=== PATIENT | male | born 1945 | race Native Hawaiian/Other Pacific Islander ===

== ENCOUNTER 2017-07-20 13:12 | Emergency (ER) | payer MEDICARE ==
[2017-07-20 13:19] VITALS: RESP 16; TEMP 98
--- NOTE | 2017-07-20 13:59 | ED ---
General Adult HPI - General Chief complaint: Fall Stated complaint: Foot injury Time Seen by Provider: 07/20/17 13:27 Source: patient, family, RN notes reviewed Mode of arrival: wheelchair Limitations: language barrier - History of Present Illness Initial comments: 71-year-old male presents to the emergency department for chief complaint of left ankle swelling. Patient's son is also helping give history. He states that the patient fell down one step onto his right knee 4 days ago. He also hurt his left ankle. Patient denies any other injuries or head trauma is. Son states that he believes the ankle pain and swelling is due to the fall. patient and son deny history of blood clots or bleeding disorders. Patient has no other complaints at this time. He denies any shortness of breath, chest pain , abdominal pain, nausea or vomiting. - Related Data Home Medications Medication Instructions Recorded Confirmed Fish Oil/Dha/Epa [Fish Oil 1,200 1 cap PO DAILY 07/26/14 07/20/17 mg Fish Oil] Multivitamins, Thera [Multivitamin 1 tab PO DAILY 07/26/14 07/20/17 (formulary)] Lisinopril 30 mg PO DAILY 07/20/17 07/20/17 Previous Rx's Medication Instructions Recorded Aspirin 81 mg PO DAILY chew 07/28/14 Omeprazole [PriLOSEC] 20 mg PO AC-BRKFST capsule. 07/28/14 Simvastatin [Zocor] 80 mg PO DAILY tab 07/28/14 Allergies Allergy/AdvReac Type Severity Reaction Status Date / Time No Known Allergies Allergy Verified 07/20/17 13:59 Review of Systems ROS Statement: Those systems with pertinent positive or pertinent negative responses have been documented in the HPI. ROS Other: All systems not noted in ROS Statement are negative. Past Medical History Past Medical History: CVA/TIA, Hyperlipidemia, Hypertension History of Any Multi-Drug Resistant Organisms: None Reported Past Surgical History: No Surgical Hx Reported Past Psychological History: No Psychological Hx Reported Smoking Status: Current every day smoker Past Alcohol Use History: None Reported Past Drug Use History: None Reported General Exam Limitations: language barrier General appearance: alert, in no apparent distress Respiratory exam: Present: normal lung sounds bilaterally. Absent: respiratory distress, wheezes, rales, rhonchi, stridor Cardiovascular Exam: Present: regular rate, normal rhythm, normal heart sounds. Absent: systolic murmur, diastolic murmur, rubs, gallop, clicks Extremities exam: Present: full ROM (Full range of motion of the left ankle), tenderness (Tenderness to the medial malleolus of the left ankle. No tenderness behind the calf or knee. No tenderness in the foot), normal capillary refill (Refill less than 2 seconds in the left lower extremity. Left PD and PT pulses located with US.), joint swelling (There is mild swelling noted of the medial and lateral left ankle. There is medial ecchymosis noted inferior to the malleolus.). Absent: calf tenderness (No calf tenderness. Negative Homans sign.) Course Vital Signs 07/20/17 13:16 Temperature 98 F Pulse Rate 77 Respiratory 16 Rate Blood Pressure 128/68 O2 Sat by Pulse 98 Oximetry Procedures - Procedures Initial comment: Neurovascular intact before splint application Indication:distal fibula fracture Type: short leg stirrup, left Wounds: no abrasions or lacerations underneath splint Neurovascular status: patient has sensation and movement of digits extending outside the splint, there is no cyanosis, capillary refill < 2 seconds Follow-up: patient given number for orthopedics and instructed to phone to make an appointment. Patient aware he can return to the Emergency Department if any difficulties. Medical Decision Making - Medical Decision Making 71-year-old male presents to the emergency department for a chief complaint of left lower extremity pain 3 days. Patient states he slipped on the last stair and hurt his ankle. Patient denies pain anywhere else. On exam patient does have motion in the left ankle but it is somewhat limited. Patient is tender along the medial malleolus as well as the lateral malleolus. No tenderness in the foot. Ultrasound of the left leg was negative for DVT. X-ray of the left ankle shows an oblique fracture through the distal metaphyseal left fibula with minimal displacement. Patient was splinted in a stirrup splint. He is to follow-up with orthopedics in one to 2 days. He will contact his primary care provider to discuss pain medication options. Patient has no other complaints at this time. He will return to the emergency department if he has any worsening symptoms. Disposition Clinical Impression: Left fibular fracture Disposition: HOME SELF-CARE Condition: Good Instructions: Ankle Fracture (ED) Additional Instructions: Please contact your primary care provider to discuss pain options. Please return to the emergency department if you have any worsening symptoms. Please try not to bear weight on that left leg. Follow-up with orthopedics in one to 2 days. Is patient prescribed a controlled substance at d/c from ED?: No Referrals: Kristine Pena MD [Primary Care Provider] - 1-2 days Nick Dominique DO [Doctor of Osteopathic Medicine] - 1-2 days Time of Disposition: 15:36
--- NOTE | 2017-07-20 14:36 | XR ---
Left ankle HISTORY: Trauma and pain, bruising and swelling 3 views of the left ankle No comparisons Soft tissue swelling is noted. There is an oblique fracture through the distal metaphyseal left fibul a with minimal displacement. Plantar calcaneal spur noted. Degenerative changes incidentally noted at the intertarsal joints. Calcification present at the insertion of the Achilles tendon. IMPRESSION: Distal fibular fracture.
--- NOTE | 2017-07-20 14:45 | US ---
EXAMINATION TYPE: US venous doppler duplex LE LT DATE OF EXAM: 07/20/2017 2:36 PM COMPARISON: NONE CLINICAL HISTORY: Pain. Left ankle pain and swelling x 4 days after fall on stairs SIDE PERFORMED: Left TECHNIQUE: The lower extremity deep venous system is examined utilizing real time linear array sonog denisha with graded compression, doppler sonography and color-flow sonography. VESSELS IMAGED: Common Femoral Vein Deep Femoral Vein Greater Saphenous Vein * Femoral Vein Popliteal Vein Small Saphenous Vein * Proximal Calf Veins (* superficial vessels) Left Leg: Negative for DVT Grayscale, color doppler, spectral doppler imaging performed of the deep veins of the left lower extr emity. There is normal flow, compressibility, vascular waveforms. IMPRESSION: No ultrasound evidence for acute DVT in the left lower extremity.
[2017-07-20 15:52] VITALS: BP 123/71; PULSE 69
== END 2017-07-20 15:50 | disposition home or self-care (01) ==
LOC: EC 13:12
DX: S89.392A Other physeal fracture of lower end of left fibula, initial encounter for closed fracture (principal); F17.200 Nicotine dependence, unspecified, uncomplicated; I10 Essential (primary) hypertension; Z79.899 Other long term (current) drug therapy; W01.0XXA Fall on same level from slipping, tripping and stumbling without subsequent striking against object, initial encounter; W10.9XXA Fall (on) (from) unspecified stairs and steps, initial encounter
CPT/HCPCS: 29515; 99284

== ENCOUNTER 2021-07-31 19:26 | Emergency (ER) | payer MEDICARE ==
[2021-07-31 19:43] VITALS: BP 160/77; PULSE 87; RESP 18; TEMP 99.3
--- NOTE | 2021-07-31 23:05 | ED ---
General Adult HPI - General Chief complaint: Urogenital Stated complaint: Leaking catheter Time Seen by Provider: 07/31/21 20:49 Source: patient, RN notes reviewed Mode of arrival: wheelchair Limitations: language barrier - History of Present Illness Initial comments: 75-year-old male presents to the emergency department accompanied by his son for evaluation of leaking around his Rich catheter. Patient states he missed an appointment today for a prostate procedure. States they noticed leaking around the Rich this afternoon and went to urgent care, but were sent here instead. Son states the Rich catheter has been in place for approximately one month. Patient denies any pain associated with the catheter. No injury, trauma, or accidental tugging on the catheter today. Denies any other issues with catheter function. Reports normal urine output. - Related Data Home Medications Medication Instructions Recorded Confirmed Fish Oil/Dha/Epa [Fish Oil 1,200 1 cap PO DAILY 07/26/14 07/20/17 mg Fish Oil] Multivitamins, Thera [Multivitamin 1 tab PO DAILY 07/26/14 07/20/17 (formulary)] lisinopriL 30 mg PO DAILY 07/20/17 07/20/17 Previous Rx's Medication Instructions Recorded Aspirin 81 mg PO DAILY chew 07/28/14 Omeprazole [PriLOSEC] 20 mg PO AC-BRKFST capsule. 07/28/14 Simvastatin [Zocor] 80 mg PO DAILY tab 07/28/14 Allergies Allergy/AdvReac Type Severity Reaction Status Date / Time No Known Allergies Allergy Verified 06/25/21 12:31 Review of Systems ROS Statement: Those systems with pertinent positive or pertinent negative responses have been documented in the HPI. ROS Other: All systems not noted in ROS Statement are negative. Past Medical History Past Medical History: CVA/TIA, Hyperlipidemia, Hypertension History of Any Multi-Drug Resistant Organisms: None Reported Past Surgical History: No Surgical Hx Reported Past Psychological History: No Psychological Hx Reported Smoking Status: Current every day smoker Past Alcohol Use History: None Reported Past Drug Use History: None Reported General Exam Limitations: language barrier (Patient's son is present at bedside and provides communication assistance) General appearance: alert, in no apparent distress (Well-developed, well- nourished male in no acute distress. Initial temperature 99.3, pulse 87, respirations 18, blood pressure 160/77, pulse ox 98% on room air.) ENT exam: Present: mucous membranes moist Respiratory exam: Present: normal lung sounds bilaterally. Absent: respiratory distress, wheezes, rales, rhonchi, stridor Cardiovascular Exam: Present: regular rate, normal rhythm, normal heart sounds. Absent: systolic murmur, diastolic murmur, rubs, gallop, clicks GI/Abdominal exam: Present: soft, normal bowel sounds. Absent: distended, tenderness, guarding, rebound, rigid exam: Present: other (Rich catheter present. There is some urine noted to be leaking around the catheter, however, leg bag has significant amount of urine collection within it. Son states he is providing care for the patient's catheter.) Back exam: Absent: CVA tenderness (R), CVA tenderness (L) Neurological exam: Present: alert, oriented X3 Psychiatric exam: Present: normal affect, normal mood Skin exam: Present: warm, dry, intact, normal color. Absent: rash Course Vital Signs 07/31/21 19:41 Temperature 99.3 F Pulse Rate 87 Respiratory 18 Rate Blood Pressure 160/77 O2 Sat by Pulse 98 Oximetry - Reevaluation(s) Reevaluation #1: 07/31/21 22:30 Balloon deflated and found to be holding only 6 mLs of water in balloon meant to hold 10mLs. Balloon reinflated with adequate volume. Minimal ongoing leaking and urine noted in catheter and collection bag. He will be discharged home to follow up with urology as soon as possible. Medical Decision Making - Medical Decision Making This is a 75-year-old male with a past medical history of CVA, hypertension, and recent issue with urinary retention. Patient is brought in by his son who is his caregiver and iuss master analyst. Patient began experiencing leaking around his catheter this afternoon. Upon exam, patient is well-appearing and in no acute distress. Vital signs are stable and patient is afebrile. He has complaining of no pain associated with the catheter or in the lower abdomen to indicate concern for urine retention or Rich obstruction. There is a moderate amount of leaking around the Rich initially. Balloon was deflated and found to be deficient in volume therefore reinflated with appropriate amount and patient was monitored. He was noted to have good urine output in leg bag. Minimal amount of urine leaking around the catheter. Was instructed to consider using incontinence pads and to schedule to be seen by urology as soon as possible. Return parameters discussed in detail. Patient and son verbalized understanding and agreed with this plan. Attending: Josephine. Disposition Clinical Impression: Malfunction of Rich catheter Disposition: HOME SELF-CARE Condition: Stable Instructions (If sedation given, give patient instructions): Rich Catheter Placement and Care (ED) Additional Instructions: Utilize incontinence pads if leaking persists. Please call your urologist in the morning to schedule a follow-up appointment as soon as possible. Return to the emergency department with any new, worsening, or concerning symptoms. Is patient prescribed a controlled substance at d/c from ED?: No Referrals: Kristine Pena MD [Primary Care Provider] - 1-2 days Time of Disposition: 23:05
== END 2021-07-31 23:15 | disposition home or self-care (01) ==
LOC: EC 19:26
DX: T83.038A Leakage of other urinary catheter, initial encounter (principal); Z86.73 Personal history of transient ischemic attack (TIA), and cerebral infarction without residual deficits; I10 Essential (primary) hypertension; F17.200 Nicotine dependence, unspecified, uncomplicated

== ENCOUNTER 2023-11-25 12:52 | Inpatient (IN) | payer MEDICARE ==
--- NOTE | 2023-11-25 13:02 | ED ---
General Adult HPI - General Stated complaint: fall, hip injury Time Seen by Provider: 11/25/23 12:55 Source: patient, RN notes reviewed, old records reviewed - History of Present Illness Initial comments: This is a 77-year-old male who is exercising on a stationary bike when he went to get off and fell over and hurt his right hip. Patient states he did not hit his head did not hurt his neck he has no numbness weakness. Patient denies any back or chest pain. Patient has abdominal pain patient denies any upper extremity pain. Patient denies any left lower extremity pain. Patient's only complaint is left hip pain. - Related Data Home Medications Medication Instructions Recorded Confirmed Clopidogrel [Plavix] 75 mg PO DAILY 11/25/23 11/25/23 Lisinopril-Hctz 20-12.5 mg 1 tab PO DAILY 11/25/23 11/25/23 [Zestoretic 20-12.5] Allergies Allergy/AdvReac Type Severity Reaction Status Date / Time No Known Allergies Allergy Verified 11/25/23 17:22 Review of Systems ROS Statement: Those systems with pertinent positive or pertinent negative responses have been documented in the HPI. ROS Other: All systems not noted in ROS Statement are negative. Past Medical History Past Medical History: CVA/TIA, Hyperlipidemia, Hypertension History of Any Multi-Drug Resistant Organisms: None Reported Past Surgical History: No Surgical Hx Reported Past Psychological History: No Psychological Hx Reported Smoking Status: Current every day smoker Past Alcohol Use History: None Reported Past Drug Use History: None Reported General Exam - General Exam Comments Initial Comments: GENERAL: Patient is well-developed and well-nourished. Patient is nontoxic and well- hydrated and is in mild distress. ENT: Neck is soft and supple. No significant lymphadenopathy is noted. Oropharynx is clear. Moist mucous membranes. Neck has full range of motion without eliciting any pain. EYES: The sclera were anicteric and conjunctiva were pink and moist. Extraocular movements were intact and pupils were equal round and reactive to light. Eyelids were unremarkable. PULMONARY: Unlabored respirations. Good breath sounds bilaterally. No audible rales rhonchi or wheezing was noted. CARDIOVASCULAR: There is a regular rate and rhythm without any murmurs gallops or rubs. ABDOMEN: Soft and nontender with normal bowel sounds. SKIN: Skin is clear with no lesions or rashes and otherwise unremarkable. NEUROLOGIC: Patient is alert and oriented x3. Cranial nerves II through XII are grossly intact. Motor and sensory are also intact. Normal speech, volume and content. Symmetrical smile. MUSCULOSKELETAL: Patient is unable to move the left leg at the hip secondary to pain. Patient's leg does appear shortened and mildly internally rotated LYMPHATICS: No significant lymphadenopathy is noted PSYCHIATRIC: Normal psychiatric evaluation. Course Vital Signs 11/25/23 11/25/23 13:13 15:58 Temperature 98.2 F Pulse Rate 51 L 58 L Respiratory 16 18 Rate Blood Pressure 122/53 115/59 O2 Sat by Pulse 98 97 Oximetry Medical Decision Making - Medical Decision Making Was pt. sent in by a medical professional or institution (, PA, BIOMASS TECHNICIAN, urgent care, hospital, or care home...) When possible be specific @ -No Did you speak to anyone other than the patient for history (EMS, parent, family, police, friend...)? What history was obtained from this source @ -No Did you review nursing and triage notes (agree or disagree)? Why? @ -I reviewed and agree with nursing and triage notes Were old charts reviewed (outside hosp., previous admission, EMS record, old EKG, old radiological studies, urgent care reports/EKG's, care home records)? Report findings @ -No old charts were reviewed Differential Diagnosis? @ -Differential Musculoskeletal Muscular strain, contusion, ligament sprain, fracture, arthritis, septic arthritis, bursitis, cellulitis, muscle spasm, nerve compression, DVT, arterial occlusion, herpes zoster, electrolyte abnormality, tumor.... This is not meant to be in all inclusive list EKG interpreted by me (3pts min.). @ -As above X-rays interpreted by me (1pt min.). @ -X-ray shows a subtrochanteric/intertrochanteric fracture of the right hip with some displacement CT interpreted by me (1pt min.). @ -None done U/S interpreted by me (1pt. min.). @ -None done What testing was considered but not performed or refused? (CT, X-rays, U/S, labs)? Why? @ -None What meds were considered but not given or refused? Why? @ -None Did you discuss the management of the patient with other professionals (professionals i.e. , PA, BIOMASS TECHNICIAN, lab, RT, psych nurse, addiction social worker, underground distribution engineer, teacher, special technical operations officer, telehealth case manager)? Give summary @ -I spoke with Dr. Marin he did not want the case because he did not fix those types of fractures. I spoke with Dr. Dominique he excepted the patient. I spoke with Dr. Pena he agreed to be on medical management of this patient. Was smoking cessation discussed for >3mins.? @ -No Was critical care preformed (if so, how long)? @ -No Were there social determinants of health that impacted care today? How? (Homelessness, low income, unemployed, alcoholism, drug addiction, transportation, low edu. Level, literacy, decrease access to med. care, [facility], rehab)? @ -No Was there de-escalation of care discussed even if they declined (Discuss DNR or withdrawal of care, Hospice)? DNR status @ -No What co-morbidities impacted this encounter? (DM, HTN, Smoking, COPD, CAD, Cancer, CVA, ARF, Chemo, Hep., AIDS, mental health diagnosis, sleep apnea, morbid obesity)? @ -None Was patient admitted / discharged? Hospital course, mention meds given and route, prescriptions, significant lab abnormalities, going to OR and other pertinent info. @ -Patient had a hip fracture and will be admitted to Dr. Dominique with a consult to Dr. Pena Undiagnosed new problem with uncertain prognosis? @ -No Drug Therapy requiring intensive monitoring for toxicity (Heparin, Nitro, Insulin, Cardizem)? @ -No Were any procedures done? @ -No Diagnosis/symptom? @ -Right hip fracture Acute, or Chronic, or Acute on Chronic? @ -Acute Uncomplicated (without systemic symptoms) or Complicated (systemic symptoms)? @ -Complicated Side effects of treatment? @ -No Exacerbation, Progression, or Severe Exacerbation? @ -No Poses a threat to life or bodily function? How? (Chest pain, [place], [place], pneumonia, PE, COPD, DKA, ARF, appy, cholecystitis, CVA, Diverticulitis, Homicidal, Suic idal, threat to staff... and all critical care pts) @ -Yes if he does not get this repaired patient will not be able to ambulate - Lab Data Result diagrams: 11/25/23 13:16 11/25/23 13:16 Lab Results 11/25/23 11/25/23 11/25/23 Range/Units 13:16 13:16 13:16 WBC 9.0 (3.8-10.6) k/uL RBC 4.26 L (4.30-5.90) m/uL Hgb 13.2 (13.0-17.5) gm/dL Hct 40.4 (39.0-53.0) % MCV 94.8 (80.0-100.0) fL MCH 31.1 (25.0-35.0) pg MCHC 32.8 (31.0-37.0) g/dL RDW 12.8 (11.5-15.5) % Plt Count 260 (150-450) k/uL MPV 6.9 Neutrophils % 81 % Lymphocytes % 12 % Monocytes % 4 % Eosinophils % 2 % Basophils % 0 % Neutrophils # 7.3 (1.3-7.7) k/uL Lymphocytes # 1.1 (1.0-4.8) k/uL Monocytes # 0.4 (0-1.0) k/uL Eosinophils # 0.2 (0-0.7) k/uL Basophils # 0.0 (0-0.2) k/uL PT 10.5 (10.0-12.5) sec INR 1.0 (<1.2) APTT 23.9 (22.0-30.0) sec Sodium 137 (137-145) mmol/L Potassium 3.8 (3.5-5.1) mmol/L Chloride 104 (98-107) mmol/L Carbon Dioxide 29 (22-30) mmol/L Anion Gap 4 mmol/L BUN 27 H (9-20) mg/dL Creatinine 0.95 (0.66-1.25) mg/dL Est GFR (CKD-EPI)AfAm >90 (>60 ml/min/1.73 sqM) Est GFR (CKD-EPI)NonAf 78 (>60 ml/min/1.73 sqM) Glucose 97 (74-99) mg/dL Calcium 8.5 (8.4-10.2) mg/dL Total Bilirubin 0.4 (0.2-1.3) mg/dL AST 27 (17-59) U/L ALT 14 (4-49) U/L Alkaline Phosphatase 76 (38-126) U/L Total Protein 6.7 (6.3-8.2) g/dL Albumin 3.6 (3.5-5.0) g/dL Disposition Clinical Impression: Closed right hip fracture Disposition: ADMITTED IP TO THIS HOSP Referrals: None,Stated [REFERRING] - 1-2 days Time of Disposition: 18:21
[2023-11-25 13:33] LABS: Basophils % (A) 0 %; Eosinophils # (A) 0.2 k/uL (0-0.7); Eosinophils % (A) 2 %; HCT 40.4 % (39.0-53.0); HGB 13.2 gm/dL (13.0-17.5); Lymphocytes # (A) 1.1 k/uL (1.0-4.8); Lymphocytes % (A) 12 %; MCH 31.1 pg (25.0-35.0); MCHC 32.8 g/dL (31.0-37.0); MCV 94.8 fL (80.0-100.0); Mean Platelet Volume 6.9; Monocytes # (A) 0.4 k/uL (0-1.0); Monocytes % (A) 4 %; Neutrophils # (A) 7.3 k/uL (1.3-7.7); Neutrophils % (A) 81 %; Platelet Count 260 k/uL (150-450); RBC 4.26 m/uL (4.30-5.90); RDW 12.8 % (11.5-15.5)
[2023-11-25 13:38] LABS: Partial Thromboplastin Time 23.9 sec (22.0-30.0); Prothrombin Time 10.5 sec (10.0-12.5)
[2023-11-25 13:56] LABS: ALT 14 U/L (4-49); AST 27 U/L (17-59); African American GFR (CKD) >90 (>60 ml/min/1.73 sqM); Albumin 3.6 g/dL (3.5-5.0); Alkaline Phosphatase 76 U/L (38-126); Anion Gap 4 mmol/L; Blood Urea Nitrogen 27 mg/dL (9-20); Calcium 8.5 mg/dL (8.4-10.2); Carbon Dioxide 29 mmol/L (22-30); Chloride 104 mmol/L (98-107); Glucose 97 mg/dL (74-99); Non-African American GFR(CKD) 78 (>60 ml/min/1.73 sqM); Potassium 3.8 mmol/L (3.5-5.1); Sodium 137 mmol/L (137-145); Total Bilirubin 0.4 mg/dL (0.2-1.3); Total Protein 6.7 g/dL (6.3-8.2)
--- NOTE | 2023-11-25 14:23 | XR ---
EXAMINATION TYPE: XR chest 1V portable DATE OF EXAM: 11/25/2023 1:43 PM CLINICAL INDICATION: Male, 77 years old with history of Short of breath; [facility] COMPARISON: None TECHNIQUE: XR chest 1V portable Frontal view of the chest. FINDINGS: Lungs/Pleura: There is no evidence of pleural effusion, focal consolidation, or pneumothorax. Pulmonary vascularity: Unremarkable. Heart/mediastinum: Cardiomediastinal silhouette is unremarkable. Musculoskeletal: No acute osseous pathology. IMPRESSION: No acute cardiopulmonary disease/process.
--- NOTE | 2023-11-25 14:49 | XR ---
EXAMINATION TYPE: XR Hip RT and AP Pelvis DATE OF EXAM: 11/25/2023 2:24 PM CLINICAL INDICATION: Male, 77 years old with history of trauma; PH[facility] COMPARISON: None. TECHNIQUE: XR Hip RT and AP Pelvis; hip was examined in the frontal and lateral projections and a AP pelvis. FINDINGS/IMPRESSION: Comminuted right femoral subtrochanteric/intertrochanteric fracture with varus deformity. The bony pe lvis and left femur appear intact.
[2023-11-25] MEDS: SODIUM CHLORIDE 0.9% 1,000 ML IV ONE (19:08)
[2023-11-25] MEDS: HYDROmorphone 0.5 MG/0.5 ML SYRINGE IVP PRN (19:46)
[2023-11-26] MEDS: LISINOPRIL-HCTZ 20-12.5 MG 1 EACH TAB PO SCH (10:36)
--- NOTE | 2023-11-26 10:49 | P.HPOR ---
History of Present Illness H&P Date: 11/26/23 This is a 77-year-old male who is admitted for a right hip fracture. Patient is seen and evaluated at bedside today along with his son. The patient's son provides the history due to a language barrier. The patient's son states that Chevy lives at home with him and walks without a walker or cane. Per the son, the patient fell while trying to get off of a stationary exercise bike on 11/25/2023. The patient was taken to the emergency room via ambulance where x-rays revealed a comminuted subtrochanteric fracture of the right femur.The patient reports taking Plavix and aspirin along with a blood pressure medication. Patient and son report that the last dose of Plavix was on 11/25/2023. The patient's past medical history is significant for hypertension, hyperlipidemia and history of CVA/TIA. Patient denies any headache, nausea, head injury, loss of consciousness, abdominal pain, numbness, weakness, tingling, fever/chills or chest pain. Review of Systems See HPI. Past Medical History Past Medical History: CVA/TIA, Hyperlipidemia, Hypertension History of Any Multi-Drug Resistant Organisms: None Reported Past Surgical History: No Surgical Hx Reported Past Psychological History: No Psychological Hx Reported Smoking Status: Current every day smoker Past Alcohol Use History: None Reported Additional Past Alcohol Use History / Comment(s): Has history of alcohol abuse in the past, quit about 5 years ago Past Drug Use History: None Reported Medications and Allergies Home Medications Medication Instructions Recorded Confirmed Type Clopidogrel [Plavix] 75 mg PO DAILY 11/25/23 11/25/23 History Lisinopril-Hctz 20-12.5 mg 1 tab PO DAILY 11/25/23 11/25/23 History [Zestoretic 20-12.5] Allergies Allergy/AdvReac Type Severity Reaction Status Date / Time No Known Allergies Allergy Verified 11/25/23 17:22 Physical Examination On exam patient is comfortably in bed in no acute distress. Patient is alert and oriented 3. Right lower extremity: On exam there is tenderness to palpation over the right upper thigh. Skin is intact. There is no ecchymosis or erythema. Patient has limited motion of the right hip and knee due to acute hip fracture. Patient has full motion of the right foot and ankle. There is no tenderness to palpation over the right knee. Calf is soft and nontender to palpation. Sensation intact. Neurovascular status and circulatory status are intact. Exams of the left lower extremity, bilateral upper extremities and neck are within normal limits. Head is normocephlaic and atraumatic. Results An x-ray report of the right hip and pelvis dated 11/25/2023 shows: Comminuted right femoral subtrochanteric/intertrochanteric fracture with varus deformity. The bony pelvis and left femur appear intact. - Labs Labs: Abnormal Lab Results - Last 24 Hours (Table) 11/25/23 11/25/23 Range/Units 13:16 13:16 RBC 4.26 L (4.30-5.90) m/uL BUN 27 H (9-20) mg/dL H & H 11/25/23 Range/Units 13:16 Hgb 13.2 (13.0-17.5) gm/dL Hct 40.4 (39.0-53.0) % Coagulation 11/25/23 Range/Units 13:16 INR 1.0 (<1.2) Result Diagrams: 11/25/23 13:16 11/25/23 13:16 Assessment and Plan (1) Subtrochanteric fracture of hip Current Visit: Yes Status: Acute Code(s): S72.23XA - DISPLACED SUBTROCHANTERIC FRACTURE OF UNSP FEMUR, INIT SNOMED Code(s): 529141595 (2) Closed right hip fracture Current Visit: Yes Status: Acute Code(s): S72.001A - FRACTURE OF UNSP PART OF NECK OF RIGHT FEMUR, INIT SNOMED Code(s): 629728569 Plan: 1. NPO 2. Bed rest and pain control. Ice and elevate the leg for swelling. 3. Appreciate input from internal medicine. 4. Planning for closed reduction and intramedullary nailing of the right femur later today pending medical clearance and patient consent.
--- NOTE | 2023-11-26 12:32 | P.CONS ---
History of Present Illness - Reason for Consult Consult date: 11/26/23 - History of Present Illness Chevy French, is a 77-year-old male who presented to [facility] emergency room after sustaining a fall from his stationary bike at home and complaining of right hip pain he was evaluated in the emergency room, and had evidence of comminuted right femoral subtrochanteric/intertrochanteric fracture with varus deformity, he is scheduled for orthopedic surgery today. Medical c onsultation was requested for clearance for surgery and for medical management while hospitalized. On presentation to emergency room, vital examination revealed a temperature of 98.2 pulse 51 respiration 16 blood pressure 122/53 pulse ox 98% on room air Laboratory data revealed a white blood count of 9.0 hemoglobin 13.2 platelet count 260, sodium 137 potassium 3.8 chloride 104 CO2 29 BUN 27 creatinine 0.95 AST 27 ALT 14, chest x-ray was within normal limits Past medical history is significant for history of hypertension, history of hyperlipidemia, history of stroke in 2014 On review of systems patient is alert and oriented x 3 he denies any fever or chills no headache or dizziness no chest pain no shortness of breath no cough no nausea or vomiting no abdominal pain no diarrhea no urinary symptoms Past Medical History Past Medical History: CVA/TIA, Hyperlipidemia, Hypertension History of Any Multi-Drug Resistant Organisms: None Reported Past Surgical History: No Surgical Hx Reported Past Psychological History: No Psychological Hx Reported Smoking Status: Current every day smoker Past Alcohol Use History: None Reported Additional Past Alcohol Use History / Comment(s): Has history of alcohol abuse in the past, quit about 5 years ago Past Drug Use History: None Reported Medications and Allergies Home Medications Medication Instructions Recorded Confirmed Type Clopidogrel [Plavix] 75 mg PO DAILY 11/25/23 11/25/23 History Lisinopril-Hctz 20-12.5 mg 1 tab PO DAILY 11/25/23 11/25/23 History [Zestoretic 20-12.5] Allergies Allergy/AdvReac Type Severity Reaction Status Date / Time No Known Allergies Allergy Verified 11/25/23 17:22 Physical Exam Vitals: Vital Signs Temp Pulse Pulse Resp BP BP Pulse Ox 11/26/23 06:52 97.8 F 53 L 18 112/68 95 11/26/23 00:57 98.1 F 56 L 18 106/58 97 11/25/23 21:16 98.4 F 54 L 18 108/68 93 L 11/25/23 19:48 60 16 132/56 99 11/25/23 18:00 62 16 142/84 97 11/25/23 15:58 58 L 18 115/59 97 11/25/23 13:13 98.2 F 51 L 16 122/53 98 Intake and Output 11/25/23 11/26/23 11/26/23 22:59 06:59 14:59 Intake Total 10 Balance 10 Intake: IV 10 Invasive Line 1 10 Other: Voiding Method Urinal Diaper # Voids 4 Weight 104.326 kg In general patient is alert and oriented x 3 in no distress HEENT head normocephalic and atraumatic Neck is supple no JVD no goiter no lymphadenopathy no carotid bruit Chest examination is clear to auscultation no crackles no wheezing Cardiac exam reveals regular heart sounds S1 and S2 no gallops no murmurs Abdomen is soft nontender no organomegaly with normal bowel sounds Extremity exam reveals no edema no cyanosis or clubbing Neurological examination reveals no gross focal deficits Results CBC & Chem 7: 11/25/23 13:16 11/25/23 13:16 Labs: Abnormal Lab Results - Last 24 Hours (Table) 11/25/23 11/25/23 Range/Units 13:16 13:16 RBC 4.26 L (4.30-5.90) m/uL BUN 27 H (9-20) mg/dL Assessment and Plan Plan: Fall with right hip fracture Abnormal EKG reveals bifascicular block, this is a new finding for patient Underlying history of hypertension Underlying history of hyperlipidemia Previous history of stroke Previous history of tobacco abuse At this time patient was seen and examined Home medications reviewed and reordered, will hold Plavix in anticipation for surgery I have asked for an echocardiogram, and a cardiology consult for surgical clearance due to abnormal EKG Will follow closely
[2023-11-26 14:06] LABS: Appearance,Urine Clear (Clear); Bilirubin,Urine Negative (Negative); Blood,Urine Negative (Negative); Color,Urine Yellow; Glucose,Urine (UA) Negative (Negative); Hyaline Casts,Urine 1 /lpf (0-2); Ketones,Urine Negative (Negative); Leukocyte Esterase,Urine Negative (Negative); Mucus,Urine Many /hpf; Nitrite,Urine Negative (Negative); PH, Urine 5.5 (5.0-8.0); Protein,Urine 1+ (Negative); RBC,Urine 1 /hpf (0-5); Specific Gravity,Urine 1.027 (1.001-1.035); Squamous Epithelial Cell,Urine 1 /hpf (0-4); Urobilinogen,Urine <2.0 mg/dL (<2.0); WBC,Urine 4 /hpf (0-5)
[2023-11-26] MEDS: NICOTINE 21MG/24HR PATCH TRANSDERM SCH (17:34)
--- NOTE | 2023-11-27 08:09 | CA ---
Transthoracic Echo Report Name: Chevy French Age: 77 Gender: M : 1945 Exam Date: 11/26/2023 13:54 Exam Location: [facility] Ht (in): 72 Wt (lb): 230 Ordering Physician: Kristine Pena MD Attending/Referring Phys: Loan Processing Supervisor Berna Roger RDCS Procedure CPT: Indications: Pre Op Cardiac Hx: Technical Quality: Poor Contrast 1: Definity Total Dose (mL): 2 Contrast 2: Total Dose (mL): MEASUREMENTS (Male / Female) Normal Values 2D ECHO LV Diastolic Diameter PLAX 4.3 cm 4.2 - 5.9 / 3.9 - 5.3 cm LV Systolic Diameter PLAX 2.7 cm IVS Diastolic Thickness 1.4 cm 0.6 - 1.0 / 0.6 - 0.9 cm LVPW Diastolic Thickness 1.5 cm 0.6 - 1.0 / 0.6 - 0.9 cm LV Relative Wall Thickness 0.7 RV Internal Dim ED PLAX 1.9 cm LVOT Diameter 2.0 cm LA Systolic Diameter LX 4.1 cm 3.0 - 4.0 / 2.7 - 3.8 cm M-MODE Aortic Root Diameter MM 3.3 cm LA Systolic Diameter MM 4.2 cm LA Ao Ratio MM 1.3 AV Cusp Separation MM 0.8 cm DOPPLER AV Peak Velocity 270.4 cm/s AV Peak Gradient 29.3 mmHg AV Mean Velocity 224.0 cm/s AV Mean Gradient 21.2 mmHg AV Velocity Time Integral 58.9 cm LVOT Peak Velocity 107.7 cm/s LVOT Peak Gradient 4.6 mmHg LVOT Velocity Time Integral 28.5 cm LVOT Stroke Volume 92.9 cm??? LVOT Stroke Volume Index 41.1 ml/m??? LVOT Cardiac Index 2552.8 cm???/min???m??? AV Area Cont Eq vti 1.6 cm??? AV Area Cont Eq pk 1.3 cm??? TR Peak Velocity 262.7 cm/s TR Peak Gradient 27.6 mmHg Right Ventricular Systolic Press 37.6 mmHg FINDINGS Left Ventricle Left ventricular ejection fraction is estimated at 60-65 %. Moderately increased septal wall thickness. Left ventricular cavity size normal.Normal left ventricular systolic function with no obvious regional wall motion abnormalities. Right Ventricle Normal right ventricular size and function. Mild pulmonary hypertension. Right Atrium Mild right atrial dilatation. Left Atrium Mildly increased left atrial diameter. Mitral Valve Structurally normal mitral valve. Mitral valve thickened. Mitral annular calcification. Mild mitral regurgitation. Aortic Valve Aortic valve not well visualized. Moderate aortic stenosis with a peak gradient of 29 mmHg and a mean gradient of 21 mmHg. No aortic regurgitation. Tricuspid Valve Structurally normal tricuspid valve. Wizk-lb-ffulusly tricuspid regurgitation. No tricuspid stenosis. Pulmonic Valve Structurally normal pulmonic valve. Trace pulmonic regurgitation. No pulmonic stenosis. Pericardium No pericardial or pleural effusion. Aorta Normal size aortic root and proximal ascending aorta. CONCLUSIONS Left ventricular ejection fraction is estimated at 60-65 % Moderately increased septal wall thickness. No regional wall motion abnormality Moderate aortic stenosis , mean gradient 21 mmHg Mild MR, Mod TR RVPS 38 mmHg, mild Pulmonary htn Previewed by: Dr Luis Frederick (Electronically Signed) Final Date: 27 November 2023 08:09
[2023-11-27 10:12] LABS: ALT 13 U/L (10-49); AST 32 U/L (14-35); Albumin 3.5 g/dL (3.8-4.9); Alkaline Phosphatase 64 U/L (41-126); BUN/Creat Ratio 20.33 Ratio (12.00-20.00); Blood Urea Nitrogen 18.3 mg/dL (9.0-27.0); Calcium 8.3 mg/dL (8.7-10.3); Carbon Dioxide 24.9 mmol/L (21.6-31.8); Chloride 103 mmol/L (96-109); Globulin 2.5 g/dL (1.6-3.3); Glucose 89 mg/dL (70-110); Sodium 136 mmol/L (135-145); Total Bilirubin 0.5 mg/dL (0.3-1.2)
--- NOTE | 2023-11-27 11:04 | P.PN ---
Subjective Progress Note Date: 11/27/23 Chevy French, is a 77-year-old male who presented to [facility] emergency room after sustaining a fall from his stationary bike at home and complaining of right hip pain he was evaluated in the emergency room, and had evidence of comminuted right femoral subtrochanteric/intertrochanteric fracture with varus deformity, he is scheduled for orthopedic surgery today. Medical consultation was requested for clearance for surgery and for medical management while hospitalized. On presentation to emergency room, vital examination revealed a temperature of 98.2 pulse 51 respiration 16 blood pressure 122/53 pulse ox 98% on room air Laboratory data revealed a white blood count of 9.0 hemoglobin 13.2 platelet count 260, sodium 137 potassium 3.8 chloride 104 CO2 29 BUN [address] 27 ALT 14, chest x-ray was within normal limits Past medical history is significant for history of hypertension, history of hyperlipidemia, history of stroke in 2014 On review of systems patient is alert and oriented x 3 he denies any fever or chills no headache or dizziness no chest pain no shortness of breath no cough no nausea or vomiting no abdominal pain no diarrhea no urinary symptoms On 11/27/2023 patient was seen and examined on the medical floor he is alert and oriented x 3 in no apparent distress, there is no fever or chills no headache or dizziness no chest pain no shortness of breath no cough no nausea or vomiting no abdominal pain no diarrhea no urinary symptoms. EKG revealed sinus bradycardia with right bundle branch block and left anterior fascicular block, patient previously had a normal EKG in 2014. echocardiogram was done and revealed normal ejection fraction of 60 to 65%, at this time we are awaiting cardiology evaluation and clearance for surgery. Objective - Vital Signs Vital signs: Vital Signs Temp 98.4 F 11/27/23 07:22 Pulse 69 11/27/23 07:22 Resp 16 11/27/23 07:22 BP 121/70 11/27/23 07:22 Pulse Ox 96 11/27/23 07:22 FiO2 Intake & Output 11/26/23 11/27/23 11/27/23 18:59 06:59 18:59 Other: Voiding Method Urinal Diaper # Voids 1 4 - Exam In general patient is alert and oriented x 3 in no distress HEENT head normocephalic and atraumatic Neck is supple no JVD no goiter no lymphadenopathy no carotid bruit Chest examination is clear to auscultation no crackles no wheezing Cardiac exam reveals regular heart sounds S1 and S2 no gallops no murmurs Abdomen is soft nontender no organomegaly with normal bowel sounds Extremity exam reveals no edema no cyanosis or clubbing Neurological examination reveals no gross focal deficits - Labs CBC & Chem 7: 11/25/23 13:16 11/27/23 05:13 Labs: Abnormal Lab Results - Last 24 Hours (Table) 11/26/23 11/27/23 Range/Units Unknown 05:13 BUN/Creatinine Ratio 20.33 H (12.00-20.00) Ratio Calcium 8.3 L (8.7-10.3) mg/dL Total Protein 6.0 L (6.2-8.2) g/dL Albumin 3.5 L (3.8-4.9) g/dL Albumin/Globulin Ratio 1.40 L (1.60-3.17) Ratio Urine Protein 1+ H (Negative) Urine Mucus Many H (None) /hpf Assessment and Plan Plan: Fall with right hip fracture Abnormal EKG reveals bifascicular block, this is a new finding for patient Underlying history of hypertension Underlying history of hyperlipidemia Previous history of stroke Previous history of tobacco abuse At this time patient was seen and examined Home medications reviewed and reordered, will hold Plavix in anticipation for surgery I have asked for an echocardiogram, and a cardiology consult for surgical clearance due to abnormal EKG Will follow closely
[2023-11-27 12:04] LABS: Basophils # (A) 0.03 X 10*3/uL (0.00-0.10); Basophils % (A) 0.4 %; Eosinophils # (A) 0.31 X 10*3/uL (0.04-0.35); Eosinophils % (A) 4.6 %; HCT 34.4 % (39.6-50.0); HGB 11.2 g/dL (13.0-17.0); Lymphocytes # (A) 0.86 X 10*3/uL (0.90-5.00); Lymphocytes % (A) 12.9 %; MCH 30.8 pg (27.0-32.0); MCHC 32.6 g/dL (32.0-37.0); MCV 94.5 FL (80.0-97.0); Mean Platelet Volume 9.5 FL (9.5-12.2); Monocytes # (A) 0.53 X 10*3/uL (0.20-1.00); Monocytes % (A) 7.9 %; NRBC Per 100 WBC 0 X 10*3/uL (0.00-0.01); Neutrophils # (A) 4.88 X 10*3/uL (1.80-7.70); Neutrophils % (A) 73.2 %; Platelet Count 188 X 10*3/uL (140-440); RBC 3.64 X 10*6/uL (4.40-5.60); RDW 13.1 % (11.5-14.5); WBC 6.68 X 10*3/uL (4.50-10.00)
--- NOTE | 2023-11-27 13:38 | P.CRDCN ---
History of Present Illness Consult date: 11/27/23 History of present illness: HISTORY OF PRESENTING ILLNESS Patient is a 77-year-old male with past medical history of a CVA, essential hypertension. Patient presented to the hospital after sustaining a fall from a stationary bike at home and complaining of right hip pain. On evaluating him in the emergency room it was noticed that he had comminuted right femoral subt rochanteric intertrochanteric fracture with varus deformity. He has been planned for hip surgery and cardiology was consulted for perioperative cardiac risk assessment. Patient denies any history of chest pain chest pressure or palpitations. He denies any symptoms of shortness of breath orthopnea or paroxysmal nocturnal dyspnea prior to his fall. He denies any loss of consciousness during his fall or any prior increased concerns of falling or generalized weakness. He reports that he was fairly physically active prior to this fall and was able to go up 1- 2 flight of stairs without any limitations. His ECG shows sinus rhythm with right bundle branch block. His echocardiogram showed an EF of 55%, mild LVH with moderate aortic stenosis mean gradient around 21 mmHg. REVIEW OF SYSTEMS 14 point review of system is negative except what is mentioned above in HPI. PHYSICAL EXAMINATION Vital signs reviewed. Head: Normocephalic. Eyes: Sclerae nonicteric. Neck: Brisk carotid upstroke, no jugular venous distention. Lungs: Clear to auscultation. Heart: Regular rate and rhythm, S1-S2, no S3, no murmur or rub. Abdomen: Soft nontender, positive bowel sounds. Extremities: No edema, intact distal pulses. Neuro: Alert, oritented, no focal deficits. Detailed neuro exam was not performed. ASSESSMENT Perioperative cardiac risk assessment for hip surgery Mechanical fall with right hip fracture Moderate asymptomatic aortic stenosis Essential hypertension Prior history of CVA. No recurrence of CVA since 1 episode Ex-smoker PLAN Continue his antihypertensives. He is on Plavix for CVA. Hold this Plavix for surgery. Put patient on aspirin 81 mg during perioperative and postoperative.. Patient is otherwise cleared from cardiovascular standpoint to undergo surgery. He is at low to moderate risk for a moderate risk procedure. Patient should follow-up with cardiology outpatient for moderate aortic stenosis surveillance. Luis Frederick MD, FACC, RPVI Thank you for allowing [facility] to participate in this patient's care. Feel free to reach out in case of any followup questions. Past Medical History Past Medical History: CVA/TIA, Hyperlipidemia, Hypertension History of Any Multi-Drug Resistant Organisms: None Reported Past Surgical History: No Surgical Hx Reported Past Psychological History: No Psychological Hx Reported Smoking Status: Current every day smoker Past Alcohol Use History: None Reported Additional Past Alcohol Use History / Comment(s): Has history of alcohol abuse in the past, quit about 5 years ago Past Drug Use History: None Reported Medications and Allergies Home Medications Medication Instructions Recorded Confirmed Type Clopidogrel [Plavix] 75 mg PO DAILY 11/25/23 11/25/23 History Lisinopril-Hctz 20-12.5 mg 1 tab PO DAILY 11/25/23 11/25/23 History [Zestoretic 20-12.5] Allergies Allergy/AdvReac Type Severity Reaction Status Date / Time No Known Allergies Allergy Verified 11/25/23 17:22 Physical Exam Vitals: Vital Signs Temp Pulse Resp BP Pulse Ox 11/27/23 07:22 98.4 F 69 16 121/70 96 11/27/23 01:08 98.4 F 60 18 121/69 94 L 11/26/23 19:12 98.4 F 60 18 116/68 94 L Intake and Output 11/26/23 11/27/23 11/27/23 22:59 06:59 14:59 Other: Voiding Method Urinal Diaper # Voids 1 4 Results 11/27/23 05:13 11/27/23 05:13 Cardiac Enzymes 11/27/23 Range/Units 05:13 AST 32 (14-35) U/L CBC 11/27/23 Range/Units 05:13 WBC 6.68 (4.50-10.00) X 10*3/uL RBC 3.64 L (4.40-5.60) X 10*6/uL Hgb 11.2 L (13.0-17.0) g/dL Hct 34.4 L (39.6-50.0) % Plt Count 188 (140-440) X 10*3/uL Comprehensive Metabolic Panel 11/27/23 Range/Units 05:13 Sodium 136 (135-145) mmol/L Potassium 4.0 (3.5-5.5) mmol/L Chloride 103 (96-109) mmol/L Carbon Dioxide 24.9 (21.6-31.8) mmol/L BUN 18.3 (9.0-27.0) mg/dL Creatinine 0.9 (0.6-1.5) mg/dL Glucose 89 (70-110) mg/dL Calcium 8.3 L (8.7-10.3) mg/dL AST 32 (14-35) U/L ALT 13 (10-49) U/L Alkaline Phosphatase 64 (41-126) U/L Total Protein 6.0 L (6.2-8.2) g/dL Albumin 3.5 L (3.8-4.9) g/dL Current Medications Generic Name Dose Route Start Last Admin Trade Name Freq PRN Reason Stop Dose Admin Lisinopril/HCTZ 1 each 11/26/23 11:00 11/27/23 09:24 Lisinopril-Hctz 20-12.5 Mg 1 Each Tab PO 1 each DAILY MARLENA Administration Hydromorphone HCl 0.5 mg 11/25/23 18:22 11/27/23 07:36 Hydromorphone 0.5 Mg/0.5 Ml Syringe IVP 0.5 mg Q4HR PRN Administration Pain Nicotine 1 patch 11/26/23 17:30 11/27/23 10:30 Nicotine 21mg/24hr Patch TRANSDERM Not Given DAILY MARLENA Intake and Output 11/26/23 11/27/23 11/27/23 22:59 06:59 14:59 Other: Voiding Method Urinal Diaper # Voids 1 4 11/27/23 05:13 11/27/23 05:13
[2023-11-27] MEDS ORDERED: GLYCOPYRROLATE 0.2 MG/ML 2 ML VIAL ONE (14:01)
[2023-11-27] MEDS ORDERED: DEXAMETHASONE SOD PHOSPHATE 4 MG/ML 1 ML VIAL ONE (14:01)
[2023-11-27] MEDS ORDERED: SUCCINYLCHOLINE CHLORIDE 200 MG/10 ML VIAL IV ONE (14:01)
[2023-11-27] MEDS ORDERED: ROCURONIUM 10 MG/ML (5 ML VIAL) IV ONE (14:01)
[2023-11-27] MEDS ORDERED: MIDAZOLAM 2 MG/2 ML VIAL ONE (14:01)
[2023-11-27] MEDS ORDERED: NEOSTIGMINE 1 MG/ML 10 ML VIAL ONE (14:01)
[2023-11-27] MEDS ORDERED: fentaNYL (PF) 50 MCG/ML 2 ML AMP ONE (14:01)
[2023-11-27] MEDS ORDERED: ONDANSETRON 4 MG/2 ML VIAL ONE (14:01)
[2023-11-27] MEDS ORDERED: LIDOCAINE 1% INJ 10MG/ML (20 ML MDV) ONE (14:01)
[2023-11-27] MEDS ORDERED: ETOMIDATE 2 MG/ML 10 ML VIAL ONE (14:01)
[2023-11-27] MEDS: SODIUM CHLORIDE 0.9% 100 ML with ceFAZolin 2,000 MG IV ONE (14:05)
[2023-11-27] MEDS: LACTATED RINGERS 1,000 ML IV ONE ×3 (14:05→15:13)
--- NOTE | 2023-11-27 15:24 | P.OP ---
Date of Procedure: 11/27/23 Preoperative Diagnosis: Reverse oblique comminuted and displaced subtrochanteric fracture right femur Postoperative Diagnosis: Reverse oblique comminuted and displaced subtrochanteric fracture right femur Procedure(s) Performed: Close reduction and trochanteric nailing right femur Implants: [employer] Intertan nail 130, 11.5 mm x 18 cm. [employer] Intertan integrated-interlocking lag screw, 105 mm lag screw, 100 mm compression screw. [employer] L-P screw, 5.0 mm x 42.5 mm. Anesthesia: spinal Surgeon: Nick Dominique Estimated Blood Loss (ml): 100 Pathology: none sent Condition: stable Disposition: PACU Indications for Procedure: This is a 77-year-old gentleman that sustained a ground-level fall at home. X- rays demonstrated a comminuted displaced reverse oblique subtrochanteric fract ure of his right femur. After discussing the surgical nonsurgical treatment options with him and his family at length, they agreed to proceed with a close reduction and intramedullary nailing of the right femur. Formed consent was obtained Operative Findings: The operative findings are consistent with a closed comminuted and displaced reverse oblique subtrochanteric fracture of the right femur Description of Procedure: The patient was seen in the preoperative area, consent was reviewed, and the operative site was marked with a skin marker. The surgical procedure was discussed at length with both the patient and the family at the bedside. All questions were answered to the best of my ability. The patient was brought to the operating room and placed on the fracture table. Anesthesia was administered by the anesthesia department. 2 g of Ancef were administered intravenously. The patient was placed supine on the fracture table with the fractured extremity in traction boot. The other extremity was placed in a well leg thomas and the bony prominences were well padded. A universal timeout was then performed which confirmed the patient's name, surgical site, ALLERGIES, and consent. Fracture reduction was performed with a traction and abduction maneuver which was confirmed with fluoroscopy, both AP and lateral views.. After reduction was performed, the extremity was then prepped with ChloraPrep solution and draped in the usual sterile fashion. Utilizing fluoroscopy to identify the tip of the greater trochanter, a 3 cm longitudinal incision was made just proximal to the greater trochanter. Incision was carried through the fascia to the tip of the greater trochanter. Utilizing a curved awl, the entry point was created at the tip of the greater trochanter and centralized in the AP and lateral planes. These locations were confirmed by fluoroscopy. A guidewire was then inserted down the medullary canal. Sequentially reaming of the femur was performed to 13 mm distally and 17 mm proximally with the channel reamer. After reaming, appropriate size nail was inserted over the guidewire. The nail was inserted to the appropriate depth and the guidewire was removed. Placement of the kedar was confirmed with both AP and lateral fluoroscopic views. The lag screw drill sleeve was placed in the jig and a small skin incision was made on the lateral aspect of the leg and the lag screw drill sleeve was locked into the guide. The 3.2 mm guide pin sleeve was inserted through the lag screw drill sleeve down to bone. A 3.2 mm distally threaded guidewire was inserted through the guide pin sleeve. The guidewire was inserted in the desired position in the femoral head, both anterior and posterior. The lag screw length cage was inserted over the guidepin to the back of the lag screw drill sleeve. Lag screw length was then measured from the cage. Next, the 7.0 mm compression screw starter drill was inserted in the lag screw drill sleeve beneath the guidepin. The compression screw starter drill was advanced under power until it abutted the back and of the lag screw drill sleeve. The 7.0 mm compression screw drill was inserted through the lag screw drill sleeve into the hole created by the compression screw starter drill. This was advanced under fluoroscopy to a depth 5 mm less and the measurement taken for the guidepin. The compression screw drill was removed and the antirotation bar was inserted into the same hole. The 3.2 mm guide pin sleeve was then removed from the drill guide. The lag screw drill was then inserted to a depth that was measured by the lag screw gauge. This was done under fluoroscopy. The lag screw was inserted over the guidewire to the appropriate depth using fluoro scopy. Traction was then released. The antirotation bar was then removed and the compression screw was advanced through the lag screw drill sleeve beneath the lag screw. This was advanced to the appropriate compression was achieved. The proximal drill guide was then removed and the distal drill guide was then inserted in the jig. Skin incision was made down to bone and the distal drill guide was then placed. Distal hole was then drilled with a 4.0 mm drill and measured to the appropriate depth. Distal screw was then placed. The entire assembly was then removed and final fluoroscopic x-rays were obtained. The wounds were then irrigated copiously with saline solution. Fascia was closed with 0-Vicryl. Subcutaneous tissues were closed with 2-0 Vicryl and the skin was closed with emma. Sterile dressings were applied. The patient was transported to the recovery room in stable condition.
--- NOTE | 2023-11-27 15:36 | XR ---
Right hip. HISTORY: Right hip fracture. COMPARISON: 11/25/2023. TECHNIQUE: 2 intraoperative spot films were obtained. FINDINGS: Intraoperative spot films demonstrating placement of a right femoral intramedullary kedar and excretio n screws through the right femoral neck. There is near anatomic alignment. There is no hip dislocatio n. IMPRESSION: Open reduction and internal fixation of a right hip fracture. There is near anatomic alignment.
--- NOTE | 2023-11-27 15:37 | FL ---
Fluoroscopic guidance operating room. HISTORY: Open reduction internal fixation of a right hip fracture. 34 seconds of fluoroscopy was provided in the operating room for open reduction internal fixation of right hip fracture.
[2023-11-27] MEDS ORDERED: NALOXONE 0.4 MG/ML 1 ML VIAL IV PRN (16:03)
[2023-11-27] MEDS ORDERED: MAGNESIUM HYDROXIDE 2,400 MG/30 ML CUP PO PRN (16:03)
[2023-11-27] MEDS ORDERED: diazePAM 5 MG TAB PO PRN (16:03)
--- NOTE | 2023-11-27 16:08 | XR ---
Right hip Limited. HISTORY: Operative reduction internal fixation of a right intertrochanteric fracture. TECHNIQUE: Single portable view of the right hip was obtained. FINDINGS: There is been open reduction internal fixation of an intertrochanteric fracture of the right hip. The re is an intramedullary kedar in the proximal femur and transfemoral neck screws. There is near anatomi c alignment. There are soft tissue emma indicating recent surgery. IMPRESSION: Open reduction internal fixation of an intertrochanteric fracture of the right hip. There is near luz tomic alignment.
[2023-11-27] MEDS: ASPIRIN 81 MG PO SCH (21:42)
[2023-11-27] MEDS: SENNOSIDES-DOCUSATE SODIUM 1 EACH TAB PO SCH (21:42)
[2023-11-28] MEDS: CLOPIDOGREL 75 MG TAB PO SCH (08:55)
[2023-11-28] MEDS: HYDROcodone/APAP 5-325MG 1 EACH TAB PO PRN ×2 (08:58→15:12)
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
--- NOTE | 2023-11-28 09:50 | P.PN ---
Subjective Progress Note Date: 11/28/23 Principal diagnosis: Status post right hip IT nail This is a 77 year-old male post right hip IT nail. This is post-op day 1. The patient was evaluated at the bedside today. The patient denies nausea, vomiting, abdominal pain, shortness of breath, and chest pain this morning. He states his pain is controlled at this time. The patient has not been up with physical therapy. Objective - Vital Signs Vital signs: Vital Signs Temp 98.2 F 11/28/23 07:18 Pulse 56 L 11/28/23 07:18 Resp 16 11/28/23 07:18 BP 94/59 11/28/23 07:18 Pulse Ox 92 L 11/28/23 02:00 FiO2 Intake & Output 11/27/23 11/28/23 11/28/23 18:59 06:59 18:59 Intake Total 1650 Output Total 300 375 Balance 1350 -375 Weight 104.326 kg Intake: IV 1650 Output: Urine 200 375 Estimated Blood Loss 100 Other: Voiding Method Urinal Diaper - Exam The patient does not appear in acute distress. Alert and orientated x3. Dressi ngs are clean dry and intact. Incision appears fine with no erythema or active drainage. Calf is soft and nontender. Good foot and ankle motion without difficulty. Sensation and circulatory status is intact. - Labs CBC & Chem 7: 11/27/23 05:13 11/27/23 05:13 Labs: Abnormal Lab Results - Last 24 Hours (Table) 11/27/23 11/27/23 Range/Units 05:13 05:13 RBC 3.64 L (4.40-5.60) X 10*6/uL Hgb 11.2 L (13.0-17.0) g/dL Hct 34.4 L (39.6-50.0) % Immature Gran # 0.07 H (0.00-0.04) X 10*3/uL Lymphocytes # 0.86 L (0.90-5.00) X 10*3/uL BUN/Creatinine Ratio 20.33 H (12.00-20.00) Ratio Calcium 8.3 L (8.7-10.3) mg/dL Total Protein 6.0 L (6.2-8.2) g/dL Albumin 3.5 L (3.8-4.9) g/dL Albumin/Globulin Ratio 1.40 L (1.60-3.17) Ratio Assessment and Plan (1) Fall Current Visit: Yes Status: Acute Code(s): W19.XXXA - UNSPECIFIED FALL, INITIAL ENCOUNTER SNOMED Code(s): 7798055 (2) Status post hip surgery Current Visit: Yes Status: Acute Code(s): Z98.890 - OTHER SPECIFIED POSTPROCEDURAL STATES SNOMED Code(s): 642069679 (3) Subtrochanteric fracture of hip Current Visit: Yes Status: Acute Code(s): S72.23XA - DISPLACED SUBTROCHANTERIC FRACTURE OF UNSP FEMUR, INIT SNOMED Code(s): 715495552 Plan: 1. Continue pain control 2. Anticoagulation with Aspirin 3. Start physical therapy and ambulation, non-weightbearing on the right leg 4. Anticipate discharge to skilled rehab vs. home depending on how his does with PT
[2023-11-28 10:24] LABS: Basophils # (A) 0.01 X 10*3/uL (0.00-0.10); Basophils % (A) 0.1 %; Eosinophils # (A) 0 X 10*3/uL (0.04-0.35); Eosinophils % (A) 0 %; HGB 8.8 g/dL (13.0-17.0); Lymphocytes # (A) 0.57 X 10*3/uL (0.90-5.00); Lymphocytes % (A) 7.4 %; MCH 30.4 pg (27.0-32.0); MCHC 32.6 g/dL (32.0-37.0); MCV 93.4 FL (80.0-97.0); Mean Platelet Volume 9.3 FL (9.5-12.2); Monocytes # (A) 0.64 X 10*3/uL (0.20-1.00); Monocytes % (A) 8.3 %; NRBC Per 100 WBC 0 X 10*3/uL (0.00-0.01); Neutrophils % (A) 83.8 %; Platelet Count 186 X 10*3/uL (140-440); RBC 2.89 X 10*6/uL (4.40-5.60); RDW 12.7 % (11.5-14.5); WBC 7.75 X 10*3/uL (4.50-10.00)
--- NOTE | 2023-11-29 08:59 | P.PN ---
Subjective Progress Note Date: 11/29/23 This is a 77-year-old male who is status post closed reduction and intramedullary nailing of the right femur. This is postoperative day #2 and patient is seen and evaluated at bedside today. Patient does admit to pain in the right thigh, but otherwise he denies any new complaints today. Per physical therapy, the patient would benefit from inpatient rehab. Objective - Vital Signs Vital signs: Vital Signs Temp 98.7 F 11/29/23 07:20 Pulse 51 L 11/29/23 07:20 Resp 16 11/29/23 07:20 BP 91/53 11/29/23 07:20 Pulse Ox 95 11/29/23 07:20 FiO2 Intake & Output 11/28/23 11/29/23 11/29/23 18:59 06:59 18:59 Output Total 300 Balance -300 Output: Urine 300 Other: Voiding Method Indwelling Catheter Indwelling Catheter - Exam Vital signs are stable. Patient is in no acute distress and is alert and oriented 3. Calf is soft and nontender to palpation. Dressing is clean, dry, and intact. Patient has full foot and ankle motion without pain or difficulty. Sensation intact. Neurovascular status and circulatory status are intact. - Labs CBC & Chem 7: 11/28/23 05:44 11/27/23 05:13 Labs: Abnormal Lab Results - Last 24 Hours (Table) 11/28/23 Range/Units 05:44 RBC 2.89 L (4.40-5.60) X 10*6/uL Hgb 8.8 L (13.0-17.0) g/dL Hct 27.0 L (39.6-50.0) % MPV 9.3 L (9.5-12.2) FL Lymphocytes # 0.57 L (0.90-5.00) X 10*3/uL Eosinophils # 0 L (0.04-0.35) X 10*3/uL Assessment and Plan (1) Subtrochanteric fracture of hip Current Visit: Yes Status: Acute Code(s): S72.23XA - DISPLACED SUBTROCHANTERIC FRACTURE OF UNSP FEMUR, INIT SNOMED Code(s): 242823139 (2) Closed right hip fracture Current Visit: Yes Status: Acute Code(s): S72.001A - FRACTURE OF UNSP PART OF NECK OF RIGHT FEMUR, INIT SNOMED Code(s): 517466873 Plan: Continue routine postop care and pain control. Continue anticoagulation. Nonweightbearing to the right lower extremity. Leave dressing in place for 7 days. Appreciate input from internal medicine. Anticipate discharge to ECF in the next 24-48 hours.
[2023-11-29 09:08] LABS: ALT 10 U/L (10-49); AST 31 U/L (14-35); Albumin 3.1 g/dL (3.8-4.9); Albumin/Globulin Ratio 1.35 Ratio (1.60-3.17); Alkaline Phosphatase 55 U/L (41-126); BUN/Creat Ratio 24.83 Ratio (12.00-20.00); Blood Urea Nitrogen 29.8 mg/dL (9.0-27.0); Carbon Dioxide 27.4 mmol/L (21.6-31.8); Chloride 101 mmol/L (96-109); Globulin 2.3 g/dL (1.6-3.3); Glucose 98 mg/dL (70-110); Potassium 4.1 mmol/L (3.5-5.5); Sodium 135 mmol/L (135-145); Total Bilirubin 0.4 mg/dL (0.3-1.2); Total Protein 5.4 g/dL (6.2-8.2)
[2023-11-29 09:54] LABS: Basophils # (A) 0.02 X 10*3/uL (0.00-0.10); Basophils % (A) 0.3 %; Eosinophils # (A) 0.32 X 10*3/uL (0.04-0.35); Eosinophils % (A) 4.4 %; HCT 27.3 % (39.6-50.0); HGB 8.8 g/dL (13.0-17.0); Lymphocytes # (A) 1.13 X 10*3/uL (0.90-5.00); Lymphocytes % (A) 15.6 %; MCH 30.7 pg (27.0-32.0); MCHC 32.2 g/dL (32.0-37.0); MCV 95.1 FL (80.0-97.0); Mean Platelet Volume 9.4 FL (9.5-12.2); Monocytes # (A) 0.62 X 10*3/uL (0.20-1.00); Monocytes % (A) 8.6 %; NRBC Per 100 WBC 0 X 10*3/uL (0.00-0.01); Neutrophils # (A) 5.12 X 10*3/uL (1.80-7.70); Neutrophils % (A) 70.7 %; Platelet Count 187 X 10*3/uL (140-440); RBC 2.87 X 10*6/uL (4.40-5.60); RDW 12.8 % (11.5-14.5); WBC 7.24 X 10*3/uL (4.50-10.00)
[2023-11-29] MEDS ORDERED: ZINC OXIDE PASTE (Z-GUARD) 1 APPLIC TOPICAL PRN (14:59)
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
[2023-11-30 08:28] LABS: Basophils # (A) 0.01 X 10*3/uL (0.00-0.10); Basophils % (A) 0.2 %; Eosinophils # (A) 0.25 X 10*3/uL (0.04-0.35); Eosinophils % (A) 4.3 %; HCT 26.8 % (39.6-50.0); HGB 8.8 g/dL (13.0-17.0); Lymphocytes % (A) 17.3 %; MCH 31.1 pg (27.0-32.0); MCHC 32.8 g/dL (32.0-37.0); MCV 94.7 FL (80.0-97.0); Mean Platelet Volume 9.1 FL (9.5-12.2); Monocytes # (A) 0.54 X 10*3/uL (0.20-1.00); Monocytes % (A) 9.3 %; NRBC Per 100 WBC 0 X 10*3/uL (0.00-0.01); Neutrophils # (A) 3.96 X 10*3/uL (1.80-7.70); Neutrophils % (A) 68.6 %; Platelet Count 208 X 10*3/uL (140-440); RBC 2.83 X 10*6/uL (4.40-5.60); RDW 13.1 % (11.5-14.5); WBC 5.78 X 10*3/uL (4.50-10.00)
[2023-11-30 08:42] LABS: ALT 12 U/L (10-49); AST 28 U/L (14-35); Albumin 3.1 g/dL (3.8-4.9); Albumin/Globulin Ratio 1.29 Ratio (1.60-3.17); Alkaline Phosphatase 51 U/L (41-126); BUN/Creat Ratio 25.11 Ratio (12.00-20.00); Blood Urea Nitrogen 22.6 mg/dL (9.0-27.0); Calcium 8.2 mg/dL (8.7-10.3); Carbon Dioxide 26.8 mmol/L (21.6-31.8); Chloride 101 mmol/L (96-109); Globulin 2.4 g/dL (1.6-3.3); Glucose 94 mg/dL (70-110); Sodium 136 mmol/L (135-145); Total Bilirubin 0.5 mg/dL (0.3-1.2); Total Protein 5.5 g/dL (6.2-8.2)
--- NOTE | 2023-11-30 13:17 | P.DS ---
Providers Date of admission: 11/25/23 18:22 Expected date of discharge: 11/30/23 Attending physician: Nick Dominique Consults: 11/25/23 18:21 Consult Physician Urgent Consulting Provider: Kristine Pena Consult Reason/Comments: Medical management and clearance for surgery Do you want consulting provider notified?: Yes Primary care physician: Kristine Pena - Discharge Diagnosis(es) (1) Subtrochanteric fracture of hip Current Visit: Yes Status: Acute (2) Closed right hip fracture Current Visit: Yes Status: Acute Hospital Course: This is a 77-year-old male who sustained a fracture of his right hip after a fall at home on 11/25/2023. The patient presented for evaluation in the emergency room. X-rays revealed a comminuted subtrochanteric fracture of the right femur. After discussion and consideration patient elects to proceed with closed reduction and intramedullary nailing of the right femur. The patient is seen preoperatively by Dr. Dominique and medically cleared for surgery by internal medicine and cardiology. Patient is admitted to [facility] on 11/25/2023 and closed reduction and intramedullary nailing of the right femur is performed on 11/27/2023. The procedure is performed without complication or sequelae. The patient is doing well postoperatively. Labs and vital signs are stable on day of discharge. On day of discharge patient's hip incision is healing well. There is minimal erythema. There is no new drainage noted at this time. There is minimal soft tissue swelling to the hip and thigh. Patient has full foot and ankle motion without difficulty or pain. Calf is soft and nontender to palpation. Neurovascular status to the right lower extremity is intact. Patient is discharged to rehab in good condition. Please see med rec for accurate list of home medications. Plan - Discharge Summary Discharge Rx Participant: Yes New Discharge Prescriptions: New HYDROcodone/APAP 5-325MG [[place] 5-325] 1 - 2 tab PO Q6HR PRN #32 tab PRN Reason: Pain Aspirin [Adult Low Dose Aspirin EC] 81 mg PO BID 30 Days #60 tab Sennosides [Senokot] 2 tab PO DAILY PRN #60 tablet PRN Reason: Constipation No Action Lisinopril-Hctz 20-12.5 mg [Zestoretic 20-12.5] 1 tab PO DAILY Clopidogrel [Plavix] 75 mg PO DAILY Discharge Medication List Clopidogrel [Plavix] 75 mg PO DAILY 11/25/23 [History] Lisinopril-Hctz 20-12.5 mg [Zestoretic 20-12.5] 1 tab PO DAILY 11/25/23 [History] Aspirin [Adult Low Dose Aspirin EC] 81 mg PO BID 30 Days #60 tab 11/30/23 [Rx] HYDROcodone/APAP 5-325MG [[place] 5-325] 1 - 2 tab PO Q6HR PRN #32 tab 11/30/23 [Rx] Sennosides [Senokot] 2 tab PO DAILY PRN #60 tablet 11/30/23 [Rx] Follow up Appointment(s)/Referral(s): None,Stated [REFERRING] - 1-2 days Nick Dominique DO [Doctor of Osteopathic Medicine] - 2 Weeks Activity/Diet/Wound Care/Special Instructions: Weightbearing to the right lower extremity with a walker. Leave dressing intact. Dressing may be removed by home care nurse or by patient in 7 days. Then change dressing twice daily until follow up. May shower with initial dressing intact and after removal. If dressing become saturated, please remove. Please resume Plavix and take aspirin 81mg twice daily for 30 days to prevent blood clots. Recommend use of compression stockings daily until follow up to help prevent swelling and blood clots. May remove at night before sleeping. Please follow-up with [facility] in 2 weeks and call with any questions or concerns, . Discharge Disposition: TRANSFER TO SNF/ECF
[2023-11-30 13:49] VITALS: BP 123/71; PULSE 78; RESP 16; TEMP 98.1
--- NOTE | 2023-11-30 15:58 | P.PN ---
Subjective Progress Note Date: 11/30/23 Chevy French, is a 77-year-old male who presented to [facility] emergency room after sustaining a fall from his stationary bike at home and complaining of right hip pain he was evaluated in the emergency room, and had evidence of comminuted right femoral subtrochanteric/intertrochanteric fracture with varus deformity, he is scheduled for orthopedic surgery today. Medical consultation was requested for clearance for surgery and for medical management while hospitalized. On presentation to emergency room, vital examination revealed a temperature of 98.2 pulse 51 respiration 16 blood pressure 122/53 pulse ox 98% on room air Laboratory data revealed a white blood count of 9.0 hemoglobin 13.2 platelet count 260, sodium 137 potassium 3.8 chloride 104 CO2 29 BUN [address] 27 ALT 14, chest x-ray was within normal limits Past medical history is significant for history of hypertension, history of hyperlipidemia, history of stroke in 2014 On review of systems patient is alert and oriented x 3 he denies any fever or chills no headache or dizziness no chest pain no shortness of breath no cough no nausea or vomiting no abdominal pain no diarrhea no urinary symptoms On 11/27/2023 patient was seen and examined on the medical floor he is alert and oriented x 3 in no apparent distress, there is no fever or chills no headache or dizziness no chest pain no shortness of breath no cough no nausea or vomiting no abdominal pain no diarrhea no urinary symptoms. EKG revealed sinus bradycardia with right bundle branch block and left anterior fascicular block, patient previously had a normal EKG in 2014. echocardiogram was done and revealed normal ejection fraction of 60 to 65%, at this time we are awaiting cardiology evaluation and clearance for surgery. On 11/28/2023 patient is alert and oriented x 3. Patient is status post closed reduction and trochanteric nailing of the right femur on 11/27/[address] Dominique. Patient reports improvement with pain. Patient also evaluated by cardiology services. At this time patient denies chest pain or shortness of breath. Patient denies nausea vomiting or diarrhea. Patient denies any urinary burning or frequency. Current vital signs temp 98.2, heart rate 68, respiratory rate 16, blood pressure 94/59 with a pulse ox of 92% on room air On 11/29/2023 patient was seen and examined on the medical floor he is alert and oriented x 3 in no apparent distress there is no fever or chills no headache or dizziness no chest pain no shortness of breath no cough no nausea or vomiting no abdominal pain no diarrhea and no urinary symptoms. Patient is doing well postoperatively. On 11/30/2023 patient was seen and examined on the medical floor he is alert and oriented x 3 in no distress there is no fever or chills no headache or dizziness no chest pain no shortness of breath no cough no nausea or vomiting no abdominal pain no diarrhea no urinary symptoms. Patient will be transferred to rehab in the next 1 to 2 days Objective - Vital Signs Vital signs: Vital Signs Temp 98.3 F 11/30/23 07:05 Pulse 63 11/30/23 07:05 Resp 15 11/30/23 07:05 BP 114/66 11/30/23 07:05 Pulse Ox 95 11/30/23 07:05 FiO2 Intake & Output 11/29/23 11/30/23 11/30/23 18:59 06:59 18:59 Output Total 1650 950 Balance -1650 -950 Output: Urine 1650 950 Other: Voiding Method Indwelling Catheter - Exam In general patient is alert and oriented x 3 in no distress HEENT head normocephalic and atraumatic Neck is supple no JVD no goiter no lymphadenopathy no carotid bruit Chest examination is clear to auscultation no crackles no wheezing Cardiac exam reveals regular heart sounds S1 and S2 no gallops no murmurs Abdomen is soft nontender no organomegaly with normal bowel sounds Extremity exam reveals no edema no cyanosis or clubbing Neurological examination reveals no gross focal deficits - Labs CBC & Chem 7: 11/30/23 05:16 11/30/23 05:16 Labs: Abnormal Lab Results - Last 24 Hours (Table) 11/30/23 11/30/23 Range/Units 05:16 05:16 RBC 2.83 L (4.40-5.60) X 10*6/uL Hgb 8.8 L (13.0-17.0) g/dL Hct 26.8 L (39.6-50.0) % MPV 9.1 L (9.5-12.2) FL BUN/Creatinine Ratio 25.11 H (12.00-20.00) Ratio Calcium 8.2 L (8.7-10.3) mg/dL Total Protein 5.5 L (6.2-8.2) g/dL Albumin 3.1 L (3.8-4.9) g/dL Albumin/Globulin Ratio 1.29 L (1.60-3.17) Ratio Assessment and Plan Plan: Fall with right hip fracture Abnormal EKG reveals bifascicular block, this is a new finding for patient Underlying history of hypertension Underlying history of hyperlipidemia Previous history of stroke Previous history of tobacco abuse At this time patient was seen and examined Home medications reviewed and reordered, will hold Plavix in anticipation for surgery I have asked for an echocardiogram, and a cardiology consult for surgical clearance due to abnormal EKG Will follow closely
== END 2023-11-30 16:32 | DRG 482 ==
LOC: EC 12:52 → 4SSUR 18:22
PROVIDERS: ADMIT Orthopaedic Surgery; ATTEND Orthopaedic Surgery
PROC: 0QH636Z Insertion of Intramedullary Internal Fixation Device into Right Upper Femur, Percutaneous Approach (ICD-10-PCS; 2023-11-27)
PROC: 0QS6XZZ Reposition Right Upper Femur, External Approach (ICD-10-PCS; principal; 2023-11-27 10:30)
DX: S72.21XA Displaced subtrochanteric fracture of right femur, initial encounter for closed fracture (principal); I10 Essential (primary) hypertension; I35.0 Nonrheumatic aortic (valve) stenosis; E78.5 Hyperlipidemia, unspecified; F17.210 Nicotine dependence, cigarettes, uncomplicated; W31.89XA Contact with other specified machinery, initial encounter; Y93.A1 Activity, exercise machines primarily for cardiorespiratory conditioning; Y92.009 Unspecified place in unspecified non-institutional (private) residence as the place of occurrence of the external cause; Z60.3 Acculturation difficulty; Z79.02 Long term (current) use of antithrombotics/antiplatelets; Z79.899 Other long term (current) drug therapy; Z86.73 Personal history of transient ischemic attack (TIA), and cerebral infarction without residual deficits
CPT/HCPCS: 36415; 71045; 73501; 73502; 80053; 81001; 85025; 85610; 85730; 93005; 93306; 96361; 96374; 99285

== ENCOUNTER 2023-12-15 10:17 | Inpatient (IN) | payer MEDICARE ==
[2023-12-15] MEDS: PANTOPRAZOLE 40 MG/10 ML VIAL IVP STA (10:38)
[2023-12-15] MEDS: SODIUM CHLORIDE 0.9% 1,000 ML IV STA ×3 (10:39→12:50)
--- NOTE | 2023-12-15 10:39 | ED ---
General Adult HPI - General Chief complaint: Abdominal Pain Stated complaint: abp, edema Time Seen by Provider: 12/15/23 10:28 Source: patient, RN/MD, EMS, RN notes reviewed, old records reviewed Mode of arrival: EMS Limitations: language barrier - History of Present Illness Initial comments: Patient is a 77-year-old male presenting to the emergency department with concern for not feeling well. Patient complains of abdominal discomfort. Patient also admits to feeling a little bit short of breath. Patient has reported edema and hyponatremia. Patient was in the hospital beginning of the month for hip fracture. - Related Data Home Medications Medication Instructions Recorded Confirmed Clopidogrel [Plavix] 75 mg PO DAILY 11/25/23 12/15/23 Lisinopril-Hctz 20-12.5 mg 1 tab PO DAILY 11/25/23 12/15/23 [Zestoretic 20-12.5] Lactose-Reduced Food [Ensure Plus] 1 can PO DAILY 12/15/23 12/15/23 Sennosides [Senokot] 17.2 tab PO DAILY PRN 12/15/23 12/15/23 Previous Rx's Medication Instructions Recorded Aspirin [Adult Low Dose Aspirin EC] 81 mg PO BID 30 Days #60 tab 11/30/23 HYDROcodone/APAP 5-325MG [[place] 1 - 2 tab PO Q6HR PRN #32 tab 11/30/23 5-325] Nicotine 21Mg/24Hr Patch [Habitrol] 1 patch TRANSDERM DAILY patch 11/30/23 Allergies Allergy/AdvReac Type Severity Reaction Status Date / Time No Known Allergies Allergy Verified 12/15/23 11:53 Review of Systems ROS Statement: Those systems with pertinent positive or pertinent negative responses have been documented in the HPI. ROS Other: All systems not noted in ROS Statement are negative. Constitutional: Denies: fever Eyes: Denies: eye pain ENT: Denies: ear pain Respiratory: Reports: as per HPI, dyspnea Cardiovascular: Denies: chest pain Endocrine: Denies: fatigue Gastrointestinal: Reports: as per HPI, abdominal pain Musculoskeletal: Denies: back pain Skin: Denies: rash Neurological: Denies: weakness Past Medical History Past Medical History: CVA/TIA, Hyperlipidemia, Hypertension History of Any Multi-Drug Resistant Organisms: None Reported Past Surgical History: No Surgical Hx Reported Past Psychological History: No Psychological Hx Reported Smoking Status: Current every day smoker Past Alcohol Use History: None Reported Past Drug Use History: None Reported General Exam Limitations: language barrier General appearance: alert, in no apparent distress Head exam: Present: atraumatic Eye exam: Present: normal appearance Neck exam: Present: normal inspection Respiratory exam: Present: rales Cardiovascular Exam: Present: regular rate, normal rhythm GI/Abdominal exam: Present: distended, tenderness (Mild diffuse) Extremities exam: Present: pedal edema. Absent: calf tenderness Neurological exam: Present: alert Psychiatric exam: Present: normal affect, normal mood Skin exam: Present: normal color Course Vital Signs 12/15/23 12/15/23 12/15/23 10:19 10:45 11:00 Temperature 98.7 F Pulse Rate 80 82 84 Respiratory 30 H 27 H 24 Rate Blood Pressure 80/53 94/52 76/43 O2 Sat by Pulse 97 97 95 Oximetry 12/15/23 12/15/23 12/15/23 11:15 11:30 11:45 Temperature Pulse Rate 79 83 81 Respiratory 32 H 31 H 28 H Rate Blood Pressure 95/46 84/52 92/44 O2 Sat by Pulse 97 95 95 Oximetry 12/15/23 12:00 Temperature Pulse Rate 78 Respiratory 29 H Rate Blood Pressure 97/47 O2 Sat by Pulse 89 L Oximetry EKG Findings - EKG Results: EKG: interpreted by ERMD ([place]. Right bundle branch block. Septal Q waves. Nonspecific ST-T.), sinus rhythm Medical Decision Making - Medical Decision Making Was pt. sent in by a medical professional or institution (, PA, DATA WAREHOUSING ARCHITECT, urgent care, hospital, or prison...) When possible be specific @ -Patient sent from prison Did you speak to anyone other than the patient for history (EMS, parent, family, police, friend...)? What history was obtained from this source @ -Son is present and provides additional history of previous prostate problem Did you review nursing and triage notes (agree or disagree)? Why? @ -I reviewed and agree with nursing and triage notes Were old charts reviewed (outside hosp., previous admission, EMS record, old EKG , old radiological studies, urgent care reports/EKG's, prison records)? Report findings @ -Previous admission Differential Diagnosis (chest pain, altered mental status, abdominal pain women, abdominal pain men, vaginal bleeding, weakness, fever, dyspnea, syncope, headache, dizziness, GI bleed, back pain, seizure, CVA, palpatations, mental health, musculoskeletal)? @ -Differential Abdominal Pain Men: Appendicitis, cholecystitis, diverticulosis, ischemic bowel, pancreatitis, hepatitis, UTI, gastroenteritis, AAA, incarcerated hernia, bowel obstruction, constipation, inflammatory bowel, hepatitis, peptic ulcer disease, splenic infarction, perforated viscus, testicular torsion, this is not meant to be an all-inclusive list EKG interpreted by me (3pts min.). @ -As above X-rays interpreted by me (1pt min.). @ -X-ray shows possible mild fluid CT interpreted by me (1pt min.). @ -CT abdomen pelvis shows dilated bladder and stomach U/S interpreted by me (1pt. min.). @ -None done What testing was considered but not performed or refused? (CT, X-rays, U/S, labs)? Why? @ -None What meds were considered but not given or refused? Why? @ -None Did you discuss the management of the patient with other professionals (professionals i.e. , PA, DATA WAREHOUSING ARCHITECT, lab, RT, psych nurse, health care social worker, foot doctor, teacher, gift officer, rn case manager)? Give summary @ -Case discussed with Dr. Pena who will admit his patient Was smoking cessation discussed for >3mins.? @ -No Was critical care preformed (if so, how long)? @ -No Were there social determinants of health that impacted care today? How? (Homelessness, low income, unemployed, alcoholism, drug addiction, transportation, low edu. Level, literacy, decrease access to med. care, [facility], rehab)? @ -No Was there de-escalation of care discussed even if they declined (Discuss DNR or withdrawal of care, Hospice)? DNR status @ -No What co-morbidities impacted this encounter? (DM, HTN, Smoking, COPD, CAD, Cancer, CVA, ARF, Chemo, Hep., AIDS, mental health diagnosis, sleep apnea, morbid obesity)? @ -Recent hip fracture and surgical repair Was patient admitted / discharged? Hospital course, mention meds given and route, prescriptions, significant lab abnormalities, going to OR and other pertinent info. @ -Patient presents with abdominal discomfort and some dyspnea. Patient has RAFAELA and hyponatremia with urinary retention and ileus versus partial small bowel obstruction. Patient will be admitted with nephrology and surgical consult. Admission orders written. Undiagnosed new problem with uncertain prognosis? @ -No Drug Therapy requiring intensive monitoring for toxicity (Heparin, Nitro, Insulin, Cardizem)? @ -No Were any procedures done? @ -No Diagnosis/symptom? @ -Acute kidney injury, hyponatremia, ileus Acute, or Chronic, or Acute on Chronic? @ -Acute, acute, acute Uncomplicated (without systemic symptoms) or Complicated (systemic symptoms)? @ -Default Side effects of treatment? @ -No Exacerbation, Progression, or Severe Exacerbation? @ -No Poses a threat to life or bodily function? How? (Chest pain, [place], [place], pneumonia, PE, COPD, DKA, ARF, appy, cholecystitis, CVA, Diverticulitis, Homicidal, Suicidal, threat to staff... and all critical care pts) @ -Threat to renal function - Lab Data Result diagrams: 12/15/23 10:41 12/15/23 11:21 Lab Results 12/15/23 12/15/23 12/15/23 Range/Units 10:41 11:21 11:21 WBC 14.5 H (3.8-10.6) k/uL RBC 3.19 L (4.30-5.90) m/uL Hgb 10.1 L (13.0-17.5) gm/dL Hct 30.3 L (39.0-53.0) % MCV 95.3 (80.0-100.0) fL MCH 31.6 (25.0-35.0) pg MCHC 33.2 (31.0-37.0) g/dL RDW 12.9 (11.5-15.5) % Plt Count 511 H (150-450) k/uL MPV 6.9 Neutrophils % 93 % Lymphocytes % 2 % Monocytes % 4 % Eosinophils % 1 % Basophils % 0 % Neutrophils # 13.5 H (1.3-7.7) k/uL Lymphocytes # 0.2 L (1.0-4.8) k/uL Monocytes # 0.5 (0-1.0) k/uL Eosinophils # 0.2 (0-0.7) k/uL Basophils # 0.0 (0-0.2) k/uL PT 9.7 L (10.0-12.5) sec INR 0.9 (<1.2) APTT 25.2 (22.0-30.0) sec Sodium (137-145) mmol/L Potassium (3.5-5.1) mmol/L Chloride (98-107) mmol/L Carbon Dioxide (22-30) mmol/L Anion Gap mmol/L BUN (9-20) mg/dL Creatinine (0.66-1.25) mg/dL Est GFR (CKD-EPI)AfAm (>60 ml/min/1.73 sqM) Est GFR (CKD-EPI)NonAf (>60 ml/min/1.73 sqM) Glucose (74-99) mg/dL Calcium (8.4-10.2) mg/dL Total Bilirubin (0.2-1.3) mg/dL AST (17-59) U/L ALT (4-49) U/L Alkaline Phosphatase (38-126) U/L Troponin I <0.012 (0.000-0.034) ng/mL NT-Pro-B Natriuret Pep pg/mL Total Protein (6.3-8.2) g/dL Albumin (3.5-5.0) g/dL Amylase (30-110) U/L Lipase (23-300) U/L // Range/Units 11:21 WBC (3.8-10.6) k/uL RBC (4.30-5.90) m/uL Hgb (13.0-17.5) gm/dL Hct (39.0-53.0) % MCV (80.0-100.0) fL MCH (25.0-35.0) pg MCHC (31.0-37.0) g/dL RDW (11.5-15.5) % Plt Count (150-450) k/uL MPV Neutrophils % % Lymphocytes % % Monocytes % % Eosinophils % % Basophils % % Neutrophils # (1.3-7.7) k/uL Lymphocytes # (1.0-4.8) k/uL Monocytes # (0-1.0) k/uL Eosinophils # (0-0.7) k/uL Basophils # (0-0.2) k/uL PT (10.0-12.5) sec INR (<1.2) APTT (22.0-30.0) sec Sodium 122 L (137-145) mmol/L Potassium 6.0 H (3.5-5.1) mmol/L Chloride 79 L (98-107) mmol/L Carbon Dioxide 32 H (22-30) mmol/L Anion Gap 11 mmol/L BUN 83 H (9-20) mg/dL Creatinine 4.23 H (0.66-1.25) mg/dL Est GFR (CKD-EPI)AfAm 15 (>60 ml/min/1.73 sqM) Est GFR (CKD-EPI)NonAf 13 (>60 ml/min/1.73 sqM) Glucose 137 H (74-99) mg/dL Calcium 8.2 L (8.4-10.2) mg/dL Total Bilirubin 0.7 (0.2-1.3) mg/dL AST 35 (17-59) U/L ALT 18 (4-49) U/L Alkaline Phosphatase 106 (38-126) U/L Troponin I (0.000-0.034) ng/mL NT-Pro-B Natriuret Pep 468 pg/mL Total Protein 6.4 (6.3-8.2) g/dL Albumin 3.4 L (3.5-5.0) g/dL Amylase 76 (30-110) U/L Lipase 125 (23-300) U/L Disposition Clinical Impression: Acute kidney injury, Hyponatremia, Urinary retention, Ileus Disposition: ADMITTED IP TO THIS [facility] Condition: Serious Is patient prescribed a controlled substance at d/c from ED?: No Referrals: Kristine Pena MD [Primary Care Provider] - 1-2 days Time of Disposition: 12:39
[2023-12-15 10:50] LABS: Basophils % (A) 0 %; Eosinophils # (A) 0.2 k/uL (0-0.7); Eosinophils % (A) 1 %; HCT 30.3 % (39.0-53.0); HGB 10.1 gm/dL (13.0-17.5); Lymphocytes # (A) 0.2 k/uL (1.0-4.8); Lymphocytes % (A) 2 %; MCH 31.6 pg (25.0-35.0); MCHC 33.2 g/dL (31.0-37.0); MCV 95.3 fL (80.0-100.0); Mean Platelet Volume 6.9; Monocytes # (A) 0.5 k/uL (0-1.0); Monocytes % (A) 4 %; Neutrophils # (A) 13.5 k/uL (1.3-7.7); Neutrophils % (A) 93 %; Platelet Count 511 k/uL (150-450); RBC 3.19 m/uL (4.30-5.90); RDW 12.9 % (11.5-15.5); WBC 14.5 k/uL (3.8-10.6)
--- NOTE | 2023-12-15 11:04 | XR ---
EXAMINATION TYPE: XR chest 1V portable DATE OF EXAM: 12/15/2023 10:59 AM COMPARISON: Chest radiographs from 11/25/2023 TECHNIQUE: XR chest 1V portable Portable AP radiograph of the chest. CLINICAL INDICATION:Male, 77 years old with history of jose; FINDINGS: Patient is rotated which was evaluation. Lungs/Pleura: There is no evidence of pleural effusion, focal consolidation, or pneumothorax. Low dmitriy ng volumes with general hazy appearance. Heart/mediastinum: Cardiomediastinal silhouette is enlarged. Musculoskeletal: No acute osseous pathology. IMPRESSION: Low lung volumes with a generalized hazy appearance which could represent atelectasis versus pulmonar y edema correlate with serum BNP. [facility], , 12/15/2023 11:02 AM
[2023-12-15 11:48] LABS: INR 0.9 (<1.2); Partial Thromboplastin Time 25.2 sec (22.0-30.0); Prothrombin Time 9.7 sec (10.0-12.5)
[2023-12-15 11:50] LABS: ALT 18 U/L (4-49); AST 35 U/L (17-59); African American GFR (CKD) 15 (>60 ml/min/1.73 sqM); Albumin 3.4 g/dL (3.5-5.0); Alkaline Phosphatase 106 U/L (38-126); Amylase 76 U/L (30-110); Anion Gap 11 mmol/L; Blood Urea Nitrogen 83 mg/dL (9-20); Calcium 8.2 mg/dL (8.4-10.2); Carbon Dioxide 32 mmol/L (22-30); Chloride 79 mmol/L (98-107); Glucose 137 mg/dL (74-99); Lipase 125 U/L (23-300); Non-African American GFR(CKD) 13 (>60 ml/min/1.73 sqM); Sodium 122 mmol/L (137-145); Total Bilirubin 0.7 mg/dL (0.2-1.3); Total Protein 6.4 g/dL (6.3-8.2)
[2023-12-15 11:58] LABS: NT-Pro-B-Type Natriuretic Pept 468 pg/mL
--- NOTE | 2023-12-15 12:18 | CT ---
EXAMINATION TYPE: CT abdomen pelvis wo con CT DLP: 1152.1 mGycm, Automated exposure control for dose reduction was used. DATE OF EXAM: 12/15/2023 11:59 AM COMPARISON: No direct comparisons CLINICAL INDICATION:Male, 77 years old with history of abp; Abdominal pain TECHNIQUE: Standard CT of the abdomen and pelvis without IV or oral contrast. Lack of IV or oral co ntrast limits evaluation of solid and hollow organ viscera. Coronal and sagittal reformats were perfo rmed. FINDINGS: LOWER CHEST: Small bilateral pleural effusions with associated atelectasis. Left greater than right. ABDOMEN LIVER: Unremarkable noncontrast appearance. GALLBLADDER AND BILE DUCTS: Unremarkable noncontrast appearance. PANCREAS: Unremarkable noncontrast appearance. SPLEEN: Unremarkable noncontrast appearance. ADRENAL GLANDS: Unremarkable noncontrast appearance.. KIDNEYS AND URETERS: Mild bilateral hydroureteronephrosis without obstructing calculus. No renal calc bronwyn identified. PELVIS BLADDER: Markedly distended. REPRODUCTIVE: Prominent prostate gland measuring up to 4.8 cm. ABDOMEN & PELVIS STOMACH AND BOWEL: Fluid-filled esophagus with dilated gas and fluid-filled stomach. Dilated small matt wel with air-fluid levels. Distal small bowel appears collapsed and no clear focal transition point i dentified. No focal bowel wall thickening or surrounding inflammatory changes. The small bowel measur es up to 4.3 cm. Gas and stool is present within the large bowel. The appendix is within normal limit s. Normal caliber large bowel. PERITONEUM: No evidence of pneumoperitoneum or free fluid. VASCULATURE: Moderate atherosclerotic calcifications are present throughout the abdominal aorta and i ts branches. No evidence of aortic aneurysm. MUSCULOSKELETAL: No acute osseous abnormalities. Post surgical changes from recent right proximal fem ur fixation with stranding and linear tracks of fluid. Multilevel degenerative disc disease of the vi sualized spine. LYMPH NODES: No gross evidence for lymphadenopathy. SOFT TISSUE/ABDOMINAL WALL: Mild anasarca. IMPRESSION: 1. Dilated small bowel, stomach, and visualized esophagus without clear focal transition point. Find ings suggest ileus versus partial small bowel obstruction. 2. Significantly distended urinary bladder with bilateral hydroureteronephrosis. No obstructing calcu boaz. Prominent prostate gland. Recommend Rich catheter placement. 3. Postsurgical changes from recent right proximal femur fixation. 4. Small bilateral pleural effusions with associated atelectasis. [facility]: [id number], 12/15/2023 12:16 PM
[2023-12-15] MEDS ORDERED: NALOXONE 0.4 MG/ML 1 ML VIAL IV PRN (12:40)
[2023-12-15] MEDS: SODIUM CHLORIDE 0.9% 1,000 ML IV SCH ×2 (12:50→16:20)
--- NOTE | 2023-12-15 13:36 | P.NPCON ---
History of Present Illness - Reason for Consult acute renal failure, hyponatremia - History of Present Illness Reason for consultation: Acute kidney injury, electrolyte imbalance. History of present illness: Patient is a 77-year-old male seen in renal consultation for acute kidney injury, electrolyte imbalance. Patient sodium level was 122 on admission potassium level 6 and creatinine 4.23. Patient's creatinine was 0.9 dated November 30, 2023 and 1.91 yesterday. Patient is a poor historian but his son is present at bedside. Patient came to the hospital due to abdominal pain. He was also noted to have urinary retention with bilateral hydronephrosis. He currently has a Rich catheter and so far 1.1 L of urine has been obtained shortly after Rich catheter being placed. He is also receiving a liter bolus of normal saline. Surgery has been consulted. He was taking lisinopril and hydrochlorothiazide outpatient which are currently held. Patient's recent echocardiogram showed moderate aortic stenosis and tricuspid regurgitation. Patient also sustained a fall about 2 weeks ago from a stationary bike and sustained right hip fracture for which she underwent surgery. Denies use of nonsteroidals. No history of diabetes. No history of coronary artery disease. Vital signs are stable. Blood pressure on the lower side. General: HEENT: Head exam is unremarkable. On nasal cannula. LUNGS: Scattered rhonchi. HEART: Rate and Rhythm are regular. ABDOMEN: Distention noted. EXTREMITITES: 1+ edema right lower extremity. No edema left lower extremity. Past Medical History Past Medical History: CVA/TIA, Hyperlipidemia, Hypertension History of Any Multi-Drug Resistant Organisms: None Reported Past Surgical History: No Surgical Hx Reported Past Psychological History: No Psychological Hx Reported Smoking Status: Current every day smoker Past Alcohol Use History: None Reported Past Drug Use History: None Reported Medications and Allergies Home Medications Medication Instructions Recorded Confirmed Type Clopidogrel [Plavix] 75 mg PO DAILY 11/25/23 12/15/23 History Lisinopril-Hctz 20-12.5 mg 1 tab PO DAILY 11/25/23 12/15/23 History [Zestoretic 20-12.5] Aspirin [Adult Low Dose Aspirin EC] 81 mg PO BID 30 Days #60 tab 11/30/23 Rx HYDROcodone/APAP 5-325MG [[place] 1 - 2 tab PO Q6HR PRN #32 tab 11/30/23 12/15/23 Rx 5-325] Nicotine 21Mg/24Hr Patch [Habitrol] 1 patch TRANSDERM DAILY patch 11/30/23 12/15/23 Rx Lactose-Reduced Food [Ensure Plus] 1 can PO DAILY 12/15/23 12/15/23 History Sennosides [Senokot] 17.2 tab PO DAILY PRN 12/15/23 12/15/23 History Allergies Allergy/AdvReac Type Severity Reaction Status Date / Time No Known Allergies Allergy Verified 12/15/23 11:53 Physical Exam Vitals: Vital Signs Temp Pulse Resp BP Pulse Ox 12/15/23 12:50 78 25 H 88/58 93 L 12/15/23 12:00 78 29 H 97/47 89 L 12/15/23 11:45 81 28 H 92/44 95 12/15/23 11:30 83 31 H 84/52 95 12/15/23 11:15 79 32 H 95/46 97 12/15/23 11:00 84 24 76/43 95 12/15/23 10:45 82 27 H 94/52 97 12/15/23 10:19 98.7 F 80 30 H 80/53 97 Intake and Output 12/14/23 12/15/23 12/15/23 22:59 06:59 14:59 Output Total 3000 Balance -3000 Output: Urine 3000 Other: Weight 90.718 kg Results - Lab Results Most recent lab results Calcium 8.2 mg/dL (8.4-10.2) L 12/15/23 11:21 12/15/23 10:41 12/15/23 11:21 Assessment and Plan Plan: Assessment: 1. Acute kidney injury secondary to ATN secondary to hypotension and urinary retention. Creatinine 4.23 on admission. It was 1.91 a day prior to admission and 0.9 dated November 30, 2023. 2. Bilateral hydronephrosis and urinary retention. Currently has Rich catheter. 3. Hyponatremia secondary to acute kidney injury and urinary retention. Further worsen with the use of thiazide diuretic outpatient. 4. Abdominal pain. Ileus versus bowel obstruction. Surgery consulted. 5. Chronic diastolic CHF and moderate aortic stenosis and tricuspid regurgitation. 6. Hyperkalemia secondary to acute kidney injury, urinary retention and use of SELINA inhibitor. 7. Recent hip fracture status post surgical repair. Plan: Decrease rate of normal saline to 50 cc an hour. Maintain Rich catheter. Urology consulted for the hydronephrosis. Repeat BMP at 3 PM. Await surgery recs. Avoid nephrotoxins. Hold off on antihypertensives. Continue to monitor renal function and urine output. Check a.m. cortisol level. Thank you for the consultation. I will continue to follow the patient with you during his hospital stay.
--- NOTE | 2023-12-15 14:23 | P.GSCN ---
History of Present Illness Consult date: 12/15/23 History of present illness: CHIEF COMPLAINT: Not feeling well HISTORY OF PRESENT ILLNESS: This is a 77-year-old male who presents the hospital with complaints of not feeling well. He had currently been at [facility] for rehab. Patient had recent been in the hospital 2 weeks ago after a fall with right hip fracture and had undergone surgery. Patient presents the hospital with not feeling well vomiting and abdominal pain and distention. Patient is a poor historian. Most history was obtained from patient's son. Patient had been not able to urinate. He had been vomiting yesterday. And complaining of abdominal pain. Abdomen is distended. Patient reports his last bowel movement was 2 days ago and he is no longer having any flatus. He does have prior abdominal surgery history includes an inguinal hernia repair and prostate surgery. Patient was found to have evidence of urinary retention and had Rich catheter placed with 1 L of urine removed. Patient is also been hypotensive and received fluid bolus. He is found to have acute kidney injury with creatinine of 4 and hyponatremic. Patient had a CT scan abdomen pelvis which reported dilated small bowel, stomach and visualized esophagus without clear focal transition point. Findings suggest ileus versus partial small bowel obstruction. Patient has a prior history of 2 strokes and on Plavix. Last dose of Plavix was yesterday. PAST MEDICAL HISTORY: CVA, lipidemia, hypertension, enlarged prostate, chronic diastolic CHF and moderate aortic stenosis and tricuspid regurgitation PAST SURGICAL HISTORY: inguinal hernia repair, prostate surgery MEDICATIONS: See list. ALLERGIES: See list. SOCIAL HISTORY: No illicit drug use. Daily tobacco use REVIEW OF SYSTEMS: CONSTITUTIONAL: Denies fever or chills. HEENT: Denies blurred vision, vision changes, or eye pain. Denies hemoptysis ENDOCRINE: Denies heat or cold intolerance. CARDIOVASCULAR: Denies chest pain or pressure. RESPIRATORY: No shortness of breath. GASTROINTESTINAL: Denies abdominal pain. Denies nausea or vomiting. NEURO: Denies history of seizures. PSYCH: No depression or suicidal ideation HEMATOLOGIC: Denies bleeding disorders. LYMPHATIC: The patient denies any lumps and bumps around the neck. GENITOURINARY: Denies any blood in urine or increased urinary frequency. MUSCULOSKELETAL: Denies myalgias. Denies joint swelling. Denies decreased range of motion beyond patients baseline. SKIN: Denies pruitis. Denies rash. PHYSICAL EXAM: VITAL SIGNS: Reviewed GENERAL: Well-developed in no acute distress. HEENT: No sclera icterus. Extraocular movements grossly intact. Moist buccal mucosa. Head is atraumatic, normocephalic. Hears conversational speech. No nasal drainage. NECK: Supple without lymphadenopathy. CHEST: Non-labored respirations and equal bilateral excursions. CARDIOVASCULAR: Palpable 2+ radial pulses. ABDOMEN: Distended. Diffuse tenderness to palpation tympanic MUSCULOSKELETAL: No clubbing or cyanosis. NEUROLOGIC: No focal or lateralizing signs. Cranial nerves II through XII grossly intact. PSYCH: Appropriate affect. Alert and oriented to person, place and time. SKIN: Well perfused. Good skin turgor. LABORATORY DATA: WBC 14.5 Hgb 10.1 platelets 511 Sodium 122 potassium 6.0 creatinine 4.23 Troponin negative LFTs normal lipase 125 IMAGING: CT scan abdomen pelvis reports dilated small bowel, stomach and visualized esophagus without clear focal transition point. Findings suggest ileus versus partial small bowel obstruction. Significantly distended urinary bladder with bilateral hydronephrosis. No obstructing calculus. Prominent prostate gland. Postsurgical changes from recent right proximal femur fixation. Small bilateral pleural effusions and associated atelectasis. ASSESSMENT: 1. Ileus versus partial small bowel obstruction with abdominal pain and abdominal distention 2. Urinary retention and bilateral hydronephrosis status post Rich catheter placement 3. Acute kidney injury 4. Hyponatremia 5. Hyperkalemia 6. 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 Recent hip fracture status postsurgical repair PLAN: -Place NG tube for decompression -Downgrade diet to n.p.o. -Placed Plavix on hold in case surgical intervention is required -Continue to monitor -Patient followed by nephrology for acute kidney injury, hyponatremia and fluid management -Urology on consult for bilateral hydronephrosis Thank you for this consultation Physician [employer] note has been reviewed by physician. Signing provider agrees with the documented findings, assessment, and plan of care. Past Medical History Past Medical History: CVA/TIA, Hyperlipidemia, Hypertension History of Any Multi-Drug Resistant Organisms: None Reported Past Surgical History: No Surgical Hx Reported Past Psychological History: No Psychological Hx Reported Smoking Status: Current every day smoker Past Alcohol Use History: None Reported Past Drug Use History: None Reported Medications and Allergies Home Medications Medication Instructions Recorded Confirmed Type Clopidogrel [Plavix] 75 mg PO DAILY 11/25/23 12/15/23 History Lisinopril-Hctz 20-12.5 mg 1 tab PO DAILY 11/25/23 12/15/23 History [Zestoretic 20-12.5] Aspirin [Adult Low Dose Aspirin EC] 81 mg PO BID 30 Days #60 tab 11/30/23 12/15/23 Rx HYDROcodone/APAP 5-325MG [Kent 1 - 2 tab PO Q6HR PRN #32 tab 11/30/23 12/15/23 Rx 5-325] Nicotine 21Mg/24Hr Patch [Habitrol] 1 patch TRANSDERM DAILY patch 11/30/23 12/15/23 Rx Lactose-Reduced Food [Ensure Plus] 1 can PO DAILY 12/15/23 12/15/23 History Sennosides [Senokot] 17.2 tab PO DAILY PRN 12/15/23 12/15/23 History Allergies Allergy/AdvReac Type Severity Reaction Status Date / Time No Known Allergies Allergy Verified 12/15/23 11:53 Surgical - Exam Vital Signs Temp Pulse Resp BP Pulse Ox 98.7 F 80 30 H 80/53 97 12/15/23 10:19 12/15/23 10:19 12/15/23 10:19 12/15/23 10:19 12/15/23 10:19 Results - Labs 12/15/23 10:41 12/15/23 11:21 Abnormal Lab Results - Last 24 Hours (Table) 12/15/23 12/15/23 12/15/23 Range/Units 10:41 11:21 11:21 WBC 14.5 H (3.8-10.6) k/uL RBC 3.19 L (4.30-5.90) m/uL Hgb 10.1 L (13.0-17.5) gm/dL Hct 30.3 L (39.0-53.0) % Plt Count 511 H (150-450) k/uL Neutrophils # 13.5 H (1.3-7.7) k/uL Lymphocytes # 0.2 L (1.0-4.8) k/uL PT 9.7 L (10.0-12.5) sec Sodium 122 L (137-145) mmol/L Potassium 6.0 H (3.5-5.1) mmol/L Chloride 79 L (98-107) mmol/L Carbon Dioxide 32 H (22-30) mmol/L BUN 83 H (9-20) mg/dL Creatinine 4.23 H (0.66-1.25) mg/dL Glucose 137 H (74-99) mg/dL Calcium 8.2 L (8.4-10.2) mg/dL Albumin 3.4 L (3.5-5.0) g/dL Diabetes panel 12/15/23 Range/Units 11:21 Sodium 122 L (137-145) mmol/L Potassium 6.0 H (3.5-5.1) mmol/L Chloride 79 L (98-107) mmol/L Carbon Dioxide 32 H (22-30) mmol/L BUN 83 H (9-20) mg/dL Creatinine 4.23 H (0.66-1.25) mg/dL Glucose 137 H (74-99) mg/dL Calcium 8.2 L (8.4-10.2) mg/dL AST 35 (17-59) U/L ALT 18 (4-49) U/L Alkaline Phosphatase 106 (38-126) U/L Total Protein 6.4 (6.3-8.2) g/dL Albumin 3.4 L (3.5-5.0) g/dL Calcium panel 12/15/23 Range/Units 11:21 Calcium 8.2 L (8.4-10.2) mg/dL Albumin 3.4 L (3.5-5.0) g/dL Pituitary panel 12/15/23 Range/Units 11:21 Sodium 122 L (137-145) mmol/L Potassium 6.0 H (3.5-5.1) mmol/L Chloride 79 L (98-107) mmol/L Carbon Dioxide 32 H (22-30) mmol/L BUN 83 H (9-20) mg/dL Creatinine 4.23 H (0.66-1.25) mg/dL Glucose 137 H (74-99) mg/dL Calcium 8.2 L (8.4-10.2) mg/dL Adrenal panel 12/15/23 Range/Units 11:21 Sodium 122 L (137-145) mmol/L Potassium 6.0 H (3.5-5.1) mmol/L Chloride 79 L (98-107) mmol/L Carbon Dioxide 32 H (22-30) mmol/L BUN 83 H (9-20) mg/dL Creatinine 4.23 H (0.66-1.25) mg/dL Glucose 137 H (74-99) mg/dL Calcium 8.2 L (8.4-10.2) mg/dL Total Bilirubin 0.7 (0.2-1.3) mg/dL AST 35 (17-59) U/L ALT 18 (4-49) U/L Alkaline Phosphatase 106 (38-126) U/L Total Protein 6.4 (6.3-8.2) g/dL Albumin 3.4 L (3.5-5.0) g/dL
--- NOTE | 2023-12-15 14:51 | XR ---
EXAMINATION TYPE: XR chest 1V portable DATE OF EXAM: 12/15/2023 2:44 PM COMPARISON: Chest radiographs from 12/15/2023 TECHNIQUE: XR chest 1V portable Portable AP radiograph of the chest. CLINICAL INDICATION:Male, 77 years old with history of NG tube placement; FINDINGS: Patient is rotated which limits evaluation. Lungs/Pleura: No evidence of focal consolidation or pneumothorax. Blunting of the costophrenic angles is present. Pulmonary vascularity: Mild pulmonary vascular congestion. Heart/mediastinum: Cardiomediastinal silhouette is enlarged and stable. Atherosclerotic calcificatio ns are seen in the aorta. Musculoskeletal: No acute osseous pathology. Other findings: None Lines/Tubes: Nasogastric tube with its distal tip and side-port projecting under the diaphragm and projecting over the gastric lumen. IMPRESSION: 1. NG tube in appropriate position. 2. Cardiomegaly, pulmonary vascular congestion and small bilateral pleural effusions. Correlate with BNP for congestive heart failure. [facility], , 12/15/2023 2:49 PM
[2023-12-15 15:32] LABS: African American GFR (CKD) 15 (>60 ml/min/1.73 sqM); Anion Gap 9 mmol/L; Blood Urea Nitrogen 83 mg/dL (9-20); Calcium 7.6 mg/dL (8.4-10.2); Carbon Dioxide 27 mmol/L (22-30); Chloride 85 mmol/L (98-107); Glucose 119 mg/dL (74-99); Non-African American GFR(CKD) 13 (>60 ml/min/1.73 sqM); Sodium 121 mmol/L (137-145)
[2023-12-15 15:40] LABS: Potassium 6.1 mmol/L (3.5-5.1)
[2023-12-15] MEDS: SODIUM CHLORIDE 0.9% 1,000 ML IV ONE ×3 (16:36→20:24)
[2023-12-15] MEDS: CALCIUM GLUCONATE IN NACL 1 GM in SALINE 1 100ML.BAG IVPB ONE (16:42)
--- NOTE | 2023-12-15 16:43 | P.HPIM ---
History of Present Illness H&P Date: 12/15/23 Chevy French, is a 77-year-old male who presented to [facility] emergency room due to abdominal pain and generalized weakness and hypotension. Patient was recently admitted to [facility] after sustaining a fall and having femur fracture he underwent surgery and was transferred [facility]. He was evaluated in the emergency room vital examination on presentation revealed a temperature of 98.7 pulse 80 respiration 30 blood pressure 80/53 pulse ox 97% on 5 L nasal cannula Laboratory data revealed a white blood count of 14.5 hemoglobin 10.1 platelet count 511 sodium 122 potassium 6.0 chloride 79 BUN 83 creatinine 4.23 Testing in the emergency room revealed chest x-ray revealed low lung volumes with generalized hazy appearance which could represent atelectasis versus pulmonary edema, CT scan of the abdomen revealed dilated small bowel loops and stomach without clear focal transition point, and significantly distended urinary bladder with bilateral hydronephrosis. Patient was admitted to medical floor for further evaluation and treatment Past Medical History Past Medical History: CVA/TIA, Hyperlipidemia, Hypertension History of Any Multi-Drug Resistant Organisms: None Reported Past Surgical History: No Surgical Hx Reported Past Psychological History: No Psychological Hx Reported Smoking Status: Current every day smoker Past Alcohol Use History: None Reported Past Drug Use History: None Reported Medications and Allergies Home Medications Medication Instructions Recorded Confirmed Type Clopidogrel [Plavix] 75 mg PO DAILY 11/25/23 12/15/23 History Lisinopril-Hctz 20-12.5 mg 1 tab PO DAILY 11/25/23 12/15/23 History [Zestoretic 20-12.5] Aspirin [Adult Low Dose Aspirin EC] 81 mg PO BID 30 Days #60 tab 11/30/23 12/15/23 Rx HYDROcodone/APAP 5-325MG [Verner 1 - 2 tab PO Q6HR PRN #32 tab 11/30/23 12/15/23 Rx 5-325] Nicotine 21Mg/24Hr Patch [Habitrol] 1 patch TRANSDERM DAILY patch 11/30/23 12/15/23 Rx Lactose-Reduced Food [Ensure Plus] 1 can PO DAILY 12/15/23 12/15/23 History Sennosides [Senokot] 17.2 tab PO DAILY PRN 12/15/23 12/15/23 History Allergies Allergy/AdvReac Type Severity Reaction Status Date / Time No Known Allergies Allergy Verified 12/15/23 11:53 Physical Exam Vitals: Vital Signs Temp Pulse Resp BP Pulse Ox 12/15/23 12:50 78 25 H 88/58 93 L 12/15/23 12:00 78 29 H 97/47 89 L 12/15/23 11:45 81 28 H 92/44 95 12/15/23 11:30 83 31 H 84/52 95 12/15/23 11:15 79 32 H 95/46 97 12/15/23 11:00 84 24 76/43 95 12/15/23 10:45 82 27 H 94/52 97 12/15/23 10:19 98.7 F 80 30 H 80/53 97 Intake and Output 12/14/23 12/15/23 12/15/23 22:59 06:59 14:59 Output Total 3000 Balance -3000 Output: Urine 3000 Other: Weight 90.718 kg In general patient is alert and oriented x 3 in no distress HEENT head normocephalic and atraumatic Neck is supple no JVD no goiter no lymphadenopathy no carotid bruit Chest examination is clear to auscultation no crackles no wheezing Cardiac exam reveals regular heart sounds S1 and S2 no gallops no murmurs Abdomen is soft with mild diffuse tenderness no organomegaly no palpable masses with sluggish bowel sounds Extremity exam reveals no edema no cyanosis or clubbing Neurological examination reveals no gross focal deficits Results CBC & Chem 7: 12/15/23 10:41 12/15/23 14:35 Labs: Abnormal Lab Results - Last 24 Hours (Table) 12/15/23 12/15/23 12/15/23 Range/Units 10:41 11:21 11:21 WBC 14.5 H (3.8-10.6) k/uL RBC 3.19 L (4.30-5.90) m/uL Hgb 10.1 L (13.0-17.5) gm/dL Hct 30.3 L (39.0-53.0) % Plt Count 511 H (150-450) k/uL Neutrophils # 13.5 H (1.3-7.7) k/uL Lymphocytes # 0.2 L (1.0-4.8) k/uL PT 9.7 L (10.0-12.5) sec Sodium 122 L (137-145) mmol/L Potassium 6.0 H (3.5-5.1) mmol/L Chloride 79 L (98-107) mmol/L Carbon Dioxide 32 H (22-30) mmol/L BUN 83 H (9-20) mg/dL Creatinine 4.23 H (0.66-1.25) mg/dL Glucose 137 H (74-99) mg/dL Calcium 8.2 L (8.4-10.2) mg/dL Albumin 3.4 L (3.5-5.0) g/dL Assessment and Plan Plan: Abdominal pain Dilated small bowels with possible ileus versus partial small bowel obstruction Urinary retention Hypotension Severe hyponatremia Acute kidney injury Electrolyte imbalance with severe hyperkalemia Leukocytosis Recent fall with right femur fracture with surgical repair At this time patient is admitted to medical floor Rich catheter was inserted in the emergency room He was started on IV fluid Nephrology and urology consultation were requested For DVT prophylaxis subcu Bandar Will follow closely
[2023-12-15] MEDS: DEXTROSE 50% SYRINGE 50 ML IVP STA (17:05)
[2023-12-15] MEDS: INSULIN REGULAR 100 UNIT/ML VIAL (IV) IV STA (17:06)
[2023-12-15] MEDS: SODIUM ZIRCONIUM CYCLOSILICATE 10 GM PACKET PO ONE (17:26)
[2023-12-15] MEDS: NOREPINEPHRINE 4 MG in SODIUM CHLORIDE 0.9% 250 ML IV ONE (18:07)
[2023-12-15 18:50] LABS: African American GFR (CKD) 15 (>60 ml/min/1.73 sqM); Anion Gap 8 mmol/L; Blood Urea Nitrogen 83 mg/dL (9-20); Calcium 7.4 mg/dL (8.4-10.2); Carbon Dioxide 22 mmol/L (22-30); Chloride 93 mmol/L (98-107); Glucose 104 mg/dL (74-99); Magnesium 2.7 mg/dL (1.6-2.3); Non-African American GFR(CKD) 13 (>60 ml/min/1.73 sqM); Potassium 5.3 mmol/L (3.5-5.1); Sodium 123 mmol/L (137-145)
[2023-12-15 19:01] LABS: Basophils % (A) 0 %; Eosinophils % (A) 0 %; HCT 26.3 % (39.0-53.0); Hypochromasia Slight; Lymphocytes # (A) 0.5 k/uL (1.0-4.8); Lymphocytes % (A) 5 %; MCH 30.8 pg (25.0-35.0); MCHC 31.5 g/dL (31.0-37.0); MCV 97.7 fL (80.0-100.0); Mean Platelet Volume 6.6; Monocytes # (A) 0.6 k/uL (0-1.0); Monocytes % (A) 6 %; Neutrophils # (A) 9.5 k/uL (1.3-7.7); Neutrophils % (A) 89 %; Platelet Count 442 k/uL (150-450); RBC 2.69 m/uL (4.30-5.90); RDW 12.9 % (11.5-15.5); WBC 10.7 k/uL (3.8-10.6)
[2023-12-15 19:44] LABS: HGB 8.3 gm/dL (13.0-17.5)
--- NOTE | 2023-12-15 20:13 | XR ---
EXAMINATION TYPE: XR chest 1V portable DATE OF EXAM: 12/15/2023 8:07 PM CLINICAL INDICATION:Male, 77 years old with history of central line placement; [facility] COMPARISON: Chest radiographs from same day. TECHNIQUE: XR chest 1V portable Frontal view of the chest. FINDINGS: Lungs/Pleura: System blunting of the left costophrenic sulcus is identified. Pulmonary vascularity: Pulmonary vascular congestion. Heart/mediastinum: Stable enlarged. Musculoskeletal: No acute osseous pathology. Other findings: Enteric tube is seen in stable position. Left-sided PICC line is seen crossing the mi dline and terminating in the region of the superior vena cava. IMPRESSION: 1. Appropriately positioned PICC line. 2. Stable positioning of enteric tube. 3. Persistent findings concerning for underlying heart failure. [facility], , 12/15/2023 8:11 PM
--- NOTE | 2023-12-15 21:45 | P.PCN ---
Date of Procedure: 12/15/23 Operative Findings: Preoperative Diagnosis: Hypotension, RAFAELA Postoperative Diagnosis: Hypotension, RAFAELA Procedure(s) Performed: Arterial line and a central line Anesthesia: local Surgeon: Kyle Morton Estimated Blood Loss (ml): 0 Condition: critical Disposition: ICU Operative Findings: Indication: Hemodynamic monitoring. A time-out was completed verifying correct patient, procedure, site, positioning, and implant(s) or special equipment if applicable. The patients right wrist was prepped and draped in sterile fashion. 1% Lidocaine was used to anesthetize the area. An 18G Arrow arterial line was introduced into the right radial artery. The catheter was threaded over the guide wire and the needle was removed with appropriate pulsatile blood return. Blood loss was minimal. The catheter was then sutured in place to the skin and a sterile dressing applied. Perfusion to the extremity distal to the point of catheter insertion was checked and found to be adequate. The patient tolerated the procedure well and there were no complications. Indication: Hemodynamic monitoring/Intravenous access. A time-out was completed verifying correct patient, procedure, site, positioning, and implant(s) or special equipment if applicable. The patient was placed in a dependent position appropriate for triple lumen catheter placement based on the vein to be cannulated. The patient's left subclavian jugular area was prepped and draped in sterile fashion. 1% Lidocaine was used to anesthetize the surrounding skin area. A triple lumen 9F Cordis catheter was introduced into the left subclavian vein using Seldinger technique. The catheter was threaded smoothly over the guide wire and appropriate blood return was obtained. Each lumen of the catheter was evacuated of air and flushed with sterile saline. The catheter was then sutured in place to the skin and a sterile dressing applied. Perfusion to the extremity distal to the point of catheter insertion was checked and found to be adequate.
--- NOTE | 2023-12-15 22:03 | P.CNPUL ---
History of Present Illness Consult date: 12/15/23 Chief complaint: Hypotension, acute kidney injury, abdominal pain History of present illness: 77-year-old male patient, presented to the hospital because of abdominal pain, nausea, emesis, abdominal distention along with weakness, and hypotension. He also noted diminished urine output. His last bowel movement was more than 2 days ago. He is not passing any flatus. He was not treated secondary for rehabilitation following a fall with a fracture requiring surgery. In the emergency, the patient was found to have an acute on top of chronic kidney injury. Rich catheter was inserted and the patient immediately produced around 1 L of urine output. Patient was also given an NG tube and a total of 2.5 L of gastric material was aspirated immediately. CAT scan of the abdomen and pelvis was done in the emergency and the patient was found to have fluid-filled esophagus with dilated gas and fluid-filled stomach. Patient also had dilated small bowel with air fluid levels. The distal small bowel appeared collapsed and there was no clear focal transition identified. No focal bowel wall thickening or inflammatory changes. The small bowel measures up to 4.3 cm in size. Gas and stool was present in the large bowel. Appendix was normal. No evidence of interval pneumoperitoneum. Small bilateral pleural effusions along with compressive atelectasis in the lung bases were noted. Blood work showed an acute on top of chronic kidney injury. The patient's creatinine was up to 4.23 with a BUN of 83 and his sodium was 122 with a potassium level of 6 and a chloride was 79 with a bicarb level of 32. Normal LFTs. proBNP level is 468. Amylase and lipase are within normal limits. The white cell count of 14.5 with a hemoglobin 10.1 and a platelet of 511. Coagulation profile is within normal limits. Chest x-ray showed cardiomegaly with mild pulm vascular congestion. For now, the patient is being resuscitated with IV fluids. He is on normal saline at rate of 100 cc an hour. He is also on norepinephrine which is running at 0.15 mcg/kg/min. He is on oxygen at 3 L/min nasal cannula. Triple-lumen catheter was established and the intensive care unit along with an arterial line. General surgery is on the case. Nephrology is also on the case. 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 He is an ex-smoker. Review of Systems Constitutional: Reports fatigue, Reports weakness Eyes: denies as per HPI, denies blurred vision, denies bulging eye, denies decreased vision, denies diplopia, denies discharge, denies dry eye, denies irritation, denies itching, denies pain, denies photophobia, denies loss of peripheral vision, denies loss of vision, denies tunnel vision/blind spots Ears: deny: decreased hearing, ear discharge, earache, tinnitus Ears, nose, mouth and throat: Reports as per HPI Breasts: absent: as per HPI, gynecomastia Cardiovascular: Reports as per HPI Respiratory: Reports as per HPI Gastrointestinal: Reports abdominal pain, Reports nausea, Reports vomiting Genitourinary: Reports as per HPI Musculoskeletal: Reports as per HPI Musculoskeletal: absent: ankle pain, ankle stiffness, ankle swelling, as per HPI, elbow pain, elbow stiffness, elbow swelling, foot pain, foot stiffness, foot swelling, hand pain, hand stiffness, hand swelling, hip pain, hip stiffness, hip swelling, knee pain, knee stiffness, knee swelling, shoulder pain, shoulder stiffness, shoulder swelling, wrist pain, wrist stiffness, wrist swelling Integumentary: Reports as per HPI Neurological: Reports as per HPI, Reports weakness Psychiatric: Reports as per HPI Endocrine: Reports as per HPI Hematologic/Lymphatic: Reports as per HPI Allergic/Immunologic: Reports as per HPI Past Medical History Past Medical History: CVA/TIA, Hyperlipidemia, Hypertension, Prostate Disorder (BPH) Additional Past Medical History / Comment(s): Moderate severe aortic stenosis History of Any Multi-Drug Resistant Organisms: None Reported Past Surgical History: No Surgical Hx Reported Past Psychological History: No Psychological Hx Reported Smoking Status: Current every day smoker Past Alcohol Use History: None Reported Past Drug Use History: None Reported Medications and Allergies Home Medications Medication Instructions Recorded Confirmed Type Clopidogrel [Plavix] 75 mg PO DAILY 11/25/23 12/15/23 History Lisinopril-Hctz 20-12.5 mg 1 tab PO DAILY 11/25/23 12/15/23 History [Zestoretic 20-12.5] Aspirin [Adult Low Dose Aspirin EC] 81 mg PO BID 30 Days #60 tab 11/30/23 12/15/23 Rx HYDROcodone/APAP 5-325MG [[place] 1 - 2 tab PO Q6HR PRN #32 tab 11/30/23 12/15/23 Rx 5-325] Nicotine 21Mg/24Hr Patch [Habitrol] 1 patch TRANSDERM DAILY patch 11/30/23 12/15/23 Rx Lactose-Reduced Food [Ensure Plus] 1 can PO DAILY 12/15/23 12/15/23 History Sennosides [Senokot] 17.2 tab PO DAILY PRN 12/15/23 12/15/23 History Allergies Allergy/AdvReac Type Severity Reaction Status Date / Time No Known Allergies Allergy Verified 12/15/23 11:53 Physical Exam Vitals: Vital Signs Temp Pulse Resp BP Pulse Ox 12/15/23 21:00 73 15 97 12/15/23 20:45 80 19 102/40 98 12/15/23 20:30 80 19 105/46 96 12/15/23 20:15 75 20 96/41 97 12/15/23 20:00 74 13 82/39 95 12/15/23 19:45 79 17 77/51 97 12/15/23 19:30 75 18 81/36 96 12/15/23 19:15 70 7 L 95/45 99 12/15/23 19:00 69 17 84/40 97 12/15/23 18:30 74 23 86/40 99 12/15/23 18:00 98.6 F 84 20 78/64 97 12/15/23 17:55 78/64 94 L 12/15/23 17:30 85 20 60/38 95 12/15/23 17:15 81 22 69/42 98 12/15/23 17:00 73 22 90/41 98 12/15/23 16:00 71 24 81/41 98 12/15/23 15:45 74/44 12/15/23 15:42 98.1 F 80 26 H 77/34 96 12/15/23 15:30 75 22 84/39 90 L 12/15/23 15:00 74 25 H 74/33 96 12/15/23 14:30 75 22 83/38 93 L 12/15/23 14:00 79 14 80/40 97 12/15/23 13:30 78 20 76/33 98 12/15/23 13:00 75 27 H 88/58 92 L 12/15/23 12:50 78 25 H 88/58 93 L 12/15/23 12:00 78 29 H 97/47 89 L 12/15/23 11:45 81 28 H 92/44 95 12/15/23 11:30 83 31 H 84/52 95 12/15/23 11:15 79 32 H 95/46 97 12/15/23 11:00 84 24 76/43 95 12/15/23 10:45 82 27 H 94/52 97 12/15/23 10:19 98.7 F 80 30 H 80/53 97 Intake and Output 12/15/23 12/15/23 12/15/23 06:59 14:59 22:59 Intake Total 2200 Output Total 3000 3955 Balance -3000 -1755 Intake: IV 1000 0.9 1000 Intake, IV Titration 1200 Amount Sodium Chloride 0.9% 1, 200 000 ml @ 100 mls/hr IV . Q10H [facility] Rx#:[id number] Sodium Chloride 0.9% 1, 1000 000 ml @ 999 mls/hr IV . Q1H1M ONE Rx#:[id number] Output: Gastric Drainage 3350 Urine 3000 605 Other: Voiding Method Indwelling Catheter Weight 90.718 kg ABP, PAP, CO, CI - Last 8 Hours Arterial Blood Pressure 127/40 Arterial Blood Pressure 66/53 Arterial Blood Pressure 118/37 Arterial Blood Pressure 107/32 Arterial Blood Pressure 111/30 Arterial Blood Pressure 47/41 - Constitutional General appearance: no acute distress (The patient has an NG tube in place. No signs of an acute respiratory distress and the patient is currently on 3 L oxygen by nasal cannula.) - EENT Eyes: EOMI Ears: negative: bulging, bullous, dull, erythema, fluid, myringotomy tube, obstructed by cerumen, scarring, unable to vistualize, other - Neck Neck: normal ROM Carotids: negative: upstroke normal, upstroke delayed, upstroke diminished, upstroke bounding, bruit absent, bruit present Thyroid: negative: normal size, enlarged, firm, nodule - Respiratory Respiratory: negative: CTA, diminished, dullness, rales, rhonchi, wheezing, prolonged expiration, prolonged inspiration, other - Cardiovascular Rhythm: regular Heart sounds: abnormal: S1, S2 Abnormal Heart Sounds: systolic murmur systolic murmur (2) Type: holo Location: apex Grade: III/ - Gastrointestinal General gastrointestinal: absent bowel sounds, distended Localized gastrointestinal: surgical scar: diffuse - Genitourinary Male genitourinary: enlarged prostate - Integumentary Integumentary: normal - Neurologic Neurologic: CNII-XII intact - Musculoskeletal Musculoskeletal: left sided weakness - Psychiatric Psychiatric: A&O x's 3 Results - Laboratory Findings CBC and BMP: 12/15/23 18:26 12/15/23 18:26 PT/INR, D-dimer PT 9.7 sec (10.0-12.5) L 12/15/23 11:21 INR 0.9 (<1.2) 12/15/23 11:21 Abnormal lab findings: Abnormal Labs 12/15/23 12/15/23 12/15/23 10:41 11:21 11:21 WBC 14.5 H RBC 3.19 L Hgb 10.1 L Hct 30.3 L Plt Count 511 H Neutrophils # 13.5 H Lymphocytes # 0.2 L PT 9.7 L Sodium 122 L Potassium 6.0 H Chloride 79 L Carbon Dioxide 32 H BUN 83 H Creatinine 4.23 H Glucose 137 H Calcium 8.2 L Magnesium Albumin 3.4 L 12/15/23 12/15/23 12/15/23 14:35 18:26 18:26 WBC 10.7 H RBC 2.69 L Hgb 8.3 L D Hct 26.3 L Plt Count Neutrophils # 9.5 H Lymphocytes # 0.5 L PT Sodium 121 L 123 L Potassium 6.1 H* 5.3 H Chloride 85 L 93 L Carbon Dioxide BUN 83 H 83 H Creatinine 4.24 H 4.09 H Glucose 119 H 104 H Calcium 7.6 L 7.4 L Magnesium 2.7 H Albumin - Diagnostic Findings Chest x-ray: image reviewed Assessment and Plan Plan: Small bowel obstruction with secondary abdominal pain and distention. CAT scan of the abdomen shows evidence of small bowel obstruction/ileus without any transition point. Patient is status post NG tube insertion and decompression of the stomach with evacuation of around 2.5 L of gastric juice post NG tube insertion Acute kidney injury, along with evidence of hydronephrosis. Rule out obstructive uropathy as the patient has enlarged prostate with bilateral hydronephrosis. Rich catheter hasbeen inserted. Rule out hypovolemic induced ATN. Acute hyperkalemia secondary to above, improving Moderately severe aortic stenosis Recent hip fracture status post ORIF History of CVA maintained on Plavix with some residual left-sided weakness Hyperlipidemia Anemia of chronic disease Acute hyponatremia in the setting of obstructive uropathy and renal failure Plan Admitted the patient to the ICU Will give a total of 2 L of normal saline Will continue maintenance of 100 cc an hour normal saline Rich catheter has been inserted Monitor urine output and the rest of the electrolytes Nephrology consultation Continue resuscitating this patient with pressors along with fluids. Norepinephrine is running and the dose will be titrated to maintain a pressure mean above 65 Lines has been inserted and achieved including a triple-lumen catheter General Surgery consultation Keep the NG tube in place
[2023-12-16] MEDS ORDERED: PIPERACILLIN-TAZOBACTAM 3.375 GM in SODIUM CHLORIDE 0.9% 100 ML IVPB SCH
[2023-12-16] MEDS: ASPIRIN 81 MG PO SCH (00:02)
[2023-12-16] MEDS: SODIUM CHLORIDE 0.9% 1,000 ML IV ONE ×2 (00:02→05:41)
[2023-12-16 00:28] LABS: Glucose,Whole Blood 136 mg/dL (70-110)
[2023-12-16] MEDS: NOREPINEPHRINE 8 MG in SODIUM CHLORIDE 0.9% 250 ML IV SCH (00:33)
[2023-12-16 00:53] LABS: ABG Base Excess -5.4 mmol/L; ABG HCO3 22 mmol/L (21-25); ABG PCO2 50 mmHg (35-45); ABG PH 7.25 (7.35-7.45); ABG PO2 88 mmHg (83-108); ABG TCO2 23 mmol/L (19-24); Allen Test Performed? no
[2023-12-16 01:07] LABS: ALT 19 U/L (4-49); AST 52 U/L (17-59); African American GFR (CKD) 20 (>60 ml/min/1.73 sqM); Albumin 2.4 g/dL (3.5-5.0); Alkaline Phosphatase 91 U/L (38-126); Anion Gap 8 mmol/L; Blood Urea Nitrogen 69 mg/dL (9-20); Calcium 7.3 mg/dL (8.4-10.2); Carbon Dioxide 20 mmol/L (22-30); Chloride 100 mmol/L (98-107); Glucose 120 mg/dL (74-99); Magnesium 2.5 mg/dL (1.6-2.3); Non-African American GFR(CKD) 17 (>60 ml/min/1.73 sqM); Sodium 128 mmol/L (137-145); Total Bilirubin 0.5 mg/dL (0.2-1.3)
[2023-12-16] MEDS: PIPERACILLIN-TAZOBACTAM 3.375 GM in SODIUM CHLORIDE 0.9% 100 ML IVPB SCH ×2 (02:00→11:59)
[2023-12-16] MEDS: ENOXAPARIN 30 MG/0.3 ML SYRINGE SQ SCH (03:39)
[2023-12-16] MEDS ORDERED: VANCOMYCIN IV PER PHARMACY 1 EACH MISC MISCELLANE PRN (05:23)
[2023-12-16] MEDS: VASOPRESSIN 20 UNIT in SODIUM CHLORIDE 0.9% 50 ML IV SCH (05:51)
[2023-12-16 05:53] LABS: Basophils % (A) 0 %; Eosinophils % (A) 0 %; HCT 27.7 % (39.0-53.0); HGB 8.8 gm/dL (13.0-17.5); Lymphocytes # (A) 0.5 k/uL (1.0-4.8); Lymphocytes % (A) 4 %; MCH 30.8 pg (25.0-35.0); MCHC 31.9 g/dL (31.0-37.0); MCV 96.7 fL (80.0-100.0); Mean Platelet Volume 7.7; Monocytes # (A) 0.6 k/uL (0-1.0); Monocytes % (A) 5 %; Neutrophils # (A) 10.5 k/uL (1.3-7.7); Neutrophils % (A) 90 %; Platelet Count 578 k/uL (150-450); RBC 2.86 m/uL (4.30-5.90); RDW 13.3 % (11.5-15.5); WBC 11.7 k/uL (3.8-10.6)
[2023-12-16] MEDS: VANCOMYCIN 1,750 MG in SODIUM CHLORIDE 0.9% 500 ML 500 ML IVPB ONE (06:44)
[2023-12-16 07:05] LABS: ALT 20 U/L (4-49); AST 53 U/L (17-59); African American GFR (CKD) 25 (>60 ml/min/1.73 sqM); Albumin 2.4 g/dL (3.5-5.0); Alkaline Phosphatase 101 U/L (38-126); Anion Gap 7 mmol/L; Blood Urea Nitrogen 63 mg/dL (9-20); Calcium 7.5 mg/dL (8.4-10.2); Carbon Dioxide 20 mmol/L (22-30); Chloride 103 mmol/L (98-107); Glucose 126 mg/dL (74-99); Magnesium 2.5 mg/dL (1.6-2.3); Non-African American GFR(CKD) 22 (>60 ml/min/1.73 sqM); Phosphorus 5.4 mg/dL (2.5-4.5); Potassium 5.4 mmol/L (3.5-5.1); Sodium 130 mmol/L (137-145); Total Bilirubin 0.5 mg/dL (0.2-1.3); Total Protein 5.1 g/dL (6.3-8.2)
[2023-12-16 07:09] LABS: NT-Pro-B-Type Natriuretic Pept 1360 pg/mL
[2023-12-16 07:27] LABS: Creatine Kinase 1024 U/L (55-170)
[2023-12-16] MEDS ORDERED: CLOPIDOGREL 75 MG TAB PO SCH (09:00)
[2023-12-16] MEDS ORDERED: NON FORMULARY DRUG (Lactose-Reduced Food [Ensure Plus] 237 ML Ml) PO SCH (09:00)
--- NOTE | 2023-12-16 09:04 | P.GSCN ---
History of Present Illness Consult date: 12/16/23 History of present illness: This is a 77-year-old male admitted to the hospital with acute kidney injury, and ileus. On presentation to the hospital patient was hypotensive and was admitted to the ICU. He had a recent femur fracture and was recently discharged home to subacute rehab. Urology is consulted for finding of a distended bladder on CT and bilateral hydronephrosis, subsequently a Rich catheter was placed. Patient has a previous history of urinary retention and underwent a TURP in 2021, following the TURP he indicated he has been voiding without any issues. No retention since the time of the TURP. His creatinine on presentation was 4.2 which improved to 2.7 this morning with Rich catheter insertion, amount obtained with Rich catheter insertion was unknown, but on CT the bladder was fairly distended. At baseline he denies any gross hematuria dysuria or any difficulty voiding. Review of Systems - Constitutional Denies fever, Denies weight loss - Cardiovascular Denies chest pain, Denies shortness of breath - Respiratory Denies cough, Denies 7 - Gastrointestinal Reports as per HPI, Reports abdominal pain - Genitourinary Denies dysuria, Denies hematuria - Neurological Denies headaches, Denies syncope Past Medical History Past Medical History: CVA/TIA, Hyperlipidemia, Hypertension, Prostate Disorder (BPH) Additional Past Medical History / Comment(s): Moderate severe aortic stenosis History of Any Multi-Drug Resistant Organisms: None Reported Past Surgical History: No Surgical Hx Reported Past Psychological History: No Psychological Hx Reported Smoking Status: Current every day smoker Past Alcohol Use History: None Reported Past Drug Use History: None Reported Medications and Allergies Home Medications Medication Instructions Recorded Confirmed Type Clopidogrel [Plavix] 75 mg PO DAILY 11/25/23 12/15/23 History Lisinopril-Hctz 20-12.5 mg 1 tab PO DAILY 11/25/23 12/15/23 History [Zestoretic 20-12.5] Aspirin [Adult Low Dose Aspirin EC] 81 mg PO BID 30 Days #60 tab 11/30/23 12/15/23 Rx HYDROcodone/APAP 5-325MG [[place] 1 - 2 tab PO Q6HR PRN #32 tab 11/30/23 12/15/23 Rx 5-325] Nicotine 21Mg/24Hr Patch [Habitrol] 1 patch TRANSDERM DAILY patch 11/30/23 12/15/23 Rx Lactose-Reduced Food [Ensure Plus] 1 can PO DAILY 12/15/23 12/15/23 History Sennosides [Senokot] 17.2 tab PO DAILY PRN 12/15/23 12/15/23 History Allergies Allergy/AdvReac Type Severity Reaction Status Date / Time No Known Allergies Allergy Verified 12/15/23 11:53 Surgical - Exam Vital Signs Temp Pulse Resp BP Pulse Ox 98.7 F 80 30 H 80/53 97 12/15/23 10:19 12/15/23 10:19 12/15/23 10:19 12/15/23 10:19 12/15/23 10:19 - General no distress, no pain - Eyes normal ocular movement, no pale - ENT normal nares, normal mucosa - Respiratory normal expansion, normal respiratory effort - Abdomen Abdomen: soft, non tender, distended - Psychiatric oriented to time, oriented to person, oriented to place Results - Labs 12/16/23 05:27 12/16/23 05:27 Abnormal Lab Results - Last 24 Hours (Table) 12/15/23 12/15/23 12/15/23 Range/Units 10:41 11:21 11:21 WBC 14.5 H (3.8-10.6) k/uL RBC 3.19 L (4.30-5.90) m/uL Hgb 10.1 L (13.0-17.5) gm/dL Hct 30.3 L (39.0-53.0) % Plt Count 511 H (150-450) k/uL Neutrophils # 13.5 H (1.3-7.7) k/uL Lymphocytes # 0.2 L (1.0-4.8) k/uL PT 9.7 L (10.0-12.5) sec ABG pH (7.35-7.45) ABG pCO2 (35-45) mmHg Sodium 122 L (137-145) mmol/L Potassium 6.0 H (3.5-5.1) mmol/L Chloride 79 L (98-107) mmol/L Carbon Dioxide 32 H (22-30) mmol/L BUN 83 H (9-20) mg/dL Creatinine 4.23 H (0.66-1.25) mg/dL Glucose 137 H (74-99) mg/dL POC Glucose (mg/dL) (70-110) mg/dL Calcium 8.2 L (8.4-10.2) mg/dL Phosphorus (2.5-4.5) mg/dL Magnesium (1.6-2.3) mg/dL Creatine Kinase (55-170) U/L Total Protein (6.3-8.2) g/dL Albumin 3.4 L (3.5-5.0) g/dL 12/15/23 12/15/23 12/15/23 Range/Units 14:35 18:26 18:26 WBC 10.7 H (3.8-10.6) k/uL RBC 2.69 L (4.30-5.90) m/uL Hgb 8.3 L D (13.0-17.5) gm/dL Hct 26.3 L (39.0-53.0) % Plt Count (150-450) k/uL Neutrophils # 9.5 H (1.3-7.7) k/uL Lymphocytes # 0.5 L (1.0-4.8) k/uL PT (10.0-12.5) sec ABG pH (7.35-7.45) ABG pCO2 (35-45) mmHg Sodium 121 L 123 L (137-145) mmol/L Potassium 6.1 H* 5.3 H (3.5-5.1) mmol/L Chloride 85 L 93 L (98-107) mmol/L Carbon Dioxide (22-30) mmol/L BUN 83 H 83 H (9-20) mg/dL Creatinine 4.24 H 4.09 H (0.66-1.25) mg/dL Glucose 119 H 104 H (74-99) mg/dL POC Glucose (mg/dL) (70-110) mg/dL Calcium 7.6 L 7.4 L (8.4-10.2) mg/dL Phosphorus (2.5-4.5) mg/dL Magnesium 2.7 H (1.6-2.3) mg/dL Creatine Kinase (55-170) U/L Total Protein (6.3-8.2) g/dL Albumin (3.5-5.0) g/dL 12/16/23 12/16/23 12/16/23 Range/Units 00:01 00:20 00:26 WBC (3.8-10.6) k/uL RBC (4.30-5.90) m/uL Hgb (13.0-17.5) gm/dL Hct (39.0-53.0) % Plt Count (150-450) k/uL Neutrophils # (1.3-7.7) k/uL Lymphocytes # (1.0-4.8) k/uL PT (10.0-12.5) sec ABG pH 7.25 L (7.35-7.45) ABG pCO2 50 H (35-45) mmHg Sodium 128 L (137-145) mmol/L Potassium (3.5-5.1) mmol/L Chloride (98-107) mmol/L Carbon Dioxide 20 L (22-30) mmol/L BUN 69 H (9-20) mg/dL Creatinine 3.31 H (0.66-1.25) mg/dL Glucose 120 H (74-99) mg/dL POC Glucose (mg/dL) 136 H (70-110) mg/dL Calcium 7.3 L (8.4-10.2) mg/dL Phosphorus (2.5-4.5) mg/dL Magnesium 2.5 H (1.6-2.3) mg/dL Creatine Kinase (55-170) U/L Total Protein 5.0 L (6.3-8.2) g/dL Albumin 2.4 L (3.5-5.0) g/dL 24 12/16/23 Range/Units 05:27 05:27 WBC 11.7 H (3.8-10.6) k/uL RBC 2.86 L (4.30-5.90) m/uL Hgb 8.8 L (13.0-17.5) gm/dL Hct 27.7 L (39.0-53.0) % Plt Count 578 H (150-450) k/uL Neutrophils # 10.5 H (1.3-7.7) k/uL Lymphocytes # 0.5 L (1.0-4.8) k/uL PT (10.0-12.5) sec ABG pH (7.35-7.45) ABG pCO2 (35-45) mmHg Sodium 130 L (137-145) mmol/L Potassium 5.4 H (3.5-5.1) mmol/L Chloride (98-107) mmol/L Carbon Dioxide 20 L (22-30) mmol/L BUN 63 H (9-20) mg/dL Creatinine 2.73 H (0.66-1.25) mg/dL Glucose 126 H (74-99) mg/dL POC Glucose (mg/dL) (70-110) mg/dL Calcium 7.5 L (8.4-10.2) mg/dL Phosphorus 5.4 H (2.5-4.5) mg/dL Magnesium 2.5 H (1.6-2.3) mg/dL Creatine Kinase 1024 H* (55-170) U/L Total Protein 5.1 L (6.3-8.2) g/dL Albumin 2.4 L (3.5-5.0) g/dL Diabetes panel 12/15/23 12/15/23 12/15/23 Range/Units 11:21 14:35 18:26 Sodium 122 L 121 L 123 L (137-145) mmol/L Potassium 6.0 H 6.1 H* 5.3 H (3.5-5.1) mmol/L Chloride 79 L 85 L 93 L (98-107) mmol/L Carbon Dioxide 32 H 27 22 (22-30) mmol/L BUN 83 H 83 H 83 H (9-20) mg/dL Creatinine 4.23 H 4.24 H 4.09 H (0.66-1.25) mg/dL Glucose 137 H 119 H 104 H (74-99) mg/dL Calcium 8.2 L 7.6 L 7.4 L (8.4-10.2) mg/dL AST 35 (17-59) U/L ALT 18 (4-49) U/L Alkaline Phosphatase 106 (38-126) U/L Total Protein 6.4 (6.3-8.2) g/dL Albumin 3.4 L (3.5-5.0) g/dL 12/16/23 12/16/23 Range/Units 00:01 05:27 Sodium 128 L 130 L (137-145) mmol/L Potassium 5.0 5.4 H (3.5-5.1) mmol/L Chloride 100 103 (98-107) mmol/L Carbon Dioxide 20 L 20 L (22-30) mmol/L BUN 69 H 63 H (9-20) mg/dL Creatinine 3.31 H 2.73 H (0.66-1.25) mg/dL Glucose 120 H 126 H (74-99) mg/dL Calcium 7.3 L 7.5 L (8.4-10.2) mg/dL AST 52 53 (17-59) U/L ALT 19 20 (4-49) U/L Alkaline Phosphatase 91 101 (38-126) U/L Total Protein 5.0 L 5.1 L (6.3-8.2) g/dL Albumin 2.4 L 2.4 L (3.5-5.0) g/dL Calcium panel 12/15/23 12/15/23 12/15/23 Range/Units 11:21 14:35 18:26 Calcium 8.2 L 7.6 L 7.4 L (8.4-10.2) mg/dL Phosphorus (2.5-4.5) mg/dL Albumin 3.4 L (3.5-5.0) g/dL 12/16/23 12/16/23 Range/Units 00:01 05:27 Calcium 7.3 L 7.5 L (8.4-10.2) mg/dL Phosphorus 5.4 H (2.5-4.5) mg/dL Albumin 2.4 L 2.4 L (3.5-5.0) g/dL Pituitary panel 12/15/23 12/15/23 12/15/23 Range/Units 11:21 14:35 18:26 Sodium 122 L 121 L 123 L (137-145) mmol/L Potassium 6.0 H 6.1 H* 5.3 H (3.5-5.1) mmol/L Chloride 79 L 85 L 93 L (98-107) mmol/L Carbon Dioxide 32 H 27 22 (22-30) mmol/L BUN 83 H 83 H 83 H (9-20) mg/dL Creatinine 4.23 H 4.24 H 4.09 H (0.66-1.25) mg/dL Glucose 137 H 119 H 104 H (74-99) mg/dL Calcium 8.2 L 7.6 L 7.4 L (8.4-10.2) mg/dL 12/16/23 12/16/23 Range/Units 00:01 05:27 Sodium 128 L 130 L (137-145) mmol/L Potassium 5.0 5.4 H (3.5-5.1) mmol/L Chloride 100 103 (98-107) mmol/L Carbon Dioxide 20 L 20 L (22-30) mmol/L BUN 69 H 63 H (9-20) mg/dL Creatinine 3.31 H 2.73 H (0.66-1.25) mg/dL Glucose 120 H 126 H (74-99) mg/dL Calcium 7.3 L 7.5 L (8.4-10.2) mg/dL Adrenal panel 12/15/23 12/15/23 12/15/23 Range/Units 11:21 14:35 18:26 Sodium 122 L 121 L 123 L (137-145) mmol/L Potassium 6.0 H 6.1 H* 5.3 H (3.5-5.1) mmol/L Chloride 79 L 85 L 93 L (98-107) mmol/L Carbon Dioxide 32 H 27 22 (22-30) mmol/L BUN 83 H 83 H 83 H (9-20) mg/dL Creatinine 4.23 H 4.24 H 4.09 H (0.66-1.25) mg/dL Glucose 137 H 119 H 104 H (74-99) mg/dL Calcium 8.2 L 7.6 L 7.4 L (8.4-10.2) mg/dL Total Bilirubin 0.7 (0.2-1.3) mg/dL AST 35 (17-59) U/L ALT 18 (4-49) U/L Alkaline Phosphatase 106 (38-126) U/L Total Protein 6.4 (6.3-8.2) g/dL Albumin 3.4 L (3.5-5.0) g/dL 12/16/23 12/16/23 Range/Units 00:01 05:27 Sodium 128 L 130 L (137-145) mmol/L Potassium 5.0 5.4 H (3.5-5.1) mmol/L Chloride 100 103 (98-107) mmol/L Carbon Dioxide 20 L 20 L (22-30) mmol/L BUN 69 H 63 H (9-20) mg/dL Creatinine 3.31 H 2.73 H (0.66-1.25) mg/dL Glucose 120 H 126 H (74-99) mg/dL Calcium 7.3 L 7.5 L (8.4-10.2) mg/dL Total Bilirubin 0.5 0.5 (0.2-1.3) mg/dL AST 52 53 (17-59) U/L ALT 19 20 (4-49) U/L Alkaline Phosphatase 91 101 (38-126) U/L Total Protein 5.0 L 5.1 L (6.3-8.2) g/dL Albumin 2.4 L 2.4 L (3.5-5.0) g/dL Assessment and Plan Assessment: 77-year-old with urinary retention causing bilateral hydronephrosis. Previous history of TURP for urinary retention in 2021 has been voiding without issue post TURP. His retention is most likely secondary to his current deconditioning secondary to ileus, recent surgery and his weakness. He probably has some component of neurogenic bladder secondary to previous history of stroke. At this time recommend keeping the Rich catheter until patient is closer to discharge. At that time he can have a trial of void. I will also start him on Flomax -Rich can be removed when patient is closer to discharge, at that point obtain a postvoid residual if less than 400 mL then he is okay to be discharged without a Rich catheter -Will start Flomax
--- NOTE | 2023-12-16 10:28 | P.PN ---
Subjective Patient is seen in follow-up for acute kidney injury. Renal function improving. Nonoliguric. Receiving IV fluids. Also on vasopressors. Vital signs are stable. On vasopressor support. General: Resting in bed. HEENT: NG tube noted. LUNGS: Scattered rhonchi. HEART: Rate and Rhythm are regular. ABDOMEN: Nontender. Distention noted. EXTREMITITES: No edema. Objective - Vital Signs Vital signs: Vital Signs Temp 98.1 F 12/16/23 04:00 Pulse 56 L 12/16/23 07:00 Resp 15 12/16/23 07:00 BP 117/54 12/15/23 23:45 Pulse Ox 98 12/16/23 07:00 FiO2 Intake & Output 12/15/23 12/16/23 12/16/23 18:59 06:59 18:59 Intake Total 1000 5163.132 5.412 Output Total 6525 2970 Balance -5525 2193.132 5.412 Weight 90.718 kg 102.2 kg Intake: IV 1000 0.9 1000 Intake, IV Titration 5163.132 5.412 Amount Norepinephrine 8 mg In 463.132 5.412 Sodium Chloride 0.9% 250 ml @ 0.03 MCG/KG/MIN 5. 266 mls/hr IV .Q24H [facility] Rx#:[id number] Piperacillin-Tazobactam 3 100 .375 gm In Sodium Chloride 0.9% 100 ml @ 25 mls/hr IVPB Q12H [facility] Rx# :[id number] Sodium Chloride 0.9% 1, 1100 000 ml @ 100 mls/hr IV . Q10H [facility] Rx#:[id number] Sodium Chloride 0.9% 1, 1000 000 ml @ 999 mls/hr IV . Q1H1M [facility] Rx#:[id number] Sodium Chloride 0.9% 1, 1000 000 ml @ 999 mls/hr IV . Q1H1M [facility] Rx#:[id number] Sodium Chloride 0.9% 1, 1000 000 ml @ 999 mls/hr IV . Q1H1M [facility] Rx#:[id number] Vancomycin 1,750 mg In 500 Sodium Chloride 0.9% 500 ml 500 ml @ 167 mls/hr IVPB ONCE [facility] Rx#: [id number] Output: Gastric Drainage 3300 350 Urine 3225 2620 Other: Voiding Method Indwelling Catheter ABP, PAP, CO, CI - Last Documented Arterial Blood Pressure 133/41 - Labs CBC & Chem 7: 12/16/23 05:27 12/16/23 05:27 Labs: Abnormal Lab Results - Last 24 Hours (Table) 12/15/23 12/15/23 12/15/23 Range/Units 10:41 11:21 11:21 WBC 14.5 H (3.8-10.6) k/uL RBC 3.19 L (4.30-5.90) m/uL Hgb 10.1 L (13.0-17.5) gm/dL Hct 30.3 L (39.0-53.0) % Plt Count 511 H (150-450) k/uL Neutrophils # 13.5 H (1.3-7.7) k/uL Lymphocytes # 0.2 L (1.0-4.8) k/uL PT 9.7 L (10.0-12.5) sec ABG pH (7.35-7.45) ABG pCO2 (35-45) mmHg Sodium 122 L (137-145) mmol/L Potassium 6.0 H (3.5-5.1) mmol/L Chloride 79 L (98-107) mmol/L Carbon Dioxide 32 H (22-30) mmol/L BUN 83 H (9-20) mg/dL Creatinine 4.23 H (0.66-1.25) mg/dL Glucose 137 H (74-99) mg/dL POC Glucose (mg/dL) (70-110) mg/dL Calcium 8.2 L (8.4-10.2) mg/dL Phosphorus (2.5-4.5) mg/dL Magnesium (1.6-2.3) mg/dL Creatine Kinase (55-170) U/L Total Protein (6.3-8.2) g/dL Albumin 3.4 L (3.5-5.0) g/dL 12/15/23 12/15/23 12/15/23 Range/Units 14:35 18:26 18:26 WBC 10.7 H (3.8-10.6) k/uL RBC 2.69 L (4.30-5.90) m/uL Hgb 8.3 L D (13.0-17.5) gm/dL Hct 26.3 L (39.0-53.0) % Plt Count (150-450) k/uL Neutrophils # 9.5 H (1.3-7.7) k/uL Lymphocytes # 0.5 L (1.0-4.8) k/uL PT (10.0-12.5) sec ABG pH (7.35-7.45) ABG pCO2 (35-45) mmHg Sodium 121 L 123 L (137-145) mmol/L Potassium 6.1 H* 5.3 H (3.5-5.1) mmol/L Chloride 85 L 93 L (98-107) mmol/L Carbon Dioxide (22-30) mmol/L BUN 83 H 83 H (9-20) mg/dL Creatinine 4.24 H 4.09 H (0.66-1.25) mg/dL Glucose 119 H 104 H (74-99) mg/dL POC Glucose (mg/dL) (70-110) mg/dL Calcium 7.6 L 7.4 L (8.4-10.2) mg/dL Phosphorus (2.5-4.5) mg/dL Magnesium 2.7 H (1.6-2.3) mg/dL Creatine Kinase (55-170) U/L Total Protein (6.3-8.2) g/dL Albumin (3.5-5.0) g/dL 12/16/23 12/16/23 12/16/23 Range/Units 00:01 00:20 00:26 WBC (3.8-10.6) k/uL RBC (4.30-5.90) m/uL Hgb (13.0-17.5) gm/dL Hct (39.0-53.0) % Plt Count (150-450) k/uL Neutrophils # (1.3-7.7) k/uL Lymphocytes # (1.0-4.8) k/uL PT (10.0-12.5) sec ABG pH 7.25 L (7.35-7.45) ABG pCO2 50 H (35-45) mmHg Sodium 128 L (137-145) mmol/L Potassium (3.5-5.1) mmol/L Chloride (98-107) mmol/L Carbon Dioxide 20 L (22-30) mmol/L BUN 69 H (9-20) mg/dL Creatinine 3.31 H (0.66-1.25) mg/dL Glucose 120 H (74-99) mg/dL POC Glucose (mg/dL) 136 H (70-110) mg/dL Calcium 7.3 L (8.4-10.2) mg/dL Phosphorus (2.5-4.5) mg/dL Magnesium 2.5 H (1.6-2.3) mg/dL Creatine Kinase (55-170) U/L Total Protein 5.0 L (6.3-8.2) g/dL Albumin 2.4 L (3.5-5.0) g/dL 12/16/23 12/16/23 Range/Units 05:27 05:27 WBC 11.7 H (3.8-10.6) k/uL RBC 2.86 L (4.30-5.90) m/uL Hgb 8.8 L (13.0-17.5) gm/dL Hct 27.7 L (39.0-53.0) % Plt Count 578 H (150-450) k/uL Neutrophils # 10.5 H (1.3-7.7) k/uL Lymphocytes # 0.5 L (1.0-4.8) k/uL PT (10.0-12.5) sec ABG pH (7.35-7.45) ABG pCO2 (35-45) mmHg Sodium 130 L (137-145) mmol/L Potassium 5.4 H (3.5-5.1) mmol/L Chloride (98-107) mmol/L Carbon Dioxide 20 L (22-30) mmol/L BUN 63 H (9-20) mg/dL Creatinine 2.73 H (0.66-1.25) mg/dL Glucose 126 H (74-99) mg/dL POC Glucose (mg/dL) (70-110) mg/dL Calcium 7.5 L (8.4-10.2) mg/dL Phosphorus 5.4 H (2.5-4.5) mg/dL Magnesium 2.5 H (1.6-2.3) mg/dL Creatine Kinase 1024 H* (55-170) U/L Total Protein 5.1 L (6.3-8.2) g/dL Albumin 2.4 L (3.5-5.0) g/dL Assessment and Plan Plan: Assessment: 1. Acute kidney injury secondary to ATN secondary to hypotension and urinary retention. Creatinine 4.23 on admission and is improved to 2.73 today. It was 1.91 a day prior to admission and 0.9 dated November 30, 2023. 2. Bilateral hydronephrosis and urinary retention. Currently has Rich catheter. Seen by urology. No interventions planned at this time. Voiding trial prior to discharge. 3. Hyponatremia secondary to acute kidney injury and urinary retention. Further worsened with the use of thiazide diuretic outpatient. Improved. 4. Abdominal pain. Ileus versus bowel obstruction. Surgery following. 5. Chronic diastolic CHF and moderate aortic stenosis and tricuspid regurgitation. 6. Hyperkalemia secondary to acute kidney injury, urinary retention and use of SELINA inhibitor. Improved. 7. Recent hip fracture status post surgical repair. 8. Shock maintained on vasopressors. Plan: Maintain normal saline. Check sodium level now. If higher, will change to half-normal saline. Maintain Rich catheter. Avoid nephrotoxins. Wean vasopressors. Continue to monitor renal function and urine output. Follow-up a.m. cortisol level. Continue to monitor renal function and urine output. Follow-up echocardiogram.
--- NOTE | 2023-12-16 11:18 | P.PN ---
Subjective Progress Note Date: 12/16/23 CHIEF COMPLAINT: Abdominal pain HISTORY OF PRESENT ILLNESS: Patient is currently in ICU he is on 2 medication for blood pressure support. He had 3.3 L out through the NG tube during the night. And 300 mL bilious output this morning. Afebrile. Creatinine is down from 4-2.73 sodium improving from 1 21-1 30 elevated CK level PHYSICAL EXAM: VITAL SIGNS: Reviewed GENERAL: no acute distress. Patient is lethargic HEENT: No sclera icterus. Extraocular movements grossly intact. Moist buccal mucosa. Head is atraumatic, normocephalic. Hears conversational speech. No nasal drainage. NECK: Supple without lymphadenopathy. CHEST: Non-labored respirations and equal bilateral excursions. CARDIOVASCULAR: Palpable 2+ radial pulses. ABDOMEN: Distended. Tympanic. MUSCULOSKELETAL: No clubbing or cyanosis. NEUROLOGIC: No focal or lateralizing signs. Cranial nerves II through XII grossly intact. SKIN: Well perfused. Good skin turgor. ASSESSMENT: 1. Ileus versus partial small bowel obstruction with abdominal pain and abdominal distention 2. Urinary retention and bilateral hydronephrosis status post Rich catheter placement 3. Acute kidney injury 4. Hyponatremia 5. Hyperkalemia 6. 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 Recent hip fracture status postsurgical repair 8. Moderate to severe aortic stenosis PLAN: -Continue to monitor -Continue NG tube for decompression -Keep patient n.p.o. -Continue ICU management -Continue supportive care -Continue IV fluids Physician Block Cutter note has been reviewed by physician. Signing provider agrees with the documented findings, assessment, and plan of care. Objective - Vital Signs Vital signs: Vital Signs Temp 98.1 F 12/16/23 04:00 Pulse 56 L 12/16/23 07:00 Resp 15 12/16/23 07:00 BP 117/54 12/15/23 23:45 Pulse Ox 98 12/16/23 07:00 FiO2 Intake & Output 12/15/23 12/16/23 12/16/23 18:59 06:59 18:59 Intake Total 1000 5163.132 5.412 Output Total 6525 2970 Balance -5525 2193.132 5.412 Weight 90.718 kg 102.2 kg Intake: IV 1000 0.9 1000 Intake, IV Titration 5163.132 5.412 Amount Norepinephrine 8 mg In 463.132 5.412 Sodium Chloride 0.9% 250 ml @ 0.03 MCG/KG/MIN 5. 266 mls/hr IV .Q24H [facility] Rx#:[id number] Piperacillin-Tazobactam 3 100 .375 gm In Sodium Chloride 0.9% 100 ml @ 25 mls/hr IVPB Q12H [facility] Rx# :[id number] Sodium Chloride 0.9% 1, 1100 000 ml @ 100 mls/hr IV . Q10H [facility] Rx#:[id number] Sodium Chloride 0.9% 1, 1000 000 ml @ 999 mls/hr IV . Q1H1M [facility] Rx#:[id number] Sodium Chloride 0.9% 1, 1000 000 ml @ 999 mls/hr IV . Q1H1M [facility] Rx#:[id number] Sodium Chloride 0.9% 1, 1000 000 ml @ 999 mls/hr IV . Q1H1M [facility] Rx#:[id number] Vancomycin 1,750 mg In 500 Sodium Chloride 0.9% 500 ml 500 ml @ 167 mls/hr IVPB ONCE [facility] Rx#: [id number] Output: Gastric Drainage 3300 350 Urine 3225 2620 Other: Voiding Method Indwelling Catheter ABP, PAP, CO, CI - Last Documented Arterial Blood Pressure 133/41 - Labs CBC & Chem 7: 12/16/23 05:27 12/16/23 05:27 Labs: Abnormal Lab Results - Last 24 Hours (Table) 12/15/23 12/15/23 12/15/23 Range/Units 11:21 11:21 14:35 WBC (3.8-10.6) k/uL RBC (4.30-5.90) m/uL Hgb (13.0-17.5) gm/dL Hct (39.0-53.0) % Plt Count (150-450) k/uL Neutrophils # (1.3-7.7) k/uL Lymphocytes # (1.0-4.8) k/uL PT 9.7 L (10.0-12.5) sec ABG pH (7.35-7.45) ABG pCO2 (35-45) mmHg Sodium 122 L 121 L (137-145) mmol/L Potassium 6.0 H 6.1 H* (3.5-5.1) mmol/L Chloride 79 L 85 L (98-107) mmol/L Carbon Dioxide 32 H (22-30) mmol/L BUN 83 H 83 H (9-20) mg/dL Creatinine 4.23 H 4.24 H (0.66-1.25) mg/dL Glucose 137 H 119 H (74-99) mg/dL POC Glucose (mg/dL) (70-110) mg/dL Calcium 8.2 L 7.6 L (8.4-10.2) mg/dL Phosphorus (2.5-4.5) mg/dL Magnesium (1.6-2.3) mg/dL Creatine Kinase (55-170) U/L Total Protein (6.3-8.2) g/dL Albumin 3.4 L (3.5-5.0) g/dL 12/15/23 12/15/23 12/16/23 Range/Units 18:26 18:26 00:01 WBC 10.7 H (3.8-10.6) k/uL RBC 2.69 L (4.30-5.90) m/uL Hgb 8.3 L D (13.0-17.5) gm/dL Hct 26.3 L (39.0-53.0) % Plt Count (150-450) k/uL Neutrophils # 9.5 H (1.3-7.7) k/uL Lymphocytes # 0.5 L (1.0-4.8) k/uL PT (10.0-12.5) sec ABG pH (7.35-7.45) ABG pCO2 (35-45) mmHg Sodium 123 L 128 L (137-145) mmol/L Potassium 5.3 H (3.5-5.1) mmol/L Chloride 93 L (98-107) mmol/L Carbon Dioxide 20 L (22-30) mmol/L BUN 83 H 69 H (9-20) mg/dL Creatinine 4.09 H 3.31 H (0.66-1.25) mg/dL Glucose 104 H 120 H (74-99) mg/dL POC Glucose (mg/dL) (70-110) mg/dL Calcium 7.4 L 7.3 L (8.4-10.2) mg/dL Phosphorus (2.5-4.5) mg/dL Magnesium 2.7 H 2.5 H (1.6-2.3) mg/dL Creatine Kinase (55-170) U/L Total Protein 5.0 L (6.3-8.2) g/dL Albumin 2.4 L (3.5-5.0) g/dL 12/16/23 12/16/23 12/16/23 Range/Units 00:20 00:26 05:27 WBC 11.7 H (3.8-10.6) k/uL RBC 2.86 L (4.30-5.90) m/uL Hgb 8.8 L (13.0-17.5) gm/dL Hct 27.7 L (39.0-53.0) % Plt Count 578 H (150-450) k/uL Neutrophils # 10.5 H (1.3-7.7) k/uL Lymphocytes # 0.5 L (1.0-4.8) k/uL PT (10.0-12.5) sec ABG pH 7.25 L (7.35-7.45) ABG pCO2 50 H (35-45) mmHg Sodium (137-145) mmol/L Potassium (3.5-5.1) mmol/L Chloride (98-107) mmol/L Carbon Dioxide (22-30) mmol/L BUN (9-20) mg/dL Creatinine (0.66-1.25) mg/dL Glucose (74-99) mg/dL POC Glucose (mg/dL) 136 H (70-110) mg/dL Calcium (8.4-10.2) mg/dL Phosphorus (2.5-4.5) mg/dL Magnesium (1.6-2.3) mg/dL Creatine Kinase (55-170) U/L Total Protein (6.3-8.2) g/dL Albumin (3.5-5.0) g/dL 12/16/23 Range/Units 05:27 WBC (3.8-10.6) k/uL RBC (4.30-5.90) m/uL Hgb (13.0-17.5) gm/dL Hct (39.0-53.0) % Plt Count (150-450) k/uL Neutrophils # (1.3-7.7) k/uL Lymphocytes # (1.0-4.8) k/uL PT (10.0-12.5) sec ABG pH (7.35-7.45) ABG pCO2 (35-45) mmHg Sodium 130 L (137-145) mmol/L Potassium 5.4 H (3.5-5.1) mmol/L Chloride (98-107) mmol/L Carbon Dioxide 20 L (22-30) mmol/L BUN 63 H (9-20) mg/dL Creatinine 2.73 H (0.66-1.25) mg/dL Glucose 126 H (74-99) mg/dL POC Glucose (mg/dL) (70-110) mg/dL Calcium 7.5 L (8.4-10.2) mg/dL Phosphorus 5.4 H (2.5-4.5) mg/dL Magnesium 2.5 H (1.6-2.3) mg/dL Creatine Kinase 1024 H* (55-170) U/L Total Protein 5.1 L (6.3-8.2) g/dL Albumin 2.4 L (3.5-5.0) g/dL
[2023-12-16] MEDS: PANTOPRAZOLE 40 MG/10 ML VIAL IV SCH (11:58)
[2023-12-16] MEDS: NICOTINE 21MG/24HR PATCH TRANSDERM SCH (11:58)
--- NOTE | 2023-12-16 13:02 | P.PN ---
Subjective Progress Note Date: 12/16/23 77-year-old male patient, presented to the hospital because of abdominal pain, nausea, emesis, abdominal distention along with weakness, and hypotension. He also noted diminished urine output. His last bowel movement was more than 2 days ago. He is not passing any flatus. He was not treated secondary for rehabilitation following a fall with a fracture requiring surgery. In the emergency, the patient was found to have an acute on top of chronic kidney injury. Rich catheter was inserted and the patient immediately produced around 1 L of urine output. Patient was also given an NG tube and a total of 2.5 L of gastric material was aspirated immediately. CAT scan of the abdomen and pelvis was done in the emergency and the patient was found to have fluid-filled esophagus with dilated gas and fluid-filled stomach. Patient also had dilated small bowel with air fluid levels. The distal small bowel appeared collapsed and there was no clear focal transition identified. No focal bowel wall t hickening or inflammatory changes. The small bowel measures up to 4.3 cm in size. Gas and stool was present in the large bowel. Appendix was normal. No evidence of interval pneumoperitoneum. Small bilateral pleural effusions along with compressive atelectasis in the lung bases were noted. Blood work showed an acute on top of chronic kidney injury. The patient's creatinine was up to 4.23 with a BUN of 83 and his sodium was 122 with a potassium level of 6 and a chloride was 79 with a bicarb level of 32. Normal LFTs. proBNP level is 468. Amylase and lipase are within normal limits. The white cell count of 14.5 with a hemoglobin 10.1 and a platelet of 511. Coagulation profile is within normal limits. Chest x-ray showed cardiomegaly with mild pulm vascular congestion. For now, the patient is being resuscitated with IV fluids. He is on normal saline at rate of 100 cc an hour. He is also on norepinephrine which is running at 0.15 mcg/kg/min. He is on oxygen at 3 L/min nasal cannula. Triple-lumen catheter was established and the intensive care unit along with an arterial li ne. General surgery is on the case. Nephrology is also on the case. 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 He is an ex-smoker. 12/16/2023, the patient is being seen for a follow-up. The patient is much more awake compared to yesterday. Noted the patient was aggressive resuscitative IV fluids and over the past 24 hours, the patient received a total of 6 L of IV fluids. Currently on normal saline at rate of 100 cc an hour. The patient required high doses of pressors overnight and norepinephrine was as high as 0.5 mcg/kg/min. Vasopressin was added and currently norepinephrine is down to 0.32 mcg/kg/min. He is much more awake and alert and is communicating. He is on 3 L of O2 nasal cannula. NG tube is still in place and the total amount of output is given in the order of 3.6 L since the tube was placed. Urine output is improving and the patient is producing around 100 cc an hour. No fever. No chills. White cell count 11.7 with hemoglobin 8.8 and a platelet count of 578. Sodium is at 130, BUN 63 with a creatinine of 2.7. The potassium levels of 5.4 and a serum bicarb is at 20. CPK is 1024. Axes are normal. Serum cortisol was 16.9. proBNP level was 1360. Lactic acid level was ordered and results are still pending for now. Troponins at 0.034. His previous echocardiogram showed moderate aortic stenosis and preserved LV function. He is currently on O2 at 3 L. Chest x-ray shows a triple-lumen catheter in the left subclavian. At the same time, the patient has increased pulm vascular markings and some early i nfiltration of the left perihilar area. Objective - Vital Signs Vital signs: Vital Signs Temp 98.1 F 12/16/23 04:00 Pulse 56 L 12/16/23 07:00 Resp 15 12/16/23 07:00 BP 117/54 12/15/23 23:45 Pulse Ox 98 12/16/23 07:00 FiO2 Intake & Output 12/15/23 12/16/23 12/16/23 18:59 06:59 18:59 Intake Total 1000 5163.132 5.412 Output Total 6525 2970 Balance -5525 2193.132 5.412 Weight 90.718 kg 102.2 kg Intake: IV 1000 0.9 1000 Intake, IV Titration 5163.132 5.412 Amount Norepinephrine 8 mg In 463.132 5.412 Sodium Chloride 0.9% 250 ml @ 0.03 MCG/KG/MIN 5. 266 mls/hr IV .Q24H [facility] Rx#:[id number] Piperacillin-Tazobactam 3 100 .375 gm In Sodium Chloride 0.9% 100 ml @ 25 mls/hr IVPB Q12H [facility] Rx# :[id number] Sodium Chloride 0.9% 1, 1100 000 ml @ 100 mls/hr IV . Q10H [facility] Rx#:[id number] Sodium Chloride 0.9% 1, 1000 000 ml @ 999 mls/hr IV . Q1H1M [facility] Rx#:[id number] Sodium Chloride 0.9% 1, 1000 000 ml @ 999 mls/hr IV . Q1H1M [facility] Rx#:[id number] Sodium Chloride 0.9% 1, 1000 000 ml @ 999 mls/hr IV . Q1H1M [facility] Rx#:[id number] Vancomycin 1,750 mg In 500 Sodium Chloride 0.9% 500 ml 500 ml @ 167 mls/hr IVPB ONCE [facility] Rx#: [id number] Output: Gastric Drainage 3300 350 Urine 3225 2620 Other: Voiding Method Indwelling Catheter ABP, PAP, CO, CI - Last Documented Arterial Blood Pressure 133/41 - Exam - Constitutional General appearance: no acute distress (The patient has an NG tube in place. No signs of an acute respiratory distress and the patient is currently on 3 L oxygen by nasal cannula.) the patient has an NG tube in place. Calm and comfor table. No acute distress. - EENT Eyes: EOMI Ears: negative: bulging, bullous, dull, erythema, fluid, myringotomy tube, obstructed by cerumen, scarring, unable to vistualize, other - Neck Neck: normal ROM Carotids: negative: upstroke normal, upstroke delayed, upstroke diminished, upstroke bounding, bruit absent, bruit present Thyroid: negative: normal size, enlarged, firm, nodule - Respiratory Respiratory: negative: CTA, diminished, dullness, rales, rhonchi, wheezing, prolonged expiration, prolonged inspiration, other - Cardiovascular Rhythm: regular Heart sounds: abnormal: S1, S2 Abnormal Heart Sounds: systolic murmur systolic murmur (2) Type: holo Location: apex Grade: III/ - Gastrointestinal General gastrointestinal: absent bowel sounds, distended Localized gastrointestinal: surgical scar: diffuse - Genitourinary Male genitourinary: enlarged prostate - Integumentary Integumentary: normal - Neurologic Neurologic: CNII-XII intact - Musculoskeletal Musculoskeletal: left sided weakness - Psychiatric Psychiatric: A&O x's 3 - Labs CBC & Chem 7: 12/16/23 05:27 12/16/23 05:27 Labs: Abnormal Lab Results - Last 24 Hours (Table) 12/15/23 12/15/23 12/15/23 Range/Units 10:41 11:21 11:21 WBC 14.5 H (3.8-10.6) k/uL RBC 3.19 L (4.30-5.90) m/uL Hgb 10.1 L (13.0-17.5) gm/dL Hct 30.3 L (39.0-53.0) % Plt Count 511 H (150-450) k/uL Neutrophils # 13.5 H (1.3-7.7) k/uL Lymphocytes # 0.2 L (1.0-4.8) k/uL PT 9.7 L (10.0-12.5) sec ABG pH (7.35-7.45) ABG pCO2 (35-45) mmHg Sodium 122 L (137-145) mmol/L Potassium 6.0 H (3.5-5.1) mmol/L Chloride 79 L (98-107) mmol/L Carbon Dioxide 32 H (22-30) mmol/L BUN 83 H (9-20) mg/dL Creatinine 4.23 H (0.66-1.25) mg/dL Glucose 137 H (74-99) mg/dL POC Glucose (mg/dL) (70-110) mg/dL Calcium 8.2 L (8.4-10.2) mg/dL Phosphorus (2.5-4.5) mg/dL Magnesium (1.6-2.3) mg/dL Creatine Kinase (55-170) U/L Total Protein (6.3-8.2) g/dL Albumin 3.4 L (3.5-5.0) g/dL 12/15/23 12/15/23 12/15/23 Range/Units 14:35 18:26 18:26 WBC 10.7 H (3.8-10.6) k/uL RBC 2.69 L (4.30-5.90) m/uL Hgb 8.3 L D (13.0-17.5) gm/dL Hct 26.3 L (39.0-53.0) % Plt Count (150-450) k/uL Neutrophils # 9.5 H (1.3-7.7) k/uL Lymphocytes # 0.5 L (1.0-4.8) k/uL PT (10.0-12.5) sec ABG pH (7.35-7.45) ABG pCO2 (35-45) mmHg Sodium 121 L 123 L (137-145) mmol/L Potassium 6.1 H* 5.3 H (3.5-5.1) mmol/L Chloride 85 L 93 L (98-107) mmol/L Carbon Dioxide (22-30) mmol/L BUN 83 H 83 H (9-20) mg/dL Creatinine 4.24 H 4.09 H (0.66-1.25) mg/dL Glucose 119 H 104 H (74-99) mg/dL POC Glucose (mg/dL) (70-110) mg/dL Calcium 7.6 L 7.4 L (8.4-10.2) mg/dL Phosphorus (2.5-4.5) mg/dL Magnesium 2.7 H (1.6-2.3) mg/dL Creatine Kinase (55-170) U/L Total Protein (6.3-8.2) g/dL Albumin (3.5-5.0) g/dL 12/16/23 12/16/23 12/16/23 Range/Units 00:01 00:20 00:26 WBC (3.8-10.6) k/uL RBC (4.30-5.90) m/uL Hgb (13.0-17.5) gm/dL Hct (39.0-53.0) % Plt Count (150-450) k/uL Neutrophils # (1.3-7.7) k/uL Lymphocytes # (1.0-4.8) k/uL PT (10.0-12.5) sec ABG pH 7.25 L (7.35-7.45) ABG pCO2 50 H (35-45) mmHg Sodium 128 L (137-145) mmol/L Potassium (3.5-5.1) mmol/L Chloride (98-107) mmol/L Carbon Dioxide 20 L (22-30) mmol/L BUN 69 H (9-20) mg/dL Creatinine 3.31 H (0.66-1.25) mg/dL Glucose 120 H (74-99) mg/dL POC Glucose (mg/dL) 136 H (70-110) mg/dL Calcium 7.3 L (8.4-10.2) mg/dL Phosphorus (2.5-4.5) mg/dL Magnesium 2.5 H (1.6-2.3) mg/dL Creatine Kinase (55-170) U/L Total Protein 5.0 L (6.3-8.2) g/dL Albumin 2.4 L (3.5-5.0) g/dL 12/16/23 12/16/23 Range/Units 05:27 05:27 WBC 11.7 H (3.8-10.6) k/uL RBC 2.86 L (4.30-5.90) m/uL Hgb 8.8 L (13.0-17.5) gm/dL Hct 27.7 L (39.0-53.0) % Plt Count 578 H (150-450) k/uL Neutrophils # 10.5 H (1.3-7.7) k/uL Lymphocytes # 0.5 L (1.0-4.8) k/uL PT (10.0-12.5) sec ABG pH (7.35-7.45) ABG pCO2 (35-45) mmHg Sodium 130 L (137-145) mmol/L Potassium 5.4 H (3.5-5.1) mmol/L Chloride (98-107) mmol/L Carbon Dioxide 20 L (22-30) mmol/L BUN 63 H (9-20) mg/dL Creatinine 2.73 H (0.66-1.25) mg/dL Glucose 126 H (74-99) mg/dL POC Glucose (mg/dL) (70-110) mg/dL Calcium 7.5 L (8.4-10.2) mg/dL Phosphorus 5.4 H (2.5-4.5) mg/dL Magnesium 2.5 H (1.6-2.3) mg/dL Creatine Kinase 1024 H* (55-170) U/L Total Protein 5.1 L (6.3-8.2) g/dL Albumin 2.4 L (3.5-5.0) g/dL Assessment and Plan Plan: Small bowel obstruction with secondary abdominal pain and distention. CAT scan of the abdomen shows evidence of small bowel obstruction/ileus without any transition point. Patient is status post NG tube insertion and decompression of the stomach with evacuation of around 3.5 L of gastric juice post NG tube insertion Acute kidney injury, along with evidence of hydronephrosis. Rule out obstructi ve uropathy as the patient has enlarged prostate with bilateral hydronephrosis. Rich catheter hasbeen inserted. Rule out hypovolemic induced ATN. The patient has been aggressively started on IV fluids and the patient is showing improvement in the creatinine level on today's evaluation with improvement in urine output. Acute hyperkalemia secondary to above, improving Moderately severe aortic stenosis Hypotension, likely hypovolemic in nature in addition to presence of a moderately severe aortic stenosis which probably contributed to his significant drop in the blood pressure. The patient is currently on norepinephrine and vasopressin physiologic dose as the patient is also being sustained IV fluids. Recent hip fracture status post ORIF History of CVA maintained on Plavix with some residual left-sided weakness Hyperlipidemia Anemia of chronic disease Acute hyponatremia in the setting of obstructive uropathy and renal failure, improving Plan Keep the patient in the intensive care unit Will continue maintenance of 100 cc an hour normal saline Rich catheter has been inserted Monitor urine output and the rest of the electrolytes Nephrology consultation Patient is currently on Zosyn. The patient was also given a dose of vancomycin overnight. This can be discontinued. Continue resuscitating this patient with pressors along with fluids. Norepinephrine is running and the dose will be titrated to maintain a pressure mean above 65 Lines has been inserted and achieved including a triple-lumen catheter General Surgery consultation Keep the NG tube in place . Previous echocardiogram has been noted. Will continue to follow make further recommendations based on progress.
--- NOTE | 2023-12-16 13:39 | CA ---
Transthoracic Echo Report Name: Chevy French Age: 77 Gender: M : 1945 Exam Date: 12/16/2023 09:53 Exam Location: [facility] Ht (in): 69 Wt (lb): 225 Ordering Physician: Kyle Morton MD Attending/Referring Phys: Sterilization Tech Renetta Mercado RDCS Procedure CPT: Indications: persistent hypotension Cardiac Hx: Technical Quality: Very technically difficult study Contrast 1: Definity Total Dose (mL): 2 Contrast 2: Total Dose (mL): MEASUREMENTS (Male / Female) Normal Values 2D ECHO LVOT Diameter 2.2 cm LV Diastolic Volume MOD BP 140.8 cm??? 67 - 155 / 56 - 104 cm??? LV Systolic Volume MOD BP 41.3 cm??? 22 - 58 / 19 - 49 cm??? LV Ejection Fraction MOD BP 70.7 % >= 55 % LV Cardiac Index MOD BP 2725.0 cm???/min???m??? LV Diastolic Volume MOD 4C 150.5 cm??? LV Systolic Volume MOD 4C 40.9 cm??? LV Ejection Fraction MOD 4C 72.8 % LV Cardiac Index MOD 4C 3002.6 cm???/min???m??? LV Diastolic Length 4C 8.4 cm LV Systolic Length 4C 6.0 cm LV Diastolic Volume MOD 2C 129.9 cm??? LV Systolic Volume MOD 2C 40.0 cm??? LV Ejection Fraction MOD 2C 69.2 % LV Cardiac Index MOD 2C 2462.1 cm???/min???m??? LV Diastolic Length 2C 8.2 cm LV Systolic Length 2C 5.7 cm LA Volume 98.4 cm??? 18 - 58 / 22 - 52 cm??? LA Volume Index 43.5 cm???/m??? 16 - 28 cm???/m??? DOPPLER AV Peak Velocity 354.7 cm/s AV Peak Gradient 50.3 mmHg AV Mean Velocity 229.9 cm/s AV Mean Gradient 24.7 mmHg AV Velocity Time Integral 84.9 cm LVOT Peak Velocity 136.5 cm/s LVOT Peak Gradient 7.4 mmHg LVOT Velocity Time Integral 31.5 cm LVOT Stroke Volume 115.9 cm??? LVOT Stroke Volume Index 53.4 ml/m??? LVOT Cardiac Index 3174.2 cm???/min???m??? AV Area Cont Eq vti 1.4 cm??? AV Area Cont Eq pk 1.4 cm??? MV Peak Velocity 140.0 cm/s MV Peak Gradient 7.8 mmHg MV Mean Velocity 70.6 cm/s MV Mean Gradient 2.5 mmHg MV Velocity Time Integral 43.8 cm TR Peak Velocity 233.8 cm/s TR Peak Gradient 21.9 mmHg Right Atrial Pressure 10.0 mmHg Pulmonary Artery Systolic Pressu 31.9 mmHg Right Ventricular Systolic Press 31.9 mmHg FINDINGS Left Ventricle Left ventricular ejection fraction is estimated at 60-65 %. Left ventricular cavity size normal. No obvious regional wall motion abnormalities. Right Ventricle Right ventricle not well visualized. Right ventricular systolic pressure within normal limits. Right Atrium Right atrium not well visualized. Left Atrium Severely increased left atrial volume. Mildly increased left atrial area. Mitral Valve Structurally normal mitral valve. No mitral stenosis, regurgitation or prolapse. Aortic Valve Aortic valve not well visualized. Moderate aortic stenosis with a mean gradient Tricuspid Valve Structurally normal tricuspid valve. No tricuspid stenosis. Trace to mild tricuspid regurgitation. Pulmonic Valve Pulmonic valve not well visualized. Pericardium No pericardial effusion. Aorta Aortic root and proximal ascending aorta not well visualized. CONCLUSIONS Diagnosis: Persistent hypertension, possible cardiogenic shock Normal LV size and function ejection fraction 60% Mild-moderate aortic stenosis Previewed by: Dr. Ziggy Cagle MD (Electronically Signed) Final Date: 16 December 2023 13:39
--- NOTE | 2023-12-16 13:59 | XR ---
EXAMINATION TYPE: XR chest 1V portable DATE OF EXAM: 12/16/2023 COMPARISON: 12/15/2023 INDICATION: Nasogastric tube placement TECHNIQUE: Single frontal view of the chest is obtained. FINDINGS: The heart size is enlarged. The pulmonary vasculature is normal. Mild left lower lobe infiltrate is present. Correlate for atelectasis or pneumonia. Findings are wors ening from comparison. Left central venous catheter tip is within the superior vena cava region. The gastric tube tip is out of field of view within the left upper quadrant of the abdomen. IMPRESSION: 1. Worsening infiltrate left lower lobe. Correlate for atelectasis or pneumonia. 2. Nasogastric tube placement with the tip in the left upper quadrant abdomen. 3. Cardiomegaly [facility], , 12/16/2023 1:57 PM
[2023-12-16 14:09] LABS: African American GFR (CKD) 36 (>60 ml/min/1.73 sqM); Anion Gap 4 mmol/L; Blood Urea Nitrogen 52 mg/dL (9-20); Calcium 7.7 mg/dL (8.4-10.2); Carbon Dioxide 21 mmol/L (22-30); Chloride 108 mmol/L (98-107); Glucose 112 mg/dL (74-99); Non-African American GFR(CKD) 31 (>60 ml/min/1.73 sqM); Sodium 133 mmol/L (137-145)
[2023-12-16] MEDS: SODIUM CHLORIDE 0.45% 1,000 ML IV SCH (14:19)
--- NOTE | 2023-12-16 16:51 | P.PN ---
Subjective Progress Note Date: 12/16/23 Chevy French, is a 77-year-old male who presented to [facility] emergency room due to abdominal pain and generalized weakness and hypotension. Patient was recently admitted to [facility] after sustaining a fall and having femur fracture he underwent surgery and was transferred [facility]. He was evaluated in the emergency room vital examination on presentation revealed a temperature of 98.7 pulse 80 respiration 30 blood pressure 80/53 pulse ox 97% on 5 L nasal cannula Laboratory data revealed a white blood count of 14.5 hemoglobin 10.1 platelet count 511 sodium 122 potassium 6.0 chloride 79 BUN 83 creatinine 4.23 Testing in the emergency room revealed chest x-ray revealed low lung volumes with generalized hazy appearance which could represent atelectasis versus pulmonary edema, CT scan of the abdomen revealed dilated small bowel loops and stomach without clear focal transition point, and significantly distended urinary bladder with bilateral hydronephrosis. Patient was admitted to medical floor for further evaluation and treatment On 12/16/2023 patient was seen and examined in the ICU, he is alert and oriented in no distress, he is maintained on blood pressure support, triple lumen and arterial line inserted, patient is followed by critical care, he denies any chest pain, or shortness of breath, munoz catheter inserted yesterday, kidney function improving. Objective - Vital Signs Vital signs: Vital Signs Temp 98.1 F 12/16/23 04:00 Pulse 56 L 12/16/23 07:00 Resp 15 12/16/23 07:00 BP 117/54 12/15/23 23:45 Pulse Ox 98 12/16/23 07:00 FiO2 Intake & Output 12/15/23 12/16/23 12/16/23 18:59 06:59 18:59 Intake Total 1000 5163.132 5.412 Output Total 6525 2970 Balance -5525 2193.132 5.412 Weight 90.718 kg 102.2 kg Intake: IV 1000 0.9 1000 Intake, IV Titration 5163.132 5.412 Amount Norepinephrine 8 mg In 463.132 5.412 Sodium Chloride 0.9% 250 ml @ 0.03 MCG/KG/MIN 5. 266 mls/hr IV .Q24H [facility] Rx#:[id number] Piperacillin-Tazobactam 3 100 .375 gm In Sodium Chloride 0.9% 100 ml @ 25 mls/hr IVPB Q12H [facility] Rx# :[id number] Sodium Chloride 0.9% 1, 1100 000 ml @ 100 mls/hr IV . Q10H [facility] Rx#:[id number] Sodium Chloride 0.9% 1, 1000 000 ml @ 999 mls/hr IV . Q1H1M [facility] Rx#:[id number] Sodium Chloride 0.9% 1, 1000 000 ml @ 999 mls/hr IV . Q1H1M [facility] Rx#:[id number] Sodium Chloride 0.9% 1, 1000 000 ml @ 999 mls/hr IV . Q1H1M [facility] Rx#:[id number] Vancomycin 1,750 mg In 500 Sodium Chloride 0.9% 500 ml 500 ml @ 167 mls/hr IVPB ONCE [facility] Rx#: [id number] Output: Gastric Drainage 3300 350 Urine 3225 2620 Other: Voiding Method Indwelling Catheter ABP, PAP, CO, CI - Last Documented Arterial Blood Pressure 133/41 - Exam In general patient is alert and oriented x 3 in no distress HEENT head normocephalic and atraumatic Neck is supple no JVD no goiter no lymphadenopathy no carotid bruit Chest examination is clear to auscultation no crackles no wheezing Cardiac exam reveals regular heart sounds S1 and S2 no gallops no murmurs Abdomen is soft with mild diffuse tenderness no organomegaly no palpable masses with sluggish bowel sounds Extremity exam reveals no edema no cyanosis or clubbing Neurological examination reveals no gross focal deficits - Labs CBC & Chem 7: 12/16/23 05:27 12/16/23 13:00 Labs: Abnormal Lab Results - Last 24 Hours (Table) 12/15/23 12/15/23 12/15/23 Range/Units 10:41 11:21 11:21 WBC 14.5 H (3.8-10.6) k/uL RBC 3.19 L (4.30-5.90) m/uL Hgb 10.1 L (13.0-17.5) gm/dL Hct 30.3 L (39.0-53.0) % Plt Count 511 H (150-450) k/uL Neutrophils # 13.5 H (1.3-7.7) k/uL Lymphocytes # 0.2 L (1.0-4.8) k/uL PT 9.7 L (10.0-12.5) sec ABG pH (7.35-7.45) ABG pCO2 (35-45) mmHg Sodium 122 L (137-145) mmol/L Potassium 6.0 H (3.5-5.1) mmol/L Chloride 79 L (98-107) mmol/L Carbon Dioxide 32 H (22-30) mmol/L BUN 83 H (9-20) mg/dL Creatinine 4.23 H (0.66-1.25) mg/dL Glucose 137 H (74-99) mg/dL POC Glucose (mg/dL) (70-110) mg/dL Calcium 8.2 L (8.4-10.2) mg/dL Phosphorus (2.5-4.5) mg/dL Magnesium (1.6-2.3) mg/dL Creatine Kinase (55-170) U/L Total Protein (6.3-8.2) g/dL Albumin 3.4 L (3.5-5.0) g/dL 12/15/23 12/15/23 12/15/23 Range/Units 14:35 18:26 18:26 WBC 10.7 H (3.8-10.6) k/uL RBC 2.69 L (4.30-5.90) m/uL Hgb 8.3 L D (13.0-17.5) gm/dL Hct 26.3 L (39.0-53.0) % Plt Count (150-450) k/uL Neutrophils # 9.5 H (1.3-7.7) k/uL Lymphocytes # 0.5 L (1.0-4.8) k/uL PT (10.0-12.5) sec ABG pH (7.35-7.45) ABG pCO2 (35-45) mmHg Sodium 121 L 123 L (137-145) mmol/L Potassium 6.1 H* 5.3 H (3.5-5.1) mmol/L Chloride 85 L 93 L (98-107) mmol/L Carbon Dioxide (22-30) mmol/L BUN 83 H 83 H (9-20) mg/dL Creatinine 4.24 H 4.09 H (0.66-1.25) mg/dL Glucose 119 H 104 H (74-99) mg/dL POC Glucose (mg/dL) (70-110) mg/dL Calcium 7.6 L 7.4 L (8.4-10.2) mg/dL Phosphorus (2.5-4.5) mg/dL Magnesium 2.7 H (1.6-2.3) mg/dL Creatine Kinase (55-170) U/L Total Protein (6.3-8.2) g/dL Albumin (3.5-5.0) g/dL 12/16/23 12/16/23 12/16/23 Range/Units 00:01 00:20 00:26 WBC (3.8-10.6) k/uL RBC (4.30-5.90) m/uL Hgb (13.0-17.5) gm/dL Hct (39.0-53.0) % Plt Count (150-450) k/uL Neutrophils # (1.3-7.7) k/uL Lymphocytes # (1.0-4.8) k/uL PT (10.0-12.5) sec ABG pH 7.25 L (7.35-7.45) ABG pCO2 50 H (35-45) mmHg Sodium 128 L (137-145) mmol/L Potassium (3.5-5.1) mmol/L Chloride (98-107) mmol/L Carbon Dioxide 20 L (22-30) mmol/L BUN 69 H (9-20) mg/dL Creatinine 3.31 H (0.66-1.25) mg/dL Glucose 120 H (74-99) mg/dL POC Glucose (mg/dL) 136 H (70-110) mg/dL Calcium 7.3 L (8.4-10.2) mg/dL Phosphorus (2.5-4.5) mg/dL Magnesium 2.5 H (1.6-2.3) mg/dL Creatine Kinase (55-170) U/L Total Protein 5.0 L (6.3-8.2) g/dL Albumin 2.4 L (3.5-5.0) g/dL 12/16/23 12/16/23 Range/Units 05:27 05:27 WBC 11.7 H (3.8-10.6) k/uL RBC 2.86 L (4.30-5.90) m/uL Hgb 8.8 L (13.0-17.5) gm/dL Hct 27.7 L (39.0-53.0) % Plt Count 578 H (150-450) k/uL Neutrophils # 10.5 H (1.3-7.7) k/uL Lymphocytes # 0.5 L (1.0-4.8) k/uL PT (10.0-12.5) sec ABG pH (7.35-7.45) ABG pCO2 (35-45) mmHg Sodium 130 L (137-145) mmol/L Potassium 5.4 H (3.5-5.1) mmol/L Chloride (98-107) mmol/L Carbon Dioxide 20 L (22-30) mmol/L BUN 63 H (9-20) mg/dL Creatinine 2.73 H (0.66-1.25) mg/dL Glucose 126 H (74-99) mg/dL POC Glucose (mg/dL) (70-110) mg/dL Calcium 7.5 L (8.4-10.2) mg/dL Phosphorus 5.4 H (2.5-4.5) mg/dL Magnesium 2.5 H (1.6-2.3) mg/dL Creatine Kinase 1024 H* (55-170) U/L Total Protein 5.1 L (6.3-8.2) g/dL Albumin 2.4 L (3.5-5.0) g/dL Assessment and Plan Plan: Abdominal pain Dilated small bowels with possible ileus versus partial small bowel obstruction Urinary retention Hypotension Severe hyponatremia Acute kidney injury Electrolyte imbalance with severe hyperkalemia Leukocytosis Recent fall with right femur fracture with surgical repair At this time patient is admitted to medical floor Munoz catheter was inserted in the emergency room He was started on IV fluid Nephrology and urology consultation were requested For DVT prophylaxis subcu Pamx Will follow closely
[2023-12-16 18:08] LABS: African American GFR (CKD) 42 (>60 ml/min/1.73 sqM); Anion Gap 6 mmol/L; Blood Urea Nitrogen 47 mg/dL (9-20); Calcium 7.7 mg/dL (8.4-10.2); Carbon Dioxide 23 mmol/L (22-30); Chloride 106 mmol/L (98-107); Glucose 114 mg/dL (74-99); Non-African American GFR(CKD) 36 (>60 ml/min/1.73 sqM); Potassium 4.8 mmol/L (3.5-5.1); Sodium 135 mmol/L (137-145)
[2023-12-17 04:02] LABS: ALT 19 U/L (4-49); AST 41 U/L (17-59); African American GFR (CKD) 63 (>60 ml/min/1.73 sqM); Albumin 2.4 g/dL (3.5-5.0); Alkaline Phosphatase 86 U/L (38-126); Anion Gap 3 mmol/L; Blood Urea Nitrogen 38 mg/dL (9-20); Calcium 7.9 mg/dL (8.4-10.2); Carbon Dioxide 24 mmol/L (22-30); Chloride 108 mmol/L (98-107); Glucose 105 mg/dL (74-99); Non-African American GFR(CKD) 54 (>60 ml/min/1.73 sqM); Potassium 4.8 mmol/L (3.5-5.1); Sodium 135 mmol/L (137-145); Total Bilirubin 0.4 mg/dL (0.2-1.3); Total Protein 4.9 g/dL (6.3-8.2)
[2023-12-17 06:41] LABS: Basophils % (A) 0 %; Eosinophils % (A) 1 %; HCT 24.3 % (39.0-53.0); HGB 7.6 gm/dL (13.0-17.5); Hypochromasia Slight; Lymphocytes # (A) 0.6 k/uL (1.0-4.8); Lymphocytes % (A) 8 %; MCHC 31.2 g/dL (31.0-37.0); MCV 99.5 fL (80.0-100.0); Mean Platelet Volume 7.6; Monocytes # (A) 0.5 k/uL (0-1.0); Monocytes % (A) 7 %; Neutrophils # (A) 6.4 k/uL (1.3-7.7); Neutrophils % (A) 84 %; Platelet Count 398 k/uL (150-450); RBC 2.44 m/uL (4.30-5.90); RDW 13.3 % (11.5-15.5); WBC 7.6 k/uL (3.8-10.6)
--- NOTE | 2023-12-17 09:32 | P.PN ---
Subjective Progress Note Date: 12/17/23 Chevy French, is a 77-year-old male who presented to [facility] emergency room due to abdominal pain and generalized weakness and hypotension. Patient was recently admitted to [facility] after sustaining a fall and having femur fracture he underwent surgery and was transferred to group home for rehab. He was evaluated in the emergency room vital examination on presentation revealed a temperature of 98.7 pulse 80 respiration 30 blood pressure 80/53 pulse ox 97% on 5 L nasal cannula Laboratory data revealed a white blood count of 14.5 hemoglobin 10.1 platelet count 511 sodium 122 potassium 6.0 chloride 79 BUN 83 creatinine 4.23 Testing in the emergency room revealed chest x-ray revealed low lung volumes with generalized hazy appearance which could represent atelectasis versus pulmonary edema, CT scan of the abdomen revealed dilated small bowel loops and stomach without clear focal transition point, and significantly distended urinary bladder with bilateral hydronephrosis. Patient was admitted to medical floor for further evaluation and treatment On 12/16/2023 patient was seen and examined in the ICU, he is alert and oriented in no distress, he is maintained on blood pressure support, triple lumen and arterial line inserted, patient is followed by critical care, he denies any chest pain, or shortness of breath, munoz catheter inserted yesterday, kidney function improving. On 12/17/2023 patient is alert and oriented. Patient remains in the ICU pressure supporting medication. Creatinine improving to 1.28 bun 38 potassium 4.8 sodium 135.current vital signs temp 98.1, heart rate 60, respiratory rate 20, blood pressure 1 today knee 6/41 with pulse ox of96% on 4 L. Patient remains with NG tube nothing by mouth Objective - Vital Signs Vital signs: Vital Signs Temp 98.1 F 12/17/23 05:00 Pulse 72 12/17/23 07:00 Resp 25 H 12/17/23 07:00 BP 112/52 12/16/23 12:00 Pulse Ox 96 12/17/23 07:00 FiO2 Intake & Output 12/16/23 12/17/23 12/17/23 18:59 06:59 18:59 Intake Total 2211.272 3319.354 138.426 Output Total 2620 2275 150 Balance -1574.372 -360.646 -11.574 Weight 102.2 kg 99.7 kg Intake: IV 500 1560 130 Sodium Chloride 0.45% 1, 500 1560 130 000 ml @ 130 mls/hr IV . Q7H42M [facility] Rx#:[id number] Intake, IV Titration 545.628 354.354 8.426 Amount Norepinephrine 8 mg In 394.628 309.142 8.426 Sodium Chloride 0.9% 250 ml @ 0.03 MCG/KG/MIN 5. 266 mls/hr IV .Q24H [facility] Rx#:[id number] Piperacillin-Tazobactam 3 100 .375 gm In Sodium Chloride 0.9% 100 ml @ 25 mls/hr IVPB Q8H [facility] Rx#: [id number] Vasopressin 20 unit In 51 45.212 Sodium Chloride 0.9% 50 ml @ 0.03 UNITS/MIN 4.59 mls/hr IV .Q11H7M [facility] Rx# :[id number] Output: Gastric Drainage 100 Urine 2620 2175 150 Other: Voiding Method Indwelling Catheter Indwelling Catheter # Bowel Movements 1 ABP, PAP, CO, CI - Last Documented Arterial Blood Pressure 136/39 - Exam In general patient is alert and oriented x 3 in no distress HEENT head normocephalic and atraumatic Neck is supple no JVD no goiter no lymphadenopathy no carotid bruit Chest examination is clear to auscultation no crackles no wheezing Cardiac exam reveals regular heart sounds S1 and S2 no gallops no murmurs Abdomen is soft with mild diffuse tenderness no organomegaly no palpable masses with sluggish bowel sounds Extremity exam reveals no edema no cyanosis or clubbing Neurological examination reveals no gross focal deficits - Labs CBC & Chem 7: 12/17/23 02:57 12/17/23 02:57 Labs: Abnormal Lab Results - Last 24 Hours (Table) 12/16/23 12/16/23 12/16/23 Range/Units 11:46 13:00 17:24 RBC (4.30-5.90) m/uL Hgb (13.0-17.5) gm/dL Hct (39.0-53.0) % Lymphocytes # (1.0-4.8) k/uL Sodium 133 L 135 L (137-145) mmol/L Chloride 108 H (98-107) mmol/L Carbon Dioxide 21 L (22-30) mmol/L BUN 52 H 47 H (9-20) mg/dL Creatinine 2.03 H 1.79 H (0.66-1.25) mg/dL Glucose 112 H 114 H (74-99) mg/dL Plasma Lactic Acid Ayad 0.5 L (0.7-2.0) mmol/L Calcium 7.7 L 7.7 L (8.4-10.2) mg/dL Total Protein (6.3-8.2) g/dL Albumin (3.5-5.0) g/dL 12/16/23 12/17/23 12/17/23 Range/Units 21:00 02:57 02:57 RBC 2.44 L (4.30-5.90) m/uL Hgb 7.6 L (13.0-17.5) gm/dL Hct 24.3 L (39.0-53.0) % Lymphocytes # 0.6 L (1.0-4.8) k/uL Sodium 135 L 135 L (137-145) mmol/L Chloride 108 H (98-107) mmol/L Carbon Dioxide (22-30) mmol/L BUN 38 H (9-20) mg/dL Creatinine 1.28 H (0.66-1.25) mg/dL Glucose 105 H (74-99) mg/dL Plasma Lactic Acid Ayad (0.7-2.0) mmol/L Calcium 7.9 L (8.4-10.2) mg/dL Total Protein 4.9 L (6.3-8.2) g/dL Albumin 2.4 L (3.5-5.0) g/dL Assessment and Plan Plan: Abdominal pain Dilated small bowels with possible ileus versus partial small bowel obstruction Urinary retention Hypotension Severe hyponatremia Acute kidney injury Electrolyte imbalance with severe hyperkalemia Leukocytosis Recent fall with right femur fracture with surgical repair At this time patient is admitted to medical floor Munoz catheter was inserted in the emergency room He was started on IV fluid Nephrology and urology consultation were requested For DVT prophylaxis subcu Lovenox Will follow closely
[2023-12-17] MEDS: ENOXAPARIN 40 MG/0.4 ML SYRINGE SQ SCH (10:11)
[2023-12-17] MEDS: SODIUM CHLORIDE 0.9% 1,000 ML IV SCH (10:12)
--- NOTE | 2023-12-17 10:36 | P.PN ---
Subjective Patient is seen in follow-up for acute kidney injury. Renal function improving. Nonoliguric. Receiving IV fluids. Remains on vasopressors. Vital signs are stable. On vasopressor support. General: Resting in bed. HEENT: NG tube noted. LUNGS: Scattered rhonchi. HEART: Rate and Rhythm are regular. ABDOMEN: Nontender. Distention noted. EXTREMITITES: No edema. Objective - Vital Signs Vital signs: Vital Signs Temp 98.2 F 12/17/23 08:00 Pulse 79 12/17/23 10:15 Resp 15 12/17/23 10:15 BP 118/47 12/17/23 10:15 Pulse Ox 97 12/17/23 10:15 FiO2 Intake & Output 12/16/23 12/17/23 12/17/23 18:59 06:59 18:59 Intake Total 9389.640 1833.354 497.496 Output Total 2620 2275 555 Balance -1574.372 -360.646 -57.504 Weight 102.2 kg 99.7 kg Intake: IV 500 1560 460 Piperacillin-Tazobactam 3 100 .375 gm In Sodium Chloride 0.9% 100 ml @ 25 mls/hr IVPB Q8H [facility] Rx#: [id number] Sodium Chloride 0.45% 1, 500 1560 310 000 ml @ 50 mls/hr IV . Q20H [facility] Rx#:[id number] Sodium Chloride 0.9% 1, 50 000 ml @ 50 mls/hr IV . Q20H [facility] Rx#:[id number] Intake, IV Titration 545.628 354.354 37.496 Amount Norepinephrine 8 mg In 394.628 309.142 8.426 Sodium Chloride 0.9% 250 ml @ 0.03 MCG/KG/MIN 5. 266 mls/hr IV .Q24H [facility] Rx#:[id number] Piperacillin-Tazobactam 3 100 .375 gm In Sodium Chloride 0.9% 100 ml @ 25 mls/hr IVPB Q8H [facility] Rx#: [id number] Vasopressin 20 unit In 51 45.212 29.07 Sodium Chloride 0.9% 50 ml @ 0.03 UNITS/MIN 4.59 mls/hr IV .Q11H7M [facility] Rx# :[id number] Output: Gastric Drainage 100 Urine 2620 2175 555 Other: Voiding Method Indwelling Catheter Indwelling Catheter # Bowel Movements 1 ABP, PAP, CO, CI - Last Documented Arterial Blood Pressure 141/49 - Labs CBC & Chem 7: 12/17/23 02:57 12/17/23 02:57 Labs: Abnormal Lab Results - Last 24 Hours (Table) 12/16/23 12/16/23 12/16/23 Range/Units 11:46 13:00 17:24 RBC (4.30-5.90) m/uL Hgb (13.0-17.5) gm/dL Hct (39.0-53.0) % Lymphocytes # (1.0-4.8) k/uL Sodium 133 L 135 L (137-145) mmol/L Chloride 108 H (98-107) mmol/L Carbon Dioxide 21 L (22-30) mmol/L BUN 52 H 47 H (9-20) mg/dL Creatinine 2.03 H 1.79 H (0.66-1.25) mg/dL Glucose 112 H 114 H (74-99) mg/dL Plasma Lactic Acid Ayad 0.5 L (0.7-2.0) mmol/L Calcium 7.7 L 7.7 L (8.4-10.2) mg/dL Total Protein (6.3-8.2) g/dL Albumin (3.5-5.0) g/dL 12/16/23 12/17/23 12/17/23 Range/Units 21:00 02:57 02:57 RBC 2.44 L (4.30-5.90) m/uL Hgb 7.6 L (13.0-17.5) gm/dL Hct 24.3 L (39.0-53.0) % Lymphocytes # 0.6 L (1.0-4.8) k/uL Sodium 135 L 135 L (137-145) mmol/L Chloride 108 H (98-107) mmol/L Carbon Dioxide (22-30) mmol/L BUN 38 H (9-20) mg/dL Creatinine 1.28 H (0.66-1.25) mg/dL Glucose 105 H (74-99) mg/dL Plasma Lactic Acid Ayad (0.7-2.0) mmol/L Calcium 7.9 L (8.4-10.2) mg/dL Total Protein 4.9 L (6.3-8.2) g/dL Albumin 2.4 L (3.5-5.0) g/dL Assessment and Plan Plan: Assessment: 1. Acute kidney injury secondary to ATN secondary to hypotension and urinary retention. Creatinine 4.23 on admission and is improved to 1.28 today. Creatinine0.9 dated November 30, 2023. 2. Bilateral hydronephrosis and urinary retention. Currently has Rich catheter. Seen by urology. No interventions planned at this time. Voiding trial prior to discharge. 3. Hyponatremia secondary to acute kidney injury and urinary retention. Further worsened with the use of thiazide diuretic outpatient. Improved. 4. Abdominal pain. Ileus versus bowel obstruction. Surgery following. 5. Chronic diastolic CHF and moderate aortic stenosis. 6. Hyperkalemia secondary to acute kidney injury, urinary retention and use of SELINA inhibitor. Improved. 7. Recent hip fracture status post surgical repair. 8. Shock maintained on vasopressors. Plan: Change fluids to normal saline at 50 cc an hour. Maintain Rich catheter. Avoid nephrotoxins. Wean vasopressors. Continue to monitor renal function and urine output. Cortisol level not low. Continue to monitor renal function and urine output.
[2023-12-17] MEDS: HYDROcodone/APAP 5-325MG 1 EACH TAB PO PRN (11:21)
--- NOTE | 2023-12-17 13:05 | P.PN ---
Subjective Progress Note Date: 12/17/23 CHIEF COMPLAINT: Abdominal pain HISTORY OF PRESENT ILLNESS: Patient remains in the ICU. He is on 2 blood pressure support medications. They are working on weaning down on the Levophed. Patient did have a bowel movement last night. NG tube with 100 mL output during the night. Patient does report some mild abdominal pain. Denies any nausea. Afebrile. WBC 7.6 Hgb 7.6 and platelets 398. Sodium 135 creatinine is down from 1.79-1.28. Critical care service has clamped NG tube. PHYSICAL EXAM: VITAL SIGNS: Reviewed GENERAL: no acute distress. Patient is lethargic HEENT: No sclera icterus. Extraocular movements grossly intact. Moist buccal mucosa. Head is atraumatic, normocephalic. Hears conversational speech. No nasal drainage. NECK: Supple without lymphadenopathy. CHEST: Non-labored respirations and equal bilateral excursions. CARDIOVASCULAR: Palpable 2+ radial pulses. ABDOMEN: Soft. Mild discomfort with palpation of upper abdomen. Distended. Tympanic. MUSCULOSKELETAL: No clubbing or cyanosis. NEUROLOGIC: No focal or lateralizing signs. Cranial nerves II through XII gr ossly intact. SKIN: Well perfused. Good skin turgor. ASSESSMENT: 1. Ileus versus partial small bowel obstruction with abdominal pain and abdominal distention 2. Urinary retention and bilateral hydronephrosis status post Rich catheter placement 3. Acute kidney injury 4. Hyponatremia 5. Hyperkalemia 6. 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 Recent hip fracture status postsurgical repair 8. Moderate to severe aortic stenosis PLAN: -Abdominal x-ray ordered for follow-up on ileus -Continue to monitor -Continue NG tube for decompression -Keep patient n.p.o. for now -Continue supportive care -Continue IV fluids Physician Field Service Specialist note has been reviewed by physician. Signing provider agrees with the documented findings, assessment, and plan of care. Objective - Vital Signs Vital signs: Vital Signs Temp 98.2 F 12/17/23 08:00 Pulse 98 12/17/23 11:45 Resp 22 12/17/23 11:45 BP 118/47 12/17/23 11:45 Pulse Ox 89 L 12/17/23 11:45 FiO2 Intake & Output 12/16/23 12/17/23 12/17/23 18:59 06:59 18:59 Intake Total 7595.026 0605.354 597.496 Output Total 2620 2275 830 Balance -1574.372 -360.646 -232.504 Weight 102.2 kg 99.7 kg Intake: IV 500 1560 560 Piperacillin-Tazobactam 3 100 .375 gm In Sodium Chloride 0.9% 100 ml @ 25 mls/hr IVPB Q8H [facility] Rx#: [id number] Sodium Chloride 0.45% 1, 500 1560 310 000 ml @ 50 mls/hr IV . Q20H [facility] Rx#:[id number] Sodium Chloride 0.9% 1, 150 000 ml @ 50 mls/hr IV . Q20H [facility] Rx#:[id number] Intake, IV Titration 545.628 354.354 37.496 Amount Norepinephrine 8 mg In 394.628 309.142 8.426 Sodium Chloride 0.9% 250 ml @ 0.03 MCG/KG/MIN 5. 266 mls/hr IV .Q24H [facility] Rx#:[id number] Piperacillin-Tazobactam 3 100 .375 gm In Sodium Chloride 0.9% 100 ml @ 25 mls/hr IVPB Q8H [facility] Rx#: [id number] Vasopressin 20 unit In 51 45.212 29.07 Sodium Chloride 0.9% 50 ml @ 0.03 UNITS/MIN 4.59 mls/hr IV .Q11H7M [facility] Rx# :[id number] Output: Gastric Drainage 100 Urine 2620 2175 830 Other: Voiding Method Indwelling Catheter Indwelling Catheter Indwelling Catheter # Bowel Movements 1 ABP, PAP, CO, CI - Last Documented Arterial Blood Pressure 117/46 - Labs CBC & Chem 7: 12/17/23 02:57 12/17/23 02:57 Labs: Abnormal Lab Results - Last 24 Hours (Table) 12/16/23 12/16/23 12/16/23 Range/Units 13:00 17:24 21:00 RBC (4.30-5.90) m/uL Hgb (13.0-17.5) gm/dL Hct (39.0-53.0) % Lymphocytes # (1.0-4.8) k/uL Sodium 133 L 135 L 135 L (137-145) mmol/L Chloride 108 H (98-107) mmol/L Carbon Dioxide 21 L (22-30) mmol/L BUN 52 H 47 H (9-20) mg/dL Creatinine 2.03 H 1.79 H (0.66-1.25) mg/dL Glucose 112 H 114 H (74-99) mg/dL Calcium 7.7 L 7.7 L (8.4-10.2) mg/dL Total Protein (6.3-8.2) g/dL Albumin (3.5-5.0) g/dL 12/17/23 12/17/23 Range/Units 02:57 02:57 RBC 2.44 L (4.30-5.90) m/uL Hgb 7.6 L (13.0-17.5) gm/dL Hct 24.3 L (39.0-53.0) % Lymphocytes # 0.6 L (1.0-4.8) k/uL Sodium 135 L (137-145) mmol/L Chloride 108 H (98-107) mmol/L Carbon Dioxide (22-30) mmol/L BUN 38 H (9-20) mg/dL Creatinine 1.28 H (0.66-1.25) mg/dL Glucose 105 H (74-99) mg/dL Calcium 7.9 L (8.4-10.2) mg/dL Total Protein 4.9 L (6.3-8.2) g/dL Albumin 2.4 L (3.5-5.0) g/dL Microbiology - Last 24 Hours (Table) 12/16/23 09:18 Gram Stain - Preliminary Sputum Sputum Culture - Preliminary
--- NOTE | 2023-12-17 13:34 | P.PN ---
Subjective Progress Note Date: 12/17/23 77-year-old male patient, presented to the hospital because of abdominal pain, nausea, emesis, abdominal distention along with weakness, and hypotension. He also noted diminished urine output. His last bowel movement was more than 2 days ago. He is not passing any flatus. He was not treated secondary for rehabilitation following a fall with a fracture requiring surgery. In the emergency, the patient was found to have an acute on top of chronic kidney injury. Rich catheter was inserted and the patient immediately produced around 1 L of urine output. Patient was also given an NG tube and a total of 2.5 L of gastric material was aspirated immediately. CAT scan of the abdomen and pelvis was done in the emergency and the patient was found to have fluid-filled esophagus with dilated gas and fluid-filled stomach. Patient also had dilated small bowel with air fluid levels. The distal small bowel appeared collapsed and there was no clear focal transition identified. No focal bowel wall t hickening or inflammatory changes. The small bowel measures up to 4.3 cm in size. Gas and stool was present in the large bowel. Appendix was normal. No evidence of interval pneumoperitoneum. Small bilateral pleural effusions along with compressive atelectasis in the lung bases were noted. Blood work showed an acute on top of chronic kidney injury. The patient's creatinine was up to 4.23 with a BUN of 83 and his sodium was 122 with a potassium level of 6 and a chloride was 79 with a bicarb level of 32. Normal LFTs. proBNP level is 468. Amylase and lipase are within normal limits. The white cell count of 14.5 with a hemoglobin 10.1 and a platelet of 511. Coagulation profile is within normal limits. Chest x-ray showed cardiomegaly with mild pulm vascular congestion. For now, the patient is being resuscitated with IV fluids. He is on normal saline at rate of 100 cc an hour. He is also on norepinephrine which is running at 0.15 mcg/kg/min. He is on oxygen at 3 L/min nasal cannula. Triple-lumen catheter was established and the intensive care unit along with an arterial li ne. General surgery is on the case. Nephrology is also on the case. 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 He is an ex-smoker. 12/16/2023, the patient is being seen for a follow-up. The patient is much more awake compared to yesterday. Noted the patient was aggressive resuscitative IV fluids and over the past 24 hours, the patient received a total of 6 L of IV fluids. Currently on normal saline at rate of 100 cc an hour. The patient required high doses of pressors overnight and norepinephrine was as high as 0.5 mcg/kg/min. Vasopressin was added and currently norepinephrine is down to 0.32 mcg/kg/min. He is much more awake and alert and is communicating. He is on 3 L of O2 nasal cannula. NG tube is still in place and the total amount of output is given in the order of 3.6 L since the tube was placed. Urine output is improving and the patient is producing around 100 cc an hour. No fever. No chills. White cell count 11.7 with hemoglobin 8.8 and a platelet count of 578. Sodium is at 130, BUN 63 with a creatinine of 2.7. The potassium levels of 5.4 and a serum bicarb is at 20. CPK is 1024. Axes are normal. Serum cortisol was 16.9. proBNP level was 1360. Lactic acid level was ordered and results are still pending for now. Troponins at 0.034. His previous echocardiogram showed moderate aortic stenosis and preserved LV function. He is currently on O2 at 3 L. Chest x-ray shows a triple-lumen catheter in the left subclavian. At the same time, the patient has increased pulm vascular markings and some early i nfiltration of the left perihilar area. On 12/17/2023, the patient is being seen for a follow-up. The patient is, comfortable on 5 L of oxygen by nasal cannula. Continues to have a congested cough. NG tube is in place and output is minimal. Hemodynamically, is improved and the patient is still on norepinephrine running at 0.16 mcg/kg/min and the patient is also physiologic dose of vasopressin. The patient is on half-normal saline at rate of 130 cc an hour. Overall fluid balance is +1.9 L over the past 24 hours. Blood pressures improved and the patient's urine output is excellent for now. Meanwhile, he is afebrile. Hemodynamically he is improving and the blood pressure has essentially improved. We should be able to wean down the pressors. Meanwhile, the patient chest x-ray showing cardiomegaly and the patient has worsening left lower lobe pulmonary filtrate. This could be atel ectasis versus pneumonia. NG tube is in a good location. There is background cardiomegaly. The patient remains on IV Zosyn as a broad-spectrum antibiotic coverage for now. The patient is also on Lovenox 40 mg subcu for DVT prophylaxis. The white cell count is 7.6 with a hemoglobin of 7.6 and a platelet count of 398. BUN 38 with a creatinine of 1.2 and a sodium levels at 135 and potassium levels of 4.5. LFTs are essentially within normal limits. Bowel sounds are more active on today's evaluation. The patient remains n.p.o. for now. No other significant events overnight. Objective - Vital Signs Vital signs: Vital Signs Temp 98.1 F 12/17/23 05:00 Pulse 72 12/17/23 07:00 Resp 25 H 12/17/23 07:00 BP 112/52 12/16/23 12:00 Pulse Ox 96 12/17/23 07:00 FiO2 Intake & Output 12/16/23 12/17/23 12/17/23 18:59 06:59 18:59 Intake Total 5059.283 8095.354 138.426 Output Total 2620 2275 150 Balance -1574.372 -360.646 -11.574 Weight 102.2 kg 99.7 kg Intake: IV 500 1560 130 Sodium Chloride 0.45% 1, 500 1560 130 000 ml @ 130 mls/hr IV . Q7H42M [facility] Rx#:[id number] Intake, IV Titration 545.628 354.354 8.426 Amount Norepinephrine 8 mg In 394.628 309.142 8.426 Sodium Chloride 0.9% 250 ml @ 0.03 MCG/KG/MIN 5. 266 mls/hr IV .Q24H [facility] Rx#:[id number] Piperacillin-Tazobactam 3 100 .375 gm In Sodium Chloride 0.9% 100 ml @ 25 mls/hr IVPB Q8H [facility] Rx#: [id number] Vasopressin 20 unit In 51 45.212 Sodium Chloride 0.9% 50 ml @ 0.03 UNITS/MIN 4.59 mls/hr IV .Q11H7M [facility] Rx# :[id number] Output: Gastric Drainage 100 Urine 2620 2175 150 Other: Voiding Method Indwelling Catheter Indwelling Catheter # Bowel Movements 1 ABP, PAP, CO, CI - Last Documented Arterial Blood Pressure 136/39 - Exam - Constitutional General appearance: no acute distress (The patient has an NG tube in place. No signs of an acute respiratory distress and the patient is currently on 3 L oxygen by nasal cannula.) the patient has an NG tube in place. Calm and comfortable. No acute distress. - EENT Eyes: EOMI Ears: negative: bulging, bullous, dull, erythema, fluid, myringotomy tube, obstructed by cerumen, scarring, unable to vistualize, other - Neck Neck: normal ROM Carotids: negative: upstroke normal, upstroke delayed, upstroke diminished, upstroke bounding, bruit absent, bruit present Thyroid: negative: normal size, enlarged, firm, nodule - Respiratory Respiratory: negative: CTA, diminished, dullness, rales, rhonchi, wheezing, prolonged expiration, prolonged inspiration, other - Cardiovascular Rhythm: regular Heart sounds: abnormal: S1, S2 Abnormal Heart Sounds: systolic murmur systolic murmur (2) Type: holo Location: apex Grade: III/ - Gastrointestinal General gastrointestinal: absent bowel sounds, distended Localized gastrointestinal: surgical scar: diffuse - Genitourinary Male genitourinary: enlarged prostate - Integumentary Integumentary: normal - Neurologic Neurologic: CNII-XII intact - Musculoskeletal Musculoskeletal: left sided weakness - Psychiatric Psychiatric: A&O x's 3 - Labs CBC & Chem 7: 12/17/23 02:57 12/17/23 02:57 Labs: Abnormal Lab Results - Last 24 Hours (Table) 12/16/23 12/16/23 12/16/23 Range/Units 11:46 13:00 17:24 RBC (4.30-5.90) m/uL Hgb (13.0-17.5) gm/dL Hct (39.0-53.0) % Lymphocytes # (1.0-4.8) k/uL Sodium 133 L 135 L (137-145) mmol/L Chloride 108 H (98-107) mmol/L Carbon Dioxide 21 L (22-30) mmol/L BUN 52 H 47 H (9-20) mg/dL Creatinine 2.03 H 1.79 H (0.66-1.25) mg/dL Glucose 112 H 114 H (74-99) mg/dL Plasma Lactic Acid Ayad 0.5 L (0.7-2.0) mmol/L Calcium 7.7 L 7.7 L (8.4-10.2) mg/dL Total Protein (6.3-8.2) g/dL Albumin (3.5-5.0) g/dL 12/16/23 12/17/23 12/17/23 Range/Units 21:00 02:57 02:57 RBC 2.44 L (4.30-5.90) m/uL Hgb 7.6 L (13.0-17.5) gm/dL Hct 24.3 L (39.0-53.0) % Lymphocytes # 0.6 L (1.0-4.8) k/uL Sodium 135 L 135 L (137-145) mmol/L Chloride 108 H (98-107) mmol/L Carbon Dioxide (22-30) mmol/L BUN 38 H (9-20) mg/dL Creatinine 1.28 H (0.66-1.25) mg/dL Glucose 105 H (74-99) mg/dL Plasma Lactic Acid Ayad (0.7-2.0) mmol/L Calcium 7.9 L (8.4-10.2) mg/dL Total Protein 4.9 L (6.3-8.2) g/dL Albumin 2.4 L (3.5-5.0) g/dL Assessment and Plan Plan: Small bowel obstruction with secondary abdominal pain and distention. CAT scan of the abdomen shows evidence of small bowel obstruction/ileus without any transition point. Patient is status post NG tube insertion and decompression of the stomach with evacuation of around 3.5 L of gastric juice post NG tube insertion, and for now, the patient is demonstrating positive bowel sounds and NG output has been improved significantly. Acute kidney injury, along with evidence of hydronephrosis. Rule out obstructive uropathy as the patient has enlarged prostate with bilateral hydron ephrosis. Rich catheter hasbeen inserted. Rule out hypovolemic induced ATN. The patient has been aggressively started on IV fluids and the patient is showing improvement in the creatinine level and the patient has adequate urine output for now. Acute hyperkalemia secondary to above, improving Moderately severe aortic stenosis Hypotension, likely hypovolemic in nature in addition to presence of a moderately severe aortic stenosis which probably contributed to his significant drop in the blood pressure. The patient is currently on norepinephrine and vasopressin physiologic dose as the patient is also being sustained IV fluids. The pressor requirements have improved considerably over the past 24 hours. Recent hip fracture status post ORIF History of CVA maintained on Plavix with some residual left-sided weakness Hyperlipidemia Anemia of chronic disease Acute hyponatremia in the setting of obstructive uropathy and renal failure, improving Acute hypoxic respiratory failure, currently on 4 L of oxygen by nasal cannula. The patient also developed atelectatic changes/infiltrate in the left lung base. Consider fluid overload versus pneumonia. Currently on IV Zosyn. Plan Keep the patient in the intensive care unit Change IV fluids to KVO Wean off pressors and will try to cut on norepinephrine to much lower doses and stop if possible. Continue vasopressin physiologic dose Rich catheter has been inserted Monitor urine output and the rest of the electrolytes Nephrology consultation is appreciated Patient is currently on Zosyn. Clamped NG tube , The patient did have a bowel movement. I am considering removal of the NG tube and the patient remains stable over the next few hours. echocardiogram has been noted and the patient has moderate to severe aortic stenosis Will continue to follow make further recommendations based on progress.
--- NOTE | 2023-12-17 14:59 | P.CRDCN ---
History of Present Illness Consult date: 12/17/23 History of present illness: History of Present Illness: The patient is a 77-year-old male who presented with progressive fatigue abdominal pain was found to have ileus, hyponatremia and acute renal injury cardiology consultation was requested because of atrial fibrillation. The patient was in the hospital earlier this month after a fall and a fractured hip, underwent surgery. His echocardiogram preoperatively showed a preserved systolic function with moderate aortic stenosis and a mean gradient of 21 mmHg. He continues to be on vasopressor but at a lower dose. He went in atrial fibrillation earlier this morning with controlled ventricular response, asymptomatic. He has an underlying right bundle branch block and no prior atrial fibrillation during his hospitalization. He has no significant peripheral edema. His urine output has been good. He continues to have an NG tube but he is having flatus and has underwent further evaluation with abdominal x-ray today. Patient has a prior history of stroke and was on Plavix in the past. He had significant hypotension on presentation and received intravenous fluid. On presentation his hemoglobin dropped to 8.3 and his BUN and creatinine were 83 and 4.23. Today his creatinine is 1.28 and his hemoglobin is 7.6. Medications: Aspirin, Lovenox, norepinephrine, vasopressin Review of Systems: Respiratory: He has dyspnea on exertion but no recent wheezing GI: He has abdominal pain with evidence of small bowel obstruction on presentation : No hematuria or dysuria. Nervous System: He has a prior history of stroke Physical Examination: 77-year-old male, alert oriented, NG tube in place,Blood pressure 118/50, Heart rate 80 Head: Normocephalic. Eyes: Sclerae nonicteric. Neck: Good carotid upstroke, no bruit, no jugular venous distention. Lungs: Clear to auscultation. Heart: Irregular rate and rhythm, S1-S2 with systolic ejection murmur 2/6 at the base Abdomen: Soft nontender, hypoactive bowel sounds no organomegaly. Extremities: No edema, intact distal pulses. Labs: Hemoglobin 7.6, BUN 38, creatinine 1.28, potassium 4.8 EKG: Atrial fibrillation with right bundle branch block Impression: 1. Acute renal injury with dehydration, improving 2. Small bowel obstruction, improving 3. Atrial fibrillation of new onset, no prior documented history of atrial fibrillation 4. Moderate aortic stenosis 5. Hypotension related to dehydration, improving 6. History of smoking and COPD 7. Prior history of stroke, etiology unclear, no prior documented history of atrial fibrillation Plan: 1. Initiate heparin 2. Decrease aspirin 3. Follow heart rate 4. Once taking oral medication change to oral anticoagulation 5. Depending on his progress further recommendations will be made, thank you zohreh r this consult we will follow with you Past Medical History Past Medical History: CVA/TIA, Hyperlipidemia, Hypertension, Prostate Disorder Additional Past Medical History / Comment(s): Moderate severe aortic stenosis History of Any Multi-Drug Resistant Organisms: None Reported Past Surgical History: Orthopedic Surgery Past Anesthesia/Blood Transfusion Reactions: No Reported Reaction Past Psychological History: No Psychological Hx Reported Smoking Status: Current every day smoker Past Alcohol Use History: None Reported Past Drug Use History: None Reported Medications and Allergies Home Medications Medication Instructions Recorded Confirmed Type Clopidogrel [Plavix] 75 mg PO DAILY 11/25/23 12/15/23 History Lisinopril-Hctz 20-12.5 mg 1 tab PO DAILY 11/25/23 12/15/23 History [Zestoretic 20-12.5] Aspirin [Adult Low Dose Aspirin EC] 81 mg PO BID 30 Days #60 tab 11/30/23 12/15/23 Rx HYDROcodone/APAP 5-325MG [[place] 1 - 2 tab PO Q6HR PRN #32 tab 11/30/23 12/15/23 Rx 5-325] Nicotine 21Mg/24Hr Patch [Habitrol] 1 patch TRANSDERM DAILY patch 11/30/23 12/15/23 Rx Lactose-Reduced Food [Ensure Plus] 1 can PO DAILY 12/15/23 12/15/23 History Sennosides [Senokot] 17.2 tab PO DAILY PRN 12/15/23 12/15/23 History Allergies Allergy/AdvReac Type Severity Reaction Status Date / Time No Known Allergies Allergy Verified 12/15/23 11:53 Physical Exam Vitals: Vital Signs Temp Pulse Resp BP Pulse Ox 12/17/23 13:15 96 20 118/47 95 12/17/23 13:00 98 28 H 118/47 97 12/17/23 12:45 98 19 118/47 97 12/17/23 12:30 80 16 118/47 93 L 12/17/23 12:15 98 19 90 L 12/17/23 12:00 97.8 F 84 20 118/47 93 L 12/17/23 11:45 98 22 118/47 89 L 12/17/23 11:30 90 17 118/47 95 12/17/23 11:15 89 32 H 118/47 93 L 12/17/23 11:00 99 21 118/47 95 12/17/23 10:45 87 15 118/47 98 12/17/23 10:30 76 17 118/47 99 12/17/23 10:15 79 15 118/47 97 12/17/23 10:00 95 18 118/47 96 12/17/23 09:45 63 15 118/47 95 12/17/23 09:30 64 20 118/47 93 L 12/17/23 09:15 61 16 118/47 92 L 12/17/23 09:00 67 23 118/47 92 L 12/17/23 08:45 58 L 18 118/47 93 L 12/17/23 08:30 62 22 118/47 92 L 12/17/23 08:15 63 22 118/47 91 L 12/17/23 08:00 98.2 F 60 21 112/43 90 L 12/17/23 07:45 65 22 112/43 88 L 12/17/23 07:30 68 23 89 L 12/17/23 07:15 62 21 112/43 97 12/17/23 07:00 72 25 H 96 12/17/23 06:45 66 20 97 12/17/23 06:30 64 16 94 L 12/17/23 06:15 63 17 97 12/17/23 06:00 76 20 93 L 12/17/23 05:45 60 17 98 12/17/23 05:30 74 17 96 12/17/23 05:15 61 22 98 12/17/23 05:00 98.1 F 60 20 100 12/17/23 04:45 67 22 95 12/17/23 04:30 65 57 H 95 12/17/23 04:15 68 29 H 98 12/17/23 04:00 77 29 H 97 12/17/23 03:45 68 20 98 12/17/23 03:30 68 20 99 12/17/23 03:15 61 16 97 12/17/23 03:00 72 18 97 12/17/23 02:45 62 14 98 12/17/23 02:30 74 18 98 12/17/23 02:15 86 24 96 12/17/23 02:00 73 16 97 12/17/23 01:45 77 19 98 12/17/23 01:30 67 16 97 12/17/23 01:15 72 17 98 12/17/23 01:00 80 19 96 12/17/23 00:45 60 14 99 12/17/23 00:30 61 17 98 12/17/23 00:15 79 21 97 12/17/23 00:00 98.7 F 61 16 99 12/16/23 23:45 69 21 97 12/16/23 23:30 68 20 97 12/16/23 23:15 63 26 H 97 12/16/23 23:00 66 17 96 12/16/23 22:45 66 17 97 12/16/23 22:30 54 L 14 95 12/16/23 22:15 62 15 96 12/16/23 22:00 67 24 97 12/16/23 21:45 65 18 96 12/16/23 21:30 70 20 93 L 12/16/23 21:15 67 12 93 L 12/16/23 21:00 67 18 96 12/16/23 20:45 59 L 20 97 12/16/23 20:30 67 20 92 L 12/16/23 20:15 75 23 96 12/16/23 20:00 71 29 H 95 12/16/23 19:45 60 24 97 12/16/23 19:30 67 33 H 96 12/16/23 19:15 67 15 97 12/16/23 19:00 98.3 F 66 19 95 12/16/23 18:45 61 17 97 12/16/23 18:30 67 14 97 12/16/23 18:15 63 17 94 L 12/16/23 18:00 63 18 96 12/16/23 17:45 69 21 97 12/16/23 17:30 62 22 95 12/16/23 17:15 57 L 16 97 12/16/23 17:00 67 12 96 12/16/23 16:45 87 13 98 12/16/23 16:30 61 22 94 L 12/16/23 16:15 61 20 96 12/16/23 16:00 65 11 L 97 12/16/23 15:45 70 14 95 12/16/23 15:30 61 18 96 12/16/23 15:15 60 13 95 12/16/23 15:00 73 28 H 94 L Intake and Output 12/16/23 12/17/23 12/17/23 22:59 06:59 14:59 Intake Total 0130.096 6134.529 647.496 Output Total 1580 1550 970 Balance -351.000 -241.471 -322.504 Intake: IV 920 1040 610 Piperacillin-Tazobactam 3 100 .375 gm In Sodium Chloride 0.9% 100 ml @ 25 mls/hr IVPB Q8H [facility] Rx#: [id number] Sodium Chloride 0.45% 1, 920 1040 310 000 ml @ 50 mls/hr IV . Q20H [facility] Rx#:[id number] Sodium Chloride 0.9% 1, 200 000 ml @ 50 mls/hr IV . Q20H [facility] Rx#:[id number] Intake, IV Titration 309.000 268.529 37.496 Amount Norepinephrine 8 mg In 258.000 223.317 8.426 Sodium Chloride 0.9% 250 ml @ 0.03 MCG/KG/MIN 5. 266 mls/hr IV .Q24H [facility] Rx#:[id number] Vasopressin 20 unit In 51 45.212 29.07 Sodium Chloride 0.9% 50 ml @ 0.03 UNITS/MIN 4.59 mls/hr IV .Q11H7M [facility] Rx# :[id number] Output: Gastric Drainage 100 Urine 1580 1450 970 Other: Voiding Method Indwelling Catheter Indwelling Catheter Indwelling Catheter # Bowel Movements 1 Weight 99.7 kg ABP, PAP, CO, CI - Last 8 Hours Arterial Blood Pressure 125/50 Arterial Blood Pressure 119/45 Arterial Blood Pressure 121/54 Arterial Blood Pressure 101/36 Arterial Blood Pressure 108/43 Arterial Blood Pressure 117/44 Arterial Blood Pressure 117/46 Arterial Blood Pressure 136/48 Arterial Blood Pressure 125/49 Arterial Blood Pressure 126/48 Arterial Blood Pressure 116/45 Arterial Blood Pressure 129/44 Arterial Blood Pressure 141/49 Arterial Blood Pressure 138/53 Arterial Blood Pressure 140/39 Arterial Blood Pressure 138/43 Arterial Blood Pressure 133/39 Arterial Blood Pressure 133/41 Arterial Blood Pressure 146/42 Arterial Blood Pressure 139/42 Arterial Blood Pressure 133/41 Arterial Blood Pressure 135/40 Arterial Blood Pressure 160/47 Arterial Blood Pressure 143/54 Arterial Blood Pressure 122/36 Arterial Blood Pressure 136/39 Results 12/17/23 02:57 12/17/23 02:57 Cardiac Enzymes 12/17/23 Range/Units 02:57 AST 41 (17-59) U/L CBC 12/17/23 Range/Units 02:57 WBC 7.6 (3.8-10.6) k/uL RBC 2.44 L (4.30-5.90) m/uL Hgb 7.6 L (13.0-17.5) gm/dL Hct 24.3 L (39.0-53.0) % Plt Count 398 (150-450) k/uL Comprehensive Metabolic Panel 12/16/23 12/16/23 12/17/23 Range/Units 17:24 21:00 02:57 Sodium 135 L 135 L 135 L (137-145) mmol/L Potassium 4.8 4.8 (3.5-5.1) mmol/L Chloride 106 108 H (98-107) mmol/L Carbon Dioxide 23 24 (22-30) mmol/L BUN 47 H 38 H (9-20) mg/dL Creatinine 1.79 H 1.28 H (0.66-1.25) mg/dL Glucose 114 H 105 H (74-99) mg/dL Calcium 7.7 L 7.9 L (8.4-10.2) mg/dL AST 41 (17-59) U/L ALT 19 (4-49) U/L Alkaline Phosphatase 86 (38-126) U/L Total Protein 4.9 L (6.3-8.2) g/dL Albumin 2.4 L (3.5-5.0) g/dL Current Medications Generic Name Dose Route Start Last Admin Trade Name Freq PRN Reason Stop Dose Admin Hydrocodone Bitart/Acetaminophen 1 each 12/15/23 13:18 12/17/23 11:21 Hydrocodone/Apap 5-325mg 1 Each Tab PO 1 each Q6HR PRN Administration Pain Aspirin 81 mg 12/15/23 21:00 12/17/23 09:10 Aspirin 81 Mg PO 81 mg BID [facility]NA Administration Enoxaparin Sodium 40 mg 12/17/23 09:00 12/17/23 10:11 Enoxaparin 40 Mg/0.4 Ml Syringe SQ 40 mg DAILY [facility]NA Administration Norepinephrine Bitartrate 8 mg 258 mls @ 5.266 mls/hr 12/16/23 00:00 12/17/23 07:01 / Sodium Chloride IV 0.19 mcg/kg/min .Q24H [facility] 33.353 mls/hr Titration Protocol 0.03 MCG/KG/MIN Vasopressin 20 unit/ Sodium 51 mls @ 4.59 mls/hr 12/16/23 05:30 12/17/23 10:20 Chloride IV 0.03 units/min .Q11H7M [facility] 4.59 mls/hr Administration Protocol 0.03 UNITS/MIN Piperacillin Sod/Tazobactam 100 mls @ 25 mls/hr 12/16/23 10:00 12/17/23 09:10 Sod 3.375 gm/ Sodium Chloride IVPB 25 mls/hr Q8H MALRENA Administration Protocol Sodium Chloride 1,000 mls @ 50 mls/hr 12/17/23 10:15 12/17/23 10:12 Saline 0.9% IV 50 mls/hr .Q20H [facility] Administration Naloxone HCl 0.2 mg 12/15/23 12:40 Naloxone 0.4 Mg/Ml 1 Ml Vial IV Q2M PRN Opioid Reversal Nicotine 1 patch 12/16/23 09:00 12/17/23 10:11 Nicotine 21mg/24hr Patch TRANSDERM 1 patch DAILY [facility] Administration Pantoprazole Sodium 40 mg 12/16/23 09:00 12/17/23 09:10 Pantoprazole 40 Mg/10 Ml Vial IV 40 mg DAILY [facility] Administration Senna 17.2 mg 12/15/23 13:18 Sennosides 8.6 Mg Tab PO DAILY PRN Constipation Intake and Output 12/16/23 12/17/23 12/17/23 22:59 06:59 14:59 Intake Total 5025.759 7209.529 647.496 Output Total 1580 1550 970 Balance -351.000 -241.471 -322.504 Intake: IV 920 1040 610 Piperacillin-Tazobactam 3 100 .375 gm In Sodium Chloride 0.9% 100 ml @ 25 mls/hr IVPB Q8H [facility] Rx#: [id number] Sodium Chloride 0.45% 1, 920 1040 310 000 ml @ 50 mls/hr IV . Q20H [facility] Rx#:[id number] Sodium Chloride 0.9% 1, 200 000 ml @ 50 mls/hr IV . Q20H [facility] Rx#:[id number] Intake, IV Titration 309.000 268.529 37.496 Amount Norepinephrine 8 mg In 258.000 223.317 8.426 Sodium Chloride 0.9% 250 ml @ 0.03 MCG/KG/MIN 5. 266 mls/hr IV .Q24H [facility] Rx#:[id number] Vasopressin 20 unit In 51 45.212 29.07 Sodium Chloride 0.9% 50 ml @ 0.03 UNITS/MIN 4.59 mls/hr IV .Q11H7M [facility] Rx# :[id number] Output: Gastric Drainage 100 Urine 1580 1450 970 Other: Voiding Method Indwelling Catheter Indwelling Catheter Indwelling Catheter # Bowel Movements 1 Weight 99.7 kg 12/17/23 02:57 12/17/23 02:57
--- NOTE | 2023-12-17 16:42 | XR ---
Abdomen. HISTORY: Abdominal pain, distention. COMPARISON: None. TECHNIQUE: 5 views of the abdomen were obtained including 3 supine and 2 upright views. FINDINGS: There is an NG tube within the stomach. There is a left lower lobe infiltrate consistent with pneumonia or atelectasis. The bowel gas pattern is unremarkable and there is no evidence of bowel obstruction. There is no evid ence of free intraperitoneal air beneath the diaphragm. There is a mild amount of stool within the colon. There are no suspicious abdominal or pelvic calcifications. There has been open reduction internal fixation of a intertrochanteric fracture of the right femur. T he remaining osseous structures are intact. IMPRESSION: 1. Nonspecific abdomen without evidence of free air or obstruction. 2. Left lower lobe opacity consistent with atelectasis or acute pneumonia. Short-term follow-up is re commended. 3. NG tube within the stomach. [facility], , 12/17/2023 4:40 PM
[2023-12-17] MEDS: HEPARIN SOD,PORK IN 0.45% NACL 25,000 UNIT in 0.45% NACL 1 250ML.BAG IV SCH (16:47)
[2023-12-17 17:08] LABS: INR 0.9 (<1.2); Magnesium 2.3 mg/dL (1.6-2.3); Partial Thromboplastin Time 26.8 sec (22.0-30.0); Prothrombin Time 10.3 sec (10.0-12.5)
[2023-12-17 17:13] LABS: Basophils % (A) 0 %; Eosinophils % (A) 1 %; HCT 25.1 % (39.0-53.0); HGB 7.8 gm/dL (13.0-17.5); Hypochromasia Slight; Lymphocytes # (A) 0.8 k/uL (1.0-4.8); Lymphocytes % (A) 11 %; MCH 30.6 pg (25.0-35.0); MCHC 31.2 g/dL (31.0-37.0); MCV 98.3 fL (80.0-100.0); Mean Platelet Volume 8.2; Monocytes # (A) 0.5 k/uL (0-1.0); Monocytes % (A) 7 %; Neutrophils # (A) 5.8 k/uL (1.3-7.7); Neutrophils % (A) 81 %; Platelet Count 336 k/uL (150-450); RBC 2.56 m/uL (4.30-5.90); RDW 13.3 % (11.5-15.5); WBC 7.2 k/uL (3.8-10.6)
[2023-12-18 06:31] LABS: Basophils % (A) 0 %; Eosinophils # (A) 0.1 k/uL (0-0.7); Eosinophils % (A) 1 %; HCT 24.8 % (39.0-53.0); HGB 7.6 gm/dL (13.0-17.5); Hypochromasia Moderate; Lymphocytes # (A) 0.6 k/uL (1.0-4.8); Lymphocytes % (A) 9 %; MCH 30.6 pg (25.0-35.0); MCHC 30.8 g/dL (31.0-37.0); MCV 99.2 fL (80.0-100.0); Mean Platelet Volume 7.1; Monocytes # (A) 0.3 k/uL (0-1.0); Monocytes % (A) 5 %; Neutrophils # (A) 5.3 k/uL (1.3-7.7); Neutrophils % (A) 84 %; Platelet Count 366 k/uL (150-450); RDW 13.4 % (11.5-15.5); WBC 6.3 k/uL (3.8-10.6)
[2023-12-18 06:36] LABS: Partial Thromboplastin Time 41.4 sec (22.0-30.0); Prothrombin Time 10.5 sec (10.0-12.5)
[2023-12-18] MEDS: HEPARIN SODIUM 1,000 UN/ML (10ML VL) IV PRN (07:01)
--- NOTE | 2023-12-18 07:18 | XR ---
EXAMINATION TYPE: XR chest 1V portable DATE OF EXAM: 12/18/2023 COMPARISON: 12/16/2023 HISTORY: Shortness of breath TECHNIQUE: Single frontal view of the chest is obtained. FINDINGS: There is marked increase in the opacification of the left hemithorax likely a combination of pleural effusion and airspace consolidation/pneumonic infiltrate there's been interval development of hazy de nsity in the right lung base likely reflecting development of a right pleural effusion. The PICC line tip is unchanged in the SVC/RA junction. The NG tube is within the stomach. IMPRESSION: Marked interval worsening in the acute cardiopulmonary disease as described above. [facility], , 12/18/2023 7:16 AM
[2023-12-18 07:39] LABS: ALT 16 U/L (4-49); AST 25 U/L (17-59); African American GFR (CKD) >90 (>60 ml/min/1.73 sqM); Albumin 2.5 g/dL (3.5-5.0); Alkaline Phosphatase 84 U/L (38-126); Anion Gap 5 mmol/L; Blood Urea Nitrogen 22 mg/dL (9-20); Calcium 8.3 mg/dL (8.4-10.2); Carbon Dioxide 27 mmol/L (22-30); Chloride 109 mmol/L (98-107); Glucose 87 mg/dL (74-99); Non-African American GFR(CKD) 80 (>60 ml/min/1.73 sqM); Potassium 4.7 mmol/L (3.5-5.1); Sodium 141 mmol/L (137-145); Total Bilirubin 0.4 mg/dL (0.2-1.3); Total Protein 5.2 g/dL (6.3-8.2)
--- NOTE | 2023-12-18 09:17 | P.PN ---
Subjective Progress Note Date: 12/18/23 Patient is resting comfortably his bed. He denies any abdominal pain. He has had flatus and bowel movements. On exam vital signs appear stable. Abdomen is soft nontender Resolved ileus. Patient's recent abdominal x-ray shows no evidence of obstruction. Patient can have his diet advanced as tolerated. Objective - Vital Signs Vital signs: Vital Signs Temp 97.8 F 12/18/23 04:00 Pulse 98 12/18/23 07:00 Resp 18 12/18/23 07:00 BP 119/63 12/18/23 07:00 Pulse Ox 95 12/18/23 08:10 FiO2 Intake & Output 12/17/23 12/18/23 12/18/23 18:59 06:59 18:59 Intake Total 1309.050 825.251 134.726 Output Total 1545 1105 70 Balance -235.950 -279.749 64.726 Weight 101 kg Intake: IV 1010 550 50 Piperacillin-Tazobactam 3 200 .375 gm In Sodium Chloride 0.9% 100 ml @ 25 mls/hr IVPB Q8H [facility] Rx#: [id number] Sodium Chloride 0.45% 1, 310 000 ml @ 50 mls/hr IV . Q20H [facility] Rx#:[id number] Sodium Chloride 0.9% 1, 500 550 50 000 ml @ 50 mls/hr IV . Q20H [facility] Rx#:[id number] Intake, IV Titration 299.050 275.251 84.726 Amount Heparin Sod,Pork in 0.45% 157.285 NaCl 25,000 unit In 0.45 % NaCl 1 250ml.bag @ 10. 03 UNITS/KG/HR 10 mls/hr IV .Q24H [facility] Rx#: [id number] Norepinephrine 8 mg In 269.980 66.966 84.726 Sodium Chloride 0.9% 250 ml @ 0.03 MCG/KG/MIN 5. 266 mls/hr IV .Q24H [facility] Rx#:[id number] Vasopressin 20 unit In 29.07 51 Sodium Chloride 0.9% 50 ml @ 0.03 UNITS/MIN 4.59 mls/hr IV .Q11H7M [facility] Rx# :[id number] Output: Urine 1545 1105 70 Other: Voiding Method Indwelling Catheter Indwelling Catheter ABP, PAP, CO, CI - Last Documented Arterial Blood Pressure 136/54 - Labs CBC & Chem 7: 12/18/23 05:53 12/18/23 05:53 Labs: Abnormal Lab Results - Last 24 Hours (Table) 12/17/23 12/17/23 12/18/23 Range/Units 16:45 22:11 05:53 RBC 2.56 L (4.30-5.90) m/uL Hgb 7.8 L (13.0-17.5) gm/dL Hct 25.1 L (39.0-53.0) % MCHC (31.0-37.0) g/dL Lymphocytes # 0.8 L (1.0-4.8) k/uL APTT 36.9 H (22.0-30.0) sec Chloride 109 H (98-107) mmol/L BUN 22 H (9-20) mg/dL Calcium 8.3 L (8.4-10.2) mg/dL Total Protein 5.2 L (6.3-8.2) g/dL Albumin 2.5 L (3.5-5.0) g/dL 12/18/23 12/18/23 Range/Units 05:53 05:53 RBC 2.50 L (4.30-5.90) m/uL Hgb 7.6 L (13.0-17.5) gm/dL Hct 24.8 L (39.0-53.0) % MCHC 30.8 L (31.0-37.0) g/dL Lymphocytes # 0.6 L (1.0-4.8) k/uL APTT 41.4 H (22.0-30.0) sec Chloride (98-107) mmol/L BUN (9-20) mg/dL Calcium (8.4-10.2) mg/dL Total Protein (6.3-8.2) g/dL Albumin (3.5-5.0) g/dL Microbiology - Last 24 Hours (Table) 12/16/23 09:18 Gram Stain - Preliminary Sputum Sputum Culture - Preliminary
[2023-12-18] MEDS: ASPIRIN 81 MG PO SCH (09:39)
[2023-12-18] MEDS: SODIUM CHLORIDE 0.45% 1,000 ML IV SCH (09:40)
--- NOTE | 2023-12-18 10:15 | P.PN ---
Subjective Progress Note Date: 12/18/23 Cehvy French, is a 77-year-old male who presented to [facility] emergency room due to abdominal pain and generalized weakness and hypotension. Patient was recently admitted to [facility] after sustaining a fall and having femur fracture he underwent surgery and was transferred to detention for rehab. He was evaluated in the emergency room vital examination on presentation revealed a temperature of 98.7 pulse 80 respiration 30 blood pressure 80/53 pulse ox 97% on 5 L nasal cannula Laboratory data revealed a white blood count of 14.5 hemoglobin 10.1 platelet count 511 sodium 122 potassium 6.0 chloride 79 BUN 83 creatinine 4.23 Testing in the emergency room revealed chest x-ray revealed low lung volumes with generalized hazy appearance which could represent atelectasis versus pulmonary edema, CT scan of the abdomen revealed dilated small bowel loops and stomach without clear focal transition point, and significantly distended urinary bladder with bilateral hydronephrosis. Patient was admitted to medical floor for further evaluation and treatment On 12/16/2023 patient was seen and examined in the ICU, he is alert and oriented in no distress, he is maintained on blood pressure support, triple lumen and arterial line inserted, patient is followed by critical care, he denies any chest pain, or shortness of breath, munoz catheter inserted yesterday, kidney function improving. On 12/17/2023 patient is alert and oriented. Patient remains in the ICU pressure supporting medication. Creatinine improving to 1.28 bun 38 potassium 4.8 sodium 135.current vital signs temp 98.1, heart rate 60, respiratory rate 20, blood pressure 1 today knee 6/41 with pulse ox of96% on 4 L. Patient remains with NG tube nothing by mouth. On 12/18/2023 patient was seen and examined in the ICU he is alert and oriented x 3 in no apparent distress, there is no fever or chills no headache or dizziness no chest pain no shortness of breath no cough no nausea or vomiting no abdominal pain no diarrhea no blood in the stools, patient is passing gas and having bowel movements, no burning with urination no frequency or urgency and no hematuria. Yesterday patient developed atrial fibrillation with rapid ventricular response, he was seen by cardiology and was started on IV heparin. Objective - Vital Signs Vital signs: Vital Signs Temp 97.5 F L 12/18/23 08:00 Pulse 98 12/18/23 09:45 Resp 33 H 12/18/23 09:45 BP 126/73 12/18/23 09:45 Pulse Ox 94 L 12/18/23 09:45 FiO2 Intake & Output 12/17/23 12/18/23 12/18/23 18:59 06:59 18:59 Intake Total 1309.050 825.251 928.008 Output Total 1545 1105 345 Balance -235.950 -279.749 583.008 Weight 101 kg Intake: IV 1010 550 325 Piperacillin-Tazobactam 3 200 100 .375 gm In Sodium Chloride 0.9% 100 ml @ 25 mls/hr IVPB Q8H [facility] Rx#: [id number] Sodium Chloride 0.45% 1, 310 75 000 ml @ 50 mls/hr IV . Q20H [facility] Rx#:[id number] Sodium Chloride 0.9% 1, 500 550 150 000 ml @ 50 mls/hr IV . Q20H [facility] Rx#:[id number] Intake, IV Titration 299.050 275.251 113.008 Amount Heparin Sod,Pork in 0.45% 157.285 NaCl 25,000 unit In 0.45 % NaCl 1 250ml.bag @ 10. 03 UNITS/KG/HR 10 mls/hr IV .Q24H [facility] Rx#: [id number] Norepinephrine 8 mg In 269.980 66.966 113.008 Sodium Chloride 0.9% 250 ml @ 0.03 MCG/KG/MIN 5. 266 mls/hr IV .Q24H [facility] Rx#:[id number] Vasopressin 20 unit In 29.07 51 Sodium Chloride 0.9% 50 ml @ 0.03 UNITS/MIN 4.59 mls/hr IV .Q11H7M [facility] Rx# :[id number] Oral 490 Output: Urine 1545 1105 345 Other: Voiding Method Indwelling Catheter Indwelling Catheter ABP, PAP, CO, CI - Last Documented Arterial Blood Pressure 138/60 - Exam In general patient is alert and oriented x 3 in no distress HEENT head normocephalic and atraumatic Neck is supple no JVD no goiter no lymphadenopathy no carotid bruit Chest examination is clear to auscultation no crackles no wheezing Cardiac exam reveals regular heart sounds S1 and S2 no gallops no murmurs Abdomen is soft with mild diffuse tenderness no organomegaly no palpable masses with sluggish bowel sounds Extremity exam reveals no edema no cyanosis or clubbing Neurological examination reveals no gross focal deficits - Labs CBC & Chem 7: 12/18/23 05:53 12/18/23 05:53 Labs: Abnormal Lab Results - Last 24 Hours (Table) 12/17/23 12/17/23 12/18/23 Range/Units 16:45 22:11 05:53 RBC 2.56 L (4.30-5.90) m/uL Hgb 7.8 L (13.0-17.5) gm/dL Hct 25.1 L (39.0-53.0) % MCHC (31.0-37.0) g/dL Lymphocytes # 0.8 L (1.0-4.8) k/uL APTT 36.9 H (22.0-30.0) sec Chloride 109 H (98-107) mmol/L BUN 22 H (9-20) mg/dL Calcium 8.3 L (8.4-10.2) mg/dL Total Protein 5.2 L (6.3-8.2) g/dL Albumin 2.5 L (3.5-5.0) g/dL 12/18/23 12/18/23 Range/Units 05:53 05:53 RBC 2.50 L (4.30-5.90) m/uL Hgb 7.6 L (13.0-17.5) gm/dL Hct 24.8 L (39.0-53.0) % MCHC 30.8 L (31.0-37.0) g/dL Lymphocytes # 0.6 L (1.0-4.8) k/uL APTT 41.4 H (22.0-30.0) sec Chloride (98-107) mmol/L BUN (9-20) mg/dL Calcium (8.4-10.2) mg/dL Total Protein (6.3-8.2) g/dL Albumin (3.5-5.0) g/dL Microbiology - Last 24 Hours (Table) 12/16/23 09:18 Gram Stain - Preliminary Sputum Sputum Culture - Preliminary Assessment and Plan Plan: Abdominal pain Dilated small bowels with possible ileus versus partial small bowel obstruction Urinary retention Hypotension Severe hyponatremia Acute kidney injury Electrolyte imbalance with severe hyperkalemia Leukocytosis Recent fall with right femur fracture with surgical repair New onset atrial fibrillation with rapid ventricular response during this admission At this time patient is admitted to medical floor Munoz catheter was inserted in the emergency room He was started on IV fluid Nephrology and urology consultation were requested For DVT prophylaxis subcu Lovenox Will follow closely
--- NOTE | 2023-12-18 10:23 | P.PN ---
Subjective Patient is seen in follow-up for acute kidney injury. Renal function improving. Nonoliguric. Receiving IV fluids. Remains on vasopressors. Vital signs are stable. On vasopressor support. General: Resting in bed. HEENT: NG tube removed. On nasal cannula. LUNGS: Scattered rhonchi. HEART: Rate and Rhythm are regular. ABDOMEN: Nontender. Distention noted. EXTREMITITES: No edema. Objective - Vital Signs Vital signs: Vital Signs Temp 97.5 F L 12/18/23 08:00 Pulse 98 12/18/23 09:45 Resp 33 H 12/18/23 09:45 BP 126/73 12/18/23 09:45 Pulse Ox 94 L 12/18/23 09:45 FiO2 Intake & Output 12/17/23 12/18/23 12/18/23 18:59 06:59 18:59 Intake Total 1309.050 825.251 928.008 Output Total 1545 1105 345 Balance -235.950 -279.749 583.008 Weight 101 kg Intake: IV 1010 550 325 Piperacillin-Tazobactam 3 200 100 .375 gm In Sodium Chloride 0.9% 100 ml @ 25 mls/hr IVPB Q8H [facility] Rx#: [id number] Sodium Chloride 0.45% 1, 310 75 000 ml @ 50 mls/hr IV . Q20H [facility] Rx#:[id number] Sodium Chloride 0.9% 1, 500 550 150 000 ml @ 50 mls/hr IV . Q20H [facility] Rx#:[id number] Intake, IV Titration 299.050 275.251 113.008 Amount Heparin Sod,Pork in 0.45% 157.285 NaCl 25,000 unit In 0.45 % NaCl 1 250ml.bag @ 10. 03 UNITS/KG/HR 10 mls/hr IV .Q24H [facility] Rx#: [id number] Norepinephrine 8 mg In 269.980 66.966 113.008 Sodium Chloride 0.9% 250 ml @ 0.03 MCG/KG/MIN 5. 266 mls/hr IV .Q24H [facility] Rx#:[id number] Vasopressin 20 unit In 29.07 51 Sodium Chloride 0.9% 50 ml @ 0.03 UNITS/MIN 4.59 mls/hr IV .Q11H7M [facility] Rx# :[id number] Oral 490 Output: Urine 1545 1105 345 Other: Voiding Method Indwelling Catheter Indwelling Catheter ABP, PAP, CO, CI - Last Documented Arterial Blood Pressure 138/60 - Labs CBC & Chem 7: 12/18/23 05:53 12/18/23 05:53 Labs: Abnormal Lab Results - Last 24 Hours (Table) 12/17/23 12/17/23 12/18/23 Range/Units 16:45 22:11 05:53 RBC 2.56 L (4.30-5.90) m/uL Hgb 7.8 L (13.0-17.5) gm/dL Hct 25.1 L (39.0-53.0) % MCHC (31.0-37.0) g/dL Lymphocytes # 0.8 L (1.0-4.8) k/uL APTT 36.9 H (22.0-30.0) sec Chloride 109 H (98-107) mmol/L BUN 22 H (9-20) mg/dL Calcium 8.3 L (8.4-10.2) mg/dL Total Protein 5.2 L (6.3-8.2) g/dL Albumin 2.5 L (3.5-5.0) g/dL 12/18/23 12/18/23 Range/Units 05:53 05:53 RBC 2.50 L (4.30-5.90) m/uL Hgb 7.6 L (13.0-17.5) gm/dL Hct 24.8 L (39.0-53.0) % MCHC 30.8 L (31.0-37.0) g/dL Lymphocytes # 0.6 L (1.0-4.8) k/uL APTT 41.4 H (22.0-30.0) sec Chloride (98-107) mmol/L BUN (9-20) mg/dL Calcium (8.4-10.2) mg/dL Total Protein (6.3-8.2) g/dL Albumin (3.5-5.0) g/dL Microbiology - Last 24 Hours (Table) 12/16/23 09:18 Gram Stain - Preliminary Sputum Sputum Culture - Preliminary Assessment and Plan Plan: Assessment: 1. Acute kidney injury secondary to ATN secondary to hypotension and urinary retention. Creatinine 4.23 on admission and is improved to 0.93 today. Creatinine 0.9 dated November 30, 2023. 2. Bilateral hydronephrosis and urinary retention. Currently has Rich piter ter. Seen by urology. No interventions planned at this time. Voiding trial prior to discharge. 3. Hyponatremia secondary to acute kidney injury and urinary retention. Further worsened with the use of thiazide diuretic outpatient. Improved. 4. Abdominal pain. Ileus versus bowel obstruction. Surgery following. 5. Chronic diastolic CHF and moderate aortic stenosis. 6. Hyperkalemia secondary to acute kidney injury, urinary retention and use of SELINA inhibitor. Improved. 7. Recent hip fracture status post surgical repair. 8. Shock maintained on vasopressors. Plan: Change IV fluids to half-normal saline to be run at 75 cc an hour. Maintain Rich catheter. Avoid nephrotoxins. Wean vasopressors. Continue to monitor renal function and urine output. Cortisol level not low. Continue to monitor renal function and urine output.
--- NOTE | 2023-12-18 11:57 | CT ---
EXAMINATION TYPE: CT chest wo con DATE OF EXAM: 12/18/2023 COMPARISON: None HISTORY: SHERIF CT DLP: 773 mGycm. Automated Exposure Control for Dose Reduction was Utilized. TECHNIQUE: CT scan of the thorax is performed without IV contrast. FINDINGS: There is a large partially consolidative opacity in the left lung with a moderate to large left pleur al effusion. There is a small right lung base opacification with small to moderate right pleural effu jennifer. The heart size is prominent. The pulmonary vasculature does not appear congested. There is no definite mediastinal, hilar or axillary adenopathy. Limited scanning through the upper abdomen reveals no significant abnormality. There are no focal osseous abnormalities. There is a PICC line terminating the SVC/RA junction. IMPRESSION: Bilateral consolidative opacities and pleural effusions, left greater than right as described above. [facility], , 12/18/2023 11:55 AM
[2023-12-18 13:09] LABS: HCT 25.7 % (39.0-53.0); HGB 7.7 gm/dL (13.0-17.5); Hypochromasia Marked; MCH 30.2 pg (25.0-35.0); MCHC 29.8 g/dL (31.0-37.0); MCV 101.2 fL (80.0-100.0); Macrocytosis Slight; Mean Platelet Volume 8.1; Platelet Count 338 k/uL (150-450); RBC 2.54 m/uL (4.30-5.90); WBC 5.2 k/uL (3.8-10.6)
--- NOTE | 2023-12-18 13:14 | P.PN ---
Subjective Progress Note Date: 12/18/23 77-year-old male patient, presented to the hospital because of abdominal pain, nausea, emesis, abdominal distention along with weakness, and hypotension. He also noted diminished urine output. His last bowel movement was more than 2 days ago. He is not passing any flatus. He was not treated secondary for rehabilitation following a fall with a fracture requiring surgery. In the emergency, the patient was found to have an acute on top of chronic kidney injury. Rich catheter was inserted and the patient immediately produced around 1 L of urine output. Patient was also given an NG tube and a total of 2.5 L of gastric material was aspirated immediately. CAT scan of the abdomen and pelvis was done in the emergency and the patient was found to have fluid-filled esophagus with dilated gas and fluid-filled stomach. Patient also had dilated small bowel with air fluid levels. The distal small bowel appeared collapsed and there was no clear focal transition identified. No focal bowel wall t hickening or inflammatory changes. The small bowel measures up to 4.3 cm in size. Gas and stool was present in the large bowel. Appendix was normal. No evidence of interval pneumoperitoneum. Small bilateral pleural effusions along with compressive atelectasis in the lung bases were noted. Blood work showed an acute on top of chronic kidney injury. The patient's creatinine was up to 4.23 with a BUN of 83 and his sodium was 122 with a potassium level of 6 and a chloride was 79 with a bicarb level of 32. Normal LFTs. proBNP level is 468. Amylase and lipase are within normal limits. The white cell count of 14.5 with a hemoglobin 10.1 and a platelet of 511. Coagulation profile is within normal limits. Chest x-ray showed cardiomegaly with mild pulm vascular congestion. For now, the patient is being resuscitated with IV fluids. He is on normal saline at rate of 100 cc an hour. He is also on norepinephrine which is running at 0.15 mcg/kg/min. He is on oxygen at 3 L/min nasal cannula. Triple-lumen catheter was established and the intensive care unit along with an arterial li ne. General surgery is on the case. Nephrology is also on the case. 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 He is an ex-smoker. 12/16/2023, the patient is being seen for a follow-up. The patient is much more awake compared to yesterday. Noted the patient was aggressive resuscitative IV fluids and over the past 24 hours, the patient received a total of 6 L of IV fluids. Currently on normal saline at rate of 100 cc an hour. The patient required high doses of pressors overnight and norepinephrine was as high as 0.5 mcg/kg/min. Vasopressin was added and currently norepinephrine is down to 0.32 mcg/kg/min. He is much more awake and alert and is communicating. He is on 3 L of O2 nasal cannula. NG tube is still in place and the total amount of output is given in the order of 3.6 L since the tube was placed. Urine output is improving and the patient is producing around 100 cc an hour. No fever. No chills. White cell count 11.7 with hemoglobin 8.8 and a platelet count of 578. Sodium is at 130, BUN 63 with a creatinine of 2.7. The potassium levels of 5.4 and a serum bicarb is at 20. CPK is 1024. Axes are normal. Serum cortisol was 16.9. proBNP level was 1360. Lactic acid level was ordered and results are still pending for now. Troponins at 0.034. His previous echocardiogram showed moderate aortic stenosis and preserved LV function. He is currently on O2 at 3 L. Chest x-ray shows a triple-lumen catheter in the left subclavian. At the same time, the patient has increased pulm vascular markings and some early i nfiltration of the left perihilar area. On 12/17/2023, the patient is being seen for a follow-up. The patient is, comfortable on 5 L of oxygen by nasal cannula. Continues to have a congested cough. NG tube is in place and output is minimal. Hemodynamically, is improved and the patient is still on norepinephrine running at 0.16 mcg/kg/min and the patient is also physiologic dose of vasopressin. The patient is on half-normal saline at rate of 130 cc an hour. Overall fluid balance is +1.9 L over the past 24 hours. Blood pressures improved and the patient's urine output is excellent for now. Meanwhile, he is afebrile. Hemodynamically he is improving and the blood pressure has essentially improved. We should be able to wean down the pressors. Meanwhile, the patient chest x-ray showing cardiomegaly and the patient has worsening left lower lobe pulmonary filtrate. This could be atel ectasis versus pneumonia. NG tube is in a good location. There is background cardiomegaly. The patient remains on IV Zosyn as a broad-spectrum antibiotic coverage for now. The patient is also on Lovenox 40 mg subcu for DVT prophylaxis. The white cell count is 7.6 with a hemoglobin of 7.6 and a platelet count of 398. BUN 38 with a creatinine of 1.2 and a sodium levels at 135 and potassium levels of 4.5. LFTs are essentially within normal limits. Bowel sounds are more active on today's evaluation. The patient remains n.p.o. for now. No other significant events overnight. 12/18/2023, I am seeing the patient for a follow-up. The patient is doing well. He is passing flatus. Had a bowel movement yesterday. Output from the G-tube is minimal. Based on that, I ended up removing the NG tube today. I noted some progressive worsening his oxygenation. Earlier this morning, the patient was placed on O2 at 15 L. The chest x-ray shows worsening in bilateral pulmonary filtrates. Based on that, I ordered a CAT scan of the chest to evaluate the patient's pulmonary findings and the CAT scan was completed this morning and it shows evidence of bilateral consolidation and opacities noted bilateral pleural effusion left more than right. Underlying pneumonia cannot be completely exclu ded. The patient's renal function has essentially normalized. The white cell count of 6.3 with a hemoglobin 7.6 and a platelet count of 366. The sodium is at 141, bicarb is at 27, BUN 22 with a creatinine of 0.9. LFTs are normal. The patient is awake and alert. He remains in atrial fibrillation. He was found to be slightly more tachycardic on today's evaluation. He remains on IV heparin fo r now. Antibiotic coverage is with IV Zosyn. Objective - Vital Signs Vital signs: Vital Signs Temp 97.8 F 12/18/23 04:00 Pulse 98 12/18/23 07:00 Resp 18 12/18/23 07:00 BP 119/63 12/18/23 07:00 Pulse Ox 94 L 12/18/23 07:00 FiO2 Intake & Output 12/17/23 12/18/23 12/18/23 18:59 06:59 18:59 Intake Total 1309.050 825.251 134.726 Output Total 1545 1105 70 Balance -235.950 -279.749 64.726 Weight 101 kg Intake: IV 1010 550 50 Piperacillin-Tazobactam 3 200 .375 gm In Sodium Chloride 0.9% 100 ml @ 25 mls/hr IVPB Q8H [facility] Rx#: [id number] Sodium Chloride 0.45% 1, 310 000 ml @ 50 mls/hr IV . Q20H [facility] Rx#:[id number] Sodium Chloride 0.9% 1, 500 550 50 000 ml @ 50 mls/hr IV . Q20H [facility] Rx#:[id number] Intake, IV Titration 299.050 275.251 84.726 Amount Heparin Sod,Pork in 0.45% 157.285 NaCl 25,000 unit In 0.45 % NaCl 1 250ml.bag @ 10. 03 UNITS/KG/HR 10 mls/hr IV .Q24H [facility] Rx#: [id number] Norepinephrine 8 mg In 269.980 66.966 84.726 Sodium Chloride 0.9% 250 ml @ 0.03 MCG/KG/MIN 5. 266 mls/hr IV .Q24H [facility] Rx#:[id number] Vasopressin 20 unit In 29.07 51 Sodium Chloride 0.9% 50 ml @ 0.03 UNITS/MIN 4.59 mls/hr IV .Q11H7M [facility] Rx# :[id number] Output: Urine 1545 1105 70 Other: Voiding Method Indwelling Catheter Indwelling Catheter ABP, PAP, CO, CI - Last Documented Arterial Blood Pressure 136/54 - Exam - Constitutional General appearance: no acute distress (The patient has an NG tube in place. No signs of an acute respiratory distress and the patient is currently on 3 L oxygen by nasal cannula.) the patient has an NG tube in place. Calm and comfortable. No acute distress. - EENT Eyes: EOMI Ears: negative: bulging, bullous, dull, erythema, fluid, myringotomy tube, obstructed by cerumen, scarring, unable to vistualize, other - Neck Neck: normal ROM Carotids: negative: upstroke normal, upstroke delayed, upstroke diminished, upstroke bounding, bruit absent, bruit present Thyroid: negative: normal size, enlarged, firm, nodule - Respiratory Respiratory: negative: CTA, diminished, dullness, rales, rhonchi, wheezing, prolonged expiration, prolonged inspiration, other - Cardiovascular Rhythm: regular Heart sounds: abnormal: S1, S2 Abnormal Heart Sounds: systolic murmur systolic murmur (2) Type: holo Location: apex Grade: III/ - Gastrointestinal General gastrointestinal: absent bowel sounds, distended Localized gastrointestinal: surgical scar: diffuse - Genitourinary Male genitourinary: enlarged prostate - Integumentary Integumentary: normal - Neurologic Neurologic: CNII-XII intact - Musculoskeletal Musculoskeletal: left sided weakness - Psychiatric Psychiatric: A&O x's 3 - Labs CBC & Chem 7: 12/18/23 05:53 12/18/23 05:53 Labs: Abnormal Lab Results - Last 24 Hours (Table) 12/17/23 12/17/23 12/18/23 Range/Units 16:45 22:11 05:53 RBC 2.56 L (4.30-5.90) m/uL Hgb 7.8 L (13.0-17.5) gm/dL Hct 25.1 L (39.0-53.0) % MCHC (31.0-37.0) g/dL Lymphocytes # 0.8 L (1.0-4.8) k/uL APTT 36.9 H (22.0-30.0) sec Chloride 109 H (98-107) mmol/L BUN 22 H (9-20) mg/dL Calcium 8.3 L (8.4-10.2) mg/dL Total Protein 5.2 L (6.3-8.2) g/dL Albumin 2.5 L (3.5-5.0) g/dL 12/18/23 12/18/23 Range/Units 05:53 05:53 RBC 2.50 L (4.30-5.90) m/uL Hgb 7.6 L (13.0-17.5) gm/dL Hct 24.8 L (39.0-53.0) % MCHC 30.8 L (31.0-37.0) g/dL Lymphocytes # 0.6 L (1.0-4.8) k/uL APTT 41.4 H (22.0-30.0) sec Chloride (98-107) mmol/L BUN (9-20) mg/dL Calcium (8.4-10.2) mg/dL Total Protein (6.3-8.2) g/dL Albumin (3.5-5.0) g/dL Microbiology - Last 24 Hours (Table) 12/16/23 09:18 Gram Stain - Preliminary Sputum Sputum Culture - Preliminary Assessment and Plan Plan: Small bowel obstruction with secondary abdominal pain and distention. Clinically improved and the patient has no output from the NG tube. Positive bowel sounds. NG tube was removed today and the patient will be transition to clear liquid diet. Acute kidney injury, recovered Acute hyperkalemia secondary to above, improving Moderately severe aortic stenosis Acute hypoxic respiratory failure, currently on 10 L of oxygen by nasal cannula. The patient has consolidation in the lung bases and bilateral pleural effusion left more than right. Hypotension, likely hypovolemic in nature in addition to presence of a moderately severe aortic stenosis which probably contributed to his significant drop in the blood pressure, recovered Recent hip fracture status post ORIF History of CVA maintained on Plavix with some residual left-sided weakness Hyperlipidemia Anemia of chronic disease Acute hyponatremia in the setting of obstructive uropathy and renal failure, improving Plan Keep the patient in the intensive care unit NG tube has been removed Clear liquid diet IV fluids to KVO No pressors for now Renal function has normalized CAT scan of the chest was noted and shows bilateral consolidation pleural effusions. Rule out underlying pneumonia. The patient is hypoxic respiratory failure currently on 10 L of oxygen by nasal cannula. Rich catheter has been inserted Monitor urine output and the rest of the electrolytes Nephrology consultation is appreciated Patient is currently on Zosyn. echocardiogram has been noted and the patient has moderate to severe aortic sten osis Will continue to follow make further recommendations based on progress.
--- NOTE | 2023-12-18 13:27 | P.PN ---
Subjective Progress Note Date: 12/18/23 History of Present Illness: The patient is a 77-year-old male who presented with progressive fatigue abdom inal pain was found to have ileus, hyponatremia and acute renal injury cardiology consultation was requested because of atrial fibrillation. The patient was in the hospital earlier this month after a fall and a fractured hip, underwent surgery. His echocardiogram preoperatively showed a preserved systolic function with moderate aortic stenosis and a mean gradient of 21 mmHg. He continues to be on vasopressor but at a lower dose. He went in atrial fibrillation earlier this morning with controlled ventricular response, asymptomatic. He has an underlying right bundle branch block and no prior atrial fibrillation during his hospitalization. He has no significant peripheral edema. His urine output has been good. He continues to have an NG tube but he is having flatus and has underwent further evaluation with abdominal x-ray today. Patient has a prior history of stroke and was on Plavix in the past. He had significant hypotension on presentation and received intravenous fluid December 17: The patient is feeling well, he continues to be in atrial fibrillation with controlled ventricle response with episodes with a heart rate up to the 1 teens. He continues to be on IV heparin. He is off norepinephrine and his vasopressin is being weaned. He had a CT scan of the chest that showed consolidation and possible pneumonia. He is passing flatus and tolerating oral intake. His urinary output is good. Medications: Aspirin 81 mg daily, IV heparin, nicotine patch, vasopressin Physical Examination: 77-year-old male, alert oriented,Blood pressure 144/60, Heart rate 110 Neck: Good carotid upstroke, no bruit, no jugular venous distention. Lungs: Decreased breath sounds at the bases Heart: Irregular rate and rhythm, S1-S2, no S3, no rub. Systolic ejection murmur. Abdomen: Soft nontender, positive bowel sounds no organomegaly. Extremities: +1 edema, intact distal pulses. Labs: Hemoglobin 7.7, BUN 22, creatinine 0.93, potassium 4.7 Impression: 1. Small bowel obstruction, resolved 2. Atrial fibrillation, new onset 3. Acute renal injury, resolved 4. Anemia 5. History of stroke 6. Moderate aortic stenosis Plan: 1. Start low-dose beta-pa 2. Add statin in view of the history of stroke 3. Continue IV heparin and monitor hemoglobin, if stable change to oral anticoagulation 4. Patient will need follow-up as an outpatient regarding his aortic valve 5. Depending on his progress further recommendations will be made Objective - Vital Signs Vital signs: Vital Signs Temp 97.6 F 12/18/23 12:00 Pulse 112 H 12/18/23 13:00 Resp 20 12/18/23 13:00 BP 122/71 12/18/23 12:45 Pulse Ox 98 12/18/23 13:00 FiO2 Intake & Output 12/17/23 12/18/23 12/18/23 18:59 06:59 18:59 Intake Total 1309.050 564.479 1526.866 Output Total 1545 1105 600 Balance -235.950 -279.749 619.866 Weight 101 kg 101 kg Intake: IV 1010 550 550 Piperacillin-Tazobactam 3 200 100 .375 gm In Sodium Chloride 0.9% 100 ml @ 25 mls/hr IVPB Q8H [facility] Rx#: [id number] Sodium Chloride 0.45% 1, 310 300 000 ml @ 50 mls/hr IV . Q20H [facility] Rx#:[id number] Sodium Chloride 0.9% 1, 500 550 150 000 ml @ 50 mls/hr IV . Q20H [facility] Rx#:[id number] Intake, IV Titration 299.050 275.251 179.866 Amount Heparin Sod,Pork in 0.45% 157.285 NaCl 25,000 unit In 0.45 % NaCl 1 250ml.bag @ 10. 03 UNITS/KG/HR 10 mls/hr IV .Q24H [facility] Rx#: [id number] Norepinephrine 8 mg In 269.980 66.966 128.866 Sodium Chloride 0.9% 250 ml @ 0.03 MCG/KG/MIN 5. 266 mls/hr IV .Q24H [facility] Rx#:[id number] Vasopressin 20 unit In 29.07 51 51 Sodium Chloride 0.9% 50 ml @ 0.03 UNITS/MIN 4.59 mls/hr IV .Q11H7M [facility] Rx# :[id number] Oral 490 Output: Urine 1545 1105 600 Other: Voiding Method Indwelling Catheter Indwelling Catheter Indwelling Catheter ABP, PAP, CO, CI - Last Documented Arterial Blood Pressure 144/57 - Labs CBC & Chem 7: 12/18/23 12:59 12/18/23 05:53 Labs: Abnormal Lab Results - Last 24 Hours (Table) 12/17/23 12/17/23 12/18/23 Range/Units 16:45 22:11 05:53 RBC 2.56 L (4.30-5.90) m/uL Hgb 7.8 L (13.0-17.5) gm/dL Hct 25.1 L (39.0-53.0) % MCV (80.0-100.0) fL MCHC (31.0-37.0) g/dL Lymphocytes # 0.8 L (1.0-4.8) k/uL APTT 36.9 H (22.0-30.0) sec Chloride 109 H (98-107) mmol/L BUN 22 H (9-20) mg/dL Calcium 8.3 L (8.4-10.2) mg/dL Total Protein 5.2 L (6.3-8.2) g/dL Albumin 2.5 L (3.5-5.0) g/dL 12/18/23 12/18/23 12/18/23 Range/Units 05:53 05:53 12:56 RBC 2.50 L (4.30-5.90) m/uL Hgb 7.6 L (13.0-17.5) gm/dL Hct 24.8 L (39.0-53.0) % MCV (80.0-100.0) fL MCHC 30.8 L (31.0-37.0) g/dL Lymphocytes # 0.6 L (1.0-4.8) k/uL APTT 41.4 H 65.3 H (22.0-30.0) sec Chloride (98-107) mmol/L BUN (9-20) mg/dL Calcium (8.4-10.2) mg/dL Total Protein (6.3-8.2) g/dL Albumin (3.5-5.0) g/dL 12/18/23 Range/Units 12:59 RBC 2.54 L (4.30-5.90) m/uL Hgb 7.7 L (13.0-17.5) gm/dL Hct 25.7 L (39.0-53.0) % MCV 101.2 H (80.0-100.0) fL MCHC 29.8 L (31.0-37.0) g/dL Lymphocytes # (1.0-4.8) k/uL APTT (22.0-30.0) sec Chloride (98-107) mmol/L BUN (9-20) mg/dL Calcium (8.4-10.2) mg/dL Total Protein (6.3-8.2) g/dL Albumin (3.5-5.0) g/dL Microbiology - Last 24 Hours (Table) 12/16/23 09:18 Gram Stain - Preliminary Sputum Sputum Culture - Preliminary
[2023-12-18] MEDS: ATORVASTATIN 40 MG TAB PO SCH (14:55)
[2023-12-18] MEDS: METOPROLOL TARTRATE 25 MG TAB PO SCH (14:56)
[2023-12-19 04:37] LABS: Basophils % (A) 0 %; Eosinophils # (A) 0.1 k/uL (0-0.7); Eosinophils % (A) 3 %; HCT 25.5 % (39.0-53.0); HGB 7.8 gm/dL (13.0-17.5); Hypochromasia Marked; Lymphocytes # (A) 0.7 k/uL (1.0-4.8); Lymphocytes % (A) 13 %; MCH 30.7 pg (25.0-35.0); MCHC 30.5 g/dL (31.0-37.0); MCV 100.6 fL (80.0-100.0); Mean Platelet Volume 6.7; Monocytes # (A) 0.2 k/uL (0-1.0); Monocytes % (A) 5 %; Neutrophils % (A) 78 %; Platelet Count 348 k/uL (150-450); RBC 2.53 m/uL (4.30-5.90); WBC 5.2 k/uL (3.8-10.6)
[2023-12-19 05:05] LABS: ALT 18 U/L (4-49); AST 30 U/L (17-59); African American GFR (CKD) >90 (>60 ml/min/1.73 sqM); Albumin 2.4 g/dL (3.5-5.0); Alkaline Phosphatase 75 U/L (38-126); Anion Gap -3 mmol/L; Blood Urea Nitrogen 18 mg/dL (9-20); Calcium 8.2 mg/dL (8.4-10.2); Carbon Dioxide 31 mmol/L (22-30); Chloride 110 mmol/L (98-107); Glucose 108 mg/dL (74-99); Non-African American GFR(CKD) 90 (>60 ml/min/1.73 sqM); Potassium 4.3 mmol/L (3.5-5.1); Sodium 138 mmol/L (137-145); Total Bilirubin 0.7 mg/dL (0.2-1.3); Total Protein 5.1 g/dL (6.3-8.2)
--- NOTE | 2023-12-19 08:05 | XR ---
EXAMINATION TYPE: XR chest 1V portable DATE OF EXAM: 12/19/2023 COMPARISON: 12/18/2023 HISTORY: Increasing O2 demand TECHNIQUE: Single frontal view of the chest is obtained. FINDINGS: A large opacity in involving the left mid and lower lung zones has decreased mildly in the interval w ith better aeration in the left lung apex. The opacity in the right lower lobe has worsened in the in terval most likely reflects increasing right pleural fluid. Left-sided PICC line tip is in the SVC/RA junction. There is been interval removal of the NG tube. There is no pneumothorax. IMPRESSION: 1. Increasing aeration in the left lung with a persistent large opacity reflecting pleural fluid and atelectasis or pneumonia. 2. Increasing opacity in the right lung base consistent with increasing pleural effusion. [facility], , 12/19/2023 8:02 AM
--- NOTE | 2023-12-19 08:10 | P.PN ---
Subjective Progress Note Date: 12/19/23 Chevy French, is a 77-year-old male who presented to [facility] emergency room due to abdominal pain and generalized weakness and hypotension. Patient was recently admitted to [facility] after sustaining a fall and having femur fracture he underwent surgery and was transferred to detention for rehab. He was evaluated in the emergency room vital examination on presentation revealed a temperature of 98.7 pulse 80 respiration 30 blood pressure 80/53 pulse ox 97% on 5 L nasal cannula Laboratory data revealed a white blood count of 14.5 hemoglobin 10.1 platelet count 511 sodium 122 potassium 6.0 chloride 79 BUN 83 creatinine 4.23 Testing in the emergency room revealed chest x-ray revealed low lung volumes with generalized hazy appearance which could represent atelectasis versus pulmonary edema, CT scan of the abdomen revealed dilated small bowel loops and stomach without clear focal transition point, and significantly distended urinary bladder with bilateral hydronephrosis. Patient was admitted to medical floor for further evaluation and treatment On 12/16/2023 patient was seen and examined in the ICU, he is alert and oriented in no distress, he is maintained on blood pressure support, triple lumen and arterial line inserted, patient is followed by critical care, he denies any chest pain, or shortness of breath, munoz catheter inserted yesterday, kidney function improving. On 12/17/2023 patient is alert and oriented. Patient remains in the ICU pressure supporting medication. Creatinine improving to 1.28 bun 38 potassium 4.8 sodium 135.current vital signs temp 98.1, heart rate 60, respiratory rate 20, blood pressure 1 today knee 6/41 with pulse ox of96% on 4 L. Patient remains with NG tube nothing by mouth. On 12/18/2023 patient was seen and examined in the ICU he is alert and oriented x 3 in no apparent distress, there is no fever or chills no headache or dizziness no chest pain no shortness of breath no cough no nausea or vomiting no abdominal pain no diarrhea no blood in the stools, patient is passing gas and having bowel movements, no burning with urination no frequency or urgency and no hematuria. Yesterday patient developed atrial fibrillation with rapid ventricular response, he was seen by cardiology and was started on IV heparin. On 12/19/2023 patient was seen and examined in the ICU, he is alert and oriented x 3 in no distress, there is no fever or chills no headache or dizziness no chest pain no shortness of breath no cough no nausea or vomiting no abdominal pain no diarrhea and no urinary symptoms. Patient still has Munoz catheter in. CT scan of the chest done yesterday revealed bilateral consolidative opacities and pleural effusion left greater than right. Patient is maintained on IV Zosyn, he is also maintained on IV heparin for new onset atrial fibrillation, pulmonary and cardiology are following. Objective - Vital Signs Vital signs: Vital Signs Temp 98.2 F 12/19/23 04:00 Pulse 73 12/19/23 07:00 Resp 29 H 12/19/23 07:00 BP 106/49 12/19/23 07:00 Pulse Ox 95 12/19/23 07:00 FiO2 Intake & Output 12/18/23 12/19/23 12/19/23 18:59 06:59 18:59 Intake Total 0515.353 9556.011 88 Output Total 895 590 50 Balance 568.091 9061.011 38 Weight 101 kg 102.7 kg Intake: IV 925 1228 88 0.9 70 10 Piperacillin-Tazobactam 3 100 225 .375 gm In Sodium Chloride 0.9% 100 ml @ 25 mls/hr IVPB Q8H [facility] Rx#: [id number] Pressure Bag 33 3 Sodium Chloride 0.45% 1, 675 75 000 ml @ 50 mls/hr IV . Q20H [facility] Rx#:[id number] Sodium Chloride 0.45% 1, 825 75 000 ml @ 75 mls/hr IV . [id number] [facility] Rx#:[id number] Sodium Chloride 0.9% 1, 150 000 ml @ 50 mls/hr IV . Q20H [facility] Rx#:[id number] Intake, IV Titration 273.831 267.011 Amount Heparin Sod,Pork in 0.45% 92.715 217.947 NaCl 25,000 unit In 0.45 % NaCl 1 250ml.bag @ 10. 03 UNITS/KG/HR 10 mls/hr IV .Q24H [facility] Rx#: [id number] Norepinephrine 8 mg In 128.866 49.064 Sodium Chloride 0.9% 250 ml @ 0.03 MCG/KG/MIN 5. 266 mls/hr IV .Q24H [facility] Rx#:[id number] Vasopressin 20 unit In 52.250 Sodium Chloride 0.9% 50 ml @ 0.03 UNITS/MIN 4.59 mls/hr IV .Q11H7M [facility] Rx# :[id number] Oral 490 1480 Output: Urine 895 590 50 Other: Voiding Method Indwelling Catheter Indwelling Catheter ABP, PAP, CO, CI - Last Documented Arterial Blood Pressure 99/42 - Exam In general patient is alert and oriented x 3 in no distress HEENT head normocephalic and atraumatic Neck is supple no JVD no goiter no lymphadenopathy no carotid bruit Chest examination is clear to auscultation no crackles no wheezing Cardiac exam reveals regular heart sounds S1 and S2 no gallops no murmurs Abdomen is soft with mild diffuse tenderness no organomegaly no palpable masses with sluggish bowel sounds Extremity exam reveals no edema no cyanosis or clubbing Neurological examination reveals no gross focal deficits - Labs CBC & Chem 7: 12/19/23 04:21 12/19/23 04:21 Labs: Abnormal Lab Results - Last 24 Hours (Table) 12/18/23 12/18/23 12/19/23 Range/Units 12:56 12:59 04:21 RBC 2.54 L 2.53 L (4.30-5.90) m/uL Hgb 7.7 L 7.8 L (13.0-17.5) gm/dL Hct 25.7 L 25.5 L (39.0-53.0) % MCV 101.2 H 100.6 H (80.0-100.0) fL MCHC 29.8 L 30.5 L (31.0-37.0) g/dL Lymphocytes # 0.7 L (1.0-4.8) k/uL APTT 65.3 H (22.0-30.0) sec Chloride (98-107) mmol/L Carbon Dioxide (22-30) mmol/L Glucose (74-99) mg/dL Calcium (8.4-10.2) mg/dL Total Protein (6.3-8.2) g/dL Albumin (3.5-5.0) g/dL 12/19/23 12/19/23 Range/Units 04:21 05:48 RBC (4.30-5.90) m/uL Hgb (13.0-17.5) gm/dL Hct (39.0-53.0) % MCV (80.0-100.0) fL MCHC (31.0-37.0) g/dL Lymphocytes # (1.0-4.8) k/uL APTT 81.4 H (22.0-30.0) sec Chloride 110 H (98-107) mmol/L Carbon Dioxide 31 H (22-30) mmol/L Glucose 108 H (74-99) mg/dL Calcium 8.2 L (8.4-10.2) mg/dL Total Protein 5.1 L (6.3-8.2) g/dL Albumin 2.4 L (3.5-5.0) g/dL Assessment and Plan Plan: Abdominal pain Dilated small bowels with possible ileus versus partial small bowel obstruction Urinary retention Hypotension Severe hyponatremia Acute kidney injury Electrolyte imbalance with severe hyperkalemia Leukocytosis Recent fall with right femur fracture with surgical repair New onset atrial fibrillation with rapid ventricular response during this admission At this time patient is admitted to medical floor Munoz catheter was inserted in the emergency room He was started on IV fluid Nephrology and urology consultation were requested For DVT prophylaxis subcu Bandar Will follow closely
--- NOTE | 2023-12-19 09:22 | P.PN ---
Subjective Progress Note Date: 12/19/23 Patient main stable. Abdomen soft nontender Patient continue receive supportive care. Objective - Vital Signs Vital signs: Vital Signs Temp 98.2 F 12/19/23 08:00 Pulse 66 12/19/23 08:00 Resp 23 12/19/23 08:00 BP 125/90 12/19/23 08:00 Pulse Ox 95 12/19/23 08:00 FiO2 Intake & Output 12/18/23 12/19/23 12/19/23 18:59 06:59 18:59 Intake Total 5126.206 9935.011 176 Output Total 895 590 100 Balance 911.221 6630.011 76 Weight 101 kg 102.7 kg Intake: IV 925 1228 176 0.9 70 20 Piperacillin-Tazobactam 3 100 225 .375 gm In Sodium Chloride 0.9% 100 ml @ 25 mls/hr IVPB Q8H [facility] Rx#: [id number] Pressure Bag 33 6 Sodium Chloride 0.45% 1, 675 75 000 ml @ 50 mls/hr IV . Q20H [facility] Rx#:[id number] Sodium Chloride 0.45% 1, 825 150 000 ml @ 75 mls/hr IV . [id number] [facility] Rx#:[id number] Sodium Chloride 0.9% 1, 150 000 ml @ 50 mls/hr IV . Q20H [facility] Rx#:[id number] Intake, IV Titration 273.831 267.011 Amount Heparin Sod,Pork in 0.45% 92.715 217.947 NaCl 25,000 unit In 0.45 % NaCl 1 250ml.bag @ 10. 03 UNITS/KG/HR 10 mls/hr IV .Q24H [facility] Rx#: [id number] Norepinephrine 8 mg In 128.866 49.064 Sodium Chloride 0.9% 250 ml @ 0.03 MCG/KG/MIN 5. 266 mls/hr IV .Q24H [facility] Rx#:[id number] Vasopressin 20 unit In 52.250 Sodium Chloride 0.9% 50 ml @ 0.03 UNITS/MIN 4.59 mls/hr IV .Q11H7M [facility] Rx# :[id number] Oral 490 1480 Output: Urine 895 590 100 Other: Voiding Method Indwelling Catheter Indwelling Catheter ABP, PAP, CO, CI - Last Documented Arterial Blood Pressure 115/48 - Labs CBC & Chem 7: 12/19/23 04:21 12/19/23 04:21 Labs: Abnormal Lab Results - Last 24 Hours (Table) 12/18/23 12/18/23 12/19/23 Range/Units 12:56 12:59 04:21 RBC 2.54 L 2.53 L (4.30-5.90) m/uL Hgb 7.7 L 7.8 L (13.0-17.5) gm/dL Hct 25.7 L 25.5 L (39.0-53.0) % MCV 101.2 H 100.6 H (80.0-100.0) fL MCHC 29.8 L 30.5 L (31.0-37.0) g/dL Lymphocytes # 0.7 L (1.0-4.8) k/uL APTT 65.3 H (22.0-30.0) sec Chloride (98-107) mmol/L Carbon Dioxide (22-30) mmol/L Glucose (74-99) mg/dL Calcium (8.4-10.2) mg/dL Total Protein (6.3-8.2) g/dL Albumin (3.5-5.0) g/dL 12/19/23 12/19/23 Range/Units 04:21 05:48 RBC (4.30-5.90) m/uL Hgb (13.0-17.5) gm/dL Hct (39.0-53.0) % MCV (80.0-100.0) fL MCHC (31.0-37.0) g/dL Lymphocytes # (1.0-4.8) k/uL APTT 81.4 H (22.0-30.0) sec Chloride 110 H (98-107) mmol/L Carbon Dioxide 31 H (22-30) mmol/L Glucose 108 H (74-99) mg/dL Calcium 8.2 L (8.4-10.2) mg/dL Total Protein 5.1 L (6.3-8.2) g/dL Albumin 2.4 L (3.5-5.0) g/dL Microbiology - Last 24 Hours (Table) 12/16/23 09:18 Gram Stain - Final Sputum Sputum Culture - Final
--- NOTE | 2023-12-19 09:29 | P.PN ---
Subjective Progress Note Date: 12/19/23 History of Present Illness: The patient is a 77-year-old male who presented with progressive fatigue abdom inal pain was found to have ileus, hyponatremia and acute renal injury cardiology consultation was requested because of atrial fibrillation. The patient was in the hospital earlier this month after a fall and a fractured hip, underwent surgery. His echocardiogram preoperatively showed a preserved systolic function with moderate aortic stenosis and a mean gradient of 21 mmHg. He continues to be on vasopressor but at a lower dose. He went in atrial fibrillation earlier this morning with controlled ventricular response, asymptomatic. He has an underlying right bundle branch block and no prior atrial fibrillation during his hospitalization. He has no significant peripheral edema. His urine output has been good. He continues to have an NG tube but he is having flatus and has underwent further evaluation with abdominal x-ray today. Patient has a prior history of stroke and was on Plavix in the past. He had significant hypotension on presentation and received intravenous fluid December 17: The patient is feeling well, he continues to be in atrial fibrillation with controlled ventricle response with episodes with a heart rate up to the 1 teens. He continues to be on IV heparin. He is off norepinephrine and his vasopressin is being weaned. He had a CT scan of the chest that showed consolidation and possible pneumonia. He is passing flatus and tolerating oral intake. His urinary output is good. December 18: The patient is back in sinus mechanism this morning with sinus bradycardia. He is feeling well overall, denies any chest discomfort, dizziness or palpitations. He is off vasopressors. He has no nausea or vomiting. His chest x-ray is suggestive of pneumonia and pleural effusion. Medications: Aspirin 81 mg daily, IV heparin, nicotine patch, metoprolol to tar trate 12.5 mg twice a day, Lipitor 40 mg daily Physical Examination: 77-year-old male, alert oriented,Blood pressure 125/90, Heart rate 50 Neck: Good carotid upstroke, no bruit, no jugular venous distention. Lungs: Decreased breath sounds at the bases Heart: Irregular rate and rhythm, S1-S2, no S3, no rub. Systolic ejection murmur. Abdomen: Soft nontender, positive bowel sounds no organomegaly. Extremities: +1 edema, more on the right side, intact distal pulses. Labs: Hemoglobin 7.8, BUN 18, creatinine 0.75, potassium 4.3 Impression: 1. Small bowel obstruction, resolved 2. Atrial fibrillation, new onset, paroxysmal, back in sinus mechanism 3. Acute renal injury, resolved 4. Anemia 5. History of stroke 6. Moderate aortic stenosis Plan: 1. Decrease beta-pa in view of sinus bradycardia 2. Start oral anticoagulation 3. Follow rhythm for further adjustment 4. Increase physical activity 5. Treatment of pneumonia per pulmonary Objective - Vital Signs Vital signs: Vital Signs Temp 98.2 F 12/19/23 08:00 Pulse 66 12/19/23 08:00 Resp 23 12/19/23 08:00 BP 125/90 12/19/23 08:00 Pulse Ox 95 12/19/23 08:00 FiO2 Intake & Output 12/18/23 12/19/23 12/19/23 18:59 06:59 18:59 Intake Total 9211.856 4051.011 176 Output Total 895 590 100 Balance 374.183 6835.011 76 Weight 101 kg 102.7 kg Intake: IV 925 1228 176 0.9 70 20 Piperacillin-Tazobactam 3 100 225 .375 gm In Sodium Chloride 0.9% 100 ml @ 25 mls/hr IVPB Q8H [facility] Rx#: [id number] Pressure Bag 33 6 Sodium Chloride 0.45% 1, 675 75 000 ml @ 50 mls/hr IV . Q20H [facility] Rx#:[id number] Sodium Chloride 0.45% 1, 825 150 000 ml @ 75 mls/hr IV . [id number] [facility] Rx#:[id number] Sodium Chloride 0.9% 1, 150 000 ml @ 50 mls/hr IV . Q20H [facility] Rx#:[id number] Intake, IV Titration 273.831 267.011 Amount Heparin Sod,Pork in 0.45% 92.715 217.947 NaCl 25,000 unit In 0.45 % NaCl 1 250ml.bag @ 10. 03 UNITS/KG/HR 10 mls/hr IV .Q24H [facility] Rx#: [id number] Norepinephrine 8 mg In 128.866 49.064 Sodium Chloride 0.9% 250 ml @ 0.03 MCG/KG/MIN 5. 266 mls/hr IV .Q24H [facility] Rx#:[id number] Vasopressin 20 unit In 52.250 Sodium Chloride 0.9% 50 ml @ 0.03 UNITS/MIN 4.59 mls/hr IV .Q11H7M [facility] Rx# :[id number] Oral 490 1480 Output: Urine 895 590 100 Other: Voiding Method Indwelling Catheter Indwelling Catheter ABP, PAP, CO, CI - Last Documented Arterial Blood Pressure 115/48 - Labs CBC & Chem 7: 12/19/23 04:21 12/19/23 04:21 Labs: Abnormal Lab Results - Last 24 Hours (Table) 12/18/23 12/18/23 12/19/23 Range/Units 12:56 12:59 04:21 RBC 2.54 L 2.53 L (4.30-5.90) m/uL Hgb 7.7 L 7.8 L (13.0-17.5) gm/dL Hct 25.7 L 25.5 L (39.0-53.0) % MCV 101.2 H 100.6 H (80.0-100.0) fL MCHC 29.8 L 30.5 L (31.0-37.0) g/dL Lymphocytes # 0.7 L (1.0-4.8) k/uL APTT 65.3 H (22.0-30.0) sec Chloride (98-107) mmol/L Carbon Dioxide (22-30) mmol/L Glucose (74-99) mg/dL Calcium (8.4-10.2) mg/dL Total Protein (6.3-8.2) g/dL Albumin (3.5-5.0) g/dL 12/19/23 12/19/23 Range/Units 04:21 05:48 RBC (4.30-5.90) m/uL Hgb (13.0-17.5) gm/dL Hct (39.0-53.0) % MCV (80.0-100.0) fL MCHC (31.0-37.0) g/dL Lymphocytes # (1.0-4.8) k/uL APTT 81.4 H (22.0-30.0) sec Chloride 110 H (98-107) mmol/L Carbon Dioxide 31 H (22-30) mmol/L Glucose 108 H (74-99) mg/dL Calcium 8.2 L (8.4-10.2) mg/dL Total Protein 5.1 L (6.3-8.2) g/dL Albumin 2.4 L (3.5-5.0) g/dL Microbiology - Last 24 Hours (Table) 12/16/23 09:18 Gram Stain - Final Sputum Sputum Culture - Final
--- NOTE | 2023-12-19 10:32 | P.PN ---
Subjective Patient is seen in follow-up for acute kidney injury. Renal function back to baseline. Nonoliguric. Off vasopressors. IV fluids discontinued this morning. Vital signs are stable. General: Resting in bed. HEENT: NG tube removed. On nasal cannula. LUNGS: Scattered rhonchi. HEART: Rate and Rhythm are regular. ABDOMEN: Nontender. Distention noted. EXTREMITITES: No edema. Objective - Vital Signs Vital signs: Vital Signs Temp 98.2 F 12/19/23 08:00 Pulse 54 L 12/19/23 10:00 Resp 12 12/19/23 10:00 BP 120/60 12/19/23 10:00 Pulse Ox 96 12/19/23 10:00 FiO2 Intake & Output 12/18/23 12/19/23 12/19/23 18:59 06:59 18:59 Intake Total 9072.249 4906.011 782 Output Total 895 590 160 Balance 811.575 2623.011 622 Weight 101 kg 102.7 kg Intake: IV 925 1228 302 0.9 70 40 Piperacillin-Tazobactam 3 100 225 .375 gm In Sodium Chloride 0.9% 100 ml @ 25 mls/hr IVPB Q8H [facility] Rx#: [id number] Pressure Bag 33 12 Sodium Chloride 0.45% 1, 825 250 000 ml @ 10 mls/hr IV . Q24H [facility] Rx#:[id number] Sodium Chloride 0.45% 1, 675 75 000 ml @ 50 mls/hr IV . Q20H [facility] Rx#:[id number] Sodium Chloride 0.9% 1, 150 000 ml @ 50 mls/hr IV . Q20H [facility] Rx#:[id number] Intake, IV Titration 273.831 267.011 Amount Heparin Sod,Pork in 0.45% 92.715 217.947 NaCl 25,000 unit In 0.45 % NaCl 1 250ml.bag @ 10. 03 UNITS/KG/HR 10 mls/hr IV .Q24H [facility] Rx#: [id number] Norepinephrine 8 mg In 128.866 49.064 Sodium Chloride 0.9% 250 ml @ 0.03 MCG/KG/MIN 5. 266 mls/hr IV .Q24H [facility] Rx#:[id number] Vasopressin 20 unit In 52.250 Sodium Chloride 0.9% 50 ml @ 0.03 UNITS/MIN 4.59 mls/hr IV .Q11H7M [facility] Rx# :[id number] Oral 490 1480 480 Output: Urine 895 590 160 Other: Voiding Method Indwelling Catheter Indwelling Catheter Indwelling Catheter ABP, PAP, CO, CI - Last Documented Arterial Blood Pressure 107/39 - Labs CBC & Chem 7: 12/19/23 04:21 12/19/23 04:21 Labs: Abnormal Lab Results - Last 24 Hours (Table) 12/18/23 12/18/23 12/19/23 Range/Units 12:56 12:59 04:21 RBC 2.54 L 2.53 L (4.30-5.90) m/uL Hgb 7.7 L 7.8 L (13.0-17.5) gm/dL Hct 25.7 L 25.5 L (39.0-53.0) % MCV 101.2 H 100.6 H (80.0-100.0) fL MCHC 29.8 L 30.5 L (31.0-37.0) g/dL Lymphocytes # 0.7 L (1.0-4.8) k/uL APTT 65.3 H (22.0-30.0) sec Chloride (98-107) mmol/L Carbon Dioxide (22-30) mmol/L Glucose (74-99) mg/dL Calcium (8.4-10.2) mg/dL Total Protein (6.3-8.2) g/dL Albumin (3.5-5.0) g/dL 12/19/23 12/19/23 Range/Units 04:21 05:48 RBC (4.30-5.90) m/uL Hgb (13.0-17.5) gm/dL Hct (39.0-53.0) % MCV (80.0-100.0) fL MCHC (31.0-37.0) g/dL Lymphocytes # (1.0-4.8) k/uL APTT 81.4 H (22.0-30.0) sec Chloride 110 H (98-107) mmol/L Carbon Dioxide 31 H (22-30) mmol/L Glucose 108 H (74-99) mg/dL Calcium 8.2 L (8.4-10.2) mg/dL Total Protein 5.1 L (6.3-8.2) g/dL Albumin 2.4 L (3.5-5.0) g/dL Microbiology - Last 24 Hours (Table) 12/16/23 09:18 Gram Stain - Final Sputum Sputum Culture - Final Assessment and Plan Plan: Assessment: 1. Acute kidney injury secondary to ATN secondary to hypotension and urinary r etention. Creatinine 4.23 on admission and is improved to 0.75 today. Creatinine 0.9 dated November 30, 2023. 2. Bilateral hydronephrosis and urinary retention. Currently has Rich catheter. Seen by urology. No interventions planned at this time. Voiding trial prior to discharge. 3. Hyponatremia secondary to acute kidney injury and urinary retention. Further worsened with the use of thiazide diuretic outpatient. Improved. 4. Abdominal pain. Ileus versus bowel obstruction. Surgery following. 5. Chronic diastolic CHF and moderate aortic stenosis. 6. Hyperkalemia secondary to acute kidney injury, urinary retention and use of SELINA inhibitor. Improved. 7. Recent hip fracture status post surgical repair. 8. Shock now off vasopressors. Plan: Now off IV fluids. On clear liquid diet. Avoid nephrotoxins. I will sign off. Please call with any questions or concerns
[2023-12-19] MEDS: APIXABAN 5 MG TAB PO SCH (11:26)
--- NOTE | 2023-12-19 13:08 | P.PN ---
Subjective Progress Note Date: 12/19/23 77-year-old male patient, presented to the hospital because of abdominal pain, nausea, emesis, abdominal distention along with weakness, and hypotension. He also noted diminished urine output. His last bowel movement was more than 2 days ago. He is not passing any flatus. He was not treated secondary for rehabilitation following a fall with a fracture requiring surgery. In the emergency, the patient was found to have an acute on top of chronic kidney injury. Rich catheter was inserted and the patient immediately produced around 1 L of urine output. Patient was also given an NG tube and a total of 2.5 L of gastric material was aspirated immediately. CAT scan of the abdomen and pelvis was done in the emergency and the patient was found to have fluid-filled esophagus with dilated gas and fluid-filled stomach. Patient also had dilated small bowel with air fluid levels. The distal small bowel appeared collapsed and there was no clear focal transition identified. No focal bowel wall t hickening or inflammatory changes. The small bowel measures up to 4.3 cm in size. Gas and stool was present in the large bowel. Appendix was normal. No evidence of interval pneumoperitoneum. Small bilateral pleural effusions along with compressive atelectasis in the lung bases were noted. Blood work showed an acute on top of chronic kidney injury. The patient's creatinine was up to 4.23 with a BUN of 83 and his sodium was 122 with a potassium level of 6 and a chloride was 79 with a bicarb level of 32. Normal LFTs. proBNP level is 468. Amylase and lipase are within normal limits. The white cell count of 14.5 with a hemoglobin 10.1 and a platelet of 511. Coagulation profile is within normal limits. Chest x-ray showed cardiomegaly with mild pulm vascular congestion. For now, the patient is being resuscitated with IV fluids. He is on normal saline at rate of 100 cc an hour. He is also on norepinephrine which is running at 0.15 mcg/kg/min. He is on oxygen at 3 L/min nasal cannula. Triple-lumen catheter was established and the intensive care unit along with an arterial li ne. General surgery is on the case. Nephrology is also on the case. 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 He is an ex-smoker. 12/16/2023, the patient is being seen for a follow-up. The patient is much more awake compared to yesterday. Noted the patient was aggressive resuscitative IV fluids and over the past 24 hours, the patient received a total of 6 L of IV fluids. Currently on normal saline at rate of 100 cc an hour. The patient required high doses of pressors overnight and norepinephrine was as high as 0.5 mcg/kg/min. Vasopressin was added and currently norepinephrine is down to 0.32 mcg/kg/min. He is much more awake and alert and is communicating. He is on 3 L of O2 nasal cannula. NG tube is still in place and the total amount of output is given in the order of 3.6 L since the tube was placed. Urine output is improving and the patient is producing around 100 cc an hour. No fever. No chills. White cell count 11.7 with hemoglobin 8.8 and a platelet count of 578. Sodium is at 130, BUN 63 with a creatinine of 2.7. The potassium levels of 5.4 and a serum bicarb is at 20. CPK is 1024. Axes are normal. Serum cortisol was 16.9. proBNP level was 1360. Lactic acid level was ordered and results are still pending for now. Troponins at 0.034. His previous echocardiogram showed moderate aortic stenosis and preserved LV function. He is currently on O2 at 3 L. Chest x-ray shows a triple-lumen catheter in the left subclavian. At the same time, the patient has increased pulm vascular markings and some early i nfiltration of the left perihilar area. On 12/17/2023, the patient is being seen for a follow-up. The patient is, comfortable on 5 L of oxygen by nasal cannula. Continues to have a congested cough. NG tube is in place and output is minimal. Hemodynamically, is improved and the patient is still on norepinephrine running at 0.16 mcg/kg/min and the patient is also physiologic dose of vasopressin. The patient is on half-normal saline at rate of 130 cc an hour. Overall fluid balance is +1.9 L over the past 24 hours. Blood pressures improved and the patient's urine output is excellent for now. Meanwhile, he is afebrile. Hemodynamically he is improving and the blood pressure has essentially improved. We should be able to wean down the pressors. Meanwhile, the patient chest x-ray showing cardiomegaly and the patient has worsening left lower lobe pulmonary filtrate. This could be atel ectasis versus pneumonia. NG tube is in a good location. There is background cardiomegaly. The patient remains on IV Zosyn as a broad-spectrum antibiotic coverage for now. The patient is also on Lovenox 40 mg subcu for DVT prophylaxis. The white cell count is 7.6 with a hemoglobin of 7.6 and a platelet count of 398. BUN 38 with a creatinine of 1.2 and a sodium levels at 135 and potassium levels of 4.5. LFTs are essentially within normal limits. Bowel sounds are more active on today's evaluation. The patient remains n.p.o. for now. No other significant events overnight. 12/18/2023, I am seeing the patient for a follow-up. The patient is doing well. He is passing flatus. Had a bowel movement yesterday. Output from the G-tube is minimal. Based on that, I ended up removing the NG tube today. I noted some progressive worsening his oxygenation. Earlier this morning, the patient was placed on O2 at 15 L. The chest x-ray shows worsening in bilateral pulmonary filtrates. Based on that, I ordered a CAT scan of the chest to evaluate the patient's pulmonary findings and the CAT scan was completed this morning and it shows evidence of bilateral consolidation and opacities noted bilateral pleural effusion left more than right. Underlying pneumonia cannot be completely exclu ded. The patient's renal function has essentially normalized. The white cell count of 6.3 with a hemoglobin 7.6 and a platelet count of 366. The sodium is at 141, bicarb is at 27, BUN 22 with a creatinine of 0.9. LFTs are normal. The patient is awake and alert. He remains in atrial fibrillation. He was found to be slightly more tachycardic on today's evaluation. He remains on IV heparin fo r now. Antibiotic coverage is with IV Zosyn. On today's evaluation of 12/19/2023, the patient is being seen for a follow-up. Patient is currently on 3 days of oxygen by nasal cannula. Taking clear liquid diet. He is on half-normal saline which is running at 75 cc an hour. No nausea. No vomiting. Abdominal pain. No chest pain. He has been started on IV heparin regarding episode of atrial fibrillation. He is also on metoprolol 25 mg twice a day. His blood work shows a WBC count of 5.2 with a hemoglobin 7.8 and platelet count of 348. Sodium is at 138 with a potassium level of 4.3, bicarb is at 31, BUN is 18 with a creatinine of 0.7. LFTs are within normal limits. Awake and alert and communicating. No other significant events overnight. Objective - Vital Signs Vital signs: Vital Signs Temp 98.2 F 12/19/23 08:00 Pulse 66 12/19/23 08:00 Resp 23 12/19/23 08:00 BP 125/90 12/19/23 08:00 Pulse Ox 95 12/19/23 08:00 FiO2 Intake & Output 12/18/23 12/19/23 12/19/23 18:59 06:59 18:59 Intake Total 9020.485 6222.011 176 Output Total 895 590 100 Balance 861.932 8237.011 76 Weight 101 kg 102.7 kg Intake: IV 925 1228 176 0.9 70 20 Piperacillin-Tazobactam 3 100 225 .375 gm In Sodium Chloride 0.9% 100 ml @ 25 mls/hr IVPB Q8H [facility] Rx#: [id number] Pressure Bag 33 6 Sodium Chloride 0.45% 1, 675 75 000 ml @ 50 mls/hr IV . Q20H [facility] Rx#:[id number] Sodium Chloride 0.45% 1, 825 150 000 ml @ 75 mls/hr IV . [id number] [facility] Rx#:[id number] Sodium Chloride 0.9% 1, 150 000 ml @ 50 mls/hr IV . Q20H [facility] Rx#:[id number] Intake, IV Titration 273.831 267.011 Amount Heparin Sod,Pork in 0.45% 92.715 217.947 NaCl 25,000 unit In 0.45 % NaCl 1 250ml.bag @ 10. 03 UNITS/KG/HR 10 mls/hr IV .Q24H [facility] Rx#: [id number] Norepinephrine 8 mg In 128.866 49.064 Sodium Chloride 0.9% 250 ml @ 0.03 MCG/KG/MIN 5. 266 mls/hr IV .Q24H [facility] Rx#:[id number] Vasopressin 20 unit In 52.250 Sodium Chloride 0.9% 50 ml @ 0.03 UNITS/MIN 4.59 mls/hr IV .[id number] [facility] Rx# :[id number] Oral 490 1480 Output: Urine 895 590 100 Other: Voiding Method Indwelling Catheter Indwelling Catheter ABP, PAP, CO, CI - Last Documented Arterial Blood Pressure 115/48 - Exam - Constitutional General appearance: no acute distress (The patient has an NG tube in place. No signs of an acute respiratory distress and the patient is currently on 3 L oxygen by nasal cannula.) the NG tube has been removed - EENT Eyes: EOMI Ears: negative: bulging, bullous, dull, erythema, fluid, myringotomy tube, obstructed by cerumen, scarring, unable to vistualize, other - Neck Neck: normal ROM Carotids: negative: upstroke normal, upstroke delayed, upstroke diminished, upstroke bounding, bruit absent, bruit present Thyroid: negative: normal size, enlarged, firm, nodule - Respiratory Respiratory: negative: CTA, diminished, dullness, rales, rhonchi, wheezing, prolonged expiration, prolonged inspiration, other - Cardiovascular Rhythm: regular Heart sounds: abnormal: S1, S2 Abnormal Heart Sounds: systolic murmur systolic murmur (2) Type: holo Location: apex Grade: III/ - Gastrointestinal General gastrointestinal: Bowel sounds are present and there is no significant abdominal distention. No direct tenderness rebound or guarding Localized gastrointestinal: surgical scar: diffuse - Genitourinary Male genitourinary: enlarged prostate - Integumentary Integumentary: normal - Neurologic Neurologic: CNII-XII intact - Musculoskeletal Musculoskeletal: left sided weakness - Psychiatric Psychiatric: A&O x's 3 - Labs CBC & Chem 7: 12/19/23 04:21 12/19/23 04:21 Labs: Abnormal Lab Results - Last 24 Hours (Table) 12/18/23 12/18/23 12/19/23 Range/Units 12:56 12:59 04:21 RBC 2.54 L 2.53 L (4.30-5.90) m/uL Hgb 7.7 L 7.8 L (13.0-17.5) gm/dL Hct 25.7 L 25.5 L (39.0-53.0) % MCV 101.2 H 100.6 H (80.0-100.0) fL MCHC 29.8 L 30.5 L (31.0-37.0) g/dL Lymphocytes # 0.7 L (1.0-4.8) k/uL APTT 65.3 H (22.0-30.0) sec Chloride (98-107) mmol/L Carbon Dioxide (22-30) mmol/L Glucose (74-99) mg/dL Calcium (8.4-10.2) mg/dL Total Protein (6.3-8.2) g/dL Albumin (3.5-5.0) g/dL 12/19/23 12/19/23 Range/Units 04:21 05:48 RBC (4.30-5.90) m/uL Hgb (13.0-17.5) gm/dL Hct (39.0-53.0) % MCV (80.0-100.0) fL MCHC (31.0-37.0) g/dL Lymphocytes # (1.0-4.8) k/uL APTT 81.4 H (22.0-30.0) sec Chloride 110 H (98-107) mmol/L Carbon Dioxide 31 H (22-30) mmol/L Glucose 108 H (74-99) mg/dL Calcium 8.2 L (8.4-10.2) mg/dL Total Protein 5.1 L (6.3-8.2) g/dL Albumin 2.4 L (3.5-5.0) g/dL Assessment and Plan Plan: Small bowel obstruction with secondary abdominal pain and distention, and c linically improved and NG tube was removed on 12/18/2023 General Surgery is on the case Acute kidney injury, recovered Acute hyperkalemia secondary to above, improving Moderately severe aortic stenosis Acute hypoxic respiratory failure, currently on 2 L of oxygen by nasal cannula. The patient has consolidation in the lung bases and bilateral pleural effusion left more than right. Hypotension, likely hypovolemic in nature in addition to presence of a moderately severe aortic stenosis which probably contributed to his significant drop in the blood pressure, recovered Recent hip fracture status post ORIF History of CVA maintained on Plavix with some residual left-sided weakness Hyperlipidemia Anemia of chronic disease Acute hyponatremia in the setting of obstructive uropathy and renal failure, improving Plan Keep the patient in the intensive care unit NG tube has been removed Clear liquid diet and advance diet as tolerated IV fluids to KVO No pressors for now Renal function has normalized Discontinued IV heparin switch the patient to Eliquis 5 mg p.o. twice a day Decrease the metoprolol dose to 12.5 mg twice a day IV fluids to KVO Rich catheter has been inserted Monitor urine output and the rest of the electrolytes Nephrology consultation is appreciated Patient is currently on Zosyn. echocardiogram has been noted and the patient has moderate to severe aortic stenosis Will continue to follow make further recommendations based on progress.
[2023-12-19 13:40] LABS: HCT 26.9 % (39.0-53.0); HGB 8.1 gm/dL (13.0-17.5); Hypochromasia Marked; MCHC 29.9 g/dL (31.0-37.0); MCV 100.4 fL (80.0-100.0); Mean Platelet Volume 7.2; Platelet Count 361 k/uL (150-450); RBC 2.68 m/uL (4.30-5.90); RDW 12.9 % (11.5-15.5); WBC 5.2 k/uL (3.8-10.6)
[2023-12-19] MEDS: SODIUM CHLORIDE 0.9% 500 ML 500 ML IV ONE (16:13)
[2023-12-19] MEDS: METOPROLOL TARTRATE 12.5 MG TAB PO SCH (21:06)
[2023-12-20 06:01] LABS: African American GFR (CKD) >90 (>60 ml/min/1.73 sqM); Anion Gap -1 mmol/L; Blood Urea Nitrogen 14 mg/dL (9-20); Calcium 8.3 mg/dL (8.4-10.2); Carbon Dioxide 31 mmol/L (22-30); Chloride 107 mmol/L (98-107); Glucose 101 mg/dL (74-99); Non-African American GFR(CKD) >90 (>60 ml/min/1.73 sqM); Potassium 4.4 mmol/L (3.5-5.1); Sodium 137 mmol/L (137-145)
[2023-12-20 06:03] LABS: Basophils % (A) 0 %; Eosinophils # (A) 0.3 k/uL (0-0.7); Eosinophils % (A) 6 %; HCT 26.2 % (39.0-53.0); HGB 7.8 gm/dL (13.0-17.5); Hypochromasia Marked; Lymphocytes # (A) 0.7 k/uL (1.0-4.8); Lymphocytes % (A) 14 %; MCH 29.9 pg (25.0-35.0); MCV 99.7 fL (80.0-100.0); Mean Platelet Volume 7.6; Monocytes # (A) 0.3 k/uL (0-1.0); Monocytes % (A) 6 %; Neutrophils # (A) 3.6 k/uL (1.3-7.7); Neutrophils % (A) 74 %; Platelet Count 328 k/uL (150-450); RBC 2.62 m/uL (4.30-5.90); WBC 4.9 k/uL (3.8-10.6)
--- NOTE | 2023-12-20 10:02 | P.PN ---
Subjective History of Present Illness: The patient is a 77-year-old male who presented with progressive fatigue abdominal pain was found to have ileus, hyponatremia and acute renal injury cardiology consultation was requested because of atrial fibrillation. The patient was in the hospital earlier this month after a fall and a fractured hip, underwent surgery. His echocardiogram preoperatively showed a preserved systolic function with moderate aortic stenosis and a mean gradient of 21 mmHg. He continues to be on vasopressor but at a lower dose. He went in atrial fibrillation earlier this morning with controlled ventricular response, asymptomatic. He has an underlying right bundle branch block and no prior atrial fibrillation during his hospitalization. He has no significant peripheral edema. His urine output has been good. He continues to have an NG tube but he is having flatus and has underwent further evaluation with abdominal x-ray today. Patient has a prior history of stroke and was on Plavix in the past. He had significant hypotension on presentation and received intravenous fluid December 17: The patient is feeling well, he continues to be in atrial fibrillation with controlled ventricle response with episodes with a heart rate up to the 1 teens. He continues to be on IV heparin. He is off norepinephrine and his vasopressin is being weaned. He had a CT scan of the chest that showed consolidation and possible pneumonia. He is passing flatus and tolerating oral intake. His urinary output is good. December 18: The patient is back in sinus mechanism this morning with sinus bradycardia. He is feeling well overall, denies any chest discomfort, dizziness or palpitations. He is off vasopressors. He has no nausea or vomiting. His chest x-ray is suggestive of pneumonia and pleural effusion. Medications: Aspirin 81 mg daily, IV heparin, nicotine patch, metoprolol to tartrate 12.5 mg twice a day, Lipitor 40 mg daily 12/19 patient seen and examined. Patient denies any chest pain or shortness breath. Has not had a bowel movement per nursing. Heart rates in the 50s to 60s in sinus rhythm however drops down into the 40s at time with decrease in blood pressure is well. He is not actually symptomatic during these episodes. His metoprolol however was decreased however still having episodes and temporarily needed to go back on vasopressors. Hemoglobin borderline at 7.8.no hematochezia or melena and tolerating eliquis. Physical Examination: Neck: Good carotid upstroke, no bruit, no jugular venous distention. Lungs: Decreased breath sounds at the bases Heart: Irregular rate and rhythm, S1-S2, no S3, no rub. Systolic ejection murmur. Abdomen: Soft nontender, positive bowel sounds no organomegaly. Extremities: +1 edema, more on the right side, intact distal pulses. Labs: Hemoglobin 7.8, BUN 18, creatinine 0.75, potassium 4.3 Impression: 1. Small bowel obstruction, resolved 2. Atrial fibrillation, new onset, paroxysmal, back in sinus mechanism 3. Acute renal injury, resolved 4. Anemia 5. History of stroke 6. Moderate aortic stenosis Plan: 1. Stop beta-pa in view of sinus bradycardia and hypotension 2. Continue oral anticoagulation however stop aspirin given decreased globin. No active GI bleed however check Hemoccults when he has another stool. 3. if he has repeat A. fib likely trial of rhythm control. Long-term ablation may be a good option for him. Objective - Vital Signs Vital signs: Vital Signs Temp 97.7 F 12/20/23 08:00 Pulse 70 12/20/23 09:00 Resp 26 H 12/20/23 09:00 BP 135/45 12/20/23 09:00 Pulse Ox 96 12/20/23 09:00 FiO2 Intake & Output 12/19/23 12/20/23 12/20/23 18:59 06:59 18:59 Intake Total 2106 243.34 113.232 Output Total 395 405 210 Balance 1711 -161.66 -96.768 Weight 102.7 kg Intake: IV 1026 166 79 0.9 90 20 Pressure Bag 36 36 9 Sodium Chloride 0.45% 1, 900 130 50 000 ml @ 10 mls/hr IV . Q24H [facility] Rx#:[id number] Intake, IV Titration 2.34 34.232 Amount Norepinephrine 8 mg In 2.34 34.232 Sodium Chloride 0.9% 250 ml @ 0.03 MCG/KG/MIN 5. 266 mls/hr IV .Q24H [facility] Rx#:[id number] Oral 1080 75 Output: Urine 395 405 210 Other: Voiding Method Indwelling Catheter Indwelling Catheter Indwelling Catheter ABP, PAP, CO, CI - Last Documented Arterial Blood Pressure 119/46 - Labs CBC & Chem 7: 12/20/23 05:33 12/20/23 05:33 Labs: Abnormal Lab Results - Last 24 Hours (Table) 12/19/23 12/20/2312/19/24 Range/Units 13:10 05:33 05:33 RBC 2.68 L 2.62 L (4.30-5.90) m/uL Hgb 8.1 L 7.8 L (13.0-17.5) gm/dL Hct 26.9 L 26.2 L (39.0-53.0) % MCV 100.4 H (80.0-100.0) fL MCHC 29.9 L 30.0 L (31.0-37.0) g/dL Lymphocytes # 0.7 L (1.0-4.8) k/uL Carbon Dioxide 31 H (22-30) mmol/L Glucose 101 H (74-99) mg/dL Calcium 8.3 L (8.4-10.2) mg/dL Microbiology - Last 24 Hours (Table) 12/16/23 09:18 Gram Stain - Final Sputum Sputum Culture - Final
--- NOTE | 2023-12-20 10:55 | P.PN ---
Subjective Progress Note Date: 12/20/23 Chevy French, is a 77-year-old male who presented to [facility] emergency room due to abdominal pain and generalized weakness and hypotension. Patient was recently admitted to [facility] after sustaining a fall and having femur fracture he underwent surgery and was transferred to assisted for rehab. He was evaluated in the emergency room vital examination on presentation revealed a temperature of 98.7 pulse 80 respiration 30 blood pressure 80/53 pulse ox 97% on 5 L nasal cannula Laboratory data revealed a white blood count of 14.5 hemoglobin 10.1 platelet count 511 sodium 122 potassium 6.0 chloride 79 BUN 83 creatinine 4.23 Testing in the emergency room revealed chest x-ray revealed low lung volumes with generalized hazy appearance which could represent atelectasis versus pulmonary edema, CT scan of the abdomen revealed dilated small bowel loops and stomach without clear focal transition point, and significantly distended urinary bladder with bilateral hydronephrosis. Patient was admitted to medical floor for further evaluation and treatment On 12/16/2023 patient was seen and examined in the ICU, he is alert and oriented in no distress, he is maintained on blood pressure support, triple lumen and arterial line inserted, patient is followed by critical care, he denies any chest pain, or shortness of breath, munoz catheter inserted yesterday, kidney function improving. On 12/17/2023 patient is alert and oriented. Patient remains in the ICU pressure supporting medication. Creatinine improving to 1.28 bun 38 potassium 4.8 sodium 135.current vital signs temp 98.1, heart rate 60, respiratory rate 20, blood pressure 1 today knee 6/41 with pulse ox of96% on 4 L. Patient remains with NG tube nothing by mouth. On 12/18/2023 patient was seen and examined in the ICU he is alert and oriented x 3 in no apparent distress, there is no fever or chills no headache or dizziness no chest pain no shortness of breath no cough no nausea or vomiting no abdominal pain no diarrhea no blood in the stools, patient is passing gas and having bowel movements, no burning with urination no frequency or urgency and no hematuria. Yesterday patient developed atrial fibrillation with rapid ventricular response, he was seen by cardiology and was started on IV heparin. On 12/19/2023 patient was seen and examined in the ICU, he is alert and oriented x 3 in no distress, there is no fever or chills no headache or dizziness no chest pain no shortness of breath no cough no nausea or vomiting no abdominal pain no diarrhea and no urinary symptoms. Patient still has Munoz catheter in. CT scan of the chest done yesterday revealed bilateral consolidative opacities and pleural effusion left greater than right. Patient is maintained on IV Zosyn, he is also maintained on IV heparin for new onset atrial fibrillation, pulmonary and cardiology are following. On 12/20/2023 patient was seen and examined in the ICU he is alert and oriented x 3 in no apparent distress there is no fever or chills no headache or dizziness no chest pain, he is still complaining of cough and shortness of breath with any activity there is no nausea or vomiting no abdominal pain no diarrhea no blood in the stools, Munoz catheter is still in. Vital exam reveals a temperature of 97.7 pulse 57 respiration 13 blood pressure 117/59 pulse ox 98% on 3 L nasal cannula. White blood count 4.9 hemoglobin 7.8 platelet count 328 BUN 14 creatinine 0.74 Objective - Vital Signs Vital signs: Vital Signs Temp 97.7 F 12/20/23 08:00 Pulse 70 12/20/23 09:00 Resp 26 H 12/20/23 09:00 BP 135/45 12/20/23 09:00 Pulse Ox 96 12/20/23 09:00 FiO2 Intake & Output 12/19/23 12/20/23 12/20/23 18:59 06:59 18:59 Intake Total 2106 243.34 113.232 Output Total 395 405 210 Balance 1711 -161.66 -96.768 Weight 102.7 kg Intake: IV 1026 166 79 0.9 90 20 Pressure Bag 36 36 9 Sodium Chloride 0.45% 1, 900 130 50 000 ml @ 10 mls/hr IV . Q24H [facility] Rx#:[id number] Intake, IV Titration 2.34 34.232 Amount Norepinephrine 8 mg In 2.34 34.232 Sodium Chloride 0.9% 250 ml @ 0.03 MCG/KG/MIN 5. 266 mls/hr IV .Q24H [facility] Rx#:[id number] Oral 1080 75 Output: Urine 395 405 210 Other: Voiding Method Indwelling Catheter Indwelling Catheter ABP, PAP, CO, CI - Last Documented Arterial Blood Pressure 119/46 - Exam In general patient is alert and oriented x 3 in no distress HEENT head normocephalic and atraumatic Neck is supple no JVD no goiter no lymphadenopathy no carotid bruit Chest examination is clear to auscultation no crackles no wheezing Cardiac exam reveals regular heart sounds S1 and S2 no gallops no murmurs Abdomen is soft with mild diffuse tenderness no organomegaly no palpable masses with sluggish bowel sounds Extremity exam reveals no edema no cyanosis or clubbing Neurological examination reveals no gross focal deficits - Labs CBC & Chem 7: 12/20/23 05:33 12/20/23 05:33 Labs: Abnormal Lab Results - Last 24 Hours (Table) 12/19/23 12/20/23 12/20/23 Range/Units 13:10 05:33 05:33 RBC 2.68 L 2.62 L (4.30-5.90) m/uL Hgb 8.1 L 7.8 L (13.0-17.5) gm/dL Hct 26.9 L 26.2 L (39.0-53.0) % MCV 100.4 H (80.0-100.0) fL MCHC 29.9 L 30.0 L (31.0-37.0) g/dL Lymphocytes # 0.7 L (1.0-4.8) k/uL Carbon Dioxide 31 H (22-30) mmol/L Glucose 101 H (74-99) mg/dL Calcium 8.3 L (8.4-10.2) mg/dL Microbiology - Last 24 Hours (Table) 12/16/23 09:18 Gram Stain - Final Sputum Sputum Culture - Final Assessment and Plan Plan: Abdominal pain Dilated small bowels with possible ileus versus partial small bowel obstruction Urinary retention Hypotension Severe hyponatremia Acute kidney injury Electrolyte imbalance with severe hyperkalemia Leukocytosis Recent fall with right femur fracture with surgical repair New onset atrial fibrillation with rapid ventricular response during this admission At this time patient is admitted to medical floor Munoz catheter was inserted in the emergency room He was started on IV fluid Nephrology and urology consultation were requested For DVT prophylaxis subcu Lovenox Will follow closely
[2023-12-20] MEDS: IPRATROPIUM-ALBUTEROL 3 ML NEB INHALATION SCH (11:32)
--- NOTE | 2023-12-20 12:17 | P.PN ---
Subjective Progress Note Date: 12/20/23 Principal diagnosis: Acute small bowel obstruction 77-year-old male patient, presented to the hospital because of abdominal pain, nausea, emesis, abdominal distention along with weakness, and hypotension. He also noted diminished urine output. His last bowel movement was more than 2 days ago. He is not passing any flatus. He was not treated secondary for rehabilitation following a fall with a fracture requiring surgery. In the emergency, the patient was found to have an acute on top of chronic kidney injury. Rich catheter was inserted and the patient immediately produced around 1 L of urine output. Patient was also given an NG tube and a total of 2.5 L of gastric material was aspirated immediately. CAT scan of the abdomen and pelvis was done in the emergency and the patient was found to have fluid-filled esophagus with dilated gas and fluid-filled stomach. Patient also had dilated small bowel with air fluid levels. The distal small bowel appeared collapsed and there was no clear focal transition identified. No focal bowel wall thickening or inflammatory changes. The small bowel measures up to 4.3 cm in size. Gas and stool was present in the large bowel. Appendix was normal. No evidence of interval pneumoperitoneum. Small bilateral pleural effusions along with compressive atelectasis in the lung bases were noted. Blood work showed an acute on top of chronic kidney injury. The patient's creatinine was up to 4.23 with a BUN of 83 and his sodium was 122 with a potassium level of 6 and a chloride was 79 with a bicarb level of 32. Normal LFTs. proBNP level is 468. Amylase and lipase are within normal limits. The white cell count of 14.5 with a hemoglobin 10.1 and a platelet of 511. Coagulation profile is within normal limits. Chest x-ray showed cardiomegaly with mild pulm vascular congestion. For now, the patient is being resuscitated with IV fluids. He is on normal saline at rate of 100 cc an hour. He is also on norepinephrine which is running at 0.15 mcg/kg/min. He is on oxygen at 3 L/min nasal cannula. Triple-lumen catheter was established and the intensive care unit along with an arterial line. General surgery is on the case. Nephrology is also on the case. 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 He is an ex-smoker. 12/16/2023, the patient is being seen for a follow-up. The patient is much more awake compared to yesterday. Noted the patient was aggressive resuscitative IV fluids and over the past 24 hours, the patient received a total of 6 L of IV flu ids. Currently on normal saline at rate of 100 cc an hour. The patient required high doses of pressors overnight and norepinephrine was as high as 0.5 mcg/kg/min. Vasopressin was added and currently norepinephrine is down to 0.32 mcg/kg/min. He is much more awake and alert and is communicating. He is on 3 L of O2 nasal cannula. NG tube is still in place and the total amount of output is given in the order of 3.6 L since the tube was placed. Urine output is improving and the patient is producing around 100 cc an hour. No fever. No chills. White cell count 11.7 with hemoglobin 8.8 and a platelet count of 578. Sodium is at 130, BUN 63 with a creatinine of 2.7. The potassium levels of 5.4 and a serum bicarb is at 20. CPK is 1024. Axes are normal. Serum cortisol was 16.9. proBNP level was 1360. Lactic acid level was ordered and results are still pending for now. Troponins at 0.034. His previous echocardiogram showed moderate aortic stenosis and preserved LV function. He is currently on O2 at 3 L. Chest x-ray shows a triple-lumen catheter in the left subclavian. At the same time, the patient has increased pulm vascular markings and some early infiltration of the left perihilar area. On 12/17/2023, the patient is being seen for a follow-up. The patient is, comfortable on 5 L of oxygen by nasal cannula. Continues to have a congested cough. NG tube is in place and output is minimal. Hemodynamically, is improved and the patient is still on norepinephrine running at 0.16 mcg/kg/min and the patient is also physiologic dose of vasopressin. The patient is on half-normal saline at rate of 130 cc an hour. Overall fluid balance is +1.9 L over the past 24 hours. Blood pressures improved and the patient's urine output is excellent for now. Meanwhile, he is afebrile. Hemodynamically he is improving and the blood pressure has essentially improved. We should be able to wean down the pressors. Meanwhile, the patient chest x-ray showing cardiomegaly and the patient has worsening left lower lobe pulmonary filtrate. This could be atelectasis versus pneumonia. NG tube is in a good location. There is background cardiomegaly. The patient remains on IV Zosyn as a broad-spectrum antibiotic coverage for now. The patient is also on Lovenox 40 mg subcu for DVT prophylaxis. The white cell count is 7.6 with a hemoglobin of 7.6 and a platelet count of 398. BUN 38 with a creatinine of 1.2 and a sodium levels at 135 and potassium levels of 4.5. LFTs are essentially within normal limits. Bowel sounds are more active on today's evaluation. The patient remains n.p.o. for now. No other significant events overnight. 12/18/2023, I am seeing the patient for a follow-up. The patient is doing well. He is passing flatus. Had a bowel movement yesterday. Output from the G-tube is minimal. Based on that, I ended up removing the NG tube today. I noted some progressive worsening his oxygenation. Earlier this morning, the patient was placed on O2 at 15 L. The chest x-ray shows worsening in bilateral pulmonary filtrates. Based on that, I ordered a CAT scan of the chest to evaluate the patient's pulmonary findings and the CAT scan was completed this morning and it shows evidence of bilateral consolidation and opacities noted bilateral pleural effusion left more than right. Underlying pneumonia cannot be completely excluded. The patient's renal function has essentially normalized. The white cell count of 6.3 with a hemoglobin 7.6 and a platelet count of 366. The sodium is at 141, bicarb is at 27, BUN 22 with a creatinine of 0.9. LFTs are normal. The patient is awake and alert. He remains in atrial fibrillation. He was found to be slightly more tachycardic on today's evaluation. He remains on IV heparin for now. Antibiotic coverage is with IV Zosyn. On today's evaluation of 12/19/2023, the patient is being seen for a follow-up. Patient is currently on 3 days of oxygen by nasal cannula. Taking clear liquid diet. He is on half-normal saline which is running at 75 cc an hour. No nausea. No vomiting. Abdominal pain. No chest pain. He has been started on IV heparin regarding episode of atrial fibrillation. He is also on metoprolol 25 mg twice a day. His blood work shows a WBC count of 5.2 with a hemoglobin 7.8 and platelet count of 348. Sodium is at 138 with a potassium level of 4.3, bicarb is at 31, BUN is 18 with a creatinine of 0.7. LFTs are within normal limits. Awake and alert and communicating. No other significant events overnight. Patient evaluated today on 12/20/23, remains in the ICU, his nasogastric tube was discontinued by surgery, patient seems to be comfortable, not in distress, intermittently noted to have bradycardia and drop in his blood pressure, being addressed by cardiology. Patient denies being short of breath denies abdominal pain although his abdomen seems to be distended and no bowel sounds noted. Patient remains on Zosyn, his last bowel movement was 12/16. WBC count is 4.9 hemoglobin 7.8 electrolytes are normal renal profile is normal, his metoprolol was decreased by cardiology, because of his intermittent episodes of bradycardia and hypotension Objective - Vital Signs Vital signs: Vital Signs Temp 97.7 F 12/20/23 08:00 Pulse 80 12/20/23 11:43 Resp 16 12/20/23 11:43 BP 124/72 12/20/23 11:00 Pulse Ox 99 12/20/23 11:33 FiO2 Intake & Output 12/19/23 12/20/23 12/20/23 18:59 06:59 18:59 Intake Total 2106 243.34 279.232 Output Total 395 405 330 Balance 1711 -161.66 -50.768 Weight 102.7 kg Intake: IV 1026 166 245 0.9 90 40 Piperacillin-Tazobactam 3 100 .375 gm In Sodium Chloride 0.9% 100 ml @ 25 mls/hr IVPB Q8H [facility] Rx#: [id number] Pressure Bag 36 36 15 Sodium Chloride 0.45% 1, 900 130 90 000 ml @ 10 mls/hr IV . Q24H [facility] Rx#:[id number] Intake, IV Titration 2.34 34.232 Amount Norepinephrine 8 mg In 2.34 34.232 Sodium Chloride 0.9% 250 ml @ 0.03 MCG/KG/MIN 5. 266 mls/hr IV .Q24H [facility] Rx#:[id number] Oral 1080 75 Output: Urine 395 405 330 Other: Voiding Method Indwelling Catheter Indwelling Catheter Indwelling Catheter ABP, PAP, CO, CI - Last Documented Arterial Blood Pressure 111/35 - Exam General: Revealed 77-year-old white male in no distress.On 2 L nasal cannula O2 saturation 99% HEENT head normocephalic and atraumatic Neck is supple no JVD no goiter no lymphadenopathy no carotid bruit Chest examination: Diminished breath sound bilaterally no crackles rhonchi or wheezes Cardiac exam reveals regular heart sounds S1 and S2 no gallops 2/6 systolic murmur throughout the precordium Abdomen distended but nontender, no rebound no guarding, no bowel sounds. Extremity exam reveals no edema no cyanosis or clubbing Neurological examination reveals no gross focal deficits Psychiatric: Normal mood affect and normal mental status examination. Skin: No rashes. - Labs CBC & Chem 7: 12/20/23 05:33 12/20/23 05:33 Labs: Abnormal Lab Results - Last 24 Hours (Table) 12/19/23 12/20/23 12/20/23 Range/Units 13:10 05:33 05:33 RBC 2.68 L 2.62 L (4.30-5.90) m/uL Hgb 8.1 L 7.8 L (13.0-17.5) gm/dL Hct 26.9 L 26.2 L (39.0-53.0) % MCV 100.4 H (80.0-100.0) fL MCHC 29.9 L 30.0 L (31.0-37.0) g/dL Lymphocytes # 0.7 L (1.0-4.8) k/uL Carbon Dioxide 31 H (22-30) mmol/L Glucose 101 H (74-99) mg/dL Calcium 8.3 L (8.4-10.2) mg/dL Microbiology - Last 24 Hours (Table) 12/16/23 09:18 Gram Stain - Final Sputum Sputum Culture - Final Assessment and Plan Assessment: Impression: Small bowel obstruction with secondary abdominal pain and distention, and clinically improved and NG tube was removed on 12/18/2023 General Surgery is on the case Acute kidney injury, recovered Acute hyperkalemia secondary to above, improving Moderately severe aortic stenosis Acute hypoxic respiratory failure, currently on 2 L of oxygen by nasal cannula. The patient has consolidation in the lung bases and bilateral pleural effusion left more than right. Hypotension, likely hypovolemic in nature in addition to presence of a moderately severe aortic stenosis which probably contributed to his significant drop in the blood pressure, recovered Recent hip fracture status post ORIF History of CVA maintained on Plavix with some residual left-sided weakness Hyperlipidemia Anemia of chronic disease Acute hyponatremia in the setting of obstructive uropathy and renal failure, improving Recommendation: Continue to monitor in the ICU Advance diet as tolerated or as recommended by surgery on the pillowcase sewer urine output and electrolytes on a daily basis Continue Zosyn empirically Cardiology is addressing his cardiac status and his moderate to severe aortic stenosis as well as his arrhythmia. IV fluid at KVO Will continue to follow Time with Patient: Less than 30
--- NOTE | 2023-12-20 15:28 | P.PN ---
Subjective Progress Note Date: 12/20/23 CHIEF COMPLAINT: Abdominal pain HISTORY OF PRESENT ILLNESS: Patient remains in the ICU. Patient's NG tube discontinued over the weekend. He did have 1 episode of vomiting yesterday. Denies any nausea or vomiting currently. Appetite has been decreased. He denies any abdominal pain. Last bowel movement 12/16. He did require a Bert lift to sit at the bedside chair. Afebrile. WBC 4.9 Hgb 7.8 creatinine 0.74 PHYSICAL EXAM: VITAL SIGNS: Reviewed GENERAL: no acute distress. Patient is lethargic HEENT: No sclera icterus. Extraocular movements grossly intact. Moist buccal mucosa. Head is atraumatic, normocephalic. Hears conversational speech. No nasal drainage. NECK: Supple without lymphadenopathy. CHEST: Non-labored respirations and equal bilateral excursions. CARDIOVASCULAR: Palpable 2+ radial pulses. ABDOMEN: Soft. Mildly distended. Nontender. MUSCULOSKELETAL: No clubbing or cyanosis. NEUROLOGIC: No focal or lateralizing signs. Cranial nerves II through XII grossly intact. SKIN: Well perfused. Good skin turgor. ASSESSMENT: 1. Ileus versus partial small bowel obstruction with abdominal pain and abdominal distention 2. Urinary retention and bilateral hydronephrosis status post Rich catheter placement 3. Acute kidney injury 4. Hyponatremia 5. Hyperkalemia 6. 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 Recent hip fracture status postsurgical repair 8. Moderate to severe aortic stenosis PLAN: -Advance diet to full liquids -Ensure added for protein supplement -Increase patient's activity level -Continue supportive care Physician Assistant Guest Services Manager note has been reviewed by physician. Signing provider agrees with the documented findings, assessment, and plan of care. Objective - Vital Signs Vital signs: Vital Signs Temp 97.7 F 12/20/23 08:00 Pulse 80 12/20/23 11:43 Resp 16 12/20/23 11:43 BP 124/72 12/20/23 11:00 Pulse Ox 99 12/20/23 11:33 FiO2 Intake & Output 12/19/23 12/20/23 12/20/23 18:59 06:59 18:59 Intake Total 2106 243.34 279.232 Output Total 395 405 330 Balance 1711 -161.66 -50.768 Weight 102.7 kg Intake: IV 1026 166 245 0.9 90 40 Piperacillin-Tazobactam 3 100 .375 gm In Sodium Chloride 0.9% 100 ml @ 25 mls/hr IVPB Q8H [facility] Rx#: [id number] Pressure Bag 36 36 15 Sodium Chloride 0.45% 1, 900 130 90 000 ml @ 10 mls/hr IV . Q24H [facility] Rx#:[id number] Intake, IV Titration 2.34 34.232 Amount Norepinephrine 8 mg In 2.34 34.232 Sodium Chloride 0.9% 250 ml @ 0.03 MCG/KG/MIN 5. 266 mls/hr IV .Q24H [facility] Rx#:[id number] Oral 1080 75 Output: Urine 395 405 330 Other: Voiding Method Indwelling Catheter Indwelling Catheter Indwelling Catheter ABP, PAP, CO, CI - Last Documented Arterial Blood Pressure 111/35 - Labs CBC & Chem 7: 12/20/23 05:33 12/20/23 05:33 Labs: Abnormal Lab Results - Last 24 Hours (Table) 12/19/23 12/20/23 12/20/23 Range/Units 13:10 05:33 05:33 RBC 2.68 L 2.62 L (4.30-5.90) m/uL Hgb 8.1 L 7.8 L (13.0-17.5) gm/dL Hct 26.9 L 26.2 L (39.0-53.0) % MCV 100.4 H (80.0-100.0) fL MCHC 29.9 L 30.0 L (31.0-37.0) g/dL Lymphocytes # 0.7 L (1.0-4.8) k/uL Carbon Dioxide 31 H (22-30) mmol/L Glucose 101 H (74-99) mg/dL Calcium 8.3 L (8.4-10.2) mg/dL Microbiology - Last 24 Hours (Table) 12/16/23 09:18 Gram Stain - Final Sputum Sputum Culture - Final
[2023-12-21 06:21] LABS: Basophils % (A) 0 %; Eosinophils # (A) 0.2 k/uL (0-0.7); Eosinophils % (A) 3 %; HCT 24.5 % (39.0-53.0); HGB 7.5 gm/dL (13.0-17.5); Hypochromasia Marked; Lymphocytes # (A) 0.6 k/uL (1.0-4.8); Lymphocytes % (A) 14 %; MCH 30.7 pg (25.0-35.0); MCHC 30.8 g/dL (31.0-37.0); MCV 99.5 fL (80.0-100.0); Mean Platelet Volume 6.6; Monocytes # (A) 0.3 k/uL (0-1.0); Monocytes % (A) 6 %; Neutrophils # (A) 3.4 k/uL (1.3-7.7); Neutrophils % (A) 75 %; Platelet Count 352 k/uL (150-450); RBC 2.46 m/uL (4.30-5.90); WBC 4.5 k/uL (3.8-10.6)
[2023-12-21 06:27] LABS: African American GFR (CKD) >90 (>60 ml/min/1.73 sqM); Anion Gap -1 mmol/L; Blood Urea Nitrogen 12 mg/dL (9-20); Calcium 8.2 mg/dL (8.4-10.2); Carbon Dioxide 33 mmol/L (22-30); Chloride 105 mmol/L (98-107); Glucose 97 mg/dL (74-99); Non-African American GFR(CKD) >90 (>60 ml/min/1.73 sqM); Potassium 4.2 mmol/L (3.5-5.1); Sodium 137 mmol/L (137-145)
--- NOTE | 2023-12-21 08:00 | XR ---
EXAMINATION TYPE: XR chest 1V portable DATE OF EXAM: 12/21/2023 HISTORY: Shortness of breath. COMPARISON: 12/19/2023 TECHNIQUE: Single view of the chest is submitted. FINDINGS: Demonstrated are scattered senescent parenchymal change. Scattered airspace infiltrates seen involving both lung condon without significant interval change. S mall effusions noted. The heart is stable. Hilar and mediastinal structures are within normal limits. Degenerative changes are seen of the dorsal spine. IMPRESSION: 1. Scattered airspace infiltrates seen involving both lung condon without significant interval payne e. Small effusions noted. [facility], , 12/21/2023 7:58 AM
--- NOTE | 2023-12-21 09:06 | P.PN ---
Subjective Progress Note Date: 12/21/23 Chevy French, is a 77-year-old male who presented to [facility] emergency room due to abdominal pain and generalized weakness and hypotension. Patient was recently admitted to [facility] after sustaining a fall and having femur fracture he underwent surgery and was transferred to halfway for rehab. He was evaluated in the emergency room vital examination on presentation revealed a temperature of 98.7 pulse 80 respiration 30 blood pressure 80/53 pulse ox 97% on 5 L nasal cannula Laboratory data revealed a white blood count of 14.5 hemoglobin 10.1 platelet count 511 sodium 122 potassium 6.0 chloride 79 BUN 83 creatinine 4.23 Testing in the emergency room revealed chest x-ray revealed low lung volumes with generalized hazy appearance which could represent atelectasis versus pulmonary edema, CT scan of the abdomen revealed dilated small bowel loops and stomach without clear focal transition point, and significantly distended urinary bladder with bilateral hydronephrosis. Patient was admitted to medical floor for further evaluation and treatment On 12/16/2023 patient was seen and examined in the ICU, he is alert and oriented in no distress, he is maintained on blood pressure support, triple lumen and arterial line inserted, patient is followed by critical care, he denies any chest pain, or shortness of breath, munoz catheter inserted yesterday, kidney function improving. On 12/17/2023 patient is alert and oriented. Patient remains in the ICU pr essure supporting medication. Creatinine improving to 1.28 bun 38 potassium 4.8 sodium 135.current vital signs temp 98.1, heart rate 60, respiratory rate 20, blood pressure 1 today knee 6/41 with pulse ox of96% on 4 L. Patient remains with NG tube nothing by mouth. On 12/18/2023 patient was seen and examined in the ICU he is alert and oriented x 3 in no apparent distress, there is no fever or chills no headache or dizziness no chest pain no shortness of breath no cough no nausea or vomiting no abdominal pain no diarrhea no blood in the stools, patient is passing gas and having bowel movements, no burning with urination no frequency or urgency and no hematuria. Yesterday patient developed atrial fibrillation with rapid ventricular response, he was seen by cardiology and was started on IV heparin. On 12/19/2023 patient was seen and examined in the ICU, he is alert and oriented x 3 in no distress, there is no fever or chills no headache or dizziness no chest pain no shortness of breath no cough no nausea or vomiting no abdominal pain no diarrhea and no urinary symptoms. Patient still has Munoz catheter in. CT scan of the chest done yesterday revealed bilateral consolidative opacities and pleural effusion left greater than right. Patient is maintained on IV Zosyn, he is also maintained on IV heparin for new onset atrial fibrillation, pulmonary and cardiology are following. On 12/20/2023 patient was seen and examined in the ICU he is alert and oriented x 3 in no apparent distress there is no fever or chills no headache or dizziness no chest pain, he is still complaining of cough and shortness of breath with any activity there is no nausea or vomiting no abdominal pain no diarrhea no blood in the stools, Munoz catheter is still in. Vital exam reveals a temperature of 97.7 pulse 57 respiration 13 blood pressure 117/59 pulse ox 98% on 3 L nasal cannula. White blood count 4.9 hemoglobin 7.8 platelet count 328 BUN 14 creatinine 0.74 On 12/21/2023 patient remains in the intensive care unit patient is alert and oriented x 3. Current vital signs temp 97.5, heart 75, respiratory rate 18, blood pressure 133/68 with a pulse ox of 99% on 2 L. White blood cell 4.5, hemoglobin 7.5, creatinine 0.64 and bun 12. Patient remains short of breath with cough. Patient denies any nausea vomiting or diarrhea. Patient denies any urinary burning or frequency Objective - Vital Signs Vital signs: Vital Signs Temp 97.5 F L 12/21/23 08:00 Pulse 75 12/21/23 08:14 Resp 18 12/21/23 08:00 BP 133/68 12/21/23 08:00 Pulse Ox 99 12/21/23 08:05 FiO2 Intake & Output 12/20/23 12/21/23 12/21/23 18:59 06:59 18:59 Intake Total 478.232 220 40 Output Total 795 425 160 Balance -316.768 -205 -120 Weight 102 kg Intake: IV 444 220 40 0.9 70 Piperacillin-Tazobactam 3 100 .375 gm In Sodium Chloride 0.9% 100 ml @ 25 mls/hr IVPB Q8H [facility] Rx#: [id number] Pressure Bag 24 Sodium Chloride 0.45% 1, 250 220 40 000 ml @ 10 mls/hr IV . Q24H [facility] Rx#:[id number] Intake, IV Titration 34.232 Amount Norepinephrine 8 mg In 34.232 Sodium Chloride 0.9% 250 ml @ 0.03 MCG/KG/MIN 5. 266 mls/hr IV .Q24H [facility] Rx#:[id number] Output: Urine 795 425 160 Other: Voiding Method Indwelling Catheter Indwelling Catheter ABP, PAP, CO, CI - Last Documented Arterial Blood Pressure 104/33 - Exam In general patient is alert and oriented x 3 in no distress HEENT head normocephalic and atraumatic Neck is supple no JVD no goiter no lymphadenopathy no carotid bruit Chest examination is clear to auscultation no crackles no wheezing Cardiac exam reveals regular heart sounds S1 and S2 no gallops no murmurs Abdomen is soft with mild diffuse tenderness no organomegaly no palpable masses with sluggish bowel sounds Extremity exam reveals no edema no cyanosis or clubbing Neurological examination reveals no gross focal deficits - Labs CBC & Chem 7: 12/21/23 05:38 12/21/23 05:38 Labs: Abnormal Lab Results - Last 24 Hours (Table) 12/21/23 12/21/23 Range/Units 05:38 05:38 RBC 2.46 L (4.30-5.90) m/uL Hgb 7.5 L (13.0-17.5) gm/dL Hct 24.5 L (39.0-53.0) % MCHC 30.8 L (31.0-37.0) g/dL Lymphocytes # 0.6 L (1.0-4.8) k/uL Carbon Dioxide 33 H (22-30) mmol/L Creatinine 0.64 L (0.66-1.25) mg/dL Calcium 8.2 L (8.4-10.2) mg/dL Assessment and Plan Assessment: Abdominal pain Dilated small bowels with possible ileus versus partial small bowel obstruction Urinary retention Hypotension Severe hyponatremia Acute kidney injury Electrolyte imbalance with severe hyperkalemia Leukocytosis Recent fall with right femur fracture with surgical repair New onset atrial fibrillation with rapid ventricular response during this admission At this time patient is admitted to medical floor Munoz catheter was inserted in the emergency room He was started on IV fluid Nephrology, surgical, cardiology and urology services following For DVT prophylaxis subcu Lovenox Will follow closely
[2023-12-21] MEDS: FUROSEMIDE 10 MG/ML 4 ML VIAL IV SCH (11:36)
--- NOTE | 2023-12-21 12:37 | P.PN ---
Subjective Progress Note Date: 12/21/23 CHIEF COMPLAINT: Abdominal pain HISTORY OF PRESENT ILLNESS: Patient remains in the ICU. Surgical service following regards to abdominal ileus. Patient denies any abdominal pain. He is having flatus. He did tolerate the full liquids. No bowel movement. Afebrile. WBC 4.5 Hgb 7.5 sodium 137 potassium 4.2 creatinine 0.64 PHYSICAL EXAM: VITAL SIGNS: Reviewed GENERAL: no acute distress. Patient is lethargic HEENT: No sclera icterus. Extraocular movements grossly intact. Moist buccal mucosa. Head is atraumatic, normocephalic. Hears conversational speech. No nasal drainage. NECK: Supple without lymphadenopathy. CHEST: Non-labored respirations and equal bilateral excursions. CARDIOVASCULAR: Palpable 2+ radial pulses. ABDOMEN: Soft. distended. Nontender. Tympanic MUSCULOSKELETAL: No clubbing or cyanosis. NEUROLOGIC: No focal or lateralizing signs. Cranial nerves II through XII grossly intact. SKIN: Well perfused. Good skin turgor. ASSESSMENT: 1. Ileus 2. Urinary retention and bilateral hydronephrosis status post Rich catheter placement 3. Acute kidney injury improved 4. Hyponatremia improved 5. Hyperkalemia improved 6. 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 Recent hip fracture status postsurgical repair 8. Moderate to severe aortic stenosis PLAN: -Add colace -Continue full liquid diet -Continue Ensure protein supplement -Increase patient's activity level -Continue supportive care Physician Silk Brusher note has been reviewed by physician. Signing provider agrees with the documented findings, assessment, and plan of care. Objective - Vital Signs Vital signs: Vital Signs Temp 97.5 F L 12/21/23 08:00 Pulse 68 12/21/23 12:07 Resp 24 12/21/23 11:00 BP 134/55 12/21/23 11:00 Pulse Ox 95 12/21/23 11:00 FiO2 28 12/21/23 11:08 Intake & Output 12/20/23 12/21/23 12/21/23 18:59 06:59 18:59 Intake Total 478.232 220 210 Output Total 795 425 480 Balance -316.768 -205 -270 Weight 102 kg Intake: IV 444 220 210 0.9 70 10 Piperacillin-Tazobactam 3 100 100 .375 gm In Sodium Chloride 0.9% 100 ml @ 25 mls/hr IVPB Q8H [facility] Rx#: [id number] Pressure Bag 24 Sodium Chloride 0.45% 1, 250 220 100 000 ml @ 10 mls/hr IV . Q24H [facility] Rx#:[id number] Intake, IV Titration 34.232 Amount Norepinephrine 8 mg In 34.232 Sodium Chloride 0.9% 250 ml @ 0.03 MCG/KG/MIN 5. 266 mls/hr IV .Q24H [facility] Rx#:[id number] Output: Urine 795 425 480 Other: Voiding Method Indwelling Catheter Indwelling Catheter Indwelling Catheter ABP, PAP, CO, CI - Last Documented Arterial Blood Pressure 104/33 - Labs CBC & Chem 7: 12/21/23 05:38 12/21/23 05:38 Labs: Abnormal Lab Results - Last 24 Hours (Table) 12/21/23 12/21/23 Range/Units 05:38 05:38 RBC 2.46 L (4.30-5.90) m/uL Hgb 7.5 L (13.0-17.5) gm/dL Hct 24.5 L (39.0-53.0) % MCHC 30.8 L (31.0-37.0) g/dL Lymphocytes # 0.6 L (1.0-4.8) k/uL Carbon Dioxide 33 H (22-30) mmol/L Creatinine 0.64 L (0.66-1.25) mg/dL Calcium 8.2 L (8.4-10.2) mg/dL
[2023-12-21] MEDS: DOCUSATE 100 MG CAP PO SCH (13:56)
--- NOTE | 2023-12-21 15:07 | P.PN ---
Subjective Progress Note Date: 12/21/23 Principal diagnosis: Acute small bowel obstruction 77-year-old male patient, presented to the hospital because of abdominal pain, nausea, emesis, abdominal distention along with weakness, and hypotension. He also noted diminished urine output. His last bowel movement was more than 2 days ago. He is not passing any flatus. He was not treated secondary for rehabilitation following a fall with a fracture requiring surgery. In the emergency, the patient was found to have an acute on top of chronic kidney injury. Rich catheter was inserted and the patient immediately produced around 1 L of urine output. Patient was also given an NG tube and a total of 2.5 L of gastric material was aspirated immediately. CAT scan of the abdomen and pelvis was done in the emergency and the patient was found to have fluid-filled esophagus with dilated gas and fluid-filled stomach. Patient also had dilated small bowel with air fluid levels. The distal small bowel appeared collapsed and there was no clear focal transition identified. No focal bowel wall thickening or inflammatory changes. The small bowel measures up to 4.3 cm in size. Gas and stool was present in the large bowel. Appendix was normal. No evidence of interval pneumoperitoneum. Small bilateral pleural effusions along with compressive atelectasis in the lung bases were noted. Blood work showed an acute on top of chronic kidney injury. The patient's creatinine was up to 4.23 with a BUN of 83 and his sodium was 122 with a potassium level of 6 and a chloride was 79 with a bicarb level of 32. Normal LFTs. proBNP level is 468. Amylase and lipase are within normal limits. The white cell count of 14.5 with a hemoglobin 10.1 and a platelet of 511. Coagulation profile is within normal limits. Chest x-ray showed cardiomegaly with mild pulm vascular congestion. For now, the patient is being resuscitated with IV fluids. He is on normal saline at rate of 100 cc an hour. He is also on norepinephrine which is running at 0.15 mcg/kg/min. He is on oxygen at 3 L/min nasal cannula. Triple-lumen catheter was established and the intensive care unit along with an arterial line. General surgery is on the case. Nephrology is also on the case. 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 He is an ex-smoker. 12/16/2023, the patient is being seen for a follow-up. The patient is much more awake compared to yesterday. Noted the patient was aggressive resuscitative IV fluids and over the past 24 hours, the patient received a total of 6 L of IV flu ids. Currently on normal saline at rate of 100 cc an hour. The patient required high doses of pressors overnight and norepinephrine was as high as 0.5 mcg/kg/min. Vasopressin was added and currently norepinephrine is down to 0.32 mcg/kg/min. He is much more awake and alert and is communicating. He is on 3 L of O2 nasal cannula. NG tube is still in place and the total amount of output is given in the order of 3.6 L since the tube was placed. Urine output is improving and the patient is producing around 100 cc an hour. No fever. No chills. White cell count 11.7 with hemoglobin 8.8 and a platelet count of 578. Sodium is at 130, BUN 63 with a creatinine of 2.7. The potassium levels of 5.4 and a serum bicarb is at 20. CPK is 1024. Axes are normal. Serum cortisol was 16.9. proBNP level was 1360. Lactic acid level was ordered and results are still pending for now. Troponins at 0.034. His previous echocardiogram showed moderate aortic stenosis and preserved LV function. He is currently on O2 at 3 L. Chest x-ray shows a triple-lumen catheter in the left subclavian. At the same time, the patient has increased pulm vascular markings and some early infiltration of the left perihilar area. On 12/17/2023, the patient is being seen for a follow-up. The patient is, comfortable on 5 L of oxygen by nasal cannula. Continues to have a congested cough. NG tube is in place and output is minimal. Hemodynamically, is improved and the patient is still on norepinephrine running at 0.16 mcg/kg/min and the patient is also physiologic dose of vasopressin. The patient is on half-normal saline at rate of 130 cc an hour. Overall fluid balance is +1.9 L over the past 24 hours. Blood pressures improved and the patient's urine output is excellent for now. Meanwhile, he is afebrile. Hemodynamically he is improving and the blood pressure has essentially improved. We should be able to wean down the pressors. Meanwhile, the patient chest x-ray showing cardiomegaly and the patient has worsening left lower lobe pulmonary filtrate. This could be atelectasis versus pneumonia. NG tube is in a good location. There is background cardiomegaly. The patient remains on IV Zosyn as a broad-spectrum antibiotic coverage for now. The patient is also on Lovenox 40 mg subcu for DVT prophylaxis. The white cell count is 7.6 with a hemoglobin of 7.6 and a platelet count of 398. BUN 38 with a creatinine of 1.2 and a sodium levels at 135 and potassium levels of 4.5. LFTs are essentially within normal limits. Bowel sounds are more active on today's evaluation. The patient remains n.p.o. for now. No other significant events overnight. 12/18/2023, I am seeing the patient for a follow-up. The patient is doing well. He is passing flatus. Had a bowel movement yesterday. Output from the G-tube is minimal. Based on that, I ended up removing the NG tube today. I noted some progressive worsening his oxygenation. Earlier this morning, the patient was placed on O2 at 15 L. The chest x-ray shows worsening in bilateral pulmonary filtrates. Based on that, I ordered a CAT scan of the chest to evaluate the patient's pulmonary findings and the CAT scan was completed this morning and it shows evidence of bilateral consolidation and opacities noted bilateral pleural effusion left more than right. Underlying pneumonia cannot be completely excluded. The patient's renal function has essentially normalized. The white cell count of 6.3 with a hemoglobin 7.6 and a platelet count of 366. The sodium is at 141, bicarb is at 27, BUN 22 with a creatinine of 0.9. LFTs are normal. The patient is awake and alert. He remains in atrial fibrillation. He was found to be slightly more tachycardic on today's evaluation. He remains on IV heparin for now. Antibiotic coverage is with IV Zosyn. On today's evaluation of 12/19/2023, the patient is being seen for a follow-up. Patient is currently on 3 days of oxygen by nasal cannula. Taking clear liquid diet. He is on half-normal saline which is running at 75 cc an hour. No nausea. No vomiting. Abdominal pain. No chest pain. He has been started on IV heparin regarding episode of atrial fibrillation. He is also on metoprolol 25 mg twice a day. His blood work shows a WBC count of 5.2 with a hemoglobin 7.8 and platelet count of 348. Sodium is at 138 with a potassium level of 4.3, bicarb is at 31, BUN is 18 with a creatinine of 0.7. LFTs are within normal limits. Awake and alert and communicating. No other significant events overnight. Patient evaluated today on 12/20/23, remains in the ICU, his nasogastric tube was discontinued by surgery, patient seems to be comfortable, not in distress, intermittently noted to have bradycardia and drop in his blood pressure, being addressed by cardiology. Patient denies being short of breath denies abdominal pain although his abdomen seems to be distended and no bowel sounds noted. Patient remains on Zosyn, his last bowel movement was 12/16. WBC count is 4.9 hemoglobin 7.8 electrolytes are normal renal profile is normal, his metoprolol was decreased by cardiology, because of his intermittent episodes of bradycardia and hypotension Patient was evaluated today 11/21/2023, remains in the ICU, tolerating liquid diet well, still had no bowel movement since the . Patient had a presentation of the ileus, urinary retention and bilateral hydronephrosis, acute kidney injury, hyponatremia, and history of CVA on Plavix, also had a history of recent hip fracture. And in addition to this he has moderate to severe aortic stenosis. Today the patient seems to be comfortable, not in any distress, on 2 L nasal cannula, hemoglobin is 7.5, otherwise the labs were unremarkable. Patient remains on Zosyn empirically, he does have abnormal chest x-ray showing bilateral airspace disease. Patient had another episode last night of bradycardia and according to the nurse he may have had an episode of obstructive sleep apnea associated with bradycardia. Hence I am recommending BiPAP tonight at 02/25/28%.WBC count is 4.5 hemoglobin 7.5 electrolytes are normal renal profile is normal Objective - Vital Signs Vital signs: Vital Signs Temp 97.5 F L 12/21/23 13:00 Pulse 77 12/21/23 14:00 Resp 20 12/21/23 14:00 BP 126/90 12/21/23 14:00 Pulse Ox 93 L 12/21/23 14:00 FiO2 28 12/21/23 11:08 Intake & Output 12/20/23 12/21/23 12/21/23 18:59 06:59 18:59 Intake Total 478.232 220 810 Output Total 001 517 6966 Balance -316.768 Weight 102 kg 102 kg Intake: IV 444 220 270 0.9 70 10 Piperacillin-Tazobactam 3 100 100 .375 gm In Sodium Chloride 0.9% 100 ml @ 25 mls/hr IVPB Q8H [facility] Rx#: [id number] Pressure Bag 24 Sodium Chloride 0.45% 1, 250 220 160 000 ml @ 10 mls/hr IV . Q24H [facility] Rx#:[id number] Intake, IV Titration 34.232 Amount Norepinephrine 8 mg In 34.232 Sodium Chloride 0.9% 250 ml @ 0.03 MCG/KG/MIN 5. 266 mls/hr IV .Q24H [facility] Rx#:[id number] Oral 540 Output: Urine 735 405 5781 Other: Voiding Method Indwelling Catheter Indwelling Catheter Indwelling Catheter ABP, PAP, CO, CI - Last Documented Arterial Blood Pressure 104/33 - Exam General: Revealed 77-year-old white male in no distress.On 2 L nasal cannula O2 saturation 93% HEENT head normocephalic and atraumatic Neck is supple no JVD no goiter no lymphadenopathy no carotid bruit Chest examination: Diminished breath sound bilaterally no crackles rhonchi or wheezes Cardiac exam reveals regular heart sounds S1 and S2 no gallops 2/6 systolic murmur throughout the precordium Abdomen distended but nontender, no rebound no guarding, no bowel sounds. Extremity exam reveals no edema no cyanosis or clubbing Neurological examination reveals no gross focal deficits Psychiatric: Normal mood affect and normal mental status examination. Skin: No rashes. - Labs CBC & Chem 7: 12/21/23 05:38 12/21/23 05:38 Labs: Abnormal Lab Results - Last 24 Hours (Table) 12/21/23 12/21/23 Range/Units 05:38 05:38 RBC 2.46 L (4.30-5.90) m/uL Hgb 7.5 L (13.0-17.5) gm/dL Hct 24.5 L (39.0-53.0) % MCHC 30.8 L (31.0-37.0) g/dL Lymphocytes # 0.6 L (1.0-4.8) k/uL Carbon Dioxide 33 H (22-30) mmol/L Creatinine 0.64 L (0.66-1.25) mg/dL Calcium 8.2 L (8.4-10.2) mg/dL Assessment and Plan Assessment: Impression: Small bowel obstruction/ileus with secondary abdominal pain and distention, and clinically improved and NG tube was removed on 12/18/2023 General Surgery is on the case Acute kidney injury, recovered Acute hyperkalemia secondary to above, improving Moderately severe aortic stenosis Acute hypoxic respiratory failure, currently on 2 L of oxygen by nasal cannula. The patient has consolidation in the lung bases and bilateral pleural effusion left more than right. On diuretics he is also on antibiotics Hypotension, likely hypovolemic in nature in addition to presence of a moderately severe aortic stenosis which probably contributed to his significant drop in the blood pressure, recovered Recent hip fracture status post ORIF History of CVA maintained on Plavix with some residual left-sided weakness Hyperlipidemia Anemia of chronic disease Acute hyponatremia in the setting of obstructive uropathy and renal failure, improving Recommendation: Continue to monitor in the ICU Advance diet as tolerated or as recommended by surgery on the comp field case manager urine output and electrolytes on a daily basis Continue Zosyn empirically Continue Lasix Cardiology is addressing his cardiac status and his moderate to severe aortic stenosis as well as his arrhythmia. IV fluid at KVO Will continue to follow Time with Patient: Less than 30
--- NOTE | 2023-12-21 15:56 | P.PN ---
Subjective History of Present Illness: The patient is a 77-year-old male who presented with progressive fatigue abdominal pain was found to have ileus, hyponatremia and acute renal injury cardiology consultation was requested because of atrial fibrillation. The patient was in the hospital earlier this month after a fall and a fractured hip, underwent surgery. His echocardiogram preoperatively showed a preserved systolic function with moderate aortic stenosis and a mean gradient of 21 mmHg. He continues to be on vasopressor but at a lower dose. He went in atrial fibrillation earlier this morning with controlled ventricular response, asymptomatic. He has an underlying right bundle branch block and no prior atrial fibrillation during his hospitalization. He has no significant peripheral edema. His urine output has been good. He continues to have an NG tube but he is having flatus and has underwent further evaluation with abdominal x-ray today. Patient has a prior history of stroke and was on Plavix in the past. He had significant hypotension on presentation and received intravenous fluid December 17: The patient is feeling well, he continues to be in atrial fibrillation with controlled ventricle response with episodes with a heart rate up to the 1 teens. He continues to be on IV heparin. He is off norepinephrine and his vasopressin is being weaned. He had a CT scan of the chest that showed consolidation and possible pneumonia. He is passing flatus and tolerating oral intake. His urinary output is good. December 18: The patient is back in sinus mechanism this morning with sinus bradycardia. He is feeling well overall, denies any chest discomfort, dizziness or palpitations. He is off vasopressors. He has no nausea or vomiting. His chest x-ray is suggestive of pneumonia and pleural effusion. Medications: Aspirin 81 mg daily, IV heparin, nicotine patch, metoprolol to tartrate 12.5 mg twice a day, Lipitor 40 mg daily 12/19 patient seen and examined. Patient denies any chest pain or shortness breath. Has not had a bowel movement per nursing. Heart rates in the 50s to 60s in sinus rhythm however drops down into the 40s at time with decrease in blood pressure is well. He is not actually symptomatic during these episodes. His metoprolol however was decreased however still having episodes and temporarily needed to go back on vasopressors. Hemoglobin borderline at 7.8.no hematochezia or melena and tolerating eliquis. 12/20 patient seen and examined. Patient denies any chest pain or pressure. He has been diuresis and states his shortness breath is improving. He is having sinus bradycardic episodes [place] of heart rates in the 30s which are temporary all during the sleeping hours. Per nursing monitoring his sleeping there is high suspicion of sleep apnea. He denies any history of syncope or lightheadedness. He is not on any rate control medications and his TSH was noted to be normal this admission. Physical Examination: Neck: Good carotid upstroke, no bruit, no jugular venous distention. Lungs: Decreased breath sounds at the bases Heart: Irregular rate and rhythm, S1-S2, no S3, no rub. Systolic ejection murmur. Abdomen: Soft nontender, positive bowel sounds no organomegaly. Extremities: +1 edema, more on the right side, intact distal pulses. Labs: Hemoglobin 7.8, BUN 18, creatinine 0.75, potassium 4.3 Impression: 1. Small bowel obstruction, resolved 2. Atrial fibrillation, new onset, paroxysmal, back in sinus mechanism 3. Acute renal injury, resolved 4. Anemia 5. History of stroke 6. Moderate aortic stenosis 7. asymptomatic sinus bradycardia likely exacerbated by suspected sleep apnea and increased vagal tone while sleeping Plan: hold beta pa and any AV martha blocking agents given bradycardia with heart rates are in the 30s while sleeping. Recommended further evaluation for sleep study. Not having any higher risk features such as syncope or lightheadedness and appears is asymptomatic. If he does have significant bradycardia during waking hours and he would likely need permanent pacemaker however at this point no indications. Objective - Vital Signs Vital signs: Vital Signs Temp 97.5 F L 12/21/23 13:00 Pulse 63 12/21/23 15:00 Resp 23 12/21/23 15:00 BP 142/76 12/21/23 15:00 Pulse Ox 94 L 12/21/23 15:00 FiO2 28 12/21/23 11:08 Intake & Output 12/20/23 12/21/23 12/21/23 18:59 06:59 18:59 Intake Total 478.232 220 840 Output Total 416 011 4725 Balance -316.768 - Weight 102 kg 102 kg Intake: IV 444 220 300 0.9 70 20 Piperacillin-Tazobactam 3 100 100 .375 gm In Sodium Chloride 0.9% 100 ml @ 25 mls/hr IVPB Q8H [facility] Rx#: [id number] Pressure Bag 24 Sodium Chloride 0.45% 1, 250 220 180 000 ml @ 10 mls/hr IV . Q24H [facility] Rx#:[id number] Intake, IV Titration 34.232 Amount Norepinephrine 8 mg In 34.232 Sodium Chloride 0.9% 250 ml @ 0.03 MCG/KG/MIN 5. 266 mls/hr IV .Q24H [facility] Rx#:[id number] Oral 540 Output: Urine 120 528 9371 Other: Voiding Method Indwelling Catheter Indwelling Catheter Indwelling Catheter ABP, PAP, CO, CI - Last Documented Arterial Blood Pressure 104/33 - Labs CBC & Chem 7: 12/21/23 05:38 12/21/23 05:38 Labs: Abnormal Lab Results - Last 24 Hours (Table) 12/21/23 12/21/23 Range/Units 05:38 05:38 RBC 2.46 L (4.30-5.90) m/uL Hgb 7.5 L (13.0-17.5) gm/dL Hct 24.5 L (39.0-53.0) % MCHC 30.8 L (31.0-37.0) g/dL Lymphocytes # 0.6 L (1.0-4.8) k/uL Carbon Dioxide 33 H (22-30) mmol/L Creatinine 0.64 L (0.66-1.25) mg/dL Calcium 8.2 L (8.4-10.2) mg/dL
[2023-12-22 06:35] LABS: Basophils % (A) 0 %; Eosinophils # (A) 0.1 k/uL (0-0.7); Eosinophils % (A) 2 %; HCT 26.9 % (39.0-53.0); HGB 8.2 gm/dL (13.0-17.5); Hypochromasia Slight; Lymphocytes # (A) 0.8 k/uL (1.0-4.8); Lymphocytes % (A) 13 %; MCH 29.5 pg (25.0-35.0); MCHC 30.4 g/dL (31.0-37.0); Mean Platelet Volume 6.6; Monocytes # (A) 0.3 k/uL (0-1.0); Monocytes % (A) 5 %; Neutrophils # (A) 4.6 k/uL (1.3-7.7); Neutrophils % (A) 78 %; Platelet Count 386 k/uL (150-450); RBC 2.78 m/uL (4.30-5.90); RDW 13.5 % (11.5-15.5); WBC 5.8 k/uL (3.8-10.6)
[2023-12-22 06:39] LABS: ALT 62 U/L (4-49); AST 94 U/L (17-59); African American GFR (CKD) >90 (>60 ml/min/1.73 sqM); Albumin 2.7 g/dL (3.5-5.0); Alkaline Phosphatase 76 U/L (38-126); Blood Urea Nitrogen 9 mg/dL (9-20); Calcium 8.3 mg/dL (8.4-10.2); Chloride 98 mmol/L (98-107); Glucose 98 mg/dL (74-99); Non-African American GFR(CKD) 88 (>60 ml/min/1.73 sqM); Potassium 3.3 mmol/L (3.5-5.1); Sodium 139 mmol/L (137-145); Total Bilirubin 0.8 mg/dL (0.2-1.3); Total Protein 5.3 g/dL (6.3-8.2)
[2023-12-22 06:45] LABS: Anion Gap 3 mmol/L
[2023-12-22 06:48] LABS: Carbon Dioxide 38 mmol/L (22-30)
[2023-12-22] MEDS ORDERED: Potassium Replacement Protocol 1 EACH MISC MISCELLANE PRN ×2 (06:52→22:34)
--- NOTE | 2023-12-22 08:07 | P.PN ---
Subjective History of Present Illness: The patient is a 77-year-old male who presented with progressive fatigue abdominal pain was found to have ileus, hyponatremia and acute renal injury cardiology consultation was requested because of atrial fibrillation. The patient was in the hospital earlier this month after a fall and a fractured hip, underwent surgery. His echocardiogram preoperatively showed a preserved systolic function with moderate aortic stenosis and a mean gradient of 21 mmHg. He continues to be on vasopressor but at a lower dose. He went in atrial fibrillation earlier this morning with controlled ventricular response, asymptomatic. He has an underlying right bundle branch block and no prior atrial fibrillation during his hospitalization. He has no significant peripheral edema. His urine output has been good. He continues to have an NG tube but he is having flatus and has underwent further evaluation with abdominal x-ray today. Patient has a prior history of stroke and was on Plavix in the past. He had significant hypotension on presentation and received intravenous fluid December 17: The patient is feeling well, he continues to be in atrial fibrillation with controlled ventricle response with episodes with a heart rate up to the 1 teens. He continues to be on IV heparin. He is off norepinephrine and his vasopressin is being weaned. He had a CT scan of the chest that showed consolidation and possible pneumonia. He is passing flatus and tolerating oral intake. His urinary output is good. December 18: The patient is back in sinus mechanism this morning with sinus bradycardia. He is feeling well overall, denies any chest discomfort, dizziness or palpitations. He is off vasopressors. He has no nausea or vomiting. His chest x-ray is suggestive of pneumonia and pleural effusion. Medications: Aspirin 81 mg daily, IV heparin, nicotine patch, metoprolol to tartrate 12.5 mg twice a day, Lipitor 40 mg daily 12/19 patient seen and examined. Patient denies any chest pain or shortness breath. Has not had a bowel movement per nursing. Heart rates in the 50s to 60s in sinus rhythm however drops down into the 40s at time with decrease in blood pressure is well. He is not actually symptomatic during these episodes. His metoprolol however was decreased however still having episodes and temporarily needed to go back on vasopressors. Hemoglobin borderline at 7.8.no hematochezia or melena and tolerating eliquis. 12/20 patient seen and examined. Patient denies any chest pain or pressure. He has been diuresis and states his shortness breath is improving. He is having sinus bradycardic episodes [place] of heart rates in the 30s which are temporary all during the sleeping hours. Per nursing monitoring his sleeping there is high suspicion of sleep apnea. He denies any history of syncope or lightheadedness. He is not on any rate control medications and his TSH was noted to be normal this admission. 12/21 He wore BiPAP overnight without any further significant bradycardic episodes. Therefore bradycardic episodes appear more related to sleep apnea. He did have recurrent episode of short A. fib for a few minutes which was asymptomatic with heart rates up to the 150s and 160s. Came back down to normal sinus rhythm. Denies any chest pain or pressure currently. Physical Examination: Neck: Good carotid upstroke, no bruit, no jugular venous distention. Lungs: Decreased breath sounds at the bases Heart: Irregular rate and rhythm, S1-S2, no S3, no rub. Systolic ejection m urmur. Abdomen: Soft nontender, positive bowel sounds no organomegaly. Extremities: +1 edema, more on the right side, intact distal pulses. Impression: 1. Small bowel obstruction, resolved 2. Atrial fibrillation, new onset, paroxysmal, back in sinus mechanism 3. Acute renal injury, resolved 4. Anemia 5. History of stroke 6. Moderate aortic stenosis 7. asymptomatic sinus bradycardia likely exacerbated by suspected sleep apnea and increased vagal tone while sleeping Plan: having recurrent episodes of A. fib and therefore we will trial rhythm control. Start flecainide. Ideally some degree of AV martha blocking agent with the flecainide and trial of Toprol 12.5 daily. Most of his bradycardic episodes appear related to sleep apnea. Objective - Vital Signs Vital signs: Vital Signs Temp 99.0 F 12/22/23 04:00 Pulse 95 12/22/23 07:58 Resp 15 12/22/23 07:00 BP 136/55 12/22/23 07:00 Pulse Ox 98 12/22/23 07:00 FiO2 28 12/22/23 04:12 Intake & Output 12/21/23 12/22/23 12/22/23 18:59 06:59 18:59 Intake Total 900 60 Output Total 4580 2940 Balance -2670 -2500 Weight 102 kg 96.7 kg Intake: IV 360 60 0.9 20 Piperacillin-Tazobactam 3 100 .375 gm In Sodium Chloride 0.9% 100 ml @ 25 mls/hr IVPB Q8H [facility] Rx#: [id number] Sodium Chloride 0.45% 1, 240 60 000 ml @ 10 mls/hr IV . Q24H [facility] Rx#:[id number] Oral 540 Output: Urine 8450 2940 Other: Voiding Method Indwelling Catheter Indwelling Catheter ABP, PAP, CO, CI - Last Documented Arterial Blood Pressure 104/33 - Labs CBC & Chem 7: 12/22/23 06:08 12/22/23 06:08 Labs: Abnormal Lab Results - Last 24 Hours (Table) 12/22/23 12/22/23 Range/Units 06:08 06:08 RBC 2.78 L (4.30-5.90) m/uL Hgb 8.2 L (13.0-17.5) gm/dL Hct 26.9 L (39.0-53.0) % MCHC 30.4 L (31.0-37.0) g/dL Lymphocytes # 0.8 L (1.0-4.8) k/uL Potassium 3.3 L (3.5-5.1) mmol/L Carbon Dioxide 38 H (22-30) mmol/L Calcium 8.3 L (8.4-10.2) mg/dL AST 94 H (17-59) U/L ALT 62 H (4-49) U/L Total Protein 5.3 L (6.3-8.2) g/dL Albumin 2.7 L (3.5-5.0) g/dL
[2023-12-22] MEDS: POTASSIUM CHLORIDE ER 20 MEQ TAB.ER PO SCH ×3 (08:20→23:31)
[2023-12-22] MEDS: METOPROLOL SUCCINATE (ER) 25 MG TAB.ER.24H PO SCH (08:23)
[2023-12-22] MEDS: FLECAINIDE 50 MG TAB PO SCH (08:31)
[2023-12-22] MEDS: DEXTROSE 5% IN WATER 100 ML with AMIODARONE 150 MG IV ONE (12:30)
--- NOTE | 2023-12-22 12:34 | P.PN ---
Subjective Progress Note Date: 12/22/23 Chevy French, is a 77-year-old male who presented to [facility] emergency room due to abdominal pain and generalized weakness and hypotension. Patient was recently admitted to [facility] after sustaining a fall and having femur fracture he underwent surgery and was transferred to long term for rehab. He was evaluated in the emergency room vital examination on presentation revealed a temperature of 98.7 pulse 80 respiration 30 blood pressure 80/53 pulse ox 97% on 5 L nasal cannula Laboratory data revealed a white blood count of 14.5 hemoglobin 10.1 platelet count 511 sodium 122 potassium 6.0 chloride 79 BUN 83 creatinine 4.23 Testing in the emergency room revealed chest x-ray revealed low lung volumes with generalized hazy appearance which could represent atelectasis versus pulmonary edema, CT scan of the abdomen revealed dilated small bowel loops and stomach without clear focal transition point, and significantly distended urinary bladder with bilateral hydronephrosis. Patient was admitted to medical floor for further evaluation and treatment On 12/16/2023 patient was seen and examined in the ICU, he is alert and oriented in no distress, he is maintained on blood pressure support, triple lumen and arterial line inserted, patient is followed by critical care, he denies any chest pain, or shortness of breath, munoz catheter inserted yesterday, kidney function improving. On 12/17/2023 patient is alert and oriented. Patient remains in the ICU pressure supporting medication. Creatinine improving to 1.28 bun 38 potassium 4.8 sodium 135.current vital signs temp 98.1, heart rate 60, respiratory rate 20, blood pressure 1 today knee 6/41 with pulse ox of96% on 4 L. Patient remains with NG tube nothing by mouth. On 12/18/2023 patient was seen and examined in the ICU he is alert and oriented x 3 in no apparent distress, there is no fever or chills no headache or dizziness no chest pain no shortness of breath no cough no nausea or vomiting no abdominal pain no diarrhea no blood in the stools, patient is passing gas and having bowel movements, no burning with urination no frequency or urgency and no hematuria. Yesterday patient developed atrial fibrillation with rapid ventricular response, he was seen by cardiology and was started on IV heparin. On 12/19/2023 patient was seen and examined in the ICU, he is alert and oriented x 3 in no distress, there is no fever or chills no headache or dizziness no chest pain no shortness of breath no cough no nausea or vomiting no abdominal pain no diarrhea and no urinary symptoms. Patient still has Munoz catheter in. CT scan of the chest done yesterday revealed bilateral consolidative opacities and pleural effusion left greater than right. Patient is maintained on IV Zosyn, he is also maintained on IV heparin for new onset atrial fibrillation, pulmonary and cardiology are following. On 12/20/2023 patient was seen and examined in the ICU he is alert and oriented x 3 in no apparent distress there is no fever or chills no headache or dizziness no chest pain, he is still complaining of cough and shortness of breath with any activity there is no nausea or vomiting no abdominal pain no diarrhea no blood in the stools, Munoz catheter is still in. Vital exam reveals a temperature of 97.7 pulse 57 respiration 13 blood pressure 117/59 pulse ox 98% on 3 L nasal cannula. White blood count 4.9 hemoglobin 7.8 platelet count 328 BUN 14 creatinine 0.74 On 12/21/2023 patient remains in the intensive care unit patient is alert and oriented x 3. Current vital signs temp 97.5, heart 75, respiratory rate 18, blood pressure 133/68 with a pulse ox of 99% on 2 L. White blood cell 4.5, hemoglobin 7.5, creatinine 0.64 and bun 12. Patient remains short of breath wit h cough. Patient denies any nausea vomiting or diarrhea. Patient denies any urinary burning or frequency On 12/22/2023 patient is alert and oriented x 3 currently sitting up in chair. Patient maintained on full liquid diet. Patient having episodes of A-fib with RVR has been started on amiodarone per cardiology. Patient remains on IV Zosyn. Current vital signs temp 98.4, heart rate 122, respiratory rate 26, blood pressure 115/73 with pulse ox 100% on 3 L nasal cannula. Patient denies chest pain or shortness of breath. Patient denies nausea vomiting or diarrhea. Patient denies any urinary burning or frequency Objective - Vital Signs Vital signs: Vital Signs Temp 98.1 F 12/22/23 08:33 Pulse 122 H 12/22/23 12:00 Resp 26 H 12/22/23 12:00 BP 115/73 12/22/23 12:00 Pulse Ox 100 12/22/23 12:00 FiO2 28 12/22/23 04:12 Intake & Output 12/21/23 12/22/23 12/22/23 18:59 06:59 18:59 Intake Total 900 60 60 Output Total 4580 2940 1200 Balance -8302 -7149 -3765 Weight 102 kg 96.7 kg Intake: IV 360 60 60 0.9 20 Piperacillin-Tazobactam 3 100 .375 gm In Sodium Chloride 0.9% 100 ml @ 25 mls/hr IVPB Q8H [facility] Rx#: [id number] Sodium Chloride 0.45% 1, 240 60 60 000 ml @ 10 mls/hr IV . Q24H [facility] Rx#:[id number] Oral 540 Output: Urine 4580 2940 1200 Other: Voiding Method Indwelling Catheter Indwelling Catheter Indwelling Catheter ABP, PAP, CO, CI - Last Documented Arterial Blood Pressure 104/33 - Exam In general patient is alert and oriented x 3 in no distress HEENT head normocephalic and atraumatic Neck is supple no JVD no goiter no lymphadenopathy no carotid bruit Chest examination is clear to auscultation no crackles no wheezing Cardiac exam reveals regular heart sounds S1 and S2 no gallops no murmurs Abdomen is soft with mild diffuse tenderness no organomegaly no palpable masses with sluggish bowel sounds Extremity exam reveals no edema no cyanosis or clubbing Neurological examination reveals no gross focal deficits - Labs CBC & Chem 7: 12/22/23 06:08 12/22/23 06:08 Labs: Abnormal Lab Results - Last 24 Hours (Table) 12/22/23 12/22/23 Range/Units 06:08 06:08 RBC 2.78 L (4.30-5.90) m/uL Hgb 8.2 L (13.0-17.5) gm/dL Hct 26.9 L (39.0-53.0) % MCHC 30.4 L (31.0-37.0) g/dL Lymphocytes # 0.8 L (1.0-4.8) k/uL Potassium 3.3 L (3.5-5.1) mmol/L Carbon Dioxide 38 H (22-30) mmol/L Calcium 8.3 L (8.4-10.2) mg/dL AST 94 H (17-59) U/L ALT 62 H (4-49) U/L Total Protein 5.3 L (6.3-8.2) g/dL Albumin 2.7 L (3.5-5.0) g/dL Assessment and Plan Plan: Abdominal pain Dilated small bowels with possible ileus versus partial small bowel obstruction Urinary retention Hypotension Severe hyponatremia Acute kidney injury Electrolyte imbalance with severe hyperkalemia Leukocytosis Recent fall with right femur fracture with surgical repair New onset atrial fibrillation with rapid ventricular response during this admission At this time patient is admitted to medical floor Munoz catheter was inserted in the emergency room He was started on IV fluid Nephrology and urology consultation were requested For DVT prophylaxis subcu Lovenox Will follow closely
[2023-12-22] MEDS: AMIODARONE 360 MG in DEXTROSE 5% IN WATER 200 ML IV ONE (12:41)
--- NOTE | 2023-12-22 13:33 | P.PN ---
Subjective Progress Note Date: 12/22/23 CHIEF COMPLAINT: Abdominal pain HISTORY OF PRESENT ILLNESS: Patient remains in the ICU. Surgical service following regards to abdominal ileus. Patient is sitting in bedside chair. He denies any nausea or vomiting. He is having flatus. Still no bowel movement. He denies any abdominal pain. He is eating a little of the full liquids. Patient reporting that his abdomen is starting to feel more like the normal size. Afebrile. Episode tachycardia improved. WBC 5.8 potassium is 3.3 PHYSICAL EXAM: VITAL SIGNS: Reviewed GENERAL: no acute distress. Patient is lethargic HEENT: No sclera icterus. Extraocular movements grossly intact. Moist buccal mucosa. Head is atraumatic, normocephalic. Hears conversational speech. No nasal drainage. NECK: Supple without lymphadenopathy. CHEST: Non-labored respirations and equal bilateral excursions. CARDIOVASCULAR: Palpable 2+ radial pulses. ABDOMEN: Soft. distended. Nontender. MUSCULOSKELETAL: No clubbing or cyanosis. NEUROLOGIC: No focal or lateralizing signs. Cranial nerves II through XII grossly intact. SKIN: Well perfused. Good skin turgor. ASSESSMENT: 1. Ileus 2. Urinary retention and bilateral hydronephrosis status post Rich catheter placement 3. Acute kidney injury improved 4. Hyponatremia improved 5. Hypokalemia 6. 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 Recent hip fracture status postsurgical repair 8. Moderate to severe aortic stenosis PLAN: -Continue full liquid diet -Potassium being replaced -Continue stool softener -Increase activity level Physician Drilling Superintendent note has been reviewed by physician. Signing provider agrees with the documented findings, assessment, and plan of care. Objective - Vital Signs Vital signs: Vital Signs Temp 98.4 F 12/22/23 12:00 Pulse 81 12/22/23 13:00 Resp 26 H 12/22/23 13:00 BP 121/66 12/22/23 13:00 Pulse Ox 99 12/22/23 13:00 FiO2 28 12/22/23 04:12 Intake & Output 12/21/23 12/22/23 12/22/23 18:59 06:59 18:59 Intake Total 900 60 60 Output Total 4580 2940 1200 Balance -1966 -8199 -1140 Weight 102 kg 96.7 kg Intake: IV 360 60 60 0.9 20 Piperacillin-Tazobactam 3 100 .375 gm In Sodium Chloride 0.9% 100 ml @ 25 mls/hr IVPB Q8H [facility] Rx#: [id number] Sodium Chloride 0.45% 1, 240 60 60 000 ml @ 10 mls/hr IV . Q24H [facility] Rx#:[id number] Oral 540 Output: Urine 4580 2940 1200 Other: Voiding Method Indwelling Catheter Indwelling Catheter Indwelling Catheter ABP, PAP, CO, CI - Last Documented Arterial Blood Pressure 104/33 - Labs CBC & Chem 7: 12/22/23 06:08 12/22/23 12:13 Labs: Abnormal Lab Results - Last 24 Hours (Table) 12/22/23 12/22/23 12/22/23 Range/Units 06:08 06:08 12:13 RBC 2.78 L (4.30-5.90) m/uL Hgb 8.2 L (13.0-17.5) gm/dL Hct 26.9 L (39.0-53.0) % MCHC 30.4 L (31.0-37.0) g/dL Lymphocytes # 0.8 L (1.0-4.8) k/uL Potassium 3.3 L 3.3 L (3.5-5.1) mmol/L Carbon Dioxide 38 H (22-30) mmol/L Calcium 8.3 L (8.4-10.2) mg/dL AST 94 H (17-59) U/L ALT 62 H (4-49) U/L Total Protein 5.3 L (6.3-8.2) g/dL Albumin 2.7 L (3.5-5.0) g/dL
--- NOTE | 2023-12-22 16:11 | P.PN ---
Subjective Progress Note Date: 12/22/23 Principal diagnosis: Acute small bowel obstruction 77-year-old male patient, presented to the hospital because of abdominal pain, nausea, emesis, abdominal distention along with weakness, and hypotension. He also noted diminished urine output. His last bowel movement was more than 2 days ago. He is not passing any flatus. He was not treated secondary for rehabilitation following a fall with a fracture requiring surgery. In the emergency, the patient was found to have an acute on top of chronic kidney injury. Rich catheter was inserted and the patient immediately produced around 1 L of urine output. Patient was also given an NG tube and a total of 2.5 L of gastric material was aspirated immediately. CAT scan of the abdomen and pelvis was done in the emergency and the patient was found to have fluid-filled esophagus with dilated gas and fluid-filled stomach. Patient also had dilated small bowel with air fluid levels. The distal small bowel appeared collapsed and there was no clear focal transition identified. No focal bowel wall thickening or inflammatory changes. The small bowel measures up to 4.3 cm in size. Gas and stool was present in the large bowel. Appendix was normal. No evidence of interval pneumoperitoneum. Small bilateral pleural effusions along with compressive atelectasis in the lung bases were noted. Blood work showed an acute on top of chronic kidney injury. The patient's creatinine was up to 4.23 with a BUN of 83 and his sodium was 122 with a potassium level of 6 and a chloride was 79 with a bicarb level of 32. Normal LFTs. proBNP level is 468. Amylase and lipase are within normal limits. The white cell count of 14.5 with a hemoglobin 10.1 and a platelet of 511. Coagulation profile is within normal limits. Chest x-ray showed cardiomegaly with mild pulm vascular congestion. For now, the patient is being resuscitated with IV fluids. He is on normal saline at rate of 100 cc an hour. He is also on norepinephrine which is running at 0.15 mcg/kg/min. He is on oxygen at 3 L/min nasal cannula. Triple-lumen catheter was established and the intensive care unit along with an arterial line. General surgery is on the case. Nephrology is also on the case. 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 He is an ex-smoker. 12/16/2023, the patient is being seen for a follow-up. The patient is much more awake compared to yesterday. Noted the patient was aggressive resuscitative IV fluids and over the past 24 hours, the patient received a total of 6 L of IV flu ids. Currently on normal saline at rate of 100 cc an hour. The patient required high doses of pressors overnight and norepinephrine was as high as 0.5 mcg/kg/min. Vasopressin was added and currently norepinephrine is down to 0.32 mcg/kg/min. He is much more awake and alert and is communicating. He is on 3 L of O2 nasal cannula. NG tube is still in place and the total amount of output is given in the order of 3.6 L since the tube was placed. Urine output is improving and the patient is producing around 100 cc an hour. No fever. No chills. White cell count 11.7 with hemoglobin 8.8 and a platelet count of 578. Sodium is at 130, BUN 63 with a creatinine of 2.7. The potassium levels of 5.4 and a serum bicarb is at 20. CPK is 1024. Axes are normal. Serum cortisol was 16.9. proBNP level was 1360. Lactic acid level was ordered and results are still pending for now. Troponins at 0.034. His previous echocardiogram showed moderate aortic stenosis and preserved LV function. He is currently on O2 at 3 L. Chest x-ray shows a triple-lumen catheter in the left subclavian. At the same time, the patient has increased pulm vascular markings and some early infiltration of the left perihilar area. On 12/17/2023, the patient is being seen for a follow-up. The patient is, comfortable on 5 L of oxygen by nasal cannula. Continues to have a congested cough. NG tube is in place and output is minimal. Hemodynamically, is improved and the patient is still on norepinephrine running at 0.16 mcg/kg/min and the patient is also physiologic dose of vasopressin. The patient is on half-normal saline at rate of 130 cc an hour. Overall fluid balance is +1.9 L over the past 24 hours. Blood pressures improved and the patient's urine output is excellent for now. Meanwhile, he is afebrile. Hemodynamically he is improving and the blood pressure has essentially improved. We should be able to wean down the pressors. Meanwhile, the patient chest x-ray showing cardiomegaly and the patient has worsening left lower lobe pulmonary filtrate. This could be atelectasis versus pneumonia. NG tube is in a good location. There is background cardiomegaly. The patient remains on IV Zosyn as a broad-spectrum antibiotic coverage for now. The patient is also on Lovenox 40 mg subcu for DVT prophylaxis. The white cell count is 7.6 with a hemoglobin of 7.6 and a platelet count of 398. BUN 38 with a creatinine of 1.2 and a sodium levels at 135 and potassium levels of 4.5. LFTs are essentially within normal limits. Bowel sounds are more active on today's evaluation. The patient remains n.p.o. for now. No other significant events overnight. 12/18/2023, I am seeing the patient for a follow-up. The patient is doing well. He is passing flatus. Had a bowel movement yesterday. Output from the G-tube is minimal. Based on that, I ended up removing the NG tube today. I noted some progressive worsening his oxygenation. Earlier this morning, the patient was placed on O2 at 15 L. The chest x-ray shows worsening in bilateral pulmonary filtrates. Based on that, I ordered a CAT scan of the chest to evaluate the patient's pulmonary findings and the CAT scan was completed this morning and it shows evidence of bilateral consolidation and opacities noted bilateral pleural effusion left more than right. Underlying pneumonia cannot be completely excluded. The patient's renal function has essentially normalized. The white cell count of 6.3 with a hemoglobin 7.6 and a platelet count of 366. The sodium is at 141, bicarb is at 27, BUN 22 with a creatinine of 0.9. LFTs are normal. The patient is awake and alert. He remains in atrial fibrillation. He was found to be slightly more tachycardic on today's evaluation. He remains on IV heparin for now. Antibiotic coverage is with IV Zosyn. On today's evaluation of 12/19/2023, the patient is being seen for a follow-up. Patient is currently on 3 days of oxygen by nasal cannula. Taking clear liquid diet. He is on half-normal saline which is running at 75 cc an hour. No nausea. No vomiting. Abdominal pain. No chest pain. He has been started on IV heparin regarding episode of atrial fibrillation. He is also on metoprolol 25 mg twice a day. His blood work shows a WBC count of 5.2 with a hemoglobin 7.8 and platelet count of 348. Sodium is at 138 with a potassium level of 4.3, bicarb is at 31, BUN is 18 with a creatinine of 0.7. LFTs are within normal limits. Awake and alert and communicating. No other significant events overnight. Patient evaluated today on 12/20/23, remains in the ICU, his nasogastric tube was discontinued by surgery, patient seems to be comfortable, not in distress, intermittently noted to have bradycardia and drop in his blood pressure, being addressed by cardiology. Patient denies being short of breath denies abdominal pain although his abdomen seems to be distended and no bowel sounds noted. Patient remains on Zosyn, his last bowel movement was 12/16. WBC count is 4.9 hemoglobin 7.8 electrolytes are normal renal profile is normal, his metoprolol was decreased by cardiology, because of his intermittent episodes of bradycardia and hypotension Patient was evaluated today 12/21/2023, remains in the ICU, tolerating liquid diet well, still had no bowel movement since the . Patient had a presentation of the ileus, urinary retention and bilateral hydronephrosis, acute kidney injury, hyponatremia, and history of CVA on Plavix, also had a history of recent hip fracture. And in addition to this he has moderate to severe aortic stenosis. Today the patient seems to be comfortable, not in any distress, on 2 L nasal cannula, hemoglobin is 7.5, otherwise the labs were unremarkable. Patient remains on Zosyn empirically, he does have abnormal chest x-ray showing bilateral airspace disease. Patient had another episode last night of bradycardia and according to the nurse he may have had an episode of obstructive sleep apnea associated with bradycardia. Hence I am recommending BiPAP tonight at 02/24/28%.WBC count is 4.5 hemoglobin 7.5 electrolytes are normal renal profile is normal Patient was seen today on 12/22/2023, remains in the ICU, remains on nasal cannula does not seem to be in distress he is on 3 L nasal cannula patient did not tolerate BiPAP well last night, and he kept removing it. Patient is on Eliquis is also on Zosyn, and the plan is to send the patient to 3 S. once a bed becomes available. Patient was seen by cardiology, addressing his arrhythmia and his blood pressure. Pulmonary vinson patient remains on diuretics, and he remains also on antibiotics. Improving, does not seem to be in any distress todayPatient even had a bowel movement today. WBC count is 5.8 hemoglobin 8.2 electrolytes are normal potassium is a bit low at 3.3 BUN is 9 creatinine 0.78. Objective - Vital Signs Vital signs: Vital Signs Temp 98.4 F 12/22/23 12:00 Pulse 73 12/22/23 15:37 Resp 26 H 12/22/23 13:00 BP 121/66 12/22/23 13:00 Pulse Ox 99 12/22/23 13:00 FiO2 28 12/22/23 04:12 Intake & Output 12/21/23 12/22/23 12/22/23 18:59 06:59 18:59 Intake Total 900 60 60 Output Total 4580 2940 1200 Balance -3680 -2880 -1140 Weight 102 kg 96.7 kg Intake: IV 360 60 60 0.9 20 Piperacillin-Tazobactam 3 100 .375 gm In Sodium Chloride 0.9% 100 ml @ 25 mls/hr IVPB Q8H [facility] Rx#: [id number] Sodium Chloride 0.45% 1, 240 60 60 000 ml @ 10 mls/hr IV . Q24H [facility] Rx#:[id number] Oral 540 Output: Urine 4580 2940 1200 Other: Voiding Method Indwelling Catheter Indwelling Catheter Indwelling Catheter ABP, PAP, CO, CI - Last Documented Arterial Blood Pressure 104/33 - Exam General: Revealed 77-year-old white male in no distress.On 3 L nasal cannula HEENT head normocephalic and atraumatic Neck is supple no JVD no goiter no lymphadenopathy no carotid bruit Chest examination: Diminished breath sound bilaterally no crackles rhonchi or wheezes Cardiac exam reveals regular heart sounds S1 and S2 no gallops 2/6 systolic murmur throughout the precordium Abdomen soft, nontender, no rebound no guarding, positive bowel sounds. Extremity exam reveals no edema no cyanosis or clubbing Neurological examination reveals no gross focal deficits Psychiatric: Normal mood affect and normal mental status examination. Skin: No rashes. - Labs CBC & Chem 7: 12/22/23 06:08 12/22/23 12:13 Labs: Abnormal Lab Results - Last 24 Hours (Table) 12/22/23 12/22/23 12/22/23 Range/Units 06:08 06:08 12:13 RBC 2.78 L (4.30-5.90) m/uL Hgb 8.2 L (13.0-17.5) gm/dL Hct 26.9 L (39.0-53.0) % MCHC 30.4 L (31.0-37.0) g/dL Lymphocytes # 0.8 L (1.0-4.8) k/uL Potassium 3.3 L 3.3 L (3.5-5.1) mmol/L Carbon Dioxide 38 H (22-30) mmol/L Calcium 8.3 L (8.4-10.2) mg/dL AST 94 H (17-59) U/L ALT 62 H (4-49) U/L Total Protein 5.3 L (6.3-8.2) g/dL Albumin 2.7 L (3.5-5.0) g/dL Assessment and Plan Assessment: Impression: Small bowel obstruction/ileus with secondary abdominal pain and distention, and clinically improved and NG tube was removed on 12/18/2023 General Surgery is on the case Acute kidney injury, recovered Acute hyperkalemia secondary to above, improving Moderately severe aortic stenosis Acute hypoxic respiratory failure, currently on 2 L of oxygen by nasal cannula. The patient has consolidation in the lung bases and bilateral pleural effusion left more than right. On diuretics he is also on antibiotics Hypotension, likely hypovolemic in nature in addition to presence of a moderately severe aortic stenosis which probably contributed to his significant drop in the blood pressure, recovered Recent hip fracture status post ORIF History of CVA maintained on Plavix with some residual left-sided weakness Hyperlipidemia Anemia of chronic disease Acute hyponatremia in the setting of obstructive uropathy and renal failure, improving Recommendation: Transfer patient to a monitored bed and selective once a bed is available Advance diet Continue to monitor daily I's and O's and fluid status Continue Zosyn Continue Lasix Patient is refusing to use BiPAP at night as he does seem to have witnessed obstructive sleep apnea syndrome IV fluid at KVO Will continue to follow Time with Patient: Less than 30
[2023-12-22] MEDS: AMIODARONE 450 MG in DEXTROSE 5% IN WATER 250 ML IV SCH (18:14)
[2023-12-23 06:18] LABS: Basophils % (A) 0 %; Eosinophils # (A) 0.2 k/uL (0-0.7); Eosinophils % (A) 3 %; HCT 26.9 % (39.0-53.0); HGB 8.7 gm/dL (13.0-17.5); Lymphocytes # (A) 1.2 k/uL (1.0-4.8); Lymphocytes % (A) 14 %; MCHC 32.4 g/dL (31.0-37.0); MCV 95.9 fL (80.0-100.0); Monocytes # (A) 0.3 k/uL (0-1.0); Monocytes % (A) 4 %; Neutrophils # (A) 6.4 k/uL (1.3-7.7); Neutrophils % (A) 78 %; Platelet Count 349 k/uL (150-450); RDW 14.4 % (11.5-15.5); WBC 8.3 k/uL (3.8-10.6)
[2023-12-23 06:43] LABS: ALT 75 U/L (4-49); AST 84 U/L (17-59); African American GFR (CKD) >90 (>60 ml/min/1.73 sqM); Albumin 2.6 g/dL (3.5-5.0); Alkaline Phosphatase 69 U/L (38-126); Blood Urea Nitrogen 12 mg/dL (9-20); Chloride 94 mmol/L (98-107); Glucose 107 mg/dL (74-99); Non-African American GFR(CKD) 85 (>60 ml/min/1.73 sqM); Potassium 3.8 mmol/L (3.5-5.1); Sodium 138 mmol/L (137-145); Total Bilirubin 0.4 mg/dL (0.2-1.3); Total Protein 5.2 g/dL (6.3-8.2)
[2023-12-23 06:51] LABS: Anion Gap 6 mmol/L; Carbon Dioxide 38 mmol/L (22-30)
--- NOTE | 2023-12-23 10:57 | P.PN ---
Subjective Progress Note Date: 12/23/23 CHIEF COMPLAINT: Abdominal pain HISTORY OF PRESENT ILLNESS: Patient remains in the ICU as a stepdown bed. Surgical service following regards to abdominal ileus. Patient denies any abdominal pain. He is having flatus. Denies any nausea or vomiting. Currently on a full liquid diet. Afebrile. WBC 8.3 Hgb 8.7 platelets 349 potassium 3.8 PHYSICAL EXAM: VITAL SIGNS: Reviewed GENERAL: no acute distress. Patient is lethargic HEENT: No sclera icterus. Extraocular movements grossly intact. Moist buccal mucosa. Head is atraumatic, normocephalic. Hears conversational speech. No nasal drainage. NECK: Supple without lymphadenopathy. CHEST: Non-labored respirations and equal bilateral excursions. CARDIOVASCULAR: Palpable 2+ radial pulses. ABDOMEN: Soft. distended. Nontender. MUSCULOSKELETAL: No clubbing or cyanosis. NEUROLOGIC: No focal or lateralizing signs. Cranial nerves II through XII grossly intact. SKIN: Well perfused. Good skin turgor. ASSESSMENT: 1. Ileus 2. Urinary retention and bilateral hydronephrosis status post Rich catheter placement 3. Acute kidney injury improved 4. Hyponatremia improved 5. Hypokalemia improved 6. 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 Recent hip fracture status postsurgical repair 8. Moderate to severe aortic stenosis PLAN: -Continue full liquid diet -Lactulose added -Continue stool softener -Increase activity level Physician Business Project Manager note has been reviewed by physician. Signing provider agrees with the documented findings, assessment, and plan of care. Objective - Vital Signs Vital signs: Vital Signs Temp 98.0 F 12/23/23 08:00 Pulse 66 12/23/23 08:00 Resp 18 12/23/23 08:00 BP 104/51 12/23/23 08:00 Pulse Ox 92 L 12/23/23 08:00 FiO2 28 12/23/23 04:00 Intake & Output 12/22/23 12/23/23 12/23/23 18:59 06:59 18:59 Intake Total 190 30 90 Output Total 2600 1100 1550 Balance -1447 -0056 -1232 Weight 94.1 kg Intake: IV 190 30 90 Piperacillin-Tazobactam 3 100 .375 gm In Sodium Chloride 0.9% 100 ml @ 25 mls/hr IVPB Q8H [facility] Rx#: [id number] Sodium Chloride 0.45% 1, 90 30 90 000 ml @ 10 mls/hr IV . Q24H [facility] Rx#:[id number] Output: Urine 2600 1100 1550 Other: Voiding Method Indwelling Catheter Indwelling Catheter Indwelling Catheter ABP, PAP, CO, CI - Last Documented Arterial Blood Pressure 104/33 - Labs CBC & Chem 7: 12/23/23 05:47 12/23/23 05:47 Labs: Abnormal Lab Results - Last 24 Hours (Table) 12/22/23 12/22/23 12/23/23 Range/Units 12:13 20:46 05:47 RBC 2.80 L (4.30-5.90) m/uL Hgb 8.7 L (13.0-17.5) gm/dL Hct 26.9 L (39.0-53.0) % Potassium 3.3 L 3.3 L (3.5-5.1) mmol/L Chloride (98-107) mmol/L Carbon Dioxide (22-30) mmol/L Glucose (74-99) mg/dL Calcium (8.4-10.2) mg/dL AST (17-59) U/L ALT (4-49) U/L Total Protein (6.3-8.2) g/dL Albumin (3.5-5.0) g/dL 12/23/23 Range/Units 05:47 RBC (4.30-5.90) m/uL Hgb (13.0-17.5) gm/dL Hct (39.0-53.0) % Potassium (3.5-5.1) mmol/L Chloride 94 L (98-107) mmol/L Carbon Dioxide 38 H (22-30) mmol/L Glucose 107 H (74-99) mg/dL Calcium 8.0 L (8.4-10.2) mg/dL AST 84 H (17-59) U/L ALT 75 H (4-49) U/L Total Protein 5.2 L (6.3-8.2) g/dL Albumin 2.6 L (3.5-5.0) g/dL
--- NOTE | 2023-12-23 11:04 | CDI ---
Documentation Clarification Form Date: 12/23/2023 10:18:00 AM From: Anjana Moss RN, CCDS Phone: [phone] Admit Date: 12/15/2023 12:42:00 PM Patient Name: Chevy French Visit Number: [id number] Discharge Date: ATTENTION: The Clinical Documentation Specialists (CDI) and [facility] Coding Staff appreciate your assistance in clarifying documentation. Please respond to the clarification below the line at the bottom and electronically sign. The CDI & [facility] Coding staff will review the response and follow-up if needed. Please note: Queries are made part of the Legal Health Record. If you have any questions, please contact the author of this message via ITS. Doctor/Provider: Kristine Pena Conflicting documentation has been found in the medical record. As attending physician, please provide clarification. H/P and subsequent progress notes: dilated small bowels with possible ileus versus partial small bowel obstruction. Surgery consult and subsequent progress note: (12/17/23) Ileus Pulmonary consult and subsequent progress notes: Small bowel obstruction History/Risk Factors: CVA/TIA, Hyperlipidemia, Hypertension, current smoker Clinical Indicators: 77-year-old male presenting to ED with complains of abdominal discomfort. Patient has reported edema and hyponatremia. 12/14 Dilated small bowel, stomach, and visualized esophagus without clear focal transition point. Findings suggest ileus versus partial small bowel obstruction. 12/16 Nonspecific abdomen without evidence of free air or obstruction. 12/14 Labs: WBC 14.5 HGB 10.1 NA+ 121 k+ 6.1 CL 85 BUN 83 CR 4.24 12/14 vs 80/53 80 30 98.7 97% NC Treatment: NPO NG Tube for decompression Continue IV fluids Please clarify which diagnosis is most appropriate: [ xxx ] Ileus [ ] Partial Small bowel obstruction [ ] Ileus or partial small bowel obstruction [ ] Other (please specify) [ ] Unable to determine (Template Last Revised: May 2020) MTDD
--- NOTE | 2023-12-23 16:08 | P.PN ---
Subjective Progress Note Date: 12/23/23 Chevy French, is a 77-year-old male who presented to [facility] emergency room due to abdominal pain and generalized weakness and hypotension. Patient was recently admitted to [facility] after sustaining a fall and having femur fracture he underwent surgery and was transferred to [facility] for rehab. He was evaluated in the emergency room vital examination on presentation revealed a temperature of 98.7 pulse 80 respiration 30 blood pressure 80/53 pulse ox 97% on 5 L nasal cannula Laboratory data revealed a white blood count of 14.5 hemoglobin 10.1 platelet count 511 sodium 122 potassium 6.0 chloride 79 BUN 83 creatinine 4.23 Testing in the emergency room revealed chest x-ray revealed low lung volumes with generalized hazy appearance which could represent atelectasis versus pulmonary edema, CT scan of the abdomen revealed dilated small bowel loops and stomach without clear focal transition point, and significantly distended urinary bladder with bilateral hydronephrosis. Patient was admitted to medical floor for further evaluation and treatment On 12/16/2023 patient was seen and examined in the ICU, he is alert and oriented in no distress, he is maintained on blood pressure support, triple lumen and arterial line inserted, patient is followed by critical care, he denies any chest pain, or shortness of breath, munoz catheter inserted yesterday, kidney function improving. On 12/17/2023 patient is alert and oriented. Patient remains in the ICU pressure supporting medication. Creatinine improving to 1.28 bun 38 potassium 4.8 sodium 135.current vital signs temp 98.1, heart rate 60, respiratory rate 20, blood pressure 1 today knee 6/41 with pulse ox of96% on 4 L. Patient remains with NG tube nothing by mouth. On 12/18/2023 patient was seen and examined in the ICU he is alert and oriented x 3 in no apparent distress, there is no fever or chills no headache or dizziness no chest pain no shortness of breath no cough no nausea or vomiting no abdominal pain no diarrhea no blood in the stools, patient is passing gas and having bowel movements, no burning with urination no frequency or urgency and no hematuria. Yesterday patient developed atrial fibrillation with rapid ventricular response, he was seen by cardiology and was started on IV heparin. On 12/19/2023 patient was seen and examined in the ICU, he is alert and oriented x 3 in no distress, there is no fever or chills no headache or dizziness no chest pain no shortness of breath no cough no nausea or vomiting no abdominal pain no diarrhea and no urinary symptoms. Patient still has Munoz catheter in. CT scan of the chest done yesterday revealed bilateral consolidative opacities and pleural effusion left greater than right. Patient is maintained on IV Zosyn, he is also maintained on IV heparin for new onset atrial fibrillation, pulmonary and cardiology are following. On 12/20/2023 patient was seen and examined in the ICU he is alert and oriented x 3 in no apparent distress there is no fever or chills no headache or dizziness no chest pain, he is still complaining of cough and shortness of breath with any activity there is no nausea or vomiting no abdominal pain no diarrhea no blood in the stools, Munoz catheter is still in. Vital exam reveals a temperature of 97.7 pulse 57 respiration 13 blood pressure 117/59 pulse ox 98% on 3 L nasal cannula. White blood count 4.9 hemoglobin 7.8 platelet count 328 BUN 14 creatinine 0.74 On 12/21/2023 patient remains in the intensive care unit patient is alert and oriented x 3. Current vital signs temp 97.5, heart 75, respiratory rate 18, blood pressure 133/68 with a pulse ox of 99% on 2 L. White blood cell 4.5, hemoglobin 7.5, creatinine 0.64 and bun 12. Patient remains short of breath wit h cough. Patient denies any nausea vomiting or diarrhea. Patient denies any urinary burning or frequency On 12/22/2023 patient is alert and oriented x 3 currently sitting up in chair. Patient maintained on full liquid diet. Patient having episodes of A-fib with RVR has been started on amiodarone per cardiology. Patient remains on IV Zosyn. Current vital signs temp 98.4, heart rate 122, respiratory rate 26, blood pressure 115/73 with pulse ox 100% on 3 L nasal cannula. Patient denies chest pain or shortness of breath. Patient denies nausea vomiting or diarrhea. Patient denies any urinary burning or frequency On 12/23/2023 patient was seen and examined in the ICU, he is alert and oriented x 3 in no distress, there is no fever or chills no headache or dizziness no chest pain no shortness of breath no cough no nausea or vomiting no abdominal pain no diarrhea and no urinary symptoms. Patient still has Munoz catheter in. CT scan of the chest done yesterday revealed bilateral consolidative opacities and pleural effusion left greater than right. Patient is still maintained on IV Zosyn, he is also maintained on Eliquis for new onset atrial fibrillation, pulmonary and cardiology are following. Objective - Vital Signs Vital signs: Vital Signs Temp 98.0 F 12/23/23 08:00 Pulse 66 12/23/23 08:00 Resp 18 12/23/23 08:00 BP 104/51 12/23/23 08:00 Pulse Ox 92 L 12/23/23 08:00 FiO2 28 12/23/23 04:00 Intake & Output 12/22/23 12/23/23 12/23/23 18:59 06:59 18:59 Intake Total 190 30 Output Total 2600 1100 Balance -2410 -1070 Weight 94.1 kg Intake: IV 190 30 Piperacillin-Tazobactam 3 100 .375 gm In Sodium Chloride 0.9% 100 ml @ 25 mls/hr IVPB Q8H [facility] Rx#: [id number] Sodium Chloride 0.45% 1, 90 30 000 ml @ 10 mls/hr IV . Q24H [facility] Rx#:[id number] Output: Urine 2600 1100 Other: Voiding Method Indwelling Catheter Indwelling Catheter Indwelling Catheter ABP, PAP, CO, CI - Last Documented Arterial Blood Pressure 104/33 - Exam In general patient is alert and oriented x 3 in no distress HEENT head normocephalic and atraumatic Neck is supple no JVD no goiter no lymphadenopathy no carotid bruit Chest examination is clear to auscultation no crackles no wheezing Cardiac exam reveals regular heart sounds S1 and S2 no gallops no murmurs Abdomen is soft with mild diffuse tenderness no organomegaly no palpable masses with sluggish bowel sounds Extremity exam reveals no edema no cyanosis or clubbing Neurological examination reveals no gross focal deficits - Labs CBC & Chem 7: 12/23/23 05:47 12/23/23 05:47 Labs: Abnormal Lab Results - Last 24 Hours (Table) 12/22/23 12/22/23 12/23/23 Range/Units 12:13 20:46 05:47 RBC 2.80 L (4.30-5.90) m/uL Hgb 8.7 L (13.0-17.5) gm/dL Hct 26.9 L (39.0-53.0) % Potassium 3.3 L 3.3 L (3.5-5.1) mmol/L Chloride (98-107) mmol/L Carbon Dioxide (22-30) mmol/L Glucose (74-99) mg/dL Calcium (8.4-10.2) mg/dL AST (17-59) U/L ALT (4-49) U/L Total Protein (6.3-8.2) g/dL Albumin (3.5-5.0) g/dL 12/23/23 Range/Units 05:47 RBC (4.30-5.90) m/uL Hgb (13.0-17.5) gm/dL Hct (39.0-53.0) % Potassium (3.5-5.1) mmol/L Chloride 94 L (98-107) mmol/L Carbon Dioxide 38 H (22-30) mmol/L Glucose 107 H (74-99) mg/dL Calcium 8.0 L (8.4-10.2) mg/dL AST 84 H (17-59) U/L ALT 75 H (4-49) U/L Total Protein 5.2 L (6.3-8.2) g/dL Albumin 2.6 L (3.5-5.0) g/dL Assessment and Plan Plan: Abdominal pain Dilated small bowels with possible ileus versus partial small bowel obstruction Urinary retention Hypotension Severe hyponatremia Acute kidney injury Electrolyte imbalance with severe hyperkalemia Leukocytosis Recent fall with right femur fracture with surgical repair New onset atrial fibrillation with rapid ventricular response during this admission At this time patient is admitted to medical floor Munoz catheter was inserted in the emergency room He was started on IV fluid Nephrology and urology consultation were requested For DVT prophylaxis subcu Lovenox Will follow closely
--- NOTE | 2023-12-23 16:17 | P.PN ---
Subjective Progress Note Date: 12/23/23 Principal diagnosis: Acute small bowel obstruction 77-year-old male patient, presented to the hospital because of abdominal pain, nausea, emesis, abdominal distention along with weakness, and hypotension. He also noted diminished urine output. His last bowel movement was more than 2 days ago. He is not passing any flatus. He was not treated secondary for rehabilitation following a fall with a fracture requiring surgery. In the emergency, the patient was found to have an acute on top of chronic kidney injury. Rich catheter was inserted and the patient immediately produced around 1 L of urine output. Patient was also given an NG tube and a total of 2.5 L of gastric material was aspirated immediately. CAT scan of the abdomen and pelvis was done in the emergency and the patient was found to have fluid-filled esophagus with dilated gas and fluid-filled stomach. Patient also had dilated small bowel with air fluid levels. The distal small bowel appeared collapsed and there was no clear focal transition identified. No focal bowel wall thickening or inflammatory changes. The small bowel measures up to 4.3 cm in size. Gas and stool was present in the large bowel. Appendix was normal. No evidence of interval pneumoperitoneum. Small bilateral pleural effusions along with compressive atelectasis in the lung bases were noted. Blood work showed an acute on top of chronic kidney injury. The patient's creatinine was up to 4.23 with a BUN of 83 and his sodium was 122 with a potassium level of 6 and a chloride was 79 with a bicarb level of 32. Normal LFTs. proBNP level is 468. Amylase and lipase are within normal limits. The white cell count of 14.5 with a hemoglobin 10.1 and a platelet of 511. Coagulation profile is within normal limits. Chest x-ray showed cardiomegaly with mild pulm vascular congestion. For now, the patient is being resuscitated with IV fluids. He is on normal saline at rate of 100 cc an hour. He is also on norepinephrine which is running at 0.15 mcg/kg/min. He is on oxygen at 3 L/min nasal cannula. Triple-lumen catheter was established and the intensive care unit along with an arterial line. General surgery is on the case. Nephrology is also on the case. 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 He is an ex-smoker. 12/16/2023, the patient is being seen for a follow-up. The patient is much more awake compared to yesterday. Noted the patient was aggressive resuscitative IV fluids and over the past 24 hours, the patient received a total of 6 L of IV flu ids. Currently on normal saline at rate of 100 cc an hour. The patient required high doses of pressors overnight and norepinephrine was as high as 0.5 mcg/kg/min. Vasopressin was added and currently norepinephrine is down to 0.32 mcg/kg/min. He is much more awake and alert and is communicating. He is on 3 L of O2 nasal cannula. NG tube is still in place and the total amount of output is given in the order of 3.6 L since the tube was placed. Urine output is improving and the patient is producing around 100 cc an hour. No fever. No chills. White cell count 11.7 with hemoglobin 8.8 and a platelet count of 578. Sodium is at 130, BUN 63 with a creatinine of 2.7. The potassium levels of 5.4 and a serum bicarb is at 20. CPK is 1024. Axes are normal. Serum cortisol was 16.9. proBNP level was 1360. Lactic acid level was ordered and results are still pending for now. Troponins at 0.034. His previous echocardiogram showed moderate aortic stenosis and preserved LV function. He is currently on O2 at 3 L. Chest x-ray shows a triple-lumen catheter in the left subclavian. At the same time, the patient has increased pulm vascular markings and some early infiltration of the left perihilar area. On 12/17/2023, the patient is being seen for a follow-up. The patient is, comfortable on 5 L of oxygen by nasal cannula. Continues to have a congested cough. NG tube is in place and output is minimal. Hemodynamically, is improved and the patient is still on norepinephrine running at 0.16 mcg/kg/min and the patient is also physiologic dose of vasopressin. The patient is on half-normal saline at rate of 130 cc an hour. Overall fluid balance is +1.9 L over the past 24 hours. Blood pressures improved and the patient's urine output is excellent for now. Meanwhile, he is afebrile. Hemodynamically he is improving and the blood pressure has essentially improved. We should be able to wean down the pressors. Meanwhile, the patient chest x-ray showing cardiomegaly and the patient has worsening left lower lobe pulmonary filtrate. This could be atelectasis versus pneumonia. NG tube is in a good location. There is background cardiomegaly. The patient remains on IV Zosyn as a broad-spectrum antibiotic coverage for now. The patient is also on Lovenox 40 mg subcu for DVT prophylaxis. The white cell count is 7.6 with a hemoglobin of 7.6 and a platelet count of 398. BUN 38 with a creatinine of 1.2 and a sodium levels at 135 and potassium levels of 4.5. LFTs are essentially within normal limits. Bowel sounds are more active on today's evaluation. The patient remains n.p.o. for now. No other significant events overnight. 12/18/2023, I am seeing the patient for a follow-up. The patient is doing well. He is passing flatus. Had a bowel movement yesterday. Output from the G-tube is minimal. Based on that, I ended up removing the NG tube today. I noted some progressive worsening his oxygenation. Earlier this morning, the patient was placed on O2 at 15 L. The chest x-ray shows worsening in bilateral pulmonary filtrates. Based on that, I ordered a CAT scan of the chest to evaluate the patient's pulmonary findings and the CAT scan was completed this morning and it shows evidence of bilateral consolidation and opacities noted bilateral pleural effusion left more than right. Underlying pneumonia cannot be completely excluded. The patient's renal function has essentially normalized. The white cell count of 6.3 with a hemoglobin 7.6 and a platelet count of 366. The sodium is at 141, bicarb is at 27, BUN 22 with a creatinine of 0.9. LFTs are normal. The patient is awake and alert. He remains in atrial fibrillation. He was found to be slightly more tachycardic on today's evaluation. He remains on IV heparin for now. Antibiotic coverage is with IV Zosyn. On today's evaluation of 12/19/2023, the patient is being seen for a follow-up. Patient is currently on 3 days of oxygen by nasal cannula. Taking clear liquid diet. He is on half-normal saline which is running at 75 cc an hour. No nausea. No vomiting. Abdominal pain. No chest pain. He has been started on IV heparin regarding episode of atrial fibrillation. He is also on metoprolol 25 mg twice a day. His blood work shows a WBC count of 5.2 with a hemoglobin 7.8 and platelet count of 348. Sodium is at 138 with a potassium level of 4.3, bicarb is at 31, BUN is 18 with a creatinine of 0.7. LFTs are within normal limits. Awake and alert and communicating. No other significant events overnight. Patient evaluated today on 12/20/23, remains in the ICU, his nasogastric tube was discontinued by surgery, patient seems to be comfortable, not in distress, intermittently noted to have bradycardia and drop in his blood pressure, being addressed by cardiology. Patient denies being short of breath denies abdominal pain although his abdomen seems to be distended and no bowel sounds noted. Patient remains on Zosyn, his last bowel movement was 12/16. WBC count is 4.9 hemoglobin 7.8 electrolytes are normal renal profile is normal, his metoprolol was decreased by cardiology, because of his intermittent episodes of bradycardia and hypotension Patient was evaluated today 12/21/2023, remains in the ICU, tolerating liquid diet well, still had no bowel movement since the . Patient had a presentation of the ileus, urinary retention and bilateral hydronephrosis, acute kidney injury, hyponatremia, and history of CVA on Plavix, also had a history of recent hip fracture. And in addition to this he has moderate to severe aortic stenosis. Today the patient seems to be comfortable, not in any distress, on 2 L nasal cannula, hemoglobin is 7.5, otherwise the labs were unremarkable. Patient remains on Zosyn empirically, he does have abnormal chest x-ray showing bilateral airspace disease. Patient had another episode last night of bradycardia and according to the nurse he may have had an episode of obstructive sleep apnea associated with bradycardia. Hence I am recommending BiPAP tonight at 02/24/28%.WBC count is 4.5 hemoglobin 7.5 electrolytes are normal renal profile is normal Patient was seen today on 12/22/2023, remains in the ICU, remains on nasal cannula does not seem to be in distress he is on 3 L nasal cannula patient did not tolerate BiPAP well last night, and he kept removing it. Patient is on Eliquis is also on Zosyn, and the plan is to send the patient to 3 [address]. once a bed becomes available. Patient was seen by cardiology, addressing his arrhythmia and his blood pressure. Pulmonary vinson patient remains on diuretics, and he remains also on antibiotics. Improving, does not seem to be in any distress todayPatient even had a bowel movement today. WBC count is 5.8 hemoglobin 8.2 electrolytes are normal potassium is a bit low at 3.3 BUN is 9 creatinine 0.78. Patient was evaluated today on 12/23/2023, patient remains in the ICU as an overflow. He is on 2 L nasal cannula, patient is doing great, patient has been offered BiPAP for his obstructive sleep apnea but refuses to use it. He is being considered for possible transfer to rehab, and I will clear the patient if he is cleared by cardiology. In the meantime we will try to get the patient out of the ICU he has no GI issues, he is having bowel movements without any di fficulty. His abdomen is soft. Denies any shortness of breath or cough or wheezing. WBC count is 8.3 hemoglobin 8.7 basic metabolic profile is normal and renal profile is normal bicarb is 38. Objective - Vital Signs Vital signs: Vital Signs Temp 98.1 F 12/23/23 15:27 Pulse 64 12/23/23 15:49 Resp 18 12/23/23 15:27 BP 103/63 12/23/23 15:27 Pulse Ox 95 12/23/23 15:27 FiO2 28 12/23/23 04:00 Intake & Output 12/22/23 12/23/23 12/23/23 18:59 06:59 18:59 Intake Total 190 30 340 Output Total 2600 1100 1550 Balance -2410 -1070 -1210 Weight 94.1 kg Intake: IV 190 30 90 Piperacillin-Tazobactam 3 100 .375 gm In Sodium Chloride 0.9% 100 ml @ 25 mls/hr IVPB Q8H [facility] Rx#: [id number] Sodium Chloride 0.45% 1, 90 30 90 000 ml @ 10 mls/hr IV . Q24H [facility] Rx#:[id number] Intake, IV Titration 250 Amount Amiodarone 450 mg In 250 Dextrose 5% in Water 250 ml @ 0.5 MG/MIN 16.667 mls/hr IV .Q15H [facility] Rx#: [id number] Output: Urine 2600 1100 1550 Other: Voiding Method Indwelling Catheter Indwelling Catheter Indwelling Catheter ABP, PAP, CO, CI - Last Documented Arterial Blood Pressure 104/33 - Exam General: Revealed 77-year-old white male in no distress.On 2L nasal cannula HEENT head normocephalic and atraumatic Neck is supple no JVD no goiter no lymphadenopathy no carotid bruit Chest examination: Diminished breath sound bilaterally no crackles rhonchi or wheezes Cardiac exam reveals regular heart sounds S1 and S2 no gallops 2/6 systolic murmur throughout the precordium Abdomen soft, nontender, no rebound no guarding, positive bowel sounds. Extremity exam reveals no edema no cyanosis or clubbing Neurological examination reveals no gross focal deficits Psychiatric: Normal mood affect and normal mental status examination. Skin: No rashes. - Labs CBC & Chem 7: 12/23/23 05:47 12/23/23 05:47 Labs: Abnormal Lab Results - Last 24 Hours (Table) 12/22/23 12/23/23 12/23/23 Range/Units 20:46 05:47 05:47 RBC 2.80 L (4.30-5.90) m/uL Hgb 8.7 L (13.0-17.5) gm/dL Hct 26.9 L (39.0-53.0) % Potassium 3.3 L (3.5-5.1) mmol/L Chloride 94 L (98-107) mmol/L Carbon Dioxide 38 H (22-30) mmol/L Glucose 107 H (74-99) mg/dL Calcium 8.0 L (8.4-10.2) mg/dL AST 84 H (17-59) U/L ALT 75 H (4-49) U/L Total Protein 5.2 L (6.3-8.2) g/dL Albumin 2.6 L (3.5-5.0) g/dL Assessment and Plan Assessment: Impression: Small bowel obstruction/ileus with secondary abdominal pain and distention, and clinically improved and NG tube was removed on 12/18/2023 General Surgery is on the case Acute kidney injury, recovered Acute hyperkalemia secondary to above, improving Moderately severe aortic stenosis Acute hypoxic respiratory failure, currently on 2 L of oxygen by nasal cannula. The patient has consolidation in the lung bases and bilateral pleural effusion left more than right. On diuretics he is also on antibiotics Hypotension, likely hypovolemic in nature in addition to presence of a moderately severe aortic stenosis which probably contributed to his significant drop in the blood pressure, recovered Recent hip fracture status post ORIF History of CVA maintained on Plavix with some residual left-sided weakness Hyperlipidemia Anemia of chronic disease Acute hyponatremia in the setting of obstructive uropathy and renal failure, improving Recommendation: Patient is presently an overflow in the ICU His diet has been advanced Patient is being considered for rehab placement Continue Zosyn Continue Lasix Follow-up chest x-ray to be done in the next 24 hours Patient is refusing to use BiPAP at night as he does seem to have witnessed obstructive sleep apnea syndrome Rehab placement is in progress Will continue to follow Time with Patient: Less than 30
[2023-12-23] MEDS: LACTULOSE 20 GM/30 ML CUP PO SCH (16:22)
--- NOTE | 2023-12-23 16:48 | P.PN ---
Subjective History of Present Illness: The patient is a 77-year-old male who presented with progressive fatigue abdominal pain was found to have ileus, hyponatremia and acute renal injury cardiology consultation was requested because of atrial fibrillation. The patient was in the hospital earlier this month after a fall and a fractured hip, underwent surgery. His echocardiogram preoperatively showed a preserved systolic function with moderate aortic stenosis and a mean gradient of 21 mmHg. He continues to be on vasopressor but at a lower dose. He went in atrial fibrillation earlier this morning with controlled ventricular response, asymptomatic. He has an underlying right bundle branch block and no prior atrial fibrillation during his hospitalization. He has no significant peripheral edema. His urine output has been good. He continues to have an NG tube but he is having flatus and has underwent further evaluation with abdominal x-ray today. Patient has a prior history of stroke and was on Plavix in the past. He had significant hypotension on presentation and received intravenous fluid December 17: The patient is feeling well, he continues to be in atrial fibrillation with controlled ventricle response with episodes with a heart rate up to the 1 teens. He continues to be on IV heparin. He is off norepinephrine and his vasopressin is being weaned. He had a CT scan of the chest that showed consolidation and possible pneumonia. He is passing flatus and tolerating oral intake. His urinary output is good. December 18: The patient is back in sinus mechanism this morning with sinus bradycardia. He is feeling well overall, denies any chest discomfort, dizziness or palpitations. He is off vasopressors. He has no nausea or vomiting. His chest x-ray is suggestive of pneumonia and pleural effusion. Medications: Aspirin 81 mg daily, IV heparin, nicotine patch, metoprolol to tartrate 12.5 mg twice a day, Lipitor 40 mg daily 12/19 patient seen and examined. Patient denies any chest pain or shortness breath. Has not had a bowel movement per nursing. Heart rates in the 50s to 60s in sinus rhythm however drops down into the 40s at time with decrease in blood pressure is well. He is not actually symptomatic during these episodes. His metoprolol however was decreased however still having episodes and temporarily needed to go back on vasopressors. Hemoglobin borderline at 7.8.no hematochezia or melena and tolerating eliquis. 12/20 patient seen and examined. Patient denies any chest pain or pressure. He has been diuresis and states his shortness breath is improving. He is having sinus bradycardic episodes [place] of heart rates in the 30s which are temporary all during the sleeping hours. Per nursing monitoring his sleeping there is high suspicion of sleep apnea. He denies any history of syncope or lightheadedness. He is not on any rate control medications and his TSH was noted to be normal this admission. 12/21 He wore BiPAP overnight without any further significant bradycardic episodes. Therefore bradycardic episodes appear more related to sleep apnea. He did have recurrent episode of short A. fib for a few minutes which was asymptomatic with heart rates up to the 150s and 160s. Came back down to normal sinus rhythm. Denies any chest pain or pressure currently. 12/22 Patient seen and examined. Patient denies any chest pain or pressure. Continues to be diuresis with normal creatinine. Remains in sinus rhythm. We attempted flecainide however patient having recurrent episodes of A. fib and therefore switched to amiodarone and has remained in sinus rhythm. We will transition to oral amiodarone. Physical Examination: Neck: Good carotid upstroke, no bruit, no jugular venous distention. Lungs: Decreased breath sounds at the bases Heart: Irregular rate and rhythm, S1-S2, no S3, no rub. Systolic ejection murmur. Abdomen: Soft nontender, positive bowel sounds no organomegaly. Extremities: +1 edema, more on the right side, intact distal pulses. Impression: 1. Small bowel obstruction, resolved 2. Atrial fibrillation, new onset, paroxysmal, back in sinus mechanism 3. Acute renal injury, resolved 4. Anemia 5. History of stroke 6. Moderate aortic stenosis 7. asymptomatic sinus bradycardia likely exacerbated by suspected sleep apnea and increased vagal tone while sleeping Plan: Patient was not tolerating flecainide well with continued A. fib episodes and therefore continue amiodarone at this time. Transition from IV to oral amiodarone. Continue with IV diuresis at this time. Objective - Vital Signs Vital signs: Vital Signs Temp 98.1 F 12/23/23 15:27 Pulse 64 12/23/23 15:49 Resp 18 12/23/23 15:27 BP 103/63 12/23/23 15:27 Pulse Ox 95 12/23/23 15:27 FiO2 28 12/23/23 04:00 Intake & Output 10/05/1512/23/23 12/23/23 18:59 06:59 18:59 Intake Total 190 30 340 Output Total 2600 1100 1550 Balance -2410 -1070 -1210 Weight 94.1 kg Intake: IV 190 30 90 Piperacillin-Tazobactam 3 100 .375 gm In Sodium Chloride 0.9% 100 ml @ 25 mls/hr IVPB Q8H [facility] Rx#: [id number] Sodium Chloride 0.45% 1, 90 30 90 000 ml @ 10 mls/hr IV . Q24H [facility] Rx#:[id number] Intake, IV Titration 250 Amount Amiodarone 450 mg In 250 Dextrose 5% in Water 250 ml @ 0.5 MG/MIN 16.667 mls/hr IV .Q15H [facility] Rx#: [id number] Output: Urine 2600 1100 1550 Other: Voiding Method Indwelling Catheter Indwelling Catheter Indwelling Catheter ABP, PAP, CO, CI - Last Documented Arterial Blood Pressure 104/33 - Labs CBC & Chem 7: 12/23/23 05:47 12/23/23 05:47 Labs: Abnormal Lab Results - Last 24 Hours (Table) 12/22/23 12/23/23 12/23/23 Range/Units 20:46 05:47 05:47 RBC 2.80 L (4.30-5.90) m/uL Hgb 8.7 L (13.0-17.5) gm/dL Hct 26.9 L (39.0-53.0) % Potassium 3.3 L (3.5-5.1) mmol/L Chloride 94 L (98-107) mmol/L Carbon Dioxide 38 H (22-30) mmol/L Glucose 107 H (74-99) mg/dL Calcium 8.0 L (8.4-10.2) mg/dL AST 84 H (17-59) U/L ALT 75 H (4-49) U/L Total Protein 5.2 L (6.3-8.2) g/dL Albumin 2.6 L (3.5-5.0) g/dL
[2023-12-23] MEDS: AMIODARONE 200 MG TAB PO SCH (20:45)
[2023-12-24 07:10] LABS: Basophils % (A) 0 %; Eosinophils # (A) 0.3 k/uL (0-0.7); Eosinophils % (A) 4 %; HCT 28.3 % (39.0-53.0); HGB 8.8 gm/dL (13.0-17.5); Hypochromasia Moderate; Lymphocytes % (A) 14 %; MCH 30.6 pg (25.0-35.0); MCV 98.7 fL (80.0-100.0); Macrocytosis Slight; Mean Platelet Volume 6.7; Monocytes # (A) 0.4 k/uL (0-1.0); Monocytes % (A) 6 %; Neutrophils # (A) 5.6 k/uL (1.3-7.7); Neutrophils % (A) 75 %; Platelet Count 343 k/uL (150-450); RBC 2.87 m/uL (4.30-5.90); RDW 14.5 % (11.5-15.5); WBC 7.5 k/uL (3.8-10.6)
[2023-12-24 07:25] LABS: ALT 69 U/L (4-49); AST 55 U/L (17-59); African American GFR (CKD) >90 (>60 ml/min/1.73 sqM); Albumin 2.7 g/dL (3.5-5.0); Alkaline Phosphatase 89 U/L (38-126); Anion Gap 1 mmol/L; Blood Urea Nitrogen 16 mg/dL (9-20); Calcium 8.4 mg/dL (8.4-10.2); Chloride 96 mmol/L (98-107); Glucose 90 mg/dL (74-99); Non-African American GFR(CKD) 83 (>60 ml/min/1.73 sqM); Potassium 4.4 mmol/L (3.5-5.1); Sodium 137 mmol/L (137-145); Total Bilirubin 0.4 mg/dL (0.2-1.3); Total Protein 5.5 g/dL (6.3-8.2)
[2023-12-24 07:34] LABS: Carbon Dioxide 36 mmol/L (22-30)
[2023-12-24] MEDS: FUROSEMIDE 10 MG/ML 4 ML VIAL IV SCH (08:04)
--- NOTE | 2023-12-24 08:23 | P.PN ---
Subjective Progress Note Date: 12/24/23 Chevy French, is a 77-year-old male who presented to [facility] emergency room due to abdominal pain and generalized weakness and hypotension. Patient was recently admitted to [facility] after sustaining a fall and having femur fracture he underwent surgery and was transferred to residential for rehab. He was evaluated in the emergency room vital examination on presentation revealed a temperature of 98.7 pulse 80 respiration 30 blood pressure 80/53 pulse ox 97% on 5 L nasal cannula Laboratory data revealed a white blood count of 14.5 hemoglobin 10.1 platelet count 511 sodium 122 potassium 6.0 chloride 79 BUN 83 creatinine 4.23 Testing in the emergency room revealed chest x-ray revealed low lung volumes with generalized hazy appearance which could represent atelectasis versus pulmonary edema, CT scan of the abdomen revealed dilated small bowel loops and stomach without clear focal transition point, and significantly distended urinary bladder with bilateral hydronephrosis. Patient was admitted to medical floor for further evaluation and treatment On 12/16/2023 patient was seen and examined in the ICU, he is alert and oriented in no distress, he is maintained on blood pressure support, triple lumen and arterial line inserted, patient is followed by critical care, he denies any chest pain, or shortness of breath, munoz catheter inserted yesterday, kidney function improving. On 12/17/2023 patient is alert and oriented. Patient remains in the ICU pressure supporting medication. Creatinine improving to 1.28 bun 38 potassium 4.8 sodium 135.current vital signs temp 98.1, heart rate 60, respiratory rate 20, blood pressure 1 today knee 6/41 with pulse ox of96% on 4 L. Patient remains with NG tube nothing by mouth. On 12/18/2023 patient was seen and examined in the ICU he is alert and oriented x 3 in no apparent distress, there is no fever or chills no headache or dizziness no chest pain no shortness of breath no cough no nausea or vomiting no abdominal pain no diarrhea no blood in the stools, patient is passing gas and having bowel movements, no burning with urination no frequency or urgency and no hematuria. Yesterday patient developed atrial fibrillation with rapid ventricular response, he was seen by cardiology and was started on IV heparin. On 12/19/2023 patient was seen and examined in the ICU, he is alert and oriented x 3 in no distress, there is no fever or chills no headache or dizziness no chest pain no shortness of breath no cough no nausea or vomiting no abdominal pain no diarrhea and no urinary symptoms. Patient still has Munoz catheter in. CT scan of the chest done yesterday revealed bilateral consolidative opacities and pleural effusion left greater than right. Patient is maintained on IV Zosyn, he is also maintained on IV heparin for new onset atrial fibrillation, pulmonary and cardiology are following. On 12/20/2023 patient was seen and examined in the ICU he is alert and oriented x 3 in no apparent distress there is no fever or chills no headache or dizziness no chest pain, he is still complaining of cough and shortness of breath with any activity there is no nausea or vomiting no abdominal pain no diarrhea no blood in the stools, Munoz catheter is still in. Vital exam reveals a temperature of 97.7 pulse 57 respiration 13 blood pressure 117/59 pulse ox 98% on 3 L nasal cannula. White blood count 4.9 hemoglobin 7.8 platelet count 328 BUN 14 creatinine 0.74 On 12/21/2023 patient remains in the intensive care unit patient is alert and oriented x 3. Current vital signs temp 97.5, heart 75, respiratory rate 18, blood pressure 133/68 with a pulse ox of 99% on 2 L. White blood cell 4.5, hemoglobin 7.5, creatinine 0.64 and bun 12. Patient remains short of breath wit h cough. Patient denies any nausea vomiting or diarrhea. Patient denies any urinary burning or frequency On 12/22/2023 patient is alert and oriented x 3 currently sitting up in chair. Patient maintained on full liquid diet. Patient having episodes of A-fib with RVR has been started on amiodarone per cardiology. Patient remains on IV Zosyn. Current vital signs temp 98.4, heart rate 122, respiratory rate 26, blood pressure 115/73 with pulse ox 100% on 3 L nasal cannula. Patient denies chest pain or shortness of breath. Patient denies nausea vomiting or diarrhea. Patient denies any urinary burning or frequency On 12/23/2023 patient was seen and examined in the ICU, he is alert and oriented x 3 in no distress, there is no fever or chills no headache or dizziness no chest pain no shortness of breath no cough no nausea or vomiting no abdominal pain no diarrhea and no urinary symptoms. Patient still has Munoz catheter in. CT scan of the chest done yesterday revealed bilateral consolidative opacities and pleural effusion left greater than right. Patient is still maintained on IV Zosyn, he is also maintained on Eliquis for new onset atrial fibrillation, pulmonary and cardiology are following. On 12/24/2023 patient has been transferred out of the ICU to [facility]. Patient is alert and oriented x 3. Patient was started on p.o. amiodarone. Patient also started on IV Lasix per cardiology. Patient remains on IV Zosyn. Current vital signs temp 97.8, heart rate 64, respiratory rate 17, blood pressure 107/66 with a pulse ox of 100% on 2 L. Patient denies chest pain or shortness of breath. Patient denies nausea vomiting or diarrhea. Patient denies any urinary burning or frequency Objective - Vital Signs Vital signs: Vital Signs Temp 97.8 F 12/24/23 07:55 Pulse 57 L 12/24/23 07:56 Resp 17 12/24/23 07:56 BP 107/66 12/24/23 07:55 Pulse Ox 100 12/24/23 07:55 FiO2 28 12/23/23 04:00 Intake & Output 12/23/23 12/24/23 12/24/23 18:59 06:59 18:59 Intake Total 340 20 10 Output Total 2200 2225 Balance -1860 -2205 10 Weight 91 kg Intake: IV 90 20 10 Invasive Line 1 20 10 Sodium Chloride 0.45% 1, 90 000 ml @ 10 mls/hr IV . Q24H [facility] Rx#:[id number] Intake, IV Titration 250 Amount Amiodarone 450 mg In 250 Dextrose 5% in Water 250 ml @ 0.5 MG/MIN 16.667 mls/hr IV .Q15H [facility] Rx#: [id number] Output: Urine 2200 2225 Uretheral (Munoz) 1025 Other: Voiding Method Indwelling Catheter Indwelling Catheter Indwelling Catheter # Bowel Movements 1 ABP, PAP, CO, CI - Last Documented Arterial Blood Pressure 104/33 - Exam In general patient is alert and oriented x 3 in no distress HEENT head normocephalic and atraumatic Neck is supple no JVD no goiter no lymphadenopathy no carotid bruit Chest examination is clear to auscultation no crackles no wheezing Cardiac exam reveals regular heart sounds S1 and S2 no gallops no murmurs Abdomen is soft with mild diffuse tenderness no organomegaly no palpable masses with sluggish bowel sounds Extremity exam reveals no edema no cyanosis or clubbing Neurological examination reveals no gross focal deficits - Labs CBC & Chem 7: 12/24/23 06:24 12/24/23 06:24 Labs: Abnormal Lab Results - Last 24 Hours (Table) 12/24/23 12/24/23 Range/Units 06:24 06:24 RBC 2.87 L (4.30-5.90) m/uL Hgb 8.8 L (13.0-17.5) gm/dL Hct 28.3 L (39.0-53.0) % Chloride 96 L (98-107) mmol/L Carbon Dioxide 36 H (22-30) mmol/L ALT 69 H (4-49) U/L Total Protein 5.5 L (6.3-8.2) g/dL Albumin 2.7 L (3.5-5.0) g/dL Assessment and Plan Plan: Abdominal pain Dilated small bowels with possible ileus versus partial small bowel obstruction Urinary retention Hypotension Severe hyponatremia Acute kidney injury Electrolyte imbalance with severe hyperkalemia Leukocytosis Recent fall with right femur fracture with surgical repair New onset atrial fibrillation with rapid ventricular response during this admission At this time patient is admitted to medical floor Munoz catheter was inserted in the emergency room He was started on IV fluid Nephrology and urology consultation were requested For DVT prophylaxis subcu Lovenox Will follow closely
--- NOTE | 2023-12-24 10:28 | P.PN ---
Subjective HISTORY OF PRESENT ILLNESS: The patient is a 77-year-old male who presented with progressive fatigue abdominal pain was found to have ileus, hyponatremia and acute renal injury cardiology consultation was requested because of atrial fibrillation. The patient was in the hospital earlier this month after a fall and a fractured hip, underwent surgery. His echocardiogram preoperatively showed a preserved systolic function with moderate aortic stenosis and a mean gradient of 21 mmHg. He continues to be on vasopressor but at a lower dose. He went in atrial fibrillation earlier this morning with controlled ventricular response, asymptomatic. He has an underlying right bundle branch block and no prior atrial fibrillation during his hospitalization. He has no significant peripheral edema. His urine output has been good. He continues to have an NG tube but he is having flatus and has underwent further evaluation with abdominal x-ray today. Patient has a prior history of stroke and was on Plavix in the past. He had significant hypotension on presentation and received intravenous fluid December 17: The patient is feeling well, he continues to be in atrial fibrillation with controlled ventricle response with episodes with a heart rate up to the 1 teens. He continues to be on IV heparin. He is off norepinephrine and his vasopressin is being weaned. He had a CT scan of the chest that showed consolidation and possible pneumonia. He is passing flatus and tolerating oral intake. His urinary output is good. December 18: The patient is back in sinus mechanism this morning with sinus bradycardia. He is feeling well overall, denies any chest discomfort, dizziness or palpitations. He is off vasopressors. He has no nausea or vomiting. His chest x-ray is suggestive of pneumonia and pleural effusion. Medications: Aspirin 81 mg daily, IV heparin, nicotine patch, metoprolol to tartrate 12.5 mg twice a day, Lipitor 40 mg daily 12/19 patient seen and examined. Patient denies any chest pain or shortness breath. Has not had a bowel movement per nursing. Heart rates in the 50s to 60s in sinus rhythm however drops down into the 40s at time with decrease in blood pressure is well. He is not actually symptomatic during these episodes. His metoprolol however was decreased however still having episodes and temporarily needed to go back on vasopressors. Hemoglobin borderline at 7.8.no hematochezia or melena and tolerating eliquis. 12/20 patient seen and examined. Patient denies any chest pain or pressure. He has been diuresis and states his shortness breath is improving. He is having sinus bradycardic episodes [place] of heart rates in the 30s which are temporary all during the sleeping hours. Per nursing monitoring his sleeping there is high suspicion of sleep apnea. He denies any history of syncope or lightheadedness. He is not on any rate control medications and his TSH was noted to be normal this admission. 12/21 He wore BiPAP overnight without any further significant bradycardic episodes. Therefore bradycardic episodes appear more related to sleep apnea. He did have recurrent episode of short A. fib for a few minutes which was asymptomatic with heart rates up to the 150s and 160s. Came back down to normal sinus rhythm. Denies any chest pain or pressure currently. 12/22 Patient seen and examined. Patient denies any chest pain or pressure. Continues to be diuresis with normal creatinine. Remains in sinus rhythm. We attempted flecainide however patient having recurrent episodes of A. fib and therefore switched to amiodarone and has remained in sinus rhythm. We will dillard sition to oral amiodarone. 12/24/2023 Patient examined this morning at the bedside. Patient currently denies chest pain or pressure. He denies shortness of breath. He denies dizziness or lightheadedness. He is tolerating oral intake without nausea or vomiting. Telemetry reveals sinus mechanism with a heart rate in the 50s this morning. PHYSICAL EXAM: VITAL SIGNS: Reviewed. GENERAL: Well-developed in no acute distress. NECK: Supple. No JVD or thyromegaly LUNGS: Respirations even and unlabored. Lungs essentially clear to auscultation bilaterally. HEART: Regular rate and rhythm. S1 and S2 heard. Systolic murmur EXTREMITIES: Normal range of motion. No clubbing or cyanosis. Peripheral pulses intact. Bilateral lower extremity edema ASSESSMENT: 1. Small bowel obstruction, resolved 2. Atrial fibrillation, new onset, paroxysmal, back in sinus mechanism 3. Acute renal injury, resolved 4. Anemia 5. History of stroke 6. Moderate aortic stenosis 7. asymptomatic sinus bradycardia likely exacerbated by suspected sleep apnea and increased vagal tone while sleeping PLAN: Continue current dose of oral amiodarone. Decrease to 200 mg twice a day after 1 week. Continue anticoagulation with Eliquis Continue metoprolol 12.5 mg daily Decrease IV Lasix to 40 mg daily. Likely transition to oral diuretics tomorrow Continue telemetry monitoring Further recommendations pending patient course Nurse practitioner note has been reviewed by physician. Signing provider agrees with the documented findings, assessment, and plan of care documented by SHEETFED PRESS OPERATOR as a scribe. Objective - Vital Signs Vital signs: Vital Signs Temp 97.8 F 12/24/23 07:55 Pulse 57 L 12/24/23 07:56 Resp 17 12/24/23 07:56 BP 107/66 12/24/23 07:55 Pulse Ox 100 12/24/23 07:55 FiO2 28 12/23/23 04:00 Intake & Output 12/23/23 12/24/23 12/24/23 18:59 06:59 18:59 Intake Total 340 20 10 Output Total 2200 2225 850 Balance -1860 -2205 -840 Weight 91 kg Intake: IV 90 20 10 Invasive Line 1 20 10 Sodium Chloride 0.45% 1, 90 000 ml @ 10 mls/hr IV . Q24H [facility] Rx#:[id number] Intake, IV Titration 250 Amount Amiodarone 450 mg In 250 Dextrose 5% in Water 250 ml @ 0.5 MG/MIN 16.667 mls/hr IV .Q15H [facility] Rx#: [id number] Output: Urine 2200 2225 850 Uretheral (Rich) 1025 Other: Voiding Method Indwelling Catheter Indwelling Catheter Indwelling Catheter # Bowel Movements 1 ABP, PAP, CO, CI - Last Documented Arterial Blood Pressure 104/33 - Labs CBC & Chem 7: 12/24/23 06:24 12/24/23 06:24 Labs: Abnormal Lab Results - Last 24 Hours (Table) 12/24/23 12/24/23 Range/Units 06:24 06:24 RBC 2.87 L (4.30-5.90) m/uL Hgb 8.8 L (13.0-17.5) gm/dL Hct 28.3 L (39.0-53.0) % Chloride 96 L (98-107) mmol/L Carbon Dioxide 36 H (22-30) mmol/L ALT 69 H (4-49) U/L Total Protein 5.5 L (6.3-8.2) g/dL Albumin 2.7 L (3.5-5.0) g/dL
--- NOTE | 2023-12-24 10:58 | P.PN ---
Subjective Progress Note Date: 12/24/23 CHIEF COMPLAINT: Abdominal pain HISTORY OF PRESENT ILLNESS: Patient currently on the cardiac floor. He has had 2 bowel movements since starting the lactulose. He denies any abdominal pain. Denies any nausea or vomiting. Abdomen is softer. WBC 7.5 Hgb 8.8 platelets 343 potassium 4.4 PHYSICAL EXAM: VITAL SIGNS: Reviewed GENERAL: no acute distress HEENT: No sclera icterus. Extraocular movements grossly intact. Moist buccal mucosa. Head is atraumatic, normocephalic. Hears conversational speech. No nasal drainage. NECK: Supple without lymphadenopathy. CHEST: Non-labored respirations and equal bilateral excursions. CARDIOVASCULAR: Palpable 2+ radial pulses. ABDOMEN: Softer. less distended. Nontender MUSCULOSKELETAL: No clubbing or cyanosis. NEUROLOGIC: No focal or lateralizing signs. Cranial nerves II through XII grossly intact. SKIN: Well perfused. Good skin turgor. ASSESSMENT: 1. Ileus improving 2. Urinary retention and bilateral hydronephrosis status post Rich catheter placement 3. Acute kidney injury improved 4. Hyponatremia improved 5. Hypokalemia improved 6. History of CVAs 7. Recent hip fracture status postsurgical repair 8. Moderate to severe aortic stenosis PLAN: -Advance diet to regular -Continue lactulose and Colace -Increase activity level Physician Grease Refiner Operator note has been reviewed by physician. Signing provider agrees with the documented findings, assessment, and plan of care. Objective - Vital Signs Vital signs: Vital Signs Temp 97.8 F 12/24/23 07:55 Pulse 57 L 12/24/23 07:56 Resp 17 12/24/23 07:56 BP 107/66 12/24/23 07:55 Pulse Ox 100 12/24/23 07:55 FiO2 28 12/23/23 04:00 Intake & Output 12/23/23 12/24/23 12/24/23 18:59 06:59 18:59 Intake Total 340 20 10 Output Total 2200 2225 850 Balance -1860 -2205 -840 Weight 91 kg Intake: IV 90 20 10 Invasive Line 1 20 10 Sodium Chloride 0.45% 1, 90 000 ml @ 10 mls/hr IV . Q24H [facility] Rx#:[id number] Intake, IV Titration 250 Amount Amiodarone 450 mg In 250 Dextrose 5% in Water 250 ml @ 0.5 MG/MIN 16.667 mls/hr IV .Q15H [facility] Rx#: [id number] Output: Urine 2200 2225 850 Uretheral (Rich) 1025 Other: Voiding Method Indwelling Catheter Indwelling Catheter Indwelling Catheter # Bowel Movements 1 ABP, PAP, CO, CI - Last Documented Arterial Blood Pressure 104/33 - Labs CBC & Chem 7: 12/24/23 06:24 12/24/23 06:24 Labs: Abnormal Lab Results - Last 24 Hours (Table) 12/24/23 12/24/23 Range/Units 06:24 06:24 RBC 2.87 L (4.30-5.90) m/uL Hgb 8.8 L (13.0-17.5) gm/dL Hct 28.3 L (39.0-53.0) % Chloride 96 L (98-107) mmol/L Carbon Dioxide 36 H (22-30) mmol/L ALT 69 H (4-49) U/L Total Protein 5.5 L (6.3-8.2) g/dL Albumin 2.7 L (3.5-5.0) g/dL
--- NOTE | 2023-12-24 14:08 | XR ---
EXAMINATION TYPE: XR chest 1V portable DATE OF EXAM: 12/24/2023 2:03 PM COMPARISON: Chest radiographs from 12/21/2023 TECHNIQUE: XR chest 1V portable Portable AP radiograph of the chest. CLINICAL INDICATION:Male, 78 years old with history of Pneumonia; FINDINGS: Lungs/Pleura: No pneumothorax. Blunting of both costophrenic angles. Bibasilar patchy consolidative o pacities. Seems slightly improved from prior exam. Pulmonary vascularity: Unremarkable. Heart/mediastinum: Cardiomediastinal silhouette is enlarged and stable. Musculoskeletal: No acute osseous pathology. IMPRESSION: Small to moderate sized bilateral pleural effusions are redemonstrated. Slightly decreased patchy con solidative opacities from prior examination. [facility], , 12/24/2023 2:05 PM
--- NOTE | 2023-12-24 14:35 | P.PN ---
Subjective Progress Note Date: 12/24/23 Principal diagnosis: Acute small bowel obstruction 77-year-old male patient, presented to the hospital because of abdominal pain, nausea, emesis, abdominal distention along with weakness, and hypotension. He also noted diminished urine output. His last bowel movement was more than 2 days ago. He is not passing any flatus. He was not treated secondary for rehabilitation following a fall with a fracture requiring surgery. In the emergency, the patient was found to have an acute on top of chronic kidney injury. Rich catheter was inserted and the patient immediately produced around 1 L of urine output. Patient was also given an NG tube and a total of 2.5 L of gastric material was aspirated immediately. CAT scan of the abdomen and pelvis was done in the emergency and the patient was found to have fluid-filled esophagus with dilated gas and fluid-filled stomach. Patient also had dilated small bowel with air fluid levels. The distal small bowel appeared collapsed and there was no clear focal transition identified. No focal bowel wall thickening or inflammatory changes. The small bowel measures up to 4.3 cm in size. Gas and stool was present in the large bowel. Appendix was normal. No evidence of interval pneumoperitoneum. Small bilateral pleural effusions along with compressive atelectasis in the lung bases were noted. Blood work showed an acute on top of chronic kidney injury. The patient's creatinine was up to 4.23 with a BUN of 83 and his sodium was 122 with a potassium level of 6 and a chloride was 79 with a bicarb level of 32. Normal LFTs. proBNP level is 468. Amylase and lipase are within normal limits. The white cell count of 14.5 with a hemoglobin 10.1 and a platelet of 511. Coagulation profile is within normal limits. Chest x-ray showed cardiomegaly with mild pulm vascular congestion. For now, the patient is being resuscitated with IV fluids. He is on normal saline at rate of 100 cc an hour. He is also on norepinephrine which is running at 0.15 mcg/kg/min. He is on oxygen at 3 L/min nasal cannula. Triple-lumen catheter was established and the intensive care unit along with an arterial line. General surgery is on the case. Nephrology is also on the case. 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 He is an ex-smoker. 12/16/2023, the patient is being seen for a follow-up. The patient is much more awake compared to yesterday. Noted the patient was aggressive resuscitative IV fluids and over the past 24 hours, the patient received a total of 6 L of IV flu ids. Currently on normal saline at rate of 100 cc an hour. The patient required high doses of pressors overnight and norepinephrine was as high as 0.5 mcg/kg/min. Vasopressin was added and currently norepinephrine is down to 0.32 mcg/kg/min. He is much more awake and alert and is communicating. He is on 3 L of O2 nasal cannula. NG tube is still in place and the total amount of output is given in the order of 3.6 L since the tube was placed. Urine output is improving and the patient is producing around 100 cc an hour. No fever. No chills. White cell count 11.7 with hemoglobin 8.8 and a platelet count of 578. Sodium is at 130, BUN 63 with a creatinine of 2.7. The potassium levels of 5.4 and a serum bicarb is at 20. CPK is 1024. Axes are normal. Serum cortisol was 16.9. proBNP level was 1360. Lactic acid level was ordered and results are still pending for now. Troponins at 0.034. His previous echocardiogram showed moderate aortic stenosis and preserved LV function. He is currently on O2 at 3 L. Chest x-ray shows a triple-lumen catheter in the left subclavian. At the same time, the patient has increased pulm vascular markings and some early infiltration of the left perihilar area. On 12/17/2023, the patient is being seen for a follow-up. The patient is, comfortable on 5 L of oxygen by nasal cannula. Continues to have a congested cough. NG tube is in place and output is minimal. Hemodynamically, is improved and the patient is still on norepinephrine running at 0.16 mcg/kg/min and the patient is also physiologic dose of vasopressin. The patient is on half-normal saline at rate of 130 cc an hour. Overall fluid balance is +1.9 L over the past 24 hours. Blood pressures improved and the patient's urine output is excellent for now. Meanwhile, he is afebrile. Hemodynamically he is improving and the blood pressure has essentially improved. We should be able to wean down the pressors. Meanwhile, the patient chest x-ray showing cardiomegaly and the patient has worsening left lower lobe pulmonary filtrate. This could be atelectasis versus pneumonia. NG tube is in a good location. There is background cardiomegaly. The patient remains on IV Zosyn as a broad-spectrum antibiotic coverage for now. The patient is also on Lovenox 40 mg subcu for DVT prophylaxis. The white cell count is 7.6 with a hemoglobin of 7.6 and a platelet count of 398. BUN 38 with a creatinine of 1.2 and a sodium levels at 135 and potassium levels of 4.5. LFTs are essentially within normal limits. Bowel sounds are more active on today's evaluation. The patient remains n.p.o. for now. No other significant events overnight. 12/18/2023, I am seeing the patient for a follow-up. The patient is doing well. He is passing flatus. Had a bowel movement yesterday. Output from the G-tube is minimal. Based on that, I ended up removing the NG tube today. I noted some progressive worsening his oxygenation. Earlier this morning, the patient was placed on O2 at 15 L. The chest x-ray shows worsening in bilateral pulmonary filtrates. Based on that, I ordered a CAT scan of the chest to evaluate the patient's pulmonary findings and the CAT scan was completed this morning and it shows evidence of bilateral consolidation and opacities noted bilateral pleural effusion left more than right. Underlying pneumonia cannot be completely excluded. The patient's renal function has essentially normalized. The white cell count of 6.3 with a hemoglobin 7.6 and a platelet count of 366. The sodium is at 141, bicarb is at 27, BUN 22 with a creatinine of 0.9. LFTs are normal. The patient is awake and alert. He remains in atrial fibrillation. He was found to be slightly more tachycardic on today's evaluation. He remains on IV heparin for now. Antibiotic coverage is with IV Zosyn. On today's evaluation of 12/19/2023, the patient is being seen for a follow-up. Patient is currently on 3 days of oxygen by nasal cannula. Taking clear liquid diet. He is on half-normal saline which is running at 75 cc an hour. No nausea. No vomiting. Abdominal pain. No chest pain. He has been started on IV heparin regarding episode of atrial fibrillation. He is also on metoprolol 25 mg twice a day. His blood work shows a WBC count of 5.2 with a hemoglobin 7.8 and platelet count of 348. Sodium is at 138 with a potassium level of 4.3, bicarb is at 31, BUN is 18 with a creatinine of 0.7. LFTs are within normal limits. Awake and alert and communicating. No other significant events overnight. Patient evaluated today on 12/20/23, remains in the ICU, his nasogastric tube was discontinued by surgery, patient seems to be comfortable, not in distress, intermittently noted to have bradycardia and drop in his blood pressure, being addressed by cardiology. Patient denies being short of breath denies abdominal pain although his abdomen seems to be distended and no bowel sounds noted. Patient remains on Zosyn, his last bowel movement was 12/16. WBC count is 4.9 hemoglobin 7.8 electrolytes are normal renal profile is normal, his metoprolol was decreased by cardiology, because of his intermittent episodes of bradycardia and hypotension Patient was evaluated today 12/21/2023, remains in the ICU, tolerating liquid diet well, still had no bowel movement since the . Patient had a presentation of the ileus, urinary retention and bilateral hydronephrosis, acute kidney injury, hyponatremia, and history of CVA on Plavix, also had a history of recent hip fracture. And in addition to this he has moderate to severe aortic stenosis. Today the patient seems to be comfortable, not in any distress, on 2 L nasal cannula, hemoglobin is 7.5, otherwise the labs were unremarkable. Patient remains on Zosyn empirically, he does have abnormal chest x-ray showing bilateral airspace disease. Patient had another episode last night of bradycardia and according to the nurse he may have had an episode of obstructive sleep apnea associated with bradycardia. Hence I am recommending BiPAP tonight at 02/24/28%.WBC count is 4.5 hemoglobin 7.5 electrolytes are normal renal profile is normal Patient was seen today on 12/22/2023, remains in the ICU, remains on nasal cannula does not seem to be in distress he is on 3 L nasal cannula patient did not tolerate BiPAP well last night, and he kept removing it. Patient is on Eliquis is also on Zosyn, and the plan is to send the patient to 3 [address]. once a bed becomes available. Patient was seen by cardiology, addressing his arrhythmia and his blood pressure. Pulmonary vinson patient remains on diuretics, and he remains also on antibiotics. Improving, does not seem to be in any distress todayPatient even had a bowel movement today. WBC count is 5.8 hemoglobin 8.2 electrolytes are normal potassium is a bit low at 3.3 BUN is 9 creatinine 0.78. Patient was evaluated today on 12/23/2023, patient remains in the ICU as an overflow. He is on 2 L nasal cannula, patient is doing great, patient has been offered BiPAP for his obstructive sleep apnea but refuses to use it. He is being considered for possible transfer to rehab, and I will clear the patient if he is cleared by cardiology. In the meantime we will try to get the patient out of the ICU he has no GI issues, he is having bowel movements without any di fficulty. His abdomen is soft. Denies any shortness of breath or cough or wheezing. WBC count is 8.3 hemoglobin 8.7 basic metabolic profile is normal and renal profile is normal bicarb is 38. Patient was evaluated today on 12/24/2023, patient is doing great, feeling much better, patient is having normal bowel movements according to him, chest x-ray is showing improvement in his interstitial edema/pneumonia. Patient remains on diuretics he also remains on antibiotics. Findings on the chest x-ray are consistent with improving pneumonia/pulmonary edema. But not back to baseline. Continues to have abdominal distention findings based on the chest x-ray itself.WBC count 7.5 hemoglobin 8.8 electrolytes are normal renal profile is normal. Transfer tech Objective - Vital Signs Vital signs: Vital Signs Temp 97.8 F 12/24/23 11:09 Pulse 66 12/24/23 11:29 Resp 17 12/24/23 11:09 BP 97/64 12/24/23 11:09 Pulse Ox 100 12/24/23 11:09 FiO2 28 12/23/23 04:00 Intake & Output 12/23/23 12/24/23 12/24/23 18:59 06:59 18:59 Intake Total 340 20 10 Output Total 2200 2225 850 Balance -1860 -2203 -840 Weight 91 kg 91 kg Intake: IV 90 20 10 Invasive Line 1 20 10 Sodium Chloride 0.45% 1, 90 000 ml @ 10 mls/hr IV . Q24H [facility] Rx#:[id number] Intake, IV Titration 250 Amount Amiodarone 450 mg In 250 Dextrose 5% in Water 250 ml @ 0.5 MG/MIN 16.667 mls/hr IV .Q15H [facility] Rx#: [id number] Output: Urine 2200 2225 850 Uretheral (Rich) 1025 Other: Voiding Method Indwelling Catheter Indwelling Catheter Indwelling Catheter # Bowel Movements 1 1 ABP, PAP, CO, CI - Last Documented Arterial Blood Pressure 104/33 - Exam General: Revealed 77-year-old white male in no distress.On 2L nasal cannula HEENT head normocephalic and atraumatic Neck is supple no JVD no goiter no lymphadenopathy no carotid bruit Chest examination: Diminished breath sound bilaterally no crackles rhonchi or wheezes Cardiac exam reveals regular heart sounds S1 and S2 no gallops 2/6 systolic murmur throughout the precordium Abdomen soft, nontender, no rebound no guarding, positive bowel sounds. Extremity exam reveals no edema no cyanosis or clubbing Neurological examination reveals no gross focal deficits Psychiatric: Normal mood affect and normal mental status examination. Skin: No rashes. - Labs CBC & Chem 7: 12/24/23 06:24 12/24/23 06:24 Labs: Abnormal Lab Results - Last 24 Hours (Table) 12/24/23 12/24/23 Range/Units 06:24 06:24 RBC 2.87 L (4.30-5.90) m/uL Hgb 8.8 L (13.0-17.5) gm/dL Hct 28.3 L (39.0-53.0) % Chloride 96 L (98-107) mmol/L Carbon Dioxide 36 H (22-30) mmol/L ALT 69 H (4-49) U/L Total Protein 5.5 L (6.3-8.2) g/dL Albumin 2.7 L (3.5-5.0) g/dL Assessment and Plan Assessment: Impression: Small bowel obstruction/ileus with secondary abdominal pain and distention, and clinically improved and NG tube was removed on 12/18/2023 General Surgery is on the case Acute kidney injury, recovered Acute hyperkalemia, resolved Moderately severe aortic stenosis Acute hypoxic respiratory failure, currently on 2 L of oxygen by nasal cannula. The patient has consolidation in the lung bases and bilateral pleural effusion left more than right. On diuretics he is also on antibiotics Hypotension, likely hypovolemic in nature in addition to presence of a moderately severe aortic stenosis which probably contributed to his significant drop in the blood pressure, recovered Recent hip fracture status post ORIF History of CVA maintained on Plavix with some residual left-sided weakness Hyperlipidemia Anemia of chronic disease Acute hyponatremia in the setting of obstructive uropathy and renal failure, improving Recommendation: Chest x-ray was reviewed, showing improvement but not resolution of abnormal findings and the findings are consistent with CHF and possibly superimposed pneumonia Continue Zosyn Continue Lasix Patient is refusing to use BiPAP at night as he does seem to have witnessed obstructive sleep apnea syndrome Rehab placement is in progress Will continue to follow Time with Patient: Less than 30
[2023-12-25 06:53] LABS: Basophils % (A) 0 %; Eosinophils # (A) 0.3 k/uL (0-0.7); Eosinophils % (A) 4 %; HCT 27.6 % (39.0-53.0); HGB 8.8 gm/dL (13.0-17.5); Hypochromasia Slight; Lymphocytes # (A) 0.9 k/uL (1.0-4.8); Lymphocytes % (A) 13 %; MCH 31.2 pg (25.0-35.0); MCHC 31.8 g/dL (31.0-37.0); MCV 98.1 fL (80.0-100.0); Macrocytosis Slight; Mean Platelet Volume 7.7; Monocytes # (A) 0.3 k/uL (0-1.0); Monocytes % (A) 5 %; Neutrophils # (A) 5.3 k/uL (1.3-7.7); Neutrophils % (A) 77 %; Platelet Count 315 k/uL (150-450); RBC 2.82 m/uL (4.30-5.90); RDW 14.9 % (11.5-15.5); WBC 6.9 k/uL (3.8-10.6)
[2023-12-25 07:28] LABS: ALT 54 U/L (4-49); AST 40 U/L (17-59); African American GFR (CKD) >90 (>60 ml/min/1.73 sqM); Albumin 2.7 g/dL (3.5-5.0); Alkaline Phosphatase 79 U/L (38-126); Anion Gap 0 mmol/L; Blood Urea Nitrogen 14 mg/dL (9-20); Calcium 8.3 mg/dL (8.4-10.2); Carbon Dioxide 39 mmol/L (22-30); Chloride 95 mmol/L (98-107); Glucose 88 mg/dL (74-99); Non-African American GFR(CKD) 79 (>60 ml/min/1.73 sqM); Potassium 4.5 mmol/L (3.5-5.1); Sodium 134 mmol/L (137-145); Total Bilirubin 0.4 mg/dL (0.2-1.3); Total Protein 5.3 g/dL (6.3-8.2)
--- NOTE | 2023-12-25 09:41 | P.PN ---
Subjective Progress Note Date: 12/25/23 Principal diagnosis: Ileus Patient doing well today. Denies abdominal pain. No nausea or vomiting. Says he had further bowel movements. Tolerating regular diet. States he is anxious to go home. Objective - Vital Signs Vital signs: Vital Signs Temp 97.6 F 12/25/23 08:59 Pulse 62 12/25/23 09:00 Resp 18 12/25/23 09:00 BP 112/63 12/25/23 08:59 Pulse Ox 100 12/25/23 08:59 FiO2 28 12/23/23 04:00 Intake & Output 12/24/23 12/25/23 12/25/23 18:59 06:59 18:59 Intake Total 20 40 10 Output Total 1525 300 Balance -1505 -260 10 Weight 91 kg Intake: IV 20 40 10 Invasive Line 1 20 20 Invasive Line 5 20 10 Output: Urine 1525 300 Other: Voiding Method Indwelling Catheter Indwelling Catheter Indwelling Catheter # Voids 0 # Bowel Movements 4 0 ABP, PAP, CO, CI - Last Documented Arterial Blood Pressure 104/33 - Exam Abdomen: Soft, mild distention, nontender - Labs CBC & Chem 7: 12/25/23 06:13 12/25/23 06:13 Labs: Abnormal Lab Results - Last 24 Hours (Table) 12/25/23 12/25/23 Range/Units 06:13 06:13 RBC 2.82 L (4.30-5.90) m/uL Hgb 8.8 L (13.0-17.5) gm/dL Hct 27.6 L (39.0-53.0) % Lymphocytes # 0.9 L (1.0-4.8) k/uL Sodium 134 L (137-145) mmol/L Chloride 95 L (98-107) mmol/L Carbon Dioxide 39 H (22-30) mmol/L Calcium 8.3 L (8.4-10.2) mg/dL ALT 54 H (4-49) U/L Total Protein 5.3 L (6.3-8.2) g/dL Albumin 2.7 L (3.5-5.0) g/dL Assessment and Plan (1) Ileus Narrative/Plan: 78-year-old male with intestinal ileus. Doing better today. Tolerating regular diet now at this time. Continue increasing activity. Discharge per primary services. Current Visit: Yes Status: Acute Code(s): K56.7 - ILEUS, UNSPECIFIED SNOMED Code(s): 019168047
--- NOTE | 2023-12-25 11:56 | P.PN ---
Subjective Progress Note Date: 12/25/23 Chevy French, is a 77-year-old male who presented to [facility] emergency room due to abdominal pain and generalized weakness and hypotension. Patient was recently admitted to [facility] after sustaining a fall and having femur fracture he underwent surgery and was transferred to [facility] for [facility]hab. He was evaluated in the emergency room vital examination on presentation revealed a temperature of 98.7 pulse 80 respiration 30 blood pressure 80/53 pulse ox 97% on 5 L nasal cannula Laboratory data revealed a white blood count of 14.5 hemoglobin 10.1 platelet count 511 sodium 122 potassium 6.0 chloride 79 BUN 83 creatinine 4.23 Testing in the emergency room revealed chest x-ray revealed low lung volumes with generalized hazy appearance which could represent atelectasis versus pulmonary edema, CT scan of the abdomen revealed dilated small bowel loops and stomach without clear focal transition point, and significantly distended urinary bladder with bilateral hydronephrosis. Patient was admitted to medical floor for further evaluation and treatment On 12/16/2023 patient was seen and examined in the ICU, he is alert and oriented in no distress, he is maintained on blood pressure support, triple lumen and arterial line inserted, patient is followed by critical care, he denies any chest pain, or shortness of breath, munoz catheter inserted yesterday, kidney function improving. On 12/17/2023 patient is alert and oriented. Patient remains in the ICU pressure supporting medication. Creatinine improving to 1.28 bun 38 potassium 4.8 sodium 135.current vital signs temp 98.1, heart rate 60, respiratory rate 20, blood pressure 1 today knee 6/41 with pulse ox of96% on 4 L. Patient remains with NG tube nothing by mouth. On 12/18/2023 patient was seen and examined in the ICU he is alert and oriented x 3 in no apparent distress, there is no fever or chills no headache or dizziness no chest pain no shortness of breath no cough no nausea or vomiting no abdominal pain no diarrhea no blood in the stools, patient is passing gas and having bowel movements, no burning with urination no frequency or urgency and no hematuria. Yesterday patient developed atrial fibrillation with rapid ventricular response, he was seen by cardiology and was started on IV heparin. On 12/19/2023 patient was seen and examined in the ICU, he is alert and oriented x 3 in no distress, there is no fever or chills no headache or dizziness no chest pain no shortness of breath no cough no nausea or vomiting no abdominal pain no diarrhea and no urinary symptoms. Patient still has Munoz catheter in. CT scan of the chest done yesterday revealed bilateral consolidative opacities and pleural effusion left greater than right. Patient is maintained on IV Zosyn, he is also maintained on IV heparin for new onset atrial fibrillation, pulmonary and cardiology are following. On 12/20/2023 patient was seen and examined in the ICU he is alert and oriented x 3 in no apparent distress there is no fever or chills no headache or dizziness no chest pain, he is still complaining of cough and shortness of breath with any activity there is no nausea or vomiting no abdominal pain no diarrhea no blood in the stools, Munoz catheter is still in. Vital exam reveals a temperature of 97.7 pulse 57 respiration 13 blood pressure 117/59 pulse ox 98% on 3 L nasal cannula. White blood count 4.9 hemoglobin 7.8 platelet count 328 BUN 14 creatinine 0.74 On 12/21/2023 patient remains in the intensive care unit patient is alert and oriented x 3. Current vital signs temp 97.5, heart 75, respiratory rate 18, blood pressure 133/68 with a pulse ox of 99% on 2 L. White blood cell 4.5, hemoglobin 7.5, creatinine 0.64 and bun 12. Patient remains short of breath wit h cough. Patient denies any nausea vomiting or diarrhea. Patient denies any urinary burning or frequency On 12/22/2023 patient is alert and oriented x 3 currently sitting up in chair. Patient maintained on full liquid diet. Patient having episodes of A-fib with RVR has been started on amiodarone per cardiology. Patient remains on IV Zosyn. Current vital signs temp 98.4, heart rate 122, respiratory rate 26, blood pressure 115/73 with pulse ox 100% on 3 L nasal cannula. Patient denies chest pain or shortness of breath. Patient denies nausea vomiting or diarrhea. Patient denies any urinary burning or frequency On 12/23/2023 patient was seen and examined in the ICU, he is alert and oriented x 3 in no distress, there is no fever or chills no headache or dizziness no chest pain no shortness of breath no cough no nausea or vomiting no abdominal pain no diarrhea and no urinary symptoms. Patient still has Munoz catheter in. CT scan of the chest done yesterday revealed bilateral consolidative opacities and pleural effusion left greater than right. Patient is still maintained on IV Zosyn, he is also maintained on Eliquis for new onset atrial fibrillation, pulmonary and cardiology are following. On 12/24/2023 patient has been transferred out of the ICU to [facility]. Patient is alert and oriented x 3. Patient was started on p.o. amiodarone. Patient also started on IV Lasix per cardiology. Patient remains on IV Zosyn. Current vital signs temp 97.8, heart rate 64, respiratory rate 17, blood pressure 107/66 with a pulse ox of 100% on 2 L. Patient denies chest pain or shortness of breath. Patient denies nausea vomiting or diarrhea. Patient denies any urinary burning or frequency On 12/25/2023 patient was seen and examined on the telemetry floor he is alert and oriented x 3 in no apparent distress, he is sitting up in a chair, he denies any complaints at this time, he had multiple episodes of diarrhea yesterday, C. difficile EIA testing was negative, lactulose was discontinued, and patient denies any new episodes of diarrhea today, otherwise patient denies any complaints there is no fever or chills no headache or dizziness no chest pain no shortness of breath no cough no nausea or vomiting no abdominal pain no diarrhea and no urinary symptoms. Objective - Vital Signs Vital signs: Vital Signs Temp 97.6 F 12/25/23 08:59 Pulse 62 12/25/23 09:00 Resp 18 12/25/23 09:00 BP 112/63 12/25/23 08:59 Pulse Ox 100 12/25/23 08:59 FiO2 28 12/23/23 04:00 Intake & Output 12/24/23 12/25/23 12/25/23 18:59 06:59 18:59 Intake Total 20 40 10 Output Total 8204 617 5441 Balance -3703 -260 Weight 91 kg Intake: IV 20 40 10 Invasive Line 1 20 20 Invasive Line 5 20 10 Output: Urine 0868 295 4098 Other: Voiding Method Indwelling Catheter Indwelling Catheter Indwelling Catheter # Voids 0 # Bowel Movements 4 0 ABP, PAP, CO, CI - Last Documented Arterial Blood Pressure 104/33 - Exam In general patient is alert and oriented x 3 in no distress HEENT head normocephalic and atraumatic Neck is supple no JVD no goiter no lymphadenopathy no carotid bruit Chest examination is clear to auscultation no crackles no wheezing Cardiac exam reveals regular heart sounds S1 and S2 no gallops no murmurs Abdomen is soft with mild diffuse tenderness no organomegaly no palpable masses with sluggish bowel sounds Extremity exam reveals no edema no cyanosis or clubbing Neurological examination reveals no gross focal deficits - Labs CBC & Chem 7: 12/25/23 06:13 12/25/23 06:13 Labs: Abnormal Lab Results - Last 24 Hours (Table) 12/25/23 12/25/23 Range/Units 06:13 06:13 RBC 2.82 L (4.30-5.90) m/uL Hgb 8.8 L (13.0-17.5) gm/dL Hct 27.6 L (39.0-53.0) % Lymphocytes # 0.9 L (1.0-4.8) k/uL Sodium 134 L (137-145) mmol/L Chloride 95 L (98-107) mmol/L Carbon Dioxide 39 H (22-30) mmol/L Calcium 8.3 L (8.4-10.2) mg/dL ALT 54 H (4-49) U/L Total Protein 5.3 L (6.3-8.2) g/dL Albumin 2.7 L (3.5-5.0) g/dL Assessment and Plan Plan: Abdominal pain Dilated small bowels with possible ileus versus partial small bowel obstruction Urinary retention Hypotension Severe hyponatremia Acute kidney injury Electrolyte imbalance with severe hyperkalemia Leukocytosis Recent fall with right femur fracture with surgical repair New onset atrial fibrillation with rapid ventricular response during this admission At this time patient is admitted to medical floor Munoz catheter was inserted in the emergency room He was started on IV fluid Nephrology and urology consultation were requested For DVT prophylaxis subcu Pamx Will follow closely
--- NOTE | 2023-12-25 12:51 | P.PN ---
Subjective Progress Note Date: 12/25/23 HISTORY OF PRESENT ILLNESS: The patient is a 77-year-old male who presented with progressive fatigue abd ominal pain was found to have ileus, hyponatremia and acute renal injury cardiology consultation was requested because of atrial fibrillation. The patient was in the hospital earlier this month after a fall and a fractured hip, underwent surgery. His echocardiogram preoperatively showed a preserved systolic function with moderate aortic stenosis and a mean gradient of 21 mmHg. He continues to be on vasopressor but at a lower dose. He went in atrial fibrillation earlier this morning with controlled ventricular response, asymptomatic. He has an underlying right bundle branch block and no prior atrial fibrillation during his hospitalization. He has no significant peripheral edema. His urine output has been good. He continues to have an NG tube but he is having flatus and has underwent further evaluation with abdominal x-ray today. Patient has a prior history of stroke and was on Plavix in the past. He had significant hypotension on presentation and received intravenous fluid December 17: The patient is feeling well, he continues to be in atrial fibrillation with controlled ventricle response with episodes with a heart rate up to the 1 teens. He continues to be on IV heparin. He is off norepinephrine and his vasopressin is being weaned. He had a CT scan of the chest that showed consolidation and possible pneumonia. He is passing flatus and tolerating oral intake. His urinary output is good. December 18: The patient is back in sinus mechanism this morning with sinus bradycardia. He is feeling well overall, denies any chest discomfort, dizziness or palpitations. He is off vasopressors. He has no nausea or vomiting. His chest x-ray is suggestive of pneumonia and pleural effusion. Medications: Aspirin 81 mg daily, IV heparin, nicotine patch, metoprolol to t artrate 12.5 mg twice a day, Lipitor 40 mg daily 12/19 patient seen and examined. Patient denies any chest pain or shortness breath. Has not had a bowel movement per nursing. Heart rates in the 50s to 60s in sinus rhythm however drops down into the 40s at time with decrease in blood pressure is well. He is not actually symptomatic during these episodes. His metoprolol however was decreased however still having episodes and temporarily needed to go back on vasopressors. Hemoglobin borderline at 7.8.no hematochezia or melena and tolerating eliquis. 12/20 patient seen and examined. Patient denies any chest pain or pressure. He has been diuresis and states his shortness breath is improving. He is having sinus bradycardic episodes [place] of heart rates in the 30s which are temporary all during the sleeping hours. Per nursing monitoring his sleeping there is high suspicion of sleep apnea. He denies any history of syncope or lightheadedness. He is not on any rate control medications and his TSH was noted to be normal this admission. 12/21 He wore BiPAP overnight without any further significant bradycardic episodes. Therefore bradycardic episodes appear more related to sleep apnea. He did have recurrent episode of short A. fib for a few minutes which was asymptomatic with heart rates up to the 150s and 160s. Came back down to normal sinus rhythm. Denies any chest pain or pressure currently. 12/22 Patient seen and examined. Patient denies any chest pain or pressure. Continues to be diuresis with normal creatinine. Remains in sinus rhythm. We attempted flecainide however patient having recurrent episodes of A. fib and therefore switched to amiodarone and has remained in sinus rhythm. We will transition to oral amiodarone. 12/24/2023 Patient examined this morning at the bedside. Patient currently denies chest pain or pressure. He denies shortness of breath. He denies dizziness or lightheadedness. He is tolerating oral intake without nausea or vomiting. Telemetry reveals sinus mechanism with a heart rate in the 50s this morning. 12/25/2023 Patient is doing good. He denies any chest pain or shortness of breath. Labs show stable hemoglobin 8.8, creatinine 0.94, sodium 134, potassium 4.5. Telemetry shows sinus rhythm with heart rates 5060s. Patient wants to go home. PHYSICAL EXAM: VITAL SIGNS: Reviewed. GENERAL: Well-developed in no acute distress. NECK: Supple. No JVD or thyromegaly LUNGS: Respirations even and unlabored. Lungs essentially clear to auscultation bilaterally. HEART: Regular rate and rhythm. S1 and S2 heard. Systolic murmur EXTREMITIES: Normal range of motion. No clubbing or cyanosis. Peripheral pulses intact. Bilateral lower extremity edema ASSESSMENT: 1. Small bowel obstruction, resolved 2. Atrial fibrillation, new onset, paroxysmal, back in sinus mechanism 3. Acute renal injury, resolved 4. Anemia 5. History of stroke 6. Moderate aortic stenosis 7. asymptomatic sinus bradycardia likely exacerbated by suspected sleep apnea and increased vagal tone while sleeping PLAN: Continue current dose of oral amiodarone. Decrease to 200 mg twice a day after 1 week, then 200 mg daily. Continue anticoagulation with Eliquis Continue metoprolol 12.5 mg daily Transition to oral diuretics tomorrow Increase activities as tolerated Continue telemetry monitoring Further recommendations pending patient course Nurse practitioner note has been reviewed by physician. Signing provider agrees with the documented findings, assessment, and plan of care documented by GAME AUTHOR as a scribe. Objective - Vital Signs Vital signs: Vital Signs Temp 97.6 F 12/25/23 08:59 Pulse 62 12/25/23 09:00 Resp 18 12/25/23 09:00 BP 112/63 12/25/23 08:59 Pulse Ox 100 12/25/23 08:59 FiO2 28 12/23/23 04:00 Intake & Output 12/24/23 12/25/23 12/25/23 18:59 06:59 18:59 Intake Total 20 40 10 Output Total 1525 300 Balance -1505 -260 10 Weight 91 kg Intake: IV 20 40 10 Invasive Line 1 20 20 Invasive Line 5 20 10 Output: Urine 1525 300 Other: Voiding Method Indwelling Catheter Indwelling Catheter Indwelling Catheter # Voids 0 # Bowel Movements 4 0 ABP, PAP, CO, CI - Last Documented Arterial Blood Pressure 104/33 - Labs CBC & Chem 7: 12/25/23 06:13 12/25/23 06:13 Labs: Abnormal Lab Results - Last 24 Hours (Table) 12/25/23 12/25/23 Range/Units 06:13 06:13 RBC 2.82 L (4.30-5.90) m/uL Hgb 8.8 L (13.0-17.5) gm/dL Hct 27.6 L (39.0-53.0) % Lymphocytes # 0.9 L (1.0-4.8) k/uL Sodium 134 L (137-145) mmol/L Chloride 95 L (98-107) mmol/L Carbon Dioxide 39 H (22-30) mmol/L Calcium 8.3 L (8.4-10.2) mg/dL ALT 54 H (4-49) U/L Total Protein 5.3 L (6.3-8.2) g/dL Albumin 2.7 L (3.5-5.0) g/dL
--- NOTE | 2023-12-25 13:16 | P.PN ---
Subjective Progress Note Date: 12/25/23 Principal diagnosis: Acute small bowel obstruction 77-year-old male patient, presented to the hospital because of abdominal pain, nausea, emesis, abdominal distention along with weakness, and hypotension. He also noted diminished urine output. His last bowel movement was more than 2 days ago. He is not passing any flatus. He was not treated secondary for rehabilitation following a fall with a fracture requiring surgery. In the emergency, the patient was found to have an acute on top of chronic kidney injury. Rich catheter was inserted and the patient immediately produced around 1 L of urine output. Patient was also given an NG tube and a total of 2.5 L of gastric material was aspirated immediately. CAT scan of the abdomen and pelvis was done in the emergency and the patient was found to have fluid-filled esophagus with dilated gas and fluid-filled stomach. Patient also had dilated small bowel with air fluid levels. The distal small bowel appeared collapsed and there was no clear focal transition identified. No focal bowel wall thickening or inflammatory changes. The small bowel measures up to 4.3 cm in size. Gas and stool was present in the large bowel. Appendix was normal. No evidence of interval pneumoperitoneum. Small bilateral pleural effusions along with compressive atelectasis in the lung bases were noted. Blood work showed an acute on top of chronic kidney injury. The patient's creatinine was up to 4.23 with a BUN of 83 and his sodium was 122 with a potassium level of 6 and a chloride was 79 with a bicarb level of 32. Normal LFTs. proBNP level is 468. Amylase and lipase are within normal limits. The white cell count of 14.5 with a hemoglobin 10.1 and a platelet of 511. Coagulation profile is within normal limits. Chest x-ray showed cardiomegaly with mild pulm vascular congestion. For now, the patient is being resuscitated with IV fluids. He is on normal saline at rate of 100 cc an hour. He is also on norepinephrine which is running at 0.15 mcg/kg/min. He is on oxygen at 3 L/min nasal cannula. Triple-lumen catheter was established and the intensive care unit along with an arterial line. General surgery is on the case. Nephrology is also on the case. 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 He is an ex-smoker. 12/16/2023, the patient is being seen for a follow-up. The patient is much more awake compared to yesterday. Noted the patient was aggressive resuscitative IV fluids and over the past 24 hours, the patient received a total of 6 L of IV flu ids. Currently on normal saline at rate of 100 cc an hour. The patient required high doses of pressors overnight and norepinephrine was as high as 0.5 mcg/kg/min. Vasopressin was added and currently norepinephrine is down to 0.32 mcg/kg/min. He is much more awake and alert and is communicating. He is on 3 L of O2 nasal cannula. NG tube is still in place and the total amount of output is given in the order of 3.6 L since the tube was placed. Urine output is improving and the patient is producing around 100 cc an hour. No fever. No chills. White cell count 11.7 with hemoglobin 8.8 and a platelet count of 578. Sodium is at 130, BUN 63 with a creatinine of 2.7. The potassium levels of 5.4 and a serum bicarb is at 20. CPK is 1024. Axes are normal. Serum cortisol was 16.9. proBNP level was 1360. Lactic acid level was ordered and results are still pending for now. Troponins at 0.034. His previous echocardiogram showed moderate aortic stenosis and preserved LV function. He is currently on O2 at 3 L. Chest x-ray shows a triple-lumen catheter in the left subclavian. At the same time, the patient has increased pulm vascular markings and some early infiltration of the left perihilar area. On 12/17/2023, the patient is being seen for a follow-up. The patient is, comfortable on 5 L of oxygen by nasal cannula. Continues to have a congested cough. NG tube is in place and output is minimal. Hemodynamically, is improved and the patient is still on norepinephrine running at 0.16 mcg/kg/min and the patient is also physiologic dose of vasopressin. The patient is on half-normal saline at rate of 130 cc an hour. Overall fluid balance is +1.9 L over the past 24 hours. Blood pressures improved and the patient's urine output is excellent for now. Meanwhile, he is afebrile. Hemodynamically he is improving and the blood pressure has essentially improved. We should be able to wean down the pressors. Meanwhile, the patient chest x-ray showing cardiomegaly and the patient has worsening left lower lobe pulmonary filtrate. This could be atelectasis versus pneumonia. NG tube is in a good location. There is background cardiomegaly. The patient remains on IV Zosyn as a broad-spectrum antibiotic coverage for now. The patient is also on Lovenox 40 mg subcu for DVT prophylaxis. The white cell count is 7.6 with a hemoglobin of 7.6 and a platelet count of 398. BUN 38 with a creatinine of 1.2 and a sodium levels at 135 and potassium levels of 4.5. LFTs are essentially within normal limits. Bowel sounds are more active on today's evaluation. The patient remains n.p.o. for now. No other significant events overnight. 12/18/2023, I am seeing the patient for a follow-up. The patient is doing well. He is passing flatus. Had a bowel movement yesterday. Output from the G-tube is minimal. Based on that, I ended up removing the NG tube today. I noted some progressive worsening his oxygenation. Earlier this morning, the patient was placed on O2 at 15 L. The chest x-ray shows worsening in bilateral pulmonary filtrates. Based on that, I ordered a CAT scan of the chest to evaluate the patient's pulmonary findings and the CAT scan was completed this morning and it shows evidence of bilateral consolidation and opacities noted bilateral pleural effusion left more than right. Underlying pneumonia cannot be completely excluded. The patient's renal function has essentially normalized. The white cell count of 6.3 with a hemoglobin 7.6 and a platelet count of 366. The sodium is at 141, bicarb is at 27, BUN 22 with a creatinine of 0.9. LFTs are normal. The patient is awake and alert. He remains in atrial fibrillation. He was found to be slightly more tachycardic on today's evaluation. He remains on IV heparin for now. Antibiotic coverage is with IV Zosyn. On today's evaluation of 12/19/2023, the patient is being seen for a follow-up. Patient is currently on 3 days of oxygen by nasal cannula. Taking clear liquid diet. He is on half-normal saline which is running at 75 cc an hour. No nausea. No vomiting. Abdominal pain. No chest pain. He has been started on IV heparin regarding episode of atrial fibrillation. He is also on metoprolol 25 mg twice a day. His blood work shows a WBC count of 5.2 with a hemoglobin 7.8 and platelet count of 348. Sodium is at 138 with a potassium level of 4.3, bicarb is at 31, BUN is 18 with a creatinine of 0.7. LFTs are within normal limits. Awake and alert and communicating. No other significant events overnight. Patient evaluated today on 12/20/23, remains in the ICU, his nasogastric tube was discontinued by surgery, patient seems to be comfortable, not in distress, intermittently noted to have bradycardia and drop in his blood pressure, being addressed by cardiology. Patient denies being short of breath denies abdominal pain although his abdomen seems to be distended and no bowel sounds noted. Patient remains on Zosyn, his last bowel movement was 12/16. WBC count is 4.9 hemoglobin 7.8 electrolytes are normal renal profile is normal, his metoprolol was decreased by cardiology, because of his intermittent episodes of bradycardia and hypotension Patient was evaluated today 12/21/2023, remains in the ICU, tolerating liquid diet well, still had no bowel movement since the . Patient had a presentation of the ileus, urinary retention and bilateral hydronephrosis, acute kidney injury, hyponatremia, and history of CVA on Plavix, also had a history of recent hip fracture. And in addition to this he has moderate to severe aortic stenosis. Today the patient seems to be comfortable, not in any distress, on 2 L nasal cannula, hemoglobin is 7.5, otherwise the labs were unremarkable. Patient remains on Zosyn empirically, he does have abnormal chest x-ray showing bilateral airspace disease. Patient had another episode last night of bradycardia and according to the nurse he may have had an episode of obstructive sleep apnea associated with bradycardia. Hence I am recommending BiPAP tonight at 02/24/28%.WBC count is 4.5 hemoglobin 7.5 electrolytes are normal renal profile is normal Patient was seen today on 12/22/2023, remains in the ICU, remains on nasal cannula does not seem to be in distress he is on 3 L nasal cannula patient did not tolerate BiPAP well last night, and he kept removing it. Patient is on Eliquis is also on Zosyn, and the plan is to send the patient to 3 S. once a bed becomes available. Patient was seen by cardiology, addressing his arrhythmia and his blood pressure. Pulmonary v[place] patient remains on diuretics, and he remains also on antibiotics. Improving, does not seem to be in any distress todayPatient even had a bowel movement today. WBC count is 5.8 hemoglobin 8.2 electrolytes are normal potassium is a bit low at 3.3 BUN is 9 creatinine 0.78. Patient was evaluated today on 12/23/2023, patient remains in the ICU as an overflow. He is on 2 L nasal cannula, patient is doing great, patient has been offered BiPAP for his obstructive sleep apnea but refuses to use it. He is being considered for possible transfer to rehab, and I will clear the patient if he is cleared by cardiology. In the meantime we will try to get the patient out of the ICU he has no GI issues, he is having bowel movements without any di fficulty. His abdomen is soft. Denies any shortness of breath or cough or wheezing. WBC count is 8.3 hemoglobin 8.7 basic metabolic profile is normal and renal profile is normal bicarb is 38. Patient was evaluated today on 12/24/2023, patient is doing great, feeling much better, patient is having normal bowel movements according to him, chest x-ray is showing improvement in his interstitial edema/pneumonia. Patient remains on diuretics he also remains on antibiotics. Findings on the chest x-ray are consistent with improving pneumonia/pulmonary edema. But not back to baseline. Continues to have abdominal distention findings based on the chest x-ray itself.WBC count 7.5 hemoglobin 8.8 electrolytes are normal renal profile is normal. Patient was seen today on 12/25/2023, continues to do well, does not seem to be in any distress, on 2 L nasal cannula with O2 saturation 100%. Chest x-ray showed dramatic improvement in his pneumonia/pulmonary edema, continues to improve steadily. GI symptoms have basically resolved, patient has no issues with bowel movements.WBC count is 6.9 hemoglobin 8.8 basic metabolic profile is normal bicarb is 39 renal profile is normal, C. difficile is negative Objective - Vital Signs Vital signs: Vital Signs Temp 97.8 F 12/25/23 11:43 Pulse 60 12/25/23 12:23 Resp 18 12/25/23 11:43 BP 108/64 12/25/23 11:43 Pulse Ox 100 12/25/23 11:43 FiO2 28 12/23/23 04:00 Intake & Output 12/24/23 12/25/23 12/25/23 18:59 06:59 18:59 Intake Total 20 40 10 Output Total 5198 675 5540 Balance -1503 -260 -1989 Weight 91 kg Intake: IV 20 40 10 Invasive Line 1 20 20 Invasive Line 5 20 10 Output: Urine 9025 816 2665 Other: Voiding Method Indwelling Catheter Indwelling Catheter Indwelling Catheter # Voids 0 # Bowel Movements 4 0 ABP, PAP, CO, CI - Last Documented Arterial Blood Pressure 104/33 - Exam General: Revealed 77-year-old white male in no distress.On 2L nasal cannula O2 s aturation is 100% HEENT head normocephalic and atraumatic Neck is supple no JVD no goiter no lymphadenopathy no carotid bruit Chest examination: Diminished breath sound bilaterally no crackles rhonchi or wheezes Cardiac exam reveals regular heart sounds S1 and S2 no gallops 2/6 systolic murmur throughout the precordium Abdomen soft, nontender, no rebound no guarding, positive bowel sounds. Extremity exam reveals no edema no cyanosis or clubbing Neurological examination reveals no gross focal deficits Psychiatric: Normal mood affect and normal mental status examination. Skin: No rashes. - Labs CBC & Chem 7: 12/25/23 06:13 12/25/23 06:13 Labs: Abnormal Lab Results - Last 24 Hours (Table) 12/25/23 12/25/23 Range/Units 06:13 06:13 RBC 2.82 L (4.30-5.90) m/uL Hgb 8.8 L (13.0-17.5) gm/dL Hct 27.6 L (39.0-53.0) % Lymphocytes # 0.9 L (1.0-4.8) k/uL Sodium 134 L (137-145) mmol/L Chloride 95 L (98-107) mmol/L Carbon Dioxide 39 H (22-30) mmol/L Calcium 8.3 L (8.4-10.2) mg/dL ALT 54 H (4-49) U/L Total Protein 5.3 L (6.3-8.2) g/dL Albumin 2.7 L (3.5-5.0) g/dL Assessment and Plan Assessment: Impression: Small bowel obstruction/ileus with secondary abdominal pain and distention, and clinically improved and NG tube was removed on 12/18/2023 General Surgery is on the case Acute kidney injury, recovered Acute hyperkalemia, resolved Moderately severe aortic stenosis Acute hypoxic respiratory failure, currently on 2 L of oxygen by nasal cannula. The patient has consolidation in the lung bases and bilateral pleural effusion left more than right. On diuretics he is also on antibiotics Hypotension, likely hypovolemic in nature in addition to presence of a moderately severe aortic stenosis which probably contributed to his significant drop in the blood pressure, recovered Recent hip fracture status post ORIF History of CVA maintained on Plavix with some residual left-sided weakness Hyperlipidemia Anemia of chronic disease Acute hyponatremia in the setting of obstructive uropathy and renal failure, improving Recommendation: Chest x-ray showed steady improvement over the last 1 week this was done yesterday and reviewed yesterday and today Continue Zosyn Continue Lasix Rehab placement is in progress Will continue to follow Time with Patient: Less than 30
[2023-12-25] MEDS: SENNOSIDES 8.6 MG TAB PO PRN (21:34)
[2023-12-26 05:47] LABS: Basophils % (A) 0 %; Eosinophils # (A) 0.2 k/uL (0-0.7); Eosinophils % (A) 4 %; HCT 28.1 % (39.0-53.0); Lymphocytes # (A) 0.7 k/uL (1.0-4.8); Lymphocytes % (A) 11 %; MCH 30.9 pg (25.0-35.0); MCV 96.5 fL (80.0-100.0); Mean Platelet Volume 7.4; Monocytes # (A) 0.4 k/uL (0-1.0); Monocytes % (A) 6 %; Neutrophils % (A) 79 %; Platelet Count 344 k/uL (150-450); RBC 2.91 m/uL (4.30-5.90); RDW 14.7 % (11.5-15.5); WBC 6.4 k/uL (3.8-10.6)
[2023-12-26 06:13] LABS: ALT 49 U/L (4-49); AST 37 U/L (17-59); African American GFR (CKD) >90 (>60 ml/min/1.73 sqM); Albumin 2.7 g/dL (3.5-5.0); Alkaline Phosphatase 83 U/L (38-126); Anion Gap 1 mmol/L; Blood Urea Nitrogen 14 mg/dL (9-20); Calcium 8.3 mg/dL (8.4-10.2); Carbon Dioxide 37 mmol/L (22-30); Chloride 96 mmol/L (98-107); Glucose 98 mg/dL (74-99); Non-African American GFR(CKD) 79 (>60 ml/min/1.73 sqM); Potassium 4.4 mmol/L (3.5-5.1); Sodium 134 mmol/L (137-145); Total Bilirubin 0.4 mg/dL (0.2-1.3); Total Protein 5.5 g/dL (6.3-8.2)
--- NOTE | 2023-12-26 09:17 | P.PN ---
Subjective Progress Note Date: 12/26/23 Chevy French, is a 77-year-old male who presented to [facility] emergency room due to abdominal pain and generalized weakness and hypotension. Patient was recently admitted to [facility] after sustaining a fall and having femur fracture he underwent surgery and was transferred to residential for rehab. He was evaluated in the emergency room vital examination on presentation revealed a temperature of 98.7 pulse 80 respiration 30 blood pressure 80/53 pulse ox 97% on 5 L nasal cannula Laboratory data revealed a white blood count of 14.5 hemoglobin 10.1 platelet count 511 sodium 122 potassium 6.0 chloride 79 BUN 83 creatinine 4.23 Testing in the emergency room revealed chest x-ray revealed low lung volumes with generalized hazy appearance which could represent atelectasis versus pulmonary edema, CT scan of the abdomen revealed dilated small bowel loops and stomach without clear focal transition point, and significantly distended urinary bladder with bilateral hydronephrosis. Patient was admitted to medical floor for further evaluation and treatment On 12/16/2023 patient was seen and examined in the ICU, he is alert and oriented in no distress, he is maintained on blood pressure support, triple lumen and arterial line inserted, patient is followed by critical care, he denies any chest pain, or shortness of breath, munoz catheter inserted yesterday, kidney function improving. On 12/17/2023 patient is alert and oriented. Patient remains in the ICU pressure supporting medication. Creatinine improving to 1.28 bun 38 potassium 4.8 sodium 135.current vital signs temp 98.1, heart rate 60, respiratory rate 20, blood pressure 1 today knee 6/41 with pulse ox of96% on 4 L. Patient remains with NG tube nothing by mouth. On 12/18/2023 patient was seen and examined in the ICU he is alert and oriented x 3 in no apparent distress, there is no fever or chills no headache or dizziness no chest pain no shortness of breath no cough no nausea or vomiting no abdominal pain no diarrhea no blood in the stools, patient is passing gas and having bowel movements, no burning with urination no frequency or urgency and no hematuria. Yesterday patient developed atrial fibrillation with rapid ventricular response, he was seen by cardiology and was started on IV heparin. On 12/19/2023 patient was seen and examined in the ICU, he is alert and oriented x 3 in no distress, there is no fever or chills no headache or dizziness no chest pain no shortness of breath no cough no nausea or vomiting no abdominal pain no diarrhea and no urinary symptoms. Patient still has Munoz catheter in. CT scan of the chest done yesterday revealed bilateral consolidative opacities and pleural effusion left greater than right. Patient is maintained on IV Zosyn, he is also maintained on IV heparin for new onset atrial fibrillation, pulmonary and cardiology are following. On 12/20/2023 patient was seen and examined in the ICU he is alert and oriented x 3 in no apparent distress there is no fever or chills no headache or dizziness no chest pain, he is still complaining of cough and shortness of breath with any activity there is no nausea or vomiting no abdominal pain no diarrhea no blood in the stools, Munoz catheter is still in. Vital exam reveals a temperature of 97.7 pulse 57 respiration 13 blood pressure 117/59 pulse ox 98% on 3 L nasal cannula. White blood count 4.9 hemoglobin 7.8 platelet count 328 BUN 14 creatinine 0.74 On 12/21/2023 patient remains in the intensive care unit patient is alert and oriented x 3. Current vital signs temp 97.5, heart 75, respiratory rate 18, blood pressure 133/68 with a pulse ox of 99% on 2 L. White blood cell 4.5, hemoglobin 7.5, creatinine 0.64 and bun 12. Patient remains short of breath wit h cough. Patient denies any nausea vomiting or diarrhea. Patient denies any urinary burning or frequency On 12/22/2023 patient is alert and oriented x 3 currently sitting up in chair. Patient maintained on full liquid diet. Patient having episodes of A-fib with RVR has been started on amiodarone per cardiology. Patient remains on IV Zosyn. Current vital signs temp 98.4, heart rate 122, respiratory rate 26, blood pressure 115/73 with pulse ox 100% on 3 L nasal cannula. Patient denies chest pain or shortness of breath. Patient denies nausea vomiting or diarrhea. Patient denies any urinary burning or frequency On 12/23/2023 patient was seen and examined in the ICU, he is alert and oriented x 3 in no distress, there is no fever or chills no headache or dizziness no chest pain no shortness of breath no cough no nausea or vomiting no abdominal pain no diarrhea and no urinary symptoms. Patient still has Munoz catheter in. CT scan of the chest done yesterday revealed bilateral consolidative opacities and pleural effusion left greater than right. Patient is still maintained on IV Zosyn, he is also maintained on Eliquis for new onset atrial fibrillation, pulmonary and cardiology are following. On 12/24/2023 patient has been transferred out of the ICU to [facility]. Patient is alert and oriented x 3. Patient was started on p.o. amiodarone. Patient also started on IV Lasix per cardiology. Patient remains on IV Zosyn. Current vital signs temp 97.8, heart rate 64, respiratory rate 17, blood pressure 107/66 with a pulse ox of 100% on 2 L. Patient denies chest pain or shortness of breath. Patient denies nausea vomiting or diarrhea. Patient denies any urinary burning or frequency On 12/25/2023 patient was seen and examined on the telemetry floor he is alert and oriented x 3 in no apparent distress, he is sitting up in a chair, he denies any complaints at this time, he had multiple episodes of diarrhea yesterday, C. difficile EIA testing was negative, lactulose was discontinued, and patient denies any new episodes of diarrhea today, otherwise patient denies any complaints there is no fever or chills no headache or dizziness no chest pain no shortness of breath no cough no nausea or vomiting no abdominal pain no diarrhea and no urinary symptoms. On 12/26/2023 patient is alert and oriented x 3 currently sitting up in chair. Patient reports improvement with abdominal discomfort no further diarrhea. Patient remains on IV diuretics. Discharge planning to [facility]. Current vital signs temp 97.8, heart rate 64, respiratory rate 18, blood pressure 103/54 with a pulse ox of 97% on 2 L. Patient denies chest pain or shortness of breath. Patient denies nausea vomiting or diarrhea. Patient denies any urinary burning or frequency Objective - Vital Signs Vital signs: Vital Signs Temp 97.8 F 12/26/23 04:10 Pulse 62 12/26/23 08:46 Resp 18 12/26/23 04:10 BP 103/54 12/26/23 04:10 Pulse Ox 97 12/26/23 04:10 FiO2 28 12/23/23 04:00 Intake & Output 12/25/23 12/26/23 12/26/23 18:59 06:59 18:59 Intake Total 140 30 240 Output Total 2350 575 375 Balance -2210 -415 -135 Weight 110.5 kg Intake: IV 20 30 Invasive Line 5 20 20 Invasive Line 6 10 Oral 120 240 Output: Urine 2350 575 375 Other: Voiding Method Indwelling Catheter Indwelling Catheter ABP, PAP, CO, CI - Last Documented Arterial Blood Pressure 104/33 - Exam In general patient is alert and oriented x 3 in no distress HEENT head normocephalic and atraumatic Neck is supple no JVD no goiter no lymphadenopathy no carotid bruit Chest examination is clear to auscultation no crackles no wheezing Cardiac exam reveals regular heart sounds S1 and S2 no gallops no murmurs Abdomen is soft with mild diffuse tenderness no organomegaly no palpable masses with sluggish bowel sounds Extremity exam reveals no edema no cyanosis or clubbing Neurological examination reveals no gross focal deficits - Labs CBC & Chem 7: 12/26/23 05:01 12/26/23 05:01 Labs: Abnormal Lab Results - Last 24 Hours (Table) 12/26/23 12/26/23 Range/Units 05:01 05:01 RBC 2.91 L (4.30-5.90) m/uL Hgb 9.0 L (13.0-17.5) gm/dL Hct 28.1 L (39.0-53.0) % Lymphocytes # 0.7 L (1.0-4.8) k/uL Sodium 134 L (137-145) mmol/L Chloride 96 L (98-107) mmol/L Carbon Dioxide 37 H (22-30) mmol/L Calcium 8.3 L (8.4-10.2) mg/dL Total Protein 5.5 L (6.3-8.2) g/dL Albumin 2.7 L (3.5-5.0) g/dL Assessment and Plan Plan: Abdominal pain Dilated small bowels with possible ileus versus partial small bowel obstruction Urinary retention Hypotension Severe hyponatremia Acute kidney injury Electrolyte imbalance with severe hyperkalemia Leukocytosis Recent fall with right femur fracture with surgical repair New onset atrial fibrillation with rapid ventricular response during this admission At this time patient is admitted to medical floor Munoz catheter was inserted in the emergency room He was started on IV fluid Nephrology and urology consultation were requested For DVT prophylaxis subcu Lovenox Will follow closely
--- NOTE | 2023-12-26 09:55 | P.PN ---
Subjective Progress Note Date: 12/26/23 Principal diagnosis: Ileus Patient doing well today. Sitting up in the chair. Denies abdominal pain. No nausea or vomiting. Tolerating diet. Passing flatus. Last bowel movement a few days ago. Objective - Vital Signs Vital signs: Vital Signs Temp 98.4 F 12/26/23 08:00 Pulse 62 12/26/23 08:46 Resp 20 12/26/23 08:00 BP 118/59 12/26/23 08:00 Pulse Ox 97 12/26/23 08:00 FiO2 28 12/23/23 04:00 Intake & Output 12/25/23 12/26/23 12/26/23 18:59 06:59 18:59 Intake Total 140 30 240 Output Total 2350 575 375 Balance -2210 -545 -135 Weight 110.5 kg Intake: IV 20 30 Invasive Line 5 20 20 Invasive Line 6 10 Oral 120 240 Output: Urine 2350 575 375 Other: Voiding Method Indwelling Catheter Indwelling Catheter Indwelling Catheter ABP, PAP, CO, CI - Last Documented Arterial Blood Pressure 104/33 - Exam Abdomen: Soft, nontender, nondistended - Labs CBC & Chem 7: 12/26/23 05:01 12/26/23 05:01 Labs: Abnormal Lab Results - Last 24 Hours (Table) 12/26/23 12/26/23 Range/Units 05:01 05:01 RBC 2.91 L (4.30-5.90) m/uL Hgb 9.0 L (13.0-17.5) gm/dL Hct 28.1 L (39.0-53.0) % Lymphocytes # 0.7 L (1.0-4.8) k/uL Sodium 134 L (137-145) mmol/L Chloride 96 L (98-107) mmol/L Carbon Dioxide 37 H (22-30) mmol/L Calcium 8.3 L (8.4-10.2) mg/dL Total Protein 5.5 L (6.3-8.2) g/dL Albumin 2.7 L (3.5-5.0) g/dL Assessment and Plan (1) Ileus Narrative/Plan: Patient doing well at this time. Ileus definitely improved. Continue regular diet. Continue increasing activity. Current Visit: Yes Status: Acute Code(s): K56.7 - ILEUS, UNSPECIFIED SNOMED Code(s): 400720082
--- NOTE | 2023-12-26 13:04 | P.PN ---
Subjective Progress Note Date: 12/26/23 HISTORY OF PRESENT ILLNESS: The patient is a 77-year-old male who presented with progressive fatigue abd ominal pain was found to have ileus, hyponatremia and acute renal injury cardiology consultation was requested because of atrial fibrillation. The patient was in the hospital earlier this month after a fall and a fractured hip, underwent surgery. His echocardiogram preoperatively showed a preserved systolic function with moderate aortic stenosis and a mean gradient of 21 mmHg. He continues to be on vasopressor but at a lower dose. He went in atrial fibrillation earlier this morning with controlled ventricular response, asymptomatic. He has an underlying right bundle branch block and no prior atrial fibrillation during his hospitalization. He has no significant peripheral edema. His urine output has been good. He continues to have an NG tube but he is having flatus and has underwent further evaluation with abdominal x-ray today. Patient has a prior history of stroke and was on Plavix in the past. He had significant hypotension on presentation and received intravenous fluid December 17: The patient is feeling well, he continues to be in atrial fibrillation with controlled ventricle response with episodes with a heart rate up to the 1 teens. He continues to be on IV heparin. He is off norepinephrine and his vasopressin is being weaned. He had a CT scan of the chest that showed consolidation and possible pneumonia. He is passing flatus and tolerating oral intake. His urinary output is good. December 18: The patient is back in sinus mechanism this morning with sinus bradycardia. He is feeling well overall, denies any chest discomfort, dizziness or palpitations. He is off vasopressors. He has no nausea or vomiting. His chest x-ray is suggestive of pneumonia and pleural effusion. Medications: Aspirin 81 mg daily, IV heparin, nicotine patch, metoprolol to t artrate 12.5 mg twice a day, Lipitor 40 mg daily 12/19 patient seen and examined. Patient denies any chest pain or shortness breath. Has not had a bowel movement per nursing. Heart rates in the 50s to 60s in sinus rhythm however drops down into the 40s at time with decrease in blood pressure is well. He is not actually symptomatic during these episodes. His metoprolol however was decreased however still having episodes and temporarily needed to go back on vasopressors. Hemoglobin borderline at 7.8.no hematochezia or melena and tolerating eliquis. 12/20 patient seen and examined. Patient denies any chest pain or pressure. He has been diuresis and states his shortness breath is improving. He is having sinus bradycardic episodes Ozone of heart rates in the 30s which are temporary all during the sleeping hours. Per nursing monitoring his sleeping there is high suspicion of sleep apnea. He denies any history of syncope or lightheadedness. He is not on any rate control medications and his TSH was noted to be normal this admission. 12/21 He wore BiPAP overnight without any further significant bradycardic episodes. Therefore bradycardic episodes appear more related to sleep apnea. He did have recurrent episode of short A. fib for a few minutes which was asymptomatic with heart rates up to the 150s and 160s. Came back down to normal sinus rhythm. Denies any chest pain or pressure currently. 12/22 Patient seen and examined. Patient denies any chest pain or pressure. Continues to be diuresis with normal creatinine. Remains in sinus rhythm. We attempted flecainide however patient having recurrent episodes of A. fib and therefore switched to amiodarone and has remained in sinus rhythm. We will transition to oral amiodarone. 12/24/2023 Patient examined this morning at the bedside. Patient currently denies chest pain or pressure. He denies shortness of breath. He denies dizziness or lightheadedness. He is tolerating oral intake without nausea or vomiting. Telemetry reveals sinus mechanism with a heart rate in the 50s this morning. 12/25/2023 Patient is doing good. He denies any chest pain or shortness of breath. Labs show stable hemoglobin 8.8, creatinine 0.94, sodium 134, potassium 4.5. Telemetry shows sinus rhythm with heart rates 5060s. Patient wants to go home. 12/26/2023 OOB to chair. No chest pain or pressure. No shortness of breath, dizziness. HR controlled. Labs stable. PHYSICAL EXAM: VITAL SIGNS: Reviewed. GENERAL: Well-developed in no acute distress. NECK: Supple. No JVD or thyromegaly LUNGS: Respirations even and unlabored. Lungs essentially clear to auscultation bilaterally. HEART: Regular rate and rhythm. S1 and S2 heard. Systolic murmur EXTREMITIES: Normal range of motion. No clubbing or cyanosis. Peripheral pulses intact. Bilateral lower extremity edema ASSESSMENT: 1. Small bowel obstruction, resolved 2. Atrial fibrillation, new onset, paroxysmal, back in sinus mechanism 3. Acute renal injury, resolved 4. Anemia 5. History of stroke 6. Moderate aortic stenosis 7. asymptomatic sinus bradycardia likely exacerbated by suspected sleep apnea and increased vagal tone while sleeping PLAN: Continue current dose of oral amiodarone. Decrease to 200 mg twice a day after 1 week, then 200 mg daily. Continue anticoagulation with Eliquis Continue metoprolol 12.5 mg daily Transition to oral diuretics tomorrow Increase activities as tolerated Continue telemetry monitoring Further recommendations pending patient course, anticipate discharge in the next 24 to 48 hours. Nurse practitioner note has been reviewed by physician. Signing provider agrees with the documented findings, assessment, and plan of care documented by [employer] as a scribe. Objective - Vital Signs Vital signs: Vital Signs Temp 98.4 F 12/26/23 08:00 Pulse 62 12/26/23 08:46 Resp 20 12/26/23 08:00 BP 118/59 12/26/23 08:00 Pulse Ox 97 12/26/23 08:00 FiO2 28 12/23/23 04:00 Intake & Output 12/25/23 12/26/23 12/26/23 18:59 06:59 18:59 Intake Total 140 30 240 Output Total 2350 575 1075 Balance -2210 -545 -835 Weight 110.5 kg Intake: IV 20 30 Invasive Line 5 20 20 Invasive Line 6 10 Oral 120 240 Output: Urine 2350 575 1075 Other: Voiding Method Indwelling Catheter Indwelling Catheter Indwelling Catheter ABP, PAP, CO, CI - Last Documented Arterial Blood Pressure 104/33 - Labs CBC & Chem 7: 12/26/23 05:01 12/26/23 05:01 Labs: Abnormal Lab Results - Last 24 Hours (Table) 12/26/23 12/26/23 Range/Units 05:01 05:01 RBC 2.91 L (4.30-5.90) m/uL Hgb 9.0 L (13.0-17.5) gm/dL Hct 28.1 L (39.0-53.0) % Lymphocytes # 0.7 L (1.0-4.8) k/uL Sodium 134 L (137-145) mmol/L Chloride 96 L (98-107) mmol/L Carbon Dioxide 37 H (22-30) mmol/L Calcium 8.3 L (8.4-10.2) mg/dL Total Protein 5.5 L (6.3-8.2) g/dL Albumin 2.7 L (3.5-5.0) g/dL
--- NOTE | 2023-12-26 14:17 | P.PN ---
Subjective Progress Note Date: 12/26/23 Principal diagnosis: Acute small bowel obstruction 77-year-old male patient, presented to the hospital because of abdominal pain, nausea, emesis, abdominal distention along with weakness, and hypotension. He also noted diminished urine output. His last bowel movement was more than 2 days ago. He is not passing any flatus. He was not treated secondary for rehabilitation following a fall with a fracture requiring surgery. In the emergency, the patient was found to have an acute on top of chronic kidney injury. Rich catheter was inserted and the patient immediately produced around 1 L of urine output. Patient was also given an NG tube and a total of 2.5 L of gastric material was aspirated immediately. CAT scan of the abdomen and pelvis was done in the emergency and the patient was found to have fluid-filled esophagus with dilated gas and fluid-filled stomach. Patient also had dilated small bowel with air fluid levels. The distal small bowel appeared collapsed and there was no clear focal transition identified. No focal bowel wall thickening or inflammatory changes. The small bowel measures up to 4.3 cm in size. Gas and stool was present in the large bowel. Appendix was normal. No evidence of interval pneumoperitoneum. Small bilateral pleural effusions along with compressive atelectasis in the lung bases were noted. Blood work showed an acute on top of chronic kidney injury. The patient's creatinine was up to 4.23 with a BUN of 83 and his sodium was 122 with a potassium level of 6 and a chloride was 79 with a bicarb level of 32. Normal LFTs. proBNP level is 468. Amylase and lipase are within normal limits. The white cell count of 14.5 with a hemoglobin 10.1 and a platelet of 511. Coagulation profile is within normal limits. Chest x-ray showed cardiomegaly with mild pulm vascular congestion. For now, the patient is being resuscitated with IV fluids. He is on normal saline at rate of 100 cc an hour. He is also on norepinephrine which is running at 0.15 mcg/kg/min. He is on oxygen at 3 L/min nasal cannula. Triple-lumen catheter was established and the intensive care unit along with an arterial line. General surgery is on the case. Nephrology is also on the case. 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 He is an ex-smoker. 12/16/2023, the patient is being seen for a follow-up. The patient is much more awake compared to yesterday. Noted the patient was aggressive resuscitative IV fluids and over the past 24 hours, the patient received a total of 6 L of IV flu ids. Currently on normal saline at rate of 100 cc an hour. The patient required high doses of pressors overnight and norepinephrine was as high as 0.5 mcg/kg/min. Vasopressin was added and currently norepinephrine is down to 0.32 mcg/kg/min. He is much more awake and alert and is communicating. He is on 3 L of O2 nasal cannula. NG tube is still in place and the total amount of output is given in the order of 3.6 L since the tube was placed. Urine output is improving and the patient is producing around 100 cc an hour. No fever. No chills. White cell count 11.7 with hemoglobin 8.8 and a platelet count of 578. Sodium is at 130, BUN 63 with a creatinine of 2.7. The potassium levels of 5.4 and a serum bicarb is at 20. CPK is 1024. Axes are normal. Serum cortisol was 16.9. proBNP level was 1360. Lactic acid level was ordered and results are still pending for now. Troponins at 0.034. His previous echocardiogram showed moderate aortic stenosis and preserved LV function. He is currently on O2 at 3 L. Chest x-ray shows a triple-lumen catheter in the left subclavian. At the same time, the patient has increased pulm vascular markings and some early infiltration of the left perihilar area. On 12/17/2023, the patient is being seen for a follow-up. The patient is, comfortable on 5 L of oxygen by nasal cannula. Continues to have a congested cough. NG tube is in place and output is minimal. Hemodynamically, is improved and the patient is still on norepinephrine running at 0.16 mcg/kg/min and the patient is also physiologic dose of vasopressin. The patient is on half-normal saline at rate of 130 cc an hour. Overall fluid balance is +1.9 L over the past 24 hours. Blood pressures improved and the patient's urine output is excellent for now. Meanwhile, he is afebrile. Hemodynamically he is improving and the blood pressure has essentially improved. We should be able to wean down the pressors. Meanwhile, the patient chest x-ray showing cardiomegaly and the patient has worsening left lower lobe pulmonary filtrate. This could be atelectasis versus pneumonia. NG tube is in a good location. There is background cardiomegaly. The patient remains on IV Zosyn as a broad-spectrum antibiotic coverage for now. The patient is also on Lovenox 40 mg subcu for DVT prophylaxis. The white cell count is 7.6 with a hemoglobin of 7.6 and a platelet count of 398. BUN 38 with a creatinine of 1.2 and a sodium levels at 135 and potassium levels of 4.5. LFTs are essentially within normal limits. Bowel sounds are more active on today's evaluation. The patient remains n.p.o. for now. No other significant events overnight. 12/18/2023, I am seeing the patient for a follow-up. The patient is doing well. He is passing flatus. Had a bowel movement yesterday. Output from the G-tube is minimal. Based on that, I ended up removing the NG tube today. I noted some progressive worsening his oxygenation. Earlier this morning, the patient was placed on O2 at 15 L. The chest x-ray shows worsening in bilateral pulmonary filtrates. Based on that, I ordered a CAT scan of the chest to evaluate the patient's pulmonary findings and the CAT scan was completed this morning and it shows evidence of bilateral consolidation and opacities noted bilateral pleural effusion left more than right. Underlying pneumonia cannot be completely excluded. The patient's renal function has essentially normalized. The white cell count of 6.3 with a hemoglobin 7.6 and a platelet count of 366. The sodium is at 141, bicarb is at 27, BUN 22 with a creatinine of 0.9. LFTs are normal. The patient is awake and alert. He remains in atrial fibrillation. He was found to be slightly more tachycardic on today's evaluation. He remains on IV heparin for now. Antibiotic coverage is with IV Zosyn. On today's evaluation of 12/19/2023, the patient is being seen for a follow-up. Patient is currently on 3 days of oxygen by nasal cannula. Taking clear liquid diet. He is on half-normal saline which is running at 75 cc an hour. No nausea. No vomiting. Abdominal pain. No chest pain. He has been started on IV heparin regarding episode of atrial fibrillation. He is also on metoprolol 25 mg twice a day. His blood work shows a WBC count of 5.2 with a hemoglobin 7.8 and platelet count of 348. Sodium is at 138 with a potassium level of 4.3, bicarb is at 31, BUN is 18 with a creatinine of 0.7. LFTs are within normal limits. Awake and alert and communicating. No other significant events overnight. Patient evaluated today on 12/20/23, remains in the ICU, his nasogastric tube was discontinued by surgery, patient seems to be comfortable, not in distress, intermittently noted to have bradycardia and drop in his blood pressure, being addressed by cardiology. Patient denies being short of breath denies abdominal pain although his abdomen seems to be distended and no bowel sounds noted. Patient remains on Zosyn, his last bowel movement was 12/16. WBC count is 4.9 hemoglobin 7.8 electrolytes are normal renal profile is normal, his metoprolol was decreased by cardiology, because of his intermittent episodes of bradycardia and hypotension Patient was evaluated today 12/21/2023, remains in the ICU, tolerating liquid diet well, still had no bowel movement since the . Patient had a presentation of the ileus, urinary retention and bilateral hydronephrosis, acute kidney injury, hyponatremia, and history of CVA on Plavix, also had a history of recent hip fracture. And in addition to this he has moderate to severe aortic stenosis. Today the patient seems to be comfortable, not in any distress, on 2 L nasal cannula, hemoglobin is 7.5, otherwise the labs were unremarkable. Patient remains on Zosyn empirically, he does have abnormal chest x-ray showing bilateral airspace disease. Patient had another episode last night of bradycardia and according to the nurse he may have had an episode of obstructive sleep apnea associated with bradycardia. Hence I am recommending BiPAP tonight at 02/24/28%.WBC count is 4.5 hemoglobin 7.5 electrolytes are normal renal profile is normal Patient was seen today on 12/22/2023, remains in the ICU, remains on nasal cannula does not seem to be in distress he is on 3 L nasal cannula patient did not tolerate BiPAP well last night, and he kept removing it. Patient is on Eliquis is also on Zosyn, and the plan is to send the patient to 3 S. once a bed becomes available. Patient was seen by cardiology, addressing his arrhythmia and his blood pressure. Pulmonary vinson patient remains on diuretics, and he remains also on antibiotics. Improving, does not seem to be in any distress todayPatient even had a bowel movement today. WBC count is 5.8 hemoglobin 8.2 electrolytes are normal potassium is a bit low at 3.3 BUN is 9 creatinine 0.78. Patient was evaluated today on 12/23/2023, patient remains in the ICU as an overflow. He is on 2 L nasal cannula, patient is doing great, patient has been offered BiPAP for his obstructive sleep apnea but refuses to use it. He is being considered for possible transfer to rehab, and I will clear the patient if he is cleared by cardiology. In the meantime we will try to get the patient out of the ICU he has no GI issues, he is having bowel movements without any di fficulty. His abdomen is soft. Denies any shortness of breath or cough or wheezing. WBC count is 8.3 hemoglobin 8.7 basic metabolic profile is normal and renal profile is normal bicarb is 38. Patient was evaluated today on 12/24/2023, patient is doing great, feeling much better, patient is having normal bowel movements according to him, chest x-ray is showing improvement in his interstitial edema/pneumonia. Patient remains on diuretics he also remains on antibiotics. Findings on the chest x-ray are consistent with improving pneumonia/pulmonary edema. But not back to baseline. Continues to have abdominal distention findings based on the chest x-ray itself.WBC count 7.5 hemoglobin 8.8 electrolytes are normal renal profile is normal. Patient was seen today on 12/25/2023, continues to do well, does not seem to be in any distress, on 2 L nasal cannula with O2 saturation 100%. Chest x-ray showed dramatic improvement in his pneumonia/pulmonary edema, continues to improve steadily. GI symptoms have basically resolved, patient has no issues with bowel movements.WBC count is 6.9 hemoglobin 8.8 basic metabolic profile is normal bicarb is 39 renal profile is normal, C. difficile is negative Seen today on 12/26/2023, patient seems to be doing well, remains on 2 L nasal cannula, not in any distress.WBC count today is 14 nephrology no GI symptoms no pulmonary symptoms son is at bedside. WBC count is 6.4 hemoglobin 9.0 basic metabolic profile is normal and renal profile is normal bicarb is 37, last chest x-ray from 12/23 showed steady improvement in his bilateral pleural effusion and opacities in both lung Objective - Vital Signs Vital signs: Vital Signs Temp 97.5 F L 12/26/23 11:33 Pulse 62 12/26/23 11:42 Resp 20 12/26/23 11:33 BP 118/59 12/26/23 11:33 Pulse Ox 97 12/26/23 11:33 FiO2 28 12/23/23 04:00 Intake & Output 12/25/23 12/26/23 12/26/23 18:59 06:59 18:59 Intake Total 140 30 240 Output Total 2350 575 1075 Balance -2210 -545 -835 Weight 110.5 kg Intake: IV 20 30 Invasive Line 5 20 20 Invasive Line 6 10 Oral 120 240 Output: Urine 2350 575 1075 Other: Voiding Method Indwelling Catheter Indwelling Catheter Indwelling Catheter ABP, PAP, CO, CI - Last Documented Arterial Blood Pressure 104/33 - Exam General: Revealed 77-year-old white male in no distress.On 2L nasal cannula O2 saturation is 100% HEENT head normocephalic and atraumatic Neck is supple no JVD no goiter no lymphadenopathy no carotid bruit Chest examination: Diminished breath sound bilaterally no crackles rhonchi or w heezes Cardiac exam reveals regular heart sounds S1 and S2 no gallops 2/6 systolic murmur throughout the precordium Abdomen soft, nontender, no rebound no guarding, positive bowel sounds. Extremity exam reveals no edema no cyanosis or clubbing Neurological examination reveals no gross focal deficits Psychiatric: Normal mood affect and normal mental status examination. Skin: No rashes. - Labs CBC & Chem 7: 12/26/23 05:01 12/26/23 05:01 Labs: Abnormal Lab Results - Last 24 Hours (Table) 12/26/23 12/26/23 Range/Units 05:01 05:01 RBC 2.91 L (4.30-5.90) m/uL Hgb 9.0 L (13.0-17.5) gm/dL Hct 28.1 L (39.0-53.0) % Lymphocytes # 0.7 L (1.0-4.8) k/uL Sodium 134 L (137-145) mmol/L Chloride 96 L (98-107) mmol/L Carbon Dioxide 37 H (22-30) mmol/L Calcium 8.3 L (8.4-10.2) mg/dL Total Protein 5.5 L (6.3-8.2) g/dL Albumin 2.7 L (3.5-5.0) g/dL Assessment and Plan Assessment: Impression: Small bowel obstruction/ileus with secondary abdominal pain and distention, and clinically improved and NG tube was removed on 12/18/2023, resolved did not require any surgical intervention Acute kidney injury, recovered Acute hyperkalemia, resolved Moderately severe aortic stenosis Acute hypoxic respiratory failure, currently on 2 L of oxygen by nasal cannula. The patient has consolidation in the lung bases and bilateral pleural effusion left more than right. On diuretics he is also on antibiotics Hypotension, likely hypovolemic in nature in addition to presence of a moderately severe aortic stenosis which probably contributed to his significant drop in the blood pressure, recovered Recent hip fracture status post ORIF History of CVA maintained on Plavix with some residual left-sided weakness Hyperlipidemia Anemia of chronic disease Acute hyponatremia in the setting of obstructive uropathy and renal failure, improving Recommendation: Chest x-ray from 12/24/2023 was reviewed, showing improvement Continue Zosyn Continue Lasix Rehab placement is in progress Will continue to follow Time with Patient: Less than 30
[2023-12-27 06:45] LABS: Basophils % (A) 0 %; Eosinophils # (A) 0.2 k/uL (0-0.7); Eosinophils % (A) 3 %; HCT 30.1 % (39.0-53.0); HGB 9.3 gm/dL (13.0-17.5); Hypochromasia Marked; Lymphocytes # (A) 0.6 k/uL (1.0-4.8); Lymphocytes % (A) 8 %; MCH 30.8 pg (25.0-35.0); MCHC 30.7 g/dL (31.0-37.0); MCV 100.3 fL (80.0-100.0); Macrocytosis Slight; Monocytes # (A) 0.5 k/uL (0-1.0); Monocytes % (A) 6 %; Neutrophils % (A) 81 %; Platelet Count 380 k/uL (150-450); RBC 3.01 m/uL (4.30-5.90); RDW 14.1 % (11.5-15.5); WBC 7.4 k/uL (3.8-10.6)
[2023-12-27 07:03] LABS: ALT 37 U/L (4-49); AST 27 U/L (17-59); African American GFR (CKD) 89 (>60 ml/min/1.73 sqM); Albumin 2.9 g/dL (3.5-5.0); Alkaline Phosphatase 89 U/L (38-126); Blood Urea Nitrogen 20 mg/dL (9-20); Calcium 8.4 mg/dL (8.4-10.2); Chloride 95 mmol/L (98-107); Glucose 90 mg/dL (74-99); Non-African American GFR(CKD) 77 (>60 ml/min/1.73 sqM); Sodium 135 mmol/L (137-145); Total Bilirubin 0.3 mg/dL (0.2-1.3); Total Protein 5.7 g/dL (6.3-8.2)
[2023-12-27 07:04] LABS: Potassium 4.7 mmol/L (3.5-5.1)
[2023-12-27 07:53] LABS: Carbon Dioxide 36 mmol/L (22-30)
[2023-12-27 07:54] LABS: Anion Gap 3 mmol/L
--- NOTE | 2023-12-27 10:10 | P.PN ---
Subjective Progress Note Date: 12/27/23 HISTORY OF PRESENT ILLNESS: The patient is a 77-year-old male who presented with progressive fatigue ab dominal pain was found to have ileus, hyponatremia and acute renal injury cardiology consultation was requested because of atrial fibrillation. The patient was in the hospital earlier this month after a fall and a fractured hip, underwent surgery. His echocardiogram preoperatively showed a preserved systolic function with moderate aortic stenosis and a mean gradient of 21 mmHg. He continues to be on vasopressor but at a lower dose. He went in atrial fibrillation earlier this morning with controlled ventricular response, asymptomatic. He has an underlying right bundle branch block and no prior atrial fibrillation during his hospitalization. He has no significant peripheral edema. His urine output has been good. He continues to have an NG tube but he is having flatus and has underwent further evaluation with abdominal x-ray today. Patient has a prior history of stroke and was on Plavix in the past. He had significant hypotension on presentation and received intravenous fluid December 17: The patient is feeling well, he continues to be in atrial fibrillation with controlled ventricle response with episodes with a heart rate up to the 1 teens. He continues to be on IV heparin. He is off norepinephrine and his vasopressin is being weaned. He had a CT scan of the chest that showed consolidation and possible pneumonia. He is passing flatus and tolerating oral intake. His urinary output is good. December 18: The patient is back in sinus mechanism this morning with sinus bradycardia. He is feeling well overall, denies any chest discomfort, dizziness or palpitations. He is off vasopressors. He has no nausea or vomiting. His chest x-ray is suggestive of pneumonia and pleural effusion. Medications: Aspirin 81 mg daily, IV heparin, nicotine patch, metoprolol to tartrate 12.5 mg twice a day, Lipitor 40 mg daily 12/19 patient seen and examined. Patient denies any chest pain or shortness breath. Has not had a bowel movement per nursing. Heart rates in the 50s to 60s in sinus rhythm however drops down into the 40s at time with decrease in blood pressure is well. He is not actually symptomatic during these episodes. His metoprolol however was decreased however still having episodes and temporarily needed to go back on vasopressors. Hemoglobin borderline at 7.8.no hematochezia or melena and tolerating eliquis. 12/20 patient seen and examined. Patient denies any chest pain or pressure. He has been diuresis and states his shortness breath is improving. He is having sinus bradycardic episodes [place] of heart rates in the 30s which are temporary all during the sleeping hours. Per nursing monitoring his sleeping there is high suspicion of sleep apnea. He denies any history of syncope or lightheadedness. He is not on any rate control medications and his TSH was noted to be normal this admission. 12/21 He wore BiPAP overnight without any further significant bradycardic episodes. Therefore bradycardic episodes appear more related to sleep apnea. He did have recurrent episode of short A. fib for a few minutes which was asymptomatic with heart rates up to the 150s and 160s. Came back down to normal sinus rhythm. Denies any chest pain or pressure currently. 12/22 Patient seen and examined. Patient denies any chest pain or pressure. Continues to be diuresis with normal creatinine. Remains in sinus rhythm. We attempted flecainide however patient having recurrent episodes of A. fib and therefore switched to amiodarone and has remained in sinus rhythm. We will transition to oral amiodarone. 12/24/2023 Patient examined this morning at the bedside. Patient currently denies chest pain or pressure. He denies shortness of breath. He denies dizziness or lightheadedness. He is tolerating oral intake without nausea or vomiting. Telemetry reveals sinus mechanism with a heart rate in the 50s this morning. 12/25/2023 Patient is doing good. He denies any chest pain or shortness of breath. Labs show stable hemoglobin 8.8, creatinine 0.94, sodium 134, potassium 4.5. Telemetry shows sinus rhythm with heart rates 5060s. Patient wants to go home. 12/26/2023 OOB to chair. No chest pain or pressure. No shortness of breath, dizziness. HR controlled. Labs stable. December 27, 2023 BP 109/57, heart rate 64, regular pulses, appears to be in sinus rhythm, Labs, hemoglobin 9.3, platelets CAD, sodium 135, bicarb 36, BUN 20, creatinine 0.9 Overall patient is doing well. He denies any chest pain chest pressure, comfortably lying in the bed. PHYSICAL EXAM: VITAL SIGNS: Reviewed. GENERAL: Well-developed in no acute distress. NECK: Supple. No JVD or thyromegaly LUNGS: Respirations even and unlabored. Lungs essentially clear to auscultation bilaterally. HEART: Regular rate and rhythm. S1 and S2 heard. Systolic murmur EXTREMITIES: Normal range of motion. No clubbing or cyanosis. Peripheral pulses intact. Bilateral lower extremity edema ASSESSMENT: 1. Small bowel obstruction, resolved 2. Atrial fibrillation, new onset, paroxysmal, back in sinus mechanism 3. Acute renal injury, resolved 4. Anemia 5. History of stroke 6. Moderate aortic stenosis 7. asymptomatic sinus bradycardia likely exacerbated by suspected sleep apnea and increased vagal tone while sleeping PLAN: Continue current dose of oral amiodarone. Decrease to 200 mg twice a day after 1 week, then 200 mg daily. Continue anticoagulation with Eliquis Continue metoprolol 12.5 mg daily Transition to p.o. diuretic Bumex 1 mg p.o. daily Increase activities as tolerated Continue telemetry monitoring At this time patient is cleared from cardiovascular standpoint. Cardiology team will sign off. Please reconsult us in case of any questions. Thank you for the consultation Objective - Vital Signs Vital signs: Vital Signs Temp 97.5 F L 12/27/23 09:09 Pulse 64 12/27/23 09:09 Resp 18 12/27/23 09:09 BP 109/57 12/27/23 09:09 Pulse Ox 98 12/27/23 09:09 FiO2 28 12/23/23 04:00 Intake & Output 12/26/23 12/27/23 12/27/23 18:59 06:59 18:59 Intake Total 960 20 250 Output Total 1625 625 Balance -665 -605 250 Weight 88 kg Intake: IV 240 20 10 0.9 40 Invasive Line 6 20 10 Piperacillin-Tazobactam 3 200 .375 gm In Sodium Chloride 0.9% 100 ml @ 25 mls/hr IVPB Q8H [facility] Rx#: [id number] Oral 720 240 Output: Urine 1625 625 Other: Voiding Method Indwelling Catheter Indwelling Catheter ABP, PAP, CO, CI - Last Documented Arterial Blood Pressure 104/33 - Labs CBC & Chem 7: 12/27/23 06:00 12/27/23 06:00 Labs: Abnormal Lab Results - Last 24 Hours (Table) 12/27/23 12/27/23 Range/Units 06:00 06:00 RBC 3.01 L (4.30-5.90) m/uL Hgb 9.3 L (13.0-17.5) gm/dL Hct 30.1 L (39.0-53.0) % MCV 100.3 H (80.0-100.0) fL MCHC 30.7 L (31.0-37.0) g/dL Lymphocytes # 0.6 L (1.0-4.8) k/uL Sodium 135 L (137-145) mmol/L Chloride 95 L (98-107) mmol/L Carbon Dioxide 36 H (22-30) mmol/L Total Protein 5.7 L (6.3-8.2) g/dL Albumin 2.9 L (3.5-5.0) g/dL
--- NOTE | 2023-12-27 11:44 | P.PN ---
Subjective Progress Note Date: 12/27/23 CHIEF COMPLAINT: Abdominal pain HISTORY OF PRESENT ILLNESS: Patient remains on cardiac floor. He has not had any bowel movements for a couple of days. Lactulose and Colace have been discontinued due to patient having multiple stools a few days ago. He is having flatus. Tolerating regular diet. Denies any nausea or vomiting. Afebrile. WBC 7.4 Hgb 9.3 sodium 135 potassium 4.7 creatinine 0.96 PHYSICAL EXAM: VITAL SIGNS: Reviewed GENERAL: no acute distress HEENT: No sclera icterus. Extraocular movements grossly intact. Moist buccal mucosa. Head is atraumatic, normocephalic. Hears conversational speech. No nasal drainage. NECK: Supple without lymphadenopathy. CHEST: Non-labored respirations and equal bilateral excursions. CARDIOVASCULAR: Palpable 2+ radial pulses. ABDOMEN: Soft. Nondistended. Nontender. MUSCULOSKELETAL: No clubbing or cyanosis. NEUROLOGIC: No focal or lateralizing signs. Cranial nerves II through XII grossly intact. SKIN: Well perfused. Good skin turgor. ASSESSMENT: 1. Ileus resolved 2. Urinary retention and bilateral hydronephrosis status post Rich catheter placement 3. Acute kidney injury improved 4. Hyponatremia improved 5. Hypokalemia improved 6. History of CVAs 7. Recent hip fracture status postsurgical repair 8. Moderate to severe aortic stenosis PLAN: -Continue regular diet -MiraLAX added for bowel regimen -Increase activity level Physician Officer Captain note has been reviewed by physician. Signing provider agrees with the documented findings, assessment, and plan of care. Objective - Vital Signs Vital signs: Vital Signs Temp 97.7 F 12/27/23 11:23 Pulse 68 12/27/23 11:33 Resp 18 12/27/23 11:23 BP 122/66 12/27/23 11:23 Pulse Ox 100 12/27/23 11:23 FiO2 28 12/23/23 04:00 Intake & Output 12/26/23 12/27/23 12/27/23 18:59 06:59 18:59 Intake Total 960 20 250 Output Total 1026 085 1964 Balance -244 -131 -462 Weight 88 kg Intake: IV 240 20 10 0.9 40 Invasive Line 6 20 10 Piperacillin-Tazobactam 3 200 .375 gm In Sodium Chloride 0.9% 100 ml @ 25 mls/hr IVPB Q8H [facility] Rx#: [id number] Oral 720 240 Output: Urine 2124 795 9689 Uretheral (Rich) 1100 Other: Voiding Method Indwelling Catheter Indwelling Catheter ABP, PAP, CO, CI - Last Documented Arterial Blood Pressure 104/33 - Labs CBC & Chem 7: 12/27/23 06:00 12/27/23 06:00 Labs: Abnormal Lab Results - Last 24 Hours (Table) 12/27/23 12/27/23 Range/Units 06:00 06:00 RBC 3.01 L (4.30-5.90) m/uL Hgb 9.3 L (13.0-17.5) gm/dL Hct 30.1 L (39.0-53.0) % MCV 100.3 H (80.0-100.0) fL MCHC 30.7 L (31.0-37.0) g/dL Lymphocytes # 0.6 L (1.0-4.8) k/uL Sodium 135 L (137-145) mmol/L Chloride 95 L (98-107) mmol/L Carbon Dioxide 36 H (22-30) mmol/L Total Protein 5.7 L (6.3-8.2) g/dL Albumin 2.9 L (3.5-5.0) g/dL
[2023-12-27] MEDS: TAMSULOSIN 0.4 MG CAP.ER.24H PO SCH (11:53)
[2023-12-27] MEDS: BUMETANIDE 1 MG TAB PO SCH (11:53)
[2023-12-27] MEDS: polyethylene glycoL 3350 17 GM POWD.PACK PO SCH (11:54)
--- NOTE | 2023-12-27 13:24 | P.PN ---
Subjective Progress Note Date: 12/27/23 Principal diagnosis: Acute kidney injury. 77-year-old male patient, presented to the hospital because of abdominal pain, nausea, emesis, abdominal distention along with weakness, and hypotension. He also noted diminished urine output. His last bowel movement was more than 2 da ys ago. He is not passing any flatus. He was not treated secondary for rehabilitation following a fall with a fracture requiring surgery. In the emergency, the patient was found to have an acute on top of chronic kidney injury. Rich catheter was inserted and the patient immediately produced around 1 L of urine output. Patient was also given an NG tube and a total of 2.5 L of gastric material was aspirated immediately. CAT scan of the abdomen and pelvis was done in the emergency and the patient was found to have fluid-filled esophagus with dilated gas and fluid-filled stomach. Patient also had dilated small bowel with air fluid levels. The distal small bowel appeared collapsed and there was no clear focal transition identified. No focal bowel wall thickening or inflammatory changes. The small bowel measures up to 4.3 cm in size. Gas and stool was present in the large bowel. Appendix was normal. No evidence of interval pneumoperitoneum. Small bilateral pleural effusions along with compressive atelectasis in the lung bases were noted. Blood work showed an acute on top of chronic kidney injury. The patient's creatinine was up to 4.23 with a BUN of 83 and his sodium was 122 with a potassium level of 6 and a chloride was 79 with a bicarb level of 32. Normal LFTs. proBNP level is 468. Amylase and lipase are within normal limits. The white cell count of 14.5 with a hemoglobin 10.1 and a platelet of 511. Coagulation profile is within normal limits. Chest x-ray showed cardiomegaly with mild pulm vascular congestion. For now, the patient is being resuscitated with IV fluids. He is on normal saline at rate of 100 cc an hour. He is also on norepinephrine which is running at 0.15 mcg/kg/min. He is on oxygen at 3 L/min nasal cannula. Triple-lumen catheter was established and the intensive care unit along with an arterial line. General surgery is on the case. Nephrology is also on the case. 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 He is an ex-smoker. 12/16/2023, the patient is being seen for a follow-up. The patient is much more awake compared to yesterday. Noted the patient was aggressive resuscitative IV fluids and over the past 24 hours, the patient received a total of 6 L of IV fluids. Currently on normal saline at rate of 100 cc an hour. The patient required high doses of pressors overnight and norepinephrine was as high as 0.5 mcg/kg/min. Vasopressin was added and currently norepinephrine is down to 0.32 mcg/kg/min. He is much more awake and alert and is communicating. He is on 3 L of O2 nasal cannula. NG tube is still in place and the total amount of output is given in the order of 3.6 L since the tube was placed. Urine output is improving and the patient is producing around 100 cc an hour. No fever. No chills. White cell count 11.7 with hemoglobin 8.8 and a platelet count of 578. Sodium is at 130, BUN 63 with a creatinine of 2.7. The potassium levels of 5.4 and a serum bicarb is at 20. CPK is 1024. Axes are normal. Serum cortisol was 16.9. proBNP level was 1360. Lactic acid level was ordered and results are still pending for now. Troponins at 0.034. His previous echocardiogram showed moderate aortic stenosis and preserved LV function. He is currently on O2 at 3 L. Chest x-ray shows a triple-lumen catheter in the left subclavian. At the same time, the patient has increased pulm vascular markings and some early infiltration of the left perihilar area. On 12/17/2023, the patient is being seen for a follow-up. The patient is, comfortable on 5 L of oxygen by nasal cannula. Continues to have a congested cough. NG tube is in place and output is minimal. Hemodynamically, is improved and the patient is still on norepinephrine running at 0.16 mcg/kg/min and the patient is also physiologic dose of vasopressin. The patient is on half-normal saline at rate of 130 cc an hour. Overall fluid balance is +1.9 L over the past 24 hours. Blood pressures improved and the patient's urine output is excellent for now. Meanwhile, he is afebrile. Hemodynamically he is improving and the blood pressure has essentially improved. We should be able to wean down the pressors. Meanwhile, the patient chest x-ray showing cardiomegaly and the patient has worsening left lower lobe pulmonary filtrate. This could be atelectasis versus pneumonia. NG tube is in a good location. There is background cardiomegaly. The patient remains on IV Zosyn as a broad-spectrum antibiotic coverage for now. The patient is also on Lovenox 40 mg subcu for DVT prophylaxis. The white cell count is 7.6 with a hemoglobin of 7.6 and a platelet count of 398. BUN 38 with a creatinine of 1.2 and a sodium levels at 135 and potassium levels of 4.5. LFTs are essentially within normal limits. Bowel sounds are more active on today's evaluation. The patient remains n.p.o. for now. No other significant events overnight. 12/18/2023, I am seeing the patient for a follow-up. The patient is doing well. He is passing flatus. Had a bowel movement yesterday. Output from the G-tube is minimal. Based on that, I ended up removing the NG tube today. I noted some progressive worsening his oxygenation. Earlier this morning, the patient was placed on O2 at 15 L. The chest x-ray shows worsening in bilateral pulmonary filtrates. Based on that, I ordered a CAT scan of the chest to evaluate the patient's pulmonary findings and the CAT scan was completed this morning and it shows evidence of bilateral consolidation and opacities noted bilateral pleural effusion left more than right. Underlying pneumonia cannot be completely excluded. The patient's renal function has essentially normalized. The white cell count of 6.3 with a hemoglobin 7.6 and a platelet count of 366. The sodium is at 141, bicarb is at 27, BUN 22 with a creatinine of 0.9. LFTs are normal. The patient is awake and alert. He remains in atrial fibrillation. He was found to be slightly more tachycardic on today's evaluation. He remains on IV heparin for now. Antibiotic coverage is with IV Zosyn. On today's evaluation of 12/19/2023, the patient is being seen for a follow-up. Patient is currently on 3 days of oxygen by nasal cannula. Taking clear liquid diet. He is on half-normal saline which is running at 75 cc an hour. No nausea. No vomiting. Abdominal pain. No chest pain. He has been started on IV heparin regarding episode of atrial fibrillation. He is also on metoprolol 25 mg twice a day. His blood work shows a WBC count of 5.2 with a hemoglobin 7.8 and platelet count of 348. Sodium is at 138 with a potassium level of 4.3, bicarb is at 31, BUN is 18 with a creatinine of 0.7. LFTs are within normal limits. Awake and alert and communicating. No other significant events overnight. Patient evaluated today on 12/20/23, remains in the ICU, his nasogastric tube was discontinued by surgery, patient seems to be comfortable, not in distress, intermittently noted to have bradycardia and drop in his blood pressure, being addressed by cardiology. Patient denies being short of breath denies abdominal pain although his abdomen seems to be distended and no bowel sounds noted. Patient remains on Zosyn, his last bowel movement was 12/16. WBC count is 4.9 hemoglobin 7.8 electrolytes are normal renal profile is normal, his metoprolol was decreased by cardiology, because of his intermittent episodes of bradycardia and hypotension Patient was evaluated today 12/21/2023, remains in the ICU, tolerating liquid diet well, still had no bowel movement since the . Patient had a presentation of the ileus, urinary retention and bilateral hydronephrosis, acute kidney injury, hyponatremia, and history of CVA on Plavix, also had a history of recent hip fracture. And in addition to this he has moderate to severe aortic stenosis. Today the patient seems to be comfortable, not in any distress, on 2 L nasal cannula, hemoglobin is 7.5, otherwise the labs were unremarkable. Patient remains on Zosyn empirically, he does have abnormal chest x-ray showing bilateral airspace disease. Patient had another episode last night of bradycardia and according to the nurse he may have had an episode of obstructive sleep apnea associated with bradycardia. Hence I am recommending BiPAP tonight at 02/24/28%.WBC count is 4.5 hemoglobin 7.5 electrolytes are normal renal profile is normal Patient was seen today on 12/22/2023, remains in the ICU, remains on nasal cannul a does not seem to be in distress he is on 3 L nasal cannula patient did not tolerate BiPAP well last night, and he kept removing it. Patient is on Eliquis is also on Zosyn, and the plan is to send the patient to 3 [address]. once a bed becomes available. Patient was seen by cardiology, addressing his arrhythmia and his blood pressure. Pulmonary vinson patient remains on diuretics, and he remains also on antibiotics. Improving, does not seem to be in any distress todayPatient even had a bowel movement today. WBC count is 5.8 hemoglobin 8.2 electrolytes are normal potassium is a bit low at 3.3 BUN is 9 creatinine 0.78. Patient was evaluated today on 12/23/2023, patient remains in the ICU as an ove rflow. He is on 2 L nasal cannula, patient is doing great, patient has been offered BiPAP for his obstructive sleep apnea but refuses to use it. He is being considered for possible transfer to rehab, and I will clear the patient if he is cleared by cardiology. In the meantime we will try to get the patient out of the ICU he has no GI issues, he is having bowel movements without any difficulty. His abdomen is soft. Denies any shortness of breath or cough or wheezing. WBC count is 8.3 hemoglobin 8.7 basic metabolic profile is normal and renal profile is normal bicarb is 38. Patient was evaluated today on 12/24/2023, patient is doing great, feeling much better, patient is having normal bowel movements according to him, chest x-ray is showing improvement in his interstitial edema/pneumonia. Patient remains on diuretics he also remains on antibiotics. Findings on the chest x-ray are c onsistent with improving pneumonia/pulmonary edema. But not back to baseline. Continues to have abdominal distention findings based on the chest x-ray itself.WBC count 7.5 hemoglobin 8.8 electrolytes are normal renal profile is normal. Patient was seen today on 12/25/2023, continues to do well, does not seem to be in any distress, on 2 L nasal cannula with O2 saturation 100%. Chest x-ray showed dramatic improvement in his pneumonia/pulmonary edema, continues to improve steadily. GI symptoms have basically resolved, patient has no issues with bowel movements.WBC count is 6.9 hemoglobin 8.8 basic metabolic profile is normal bicarb is 39 renal profile is normal, C. difficile is negative Seen today on 12/26/2023, patient seems to be doing well, remains on 2 L nasal cannula, not in any distress.WBC count today is 14 nephrology no GI symptoms no pulmonary symptoms son is at bedside. WBC count is 6.4 hemoglobin 9.0 basic metabolic profile is normal and renal profile is normal bicarb is 37, last chest x-ray from 12/23 showed steady improvement in his bilateral pleural effusion and opacities in both lung Progress note dated December 27, 2023. 78-year-old male seen today in room 354. He is currently on 2 L. Saturations are 98%. He is getting saline at 10 cc an hour. Current labs include a white count of 7.4, hemoglobin 9.3, hematocrit 30.1, and a normal platelet count. Sodium 135, potassium 4.7, chloride 95, CO2 36, BUN 20, creatinine 0.96. Albumin is 2.9. Objective - Vital Signs Vital signs: Vital Signs Temp 97.7 F 12/27/23 11:23 Pulse 72 12/27/23 11:45 Resp 18 12/27/23 11:23 BP 122/66 12/27/23 11:23 Pulse Ox 100 12/27/23 11:23 FiO2 28 12/23/23 04:00 Intake & Output 12/26/23 12/27/23 12/27/23 18:59 06:59 18:59 Intake Total 960 20 250 Output Total 4585 412 9622 Balance -665 605 -850 Weight 88 kg Intake: IV 240 20 10 0.9 40 Invasive Line 6 20 10 Piperacillin-Tazobactam 3 200 .375 gm In Sodium Chloride 0.9% 100 ml @ 25 mls/hr IVPB Q8H [facility] Rx#: [id number] Oral 720 240 Output: Urine 7995 660 5574 Uretheral (Rich) 1100 Other: Voiding Method Indwelling Catheter Indwelling Catheter ABP, PAP, CO, CI - Last Documented Arterial Blood Pressure 104/33 - Exam No acute distress, oriented 3. Currently on 2 L. HEENT examination is grossly unremarkable. Mucous membranes are moist. No oral lesions. Neck supple. Full range of motion. No adenopathy thyromegaly or neck vein distention. Cardiovascular examination reveals regular rhythm rate. S1-S2 normal. No S3 or S4. Grade 2/6 systolic murmur noted. Lungs reveal scattered rhonchi. No wheezes or crackles. Breath sounds are equal. Saturations are 98%. Abdomen soft bowel sounds are heard. No masses or tenderness. Extremities are intact. No cyanosis clubbing or edema. Skin is without rash or lesion. Neurologic examination is brief but nonfocal. - Labs CBC & Chem 7: 12/27/23 06:00 12/27/23 06:00 Labs: Abnormal Lab Results - Last 24 Hours (Table) 12/27/23 12/27/23 Range/Units 06:00 06:00 RBC 3.01 L (4.30-5.90) m/uL Hgb 9.3 L (13.0-17.5) gm/dL Hct 30.1 L (39.0-53.0) % MCV 100.3 H (80.0-100.0) fL MCHC 30.7 L (31.0-37.0) g/dL Lymphocytes # 0.6 L (1.0-4.8) k/uL Sodium 135 L (137-145) mmol/L Chloride 95 L (98-107) mmol/L Carbon Dioxide 36 H (22-30) mmol/L Total Protein 5.7 L (6.3-8.2) g/dL Albumin 2.9 L (3.5-5.0) g/dL Assessment and Plan Assessment: Small bowel obstruction/ileus, secondary abdominal pain and distention, clinically improved. Acute kidney injury, recovered. Hyperkalemia, resolved. Moderately severe aortic stenosis. Acute hypoxemic respiratory failure. Hypotension, resolved. Recent hip fracture, status post ORIF. History of CVA. Hyperlipidemia. Anemia of chronic disease. Plan: Plan dated December 27, 2023. The patient shows ongoing improvement. Chest x-ray is much improved. 2 L saturation is 98%. Labs, x-rays, medications are reviewed. The patient continues on Lasix. Discharge planning underway. The patient will likely be discharged to a rehab facility. We will continue to follow make recommendations along the way. Time with Patient: Less than 30
--- NOTE | 2023-12-27 18:50 | P.PN ---
Subjective Progress Note Date: 12/27/23 Chevy French, is a 77-year-old male who presented to [facility] emergency room due to abdominal pain and generalized weakness and hypotension. Patient was recently admitted to [facility] after sustaining a fall and having femur fracture he underwent surgery and was transferred to care home for rehab. He was evaluated in the emergency room vital examination on presentation revealed a temperature of 98.7 pulse 80 respiration 30 blood pressure 80/53 pulse ox 97% on 5 L nasal cannula Laboratory data revealed a white blood count of 14.5 hemoglobin 10.1 platelet count 511 sodium 122 potassium 6.0 chloride 79 BUN 83 creatinine 4.23 Testing in the emergency room revealed chest x-ray revealed low lung volumes with generalized hazy appearance which could represent atelectasis versus pulmonary edema, CT scan of the abdomen revealed dilated small bowel loops and stomach without clear focal transition point, and significantly distended urinary bladder with bilateral hydronephrosis. Patient was admitted to medical floor for further evaluation and treatment On 12/16/2023 patient was seen and examined in the ICU, he is alert and oriented in no distress, he is maintained on blood pressure support, triple lumen and arterial line inserted, patient is followed by critical care, he denies any chest pain, or shortness of breath, munoz catheter inserted yesterday, kidney function improving. On 12/17/2023 patient is alert and oriented. Patient remains in the ICU pressure supporting medication. Creatinine improving to 1.28 bun 38 potassium 4.8 sodium 135.current vital signs temp 98.1, heart rate 60, respiratory rate 20, blood pressure 1 today knee 6/41 with pulse ox of96% on 4 L. Patient remains with NG tube nothing by mouth. On 12/18/2023 patient was seen and examined in the ICU he is alert and oriented x 3 in no apparent distress, there is no fever or chills no headache or dizziness no chest pain no shortness of breath no cough no nausea or vomiting no abdominal pain no diarrhea no blood in the stools, patient is passing gas and having bowel movements, no burning with urination no frequency or urgency and no hematuria. Yesterday patient developed atrial fibrillation with rapid ventricular response, he was seen by cardiology and was started on IV heparin. On 12/19/2023 patient was seen and examined in the ICU, he is alert and oriented x 3 in no distress, there is no fever or chills no headache or dizziness no chest pain no shortness of breath no cough no nausea or vomiting no abdominal pain no diarrhea and no urinary symptoms. Patient still has Munoz catheter in. CT scan of the chest done yesterday revealed bilateral consolidative opacities and pleural effusion left greater than right. Patient is maintained on IV Zosyn, he is also maintained on IV heparin for new onset atrial fibrillation, pulmonary and cardiology are following. On 12/20/2023 patient was seen and examined in the ICU he is alert and oriented x 3 in no apparent distress there is no fever or chills no headache or dizziness no chest pain, he is still complaining of cough and shortness of breath with any activity there is no nausea or vomiting no abdominal pain no diarrhea no blood in the stools, Munoz catheter is still in. Vital exam reveals a temperature of 97.7 pulse 57 respiration 13 blood pressure 117/59 pulse ox 98% on 3 L nasal cannula. White blood count 4.9 hemoglobin 7.8 platelet count 328 BUN 14 creatinine 0.74 On 12/21/2023 patient remains in the intensive care unit patient is alert and oriented x 3. Current vital signs temp 97.5, heart 75, respiratory rate 18, blood pressure 133/68 with a pulse ox of 99% on 2 L. White blood cell 4.5, hemoglobin 7.5, creatinine 0.64 and bun 12. Patient remains short of breath wit h cough. Patient denies any nausea vomiting or diarrhea. Patient denies any urinary burning or frequency On 12/22/2023 patient is alert and oriented x 3 currently sitting up in chair. Patient maintained on full liquid diet. Patient having episodes of A-fib with RVR has been started on amiodarone per cardiology. Patient remains on IV Zosyn. Current vital signs temp 98.4, heart rate 122, respiratory rate 26, blood pressure 115/73 with pulse ox 100% on 3 L nasal cannula. Patient denies chest pain or shortness of breath. Patient denies nausea vomiting or diarrhea. Patient denies any urinary burning or frequency On 12/23/2023 patient was seen and examined in the ICU, he is alert and oriented x 3 in no distress, there is no fever or chills no headache or dizziness no chest pain no shortness of breath no cough no nausea or vomiting no abdominal pain no diarrhea and no urinary symptoms. Patient still has Munoz catheter in. CT scan of the chest done yesterday revealed bilateral consolidative opacities and pleural effusion left greater than right. Patient is still maintained on IV Zosyn, he is also maintained on Eliquis for new onset atrial fibrillation, pulmonary and cardiology are following. On 12/24/2023 patient has been transferred out of the ICU to [facility]. Patient is alert and oriented x 3. Patient was started on p.o. amiodarone. Patient also started on IV Lasix per cardiology. Patient remains on IV Zosyn. Current vital signs temp 97.8, heart rate 64, respiratory rate 17, blood pressure 107/66 with a pulse ox of 100% on 2 L. Patient denies chest pain or shortness of breath. Patient denies nausea vomiting or diarrhea. Patient denies any urinary burning or frequency On 12/25/2023 patient was seen and examined on the telemetry floor he is alert and oriented x 3 in no apparent distress, he is sitting up in a chair, he denies any complaints at this time, he had multiple episodes of diarrhea yesterday, C. difficile EIA testing was negative, lactulose was discontinued, and patient denies any new episodes of diarrhea today, otherwise patient denies any complaints there is no fever or chills no headache or dizziness no chest pain no shortness of breath no cough no nausea or vomiting no abdominal pain no diarrhea and no urinary symptoms. On 12/26/2023 patient is alert and oriented x 3 currently sitting up in chair. Patient reports improvement with abdominal discomfort no further diarrhea. Patient remains on IV diuretics. Discharge planning to [facility]. Current vital signs temp 97.8, heart rate 64, respiratory rate 18, blood pressure 103/54 with a pulse ox of 97% on 2 L. Patient denies chest pain or shortness of breath. Patient denies nausea vomiting or diarrhea. Patient denies any urinary burning or frequency On 12/27/2023 patient was seen and examined on the telemetry floor he is alert and oriented x 3 in no apparent distress he denies any symptoms at this time there is no fever or chills no headache or dizziness no chest pain no shortness of breath no cough no nausea or vomiting no abdominal pain no diarrhea no blood in the stools no burning with urination no frequency or urgency and no hematuria. Patient is improving gradually he is being switched to oral medications, possible transfer to the care home in the next 1 to 2 days. Objective - Vital Signs Vital signs: Vital Signs Temp 97.4 F L 12/27/23 15:35 Pulse 68 12/27/23 15:49 Resp 18 12/27/23 15:35 BP 119/63 12/27/23 15:35 Pulse Ox 98 12/27/23 15:35 FiO2 28 12/23/23 04:00 Intake & Output 12/26/23 12/27/23 12/27/23 18:59 06:59 18:59 Intake Total 960 20 500 Output Total 1351 757 9215 Balance -684 -255 -1350 Weight 88 kg Intake: IV 240 20 20 0.9 40 Invasive Line 6 20 20 Piperacillin-Tazobactam 3 200 .375 gm In Sodium Chloride 0.9% 100 ml @ 25 mls/hr IVPB Q8H [facility] Rx#: [id number] Oral 720 480 Output: Urine 6262 193 1428 Uretheral (Munoz) 1850 Other: Voiding Method Indwelling Catheter Indwelling Catheter Indwelling Catheter ABP, PAP, CO, CI - Last Documented Arterial Blood Pressure 104/33 - Exam In general patient is alert and oriented x 3 in no distress HEENT head normocephalic and atraumatic Neck is supple no JVD no goiter no lymphadenopathy no carotid bruit Chest examination is clear to auscultation no crackles no wheezing Cardiac exam reveals regular heart sounds S1 and S2 no gallops no murmurs Abdomen is soft with mild diffuse tenderness no organomegaly no palpable masses with sluggish bowel sounds Extremity exam reveals no edema no cyanosis or clubbing Neurological examination reveals no gross focal deficits - Labs CBC & Chem 7: 12/27/23 06:00 12/27/23 06:00 Labs: Abnormal Lab Results - Last 24 Hours (Table) 12/27/23 12/27/23 Range/Units 06:00 06:00 RBC 3.01 L (4.30-5.90) m/uL Hgb 9.3 L (13.0-17.5) gm/dL Hct 30.1 L (39.0-53.0) % MCV 100.3 H (80.0-100.0) fL MCHC 30.7 L (31.0-37.0) g/dL Lymphocytes # 0.6 L (1.0-4.8) k/uL Sodium 135 L (137-145) mmol/L Chloride 95 L (98-107) mmol/L Carbon Dioxide 36 H (22-30) mmol/L Total Protein 5.7 L (6.3-8.2) g/dL Albumin 2.9 L (3.5-5.0) g/dL Assessment and Plan Plan: Abdominal pain Dilated small bowels with possible ileus versus partial small bowel obstruction Urinary retention Hypotension Severe hyponatremia Acute kidney injury Electrolyte imbalance with severe hyperkalemia Leukocytosis Recent fall with right femur fracture with surgical repair New onset atrial fibrillation with rapid ventricular response during this admission At this time patient is admitted to medical floor Munoz catheter was inserted in the emergency room He was started on IV fluid Nephrology and urology consultation were requested For DVT prophylaxis subcu Bandar Will follow closely
[2023-12-28 06:35] LABS: Basophils % (A) 0 %; Eosinophils # (A) 0.2 k/uL (0-0.7); Eosinophils % (A) 3 %; HCT 31.2 % (39.0-53.0); HGB 9.4 gm/dL (13.0-17.5); Hypochromasia Marked; Lymphocytes # (A) 0.9 k/uL (1.0-4.8); Lymphocytes % (A) 10 %; MCH 30.1 pg (25.0-35.0); MCHC 30.3 g/dL (31.0-37.0); MCV 99.3 fL (80.0-100.0); Macrocytosis Slight; Mean Platelet Volume 6.8; Monocytes # (A) 0.5 k/uL (0-1.0); Monocytes % (A) 6 %; Neutrophils # (A) 6.6 k/uL (1.3-7.7); Neutrophils % (A) 79 %; Platelet Count 436 k/uL (150-450); RBC 3.14 m/uL (4.30-5.90); RDW 14.1 % (11.5-15.5); WBC 8.3 k/uL (3.8-10.6)
[2023-12-28 06:48] LABS: ALT 36 U/L (4-49); AST 31 U/L (17-59); African American GFR (CKD) >90 (>60 ml/min/1.73 sqM); Albumin 3.3 g/dL (3.5-5.0); Alkaline Phosphatase 100 U/L (38-126); Anion Gap 2 mmol/L; Blood Urea Nitrogen 21 mg/dL (9-20); Calcium 8.9 mg/dL (8.4-10.2); Carbon Dioxide 39 mmol/L (22-30); Chloride 97 mmol/L (98-107); Glucose 95 mg/dL (74-99); Non-African American GFR(CKD) 82 (>60 ml/min/1.73 sqM); Potassium 4.2 mmol/L (3.5-5.1); Sodium 138 mmol/L (137-145); Total Bilirubin 0.4 mg/dL (0.2-1.3); Total Protein 6.3 g/dL (6.3-8.2)
[2023-12-28] MEDS: ONDANSETRON 4 MG/2 ML VIAL IVP PRN (07:06)
--- NOTE | 2023-12-28 09:27 | XR ---
EXAMINATION TYPE: XR abdomen 2V DATE OF EXAM: 12/28/2023 HISTORY: Pain. Technique: 2 views of the abdomen are submitted. Comparison: None. Findings: There is no convincing evidence of pneumoperitoneum. The Bowel gas pattern is nonspecific and nonobstructive. No sizable air-fluid levels are seen. No mass effects are noted. No renal calcifications are identified. IMPRESSION: 1. Nonspecific nonobstructive bowel gas pattern [facility], , 12/28/2023 9:24 AM
--- NOTE | 2023-12-28 09:42 | P.PN ---
Subjective Progress Note Date: 12/28/23 Chevy French, is a 77-year-old male who presented to [facility] emergency room due to abdominal pain and generalized weakness and hypotension. Patient was recently admitted to [facility] after sustaining a fall and having femur fracture he underwent surgery and was [facility]. He was evaluated in the emergency room vital examination on presentation revealed a temperature of 98.7 pulse 80 respiration 30 blood pressure 80/53 pulse ox 97% on 5 L nasal cannula Laboratory data revealed a white blood count of 14.5 hemoglobin 10.1 platelet count 511 sodium 122 potassium 6.0 chloride 79 BUN 83 creatinine 4.23 Testing in the emergency room revealed chest x-ray revealed low lung volumes with generalized hazy appearance which could represent atelectasis versus pulmonary edema, CT scan of the abdomen revealed dilated small bowel loops and stomach without clear focal transition point, and significantly distended urinary bladder with bilateral hydronephrosis. Patient was admitted to medical floor for further evaluation and treatment On 12/16/2023 patient was seen and examined in the ICU, he is alert and oriented in no distress, he is maintained on blood pressure support, triple lumen and arterial line inserted, patient is followed by critical care, he denies any chest pain, or shortness of breath, munoz catheter inserted yesterday, kidney function improving. On 12/17/2023 patient is alert and oriented. Patient remains in the ICU pressure supporting medication. Creatinine improving to 1.28 bun 38 potassium 4.8 sodium 135.current vital signs temp 98.1, heart rate 60, respiratory rate 20, blood pressure 1 today knee 6/41 with pulse ox of96% on 4 L. Patient remains with NG tube nothing by mouth. On 12/18/2023 patient was seen and examined in the ICU he is alert and oriented x 3 in no apparent distress, there is no fever or chills no headache or dizziness no chest pain no shortness of breath no cough no nausea or vomiting no abdominal pain no diarrhea no blood in the stools, patient is passing gas and having bowel movements, no burning with urination no frequency or urgency and no hematuria. Yesterday patient developed atrial fibrillation with rapid ventricular response, he was seen by cardiology and was started on IV heparin. On 12/19/2023 patient was seen and examined in the ICU, he is alert and oriented x 3 in no distress, there is no fever or chills no headache or dizziness no chest pain no shortness of breath no cough no nausea or vomiting no abdominal pain no diarrhea and no urinary symptoms. Patient still has Munoz catheter in. CT scan of the chest done yesterday revealed bilateral consolidative opacities and pleural effusion left greater than right. Patient is maintained on IV Zosyn, he is also maintained on IV heparin for new onset atrial fibrillation, pulmonary and cardiology are following. On 12/20/2023 patient was seen and examined in the ICU he is alert and oriented x 3 in no apparent distress there is no fever or chills no headache or dizziness no chest pain, he is still complaining of cough and shortness of breath with any activity there is no nausea or vomiting no abdominal pain no diarrhea no blood in the stools, Munoz catheter is still in. Vital exam reveals a temperature of 97.7 pulse 57 respiration 13 blood pressure 117/59 pulse ox 98% on 3 L nasal cannula. White blood count 4.9 hemoglobin 7.8 platelet count 328 BUN 14 creatinine 0.74 On 12/21/2023 patient remains in the intensive care unit patient is alert and oriented x 3. Current vital signs temp 97.5, heart 75, respiratory rate 18, blood pressure 133/68 with a pulse ox of 99% on 2 L. White blood cell 4.5, hemoglobin 7.5, creatinine 0.64 and bun 12. Patient remains short of breath wit h cough. Patient denies any nausea vomiting or diarrhea. Patient denies any urinary burning or frequency On 12/22/2023 patient is alert and oriented x 3 currently sitting up in chair. Patient maintained on full liquid diet. Patient having episodes of A-fib with RVR has been started on amiodarone per cardiology. Patient remains on IV Zosyn. Current vital signs temp 98.4, heart rate 122, respiratory rate 26, blood pressure 115/73 with pulse ox 100% on 3 L nasal cannula. Patient denies chest pain or shortness of breath. Patient denies nausea vomiting or diarrhea. Patient denies any urinary burning or frequency On 12/23/2023 patient was seen and examined in the ICU, he is alert and oriented x 3 in no distress, there is no fever or chills no headache or dizziness no chest pain no shortness of breath no cough no nausea or vomiting no abdominal pain no diarrhea and no urinary symptoms. Patient still has Munoz catheter in. CT scan of the chest done yesterday revealed bilateral consolidative opacities and pleural effusion left greater than right. Patient is still maintained on IV Zosyn, he is also maintained on Eliquis for new onset atrial fibrillation, pulmonary and cardiology are following. On 12/24/2023 patient has been transferred out of the ICU to [facility]. Patient is alert and oriented x 3. Patient was started on p.o. amiodarone. Patient also started on IV Lasix per cardiology. Patient remains on IV Zosyn. Current vital signs temp 97.8, heart rate 64, respiratory rate 17, blood pressure 107/66 with a pulse ox of 100% on 2 L. Patient denies chest pain or shortness of breath. Patient denies nausea vomiting or diarrhea. Patient denies any urinary burning or frequency On 12/25/2023 patient was seen and examined on the telemetry floor he is alert and oriented x 3 in no apparent distress, he is sitting up in a chair, he denies any complaints at this time, he had multiple episodes of diarrhea yesterday, C. difficile EIA testing was negative, lactulose was discontinued, and patient denies any new episodes of diarrhea today, otherwise patient denies any complaints there is no fever or chills no headache or dizziness no chest pain no shortness of breath no cough no nausea or vomiting no abdominal pain no diarrhea and no urinary symptoms. On 12/26/2023 patient is alert and oriented x 3 currently sitting up in chair. Patient reports improvement with abdominal discomfort no further diarrhea. Patient remains on IV diuretics. Discharge planning to [facility]. Current vital signs temp 97.8, heart rate 64, respiratory rate 18, blood pressure 103/54 with a pulse ox of 97% on 2 L. Patient denies chest pain or shortness of breath. Patient denies nausea vomiting or diarrhea. Patient denies any urinary burning or frequency On 12/27/2023 patient was seen and examined on the telemetry floor he is alert and oriented x 3 in no apparent distress he denies any symptoms at this time there is no fever or chills no headache or dizziness no chest pain no shortness of breath no cough no nausea or vomiting no abdominal pain no diarrhea no blood in the stools no burning with urination no frequency or urgency and no hematuria. Patient is improving gradually he is being switched to oral medications, possible transfer to the [facility] in the next 1 to 2 days. On 12/28/2023 patient is alert and oriented x 3. Patient had increased abdominal pain abdominal x-ray ordered per surgical services. Current vital signs temp 97.9, heart 73, respiratory rate 18, blood pressure 107/66 with pulse ox 100% on 2 L. Patient denies chest pain or shortness of breath. Patient denies nausea vomiting or diarrhea. Patient denies any urinary burning or frequency Objective - Vital Signs Vital signs: Vital Signs Temp 97.7 F 12/28/23 04:00 Pulse 68 12/28/23 08:34 Resp 18 12/28/23 04:43 BP 110/63 12/28/23 04:00 Pulse Ox 96 12/28/23 04:43 FiO2 28 12/23/23 04:00 Intake & Output 12/27/23 12/28/23 12/28/23 18:59 06:59 18:59 Intake Total 500 0 Output Total 1850 475 Balance -1350 -475 Weight 89 kg Intake: IV 20 Invasive Line 6 20 Oral 480 0 Output: Urine 1850 475 Uretheral (Munoz) 1850 475 Other: Voiding Method Indwelling Catheter Urinal Diaper # Voids 0 ABP, PAP, CO, CI - Last Documented Arterial Blood Pressure 104/33 - Exam In general patient is alert and oriented x 3 in no distress HEENT head normocephalic and atraumatic Neck is supple no JVD no goiter no lymphadenopathy no carotid bruit Chest examination is clear to auscultation no crackles no wheezing Cardiac exam reveals regular heart sounds S1 and S2 no gallops no murmurs Abdomen is soft with mild diffuse tenderness no organomegaly no palpable masses with sluggish bowel sounds Extremity exam reveals no edema no cyanosis or clubbing Neurological examination reveals no gross focal deficits - Labs CBC & Chem 7: 12/28/23 06:08 12/28/23 06:08 Labs: Abnormal Lab Results - Last 24 Hours (Table) 12/28/23 12/28/23 Range/Units 06: 06:08 RBC 3.14 L (4.30-5.90) m/uL Hgb 9.4 L (13.0-17.5) gm/dL Hct 31.2 L (39.0-53.0) % MCHC 30.3 L (31.0-37.0) g/dL Lymphocytes # 0.9 L (1.0-4.8) k/uL Chloride 97 L (98-107) mmol/L Carbon Dioxide 39 H (22-30) mmol/L BUN 21 H (9-20) mg/dL Albumin 3.3 L (3.5-5.0) g/dL Assessment and Plan Plan: Abdominal pain Dilated small bowels with possible ileus versus partial small bowel obstruction Urinary retention Hypotension Severe hyponatremia Acute kidney injury Electrolyte imbalance with severe hyperkalemia Leukocytosis Recent fall with right femur fracture with surgical repair New onset atrial fibrillation with rapid ventricular response during this admission At this time patient is admitted to medical floor Munoz catheter was inserted in the emergency room He was started on IV fluid Nephrology and urology consultation were requested For DVT prophylaxis subcu Pamx Will follow closely
[2023-12-28 11:38] VITALS: BMI 29.0
--- NOTE | 2023-12-28 13:40 | P.PN ---
Subjective Progress Note Date: 12/28/23 Principal diagnosis: Acute kidney injury. 77-year-old male patient, presented to the hospital because of abdominal pain, nausea, emesis, abdominal distention along with weakness, and hypotension. He also noted diminished urine output. His last bowel movement was more than 2 da ys ago. He is not passing any flatus. He was not treated secondary for rehabilitation following a fall with a fracture requiring surgery. In the emergency, the patient was found to have an acute on top of chronic kidney injury. Rich catheter was inserted and the patient immediately produced around 1 L of urine output. Patient was also given an NG tube and a total of 2.5 L of gastric material was aspirated immediately. CAT scan of the abdomen and pelvis was done in the emergency and the patient was found to have fluid-filled esophagus with dilated gas and fluid-filled stomach. Patient also had dilated small bowel with air fluid levels. The distal small bowel appeared collapsed and there was no clear focal transition identified. No focal bowel wall thickening or inflammatory changes. The small bowel measures up to 4.3 cm in size. Gas and stool was present in the large bowel. Appendix was normal. No evidence of interval pneumoperitoneum. Small bilateral pleural effusions along with compressive atelectasis in the lung bases were noted. Blood work showed an acute on top of chronic kidney injury. The patient's creatinine was up to 4.23 with a BUN of 83 and his sodium was 122 with a potassium level of 6 and a chloride was 79 with a bicarb level of 32. Normal LFTs. proBNP level is 468. Amylase and lipase are within normal limits. The white cell count of 14.5 with a hemoglobin 10.1 and a platelet of 511. Coagulation profile is within normal limits. Chest x-ray showed cardiomegaly with mild pulm vascular congestion. For now, the patient is being resuscitated with IV fluids. He is on normal saline at rate of 100 cc an hour. He is also on norepinephrine which is running at 0.15 mcg/kg/min. He is on oxygen at 3 L/min nasal cannula. Triple-lumen catheter was established and the intensive care unit along with an arterial line. General surgery is on the case. Nephrology is also on the case. 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 He is an ex-smoker. 12/16/2023, the patient is being seen for a follow-up. The patient is much more awake compared to yesterday. Noted the patient was aggressive resuscitative IV fluids and over the past 24 hours, the patient received a total of 6 L of IV fluids. Currently on normal saline at rate of 100 cc an hour. The patient required high doses of pressors overnight and norepinephrine was as high as 0.5 mcg/kg/min. Vasopressin was added and currently norepinephrine is down to 0.32 mcg/kg/min. He is much more awake and alert and is communicating. He is on 3 L of O2 nasal cannula. NG tube is still in place and the total amount of output is given in the order of 3.6 L since the tube was placed. Urine output is improving and the patient is producing around 100 cc an hour. No fever. No chills. White cell count 11.7 with hemoglobin 8.8 and a platelet count of 578. Sodium is at 130, BUN 63 with a creatinine of 2.7. The potassium levels of 5.4 and a serum bicarb is at 20. CPK is 1024. Axes are normal. Serum cortisol was 16.9. proBNP level was 1360. Lactic acid level was ordered and results are still pending for now. Troponins at 0.034. His previous echocardiogram showed moderate aortic stenosis and preserved LV function. He is currently on O2 at 3 L. Chest x-ray shows a triple-lumen catheter in the left subclavian. At the same time, the patient has increased pulm vascular markings and some early infiltration of the left perihilar area. On 12/17/2023, the patient is being seen for a follow-up. The patient is, comfortable on 5 L of oxygen by nasal cannula. Continues to have a congested cough. NG tube is in place and output is minimal. Hemodynamically, is improved and the patient is still on norepinephrine running at 0.16 mcg/kg/min and the patient is also physiologic dose of vasopressin. The patient is on half-normal saline at rate of 130 cc an hour. Overall fluid balance is +1.9 L over the past 24 hours. Blood pressures improved and the patient's urine output is excellent for now. Meanwhile, he is afebrile. Hemodynamically he is improving and the blood pressure has essentially improved. We should be able to wean down the pressors. Meanwhile, the patient chest x-ray showing cardiomegaly and the patient has worsening left lower lobe pulmonary filtrate. This could be atelectasis versus pneumonia. NG tube is in a good location. There is background cardiomegaly. The patient remains on IV Zosyn as a broad-spectrum antibiotic coverage for now. The patient is also on Lovenox 40 mg subcu for DVT prophylaxis. The white cell count is 7.6 with a hemoglobin of 7.6 and a platelet count of 398. BUN 38 with a creatinine of 1.2 and a sodium levels at 135 and potassium levels of 4.5. LFTs are essentially within normal limits. Bowel sounds are more active on today's evaluation. The patient remains n.p.o. for now. No other significant events overnight. 12/18/2023, I am seeing the patient for a follow-up. The patient is doing well. He is passing flatus. Had a bowel movement yesterday. Output from the G-tube is minimal. Based on that, I ended up removing the NG tube today. I noted some progressive worsening his oxygenation. Earlier this morning, the patient was placed on O2 at 15 L. The chest x-ray shows worsening in bilateral pulmonary filtrates. Based on that, I ordered a CAT scan of the chest to evaluate the patient's pulmonary findings and the CAT scan was completed this morning and it shows evidence of bilateral consolidation and opacities noted bilateral pleural effusion left more than right. Underlying pneumonia cannot be completely excluded. The patient's renal function has essentially normalized. The white cell count of 6.3 with a hemoglobin 7.6 and a platelet count of 366. The sodium is at 141, bicarb is at 27, BUN 22 with a creatinine of 0.9. LFTs are normal. The patient is awake and alert. He remains in atrial fibrillation. He was found to be slightly more tachycardic on today's evaluation. He remains on IV heparin for now. Antibiotic coverage is with IV Zosyn. On today's evaluation of 12/19/2023, the patient is being seen for a follow-up. Patient is currently on 3 days of oxygen by nasal cannula. Taking clear liquid diet. He is on half-normal saline which is running at 75 cc an hour. No nausea. No vomiting. Abdominal pain. No chest pain. He has been started on IV heparin regarding episode of atrial fibrillation. He is also on metoprolol 25 mg twice a day. His blood work shows a WBC count of 5.2 with a hemoglobin 7.8 and platelet count of 348. Sodium is at 138 with a potassium level of 4.3, bicarb is at 31, BUN is 18 with a creatinine of 0.7. LFTs are within normal limits. Awake and alert and communicating. No other significant events overnight. Patient evaluated today on 12/20/23, remains in the ICU, his nasogastric tube was discontinued by surgery, patient seems to be comfortable, not in distress, intermittently noted to have bradycardia and drop in his blood pressure, being addressed by cardiology. Patient denies being short of breath denies abdominal pain although his abdomen seems to be distended and no bowel sounds noted. Patient remains on Zosyn, his last bowel movement was 12/16. WBC count is 4.9 hemoglobin 7.8 electrolytes are normal renal profile is normal, his metoprolol was decreased by cardiology, because of his intermittent episodes of bradycardia and hypotension Patient was evaluated today 12/21/2023, remains in the ICU, tolerating liquid diet well, still had no bowel movement since the . Patient had a presentation of the ileus, urinary retention and bilateral hydronephrosis, acute kidney injury, hyponatremia, and history of CVA on Plavix, also had a history of recent hip fracture. And in addition to this he has moderate to severe aortic stenosis. Today the patient seems to be comfortable, not in any distress, on 2 L nasal cannula, hemoglobin is 7.5, otherwise the labs were unremarkable. Patient remains on Zosyn empirically, he does have abnormal chest x-ray showing bilateral airspace disease. Patient had another episode last night of bradycardia and according to the nurse he may have had an episode of obstructive sleep apnea associated with bradycardia. Hence I am recommending BiPAP tonight at 02/24/28%.WBC count is 4.5 hemoglobin 7.5 electrolytes are normal renal profile is normal Patient was seen today on 12/22/2023, remains in the ICU, remains on nasal cannul a does not seem to be in distress he is on 3 L nasal cannula patient did not tolerate BiPAP well last night, and he kept removing it. Patient is on Eliquis is also on Zosyn, and the plan is to send the patient to 3 [address]. once a bed becomes available. Patient was seen by cardiology, addressing his arrhythmia and his blood pressure. Pulmonary vinson patient remains on diuretics, and he remains also on antibiotics. Improving, does not seem to be in any distress todayPatient even had a bowel movement today. WBC count is 5.8 hemoglobin 8.2 electrolytes are normal potassium is a bit low at 3.3 BUN is 9 creatinine 0.78. Patient was evaluated today on 12/23/2023, patient remains in the ICU as an ove rflow. He is on 2 L nasal cannula, patient is doing great, patient has been offered BiPAP for his obstructive sleep apnea but refuses to use it. He is being considered for possible transfer to rehab, and I will clear the patient if he is cleared by cardiology. In the meantime we will try to get the patient out of the ICU he has no GI issues, he is having bowel movements without any difficulty. His abdomen is soft. Denies any shortness of breath or cough or wheezing. WBC count is 8.3 hemoglobin 8.7 basic metabolic profile is normal and renal profile is normal bicarb is 38. Patient was evaluated today on 12/24/2023, patient is doing great, feeling much better, patient is having normal bowel movements according to him, chest x-ray is showing improvement in his interstitial edema/pneumonia. Patient remains on diuretics he also remains on antibiotics. Findings on the chest x-ray are c onsistent with improving pneumonia/pulmonary edema. But not back to baseline. Continues to have abdominal distention findings based on the chest x-ray itself.WBC count 7.5 hemoglobin 8.8 electrolytes are normal renal profile is normal. Patient was seen today on 12/25/2023, continues to do well, does not seem to be in any distress, on 2 L nasal cannula with O2 saturation 100%. Chest x-ray showed dramatic improvement in his pneumonia/pulmonary edema, continues to improve steadily. GI symptoms have basically resolved, patient has no issues with bowel movements.WBC count is 6.9 hemoglobin 8.8 basic metabolic profile is normal bicarb is 39 renal profile is normal, C. difficile is negative Seen today on 12/26/2023, patient seems to be doing well, remains on 2 L nasal cannula, not in any distress.WBC count today is 14 nephrology no GI symptoms no pulmonary symptoms son is at bedside. WBC count is 6.4 hemoglobin 9.0 basic metabolic profile is normal and renal profile is normal bicarb is 37, last chest x-ray from 12/23 showed steady improvement in his bilateral pleural effusion and opacities in both lung Progress note dated December 27, 2023. 78-year-old male seen today in room 354. He is currently on 2 L. Saturations are 98%. He is getting saline at 10 cc an hour. Current labs include a white count of 7.4, hemoglobin 9.3, hematocrit 30.1, and a normal platelet count. Sodium 135, potassium 4.7, chloride 95, CO2 36, BUN 20, creatinine 0.96. Albumin is 2.9. Progress note dated December 28, 2023. The patient is seen today in room 354. The patient is sitting in the chair next to his hospital bed. He is not receiving any IV fluids. He is getting nasal O2 at 2 L. He is not having any distress, or respiratory issues. He mentions that he likely will be discharged home tomorrow. He denies any shortness of breath, cough, wheezing, chest tightness, or phlegm production. He also denies any chest pain or pressure. White count is 8.3, hemoglobin 9.4, hematocrit 31.2, pl atelet count is normal. Sodium 138, potassium 4.2, chloride 97, CO2 39, BUN 21, and creatinine 0.91. Albumin is 3.3. Objective - Vital Signs Vital signs: Vital Signs Temp 97.9 F 12/28/23 08:00 Pulse 70 12/28/23 12:00 Resp 18 12/28/23 12:00 BP 122/65 12/28/23 12:00 Pulse Ox 99 12/28/23 12:00 FiO2 28 12/23/23 04:00 Intake & Output 12/27/23 12/28/23 12/28/23 18:59 06:59 18:59 Intake Total 500 0 Output Total 1850 475 Balance -1350 -475 Weight 89 kg 89 kg Intake: IV 20 Invasive Line 6 20 Oral 480 0 Output: Urine 1849 475 Uretheral (Rich) 1849 475 Other: Voiding Method Indwelling Catheter Urinal Indwelling Catheter Diaper # Voids 0 ABP, PAP, CO, CI - Last Documented Arterial Blood Pressure 104/33 - Exam No acute distress, oriented 3. Currently on 2 L. Saturations are 99%. HEENT examination is grossly unremarkable. Mucous membranes are moist. No oral lesions. Neck supple. Full range of motion. No adenopathy thyromegaly or neck vein distention. Cardiovascular examination reveals regular rhythm rate. S1-S2 normal. No S3 or S4. Grade 2/6 systolic murmur noted. Lungs reveal scattered rhonchi. No wheezes or crackles. Breath sounds are equal. Saturations are 99 %. Abdomen soft bowel sounds are heard. No masses or tenderness. Extremities are intact. No cyanosis clubbing or edema. Skin is without rash or lesion. Neurologic examination is brief but nonfocal. - Labs CBC & Chem 7: 12/28/23 06:08 12/28/23 06:08 Labs: Abnormal Lab Results - Last 24 Hours (Table) 12/28/23 12/28/23 Range/Units 06:08 06:08 RBC 3.14 L (4.30-5.90) m/uL Hgb 9.4 L (13.0-17.5) gm/dL Hct 31.2 L (39.0-53.0) % MCHC 30.3 L (31.0-37.0) g/dL Lymphocytes # 0.9 L (1.0-4.8) k/uL Chloride 97 L (98-107) mmol/L Carbon Dioxide 39 H (22-30) mmol/L BUN 21 H (9-20) mg/dL Albumin 3.3 L (3.5-5.0) g/dL Assessment and Plan Assessment: Small bowel obstruction/ileus, secondary abdominal pain and distention, clinically improved. Acute kidney injury, recovered. Hyperkalemia, resolved. Moderately severe aortic stenosis. Acute hypoxemic respiratory failure. Hypotension, resolved. Recent hip fracture, status post ORIF. History of CVA. Hyperlipidemia. Anemia of chronic disease. Plan: Plan dated December 27, 2023. The patient shows ongoing improvement. Chest x-ray is much improved. 2 L saturation is 98%. Labs, x-rays, medications are reviewed. The patient continues on Lasix. Discharge planning underway. The patient will likely be discharged to a rehab facility. We will continue to follow make recommendations along the way. Plan dated December 28, 2023. The patient is seen today in room 354. He is sitting in a chair next to his hospital bed. He is in no distress. He states that he is feeling well, without any pulmonary issues. He is on 2 L. Not receiving any IV fluids. The patient is hoping to be discharged home tomorrow. Labs, x-rays, and all medications are reviewed. Prognosis is guarded. Time with Patient: Less than 30
--- NOTE | 2023-12-28 15:10 | P.PN ---
Subjective Progress Note Date: 12/28/23 CHIEF COMPLAINT: Abdominal pain HISTORY OF PRESENT ILLNESS: Patient had episode of vomiting this morning. He reports 4 days since his last bowel movement. Emesis was brownish in color. He was made n.p.o. and an abdominal x-ray ordered and results reported nonspecific nonobstructive bowel gas pattern. Patient seen later in the morning and he reports no abdominal pain. The nausea has resolved. He is having flatus. PHYSICAL EXAM: VITAL SIGNS: Reviewed GENERAL: no acute distress HEENT: No sclera icterus. Extraocular movements grossly intact. Moist buccal mucosa. Head is atraumatic, normocephalic. Hears conversational speech. No nasal drainage. NECK: Supple without lymphadenopathy. CHEST: Non-labored respirations and equal bilateral excursions. CARDIOVASCULAR: Palpable 2+ radial pulses. ABDOMEN: Soft. Mildly distended. Nontender. MUSCULOSKELETAL: No clubbing or cyanosis. NEUROLOGIC: No focal or lateralizing signs. Cranial nerves II through XII grossly intact. SKIN: Well perfused. Good skin turgor. ASSESSMENT: 1. Ileus resolved 2. Nausea and vomiting 2. Urinary retention and bilateral hydronephrosis status post Rich catheter placement 3. Acute kidney injury improved 4. Hyponatremia improved 5. Hypokalemia improved 6. History of CVAs 7. Recent hip fracture status postsurgical repair 8. Moderate to severe aortic stenosis PLAN: -X-ray reviewed with Dr. Davalos with evidence of a lot of gas. 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 Signing provider agrees with the documented findings, assessment, and plan of care. Please see additional documentation below. Patient reevaluated by surgical team 1953. CHIEF COMPLAINT: Ileus HISTORY OF PRESENT ILLNESS: The patient is a 78-year-old male being followed for ileus. Last night into this morning, patient had nausea and vomiting. He denies abdominal pain. Patient reports he feels much better at this evening. He wants to maintain full liquid diet. He wants to have a bowel movement. He reports no abdominal for 3 days. ROS: No fevers or chills. No new chest pain. PHYSICAL EXAM: VITAL SIGNS: Reviewed CONSTITUTIONAL: Well developed and in no acute distress. EYES: Conjuctivae without sclera icterus. Extraocular movements grossly intact. HEAD, EARS, NOSE, THROAT: Moist buccal mucosa. Head is atraumatic, normocephalic. Hears conversational speech. No nasal drainage. RESPIRATORY: Non-labored respirations and equal bilateral excursions. CARDIOVASCULAR: Palpable 2+ radial pulses. ABDOMEN: Resolved abdominal distention. No peritonitis. MUSCULOSKELETAL: No gross deformity of the lower extremities noted. No clubbing. No cyanosis. SKIN: Good skin turgor. Well perfused. NEUROLOGIC: Cranial nerves II through XII grossly intact. No focal or lateralizing signs. PSYCH: Flat affect. Alert and oriented to self. CLINICAL LABS: Reviewed. WBC normal 8.3. Hemoglobin with anemia, 9.4. STUDIES: Abdominal x-ray independently reviewed demonstrates moderate gaseous distention. No free air. This is my independent interpretation. ASSESSMENT: 1. Ileus 2. Nausea and vomiting 3. Acute kidney injury, resolved 4. Aortic stenosis, moderate to severe PLAN: 1. Recommend Dulcolax suppository to facilitate bowel movements and stimulation of the rectum. 2. Per patient request, will continue with liquid diet at this time. Objective - Vital Signs Vital signs: Vital Signs Temp 97.9 F 12/28/23 08:00 Pulse 70 12/28/23 14:00 Resp 18 12/28/23 14:00 BP 122/65 12/28/23 12:00 Pulse Ox 99 12/28/23 12:00 FiO2 28 12/23/23 04:00 Intake & Output 12/27/23 12/28/23 12/28/23 18:59 06:59 18:59 Intake Total 500 0 Output Total 1850 475 Balance -1350 -367 Weight 89 kg 89 kg Intake: IV 20 Invasive Line 6 20 Oral 480 0 Output: Urine 1850 475 Uretheral (Rich) 1850 475 Other: Voiding Method Indwelling Catheter Urinal Indwelling Catheter Diaper # Voids 0 ABP, PAP, CO, CI - Last Documented Arterial Blood Pressure 104/33 - Labs CBC & Chem 7: 12/28/23 06:08 12/28/23 06:08 Labs: Abnormal Lab Results - Last 24 Hours (Table) 12/28/23 12/28/23 Range/Units 06:08 06:08 RBC 3.14 L (4.30-5.90) m/uL Hgb 9.4 L (13.0-17.5) gm/dL Hct 31.2 L (39.0-53.0) % MCHC 30.3 L (31.0-37.0) g/dL Lymphocytes # 0.9 L (1.0-4.8) k/uL Chloride 97 L (98-107) mmol/L Carbon Dioxide 39 H (22-30) mmol/L BUN 21 H (9-20) mg/dL Albumin 3.3 L (3.5-5.0) g/dL
[2023-12-28] MEDS: SIMETHICONE 40 MG/0.6 ML DROPS 2,000 MG/30 ML BOTTLE PO SCH (17:16)
[2023-12-28] MEDS: DOCUSATE 100 MG CAP PO SCH (21:40)
[2023-12-29 07:54] VITALS: RESP 20
--- NOTE | 2023-12-29 10:52 | P.PN ---
Subjective Progress Note Date: 12/29/23 CHIEF COMPLAINT: Abdominal pain HISTORY OF PRESENT ILLNESS: Patient feels better today. He has had no further episodes of vomiting. He is tolerating full liquids. He is having flatus. They are working on discharging him to [facility] today. PHYSICAL EXAM: VITAL SIGNS: Reviewed GENERAL: no acute distress HEENT: No sclera icterus. Extraocular movements grossly intact. Moist buccal mucosa. Head is atraumatic, normocephalic. Hears conversational speech. No nasal drainage. NECK: Supple without lymphadenopathy. CHEST: Non-labored respirations and equal bilateral excursions. CARDIOVASCULAR: Palpable 2+ radial pulses. ABDOMEN: Soft. Nondistended nontender. MUSCULOSKELETAL: No clubbing or cyanosis. NEUROLOGIC: No focal or lateralizing signs. Cranial nerves II through XII grossly intact. SKIN: Well perfused. Good skin turgor. ASSESSMENT: 1. Ileus resolved 2. Nausea and vomiting 2. Urinary retention and bilateral hydronephrosis status post Rich catheter placement 3. Acute kidney injury improved 4. Hyponatremia improved 5. Hypokalemia improved 6. History of CVAs 7. Recent hip fracture status postsurgical repair 8. Moderate to severe aortic stenosis PLAN: -Continue good bowel regimen after discharge. 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 Signing provider agrees with the documented findings, assessment, and plan of care. Objective - Vital Signs Vital signs: Vital Signs Temp 98.1 F 12/29/23 07:52 Pulse 62 12/29/23 08:59 Resp 20 12/29/23 08:59 BP 113/51 12/29/23 07:52 Pulse Ox 96 12/29/23 07:52 FiO2 28 12/23/23 04:00 Intake & Output 12/28/23 12/29/23 12/29/23 18:59 06:59 18:59 Output Total 1000 Balance -1000 Weight 89 kg 86.5 kg Output: Urine 1000 Other: Voiding Method Indwelling Catheter Indwelling Catheter Indwelling Catheter # Bowel Movements 0 ABP, PAP, CO, CI - Last Documented Arterial Blood Pressure 104/33 - Labs CBC & Chem 7: 12/28/23 06:08 12/28/23 06:08
[2023-12-29 10:56] VITALS: BP 110/57; TEMP 98.6
--- NOTE | 2023-12-29 11:53 | P.PN ---
Subjective Progress Note Date: 12/29/23 Principal diagnosis: Acute kidney injury. 77-year-old male patient, presented to the hospital because of abdominal pain, nausea, emesis, abdominal distention along with weakness, and hypotension. He also noted diminished urine output. His last bowel movement was more than 2 da ys ago. He is not passing any flatus. He was not treated secondary for rehabilitation following a fall with a fracture requiring surgery. In the emergency, the patient was found to have an acute on top of chronic kidney injury. Rich catheter was inserted and the patient immediately produced around 1 L of urine output. Patient was also given an NG tube and a total of 2.5 L of gastric material was aspirated immediately. CAT scan of the abdomen and pelvis was done in the emergency and the patient was found to have fluid-filled esophagus with dilated gas and fluid-filled stomach. Patient also had dilated small bowel with air fluid levels. The distal small bowel appeared collapsed and there was no clear focal transition identified. No focal bowel wall thickening or inflammatory changes. The small bowel measures up to 4.3 cm in size. Gas and stool was present in the large bowel. Appendix was normal. No evidence of interval pneumoperitoneum. Small bilateral pleural effusions along with compressive atelectasis in the lung bases were noted. Blood work showed an acute on top of chronic kidney injury. The patient's creatinine was up to 4.23 with a BUN of 83 and his sodium was 122 with a potassium level of 6 and a chloride was 79 with a bicarb level of 32. Normal LFTs. proBNP level is 468. Amylase and lipase are within normal limits. The white cell count of 14.5 with a hemoglobin 10.1 and a platelet of 511. Coagulation profile is within normal limits. Chest x-ray showed cardiomegaly with mild pulm vascular congestion. For now, the patient is being resuscitated with IV fluids. He is on normal saline at rate of 100 cc an hour. He is also on norepinephrine which is running at 0.15 mcg/kg/min. He is on oxygen at 3 L/min nasal cannula. Triple-lumen catheter was established and the intensive care unit along with an arterial line. General surgery is on the case. Nephrology is also on the case. 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 He is an ex-smoker. 12/16/2023, the patient is being seen for a follow-up. The patient is much more awake compared to yesterday. Noted the patient was aggressive resuscitative IV fluids and over the past 24 hours, the patient received a total of 6 L of IV fluids. Currently on normal saline at rate of 100 cc an hour. The patient required high doses of pressors overnight and norepinephrine was as high as 0.5 mcg/kg/min. Vasopressin was added and currently norepinephrine is down to 0.32 mcg/kg/min. He is much more awake and alert and is communicating. He is on 3 L of O2 nasal cannula. NG tube is still in place and the total amount of output is given in the order of 3.6 L since the tube was placed. Urine output is improving and the patient is producing around 100 cc an hour. No fever. No chills. White cell count 11.7 with hemoglobin 8.8 and a platelet count of 578. Sodium is at 130, BUN 63 with a creatinine of 2.7. The potassium levels of 5.4 and a serum bicarb is at 20. CPK is 1024. Axes are normal. Serum cortisol was 16.9. proBNP level was 1360. Lactic acid level was ordered and results are still pending for now. Troponins at 0.034. His previous echocardiogram showed moderate aortic stenosis and preserved LV function. He is currently on O2 at 3 L. Chest x-ray shows a triple-lumen catheter in the left subclavian. At the same time, the patient has increased pulm vascular markings and some early infiltration of the left perihilar area. On 12/17/2023, the patient is being seen for a follow-up. The patient is, comfortable on 5 L of oxygen by nasal cannula. Continues to have a congested cough. NG tube is in place and output is minimal. Hemodynamically, is improved and the patient is still on norepinephrine running at 0.16 mcg/kg/min and the patient is also physiologic dose of vasopressin. The patient is on half-normal saline at rate of 130 cc an hour. Overall fluid balance is +1.9 L over the past 24 hours. Blood pressures improved and the patient's urine output is excellent for now. Meanwhile, he is afebrile. Hemodynamically he is improving and the blood pressure has essentially improved. We should be able to wean down the pressors. Meanwhile, the patient chest x-ray showing cardiomegaly and the patient has worsening left lower lobe pulmonary filtrate. This could be atelectasis versus pneumonia. NG tube is in a good location. There is background cardiomegaly. The patient remains on IV Zosyn as a broad-spectrum antibiotic coverage for now. The patient is also on Lovenox 40 mg subcu for DVT prophylaxis. The white cell count is 7.6 with a hemoglobin of 7.6 and a platelet count of 398. BUN 38 with a creatinine of 1.2 and a sodium levels at 135 and potassium levels of 4.5. LFTs are essentially within normal limits. Bowel sounds are more active on today's evaluation. The patient remains n.p.o. for now. No other significant events overnight. 12/18/2023, I am seeing the patient for a follow-up. The patient is doing well. He is passing flatus. Had a bowel movement yesterday. Output from the G-tube is minimal. Based on that, I ended up removing the NG tube today. I noted some progressive worsening his oxygenation. Earlier this morning, the patient was placed on O2 at 15 L. The chest x-ray shows worsening in bilateral pulmonary filtrates. Based on that, I ordered a CAT scan of the chest to evaluate the patient's pulmonary findings and the CAT scan was completed this morning and it shows evidence of bilateral consolidation and opacities noted bilateral pleural effusion left more than right. Underlying pneumonia cannot be completely excluded. The patient's renal function has essentially normalized. The white cell count of 6.3 with a hemoglobin 7.6 and a platelet count of 366. The sodium is at 141, bicarb is at 27, BUN 22 with a creatinine of 0.9. LFTs are normal. The patient is awake and alert. He remains in atrial fibrillation. He was found to be slightly more tachycardic on today's evaluation. He remains on IV heparin for now. Antibiotic coverage is with IV Zosyn. On today's evaluation of 12/19/2023, the patient is being seen for a follow-up. Patient is currently on 3 days of oxygen by nasal cannula. Taking clear liquid diet. He is on half-normal saline which is running at 75 cc an hour. No nausea. No vomiting. Abdominal pain. No chest pain. He has been started on IV heparin regarding episode of atrial fibrillation. He is also on metoprolol 25 mg twice a day. His blood work shows a WBC count of 5.2 with a hemoglobin 7.8 and platelet count of 348. Sodium is at 138 with a potassium level of 4.3, bicarb is at 31, BUN is 18 with a creatinine of 0.7. LFTs are within normal limits. Awake and alert and communicating. No other significant events overnight. Patient evaluated today on 12/20/23, remains in the ICU, his nasogastric tube was discontinued by surgery, patient seems to be comfortable, not in distress, intermittently noted to have bradycardia and drop in his blood pressure, being addressed by cardiology. Patient denies being short of breath denies abdominal pain although his abdomen seems to be distended and no bowel sounds noted. Patient remains on Zosyn, his last bowel movement was 12/16. WBC count is 4.9 hemoglobin 7.8 electrolytes are normal renal profile is normal, his metoprolol was decreased by cardiology, because of his intermittent episodes of bradycardia and hypotension Patient was evaluated today 12/21/2023, remains in the ICU, tolerating liquid diet well, still had no bowel movement since the . Patient had a presentation of the ileus, urinary retention and bilateral hydronephrosis, acute kidney injury, hyponatremia, and history of CVA on Plavix, also had a history of recent hip fracture. And in addition to this he has moderate to severe aortic stenosis. Today the patient seems to be comfortable, not in any distress, on 2 L nasal cannula, hemoglobin is 7.5, otherwise the labs were unremarkable. Patient remains on Zosyn empirically, he does have abnormal chest x-ray showing bilateral airspace disease. Patient had another episode last night of bradycardia and according to the nurse he may have had an episode of obstructive sleep apnea associated with bradycardia. Hence I am recommending BiPAP tonight at 02/24/28%.WBC count is 4.5 hemoglobin 7.5 electrolytes are normal renal profile is normal Patient was seen today on 12/22/2023, remains in the ICU, remains on nasal cannul a does not seem to be in distress he is on 3 L nasal cannula patient did not tolerate BiPAP well last night, and he kept removing it. Patient is on Eliquis is also on Zosyn, and the plan is to send the patient to 3 [address]. once a bed becomes available. Patient was seen by cardiology, addressing his arrhythmia and his blood pressure. Pulmonary vinson patient remains on diuretics, and he remains also on antibiotics. Improving, does not seem to be in any distress todayPatient even had a bowel movement today. WBC count is 5.8 hemoglobin 8.2 electrolytes are normal potassium is a bit low at 3.3 BUN is 9 creatinine 0.78. Patient was evaluated today on 12/23/2023, patient remains in the ICU as an ove rflow. He is on 2 L nasal cannula, patient is doing great, patient has been offered BiPAP for his obstructive sleep apnea but refuses to use it. He is being considered for possible transfer to rehab, and I will clear the patient if he is cleared by cardiology. In the meantime we will try to get the patient out of the ICU he has no GI issues, he is having bowel movements without any difficulty. His abdomen is soft. Denies any shortness of breath or cough or wheezing. WBC count is 8.3 hemoglobin 8.7 basic metabolic profile is normal and renal profile is normal bicarb is 38. Patient was evaluated today on 12/24/2023, patient is doing great, feeling much better, patient is having normal bowel movements according to him, chest x-ray is showing improvement in his interstitial edema/pneumonia. Patient remains on diuretics he also remains on antibiotics. Findings on the chest x-ray are c onsistent with improving pneumonia/pulmonary edema. But not back to baseline. Continues to have abdominal distention findings based on the chest x-ray itself.WBC count 7.5 hemoglobin 8.8 electrolytes are normal renal profile is normal. Patient was seen today on 12/25/2023, continues to do well, does not seem to be in any distress, on 2 L nasal cannula with O2 saturation 100%. Chest x-ray showed dramatic improvement in his pneumonia/pulmonary edema, continues to improve steadily. GI symptoms have basically resolved, patient has no issues with bowel movements.WBC count is 6.9 hemoglobin 8.8 basic metabolic profile is normal bicarb is 39 renal profile is normal, C. difficile is negative Seen today on 12/26/2023, patient seems to be doing well, remains on 2 L nasal cannula, not in any distress.WBC count today is 14 nephrology no GI symptoms no pulmonary symptoms son is at bedside. WBC count is 6.4 hemoglobin 9.0 basic metabolic profile is normal and renal profile is normal bicarb is 37, last chest x-ray from 12/23 showed steady improvement in his bilateral pleural effusion and opacities in both lung Progress note dated December 27, 2023. 78-year-old male seen today in room 354. He is currently on 2 L. Saturations are 98%. He is getting saline at 10 cc an hour. Current labs include a white count of 7.4, hemoglobin 9.3, hematocrit 30.1, and a normal platelet count. Sodium 135, potassium 4.7, chloride 95, CO2 36, BUN 20, creatinine 0.96. Albumin is 2.9. Progress note dated December 28, 2023. The patient is seen today in room 354. The patient is sitting in the chair next to his hospital bed. He is not receiving any IV fluids. He is getting nasal O2 at 2 L. He is not having any distress, or respiratory issues. He mentions that he likely will be discharged home tomorrow. He denies any shortness of breath, cough, wheezing, chest tightness, or phlegm production. He also denies any chest pain or pressure. White count is 8.3, hemoglobin 9.4, hematocrit 31.2, pl atelet count is normal. Sodium 138, potassium 4.2, chloride 97, CO2 39, BUN 21, and creatinine 0.91. Albumin is 3.3. Progress note dated December 29, 2023. The patient is seen today again in room 354. The patient continues on O2 at 2 L. No IV fluids. The patient is excited about the possibility of being discharged home today. Not sure of any decision has yet been made. From the respiratory status is stable. He denies any shortness of breath, cough, wheezing, or chest tightness. No new laboratory today as yet. Objective - Vital Signs Vital signs: Vital Signs Temp 98.6 F 12/29/23 10:54 Pulse 72 12/29/23 11:25 Resp 20 12/29/23 10:54 BP 110/57 12/29/23 10:54 Pulse Ox 100 12/29/23 10:54 FiO2 28 12/23/23 04:00 Intake & Output 12/28/23 12/29/23 12/29/23 18:59 06:59 18:59 Output Total 1000 Balance -1000 Weight 89 kg 86.5 kg Output: Urine 1000 Other: Voiding Method Indwelling Catheter Indwelling Catheter Indwelling Catheter # Bowel Movements 0 ABP, PAP, CO, CI - Last Documented Arterial Blood Pressure 104/33 - Exam No acute distress, oriented 3. Currently on 2 L. Saturations are 88 %. HEENT examination is grossly unremarkable. Mucous membranes are moist. No oral lesions. Neck supple. Full range of motion. No adenopathy thyromegaly or neck vein distention. Cardiovascular examination reveals regular rhythm rate. S1-S2 normal. No S3 or S4. Grade 2/6 systolic murmur noted. Lungs reveal scattered rhonchi. No wheezes or crackles. Breath sounds are equal. Saturations are 98 %. Abdomen soft bowel sounds are heard. No masses or tenderness. Extremities are intact. No cyanosis clubbing or edema. Skin is without rash or lesion. Neurologic examination is brief but nonfocal. - Labs CBC & Chem 7: 12/28/23 06:08 12/28/23 06:08 Assessment and Plan Assessment: Small bowel obstruction/ileus, secondary abdominal pain and distention, clinically improved. Acute kidney injury, recovered. Hyperkalemia, resolved. Moderately severe aortic stenosis. Acute hypoxemic respiratory failure. Hypotension, resolved. Recent hip fracture, status post ORIF. History of CVA. Hyperlipidemia. Anemia of chronic disease. Plan: Plan dated December 27, 2023. The patient shows ongoing improvement. Chest x-ray is much improved. 2 L saturation is 98%. Labs, x-rays, medications are reviewed. The patient continues on Lasix. Discharge planning underway. The patient will likely be discharged to a rehab facility. We will continue to follow make recommendations along the way. Plan dated December 28, 2023. The patient is seen today in room 354. He is sitting in a chair next to his hospital bed. He is in no distress. He states that he is feeling well, without any pulmonary issues. He is on 2 L. Not receiving any IV fluids. The patient is hoping to be discharged home tomorrow. Labs, x-rays, and all medications are reviewed. Prognosis is guarded. Plan dated December 29, 2023. The patient appears to be doing relatively well. He is seen again today in room 354. He is on 2 L of oxygen. The patient denies all pulmonary issues including shortness of breath, cough, wheezing, chest tightness, or phlegm production. The patient is hoping to be discharged home sometime today. Will leave that up to the primary service. Labs, x-rays, and all medications have been reviewed. Time with Patient: Less than 30
--- NOTE | 2023-12-29 13:49 | P.DS ---
Providers Date of admission: 12/15/23 12:42 Expected date of discharge: 12/29/23 Attending physician: Kristine Pena Consults: 12/15/23 12:40 Consult Physician Urgent Consulting Provider: Yariel Aranda Consult Reason/Comments: micah, hyponatremia Do you want consulting provider notified?: Yes Consult Physician Urgent Consulting Provider: Rose Davalos Consult Reason/Comments: illeus v partial sbp Do you want consulting provider notified?: Yes 12/15/23 12:53 Consult Physician Routine Consulting Provider: Wai Mcdonough Consult Reason/Comments: b/l hydro Do you want consulting provider notified?: Yes 12/15/23 17:13 Consult Physician Routine Consulting Provider: Kyle Morton Consult Reason/Comments: hypotension Do you want consulting provider notified?: Yes Primary care physician: Kristine Pena [facility] Course: Discharge diagnosis Abdominal pain Dilated small bowels with possible ileus versus partial small bowel obstruction Urinary retention Hypotension Severe hyponatremia Acute kidney injury Electrolyte imbalance with severe hyperkalemia Leukocytosis Recent fall with right femur fracture with surgical repair New onset atrial fibrillation with rapid ventricular response during this admission Hospital course Chevy French, is a 77-year-old male who presented to [facility] emergency room due to abdominal pain and generalized weakness and hypotension. Patient was recently admitted to [facility] after sustaining a fall and having femur fracture he underwent surgery and [facility]. He was evaluated in the emergency room vital examination on presentation revealed a temperature of 98.7 pulse 80 respiration 30 blood pressure 80/53 pulse ox 97% on 5 L nasal cannula Laboratory data revealed a white blood count of 14.5 hemoglobin 10.1 platelet count 511 sodium 122 potassium 6.0 chloride 79 BUN 83 creatinine 4.23 Testing in the emergency room revealed chest x-ray revealed low lung volumes with generalized hazy appearance which could represent atelectasis versus pulmonary edema, CT scan of the abdomen revealed dilated small bowel loops and stomach without clear focal transition point, and significantly distended urinary bladder with bilateral hydronephrosis. Patient was admitted to medical floor for further evaluation and treatment On 12/16/2023 patient was seen and examined in the ICU, he is alert and oriented in no distress, he is maintained on blood pressure support, triple lumen and arterial line inserted, patient is followed by critical care, he denies any chest pain, or shortness of breath, munoz catheter inserted yesterday, kidney function improving. On 12/17/2023 patient is alert and oriented. Patient remains in the ICU pressure supporting medication. Creatinine improving to 1.28 bun 38 potassium 4.8 sodium 135.current vital signs temp 98.1, heart rate 60, respiratory rate 20, blood pressure 1 today knee 6/41 with pulse ox of96% on 4 L. Patient remains with NG tube nothing by mouth. On 12/18/2023 patient was seen and examined in the ICU he is alert and oriented x 3 in no apparent distress, there is no fever or chills no headache or dizziness no chest pain no shortness of breath no cough no nausea or vomiting no abdominal pain no diarrhea no blood in the stools, patient is passing gas and having bowel movements, no burning with urination no frequency or urgency and no hematuria. Yesterday patient developed atrial fibrillation with rapid ventricular response, he was seen by cardiology and was started on IV heparin. On 12/19/2023 patient was seen and examined in the ICU, he is alert and oriented x 3 in no distress, there is no fever or chills no headache or dizziness no chest pain no shortness of breath no cough no nausea or vomiting no abdominal pain no diarrhea and no urinary symptoms. Patient still has Munoz catheter in. CT scan of the chest done yesterday revealed bilateral consolidative opacities and pleural effusion left greater than right. Patient is maintained on IV Zosyn, he is also maintained on IV heparin for new onset atrial fibrillation, pulmonary and cardiology are following. On 12/20/2023 patient was seen and examined in the ICU he is alert and oriented x 3 in no apparent distress there is no fever or chills no headache or dizziness no chest pain, he is still complaining of cough and shortness of breath with any activity there is no nausea or vomiting no abdominal pain no diarrhea no blood in the stools, Munoz catheter is still in. Vital exam reveals a temperature of 97.7 pulse 57 respiration 13 blood pressure 117/59 pulse ox 98% on 3 L nasal cannula. White blood count 4.9 hemoglobin 7.8 platelet count 328 BUN 14 creatinine 0.74 On 12/21/2023 patient remains in the intensive care unit patient is alert and oriented x 3. Current vital signs temp 97.5, heart 75, respiratory rate 18, blood pressure 133/68 with a pulse ox of 99% on 2 L. White blood cell 4.5, hemoglobin 7.5, creatinine 0.64 and bun 12. Patient remains short of breath with cough. Patient denies any nausea vomiting or diarrhea. Patient denies any urinary burning or frequency On 12/22/2023 patient is alert and oriented x 3 currently sitting up in chair. Patient maintained on full liquid diet. Patient having episodes of A-fib with RVR has been started on amiodarone per cardiology. Patient remains on IV Zosyn. Current vital signs temp 98.4, heart rate 122, respiratory rate 26, blood pressure 115/73 with pulse ox 100% on 3 L nasal cannula. Patient denies chest pain or shortness of breath. Patient denies nausea vomiting or diarrhea. Patient denies any urinary burning or frequency On 12/23/2023 patient was seen and examined in the ICU, he is alert and oriented x 3 in no distress, there is no fever or chills no headache or dizziness no chest pain no shortness of breath no cough no nausea or vomiting no abdominal pain no diarrhea and no urinary symptoms. Patient still has Munoz catheter in. CT scan of the chest done yesterday revealed bilateral consolidative opacities and pleural effusion left greater than right. Patient is still maintained on IV Zosyn, he is also maintained on Eliquis for new onset atrial fibrillation, pulmonary and cardiology are following. On 12/24/2023 patient has been transferred out of the ICU to [facility]. Patient is alert and oriented x 3. Patient was started on p.o. amiodarone. Patient also started on IV Lasix per cardiology. Patient remains on IV Zosyn. Current vital signs temp 97.8, heart rate 64, respiratory rate 17, blood pressure 107/66 with a pulse ox of 100% on 2 L. Patient denies chest pain or shortness of breath. Patient denies nausea vomiting or diarrhea. Patient denies any urinary burning or frequency On 12/25/2023 patient was seen and examined on the telemetry floor he is alert and oriented x 3 in no apparent distress, he is sitting up in a chair, he denies any complaints at this time, he had multiple episodes of diarrhea yesterday, C. difficile EIA testing was negative, lactulose was discontinued, and patient denies any new episodes of diarrhea today, otherwise patient denies any complaints there is no fever or chills no headache or dizziness no chest pain no shortness of breath no cough no nausea or vomiting no abdominal pain no diarrhea and no urinary symptoms. On 12/26/2023 patient is alert and oriented x 3 currently sitting up in chair. Patient reports improvement with abdominal discomfort no further diarrhea. Patient remains on IV diuretics. Discharge planning to [facility]. Current vital signs temp 97.8, heart rate 64, respiratory rate 18, blood pressure 103/54 with a pulse ox of 97% on 2 L. Patient denies chest pain or shortness of breath. Patient denies nausea vomiting or diarrhea. Patient denies any urinary burning or frequency On 12/27/2023 patient was seen and examined on the telemetry floor he is alert a nd oriented x 3 in no apparent distress he denies any symptoms at this time there is no fever or chills no headache or dizziness no chest pain no shortness of breath no cough no nausea or vomiting no abdominal pain no diarrhea no blood in the stools no burning with urination no frequency or urgency and no hematuria. Patient is improving gradually he is being switched to oral medications, possible [facility] in the next 1 to 2 days. On 12/28/2023 patient is alert and oriented x 3. Patient had increased abdominal pain abdominal x-ray ordered per surgical services. Current vital signs temp 97.9, heart 73, respiratory rate 18, blood pressure 107/66 with pulse ox 100% on 2 L. Patient denies chest pain or shortness of breath. Patient denies nausea vomiting or diarrhea. Patient denies any urinary burning or frequency On 12/29/2023 patient is alert and oriented x 3. Abdominal x-ray negative. Abdominal pain and nausea improved. Patient has been tolerating diet. Cleared for discharge from surgical standpoint patient will be DC'd on MiraLAX and gas drops. Patient will be DC'd back to [facility] facility patient was started on Eliquis and amiodarone for new onset atrial fibrillation. Patient to follow-up with cardiology and urology services for further management. Patient denies chest pain or shortness of breath. Patient denies nausea vomiting or diarrhea. Patient denies any urinary burning or frequency Patient Condition at Discharge: Stable Plan - Discharge Summary Discharge Rx Participant: No New Discharge Prescriptions: New Docusate [Colace] 100 mg PO BID cap Apixaban [Eliquis] 5 mg PO BID tab polyethylene glycoL 3350 [Miralax] 17 gm PO DAILY packet Simethicone 40 mg/0.6 ml Drops [Mylicon Drops] 80 mg PO QID ml Metoprolol Succinate (ER) [Toprol XL] 12.5 mg PO DAILY tab Bumetanide [BUMEX] 1 mg PO DAILY tab Amiodarone [Cordarone] 400 mg PO BID tab Tamsulosin [Flomax] 0.4 mg PO PC-BRKFST #0 cap Atorvastatin [Lipitor] 40 mg PO DAILY tab Continue Lactose-Reduced Food [Ensure Plus] 1 can PO DAILY Sennosides [Senokot] 17.2 tab PO DAILY PRN PRN Reason: Constipation Nicotine 21Mg/24Hr Patch [Habitrol] 1 patch TRANSDERM DAILY patch HYDROcodone/APAP 5-325MG [Leslie 5-325] 1 - 2 tab PO Q6HR PRN #32 tab PRN Reason: Pain Discontinued Lisinopril-Hctz 20-12.5 mg [Zestoretic 20-12.5] 1 tab PO DAILY Clopidogrel [Plavix] 75 mg PO DAILY Aspirin [Adult Low Dose Aspirin EC] 81 mg PO BID 30 Days #60 tab Discharge Medication List Nicotine 21Mg/24Hr Patch [Habitrol] 1 patch TRANSDERM DAILY patch 11/30/23 [Rx] Lactose-Reduced Food [Ensure Plus] 1 can PO DAILY 12/15/23 [History] Sennosides [Senokot] 17.2 tab PO DAILY PRN 12/15/23 [History] Amiodarone [Cordarone] 400 mg PO BID tab 12/29/23 [Rx] Apixaban [Eliquis] 5 mg PO BID tab 12/29/23 [Rx] Atorvastatin [Lipitor] 40 mg PO DAILY tab 12/29/23 [Rx] Bumetanide [BUMEX] 1 mg PO DAILY tab 12/29/23 [Rx] Docusate [Colace] 100 mg PO BID cap 12/29/23 [Rx] HYDROcodone/APAP 5-325MG [Leslie 5-325] 1 - 2 tab PO Q6HR PRN #32 tab 12/29/23 [Rx] Metoprolol Succinate (ER) [Toprol XL] 12.5 mg PO DAILY tab 12/29/23 [Rx] Simethicone 40 mg/0.6 ml Drops [Mylicon Drops] 80 mg PO QID ml 12/29/23 [Rx] Tamsulosin [Flomax] 0.4 mg PO PC-BRKFST #0 cap 12/29/23 [Rx] polyethylene glycoL 3350 [Miralax] 17 gm PO DAILY packet 12/29/23 [Rx] Follow up Appointment(s)/Referral(s): Wai Mcdonough MD [STAFF PHYSICIAN] - 1 Week Kristine Pena MD [Primary Care Provider] - 1-2 days Activity/Diet/Wound Care/Special Instructions: Activity as tolerated Diet heart healthy Patient to be DC'd with Munoz catheter and follow-up with urology services Discharge Disposition: TRANSFER TO SNF/ECF
[2023-12-29] MEDS: bisacodyL 10 MG SUPP RECTAL STA (15:25)
[2023-12-29 15:36] VITALS: PULSE 76
== END 2023-12-29 16:18 | DRG 388 ==
LOC: EC 10:17 → 4SSUR 12:42 → 2SICU 17:14 → 3SCARD 12-23 14:04
PROVIDERS: ADMIT Internal Medicine; ATTEND Internal Medicine
PROC: 02HV33Z Insertion of Infusion Device into Superior Vena Cava, Percutaneous Approach (ICD-10-PCS; principal; 2023-12-15)
PROC: B5181ZA Fluoroscopy of Superior Vena Cava using Low Osmolar Contrast, Guidance (ICD-10-PCS; 2023-12-15)
PROC: B548ZZA Ultrasonography of Superior Vena Cava, Guidance (ICD-10-PCS; 2023-12-15)
PROC: 4A133B1 Monitoring of Arterial Pressure, Peripheral, Percutaneous Approach (ICD-10-PCS; 2023-12-15)
PROC: 4A133J1 Monitoring of Arterial Pulse, Peripheral, Percutaneous Approach (ICD-10-PCS; 2023-12-15)
PROC: 03HY32Z Insertion of Monitoring Device into Upper Artery, Percutaneous Approach (ICD-10-PCS; 2023-12-15)
PROC: 0D9670Z Drainage of Stomach with Drainage Device, Via Natural or Artificial Opening (ICD-10-PCS; 2023-12-15)
PROC: 3E033XZ Introduction of Vasopressor into Peripheral Vein, Percutaneous Approach (ICD-10-PCS; 2023-12-15)
DX: K56.7 Ileus, unspecified (principal); J96.01 Acute respiratory failure with hypoxia; N17.0 Acute kidney failure with tubular necrosis; N13.30 Unspecified hydronephrosis; I50.32 Chronic diastolic (congestive) heart failure; E87.1 Hypo-osmolality and hyponatremia; I69.354 Hemiplegia and hemiparesis following cerebral infarction affecting left non-dominant side; I11.0 Hypertensive heart disease with heart failure; R00.1 Bradycardia, unspecified; E78.5 Hyperlipidemia, unspecified; E87.5 Hyperkalemia; F17.210 Nicotine dependence, cigarettes, uncomplicated; I95.89 Other hypotension; I48.0 Paroxysmal atrial fibrillation; Z79.01 Long term (current) use of anticoagulants; D63.8 Anemia in other chronic diseases classified elsewhere; E86.0 Dehydration; E86.1 Hypovolemia; E87.6 Hypokalemia; R33.8 Other retention of urine; N40.1 Benign prostatic hyperplasia with lower urinary tract symptoms; G47.33 Obstructive sleep apnea (adult) (pediatric); I08.2 Rheumatic disorders of both aortic and tricuspid valves; I45.10 Unspecified right bundle-branch block; N31.9 Neuromuscular dysfunction of bladder, unspecified; Z91.81 History of falling; Z79.02 Long term (current) use of antithrombotics/antiplatelets; Z79.82 Long term (current) use of aspirin; Z90.79 Acquired absence of other genital organ(s); Z87.81 Personal history of (healed) traumatic fracture
CPT/HCPCS: 36415; 51798; 71045; 71250; 74019; 74176; 80048; 80053; 82150; 82533; 82550; 82805; 83605; 83690; 83735; 83880; 84100; 84132; 84295; 84443; 84484; 85025; 85027; 85610; 85730; 87070; 87205; 87324; 93005; 93308; 94640; 94660; 94760; 96361; 96372; 96374; 96375; 99285

== ENCOUNTER 2024-03-14 06:02 | Inpatient (IN) | payer MEDICARE ==
--- NOTE | 2024-03-14 06:29 | ED ---
SOB HPI - General Chief Complaint: Shortness of Breath Stated Complaint: SHERIF Time Seen by Provider: 03/14/24 06:05 Source: patient, EMS, RN notes reviewed Mode of arrival: EMS Limitations: no limitations - History of Present Illness Initial Comments: This is a 78-year-old male who presents to the emergency department for shortness of breath. States that it started early this morning. He first called EMS several hours ago and when EMS arrived the patient was satting at 60% on room air. He refused transport at that time and ended up calling back a few hours later. This time he was satting 50% on room air and was agreeable to transfer. Denies any recent illnesses, coughing, or congestion. Denies any chest pain associated with this either. Denies any history of similar symptoms in the past. Patient is currently on a nonrebreather. Denies any history of COPD. When patient son arrived, he provided some more information. He advised that up until last night he was doing fine. He had not not been sick and did not have any complaints. Throughout the evening he noticed that his father seemed to have more difficulty breathing as well as weakness and difficulty ambulating and getting around. MD Complaint: shortness of breath - Related Data Allergies Allergy/AdvReac Type Severity Reaction Status Date / Time No Known Allergies Allergy Verified 03/14/24 06:05 Review of Systems ROS Statement: Those systems with pertinent positive or pertinent negative responses have been documented in the HPI. ROS Other: All systems not noted in ROS Statement are negative. Past Medical History Past Medical History: No Reported History Additional Past Surgical History / Comment(s): femur 01/2024 Smoking Status: Former smoker Past Alcohol Use History: None Reported Past Drug Use History: None Reported General Exam Limitations: no limitations General appearance: alert, in no apparent distress Head exam: Present: atraumatic, normocephalic, normal inspection Respiratory exam: Present: wheezes, decreased breath sounds, prolonged expiratory Cardiovascular Exam: Present: normal rhythm, bradycardia Neurological exam: Present: alert, oriented X3, CN II-XII intact Psychiatric exam: Present: normal affect, normal mood Skin exam: Present: warm, dry, intact, normal color. Absent: rash Course Vital Signs 03/14/24 03/14/24 03/14/24 06:06 07:00 07:37 Temperature 97.1 F L Pulse Rate 58 L 54 L Respiratory 19 20 Rate Blood Pressure 148/77 145/70 O2 Sat by Pulse 86 L 94 L Oximetry Fraction of 50 Inspired Oxygen (FIO2) 03/14/24 03/14/24 03/14/24 08:00 08:03 08:17 Temperature Pulse Rate 58 L 53 L Respiratory Rate Blood Pressure O2 Sat by Pulse Oximetry Fraction of 50 Inspired Oxygen (FIO2) 03/14/24 08:33 Temperature Pulse Rate 54 L Respiratory 22 Rate Blood Pressure 126/52 O2 Sat by Pulse 92 L Oximetry Fraction of Inspired Oxygen (FIO2) Medical Decision Making - Medical Decision Making This is a 78 year old male who presents to the emergency department for shortness of breath. Was pt. sent in by a medical professional or institution? @ -No Did you speak to anyone other than the patient for history? @ -No Did you review nursing and triage notes? @ -Yes, and I agree, it is accurate with regards to the patient's symptoms. Were old charts reviewed? @ -Echocardiogram from 12/16/2023 demonstrating normal left ventricular size and function with an ejection fraction of 60%. Differential Diagnosis? @ -Differential Dyspnea: Coronary syndrome, arrhythmia, tamponade, asthma, COPD, pulmonary embolism, pneumonia, pneumothorax, pulmonary effusion, anaphylaxis, diabetic ketoacidosis, flailed chest, pulmonary contusion, diaphragmatic rupture, anemia, neuromuscular, this is not meant to be an all-inclusive list. EKG interpreted by me (3pts min.)? @ -EKG interpreted by me demonstrating the following: Sinus bradycardia. Ventricular rate 56 bpm, OH interval 229 ms, QRS duration 162 ms, QTc 445 ms. X-rays interpreted by me (1pt min.)? @ -Chest x-ray obtained. My interpretation identifies bilateral airspace opacities. CT interpreted by me (1pt min.)? @ -CTA of the chest obtained. Interpretation identifies bilateral pleural effusions. U/S interpreted by me (1pt. min.)? @ -Not obtained What testing was considered but not performed? (CT, X-rays, U/S, labs)? Why? @ -None What meds were considered but not given? Why? @ -None Did you discuss the management of the patient with other professionals? @ -Yes, Dr. Pena, who accepts the patient for admission. Did you reconcile home meds? @ -No Was smoking cessation discussed for >3mins.? @ -No Was critical care preformed (if so, how long)? @ -No Were there social determinants of health that impacted care today? How? (Homelessness, low income, unemployed, alcoholism, drug addiction, transportation, low edu. Level, literacy, decrease access to med. care, [facility], rehab)? @ -No Was there de-escalation of care discussed even if they declined? (Discuss DNR or withdrawal of care, Hospice)? @ -No What co-morbidities impacted this encounter? (DM, HTN, Smoking, COPD, CAD, Cancer, CVA, Hep., AIDS, mental health diagnosis, sleep apnea, morbid obesity)? @ -HTN, HLD, A-fib Was patient admitted / discharged? @ -Admitted. On arrival, patient was on a nonrebreather. ABG was obtained demonstrating CO2 retention, and patient was switched to BiPAP. Denies a previous diagnosis of COPD. Lab work demonstrates an elevated BNP of 2540. D- dimer elevated at 1.41. COVID, influenza, and RSV testing negative. Chest x- ray demonstrates diffuse bilateral patchy and confluent airspace opacities and small bilateral pleural effusions suggestive of CHF with bilateral pulmonary edema. 40 mg of IV Lasix administered. There is also the possibility of an infectious component, and he was subsequently started on the pneumonia protocol with ceftriaxone and azithromycin. Blood and sputum cultures obtained. Procalcitonin level ordered as well. CTA of the chest obtained due to patient's symptoms with elevated D-dimer. Radiology advised that assessment was limited due to motion artifact and suboptimal enhancement. No central PE was identified, however they cannot exclude a right middle lobe distal branch PE. He is also noted to have large bilateral pleural effusions with diffuse airspace disease and they advised correlation for diffuse pneumonia or pulmonary edema. In discussion with ED attending, Dr. Castelan, he advised holding heparin for now and having the patient resume his home eliquis. Patient admitted to medicine for pulmonary edema and acute hypoxic respiratory failure. Consult placed for pulmonology. Undiagnosed new problem with uncertain prognosis? @ -None Drug Therapy requiring intensive monitoring for toxicity (Heparin, Nitro, Insulin, Cardizem)? @ -None Were any procedures done? @ -None Diagnosis/symptom? @ -Pulmonary edema, acute hypoxic respiratory failure Acute, or Chronic, or Acute on Chronic? @ -Acute Uncomplicated (without systemic symptoms) or Complicated (systemic symptoms)? @ -Complicated Side effects of treatment? @ -None Exacerbation, Progression, or Severe Exacerbation] @ -Not applicable Poses a threat to life or bodily function? @ -Yes, can lead to respiratory failure and - Lab Data Result diagrams: 03/14/24 06:20 03/14/24 06:20 Lab Results 03/14/24 03/14/24 03/14/24 Range/Units 06:20 06:20 06:20 WBC 6.0 (3.8-10.6) k/uL RBC 3.86 L (4.30-5.90) m/uL Hgb 10.3 L (13.0-17.5) gm/dL Hct 34.8 L (39.0-53.0) % MCV 90.3 (80.0-100.0) fL MCH 26.8 (25.0-35.0) pg MCHC 29.7 L (31.0-37.0) g/dL RDW 14.7 (11.5-15.5) % Plt Count 307 (150-450) k/uL MPV 6.6 Neutrophils % 83 % Lymphocytes % 9 % Monocytes % 6 % Eosinophils % 1 % Basophils % 0 % Neutrophils # 5.0 (1.3-7.7) k/uL Lymphocytes # 0.5 L (1.0-4.8) k/uL Monocytes # 0.4 (0-1.0) k/uL Eosinophils # 0.1 (0-0.7) k/uL Basophils # 0.0 (0-0.2) k/uL Hypochromasia Marked PT 11.0 (10.0-12.5) sec INR 1.0 (<1.2) APTT 28.2 (22.0-30.0) sec D-Dimer 1.41 H (<0.60) mg/L FEU Sample Site ABG pH (7.35-7.45) ABG pCO2 (35-45) mmHg ABG pO2 (83-108) mmHg ABG HCO3 (21-25) mmol/L ABG Total CO2 (19-24) mmol/L ABG O2 Saturation (94-97) % ABG Base Excess mmol/L Dima Test Hemoglobin (13.0-17.5) gm/dL FiO2 % Sodium 139 (137-145) mmol/L Potassium 4.5 (3.5-5.1) mmol/L Chloride 101 (98-107) mmol/L Carbon Dioxide 33 H (22-30) mmol/L Anion Gap 5 mmol/L BUN 28 H (9-20) mg/dL Creatinine 0.90 (0.66-1.25) mg/dL Est GFR (CKD-EPI)AfAm >90 (>60 ml/min/1.73 sqM) Est GFR (CKD-EPI)NonAf 83 (>60 ml/min/1.73 sqM) Glucose 110 H (74-99) mg/dL Plasma Lactic Acid Ayad (0.7-2.0) mmol/L Calcium 8.6 (8.4-10.2) mg/dL Magnesium 2.6 H (1.6-2.3) mg/dL Total Bilirubin 0.2 (0.2-1.3) mg/dL AST 27 (17-59) U/L ALT 14 (4-49) U/L Alkaline Phosphatase 93 (38-126) U/L Troponin I (0.000-0.034) ng/mL NT-Pro-B Natriuret Pep 2540 pg/mL Total Protein 6.4 (6.3-8.2) g/dL Albumin 3.2 L (3.5-5.0) g/dL Influenza Type A (PCR) (Not Detectd) Influenza Type B (PCR) (Not Detectd) RSV (PCR) (Not Detectd) SARS-CoV-2 (PCR) (Not Detectd) 03/14/24 03/14/24 03/14/24 Range/Units 06:20 06:20 06:43 WBC (3.8-10.6) k/uL RBC (4.30-5.90) m/uL Hgb (13.0-17.5) gm/dL Hct (39.0-53.0) % MCV (80.0-100.0) fL MCH (25.0-35.0) pg MCHC (31.0-37.0) g/dL RDW (11.5-15.5) % Plt Count (150-450) k/uL MPV Neutrophils % % Lymphocytes % % Monocytes % % Eosinophils % % Basophils % % Neutrophils # (1.3-7.7) k/uL Lymphocytes # (1.0-4.8) k/uL Monocytes # (0-1.0) k/uL Eosinophils # (0-0.7) k/uL Basophils # (0-0.2) k/uL Hypochromasia PT (10.0-12.5) sec INR (<1.2) APTT (22.0-30.0) sec D-Dimer (<0.60) mg/L FEU Sample Site Left Radial ABG pH 7.22 L (7.35-7.45) ABG pCO2 85 H* (35-45) mmHg ABG pO2 171 H (83-108) mmHg ABG HCO3 35 H (21-25) mmol/L ABG Total CO2 37 H (19-24) mmol/L ABG O2 Saturation 99.7 H (94-97) % ABG Base Excess 5.0 mmol/L Dima Test Yes Hemoglobin 10.1 L (13.0-17.5) gm/dL FiO2 100 % Sodium (137-145) mmol/L Potassium (3.5-5.1) mmol/L Chloride (98-107) mmol/L Carbon Dioxide (22-30) mmol/L Anion Gap mmol/L BUN (9-20) mg/dL Creatinine (0.66-1.25) mg/dL Est GFR (CKD-EPI)AfAm (>60 ml/min/1.73 sqM) Est GFR (CKD-EPI)NonAf (>60 ml/min/1.73 sqM) Glucose (74-99) mg/dL Plasma Lactic Acid Ayad 0.9 (0.7-2.0) mmol/L Calcium (8.4-10.2) mg/dL Magnesium (1.6-2.3) mg/dL Total Bilirubin (0.2-1.3) mg/dL AST (17-59) U/L ALT (4-49) U/L Alkaline Phosphatase (38-126) U/L Troponin I 0.013 (0.000-0.034) ng/mL NT-Pro-B Natriuret Pep pg/mL Total Protein (6.3-8.2) g/dL Albumin (3.5-5.0) g/dL Influenza Type A (PCR) (Not Detectd) Influenza Type B (PCR) (Not Detectd) RSV (PCR) (Not Detectd) SARS-CoV-2 (PCR) (Not Detectd) 03/14/24 Range/Units 07:01 WBC (3.8-10.6) k/uL RBC (4.30-5.90) m/uL Hgb (13.0-17.5) gm/dL Hct (39.0-53.0) % MCV (80.0-100.0) fL MCH (25.0-35.0) pg MCHC (31.0-37.0) g/dL RDW (11.5-15.5) % Plt Count (150-450) k/uL MPV Neutrophils % % Lymphocytes % % Monocytes % % Eosinophils % % Basophils % % Neutrophils # (1.3-7.7) k/uL Lymphocytes # (1.0-4.8) k/uL Monocytes # (0-1.0) k/uL Eosinophils # (0-0.7) k/uL Basophils # (0-0.2) k/uL Hypochromasia PT (10.0-12.5) sec INR (<1.2) APTT (22.0-30.0) sec D-Dimer (<0.60) mg/L FEU Sample Site ABG pH (7.35-7.45) ABG pCO2 (35-45) mmHg ABG pO2 (83-108) mmHg ABG HCO3 (21-25) mmol/L ABG Total CO2 (19-24) mmol/L ABG O2 Saturation (94-97) % ABG Base Excess mmol/L Dima Test Hemoglobin (13.0-17.5) gm/dL FiO2 % Sodium (137-145) mmol/L Potassium (3.5-5.1) mmol/L Chloride (98-107) mmol/L Carbon Dioxide (22-30) mmol/L Anion Gap mmol/L BUN (9-20) mg/dL Creatinine (0.66-1.25) mg/dL Est GFR (CKD-EPI)AfAm (>60 ml/min/1.73 sqM) Est GFR (CKD-EPI)NonAf (>60 ml/min/1.73 sqM) Glucose (74-99) mg/dL Plasma Lactic Acid Ayad (0.7-2.0) mmol/L Calcium (8.4-10.2) mg/dL Magnesium (1.6-2.3) mg/dL Total Bilirubin (0.2-1.3) mg/dL AST (17-59) U/L ALT (4-49) U/L Alkaline Phosphatase (38-126) U/L Troponin I (0.000-0.034) ng/mL NT-Pro-B Natriuret Pep pg/mL Total Protein (6.3-8.2) g/dL Albumin (3.5-5.0) g/dL Influenza Type A (PCR) Not Detected (Not Detectd) Influenza Type B (PCR) Not Detected (Not Detectd) RSV (PCR) Not Detected (Not Detectd) SARS-CoV-2 (PCR) Not Detected (Not Detectd) - Radiology Data Radiology results: report reviewed, image reviewed Disposition Clinical Impression: Pulmonary edema, Acute hypoxic respiratory failure Disposition: ADMITTED IP TO THIS [facility] Referrals: Kristine Pena MD [Primary Care Provider] - 1-2 days
[2024-03-14 06:46] LABS: ABG HCO3 35 mmol/L (21-25); ABG Oxygen Saturation 99.7 % (94-97); ABG PH 7.22 (7.35-7.45); ABG PO2 171 mmHg (83-108); ABG TCO2 37 mmol/L (19-24); Allen Test Performed? Yes
[2024-03-14 06:55] LABS: Basophils % (A) 0 %; Eosinophils # (A) 0.1 k/uL (0-0.7); Eosinophils % (A) 1 %; HCT 34.8 % (39.0-53.0); HGB 10.3 gm/dL (13.0-17.5); Hypochromasia Marked; Lymphocytes # (A) 0.5 k/uL (1.0-4.8); Lymphocytes % (A) 9 %; MCH 26.8 pg (25.0-35.0); MCHC 29.7 g/dL (31.0-37.0); MCV 90.3 fL (80.0-100.0); Mean Platelet Volume 6.6; Monocytes # (A) 0.4 k/uL (0-1.0); Monocytes % (A) 6 %; Neutrophils % (A) 83 %; Platelet Count 307 k/uL (150-450); RBC 3.86 m/uL (4.30-5.90); RDW 14.7 % (11.5-15.5)
[2024-03-14 07:04] LABS: ABG PCO2 85 mmHg (35-45)
[2024-03-14 07:10] LABS: ALT 14 U/L (4-49); AST 27 U/L (17-59); African American GFR (CKD) >90 (>60 ml/min/1.73 sqM); Albumin 3.2 g/dL (3.5-5.0); Alkaline Phosphatase 93 U/L (38-126); Anion Gap 5 mmol/L; Blood Urea Nitrogen 28 mg/dL (9-20); Calcium 8.6 mg/dL (8.4-10.2); Carbon Dioxide 33 mmol/L (22-30); Chloride 101 mmol/L (98-107); Glucose 110 mg/dL (74-99); Magnesium 2.6 mg/dL (1.6-2.3); Non-African American GFR(CKD) 83 (>60 ml/min/1.73 sqM); Potassium 4.5 mmol/L (3.5-5.1); Sodium 139 mmol/L (137-145); Total Bilirubin 0.2 mg/dL (0.2-1.3); Total Protein 6.4 g/dL (6.3-8.2)
[2024-03-14 07:13] LABS: Partial Thromboplastin Time 28.2 sec (22.0-30.0)
[2024-03-14 07:18] LABS: NT-Pro-B-Type Natriuretic Pept 2540 pg/mL
[2024-03-14] MEDS ORDERED: PNEUMONIA PROTOCOL UTILIZED 1 EACH MISC PO PRN (07:27)
--- NOTE | 2024-03-14 07:36 | XR ---
EXAMINATION TYPE: XR chest 2V DATE OF EXAM: 03/14/2024 6:29 AM COMPARISON: 12/24/2023 CLINICAL INDICATION: Male, 78 years old with shortness of breath, history of difficulty breathing, , TECHNIQUE: AP and lateral views FINDINGS: The heart is enlarged. Diffuse bilateral patchy and confluent airspace opacities worsened from 024. Small bilateral pleural effusions are also present. IMPRESSION: Correlate for CHF with bilateral pulmonary edema. Small pleural effusions. [facility], , 03/14/2024 7:34 AM
[2024-03-14] MEDS: FUROSEMIDE 10 MG/ML 4 ML VIAL IV STA (07:48)
[2024-03-14] MEDS: IPRATROPIUM-ALBUTEROL 3 ML NEB INHALATION STA (08:02)
[2024-03-14] MEDS ORDERED: HYDROcodone/APAP 5-325MG 1 EACH TAB PO PRN (08:25)
[2024-03-14] MEDS ORDERED: NALOXONE 0.4 MG/ML 1 ML VIAL IV PRN (08:25)
[2024-03-14] MEDS ORDERED: ACETAMINOPHEN TAB 325 MG TAB PO PRN (08:25)
[2024-03-14] MEDS ORDERED: MORPHINE SULFATE 4 MG/ML SYRINGE IV PRN (08:25)
[2024-03-14] MEDS ORDERED: ONDANSETRON 4 MG/2 ML VIAL IVP PRN (08:25)
[2024-03-14] MEDS: AZITHROMYCIN 500 MG in SODIUM CHLORIDE 0.9% 250 ML IVPB STA (08:55)
--- NOTE | 2024-03-14 09:07 | CT ---
EXAMINATION TYPE: CT chest angio for PE DATE OF EXAM: 03/14/2024 COMPARISON: 12/18/2023 CLINICAL INDICATION: Male, 78 years old with history of SHERIF, elevated d-dimer; PHH, ELEVATED -DIMER, SOB or PAIN TECHNIQUE: Ct angiogram of the chest performed with with IV Contrast, patient injected with 80 mL of Isovue 370. MIP images are created and reviewed. CT DLP: 765.[address] CTDI: mGy Automated exposure control for dose reduction was used. FINDINGS: LUNGS: Diffuse bilateral airspace disease with pleural effusions. Could be in the basis of diffuse pn eumonia or pulmonary edema. Underlying neoplasm is No pneumothorax. MEDIASTINUM: Limited assessment for pulmonary embolism due to suboptimal enhancement and respiratory motion. There is no large saddle embolism or central pulmonary embolism. Cannot exclude third order d istal cannot exclude a right middle lobe distal branch pulmonary embolism. Reference image 79 series 401. Results of the exam were discussed with Kaitlin Christopher 9:04 AM 03/14/2014 A trace of pericardial fluid. The heart is mildly enlarged and there is coronary artery calcificatio n. Atherosclerotic change of aorta but no evidence of aneurysm. Calcifications aortic root near the aortic valve is incidentally noted. Mild RV strain in the differe ntial diagnosis. OTHER: Multilevel hypertrophic and degenerative changes spine. IMPRESSION: 1. Limited assessment for pulmonary embolism due to motion artifact and suboptimal enhancement. There is no central pulmonary embolism. However, cannot exclude a right middle lobe distal branch PE, helen elate clinically. 2. Large bilateral pleural effusion with diffuse airspace disease correlate for diffuse pneumonia or pulmonary edema. Follow-up recommendations for incidental pulmonary nodules are per [employer] or [employer]. [facility], , 03/14/2024 9:05 AM
[2024-03-14] MEDS ORDERED: HEPARIN SODIUM 1,000 UN/ML (10ML VL) IV PRN (09:08)
[2024-03-14] MEDS ORDERED: HEPARIN SOD,PORK IN 0.45% NACL 25,000 UNIT in 0.45% NACL 1 250ML.BAG IV SCH (09:15)
[2024-03-14] MEDS: HEPARIN SODIUM 1,000 UN/ML (10ML VL) IV ONE (09:34)
[2024-03-14] MEDS: PANTOPRAZOLE 40 MG/10 ML VIAL IV SCH (10:08)
--- NOTE | 2024-03-14 10:12 | P.HPIM ---
History of Present Illness H&P Date: 03/14/24 Chevy French is a 78-year-old male patient who presented with complaints of shortness of breath per patient and family symptoms started about a week ago but significantly increased this morning and EMS was called patient was found to be satting 60% on room air patient denies any recent illness or chest pain. Patient has a past medical history of femur fracture in January 2024 with repair chest x-ray was completed showing correlation for CHF with bilateral pulmonary edema small pleural effusions CTA of the chest performed showing limited assessment for pulmonary embolism due to motion artifact and suboptimal enhancement large bilateral pleural effusion with diffuse airspace disease correlation for diffuse pneumonia or pulmonary edema. ABGs performed showing pH of 7.22, pCO2 of 85, pO2 of 171 and sodium bicarb 35. Patient was started on BiPAP in ER patient also started on IV antibiotics. Influenza RSV and COVID-19 negative. At this time patient will be admitted pulmonary services consulted Review of Systems Refer to HPI otherwise unremarkable Past Medical History Past Medical History: No Reported History Additional Past Surgical History / Comment(s): femur 01/2024 Smoking Status: Former smoker Past Alcohol Use History: None Reported Past Drug Use History: None Reported Medications and Allergies Home Medications Medication Instructions Recorded Confirmed Type Amiodarone [Cordarone] 200 mg PO DAILY 03/14/24 03/14/24 History Apixaban [Eliquis] 5 mg PO BID 03/14/24 03/14/24 History Atorvastatin [Lipitor] 40 mg PO DAILY 03/14/24 03/14/24 History Bumetanide [Bumex] 1 mg PO DAILY 03/14/24 03/14/24 History Metoprolol Tartrate [Lopressor] 25 mg PO DAILY 03/14/24 03/14/24 History Tamsulosin [Flomax] 0.4 mg PO BID 03/14/24 03/14/24 History Allergies Allergy/AdvReac Type Severity Reaction Status Date / Time No Known Allergies Allergy Verified 03/14/24 09:31 Physical Exam Vitals: Vital Signs Temp Pulse Resp BP Pulse Ox FiO2 03/14/24 08:33 54 L 22 126/52 92 L 03/14/24 08:17 53 L 03/14/24 08:03 58 L 03/14/24 08:00 50 03/14/24 07:37 54 L 20 145/70 94 L 03/14/24 07:00 50 03/14/24 06:06 97.1 F L 58 L 19 148/77 86 L Intake and Output 03/13/24 03/14/24 03/14/24 22:59 06:59 14:59 Other: Weight 90.718 kg Head normocephalic Neck supple Lungs diminished bilaterally Heart regular rate and rhythm S1-S2, no rub or gallop Abdomen is soft nontender nondistended positive bowel sounds no hepatosplenomegaly Extremities no edema Neuro alert and orientated to 3 Results CBC & Chem 7: 03/14/24 06:20 03/14/24 06:20 Labs: Abnormal Lab Results - Last 24 Hours (Table) 03/14/24 03/14/24 03/14/24 Range/Units 06:20 06:20 06:20 RBC 3.86 L (4.30-5.90) m/uL Hgb 10.3 L (13.0-17.5) gm/dL Hct 34.8 L (39.0-53.0) % MCHC 29.7 L (31.0-37.0) g/dL Lymphocytes # 0.5 L (1.0-4.8) k/uL D-Dimer 1.41 H (<0.60) mg/L FEU ABG pH (7.35-7.45) ABG pCO2 (35-45) mmHg ABG pO2 (83-108) mmHg ABG HCO3 (21-25) mmol/L ABG Total CO2 (19-24) mmol/L ABG O2 Saturation (94-97) % Hemoglobin (13.0-17.5) gm/dL Carbon Dioxide 33 H (22-30) mmol/L BUN 28 H (9-20) mg/dL Glucose 110 H (74-99) mg/dL Magnesium 2.6 H (1.6-2.3) mg/dL Albumin 3.2 L (3.5-5.0) g/dL 03/14/24 Range/Units 06:43 RBC (4.30-5.90) m/uL Hgb (13.0-17.5) gm/dL Hct (39.0-53.0) % MCHC (31.0-37.0) g/dL Lymphocytes # (1.0-4.8) k/uL D-Dimer (<0.60) mg/L FEU ABG pH 7.22 L (7.35-7.45) ABG pCO2 85 H* (35-45) mmHg ABG pO2 171 H (83-108) mmHg ABG HCO3 35 H (21-25) mmol/L ABG Total CO2 37 H (19-24) mmol/L ABG O2 Saturation 99.7 H (94-97) % Hemoglobin 10.1 L (13.0-17.5) gm/dL Carbon Dioxide (22-30) mmol/L BUN (9-20) mg/dL Glucose (74-99) mg/dL Magnesium (1.6-2.3) mg/dL Albumin (3.5-5.0) g/dL Assessment and Plan Assessment: 1. Shortness of breath secondary to increased pulmonary edema and possible pneumonia 2. Acute hypercapnic respiratory failure patient started on BiPAP 3. History of left femur fracture with repair in January 2024 4. History of urinary retention follows with urology services outpatient At this time patient will be admitted Patient started on IV antibiotics Patient started on BiPAP Pulmonary services have been consulted Repeat labs ordered Time with Patient: Greater than 30 (Greater than 60% of the total time spent in counseling and coordination of care)
--- NOTE | 2024-03-14 13:24 | P.CNPUL ---
History of Present Illness Consult date: 03/14/24 Requesting physician: Kristine Pena Reason for consult: dyspnea, hypoxemia, abnormal CXR/CT Chief complaint: Shortness of breath, weakness History of present illness: This is a 78-year-old male patient with a known history of atrial fibrillation anticoagulated with Eliquis, hypertension, hyperlipidemia, BPH and recent femur fracture. He was brought in here early this morning after having complaints of increasing shortness of breath. Upon arrival by EMS they found him to have an O2 saturation of 60% and initially had refused treatment. They were called back a couple hours later and the patient was brought into the emergency room about 6:00 this morning. Chest x-ray revealed bilateral pulmonary edema with small pleural effusions consistent with congestive heart failure. CT angiogram ruled out central pulmonary embolism. There is large bilateral pleural effusions with diffuse airspace disease possible pneumonia versus pulmonary edema. White count 6.0. Hemoglobin 10.3. Platelets 307. D-dimer 1.47. INR 1.0. Sodium 139. Potassium 4.5. Bicarb 33. BUN 28. Creatinine 0.90. Glucose 110. proBNP 2540. Viral screen was negative. Troponin negative x 1. Arterial blood gases on 100% FiO2 revealed a PaO2 of 171. pCO2 85. pH 7.22. He is placed on BiPAP currently 14/6 and 50% FiO2. He is afebrile. Bradycardic in the 50s. Blood pressure stable. Mean arterial pressure in the 70s. He is seen today in consultation in the emergency department. He is awake and alert. He is asking to go home. He is continued on BiPAP. He was initiated on ceftriaxone. Continued on Bumex. Anticoagulated with Eliquis. Review of Systems REVIEW OF SYSTEMS: CONSTITUTIONAL: Denies any recent significant weight loss or weight gain. EYES: Denies change in vision. EARS, NOSE, MOUTH, THROAT: Denies headaches, denies sore throat. CARDIOVASCULAR: Denies chest pain, palpitations or syncopal episodes. RESPIRATORY: Positive for shortness of breath, cough, congestion no hemoptysis. GASTROINTESTINAL: Denies change in appetite, denies abdominal pain GENITOURINARY: Denies hematuria, denies infections. MUSKULOSKELETAL: Denies pain, denies swelling. INTEGUMENTARY: Denies rash, denies eczema. NEUROLOGICAL: Denies recent memory loss, no recent seizure activity. PSYCHIATRIC: Denies anxiety, denies depression. HEMATOLOGIC/LYMPHATIC: Denies anemia, denies enlarged lymph nodes. Past Medical History Past Medical History: No Reported History Additional Past Surgical History / Comment(s): femur 01/2024 Smoking Status: Former smoker Past Alcohol Use History: None Reported Past Drug Use History: None Reported Medications and Allergies Home Medications Medication Instructions Recorded Confirmed Type Amiodarone [Cordarone] 200 mg PO DAILY 03/14/24 03/14/24 History Apixaban [Eliquis] 5 mg PO BID 03/14/24 03/14/24 History Atorvastatin [Lipitor] 40 mg PO DAILY 03/14/24 03/14/24 History Bumetanide [Bumex] 1 mg PO DAILY 03/14/24 03/14/24 History Metoprolol Tartrate [Lopressor] 25 mg PO DAILY 03/14/24 03/14/24 History Tamsulosin [Flomax] 0.4 mg PO BID 03/14/24 03/14/24 History Allergies Allergy/AdvReac Type Severity Reaction Status Date / Time No Known Allergies Allergy Verified 03/14/24 09:31 Physical Exam Vitals: Vital Signs Temp Pulse Resp BP Pulse Ox FiO2 03/14/24 11:54 50 03/14/24 11:00 54 L 18 112/49 96 03/14/24 08:33 54 L 22 126/52 92 L 03/14/24 08:17 53 L 03/14/24 08:03 58 L 03/14/24 08:00 50 03/14/24 07:37 54 L 20 145/70 94 L 03/14/24 07:00 50 03/14/24 06:06 97.1 F L 58 L 19 148/77 86 L Intake and Output 03/13/24 03/14/24 03/14/24 22:59 06:59 14:59 Other: Weight 90.718 kg GENERAL EXAM: Alert, 78-year-old male, on BiPAP, in mild respiratory distress. HEAD: Normocephalic. EYES: Normal reaction of pupils, equal size. NOSE: Clear with pink turbinates. THROAT: No erythema or exudates. NECK: No masses, no JVD. CHEST: No chest wall deformity. LUNGS: Equal air entry with crackles in the bilateral bases, diminished. CVS: S1 and S2 normal with an audible murmur, regular rhythm. ABDOMEN: No hepatosplenomegaly, normal bowel sounds, no guarding or rigidity. SPINE: No scoliosis or deformity SKIN: No rashes CENTRAL NERVOUS SYSTEM: No focal deficits, tone is normal in all 4 extremities. EXTREMITIES: There is 2+ peripheral edema. Bruising over right knee. No clubbing, no cyanosis. Peripheral pulses are intact. Results - Laboratory Findings CBC and BMP: 03/14/24 06:20 03/14/24 06:20 ABG ABG pH 7.22 (7.35-7.45) L 03/14/24 06:43 ABG pCO2 85 mmHg (35-45) H* 03/14/24 06:43 ABG pO2 171 mmHg (83-108) H 03/14/24 06:43 ABG O2 Saturation 99.7 % (94-97) H 03/14/24 06:43 PT/INR, D-dimer PT 11.0 sec (10.0-12.5) 03/14/24 06:20 INR 1.0 (<1.2) 03/14/24 06:20 D-Dimer 1.41 mg/L FEU (<0.60) H 03/14/24 06:20 Abnormal lab findings: Abnormal Labs 03/14/24 03/14/24 03/14/24 06:20 06:20 06:20 RBC 3.86 L Hgb 10.3 L Hct 34.8 L MCHC 29.7 L Lymphocytes # 0.5 L D-Dimer 1.41 H ABG pH ABG pCO2 ABG pO2 ABG HCO3 ABG Total CO2 ABG O2 Saturation Hemoglobin Carbon Dioxide 33 H BUN 28 H Glucose 110 H Magnesium 2.6 H Albumin 3.2 L 03/14/24 06:43 RBC Hgb Hct MCHC Lymphocytes # D-Dimer ABG pH 7.22 L ABG pCO2 85 H* ABG pO2 171 H ABG HCO3 35 H ABG Total CO2 37 H ABG O2 Saturation 99.7 H Hemoglobin 10.1 L Carbon Dioxide BUN Glucose Magnesium Albumin - Diagnostic Findings Chest x-ray: image reviewed CT scan - chest: image reviewed Assessment and Plan Assessment: Acute hypoxemic and hypercapnic respiratory failure secondary to an acute exacerbation of suspected systolic versus diastolic congestive heart failure and valvular heart disease History of atrial fibrillation, anticoagulated with Eliquis Recent femur fracture requiring hospitalization and subsequent placement at [facility] then discharged to home Benign prostatic hyperplasia Hypertension Hyperlipidemia Plan: The patient was seen and evaluated Chest x-ray, CT angiogram, labs and medications reviewed Continue ceftriaxone for now Check a procalcitonin Discontinue Bumex Add Lasix 40 mg IV every 8 hours Obtain an echocardiogram Cardiology consult Continue Eliquis Titrate down the FiO2 as tolerated We will continue to follow and make further recommendations based on his clinical status I have personally seen and examined the patient, performed the documentation and the assessment and plan as written. Number of minutes spent on the visit: 20 Dictation was produced using [employer] dictation software. Please excuse any grammatical, word or spelling errors.
[2024-03-14] MEDS: APIXABAN 5 MG TAB PO SCH (16:41)
[2024-03-14] MEDS: FUROSEMIDE 10 MG/ML 4 ML VIAL IV SCH (16:44)
[2024-03-14] MEDS: TAMSULOSIN 0.4 MG CAP.ER.24H PO SCH (20:34)
[2024-03-15 07:51] LABS: HCT 35.9 % (39.0-53.0); HGB 10.4 gm/dL (13.0-17.5); Hypochromasia Marked; MCH 27.1 pg (25.0-35.0); MCHC 29.1 g/dL (31.0-37.0); Mean Platelet Volume 6.6; Platelet Count 312 k/uL (150-450); RBC 3.86 m/uL (4.30-5.90); RDW 14.6 % (11.5-15.5); WBC 5.9 k/uL (3.8-10.6)
[2024-03-15 08:07] LABS: ALT 17 U/L (4-49); AST 31 U/L (17-59); African American GFR (CKD) 74 (>60 ml/min/1.73 sqM); Albumin 3.3 g/dL (3.5-5.0); Alkaline Phosphatase 102 U/L (38-126); Anion Gap 4 mmol/L; Blood Urea Nitrogen 26 mg/dL (9-20); Calcium 8.4 mg/dL (8.4-10.2); Carbon Dioxide 39 mmol/L (22-30); Chloride 99 mmol/L (98-107); Glucose 88 mg/dL (74-99); Non-African American GFR(CKD) 64 (>60 ml/min/1.73 sqM); Potassium 4.9 mmol/L (3.5-5.1); Sodium 142 mmol/L (137-145); Total Bilirubin 0.2 mg/dL (0.2-1.3); Total Protein 6.6 g/dL (6.3-8.2)
[2024-03-15 08:37] LABS: Eosinophils # (M) 0.18 k/uL (0-0.7); Lymphocytes # (M) 0.77 k/uL (1.0-4.8); Monocytes # (M) 0.24 k/uL (0-1.0); Neutrophils # (M) 4.72 k/uL (1.3-7.7); Neutrophils % (M) 80 %; Nucleated Red Blood Cells 0 /100 WBC (0-0); Total Cells Counted 100
[2024-03-15] MEDS ORDERED: BUMETANIDE 1 MG TAB PO SCH (09:00)
[2024-03-15] MEDS ORDERED: AZITHROMYCIN 500 MG TAB PO SCH (09:00)
[2024-03-15] MEDS: ATORVASTATIN 40 MG TAB PO SCH (09:24)
[2024-03-15] MEDS: METOPROLOL TARTRATE 25 MG TAB PO SCH (09:24)
[2024-03-15] MEDS: AMIODARONE 200 MG TAB PO SCH (09:24)
--- NOTE | 2024-03-15 10:43 | XR ---
EXAMINATION TYPE: XR chest 1V portable DATE OF EXAM: 03/15/2024 10:19 AM CLINICAL INDICATION:Male, 78 years old with history of CHF; PHH COMPARISON: Chest radiograph 03/14/2024 TECHNIQUE: XR chest 1V portable Frontal view of the chest. FINDINGS: Lungs/Pleura: Redemonstrated multifocal bilateral patchy airspace opacities with mild interval improv ement in aeration of the bilateral lungs. No pneumothorax. Pulmonary vascularity: Unremarkable. Heart/mediastinum: Cardiomediastinal silhouette is stable. Musculoskeletal: No acute osseous pathology. Other findings: None IMPRESSION: Redemonstrated multifocal bilateral patchy airspace disease with mild interval improvement in aeratio n. [facility], , 03/15/2024 10:41 AM
--- NOTE | 2024-03-15 11:16 | P.PN ---
Subjective Progress Note Date: 03/15/24 This is a 78-year-old male patient with a known history of atrial fibrillation anticoagulated with Eliquis, hypertension, hyperlipidemia, BPH and recent femur fracture. He was brought in here early this morning after having complaints of increasing shortness of breath. Upon arrival by EMS they found him to have an O2 saturation of 60% and initially had refused treatment. They were called back a couple hours later and the patient was brought into the emergency room about 6:00 this morning. Chest x-ray revealed bilateral pulmonary edema with small pleural effusions consistent with congestive heart failure. CT angiogram ruled out central pulmonary embolism. There is large bilateral pleural effusions with diffuse airspace disease possible pneumonia versus pulmonary edema. White count 6.0. Hemoglobin 10.3. Platelets 307. D-dimer 1.47. INR 1.0. Sodium 139. Potassium 4.5. Bicarb 33. BUN 28. Creatinine 0.90. Glucose 110. proBNP 2540. Viral screen was negative. Troponin negative x 1. Arterial blood gases on 100% FiO2 revealed a PaO2 of 171. pCO2 85. pH 7.22. He is placed on BiPAP currently 14/6 and 50% FiO2. He is afebrile. Bradycardic in the 50s. Blood pressure stable. Mean arterial pressure in the 70s. He is seen today in consultation in the emergency department. He is awake and alert. He is asking to go home. He is continued on BiPAP. He was initiated on ceftriaxone. Continued on Bumex. Anticoagulated with Eliquis. The patient is seen today March 15, 2024 in follow-up on the selective care unit. He is currently sitting up in bed. Awake and alert in no acute distress. His family is at the bedside. He is breathing a bit better today compared to yesterday. He did remain on BiPAP 14/6 and 50% FiO2. He is currently on oxygen at 7 L high flow nasal cannula. O2 saturations in the 90s. He has been afebrile. Hemodynamically stable. Chest x-ray continues to show multiple bilateral patchy airspace opacities with slight improvement today compared to yesterday. White count 5.9. Hemoglobin 10.4. Platelets 313. Sodium 142. Potassium 4.9. Bicarb 39. BUN 26. Creatinine 1.12. Procalcitonin was negative at 0.10. Legionella screen was negative. Viral screen was negative. He is anticoagulated with Eliquis. He remains on IV diuretics. No accurate intake and output recorded. Objective - Vital Signs Vital signs: Vital Signs Temp 97.2 F L 03/15/24 04:00 Pulse 64 03/15/24 04:00 Resp 22 03/15/24 04:00 BP 119/66 03/15/24 04:00 Pulse Ox 93 L 03/15/24 04:00 FiO2 50 03/15/24 05:48 Intake & Output 03/14/24 03/15/24 03/15/24 18:59 06:59 18:59 Intake Total 10 Balance 10 Weight 96 kg Intake: IV 10 Invasive Line 1 10 Other: Voiding Method External Catheter - Exam GENERAL EXAM: Alert, 78-year-old male, sitting up in bed having breakfast, on 7 L nasal cannula, in mild respiratory distress. HEAD: Normocephalic. EYES: Normal reaction of pupils, equal size. NOSE: Clear with pink turbinates. THROAT: No erythema or exudates. NECK: No masses, no JVD. CHEST: No chest wall deformity. LUNGS: Equal air entry with crackles in the bilateral bases, diminished. CVS: S1 and S2 normal with an audible murmur, regular rhythm. ABDOMEN: No hepatosplenomegaly, normal bowel sounds, no guarding or rigidity. SPINE: No scoliosis or deformity SKIN: No rashes CENTRAL NERVOUS SYSTEM: Residual left-sided weakness from previous CVA, tone is normal in all 4 extremities. EXTREMITIES: There is 2+ peripheral edema. Bruising over right knee. No clubbing, no cyanosis. Peripheral pulses are intact. - Labs CBC & Chem 7: 03/15/24 07:18 03/15/24 07:18 Labs: Abnormal Lab Results - Last 24 Hours (Table) 03/14/24 03/15/24 03/15/24 Range/Units 06:20 07:18 07:18 RBC 3.86 L (4.30-5.90) m/uL Hgb 10.4 L (13.0-17.5) gm/dL Hct 35.9 L (39.0-53.0) % MCHC 29.1 L (31.0-37.0) g/dL Lymphocytes # (Manual) 0.77 L (1.0-4.8) k/uL Carbon Dioxide 39 H (22-30) mmol/L BUN 26 H (9-20) mg/dL C-Reactive Protein 7.5 H (<1.0) mg/dL Albumin 3.3 L (3.5-5.0) g/dL Assessment and Plan Assessment: Acute hypoxemic and hypercapnic respiratory failure secondary to an acute exacerbation of diastolic congestive heart failure and valvular heart disease History of atrial fibrillation, anticoagulated with Eliquis Moderate aortic stenosis Recent admission here from December 15, 2023 through December 29, 2023 for acute kidney injury and other multiple medical issues Femur fracture requiring hospitalization and surgical repair November 27, 2023 and discharged to [facility] November 30, 2023 then discharged to home History of CVA with residual left-sided weakness Anemia of chronic disease Benign prostatic hyperplasia Hypertension Hyperlipidemia Former smoker Plan: The patient was seen and evaluated Chest x-ray, labs and medications reviewed Procalcitonin negative Antibiotics discontinued Continue Lasix 40 mg IV every 8 hours Echocardiogram pending Continue Eliquis Continue BiPAP support 14/6 and 35% FiO2 as needed Currently on 4 L high flow nasal cannula We will continue to follow I have personally seen and examined the patient, performed the documentation and the assessment and plan as written. Number of minutes spent on the visit: 10 Dictation was produced using [employer] dictation software. Please excuse any grammatical, word or spelling errors.
--- NOTE | 2024-03-15 13:27 | P.PN ---
Subjective Progress Note Date: 03/15/24 Chevy French is a 78-year-old male patient who presented with complaints of shortness of breath per patient and family symptoms started about a week ago but significantly increased this morning and EMS was called patient was found to be satting 60% on room air patient denies any recent illness or chest pain. Patient has a past medical history of femur fracture in January 2024 with repair chest x-ray was completed showing correlation for CHF with bilateral pulmonary edema small pleural effusions CTA of the chest performed showing limited assessment for pulmonary embolism due to motion artifact and suboptimal enhancement large bilateral pleural effusion with diffuse airspace disease correlation for diffuse pneumonia or pulmonary edema. ABGs performed showing pH of 7.22, pCO2 of 85, pO2 of 171 and sodium bicarb 35. Patient was started on BiPAP in ER patient also started on IV antibiotics. Influenza RSV and COVID-19 negative. At this time patient will be admitted pulmonary services consulted 03/15. Patient seen and examined. Patient very lethargic, hard to arouse, WBC this morning is 5.9, hemoglobin 8.4, platelet count 312, sodium 142, potassium 4.9, BUN 23, creatinine 1.12. REVIEW OF SYSTEMS: Review of system cannot be obtained as patient is very lethargic PHYSICAL EXAMINATION: GENERAL: The patient is lethargic HEENT: Pupils are round and equally reacting to light. EOMI. No scleral icterus. No conjunctival pallor. Normocephalic, atraumatic. No pharyngeal erythema. No thyromegaly. CARDIOVASCULAR: S1 and S2 present. No murmurs, rubs, or gallops. PULMONARY: Coarse breath sound bilaterally, no crackles audible ABDOMEN: Soft, nontender, nondistended, normoactive bowel sounds. No palpable organomegaly. MUSCULOSKELETAL: No joint swelling or deformity. EXTREMITIES: No cyanosis, clubbing, or pedal edema. NEUROLOGICAL: Gross neurological examination did not reveal any focal deficits. SKIN: No rashes. Assessment and plan Acute hypercapnic respiratory failure patient started on BiPAP Bacterial pneumonia Pulmonary edema Bilateral pleural effusion Acute combined systolic and diastolic CHF History of atrial fibrillation currently on Eliquis Hypertension hyperlipidemia History of left femur fracture with repair in January 2024 History of urinary retention follows with urology services outpatient Monitor vital signs Monitor CBC Monitor CMP Continue telemetry monitoring Continue oxygen supplementation Encourage use of BiPAP as needed Follow-up on blood culture Follow-up on sputum culture Strict I's and O's, daily weights, continue IV Lasix 40 mg every 8 Continue amiodarone, Eliquis metoprolol Continue IV Zosyn Echo pending Cardiology following Pulmonology following Labs and medication were reviewed.. Continue same treatment. Continue with symptomatic treatment. Resume home medication. Monitor labs and vitals. DVT and GI prophylaxis. Further recommendations as per clinical course of the patient Dictation was produced using [employer] dictation software. please excuse any grammatical, word or spelling errors. Objective - Vital Signs Vital signs: Vital Signs Temp 97.2 F L 03/15/24 04:00 Pulse 69 03/15/24 11:48 Resp 18 03/15/24 11:48 BP 138/69 03/15/24 11:48 Pulse Ox 94 L 03/15/24 11:48 FiO2 50 03/15/24 05:48 Intake & Output 03/14/24 03/15/24 03/15/24 18:59 06:59 18:59 Intake Total 10 250 Balance 10 250 Weight 96 kg Intake: IV 10 10 Invasive Line 1 10 10 Oral 240 Other: Voiding Method External Catheter External Catheter - Labs CBC & Chem 7: 03/15/24 07:18 03/15/24 07:18 Labs: Abnormal Lab Results - Last 24 Hours (Table) 03/14/24 03/15/24 03/15/24 Range/Units 06:20 07:18 07:18 RBC 3.86 L (4.30-5.90) m/uL Hgb 10.4 L (13.0-17.5) gm/dL Hct 35.9 L (39.0-53.0) % MCHC 29.1 L (31.0-37.0) g/dL Lymphocytes # (Manual) 0.77 L (1.0-4.8) k/uL Carbon Dioxide 39 H (22-30) mmol/L BUN 26 H (9-20) mg/dL C-Reactive Protein 7.5 H (<1.0) mg/dL Albumin 3.3 L (3.5-5.0) g/dL Microbiology - Last 24 Hours (Table) 03/14/24 07:37 Blood Culture - Preliminary Blood
[2024-03-15] MEDS: PIPERACILLIN-TAZOBACTAM 3.375 GM in SODIUM CHLORIDE 0.9% 100 ML IVPB SCH (15:17)
[2024-03-15 15:26] LABS: Glucose,Whole Blood 219 mg/dL (70-110)
[2024-03-15 15:47] LABS: Glucose,Whole Blood 134 mg/dL (70-110)
[2024-03-15] MEDS: NOREPINEPHRINE 4 MG in SODIUM CHLORIDE 0.9% 250 ML IV SCH (16:23)
[2024-03-15 16:27] LABS: ABG Oxygen Saturation 94.8 % (94-97); ABG PO2 84 mmHg (83-108); Allen Test Performed? Yes
[2024-03-15 16:29] LABS: ABG PCO2 >98 mmHg (35-45); ABG PH 7.05 (7.35-7.45)
--- NOTE | 2024-03-15 16:29 | XR ---
EXAMINATION TYPE: XR chest 1V portable DATE OF EXAM: 03/15/2024 4:23 PM COMPARISON: Previous chest radiograph dated 03/15/2024. CLINICAL INDICATION: Male, 78 years old with history of et tube placement and ogt placement; [facility] TECHNIQUE: XR chest 1V portable Frontal view of the chest. FINDINGS: Stable cardiac silhouette. Patchy bilateral airspace opacities, not significantly changed from most recent prior study. No pneumothorax. Likely small right pleural effusion and possible trace left effusion. No acute osseous abnormality. Endotracheal tube terminates 5 cm above the humaira. An enteric tube visualized coursing below left di aphragm distal sidehole and tip outside the [id number]. IMPRESSION: 1. Findings suggestive of multifocal pneumonia, not significantly changed from most recent prior pradeep dy. 2. Endotracheal tube terminates 5 cm above the humaira. 3. Enteric tube as above. [facility], , 03/15/2024 4:26 PM
[2024-03-15 16:52] LABS: ABG Base Excess 7.4 mmol/L; ABG HCO3 36 mmol/L (21-25); ABG Oxygen Saturation >100.0 % (94-97); ABG PH 7.27 (7.35-7.45); ABG PO2 325 mmHg (83-108); ABG TCO2 39 mmol/L (19-24); Allen Test Performed? Yes
[2024-03-15 16:55] LABS: ABG PCO2 80 mmHg (35-45)
[2024-03-15 17:01] LABS: Glucose,Whole Blood 116 mg/dL (70-110)
[2024-03-15 17:26] LABS: Basophils % (A) 0 %; Eosinophils % (A) 0 %; HCT 34.6 % (39.0-53.0); HGB 9.9 gm/dL (13.0-17.5); Hypochromasia Marked; Lymphocytes # (A) 0.4 k/uL (1.0-4.8); Lymphocytes % (A) 6 %; MCH 26.6 pg (25.0-35.0); MCHC 28.7 g/dL (31.0-37.0); MCV 92.9 fL (80.0-100.0); Mean Platelet Volume 7.3; Monocytes # (A) 0.4 k/uL (0-1.0); Monocytes % (A) 7 %; Neutrophils # (A) 5.4 k/uL (1.3-7.7); Neutrophils % (A) 86 %; Platelet Count 316 k/uL (150-450); RBC 3.73 m/uL (4.30-5.90); RDW 14.6 % (11.5-15.5); WBC 6.2 k/uL (3.8-10.6)
[2024-03-15 17:30] LABS: African American GFR (CKD) 59 (>60 ml/min/1.73 sqM); Anion Gap 6 mmol/L; Blood Urea Nitrogen 32 mg/dL (9-20); Calcium 8.3 mg/dL (8.4-10.2); Carbon Dioxide 35 mmol/L (22-30); Chloride 100 mmol/L (98-107); Glucose 115 mg/dL (74-99); Magnesium 2.5 mg/dL (1.6-2.3); Non-African American GFR(CKD) 51 (>60 ml/min/1.73 sqM); Sodium 141 mmol/L (137-145)
--- NOTE | 2024-03-15 19:43 | CONS ---
CONSULTATION HISTORY OF PRESENT ILLNESS: Chevy is a 78-year-old gentleman with history of prior CVA, recent hip fracture, status post surgery, valvular heart disease, prostatic hypertrophy, who is admitted to hospital with shortness of breath. In that, a chest x-ray showed bilateral patchy airspace disease suggestive of pneumonia and Cardiology has been consulted because the patient was found to be in acute pulmonary edema. The patient is currently on intravenous antibiotics. He has hypoxic hypercapnic respiratory failure and Slab Lifting Engineer is currently managing the same. CT scan of the chest was negative for pulmonary embolism. There are bilateral pleural effusions. The patient is a poor historian. Currently on IV Lasix. I got the information from his daughter and son who are at bedside. It is unclear as to why the patient is taking amiodarone. He is also on apixaban, which the patient probably has had atrial fibrillation. An EKG on this admission revealed sinus rhythm with first-degree AV block and right bundle branch block. PAST MEDICAL HISTORY: Significant for paroxysmal atrial fibrillation, hip fracture, dyslipidemia. MEDICATIONS: At home included, 1. Eliquis 5 b.i.d. 2. Amiodarone 200 daily. 3. Flomax. 4. Lopressor. 5. Bumex. 6. Lipitor. ALLERGIES: There are no known drug allergies. FAMILY HISTORY: I am unable to obtain from the patient because of language issues. I obtained whatever information I could from the patient's family. SOCIAL HISTORY: I am unable to obtain from the patient because of language issues. I obtained whatever information I could from the patient's family. REVIEW OF SYSTEMS: I am unable to obtain from the patient because of language issues. I obtained whatever information I could from the patient's family. PHYSICAL EXAMINATION: GENERAL: The patient is sleeping. VITAL SIGNS: Heart rate is 64 beats per minute, blood pressure is 120/66. He is on high-flow nasal cannula. CHEST: Reveals diminished air entry with occasional rhonchi. HEART: Reveals first and second heart sounds. An ejection systolic murmur in the aortic area. ABDOMEN: Soft. EXTREMITIES: Did not reveal any edema. LABORATORY DATA: Show that the blood gases show a pH of 7.2, pCO2 of 85, PO2 of 170. CBC shows a hemoglobin of 10.4, platelet count is 312, potassium is 3.9. ASSESSMENT: 1. Respiratory failure. 2. Acute onset pulmonary edema. 3. History of paroxysmal atrial fibrillation. 4. History of hip fracture. 5. History of valvular heart disease. PLAN: I am going to obtain a 2D echo. Continue the patient on IV Lasix and decide on further course of action based on his response for treatment of his hypercapnic respiratory failure, currently being managed by the Slab Lifting Engineer. LUISITO / PRICE: [phone] /
[2024-03-15] MEDS: CHLORHEXIDINE GLUCONATE 15 ML CUP MUCOUS MEM SCH (20:55)
--- NOTE | 2024-03-15 20:56 | P.CONS ---
History of Present Illness - Reason for Consult Consult date: 03/15/24 Bacterial pneumonia Requesting physician: Matt Meeks - Chief Complaint Shortness of breath x 2 days - History of Present Illness Patient is a 78-year-old male with a past medical history significant for hypertension hyperlipidemia BPH atrial fibrillation presenting to the hospital yesterday morning for evaluation of increasing shortness of breath apparently the patient symptoms started the day of presentation the hospital patient was noted to be hypoxic with O2 sat of 60% by the EMS patient on arrival to the ER was afebrile did have a chest x-ray bilateral pulmonary edema and effusion consistent with a CHF CT angiogram did not show any central PE there was large bilateral effusion with diffuse airspace disease concerning for pulm edema versus pneumonia patient remains to be afebrile did have mild bradycardia arrhythmia patient was on BiPAP and was found to be unresponsive for the patient be transferred to the ICU and has been intubated patient also became hypotensive requiring pressor support patient did have white count of 6.2 with some lymphopenia BUN and creatinine slightly elevated today though normal on admission patient did have a Pro-Junior's of 0.10, influenza RSV COVID and urine for Legionella antigen negative patient has been on empiric Zosyn infectious disease was consulted concerning for bilateral pneumonia most information has been obtained from the chart and nursing staff the patient is currently intubated on the right and a family member at the bedside Review of Systems Positive points has been mentioned in HPI complete review could not be obtained because patient intubated on the vent Past Medical History Past Medical History: No Reported History Additional Past Surgical History / Comment(s): femur 01/2024 Smoking Status: Former smoker Past Alcohol Use History: None Reported Past Drug Use History: None Reported Medications and Allergies Home Medications Medication Instructions Recorded Confirmed Type Amiodarone [Cordarone] 200 mg PO DAILY 03/14/24 03/14/24 History Apixaban [Eliquis] 5 mg PO BID 03/14/24 03/14/24 History Atorvastatin [Lipitor] 40 mg PO DAILY 03/14/24 03/14/24 History Bumetanide [Bumex] 1 mg PO DAILY 03/14/24 03/14/24 History Metoprolol Tartrate [Lopressor] 25 mg PO DAILY 03/14/24 03/14/24 History Tamsulosin [Flomax] 0.4 mg PO BID 03/14/24 03/14/24 History Allergies Allergy/AdvReac Type Severity Reaction Status Date / Time No Known Allergies Allergy Verified 03/14/24 09:31 Physical Exam Vitals: Vital Signs Temp Pulse Pulse Resp BP BP Pulse Ox 03/15/24 11:48 69 18 138/69 94 L 03/15/24 11:28 93 L 03/15/24 08:00 69 18 03/15/24 05:48 03/15/24 04:00 97.2 F L 64 22 119/66 93 L 03/15/24 02:00 69 23 03/15/24 01:15 97.5 F L 69 25 H 122/67 98 03/15/24 00:44 65 20 134/58 98 03/15/24 00:13 03/14/24 23:00 77 20 133/58 93 L 03/14/24 21:00 77 20 143/83 97 03/14/24 18:04 97.4 F L 66 20 119/82 92 L 03/14/24 16:19 64 18 119/78 95 03/14/24 15:32 94 L FiO2 03/15/24 11:48 03/15/24 11:28 03/15/24 08:00 03/15/24 05:48 50 03/15/24 04:00 50 03/15/24 02:00 03/15/24 01:15 50 03/15/24 00:44 03/15/24 00:13 50 03/14/24 23:00 03/14/24 21:00 03/14/24 18:04 03/14/24 16:19 03/14/24 15:32 Intake and Output 03/14/24 03/15/24 03/15/24 22:59 06:59 14:59 Intake Total 10 250 Balance 10 250 Intake: IV 10 10 Invasive Line 1 10 10 Oral 240 Other: Voiding Method External Catheter External Catheter Weight 96 kg GENERAL DESCRIPTION: Elderly male intubated on the vent HEENT: Shows Pallor , no scleral icterus. Oral mucous membrane is dry. NECK: Trachea central, no thyromegaly. LUNGS: Unlabored breathing. Coarse breath sounds bilaterally HEART: S1, S2, regular rate and rhythm. No loud murmur ABDOMEN: Soft, no tenderness , guarding or rigidity, no organomegaly EXTREMITIES: No edema of feet. SKIN: No rash, no masses palpable. NEUROLOGICAL: The patient is sedated on the vent Results CBC & Chem 7: 03/15/24 16:49 03/15/24 16:49 Labs: Abnormal Lab Results - Last 24 Hours (Table) 03/14/24 03/15/24 03/15/24 Range/Units 06:20 07:18 07:18 RBC 3.86 L (4.30-5.90) m/uL Hgb 10.4 L (13.0-17.5) gm/dL Hct 35.9 L (39.0-53.0) % MCHC 29.1 L (31.0-37.0) g/dL Lymphocytes # (Manual) 0.77 L (1.0-4.8) k/uL Carbon Dioxide 39 H (22-30) mmol/L BUN 26 H (9-20) mg/dL C-Reactive Protein 7.5 H (<1.0) mg/dL Albumin 3.3 L (3.5-5.0) g/dL Microbiology - Last 24 Hours (Table) 03/14/24 07:37 Blood Culture - Preliminary Blood Assessment and Plan (1) Pneumonia Current Visit: Yes Status: Acute Code(s): J18.9 - PNEUMONIA, UNSPECIFIED ORGANISM SNOMED Code(s): 553170899 Plan: 1patient presented to hospital with increasing shortness of breath which is likely multifactorial patient initial workup was suggestive of mostly bilateral pulmonary subtle congestion effusion in this patient who did have normal white count not febrile which is all suggestive of possible CHF exacerbation now with worsening of his respiratory status requiring intubation and admission to the ICU possible component of pneumonia less likely but not excluded 2-sputum culture has been requested 3-continue with empiric Zosyn while waiting for the workup to be completed We will follow on clinical condition and cultures to further adjust medication if needed Thank you for this consultation we will follow the patient along with you Dictation was produced using [employer] dictation software. please excuse any grammatical, word or spelling errors. Time with Patient: Greater than 30
[2024-03-15 23:37] LABS: Glucose,Whole Blood 80 mg/dL (70-110)
[2024-03-16 00:07] LABS: ALT 15 U/L (4-49); AST 32 U/L (17-59); African American GFR (CKD) 67 (>60 ml/min/1.73 sqM); Albumin 2.7 g/dL (3.5-5.0); Alkaline Phosphatase 89 U/L (38-126); Anion Gap 1 mmol/L; Blood Urea Nitrogen 31 mg/dL (9-20); Calcium 8.1 mg/dL (8.4-10.2); Carbon Dioxide 36 mmol/L (22-30); Chloride 102 mmol/L (98-107); Glucose 77 mg/dL (74-99); Magnesium 2.5 mg/dL (1.6-2.3); Non-African American GFR(CKD) 58 (>60 ml/min/1.73 sqM); Potassium 4.3 mmol/L (3.5-5.1); Sodium 139 mmol/L (137-145); Total Bilirubin 0.3 mg/dL (0.2-1.3); Total Protein 5.6 g/dL (6.3-8.2)
[2024-03-16 04:16] LABS: ABG HCO3 38 mmol/L (21-25); ABG Oxygen Saturation 97.3 % (94-97); ABG PCO2 51 mmHg (35-45); ABG PH 7.49 (7.35-7.45); ABG PO2 77 mmHg (83-108); ABG TCO2 40 mmol/L (19-24)
[2024-03-16 04:20] LABS: Glucose,Whole Blood 91 mg/dL (70-110)
[2024-03-16 04:21] LABS: Allen Test Performed? no
[2024-03-16 04:37] LABS: Basophils % (A) 0 %; Eosinophils # (A) 0.1 k/uL (0-0.7); Eosinophils % (A) 1 %; HCT 30.9 % (39.0-53.0); HGB 9.3 gm/dL (13.0-17.5); Hypochromasia Marked; Lymphocytes # (A) 0.5 k/uL (1.0-4.8); Lymphocytes % (A) 8 %; MCH 26.1 pg (25.0-35.0); Mean Platelet Volume 6.9; Monocytes # (A) 0.4 k/uL (0-1.0); Monocytes % (A) 6 %; Neutrophils # (A) 4.7 k/uL (1.3-7.7); Neutrophils % (A) 83 %; Platelet Count 366 k/uL (150-450); RBC 3.55 m/uL (4.30-5.90); WBC 5.7 k/uL (3.8-10.6)
[2024-03-16 04:46] LABS: ALT 15 U/L (4-49); AST 31 U/L (17-59); African American GFR (CKD) 63 (>60 ml/min/1.73 sqM); Albumin 2.8 g/dL (3.5-5.0); Alkaline Phosphatase 93 U/L (38-126); Anion Gap 0 mmol/L; Blood Urea Nitrogen 30 mg/dL (9-20); Calcium 8.2 mg/dL (8.4-10.2); Carbon Dioxide 39 mmol/L (22-30); Chloride 102 mmol/L (98-107); Glucose 89 mg/dL (74-99); Magnesium 2.6 mg/dL (1.6-2.3); Non-African American GFR(CKD) 54 (>60 ml/min/1.73 sqM); Potassium 3.9 mmol/L (3.5-5.1); Sodium 141 mmol/L (137-145); Total Bilirubin 0.3 mg/dL (0.2-1.3); Total Protein 5.9 g/dL (6.3-8.2)
[2024-03-16] MEDS ORDERED: Potassium Replacement Protocol 1 EACH MISC MISCELLANE PRN (05:44)
[2024-03-16 05:51] LABS: MCV 87.1 fL (80.0-100.0)
[2024-03-16] MEDS: POTASSIUM BICARBONATE/CIT AC 20 MEQ TABLET.EFF NG-TUBE SCH (06:15)
--- NOTE | 2024-03-16 07:38 | XR ---
EXAMINATION TYPE: XR chest 1V portable DATE OF EXAM: 03/16/2024 5:18 AM COMPARISON: 03/15/2024 CLINICAL INDICATION: Male, 78 years old with history of Tube placement, , FINDINGS: ET tube remains satisfactory. Similar slight left paramedian positioning of the NG tube is unchanged. Hyperinflation. Heart borderline to mildly enlarged. Patchy and confluent bilateral airspace opaciti es persist. Suggestion of trace pleural effusions also similar. IMPRESSION: COPD with superimposed patchy and confluent bilateral airspace disease and trace pleural effusions. O verall unchanged. [facility], , 03/16/2024 7:35 AM
[2024-03-16 09:57] LABS: ABG Base Excess 12.6 mmol/L; ABG HCO3 39 mmol/L (21-25); ABG Oxygen Saturation 95.6 % (94-97); ABG PCO2 60 mmHg (35-45); ABG PH 7.42 (7.35-7.45); ABG PO2 74 mmHg (83-108); ABG TCO2 41 mmol/L (19-24)
[2024-03-16 10:00] LABS: Allen Test Performed? no
--- NOTE | 2024-03-16 11:37 | P.PN ---
Subjective Progress Note Date: 03/16/24 Principal diagnosis: Acute hypoxic and hypercapnic respiratory failure secondary to acute congestive heart failure, underlying pneumonia is not entirely ruled out but felt to be le ss likely This is a 78-year-old male patient with a known history of atrial fibrillation anticoagulated with Eliquis, hypertension, hyperlipidemia, BPH and recent femur fracture. He was brought in here early this morning after having complaints of increasing shortness of breath. Upon arrival by EMS they found him to have an O2 saturation of 60% and initially had refused treatment. They were called back a couple hours later and the patient was brought into the emergency room about 6:00 this morning. Chest x-ray revealed bilateral pulmonary edema with small pleural effusions consistent with congestive heart failure. CT angiogram ruled out central pulmonary embolism. There is large bilateral pleural effusions with diffuse airspace disease possible pneumonia versus pulmonary edema. White count 6.0. Hemoglobin 10.3. Platelets 307. D-dimer 1.47. INR 1.0. Sodium 139. Potassium 4.5. Bicarb 33. BUN 28. Creatinine 0.90. Glucose 110. proBNP 2540. Viral screen was negative. Troponin negative x 1. Arterial blood gases on 100% FiO2 revealed a PaO2 of 171. pCO2 85. pH 7.22. He is placed on BiPAP currently 14/6 and 50% FiO2. He is afebrile. Bradycardic in the 50s. Blood pressure stable. Mean arterial pressure in the 70s. He is seen today in consultation in the emergency department. He is awake and alert. He is asking to go home. He is continued on BiPAP. He was initiated on ceftriaxone. Continued on Bumex. Anticoagulated with Eliquis. Seen today on 03/16/2024, remains in the ICU, remains intubated and mechanically ventilated. He is on assist-control rate of 16 tidal volume 500 FiO2 40% PEEP of 8 patient was on propofol at 30 mcg/kg/min also on norepinephrine at 0. 03 mcg/kg/min, remains empirically on Zosyn, still receiving Lasix every 8 hours 40 mg. Remains on Eliquis. Patient seems to have pinpoint pupils however after propofol was discontinued, patient woke up, and his pupils were noted to be normal. Hence no need for CT of the brain at this point. Patient seems to be appropriate after he was taken off propofol, hence I recommended a trial of pressure support and CPAP, patient was placed on pressure support of 10, CPAP, and FiO2 at 50%, this was done for about an hour, follow-up ABG on 40% FiO2 and pressure support showed a pO2 of 74 pCO2 60 pH of 7.42 and the patient was again appropriate, recommended extubation. He was placed on BiPAP 14/50% which will be titrated down to 40%. Patient had blood cultures negative so far, sputum cultures were sent today. WBC count is 5.7 hemoglobin 9.3, Basic metabolic profile is normal BUN is 30 creatinine 1.28 chest x-ray continues show bilateral airspace disease mostly involving upper lobes. Objective - Vital Signs Vital signs: Vital Signs Temp 98.1 F 03/16/24 08:00 Pulse 53 L 03/16/24 11:15 Resp 27 H 03/16/24 11:15 BP 104/59 03/16/24 11:00 Pulse Ox 96 03/16/24 11:15 FiO2 45 03/16/24 11:15 Intake & Output 03/15/24 03/16/24 03/16/24 18:59 06:59 18:59 Intake Total 378.838 982.090 248.563 Output Total 510 1380 505 Balance -131.162 -397.910 -256.437 Weight 96 kg Intake: IV 63 529 102 0.9 Sodium Chloride 40 260 80 Invasive Line 1 10 Invasive Line 3 10 30 10 Piperacillin-Tazobactam 3 200 .375 gm In Sodium Chloride 0.9% 100 ml @ 25 mls/hr IVPB Q8H [facility] Rx#: [id number] Pressure Bag (0.9 Sodium 3 39 12 Chloride) Intake, IV Titration 75.838 453.090 146.563 Amount Norepinephrine 4 mg In 72.238 258.290 52.611 Sodium Chloride 0.9% 250 ml @ 0.03 MCG/KG/MIN 10. 973 mls/hr IV .[id number] [facility] Rx#:[id number] propofoL 1,000 mg In 3.6 194.800 93.952 Empty Bag 1 bag @ 15 MCG/ KG/MIN 8.64 mls/hr IV . [id number] [facility] Rx#:[id number] Oral 240 Output: Urine 510 1380 505 Other: Voiding Method Indwelling Catheter Indwelling Catheter Indwelling Catheter ABP, PAP, CO, CI - Last Documented Arterial Blood Pressure 143/47 - Exam GENERAL EXAM: 78-year-old white male, intubated, mechanically ventilated, appropriate once propofol was discontinued. HEAD: Normocephalic. EYES: Normal reaction of pupils, equal size. NOSE: Clear with pink turbinates. THROAT: No erythema or exudates. NECK: No masses, no JVD. CHEST: No chest wall deformity. LUNGS: Crackles and rhonchi noted bilaterally CVS: S1 and S2 normal with an audible murmur, regular rhythm. ABDOMEN: No hepatosplenomegaly, normal bowel sounds, no guarding or rigidity. SKIN: No rashes CENTRAL NERVOUS SYSTEM: Patient is arousable, seems to be generally weak but follows simple instructions EXTREMITIES: 2+ bipedal edema no clubbing, no cyanosis. - Labs CBC & Chem 7: 03/16/24 04:24 03/16/24 04:24 Labs: Abnormal Lab Results - Last 24 Hours (Table) 03/15/24 03/15/24 03/15/24 Range/Units 15:24 15:31 15:46 RBC (4.30-5.90) m/uL Hgb (13.0-17.5) gm/dL Hct (39.0-53.0) % MCHC (31.0-37.0) g/dL Lymphocytes # (1.0-4.8) k/uL ABG pH 7.05 L* (7.35-7.45) ABG pCO2 >98 H* (35-45) mmHg ABG pO2 (83-108) mmHg ABG HCO3 (21-25) mmol/L ABG Total CO2 (19-24) mmol/L ABG O2 Saturation (94-97) % Hemoglobin 10.7 L (13.0-17.5) gm/dL Carbon Dioxide (22-30) mmol/L BUN (9-20) mg/dL Creatinine (0.66-1.25) mg/dL Glucose (74-99) mg/dL POC Glucose (mg/dL) 219 H 134 H (70-110) mg/dL Calcium (8.4-10.2) mg/dL Magnesium (1.6-2.3) mg/dL Total Protein (6.3-8.2) g/dL Albumin (3.5-5.0) g/dL 03/15/24 03/15/24 03/15/24 Range/Units 16:47 16:49 16:49 RBC 3.73 L (4.30-5.90) m/uL Hgb 9.9 L (13.0-17.5) gm/dL Hct 34.6 L (39.0-53.0) % MCHC 28.7 L (31.0-37.0) g/dL Lymphocytes # 0.4 L (1.0-4.8) k/uL ABG pH 7.27 L (7.35-7.45) ABG pCO2 80 H* (35-45) mmHg ABG pO2 325 H (83-108) mmHg ABG HCO3 36 H (21-25) mmol/L ABG Total CO2 39 H (19-24) mmol/L ABG O2 Saturation >100.0 H (94-97) % Hemoglobin 9.7 L (13.0-17.5) gm/dL Carbon Dioxide 35 H (22-30) mmol/L BUN 32 H (9-20) mg/dL Creatinine 1.35 H (0.66-1.25) mg/dL Glucose 115 H (74-99) mg/dL POC Glucose (mg/dL) (70-110) mg/dL Calcium 8.3 L (8.4-10.2) mg/dL Magnesium 2.5 H (1.6-2.3) mg/dL Total Protein (6.3-8.2) g/dL Albumin (3.5-5.0) g/dL 03/15/24 03/15/24 03/16/24 Range/Units 16:50 23:35 04:15 RBC (4.30-5.90) m/uL Hgb (13.0-17.5) gm/dL Hct (39.0-53.0) % MCHC (31.0-37.0) g/dL Lymphocytes # (1.0-4.8) k/uL ABG pH 7.49 H (7.35-7.45) ABG pCO2 51 H (35-45) mmHg ABG pO2 77 L (83-108) mmHg ABG HCO3 38 H (21-25) mmol/L ABG Total CO2 40 H (19-24) mmol/L ABG O2 Saturation 97.3 H (94-97) % Hemoglobin 9.5 L (13.0-17.5) gm/dL Carbon Dioxide 36 H (22-30) mmol/L BUN 31 H (9-20) mg/dL Creatinine (0.66-1.25) mg/dL Glucose (74-99) mg/dL POC Glucose (mg/dL) 116 H (70-110) mg/dL Calcium 8.1 L (8.4-10.2) mg/dL Magnesium 2.5 H (1.6-2.3) mg/dL Total Protein 5.6 L (6.3-8.2) g/dL Albumin 2.7 L (3.5-5.0) g/dL 03/16/24 03/16/24 03/16/24 Range/Units 04:24 04:24 09:55 RBC 3.55 L (4.30-5.90) m/uL Hgb 9.3 L (13.0-17.5) gm/dL Hct 30.9 L (39.0-53.0) % MCHC 30.0 L (31.0-37.0) g/dL Lymphocytes # 0.5 L (1.0-4.8) k/uL ABG pH (7.35-7.45) ABG pCO2 60 H (35-45) mmHg ABG pO2 74 L (83-108) mmHg ABG HCO3 39 H (21-25) mmol/L ABG Total CO2 41 H (19-24) mmol/L ABG O2 Saturation (94-97) % Hemoglobin 9.4 L (13.0-17.5) gm/dL Carbon Dioxide 39 H (22-30) mmol/L BUN 30 H (9-20) mg/dL Creatinine 1.28 H (0.66-1.25) mg/dL Glucose (74-99) mg/dL POC Glucose (mg/dL) (70-110) mg/dL Calcium 8.2 L (8.4-10.2) mg/dL Magnesium 2.6 H (1.6-2.3) mg/dL Total Protein 5.9 L (6.3-8.2) g/dL Albumin 2.8 L (3.5-5.0) g/dL Microbiology - Last 24 Hours (Table) 03/14/24 07:37 Blood Culture - Preliminary Blood Assessment and Plan Assessment: Impression: Acute hypoxemic and hypercapnic respiratory failure secondary to an acute exacerbation of suspected systolic versus diastolic congestive heart failure and valvular heart disease, requiring intubation on 03/15/2024, extubated on 02/20. History of atrial fibrillation, anticoagulated with Eliquis Recent femur fracture requiring hospitalization and subsequent placement at [facility] then discharged to home Benign prostatic hyperplasia Hypertension Hyperlipidemia history of aortic valve stenosis Plan: Continue to monitor the patient in the ICU Will try to give the patient a trial of weaning with pressure support and CPAP, and if tolerated may extubate Continue diuretics Continue antibiotics GI and DVT prophylaxis Daily monitoring of labs and renal profile, check cultures including blood and sputum Procalcitonin level was normal however will continue antibiotics empirically for now. Remains on Zosyn sputum cultures are pending blood cultures are pending Obtain an echocardiogram Continue Eliquis Continue BiPAP and tolerate FiO2 as tolerated Patient is critically ill Critical care time is over 30 minutes Time with Patient: Greater than 30
[2024-03-16 12:29] LABS: Glucose,Whole Blood 89 mg/dL (70-110)
--- NOTE | 2024-03-16 13:14 | CA ---
Transthoracic Echo Report Name: Chevy French Age: 78 Gender: M : 1945 Exam Date: 03/16/2024 11:08 Exam Location: [facility] Ht (in): 71 Wt (lb): 211 Ordering Physician: Bryon Trejo MD ([id number]) Attending/Referring Phys: Maya WELLS [employer] Renetta Mercado RDCS Procedure CPT: Indications: Cardiac Hx: Technical Quality: Technically difficult study Contrast 1: Definity Total Dose (mL): 1 Contrast 2: Total Dose (mL): MEASUREMENTS (Male / Female) Normal Values 2D ECHO LV Diastolic Diameter PLAX 4.6 cm 4.2 - 5.9 / 3.9 - 5.3 cm LV Systolic Diameter PLAX 3.1 cm IVS Diastolic Thickness 1.1 cm 0.6 - 1.0 / 0.6 - 0.9 cm LVPW Diastolic Thickness 1.2 cm 0.6 - 1.0 / 0.6 - 0.9 cm LV Relative Wall Thickness 0.5 LVOT Diameter 1.8 cm LV Diastolic Volume MOD BP 164.7 cm??? 67 - 155 / 56 - 104 cm??? LV Systolic Volume MOD BP 50.7 cm??? 22 - 58 / 19 - 49 cm??? LV Ejection Fraction MOD BP 69.2 % >= 55 % LV Cardiac Index MOD BP 3093.5 cm???/min???m??? LV Diastolic Volume MOD 4C 156.4 cm??? LV Systolic Volume MOD 4C 52.5 cm??? LV Ejection Fraction MOD 4C 66.5 % LV Cardiac Index MOD 4C 2820.5 cm???/min???m??? LV Diastolic Length 4C 9.6 cm LV Systolic Length 4C 7.7 cm LV Diastolic Volume MOD 2C 168.9 cm??? LV Systolic Volume MOD 2C 45.9 cm??? LV Ejection Fraction MOD 2C 72.8 % LV Cardiac Index MOD 2C 3336.8 cm???/min???m??? LV Diastolic Length 2C 9.9 cm LV Systolic Length 2C 7.2 cm LA Volume 132.6 cm??? 18 - 58 / 22 - 52 cm??? LA Volume Index 60.0 cm???/m??? 16 - 28 cm???/m??? DOPPLER AV Peak Velocity 309.5 cm/s AV Peak Gradient 38.3 mmHg AV Mean Velocity 206.5 cm/s AV Mean Gradient 19.5 mmHg AV Velocity Time Integral 77.3 cm LVOT Peak Velocity 106.0 cm/s LVOT Peak Gradient 4.5 mmHg LVOT Velocity Time Integral 24.7 cm LVOT Stroke Volume 65.2 cm??? LVOT Stroke Volume Index 30.2 ml/m??? LVOT Cardiac Index 1769.4 cm???/min???m??? AV Area Cont Eq vti 0.8 cm??? AV Area Cont Eq pk 0.9 cm??? MV Area PHT 3.0 cm??? Mitral E Point Velocity 102.5 cm/s Mitral A Point Velocity 101.2 cm/s Mitral E to A Ratio 1.0 MV Deceleration Time 254.8 ms TR Peak Velocity 251.8 cm/s TR Peak Gradient 25.4 mmHg Right Atrial Pressure 20.0 mmHg Pulmonary Artery Systolic Pressu 45.4 mmHg Right Ventricular Systolic Press 45.4 mmHg FINDINGS Left Ventricle Left ventricular ejection fraction is estimated at 60-65 %. Mildly increased septal wall thickness. Mildly increased left ventricular diastolic volume. No obvious regional wall motion abnormalities. Right Ventricle Right ventricle not well visualized. Mild to moderate pulmonary hypertension. Right Atrium Right atrium not well visualized. Left Atrium Severely increased left atrial volume. Moderately increased left atrial area. Mitral Valve Structurally normal mitral valve. No evidence for mitral valve prolapse. No mitral stenosis. Trace mitral regurgitation. Aortic Valve Aortic valve not well visualized. No aortic regurgitation. Moderate to severe underestimate due to poor doppler alightnment. Tricuspid Valve Structurally normal tricuspid valve. No tricuspid stenosis. Mild tricuspid regurgitation. Pulmonic Valve Pulmonic valve not well visualized. Pericardium No pericardial effusion. Aorta Aortic annulus normal. CONCLUSIONS Left ventricular ejection fraction is estimated at 60-65 %. No obvious regional wall motion abnormalities. Mildly increased septal wall thickness. Mild to moderate pulmonary hypertension. RVSP 45 mmHg Moderate calcific aortic stenosis. VTI ratio 0.3 Previewed by: Dr Luis Frederick (Electronically Signed) Final Date: 16 March 2024 13:13
--- NOTE | 2024-03-16 13:14 | P.PN ---
Subjective Progress Note Date: 03/16/24 HPI: 78-year-old prior history of CVA, recently fracture, s/p surgery, valvular heart disease, admitted with increased shortness of breath. His chest x-ray showed bilateral pulm congestion. Cardiology was consulted for acute CHF exacerbation management. CT chest angiogram was negative for PE. He does have bilateral pleural effusion. SUBJECTIVE: BP 129/40, heart rate 54, sinus rhythm on telemetry, appears clinically improved, on BiPAP support, 1+ pitting edema lower extremity. He is off norepinephrine ABG today shows pH 7.4, pCO2 60, pO2 74, BUN 30, creatinine 1.28, Hb 9.3 PHYSICAL EXAMINATION Vital signs reviewed. Head: Normocephalic. Eyes: Sclerae nonicteric. Neck: Brisk carotid upstroke, no jugular venous distention. Lungs: Clear to auscultation. Heart: Regular rate and rhythm, S1-S2, mild systolic murmur audible Abdomen: Soft nontender, bowel sounds present, Extremities: 1+ pitting edema bilateral lower extremity Neuro: Alert,. Detailed neuro exam was not performed. ASSESSMENT Acute hypoxic hypercapnic respiratory failure Acute CHFpEF exacerbation Paroxysmal atrial fibrillation, currently sinus rhythm Moderate aortic stenosis Multifocal pneumonia Bilateral moderate pleural effusion Obesity with concerns of ELLIE Cardiac testing Echocardiogram EF 60%, moderate aortic stenosis, No obvious regional wall motion abnormality, mild LVH, moderate pulmonary hypertension RVSP 45 mmHg PLAN Continue Eliquis 5 mg twice daily, Lipitor 40 mg daily, Lasix 40 mg IV 3 times daily. Will continue. Will add Aldactone 12.5 mg daily Discontinue amiodarone. Not on beta-pa at this time, however I will add 12.5 mg of metoprolol succinate. He does have tendency of going bradycardic in the nighttime. Will continue to monitor his telemetry. Tomorrow I would recommend reducing his Lasix to twice a day. Prior to discharge he should be on a SGLT2. Luis Frederick MD, FACC, RPVI Thank you for allowing [facility] to participate in this patient's care. Please contact us in case of any followup questions. Objective - Vital Signs Vital signs: Vital Signs Temp 98.1 F 03/16/24 08:00 Pulse 54 L 03/16/24 13:00 Resp 27 H 12/26/24 13:00 BP 104/59 03/16/24 12:00 Pulse Ox 95 03/16/24 13:00 FiO2 35 03/16/24 13:00 Intake & Output 03/15/24 03/16/24 03/16/24 18:59 06:59 18:59 Intake Total 378.838 982.090 304.563 Output Total 510 1380 955 Balance -131.162 -397.910 -650.437 Weight 96 kg Intake: IV 63 529 158 0.9 Sodium Chloride 40 260 120 Invasive Line 1 10 Invasive Line 3 10 30 20 Piperacillin-Tazobactam 3 200 .375 gm In Sodium Chloride 0.9% 100 ml @ 25 mls/hr IVPB Q8H [facility] Rx#: [id number] Pressure Bag (0.9 Sodium 3 39 18 Chloride) Intake, IV Titration 75.838 453.090 146.563 Amount Norepinephrine 4 mg In 72.238 258.290 52.611 Sodium Chloride 0.9% 250 ml @ 0.03 MCG/KG/MIN 10. 973 mls/hr IV .[id number] [facility] Rx#:[id number] propofoL 1,000 mg In 3.6 194.800 93.952 Empty Bag 1 bag @ 15 MCG/ KG/MIN 8.64 mls/hr IV . [id number] [facility] Rx#:[id number] Oral 240 Output: Urine 510 1380 955 Other: Voiding Method Indwelling Catheter Indwelling Catheter Indwelling Catheter ABP, PAP, CO, CI - Last Documented Arterial Blood Pressure 127/40 - Labs CBC & Chem 7: 03/16/24 04:24 03/16/24 04:24 Labs: Abnormal Lab Results - Last 24 Hours (Table) 03/15/24 03/15/24 03/15/24 Range/Units 15:24 15:31 15:46 RBC (4.30-5.90) m/uL Hgb (13.0-17.5) gm/dL Hct (39.0-53.0) % MCHC (31.0-37.0) g/dL Lymphocytes # (1.0-4.8) k/uL ABG pH 7.05 L* (7.35-7.45) ABG pCO2 >98 H* (35-45) mmHg ABG pO2 (83-108) mmHg ABG HCO3 (21-25) mmol/L ABG Total CO2 (19-24) mmol/L ABG O2 Saturation (94-97) % Hemoglobin 10.7 L (13.0-17.5) gm/dL Carbon Dioxide (22-30) mmol/L BUN (9-20) mg/dL Creatinine (0.66-1.25) mg/dL Glucose (74-99) mg/dL POC Glucose (mg/dL) 219 H 134 H (70-110) mg/dL Calcium (8.4-10.2) mg/dL Magnesium (1.6-2.3) mg/dL Total Protein (6.3-8.2) g/dL Albumin (3.5-5.0) g/dL 03/15/24 03/15/24 03/15/24 Range/Units 16:47 16:49 16:49 RBC 3.73 L (4.30-5.90) m/uL Hgb 9.9 L (13.0-17.5) gm/dL Hct 34.6 L (39.0-53.0) % MCHC 28.7 L (31.0-37.0) g/dL Lymphocytes # 0.4 L (1.0-4.8) k/uL ABG pH 7.27 L (7.35-7.45) ABG pCO2 80 H* (35-45) mmHg ABG pO2 325 H (83-108) mmHg ABG HCO3 36 H (21-25) mmol/L ABG Total CO2 39 H (19-24) mmol/L ABG O2 Saturation >100.0 H (94-97) % Hemoglobin 9.7 L (13.0-17.5) gm/dL Carbon Dioxide 35 H (22-30) mmol/L BUN 32 H (9-20) mg/dL Creatinine 1.35 H (0.66-1.25) mg/dL Glucose 115 H (74-99) mg/dL POC Glucose (mg/dL) (70-110) mg/dL Calcium 8.3 L (8.4-10.2) mg/dL Magnesium 2.5 H (1.6-2.3) mg/dL Total Protein (6.3-8.2) g/dL Albumin (3.5-5.0) g/dL 03/15/24 03/15/24 03/16/24 Range/Units 16:50 23:35 04:15 RBC (4.30-5.90) m/uL Hgb (13.0-17.5) gm/dL Hct (39.0-53.0) % MCHC (31.0-37.0) g/dL Lymphocytes # (1.0-4.8) k/uL ABG pH 7.49 H (7.35-7.45) ABG pCO2 51 H (35-45) mmHg ABG pO2 77 L (83-108) mmHg ABG HCO3 38 H (21-25) mmol/L ABG Total CO2 40 H (19-24) mmol/L ABG O2 Saturation 97.3 H (94-97) % Hemoglobin 9.5 L (13.0-17.5) gm/dL Carbon Dioxide 36 H (22-30) mmol/L BUN 31 H (9-20) mg/dL Creatinine (0.66-1.25) mg/dL Glucose (74-99) mg/dL POC Glucose (mg/dL) 116 H (70-110) mg/dL Calcium 8.1 L (8.4-10.2) mg/dL Magnesium 2.5 H (1.6-2.3) mg/dL Total Protein 5.6 L (6.3-8.2) g/dL Albumin 2.7 L (3.5-5.0) g/dL 03/16/24 03/16/24 03/16/24 Range/Units 04:24 04:24 09:55 RBC 3.55 L (4.30-5.90) m/uL Hgb 9.3 L (13.0-17.5) gm/dL Hct 30.9 L (39.0-53.0) % MCHC 30.0 L (31.0-37.0) g/dL Lymphocytes # 0.5 L (1.0-4.8) k/uL ABG pH (7.35-7.45) ABG pCO2 60 H (35-45) mmHg ABG pO2 74 L (83-108) mmHg ABG HCO3 39 H (21-25) mmol/L ABG Total CO2 41 H (19-24) mmol/L ABG O2 Saturation (94-97) % Hemoglobin 9.4 L (13.0-17.5) gm/dL Carbon Dioxide 39 H (22-30) mmol/L BUN 30 H (9-20) mg/dL Creatinine 1.28 H (0.66-1.25) mg/dL Glucose (74-99) mg/dL POC Glucose (mg/dL) (70-110) mg/dL Calcium 8.2 L (8.4-10.2) mg/dL Magnesium 2.6 H (1.6-2.3) mg/dL Total Protein 5.9 L (6.3-8.2) g/dL Albumin 2.8 L (3.5-5.0) g/dL Microbiology - Last 24 Hours (Table) 03/14/24 07:37 Blood Culture - Preliminary Blood
--- NOTE | 2024-03-16 14:43 | P.PN ---
Subjective Progress Note Date: 03/16/24 Principal diagnosis: Reason for follow-up is pneumonia Patient is a 78-year-old male with a past medical history significant for hypertension hyperlipidemia BPH atrial fibrillation presenting to the hospital for evaluation of increasing shortness of breath with initial concern for possible CHF did have worsening of his respiratory status also become unresponsive requiring intubation and transferred to ICU ID consulted for possible pneumonia. On today's evaluation that is 03/16/2024,the patient did spike a temperature of 101.2 F at midnight, patient is afebrile since then patient has been extubated this morning and is currently on a BiPAP remains to be lethargic and provide any history no vomiting or diarrhea reported by the nursing staff. Patient white count is 5.7 creatinine is 1.28 sputum cultures currently pending Objective - Vital Signs Vital signs: Vital Signs Temp 98.1 F 03/16/24 08:00 Pulse 54 L 03/16/24 13:00 Resp 27 H 03/16/24 13:00 BP 104/59 03/16/24 12:00 Pulse Ox 95 03/16/24 13:00 FiO2 35 03/16/24 13:00 Intake & Output 03/15/24 03/16/24 03/16/24 18:59 06:59 18:59 Intake Total 378.838 982.090 304.563 Output Total 510 1380 955 Balance -131.162 -397.910 -650.437 Weight 96 kg Intake: IV 63 529 158 0.9 Sodium Chloride 40 260 120 Invasive Line 1 10 Invasive Line 3 10 30 20 Piperacillin-Tazobactam 3 200 .375 gm In Sodium Chloride 0.9% 100 ml @ 25 mls/hr IVPB Q8H [facility] Rx#: [id number] Pressure Bag (0.9 Sodium 3 39 18 Chloride) Intake, IV Titration 75.838 453.090 146.563 Amount Norepinephrine 4 mg In 72.238 258.290 52.611 Sodium Chloride 0.9% 250 ml @ 0.03 MCG/KG/MIN 10. 973 mls/hr IV .[id number] [facility] Rx#:[id number] propofoL 1,000 mg In 3.6 194.800 93.952 Empty Bag 1 bag @ 15 MCG/ KG/MIN 8.64 mls/hr IV . [id number] [facility] Rx#:[id number] Oral 240 Output: Urine 510 1380 955 Other: Voiding Method Indwelling Catheter Indwelling Catheter Indwelling Catheter ABP, PAP, CO, CI - Last Documented Arterial Blood Pressure 127/40 - Exam GENERAL DESCRIPTION: An elderly male lying in bed in no distress RESPIRATORY SYSTEM: Unlabored breathing , coarse breath sounds bilaterally HEART: S1 S2 regular rate and rhythm , ABDOMEN: Soft , no tenderness EXTREMITIES: No edema feet - Labs CBC & Chem 7: 03/16/24 04:24 03/16/24 04:24 Labs: Abnormal Lab Results - Last 24 Hours (Table) 03/15/24 03/15/24 03/15/24 Range/Units 15:24 15:31 15:46 RBC (4.30-5.90) m/uL Hgb (13.0-17.5) gm/dL Hct (39.0-53.0) % MCHC (31.0-37.0) g/dL Lymphocytes # (1.0-4.8) k/uL ABG pH 7.05 L* (7.35-7.45) ABG pCO2 >98 H* (35-45) mmHg ABG pO2 (83-108) mmHg ABG HCO3 (21-25) mmol/L ABG Total CO2 (19-24) mmol/L ABG O2 Saturation (94-97) % Hemoglobin 10.7 L (13.0-17.5) gm/dL Carbon Dioxide (22-30) mmol/L BUN (9-20) mg/dL Creatinine (0.66-1.25) mg/dL Glucose (74-99) mg/dL POC Glucose (mg/dL) 219 H 134 H (70-110) mg/dL Calcium (8.4-10.2) mg/dL Magnesium (1.6-2.3) mg/dL Total Protein (6.3-8.2) g/dL Albumin (3.5-5.0) g/dL 03/15/24 03/15/24 03/15/24 Range/Units 16:47 16:49 16:49 RBC 3.73 L (4.30-5.90) m/uL Hgb 9.9 L (13.0-17.5) gm/dL Hct 34.6 L (39.0-53.0) % MCHC 28.7 L (31.0-37.0) g/dL Lymphocytes # 0.4 L (1.0-4.8) k/uL ABG pH 7.27 L (7.35-7.45) ABG pCO2 80 H* (35-45) mmHg ABG pO2 325 H (83-108) mmHg ABG HCO3 36 H (21-25) mmol/L ABG Total CO2 39 H (19-24) mmol/L ABG O2 Saturation >100.0 H (94-97) % Hemoglobin 9.7 L (13.0-17.5) gm/dL Carbon Dioxide 35 H (22-30) mmol/L BUN 32 H (9-20) mg/dL Creatinine 1.35 H (0.66-1.25) mg/dL Glucose 115 H (74-99) mg/dL POC Glucose (mg/dL) (70-110) mg/dL Calcium 8.3 L (8.4-10.2) mg/dL Magnesium 2.5 H (1.6-2.3) mg/dL Total Protein (6.3-8.2) g/dL Albumin (3.5-5.0) g/dL 03/15/24 03/15/24 03/16/24 Range/Units 16:50 23:35 04:15 RBC (4.30-5.90) m/uL Hgb (13.0-17.5) gm/dL Hct (39.0-53.0) % MCHC (31.0-37.0) g/dL Lymphocytes # (1.0-4.8) k/uL ABG pH 7.49 H (7.35-7.45) ABG pCO2 51 H (35-45) mmHg ABG pO2 77 L (83-108) mmHg ABG HCO3 38 H (21-25) mmol/L ABG Total CO2 40 H (19-24) mmol/L ABG O2 Saturation 97.3 H (94-97) % Hemoglobin 9.5 L (13.0-17.5) gm/dL Carbon Dioxide 36 H (22-30) mmol/L BUN 31 H (9-20) mg/dL Creatinine (0.66-1.25) mg/dL Glucose (74-99) mg/dL POC Glucose (mg/dL) 116 H (70-110) mg/dL Calcium 8.1 L (8.4-10.2) mg/dL Magnesium 2.5 H (1.6-2.3) mg/dL Total Protein 5.6 L (6.3-8.2) g/dL Albumin 2.7 L (3.5-5.0) g/dL 03/16/24 03/16/24 03/16/24 Range/Units 04:24 04:24 09:55 RBC 3.55 L (4.30-5.90) m/uL Hgb 9.3 L (13.0-17.5) gm/dL Hct 30.9 L (39.0-53.0) % MCHC 30.0 L (31.0-37.0) g/dL Lymphocytes # 0.5 L (1.0-4.8) k/uL ABG pH (7.35-7.45) ABG pCO2 60 H (35-45) mmHg ABG pO2 74 L (83-108) mmHg ABG HCO3 39 H (21-25) mmol/L ABG Total CO2 41 H (19-24) mmol/L ABG O2 Saturation (94-97) % Hemoglobin 9.4 L (13.0-17.5) gm/dL Carbon Dioxide 39 H (22-30) mmol/L BUN 30 H (9-20) mg/dL Creatinine 1.28 H (0.66-1.25) mg/dL Glucose (74-99) mg/dL POC Glucose (mg/dL) (70-110) mg/dL Calcium 8.2 L (8.4-10.2) mg/dL Magnesium 2.6 H (1.6-2.3) mg/dL Total Protein 5.9 L (6.3-8.2) g/dL Albumin 2.8 L (3.5-5.0) g/dL Microbiology - Last 24 Hours (Table) 03/15/24 15:57 Gram Stain - Preliminary Sputum 03/14/24 07:37 Blood Culture - Preliminary Blood Assessment and Plan (1) Pneumonia Current Visit: Yes Status: Acute Code(s): J18.9 - PNEUMONIA, UNSPECIFIED ORGANISM SNOMED Code(s): 563842896 Plan: 1patient presented to hospital with increasing shortness of breath which is likely multifactorial patient initial workup was suggestive of mostly bilateral pulmonary subtle congestion effusion in this patient who did have normal white c ount not febrile which is all suggestive of possible CHF exacerbation now with worsening of his respiratory status requiring intubation and admission to the ICU possible component of pneumonia 2-patient did spike a temperature and also have worsening of his respiratory status underlying aspiration/gram-negative pneumonia not excluded 3-sputum cultures currently pending we will treat with Zosyn while waiting for the workup to complete Dictation was produced using edjing dictation software. please excuse any grammatical, word or spelling errors. Time with Patient: Less than 30
--- NOTE | 2024-03-16 14:50 | P.PN ---
Subjective Progress Note Date: 03/16/24 Chevy French is a 78-year-old male patient who presented with complaints of shortness of breath per patient and family symptoms started about a week ago but significantly increased this morning and EMS was called patient was found to be satting 60% on room air patient denies any recent illness or chest pain. Patient has a past medical history of femur fracture in January 2024 with repair chest x-ray was completed showing correlation for CHF with bilateral pulmonary edema small pleural effusions CTA of the chest performed showing limited assessment for pulmonary embolism due to motion artifact and suboptimal enhancement large bilateral pleural effusion with diffuse airspace disease correlation for diffuse pneumonia or pulmonary edema. ABGs performed showing pH of 7.22, pCO2 of 85, pO2 of 171 and sodium bicarb 35. Patient was started on BiPAP in ER patient also started on IV antibiotics. Influenza RSV and COVID-19 negative. At this time patient will be admitted pulmonary services consulted 03/15. Patient seen and examined. Patient very lethargic, hard to arouse, WBC this morning is 5.9, hemoglobin 8.4, platelet count 312, sodium 142, potassium 4.9, BUN 23, creatinine 1.12. 03/10. Patient seen and examined. Patient was A teamed afternoon and had to be intubated. Blood work done showed WBC 5.7, hemoglobin 9.3, platelet count 366, sodium 141, potassium 3.9, BUN 30, creatinine 1.28,. Patient doing much better this morning, patient was extubated, currently on BiPAP REVIEW OF SYSTEMS: Review of system cannot be obtained as patient is on BiPAP PHYSICAL EXAMINATION: GENERAL: The patient is alert HEENT: Pupils are round and equally reacting to light. CARDIOVASCULAR: S1 and S2 present. No murmurs, rubs, or gallops. PULMONARY: Coarse breath sound bilaterally, no crackles audible ABDOMEN: Soft, nontender, nondistended, normoactive bowel sounds. No palpable organomegaly. MUSCULOSKELETAL: No joint swelling or deformity. EXTREMITIES: No cyanosis, clubbing, or pedal edema. NEUROLOGICAL: Alert SKIN: No rashes. Assessment and plan Acute hypercapnic respiratory failure requiring mechanical ventilation, currently extubated and on BiPAP Bacterial pneumonia Pulmonary edema Bilateral pleural effusion Acute combined systolic and diastolic CHF History of atrial fibrillation currently on Eliquis Hypertension hyperlipidemia History of left femur fracture with repair in January 2024 History of urinary retention follows with urology services outpatient Monitor vital signs Monitor CBC Monitor CMP Continue telemetry monitoring Continue oxygen supplementation CEncourage use of BiPAP as needed Follow-up on blood culture Follow-up on sputum culture Strict I's and O's, daily weights, continue IV Lasix 40 mg every 8 Continue amiodarone, Eliquis metoprolol Continue IV Zosyn Echo pending Cardiology following Pulmonology following Labs and medication were reviewed.. Continue same treatment. Continue with symptomatic treatment. Resume home medication. Monitor labs and vitals. DVT and GI prophylaxis. Further recommendations as per clinical course of the patie nt Dictation was produced using [employer] dictation software. please excuse any grammatical, word or spelling errors. Objective - Vital Signs Vital signs: Vital Signs Temp 99.0 F 03/16/24 04:00 Pulse 46 L 03/16/24 07:00 Resp 16 03/16/24 07:00 BP 104/49 03/16/24 07:00 Pulse Ox 98 03/16/24 07:00 FiO2 40 03/16/24 08:47 Intake & Output 03/15/24 03/16/24 03/16/24 18:59 06:59 18:59 Intake Total 378.838 982.090 146.258 Output Total 510 1380 Balance -131.162 -397.910 146.258 Weight 96 kg Intake: IV 63 529 0.9 Sodium Chloride 40 260 Invasive Line 1 10 Invasive Line 3 10 30 Piperacillin-Tazobactam 3 200 .375 gm In Sodium Chloride 0.9% 100 ml @ 25 mls/hr IVPB Q8H [facility] Rx#: [id number] Pressure Bag (0.9 Sodium 3 39 Chloride) Intake, IV Titration 75.838 453.090 146.258 Amount Norepinephrine 4 mg In 72.238 258.290 52.306 Sodium Chloride 0.9% 250 ml @ 0.03 MCG/KG/MIN 10. 973 mls/hr IV .[id number] [facility] Rx#:[id number] propofoL 1,000 mg In 3.6 194.800 93.952 Empty Bag 1 bag @ 15 MCG/ KG/MIN 8.64 mls/hr IV . [id number] [facility] Rx#:[id number] Oral 240 Output: Urine 510 1380 Other: Voiding Method Indwelling Catheter Indwelling Catheter ABP, PAP, CO, CI - Last Documented Arterial Blood Pressure 128/45 - Labs CBC & Chem 7: 03/16/24 04:24 03/16/24 04:24 Labs: Abnormal Lab Results - Last 24 Hours (Table) 03/15/24 03/15/24 03/15/24 Range/Units 15:24 15:31 15:46 RBC (4.30-5.90) m/uL Hgb (13.0-17.5) gm/dL Hct (39.0-53.0) % MCHC (31.0-37.0) g/dL Lymphocytes # (1.0-4.8) k/uL ABG pH 7.05 L* (7.35-7.45) ABG pCO2 >98 H* (35-45) mmHg ABG pO2 (83-108) mmHg ABG HCO3 (21-25) mmol/L ABG Total CO2 (19-24) mmol/L ABG O2 Saturation (94-97) % Hemoglobin 10.7 L (13.0-17.5) gm/dL Carbon Dioxide (22-30) mmol/L BUN (9-20) mg/dL Creatinine (0.66-1.25) mg/dL Glucose (74-99) mg/dL POC Glucose (mg/dL) 219 H 134 H (70-110) mg/dL Calcium (8.4-10.2) mg/dL Magnesium (1.6-2.3) mg/dL Total Protein (6.3-8.2) g/dL Albumin (3.5-5.0) g/dL 03/15/24 03/15/24 03/15/24 Range/Units 16:47 16:49 16:49 RBC 3.73 L (4.30-5.90) m/uL Hgb 9.9 L (13.0-17.5) gm/dL Hct 34.6 L (39.0-53.0) % MCHC 28.7 L (31.0-37.0) g/dL Lymphocytes # 0.4 L (1.0-4.8) k/uL ABG pH 7.27 L (7.35-7.45) ABG pCO2 80 H* (35-45) mmHg ABG pO2 325 H (83-108) mmHg ABG HCO3 36 H (21-25) mmol/L ABG Total CO2 39 H (19-24) mmol/L ABG O2 Saturation >100.0 H (94-97) % Hemoglobin 9.7 L (13.0-17.5) gm/dL Carbon Dioxide 35 H (22-30) mmol/L BUN 32 H (9-20) mg/dL Creatinine 1.35 H (0.66-1.25) mg/dL Glucose 115 H (74-99) mg/dL POC Glucose (mg/dL) (70-110) mg/dL Calcium 8.3 L (8.4-10.2) mg/dL Magnesium 2.5 H (1.6-2.3) mg/dL Total Protein (6.3-8.2) g/dL Albumin (3.5-5.0) g/dL 03/15/24 03/15/24 03/16/24 Range/Units 16:50 23:35 04:15 RBC (4.30-5.90) m/uL Hgb (13.0-17.5) gm/dL Hct (39.0-53.0) % MCHC (31.0-37.0) g/dL Lymphocytes # (1.0-4.8) k/uL ABG pH 7.49 H (7.35-7.45) ABG pCO2 51 H (35-45) mmHg ABG pO2 77 L (83-108) mmHg ABG HCO3 38 H (21-25) mmol/L ABG Total CO2 40 H (19-24) mmol/L ABG O2 Saturation 97.3 H (94-97) % Hemoglobin 9.5 L (13.0-17.5) gm/dL Carbon Dioxide 36 H (22-30) mmol/L BUN 31 H (9-20) mg/dL Creatinine (0.66-1.25) mg/dL Glucose (74-99) mg/dL POC Glucose (mg/dL) 116 H (70-110) mg/dL Calcium 8.1 L (8.4-10.2) mg/dL Magnesium 2.5 H (1.6-2.3) mg/dL Total Protein 5.6 L (6.3-8.2) g/dL Albumin 2.7 L (3.5-5.0) g/dL 03/16/24 03/16/24 03/16/24 Range/Units 04:24 04:24 09:55 RBC 3.55 L (4.30-5.90) m/uL Hgb 9.3 L (13.0-17.5) gm/dL Hct 30.9 L (39.0-53.0) % MCHC 30.0 L (31.0-37.0) g/dL Lymphocytes # 0.5 L (1.0-4.8) k/uL ABG pH (7.35-7.45) ABG pCO2 60 H (35-45) mmHg ABG pO2 74 L (83-108) mmHg ABG HCO3 39 H (21-25) mmol/L ABG Total CO2 41 H (19-24) mmol/L ABG O2 Saturation (94-97) % Hemoglobin 9.4 L (13.0-17.5) gm/dL Carbon Dioxide 39 H (22-30) mmol/L BUN 30 H (9-20) mg/dL Creatinine 1.28 H (0.66-1.25) mg/dL Glucose (74-99) mg/dL POC Glucose (mg/dL) (70-110) mg/dL Calcium 8.2 L (8.4-10.2) mg/dL Magnesium 2.6 H (1.6-2.3) mg/dL Total Protein 5.9 L (6.3-8.2) g/dL Albumin 2.8 L (3.5-5.0) g/dL Microbiology - Last 24 Hours (Table) 03/14/24 07:37 Blood Culture - Preliminary Blood
[2024-03-16 15:13] VITALS: BMI 29.5
[2024-03-16] MEDS: METOPROLOL SUCCINATE (ER) 25 MG TAB.ER.24H PO SCH (17:34)
[2024-03-16] MEDS: SPIRONOLACTONE 25 MG TAB PO SCH (17:35)
[2024-03-17 00:18] LABS: Glucose,Whole Blood 80 mg/dL (70-110)
[2024-03-17 05:26] LABS: Basophils % (A) 1 %; Eosinophils # (A) 0.1 k/uL (0-0.7); Eosinophils % (A) 4 %; HCT 30.4 % (39.0-53.0); HGB 9.3 gm/dL (13.0-17.5); Hypochromasia Marked; Lymphocytes # (A) 0.6 k/uL (1.0-4.8); Lymphocytes % (A) 17 %; MCH 26.6 pg (25.0-35.0); MCHC 30.6 g/dL (31.0-37.0); MCV 86.7 fL (80.0-100.0); Mean Platelet Volume 8.6; Monocytes # (A) 0.4 k/uL (0-1.0); Monocytes % (A) 11 %; Neutrophils # (A) 2.5 k/uL (1.3-7.7); Neutrophils % (A) 66 %; Platelet Count 231 k/uL (150-450); RDW 15.1 % (11.5-15.5); WBC 3.8 k/uL (3.8-10.6)
[2024-03-17 06:01] LABS: African American GFR (CKD) 67 (>60 ml/min/1.73 sqM); Blood Urea Nitrogen 26 mg/dL (9-20); Calcium 7.9 mg/dL (8.4-10.2); Chloride 96 mmol/L (98-107); Glucose 79 mg/dL (74-99); Non-African American GFR(CKD) 58 (>60 ml/min/1.73 sqM); Potassium 3.7 mmol/L (3.5-5.1); Sodium 141 mmol/L (137-145)
[2024-03-17 06:08] LABS: Anion Gap 8 mmol/L
[2024-03-17 06:19] LABS: Carbon Dioxide 37 mmol/L (22-30)
[2024-03-17] MEDS: POTASSIUM CHLORIDE 10 MEQ in WATER FOR INJECTION 1 100ML.BAG IVPB SCH (06:45)
--- NOTE | 2024-03-17 07:48 | XR ---
EXAMINATION TYPE: XR chest 1V portable DATE OF EXAM: 03/17/2024 COMPARISON: 03/16/2024 CLINICAL INDICATION: Male, 78 years old with history of Tube placement; , TECHNIQUE: XR chest 1V portable views of the chest. FINDINGS: ET tube has been removed. NG tube has been persistent diffuse bilateral airspace disease with small p leural effusion. Borderline cardiomegaly. No pneumothorax. Osseous structures are stable. IMPRESSION: 1. Stable diffuse bilateral airspace disease. [facility], , 03/17/2024 7:45 AM
[2024-03-17] MEDS: guaiFENesin 600 MG TABLET.ER PO SCH (10:10)
--- NOTE | 2024-03-17 12:02 | P.PN ---
Subjective Progress Note Date: 03/17/24 Principal diagnosis: Acute hypoxic and hypercapnic respiratory failure secondary to acute congestive heart failure, possible underlying pneumonia, could be aspiration pneumonia or community-acquired pneumonia This is a 78-year-old male patient with a known history of atrial fibrillation anticoagulated with Eliquis, hypertension, hyperlipidemia, BPH and recent femur fracture. He was brought in here early this morning after having complaints of increasing shortness of breath. Upon arrival by EMS they found him to have an O2 saturation of 60% and initially had refused treatment. They were called back a couple hours later and the patient was brought into the emergency room about 6:00 this morning. Chest x-ray revealed bilateral pulmonary edema with small pleural effusions consistent with congestive heart failure. CT angiogram ruled out central pulmonary embolism. There is large bilateral pleural effusions with diffuse airspace disease possible pneumonia versus pulmonary edema. White count 6.0. Hemoglobin 10.3. Platelets 307. D-dimer 1.47. INR 1.0. Sodium 139. Potassium 4.5. Bicarb 33. BUN 28. Creatinine 0.90. Glucose 110. proBNP 2540. Viral screen was negative. Troponin negative x 1. Arterial blood gases on 100% FiO2 revealed a PaO2 of 171. pCO2 85. pH 7.22. He is placed on BiPAP currently 14/6 and 50% FiO2. He is afebrile. Bradycardic in the 50s. Blood pressure stable. Mean arterial pressure in the 70s. He is seen today in consu ltation in the emergency department. He is awake and alert. He is asking to go home. He is continued on BiPAP. He was initiated on ceftriaxone. Continued on Bumex. Anticoagulated with Eliquis. Seen today on 03/16/2024, remains in the ICU, remains intubated and mechanically ventilated. He is on assist-control rate of 16 tidal volume 500 FiO2 40% PEEP of 8 patient was on propofol at 30 mcg/kg/min also on norepinephrine at 0. 03 mcg/kg/min, remains empirically on Zosyn, still receiving Lasix every 8 hours 40 mg. Remains on Eliquis. Patient seems to have pinpoint pupils however after pr opofol was discontinued, patient woke up, and his pupils were noted to be normal. Hence no need for CT of the brain at this point. Patient seems to be appropriate after he was taken off propofol, hence I recommended a trial of pressure support and CPAP, patient was placed on pressure support of 10, CPAP, and FiO2 at 50%, this was done for about an hour, follow-up ABG on 40% FiO2 and pressure support showed a pO2 of 74 pCO2 60 pH of 7.42 and the patient was again appropriate, recommended extubation. He was placed on BiPAP 14/6/50% which will be titrated down to 40%. Patient had blood cultures negative so far, sputum cultures were sent today. WBC count is 5.7 hemoglobin 9.3, Basic metabolic profile is normal BUN is 30 creatinine 1.28 chest x-ray continues show bilateral airspace disease mostly involving upper lobes. Seen today on 02/26/2024, patient was extubated yesterday, tolerated the extubation well, overnight he was kept on BiPAP 16/6/50% patient remains on Lasix 40 mg IV push every 8 hours remains on Zosyn and Eliquis, clinically the patient is feeling much better breathing a lot easier, I was able to titrate him down to 2 L nasal cannula and he seems to be doing well. Neurologically patient is weak but seems to be very appropriate. WBC count is 3.8 hemoglobin is 9.3el ectrolytes are normal BUN is 26 creatinine down to 1.21 blood cultures and sputum cultures remain negative so far. Chest x-ray continues to show diffuse bilateral airspace disease with small pleural effusions Objective - Vital Signs Vital signs: Vital Signs Temp 98.0 F 03/17/24 08:00 Pulse 54 L 03/17/24 11:00 Resp 18 03/17/24 11:00 BP 117/58 03/17/24 11:00 Pulse Ox 95 03/17/24 11:00 FiO2 4 03/17/24 08:04 Intake & Output 03/16/24 03/17/24 03/17/24 18:59 06:59 18:59 Intake Total 499.563 306 215 Output Total 1295 2070 1115 Balance -062.252 -1964 -900 Weight 96 kg Intake: IV 353 306 115 0.9 Sodium Chloride 220 240 100 Invasive Line 3 30 Piperacillin-Tazobactam 3 100 .375 gm In Sodium Chloride 0.9% 100 ml @ 25 mls/hr IVPB Q8H [facility] Rx#: [id number] Pressure Bag (0.9 Sodium 33 36 15 Chloride) Intake, IV Titration 146.563 100 Amount Norepinephrine 4 mg In 52.611 Sodium Chloride 0.9% 250 ml @ 0.03 MCG/KG/MIN 10. 973 mls/hr IV .[id number] [facility] Rx#:[id number] Potassium Chloride 10 meq 100 In Water For Injection 1 100ml.bag @ 100 mls/hr IVPB Q1H [facility] Rx#: [id number] propofoL 1,000 mg In 93.952 Empty Bag 1 bag @ 15 MCG/ KG/MIN 8.64 mls/hr IV . [id number] [facility] Rx#:[id number] Output: Urine 1295 2070 1115 Other: Voiding Method Indwelling Catheter Indwelling Catheter Indwelling Catheter # Bowel Movements 1 ABP, PAP, CO, CI - Last Documented Arterial Blood Pressure 137/45 - Exam GENERAL EXAM: 78-year-old white male, on 2 L nasal cannula, not in distress HEAD: Normocephalic. EYES: Normal reaction of pupils, equal size. NOSE: Clear with pink turbinates. THROAT: No erythema or exudates. NECK: No masses, no JVD. CHEST: No chest wall deformity. LUNGS: Crackles and rhonchi noted bilaterally CVS: S1 and S2 normal with an audible murmur, regular rhythm. ABDOMEN: No hepatosplenomegaly, normal bowel sounds, no guarding or rigidity. SKIN: No rashes CENTRAL NERVOUS SYSTEM: Alert and oriented x 3 no gross focal deficit, patient is generally weak EXTREMITIES: 1+ bipedal edema no clubbing, no cyanosis. - Labs CBC & Chem 7: 03/17/24 05:15 03/17/24 05:15 Labs: Abnormal Lab Results - Last 24 Hours (Table) 03/17/24 03/17/24 Range/Units 05:15 05:15 RBC 3.50 L (4.30-5.90) m/uL Hgb 9.3 L (13.0-17.5) gm/dL Hct 30.4 L (39.0-53.0) % MCHC 30.6 L (31.0-37.0) g/dL Lymphocytes # 0.6 L (1.0-4.8) k/uL Chloride 96 L (98-107) mmol/L Carbon Dioxide 37 H (22-30) mmol/L BUN 26 H (9-20) mg/dL Calcium 7.9 L (8.4-10.2) mg/dL Microbiology - Last 24 Hours (Table) 03/15/24 15:57 Gram Stain - Preliminary Sputum 03/14/24 07:37 Blood Culture - Preliminary Blood Assessment and Plan Assessment: Impression: Acute hypoxemic and hypercapnic respiratory failure secondary to an acute exacerbation of diastolic congestive heart failure and valvular heart dise ase,/aortic stenosis requiring intubation on 03/15/2024, extubated on 03/16/2024. History of atrial fibrillation, anticoagulated with Eliquis Recent femur fracture requiring hospitalization and subsequent placement at [facility] then discharged to home Benign prostatic hyperplasia Hypertension Hyperlipidemia history of aortic valve stenosis Plan: Continue to monitor the patient in the ICU Continue BiPAP at night and nasal cannula during the day Continue diuretics Continue antibiotics GI and DVT prophylaxis Daily monitoring of labs and renal profile, check cultures including blood and sputum Procalcitonin level was normal Reviewed echocardiogram report Continue Eliquis Continue BiPAP at night or as needed Patient remains marginal, will continue to monitor in the ICU Time with Patient: Less than 30
--- NOTE | 2024-03-17 14:12 | P.PN ---
Subjective Progress Note Date: 03/17/24 Chevy French is a 78-year-old male patient who presented with complaints of shortness of breath per patient and family symptoms started about a week ago but significantly increased this morning and EMS was called patient was found to be satting 60% on room air patient denies any recent illness or chest pain. Patient has a past medical history of femur fracture in January 2024 with repair chest x-ray was completed showing correlation for CHF with bilateral pulmonary edema small pleural effusions CTA of the chest performed showing limited assessment for pulmonary embolism due to motion artifact and suboptimal enhancement large bilateral pleural effusion with diffuse airspace disease correlation for diffuse pneumonia or pulmonary edema. ABGs performed showing pH of 7.22, pCO2 of 85, pO2 of 171 and sodium bicarb 35. Patient was started on BiPAP in ER patient also started on IV antibiotics. Influenza RSV and COVID-19 negative. At this time patient will be admitted pulmonary services consulted 03/15. Patient seen and examined. Patient very lethargic, hard to arouse, WBC this morning is 5.9, hemoglobin 8.4, platelet count 312, sodium 142, potassium 4.9, BUN 23, creatinine 1.12. 03/16. Patient seen and examined. Patient was A teamed afternoon and had to be intubated. Blood work done showed WBC 5.7, hemoglobin 9.3, platelet count 366, sodium 141, potassium 3.9, BUN 30, creatinine 1.28,. Patient doing much better this morning, patient was extubated, currently on BiPAP 03/17. Patient seen and examined. Breathing is improving, states he feels much better. Able to maintain a conversation. REVIEW OF SYSTEMS: Denies any chest pain. Denies any fever or chills. Denies any nausea or vomiting. PHYSICAL EXAMINATION: GENERAL: The patient is alert HEENT: Pupils are round and equally reacting to light. CARDIOVASCULAR: S1 and S2 present. No murmurs, rubs, or gallops. PULMONARY: Coarse breath sound bilaterally, no crackles audible ABDOMEN: Soft, nontender, nondistended, normoactive bowel sounds. No palpable organomegaly. MUSCULOSKELETAL: No joint swelling or deformity. EXTREMITIES: No cyanosis, clubbing, or pedal edema. NEUROLOGICAL: Alert SKIN: No rashes. Assessment and plan Acute hypercapnic respiratory failure requiring mechanical ventilation, currently extubated and on BiPAP Bacterial pneumonia Pulmonary edema Bilateral pleural effusion Acute combined systolic and diastolic CHF History of atrial fibrillation currently on Eliquis Hypertension hyperlipidemia History of left femur fracture with repair in January 2024 History of urinary retention follows with urology services outpatient Monitor vital signs Monitor CBC Monitor CMP Continue telemetry monitoring Continue oxygen supplementation CEncourage use of BiPAP as needed Follow-up on blood culture Follow-up on sputum culture Strict I's and O's, daily weights, continue IV Lasix 40 mg every 8 Continue amiodarone, Eliquis metoprolol Continue IV Zosyn Echo pending Cardiology following Pulmonology following Labs and medication were reviewed.. Continue same treatment. Continue with symptomatic treatment. Resume home medication. Monitor labs and vitals. DVT and GI prophylaxis. Further recommendations as per clinical course of the patient Dictation was produced using [employer] dictation software. please excuse any grammatical, word or spelling errors. Objective - Vital Signs Vital signs: Vital Signs Temp 98.0 F 03/17/24 08:00 Pulse 53 L 03/17/24 13:00 Resp 23 03/17/24 13:00 BP 121/58 03/17/24 13:00 Pulse Ox 93 L 03/17/24 13:00 FiO2 4 03/17/24 08:04 Intake & Output 03/16/24 03/17/24 03/17/24 18:59 06:59 18:59 Intake Total 499.563 306 261 Output Total 1295 2070 1370 Balance -795.437 -1764 -1109 Weight 96 kg Intake: IV 353 306 161 0.9 Sodium Chloride 220 240 140 Invasive Line 3 30 Piperacillin-Tazobactam 3 100 .375 gm In Sodium Chloride 0.9% 100 ml @ 25 mls/hr IVPB Q8H [facility] Rx#: [id number] Pressure Bag (0.9 Sodium 33 36 21 Chloride) Intake, IV Titration 146.563 100 Amount Norepinephrine 4 mg In 52.611 Sodium Chloride 0.9% 250 ml @ 0.03 MCG/KG/MIN 10. 973 mls/hr IV .[id number] [facility] Rx#:[id number] Potassium Chloride 10 meq 100 In Water For Injection 1 100ml.bag @ 100 mls/hr IVPB Q1H [facility] Rx#: [id number] propofoL 1,000 mg In 93.952 Empty Bag 1 bag @ 15 MCG/ KG/MIN 8.64 mls/hr IV . [id number] [facility] Rx#:[id number] Output: Urine 1295 2070 1370 Other: Voiding Method Indwelling Catheter Indwelling Catheter Indwelling Catheter # Bowel Movements 1 ABP, PAP, CO, CI - Last Documented Arterial Blood Pressure 122/41 - Labs CBC & Chem 7: 03/17/24 05:15 03/17/24 05:15 Labs: Abnormal Lab Results - Last 24 Hours (Table) 03/17/24 03/17/24 Range/Units 05:15 05:15 RBC 3.50 L (4.30-5.90) m/uL Hgb 9.3 L (13.0-17.5) gm/dL Hct 30.4 L (39.0-53.0) % MCHC 30.6 L (31.0-37.0) g/dL Lymphocytes # 0.6 L (1.0-4.8) k/uL Chloride 96 L (98-107) mmol/L Carbon Dioxide 37 H (22-30) mmol/L BUN 26 H (9-20) mg/dL Calcium 7.9 L (8.4-10.2) mg/dL Microbiology - Last 24 Hours (Table) 03/15/24 15:57 Gram Stain - Preliminary Sputum Sputum Culture - Preliminary 03/14/24 07:37 Blood Culture - Preliminary Blood
--- NOTE | 2024-03-17 14:59 | P.PN ---
Subjective Progress Note Date: 03/17/24 Principal diagnosis: Reason for follow-up is pneumonia Patient is a 78-year-old male with a past medical history significant for hypertension hyperlipidemia BPH atrial fibrillation presenting to the hospital for evaluation of increasing shortness of breath with initial concern for possible CHF did have worsening of his respiratory status also become unresponsive requiring intubation and transferred to ICU ID consulted for possible pneumonia. On today's evaluation that is 03/17/2024, the patient did have resolution of his fever and his afebrile today, the patient is more awake and alert breathing comfortably still requiring BiPAP off-and-on patient denies having any chest pain no worsening cough no abdominal pain and no diarrhea has been reported. Patient white count is 3.8, creatinine is 1.21 blood and sputum cultures currently pending Objective - Vital Signs Vital signs: Vital Signs Temp 98.0 F 03/17/24 08:00 Pulse 58 L 03/17/24 14:00 Resp 19 03/17/24 14:00 BP 121/58 03/17/24 13:00 Pulse Ox 96 03/17/24 14:00 FiO2 50 03/17/24 14:51 Intake & Output 03/16/24 03/17/24 03/17/24 18:59 06:59 18:59 Intake Total 499.563 306 284 Output Total 1295 2070 1470 Balance -795.437 -1764 -1186 Weight 96 kg Intake: IV 353 306 184 0.9 Sodium Chloride 220 240 160 Invasive Line 3 30 Piperacillin-Tazobactam 3 100 .375 gm In Sodium Chloride 0.9% 100 ml @ 25 mls/hr IVPB Q8H [facility] Rx#: [id number] Pressure Bag (0.9 Sodium 33 36 24 Chloride) Intake, IV Titration 146.563 100 Amount Norepinephrine 4 mg In 52.611 Sodium Chloride 0.9% 250 ml @ 0.03 MCG/KG/MIN 10. 973 mls/hr IV .[id number] [facility] Rx#:[id number] Potassium Chloride 10 meq 100 In Water For Injection 1 100ml.bag @ 100 mls/hr IVPB Q1H [facility] Rx#: [id number] propofoL 1,000 mg In 93.952 Empty Bag 1 bag @ 15 MCG/ KG/MIN 8.64 mls/hr IV . [id number] [facility] Rx#:[id number] Output: Urine 1295 2070 1470 Other: Voiding Method Indwelling Catheter Indwelling Catheter Indwelling Catheter # Bowel Movements 1 ABP, PAP, CO, CI - Last Documented Arterial Blood Pressure 128/46 - Exam GENERAL DESCRIPTION: An elderly male lying in bed in no distress RESPIRATORY SYSTEM: Unlabored breathing , coarse breath sounds bilaterally HEART: S1 S2 regular rate and rhythm , ABDOMEN: Soft , no tenderness EXTREMITIES: No edema feet - Labs CBC & Chem 7: 03/17/24 05:15 03/17/24 05:15 Labs: Abnormal Lab Results - Last 24 Hours (Table) 03/17/24 03/17/24 Range/Units 05:15 05:15 RBC 3.50 L (4.30-5.90) m/uL Hgb 9.3 L (13.0-17.5) gm/dL Hct 30.4 L (39.0-53.0) % MCHC 30.6 L (31.0-37.0) g/dL Lymphocytes # 0.6 L (1.0-4.8) k/uL Chloride 96 L (98-107) mmol/L Carbon Dioxide 37 H (22-30) mmol/L BUN 26 H (9-20) mg/dL Calcium 7.9 L (8.4-10.2) mg/dL Microbiology - Last 24 Hours (Table) 03/15/24 15:57 Gram Stain - Preliminary Sputum Sputum Culture - Preliminary 03/14/24 07:37 Blood Culture - Preliminary Blood Assessment and Plan (1) Pneumonia Current Visit: Yes Status: Acute Code(s): J18.9 - PNEUMONIA, UNSPECIFIED ORGANISM SNOMED Code(s): 026287274 Plan: 1patient presented to hospital with increasing shortness of breath which is likely multifactorial patient initial workup was suggestive of mostly bilateral pulmonary subtle congestion effusion in this patient who did have normal white count not febrile which is all suggestive of possible CHF exacerbation now with worsening of his respiratory status requiring intubation and admission to the ICU possible component of pneumonia 2-patient did have resolution of his fever white count is normal culture cur rently pending we will continue with Zosyn while waiting for the culture to finalize Dictation was produced using [employer] dictation software. please excuse any grammatical, word or spelling errors. Time with Patient: Less than 30
--- NOTE | 2024-03-17 16:04 | P.PN ---
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 His chest x-ray showed bilateral pulm congestion. Cardiology was consulted for acute CHF exacerbation management. CT chest angiogram was negative for PE. He does have bilateral pleural effusion. SUBJECTIVE: BP 129/40, heart rate 54, sinus rhythm on telemetry, appears clinically improved, on BiPAP support, 1+ pitting edema lower extremity. He is off norepinephrine ABG today shows pH 7.4, pCO2 60, pO2 74, BUN 30, creatinine 1.28, Hb 9.3 03/17/2024 BUN 26, creatinine 1.2, Hb 9.3 Continues to be in sinus rhythm on telemetry. Bradycardic in the nighttime. BP 121/58, heart rate 58 bpm PHYSICAL EXAMINATION Vital signs reviewed. Head: Normocephalic. Eyes: Sclerae nonicteric. Neck: Brisk carotid upstroke, no jugular venous distention. Lungs: Clear to auscultation. Heart: Regular rate and rhythm, S1-S2, mild systolic murmur audible Abdomen: Soft nontender, bowel sounds present, Extremities: 1+ pitting edema bilateral lower extremity Neuro: Alert,. Detailed neuro exam was not performed. ASSESSMENT Acute hypoxic hypercapnic respiratory failure Acute CHFpEF exacerbation Paroxysmal atrial fibrillation, currently sinus rhythm Moderate aortic stenosis Multifocal pneumonia Bilateral moderate pleural effusion Obesity with concerns of ELLIE Cardiac testing Echocardiogram EF 60%, moderate aortic stenosis, No obvious regional wall motion abnormality, mild LVH, moderate pulmonary hypertension RVSP 45 mmHg PLAN Continue Eliquis 5 mg twice daily, Lipitor 40 mg daily, Reduce Lasix to 40 mg IV twice daily. Increase Aldactone to 25 mg daily Discontinue amiodarone. Discontinue metoprolol as patient continues to have bradycardia in the nighttime. Supplement iron Prior to discharge he should be on a SGLT2. I recommend outpatient evaluation for paroxysmal A-fib. Especially because patient is not able to tolerate beta-blockers because of nighttime bradycardia. Objective - Vital Signs Vital signs: Vital Signs Temp 98.0 F 03/17/24 08:00 Pulse 47 L 03/17/24 15:00 Resp 16 03/17/24 15:00 BP 121/58 03/17/24 13:00 Pulse Ox 98 03/17/24 15:00 FiO2 50 12/27/24 15:00 Intake & Output 03/16/24 03/17/24 03/17/24 18:59 06:59 18:59 Intake Total 499.563 306 307 Output Total 1295 2070 1530 Balance -795.437 -1764 -1223 Weight 96 kg Intake: IV 353 306 207 0.9 Sodium Chloride 220 240 180 Invasive Line 3 30 Piperacillin-Tazobactam 3 100 .375 gm In Sodium Chloride 0.9% 100 ml @ 25 mls/hr IVPB Q8H [facility] Rx#: [id number] Pressure Bag (0.9 Sodium 33 36 27 Chloride) Intake, IV Titration 146.563 100 Amount Norepinephrine 4 mg In 52.611 Sodium Chloride 0.9% 250 ml @ 0.03 MCG/KG/MIN 10. 973 mls/hr IV .[id number] [facility] Rx#:[id number] Potassium Chloride 10 meq 100 In Water For Injection 1 100ml.bag @ 100 mls/hr IVPB Q1H [facility] Rx#: [id number] propofoL 1,000 mg In 93.952 Empty Bag 1 bag @ 15 MCG/ KG/MIN 8.64 mls/hr IV . [id number] [facility] Rx#:[id number] Output: Urine 1295 2070 1530 Other: Voiding Method Indwelling Catheter Indwelling Catheter Indwelling Catheter # Bowel Movements 1 ABP, PAP, CO, CI - Last Documented Arterial Blood Pressure 112/37 - Labs CBC & Chem 7: 03/17/24 05:15 03/17/24 15:10 Labs: Abnormal Lab Results - Last 24 Hours (Table) 03/17/24 03/17/24 Range/Units 05:15 05:15 RBC 3.50 L (4.30-5.90) m/uL Hgb 9.3 L (13.0-17.5) gm/dL Hct 30.4 L (39.0-53.0) % MCHC 30.6 L (31.0-37.0) g/dL Lymphocytes # 0.6 L (1.0-4.8) k/uL Chloride 96 L (98-107) mmol/L Carbon Dioxide 37 H (22-30) mmol/L BUN 26 H (9-20) mg/dL Calcium 7.9 L (8.4-10.2) mg/dL Microbiology - Last 24 Hours (Table) 03/15/24 15:57 Gram Stain - Preliminary Sputum Sputum Culture - Preliminary 03/14/24 07:37 Blood Culture - Preliminary Blood
[2024-03-17] MEDS: IRON PS CMPLX/VIT B12/FA 1 EACH CAP PO SCH (17:32)
[2024-03-17] MEDS: POTASSIUM CHLORIDE ER 20 MEQ TAB.ER PO SCH (17:33)
[2024-03-17] MEDS: FUROSEMIDE 10 MG/ML 4 ML VIAL IV SCH (20:21)
[2024-03-18 05:00] LABS: RBC 3.63 m/uL (4.30-5.90)
[2024-03-18 05:01] LABS: Basophils % (A) 1 %; Eosinophils # (A) 0.3 k/uL (0-0.7); Eosinophils % (A) 9 %; HCT 31.5 % (39.0-53.0); HGB 9.6 gm/dL (13.0-17.5); Hypochromasia Marked; Lymphocytes # (A) 0.8 k/uL (1.0-4.8); Lymphocytes % (A) 19 %; MCH 26.5 pg (25.0-35.0); MCHC 30.5 g/dL (31.0-37.0); MCV 86.8 fL (80.0-100.0); Mean Platelet Volume 6.6; Monocytes # (A) 0.4 k/uL (0-1.0); Monocytes % (A) 10 %; Neutrophils # (A) 2.4 k/uL (1.3-7.7); Neutrophils % (A) 60 %; Platelet Count 262 k/uL (150-450); RDW 14.9 % (11.5-15.5)
[2024-03-18 05:24] LABS: African American GFR (CKD) 78 (>60 ml/min/1.73 sqM); Blood Urea Nitrogen 24 mg/dL (9-20); Calcium 8.2 mg/dL (8.4-10.2); Chloride 98 mmol/L (98-107); Glucose 85 mg/dL (74-99); Magnesium 2.4 mg/dL (1.6-2.3); Non-African American GFR(CKD) 68 (>60 ml/min/1.73 sqM); Potassium 4.2 mmol/L (3.5-5.1); Sodium 139 mmol/L (137-145)
[2024-03-18 05:30] LABS: Anion Gap 5 mmol/L; Carbon Dioxide 36 mmol/L (22-30)
--- NOTE | 2024-03-18 07:31 | XR ---
EXAMINATION TYPE: XR chest 1V portable DATE OF EXAM: 03/18/2024 4:39 AM COMPARISON: Chest radiograph from one day prior. CT CLINICAL INDICATION: Male, 78 years old with history of Tube placement; shortness of breath. TECHNIQUE: XR chest 1V portable Frontal view of the chest. FINDINGS: Lungs/Pleura: Similar multifocal airspace opacities. No evidence of pneumothorax. The bilateral pleur al effusions are not well appreciated compared to CT.. Pulmonary vascularity: Unremarkable. Heart/mediastinum: Cardiomediastinal silhouette is unremarkable. Musculoskeletal: No acute osseous pathology. IMPRESSION: Similar multifocal airspace opacities. [facility], , 03/18/2024 7:29 AM
[2024-03-18] MEDS: SPIRONOLACTONE 25 MG TAB PO SCH (09:42)
--- NOTE | 2024-03-18 14:29 | P.PN ---
Subjective Progress Note Date: 03/18/24 Principal diagnosis: Acute hypoxic and hypercapnic respiratory failure secondary to acute congestive heart failure, possible underlying pneumonia, could be aspiration pneumonia or community-acquired pneumonia This is a 78-year-old male patient with a known history of atrial fibrillation anticoagulated with Eliquis, hypertension, hyperlipidemia, BPH and recent femur fracture. He was brought in here early this morning after having complaints of increasing shortness of breath. Upon arrival by EMS they found him to have an O2 saturation of 60% and initially had refused treatment. They were called back a couple hours later and the patient was brought into the emergency room about 6:00 this morning. Chest x-ray revealed bilateral pulmonary edema with small pleural effusions consistent with congestive heart failure. CT angiogram ruled out central pulmonary embolism. There is large bilateral pleural effusions with diffuse airspace disease possible pneumonia versus pulmonary edema. White count 6.0. Hemoglobin 10.3. Platelets 307. D-dimer 1.47. INR 1.0. Sodium 139. Potassium 4.5. Bicarb 33. BUN 28. Creatinine 0.90. Glucose 110. proBNP 2540. Viral screen was negative. Troponin negative x 1. Arterial blood gases on 100% FiO2 revealed a PaO2 of 171. pCO2 85. pH 7.22. He is placed on BiPAP currently 14/6 and 50% FiO2. He is afebrile. Bradycardic in the 50s. Blood pressure stable. Mean arterial pressure in the 70s. He is seen today in consu ltation in the emergency department. He is awake and alert. He is asking to go home. He is continued on BiPAP. He was initiated on ceftriaxone. Continued on Bumex. Anticoagulated with Eliquis. Seen today on 03/16/2024, remains in the ICU, remains intubated and mechanically ventilated. He is on assist-control rate of 16 tidal volume 500 FiO2 40% PEEP of 8 patient was on propofol at 30 mcg/kg/min also on norepinephrine at 0. 03 mcg/kg/min, remains empirically on Zosyn, still receiving Lasix every 8 hours 40 mg. Remains on Eliquis. Patient seems to have pinpoint pupils however after pr opofol was discontinued, patient woke up, and his pupils were noted to be normal. Hence no need for CT of the brain at this point. Patient seems to be appropriate after he was taken off propofol, hence I recommended a trial of pressure support and CPAP, patient was placed on pressure support of 10, CPAP, and FiO2 at 50%, this was done for about an hour, follow-up ABG on 40% FiO2 and pressure support showed a pO2 of 74 pCO2 60 pH of 7.42 and the patient was again appropriate, recommended extubation. He was placed on BiPAP 14/6/50% which will be titrated down to 40%. Patient had blood cultures negative so far, sputum cultures were sent today. WBC count is 5.7 hemoglobin 9.3, Basic metabolic profile is normal BUN is 30 creatinine 1.28 chest x-ray continues show bilateral airspace disease mostly involving upper lobes. Seen today on 02/26/2024, patient was extubated yesterday, tolerated the extubation well, overnight he was kept on BiPAP 16/6/50% patient remains on Lasix 40 mg IV push every 8 hours remains on Zosyn and Eliquis, clinically the patient is feeling much better breathing a lot easier, I was able to titrate him down to 2 L nasal cannula and he seems to be doing well. Neurologically patient is weak but seems to be very appropriate. WBC count is 3.8 hemoglobin is 9.3el ectrolytes are normal BUN is 26 creatinine down to 1.21 blood cultures and sputum cultures remain negative so far. Chest x-ray continues to show diffuse bilateral airspace disease with small pleural effusions Patient was seen today , patient is still in ICU, he is on 6 L nasal cannula, O2 saturation is in the high 90s. Intermittently or at night on BiPAP 16/6/50%. Remains on Lasix 40 mg IV push twice daily remains on Zosyn remains on Eliquis chest x-ray is showing slight improvement but clinically the patient is significantly improved. WBC count is 4 hemoglobin 9.6 electrolytes are normal renal profile is normal creatinine is down to 1.07 today from 1.35 few days ago patient remains in negative fluid balance since admission and continues to improve with diuretics. Objective - Vital Signs Vital signs: Vital Signs Temp 98.7 F 03/18/24 12:00 Pulse 53 L 03/18/24 14:00 Resp 14 03/18/24 14:00 BP 111/53 03/18/24 14:00 Pulse Ox 97 03/18/24 14:00 FiO2 50 03/18/24 04:14 Intake & Output 03/17/24 03/18/24 03/18/24 18:59 06:59 18:59 Intake Total 376 376 822 Output Total 1640 1335 1430 Balance -1504 -870 -118 Intake: IV 276 376 224 0.9 Sodium Chloride 240 240 100 Piperacillin-Tazobactam 3 100 100 .375 gm In Sodium Chloride 0.9% 100 ml @ 25 mls/hr IVPB Q8H [facility] Rx#: [id number] Pressure Bag (0.9 Sodium 36 36 24 Chloride) Intake, IV Titration 100 Amount Potassium Chloride 10 meq 100 In Water For Injection 1 100ml.bag @ 100 mls/hr IVPB Q1H [facility] Rx#: [id number] Oral 598 Output: Urine 1640 1335 1430 Other: Voiding Method Indwelling Catheter Indwelling Catheter Indwelling Catheter # Bowel Movements 1 ABP, PAP, CO, CI - Last Documented Arterial Blood Pressure 100/31 - Exam GENERAL EXAM: 78-year-old white male, on 4 L nasal cannula with O2 sat of 97% HEAD: Normocephalic. EYES: Normal reaction of pupils, equal size. NOSE: Clear with pink turbinates. THROAT: No erythema or exudates. NECK: No masses, no JVD. CHEST: No chest wall deformity. LUNGS: Crackles and rhonchi noted bilaterally CVS: S1 and S2 normal with an audible murmur, regular rhythm. ABDOMEN: No hepatosplenomegaly, normal bowel sounds, no guarding or rigidity. SKIN: No rashes CENTRAL NERVOUS SYSTEM: Alert and oriented x 3 no gross focal deficit, patient is generally weak EXTREMITIES: 1+ bipedal edema no clubbing, no cyanosis. - Labs CBC & Chem 7: 03/18/24 04:39 03/18/24 04:39 Labs: Abnormal Lab Results - Last 24 Hours (Table) 03/18/24 03/18/24 Range/Units 04:39 04:39 RBC 3.63 L (4.30-5.90) m/uL Hgb 9.6 L (13.0-17.5) gm/dL Hct 31.5 L (39.0-53.0) % MCHC 30.5 L (31.0-37.0) g/dL Lymphocytes # 0.8 L (1.0-4.8) k/uL Carbon Dioxide 36 H (22-30) mmol/L BUN 24 H (9-20) mg/dL Calcium 8.2 L (8.4-10.2) mg/dL Magnesium 2.4 H (1.6-2.3) mg/dL Microbiology - Last 24 Hours (Table) 03/15/24 15:57 Gram Stain - Final Sputum Sputum Culture - Final 03/14/24 07:37 Blood Culture - Preliminary Blood Assessment and Plan Assessment: Impression: Acute hypoxemic and hypercapnic respiratory failure secondary to an acute exacerbation of diastolic congestive heart failure and valvular heart disease,/aortic stenosis requiring intubation on 03/15/2024, extubated on 03/16/2024. History of atrial fibrillation, anticoagulated with Eliquis Recent femur fracture requiring hospitalization and subsequent placement at [facility] then discharged to home Benign prostatic hyperplasia Hypertension Hyperlipidemia history of aortic valve stenosis Plan: Continue to monitor the patient in the ICU Continue BiPAP at night and nasal cannula during the day Continue diuretics Continue antibiotics GI and DVT prophylaxis Procalcitonin level was normal Reviewed echocardiogram report Continue Eliquis Continue BiPAP at night or as needed Consider sending the patient out of the ICU to cardiac floor if bed is needed, hence will downgrade patient to 3 S. Time with Patient: Less than 30
--- NOTE | 2024-03-18 15:21 | P.PN ---
Subjective Progress Note Date: 03/18/24 Chevy French is a 78-year-old male patient who presented with complaints of shortness of breath per patient and family symptoms started about a week ago but significantly increased this morning and EMS was called patient was found to be satting 60% on room air patient denies any recent illness or chest pain. Patient has a past medical history of femur fracture in January 2024 with repair chest x-ray was completed showing correlation for CHF with bilateral pulmonary edema small pleural effusions CTA of the chest performed showing limited assessment for pulmonary embolism due to motion artifact and suboptimal enhancement large bilateral pleural effusion with diffuse airspace disease correlation for diffuse pneumonia or pulmonary edema. ABGs performed showing pH of 7.22, pCO2 of 85, pO2 of 171 and sodium bicarb 35. Patient was started on BiPAP in ER patient also started on IV antibiotics. Influenza RSV and COVID-19 negative. At this time patient will be admitted pulmonary services consulted 03/15. Patient seen and examined. Patient very lethargic, hard to arouse, WBC this morning is 5.9, hemoglobin 8.4, platelet count 312, sodium 142, potassium 4.9, BUN 23, creatinine 1.12. 03/16. Patient seen and examined. Patient was A teamed afternoon and had to be intubated. Blood work done showed WBC 5.7, hemoglobin 9.3, platelet count 366, sodium 141, potassium 3.9, BUN 30, creatinine 1.28,. Patient doing much better this morning, patient was extubated, currently on BiPAP 03/17. Patient seen and examined. Breathing is improving, states he feels much better. Able to maintain a conversation. 03/18. Patient seen and examined. States breathing is improved. Currently on 4 L of oxygen. REVIEW OF SYSTEMS: Denies any chest pain. Denies any fever or chills. Denies any nausea or vomiting. PHYSICAL EXAMINATION: GENERAL: The patient is alert HEENT: Pupils are round and equally reacting to light. CARDIOVASCULAR: S1 and S2 present. No murmurs, rubs, or gallops. PULMONARY: Coarse breath sound bilaterally, no crackles audible ABDOMEN: Soft, nontender, nondistended, normoactive bowel sounds. No palpable organomegaly. MUSCULOSKELETAL: No joint swelling or deformity. EXTREMITIES: No cyanosis, clubbing, or pedal edema. NEUROLOGICAL: Alert SKIN: No rashes. Assessment and plan Acute hypercapnic respiratory failure requiring mechanical ventilation, currently extubated and on BiPAP Bacterial pneumonia Pulmonary edema Bilateral pleural effusion Acute combined systolic and diastolic CHF History of atrial fibrillation currently on Eliquis Hypertension hyperlipidemia History of left femur fracture with repair in January 2024 History of urinary retention follows with urology services outpatient Monitor vital signs Monitor CBC Monitor CMP Continue telemetry monitoring Continue oxygen supplementation CEncourage use of BiPAP as needed Follow-up on blood culture Follow-up on sputum culture Strict I's and O's, daily weights, continue IV Lasix 40 mg every 12 Continue amiodarone, Eliquis metoprolol Continue IV Zosyn Echo done showed LVEF of 60 to 65%, no obvious regional wall motion abnormalities, mildly increased septal wall thickness Cardiology following Pulmonology following Labs and medication were reviewed.. Continue same treatment. Continue with symptomatic treatment. Resume home medication. Monitor labs and vitals. DVT and GI prophylaxis. Further recommendations as per clinical course of the patient Dictation was produced using [employer] dictation software. please excuse any grammatical, word or spelling errors. Objective - Vital Signs Vital signs: Vital Signs Temp 98.7 F 03/18/24 12:00 Pulse 53 L 03/18/24 14:00 Resp 14 03/18/24 14:00 BP 111/53 03/18/24 14:00 Pulse Ox 97 03/18/24 14:00 FiO2 50 03/18/24 04:14 Intake & Output 03/17/24 03/18/24 03/18/24 18:59 06:59 18:59 Intake Total 376 376 822 Output Total 1640 1335 1430 Balance -1264 -959 -608 Intake: IV 276 376 224 0.9 Sodium Chloride 240 240 100 Piperacillin-Tazobactam 3 100 100 .375 gm In Sodium Chloride 0.9% 100 ml @ 25 mls/hr IVPB Q8H [facility] Rx#: [id number] Pressure Bag (0.9 Sodium 36 36 24 Chloride) Intake, IV Titration 100 Amount Potassium Chloride 10 meq 100 In Water For Injection 1 100ml.bag @ 100 mls/hr IVPB Q1H [facility] Rx#: [id number] Oral 598 Output: Urine 1640 1335 1430 Other: Voiding Method Indwelling Catheter Indwelling Catheter Indwelling Catheter # Bowel Movements 1 ABP, PAP, CO, CI - Last Documented Arterial Blood Pressure 100/31 - Labs CBC & Chem 7: 03/18/24 04:39 03/18/24 04:39 Labs: Abnormal Lab Results - Last 24 Hours (Table) 03/18/24 03/18/24 Range/Units 04:39 04:39 RBC 3.63 L (4.30-5.90) m/uL Hgb 9.6 L (13.0-17.5) gm/dL Hct 31.5 L (39.0-53.0) % MCHC 30.5 L (31.0-37.0) g/dL Lymphocytes # 0.8 L (1.0-4.8) k/uL Carbon Dioxide 36 H (22-30) mmol/L BUN 24 H (9-20) mg/dL Calcium 8.2 L (8.4-10.2) mg/dL Magnesium 2.4 H (1.6-2.3) mg/dL Microbiology - Last 24 Hours (Table) 03/15/24 15:57 Gram Stain - Final Sputum Sputum Culture - Final 03/14/24 07:37 Blood Culture - Preliminary Blood
[2024-03-19 04:19] LABS: Basophils % (A) 0 %; Eosinophils # (A) 0.4 k/uL (0-0.7); Eosinophils % (A) 10 %; HGB 9.5 gm/dL (13.0-17.5); Hypochromasia Marked; Lymphocytes # (A) 0.7 k/uL (1.0-4.8); Lymphocytes % (A) 17 %; MCH 26.7 pg (25.0-35.0); MCHC 30.8 g/dL (31.0-37.0); MCV 86.9 fL (80.0-100.0); Monocytes # (A) 0.4 k/uL (0-1.0); Monocytes % (A) 9 %; Neutrophils # (A) 2.7 k/uL (1.3-7.7); Neutrophils % (A) 63 %; Platelet Count 258 k/uL (150-450); RBC 3.57 m/uL (4.30-5.90); RDW 14.7 % (11.5-15.5); WBC 4.4 k/uL (3.8-10.6)
[2024-03-19 04:34] LABS: African American GFR (CKD) 82 (>60 ml/min/1.73 sqM); Blood Urea Nitrogen 17 mg/dL (9-20); Calcium 8.1 mg/dL (8.4-10.2); Chloride 91 mmol/L (98-107); Glucose 88 mg/dL (74-99); Non-African American GFR(CKD) 71 (>60 ml/min/1.73 sqM); Potassium 3.8 mmol/L (3.5-5.1); Sodium 138 mmol/L (137-145)
[2024-03-19 04:41] LABS: Anion Gap 9 mmol/L
[2024-03-19 04:45] LABS: Carbon Dioxide 38 mmol/L (22-30)
[2024-03-19] MEDS: POTASSIUM CHLORIDE ER 20 MEQ TAB.ER PO SCH (05:40)
--- NOTE | 2024-03-19 07:29 | XR ---
EXAMINATION TYPE: XR chest 1V DATE OF EXAM: 03/19/2024 5:28 AM COMPARISON: Chest radiographs from 03/18/2024 CLINICAL INDICATION: Male, 78 years old with history of Assess lung status; TECHNIQUE: XR chest 1V Frontal view of the chest. FINDINGS: Lungs/Pleura: Similar multifocal airspace opacities. No evidence of pneumothorax or pleural effusion. Pulmonary vascularity: Unremarkable. Heart/mediastinum: Cardiomediastinal silhouette is prominent in size. Musculoskeletal: No acute osseous pathology. IMPRESSION: Similar multifocal airspace opacities. [facility], , 03/19/2024 7:27 AM
--- NOTE | 2024-03-19 12:21 | P.PN ---
Subjective Progress Note Date: 03/18/24 Principal diagnosis: Reason for follow-up is pneumonia Patient is a 78-year-old male with a past medical history significant for hypertension hyperlipidemia BPH atrial fibrillation presenting to the hospital for evaluation of increasing shortness of breath with initial concern for possible CHF did have worsening of his respiratory status also become unresponsive requiring intubation and transferred to ICU ID consulted for possible pneumonia. On today's evaluation that is 03/18/2024, patient did not have any fever and denies any chills, patient is breathing comfortably on 3 L current oxygen , patient with no chest pain and cough is decreased in intensity patient did not have any abdominal pain nausea vomiting or any loose stools. Patient white count is 4.0, creatinine is 1.07 Objective - Vital Signs Vital signs: Vital Signs Temp 98.7 F 03/18/24 12:00 Pulse 53 L 03/18/24 13:00 Resp 17 03/18/24 13:00 BP 110/79 03/18/24 13:00 Pulse Ox 96 03/18/24 13:00 FiO2 50 03/18/24 04:14 Intake & Output 03/17/24 03/18/24 03/18/24 18:59 06:59 18:59 Intake Total 376 376 698 Output Total 1640 1335 1055 Balance -6164 -959 -357 Intake: IV 276 376 218 0.9 Sodium Chloride 240 240 100 Piperacillin-Tazobactam 3 100 100 .375 gm In Sodium Chloride 0.9% 100 ml @ 25 mls/hr IVPB Q8H [facility] Rx#: [id number] Pressure Bag (0.9 Sodium 36 36 18 Chloride) Intake, IV Titration 100 Amount Potassium Chloride 10 meq 100 In Water For Injection 1 100ml.bag @ 100 mls/hr IVPB Q1H [facility] Rx#: [id number] Oral 480 Output: Urine 1640 1335 1055 Other: Voiding Method Indwelling Catheter Indwelling Catheter Indwelling Catheter # Bowel Movements 1 ABP, PAP, CO, CI - Last Documented Arterial Blood Pressure 100/30 - Exam GENERAL DESCRIPTION: An elderly male lying in bed in no distress RESPIRATORY SYSTEM: Unlabored breathing , coarse breath sounds bilaterally HEART: S1 S2 regular rate and rhythm , ABDOMEN: Soft , no tenderness EXTREMITIES: No edema feet - Labs CBC & Chem 7: 03/19/24 04:04 03/19/24 04:04 Labs: Abnormal Lab Results - Last 24 Hours (Table) 03/18/24 03/18/24 Range/Units 04:39 04:39 RBC 3.63 L (4.30-5.90) m/uL Hgb 9.6 L (13.0-17.5) gm/dL Hct 31.5 L (39.0-53.0) % MCHC 30.5 L (31.0-37.0) g/dL Lymphocytes # 0.8 L (1.0-4.8) k/uL Carbon Dioxide 36 H (22-30) mmol/L BUN 24 H (9-20) mg/dL Calcium 8.2 L (8.4-10.2) mg/dL Magnesium 2.4 H (1.6-2.3) mg/dL Microbiology - Last 24 Hours (Table) 03/15/24 15:57 Gram Stain - Final Sputum Sputum Culture - Final 03/14/24 07:37 Blood Culture - Preliminary Blood Assessment and Plan (1) Pneumonia Current Visit: Yes Status: Acute Code(s): J18.9 - PNEUMONIA, UNSPECIFIED ORGANISM SNOMED Code(s): 673997425 Plan: 1patient presented to hospital with increasing shortness of breath which is likely multifactorial patient initial workup was suggestive of mostly bilateral pulmonary subtle congestion effusion in this patient who did have normal white count not febrile which is all suggestive of possible CHF exacerbation now with worsening of his respiratory status requiring intubation and admission to the ICU possible component of pneumonia 2-patient did have resolution of his fever white count is normal, the patient blood and culture currently pending we will continue with Xander while waiting for the culture to finalize Dictation was produced using [employer] dictation software. please excuse any grammatical, word or spelling errors. Time with Patient: Less than 30
--- NOTE | 2024-03-19 12:22 | P.PN ---
Subjective Progress Note Date: 03/19/24 Principal diagnosis: Reason for follow-up is pneumonia Patient is a 78-year-old male with a past medical history significant for hypertension hyperlipidemia BPH atrial fibrillation presenting to the hospital for evaluation of increasing shortness of breath with initial concern for possible CHF did have worsening of his respiratory status also become unresponsive requiring intubation and transferred to ICU ID consulted for possible pneumonia. On today's evaluation that is 03/19/2024, Patient is afebrile patient is currently on 3 L current oxygen and denies having any shortness of breath, the patient denies any chest pain or any worsening cough, the patient denies any nausea vomiting did not have any abdominal pain and no diarrhea. Patient white count is 4.4, creatinine is 1.03 blood and sputum culture have been negative so far Objective - Vital Signs Vital signs: Vital Signs Temp 97.5 F L 03/19/24 09:00 Pulse 49 L 03/19/24 11:00 Resp 16 03/19/24 11:00 BP 120/65 03/19/24 11:00 Pulse Ox 97 03/19/24 11:00 FiO2 50 03/19/24 04:00 Intake & Output 03/18/24 03/19/24 03/19/24 18:59 06:59 18:59 Intake Total 914 451 415 Output Total 1590 1170 135 Balance -676 -719 280 Intake: IV 316 451 57 0.9 Sodium Chloride 180 240 20 Piperacillin-Tazobactam 3 100 175 25 .375 gm In Sodium Chloride 0.9% 100 ml @ 25 mls/hr IVPB Q8H [facility] Rx#: [id number] Pressure Bag (0.9 Sodium 36 36 12 Chloride) Oral 598 358 Output: Urine 1590 1170 135 Other: Voiding Method Indwelling Catheter Indwelling Catheter Indwelling Catheter # Bowel Movements 1 ABP, PAP, CO, CI - Last Documented Arterial Blood Pressure 122/42 - Exam GENERAL DESCRIPTION: An elderly male lying in bed in no distress RESPIRATORY SYSTEM: Unlabored breathing , coarse breath sounds bilaterally HEART: S1 S2 regular rate and rhythm , ABDOMEN: Soft , no tenderness EXTREMITIES: No edema feet - Labs CBC & Chem 7: 03/19/24 04:04 03/19/24 04:04 Labs: Abnormal Lab Results - Last 24 Hours (Table) 03/19/24 03/19/24 Range/Units 04:04 04:04 RBC 3.57 L (4.30-5.90) m/uL Hgb 9.5 L (13.0-17.5) gm/dL Hct 31.0 L (39.0-53.0) % MCHC 30.8 L (31.0-37.0) g/dL Lymphocytes # 0.7 L (1.0-4.8) k/uL Chloride 91 L (98-107) mmol/L Carbon Dioxide 38 H (22-30) mmol/L Calcium 8.1 L (8.4-10.2) mg/dL Microbiology - Last 24 Hours (Table) 03/15/24 15:57 Gram Stain - Final Sputum Sputum Culture - Final Assessment and Plan (1) Pneumonia Current Visit: Yes Status: Acute Code(s): J18.9 - PNEUMONIA, UNSPECIFIED ORGANISM SNOMED Code(s): 758824301 Plan: 1patient presented to hospital with increasing shortness of breath which is likely multifactorial patient initial workup was suggestive of mostly bilateral pulmonary subtle congestion effusion in this patient who did have normal white count not febrile which is all suggestive of possible CHF exacerbation now with worsening of his respiratory status requiring intubation and admission to the ICU possible component of pneumonia 2-patient did have resolution of his fever white count is normal, the patient blood and sputum culture has been negative chest x-ray this morning with multifocal airspace disease 3patient is currently covered with Zosyn plan is for oral antibiotics on discharge Dictation was produced using [employer] dictation software. please excuse any grammatical, word or spelling errors. Time with Patient: Less than 30
--- NOTE | 2024-03-19 13:18 | P.PN ---
Subjective Progress Note Date: 03/19/24 Principal diagnosis: Acute hypoxic and hypercapnic respiratory failure secondary to acute congestive heart failure, possible underlying pneumonia, could be aspiration pneumonia or community-acquired pneumonia This is a 78-year-old male patient with a known history of atrial fibrillation anticoagulated with Eliquis, hypertension, hyperlipidemia, BPH and recent femur fracture. He was brought in here early this morning after having complaints of increasing shortness of breath. Upon arrival by EMS they found him to have an O2 saturation of 60% and initially had refused treatment. They were called back a couple hours later and the patient was brought into the emergency room about 6:00 this morning. Chest x-ray revealed bilateral pulmonary edema with small pleural effusions consistent with congestive heart failure. CT angiogram ruled out central pulmonary embolism. There is large bilateral pleural effusions with diffuse airspace disease possible pneumonia versus pulmonary edema. White count 6.0. Hemoglobin 10.3. Platelets 307. D-dimer 1.47. INR 1.0. Sodium 139. Potassium 4.5. Bicarb 33. BUN 28. Creatinine 0.90. Glucose 110. proBNP 2540. Viral screen was negative. Troponin negative x 1. Arterial blood gases on 100% FiO2 revealed a PaO2 of 171. pCO2 85. pH 7.22. He is placed on BiPAP currently 14/6 and 50% FiO2. He is afebrile. Bradycardic in the 50s. Blood pressure stable. Mean arterial pressure in the 70s. He is seen today in consu ltation in the emergency department. He is awake and alert. He is asking to go home. He is continued on BiPAP. He was initiated on ceftriaxone. Continued on Bumex. Anticoagulated with Eliquis. Seen today on 03/16/2024, remains in the ICU, remains intubated and mechanically ventilated. He is on assist-control rate of 16 tidal volume 500 FiO2 40% PEEP of 8 patient was on propofol at 30 mcg/kg/min also on norepinephrine at 0. 03 mcg/kg/min, remains empirically on Zosyn, still receiving Lasix every 8 hours 40 mg. Remains on Eliquis. Patient seems to have pinpoint pupils however after pr opofol was discontinued, patient woke up, and his pupils were noted to be normal. Hence no need for CT of the brain at this point. Patient seems to be appropriate after he was taken off propofol, hence I recommended a trial of pressure support and CPAP, patient was placed on pressure support of 10, CPAP, and FiO2 at 50%, this was done for about an hour, follow-up ABG on 40% FiO2 and pressure support showed a pO2 of 74 pCO2 60 pH of 7.42 and the patient was again appropriate, recommended extubation. He was placed on BiPAP 14/6/50% which will be titrated down to 40%. Patient had blood cultures negative so far, sputum cultures were sent today. WBC count is 5.7 hemoglobin 9.3, Basic metabolic profile is normal BUN is 30 creatinine 1.28 chest x-ray continues show bilateral airspace disease mostly involving upper lobes. Seen today on 02/26/2024, patient was extubated yesterday, tolerated the extubation well, overnight he was kept on BiPAP 16/6/50% patient remains on Lasix 40 mg IV push every 8 hours remains on Zosyn and Eliquis, clinically the patient is feeling much better breathing a lot easier, I was able to titrate him down to 2 L nasal cannula and he seems to be doing well. Neurologically patient is weak but seems to be very appropriate. WBC count is 3.8 hemoglobin is 9.3el ectrolytes are normal BUN is 26 creatinine down to 1.21 blood cultures and sputum cultures remain negative so far. Chest x-ray continues to show diffuse bilateral airspace disease with small pleural effusions Patient was seen today , patient is still in ICU, he is on 6 L nasal cannula, O2 saturation is in the high 90s. Intermittently or at night on BiPAP 16/6/50%. Remains on Lasix 40 mg IV push twice daily remains on Zosyn remains on Eliquis chest x-ray is showing slight improvement but clinically the patient is significantly improved. WBC count is 4 hemoglobin 9.6 electrolytes are normal renal profile is normal creatinine is down to 1.07 today from 1.35 few days ago patient remains in negative fluid balance since admission and continues to improve with diuretics. Reevaluate today on 03/19/2024, patient remains in the ICU, significant clinical improvement noted, slight improvement noted on chest x-ray but the clinical improvement is much better than the radiographic improvement noted. Patient is now 3 L nasal cannula, does not seem to be in any distress, at night he was placed on BiPAP 16/6/50%, patient remains on Lasix at 40 mg IV push twice daily he is also on Zosyn although his procalcitonin level is 0.10 remains on Eliquis. His chest x-ray findings remain worrisome in spite of his significant clinical improvement. Hence I am keeping him on antibiotics and I am keeping him on diuretics. CBC today is normal electrolytes are normal bicarb is 38 BUN is 17 creatinine improving down to 1.03 Objective - Vital Signs Vital signs: Vital Signs Temp 97.4 F L 03/19/24 12:00 Pulse 54 L 03/19/24 12:00 Resp 24 03/19/24 12:00 BP 111/55 03/19/24 12:00 Pulse Ox 95 03/19/24 12:00 FiO2 50 03/19/24 04:00 Intake & Output 03/18/24 03/19/24 03/19/24 18:59 06:59 18:59 Intake Total 914 451 435 Output Total 1590 1170 535 Balance -676 -719 -100 Intake: IV 316 451 77 0.9 Sodium Chloride 180 240 40 Piperacillin-Tazobactam 3 100 175 25 .375 gm In Sodium Chloride 0.9% 100 ml @ 25 mls/hr IVPB Q8H [facility] Rx#: [id number] Pressure Bag (0.9 Sodium 36 36 12 Chloride) Oral 598 358 Output: Urine 1590 1170 535 Other: Voiding Method Indwelling Catheter Indwelling Catheter Indwelling Catheter # Bowel Movements 1 ABP, PAP, CO, CI - Last Documented Arterial Blood Pressure 122/42 - Exam GENERAL EXAM: 78-year-old white male, on 3 L nasal cannula HEAD: Normocephalic. EYES: Normal reaction of pupils, equal size. NOSE: Clear with pink turbinates. THROAT: No erythema or exudates. NECK: No masses, no JVD. CHEST: No chest wall deformity. LUNGS: Diminished breath sound bilaterally no crackles rhonchi or wheezes CVS: S1 and S2 normal with an audible murmur, regular rhythm. ABDOMEN: No hepatosplenomegaly, normal bowel sounds, no guarding or rigidity. SKIN: No rashes CENTRAL NERVOUS SYSTEM: Alert and oriented x 3 no gross focal deficit EXTREMITIES: 1+ bipedal edema no clubbing, no cyanosis. - Labs CBC & Chem 7: 03/19/24 04:04 03/19/24 04:04 Labs: Abnormal Lab Results - Last 24 Hours (Table) 03/19/24 03/19/24 Range/Units 04:04 04:04 RBC 3.57 L (4.30-5.90) m/uL Hgb 9.5 L (13.0-17.5) gm/dL Hct 31.0 L (39.0-53.0) % MCHC 30.8 L (31.0-37.0) g/dL Lymphocytes # 0.7 L (1.0-4.8) k/uL Chloride 91 L (98-107) mmol/L Carbon Dioxide 38 H (22-30) mmol/L Calcium 8.1 L (8.4-10.2) mg/dL Microbiology - Last 24 Hours (Table) 03/14/24 07:37 Blood Culture - Final Blood 03/15/24 15:57 Gram Stain - Final Sputum Sputum Culture - Final Assessment and Plan Assessment: Impression: Acute hypoxemic and hypercapnic respiratory failure secondary to an acute exacerbation of diastolic congestive heart failure and valvular heart disease,/aortic stenosis requiring intubation on 03/15/2024, extubated on 03/16/2024. History of atrial fibrillation, anticoagulated with Eliquis Recent femur fracture requiring hospitalization and subsequent placement at [facility] then discharged to home Benign prostatic hyperplasia Hypertension Hyperlipidemia history of aortic valve stenosis Plan: Will transfer the patient out of the ICU to a monitored bed and selective today. Continue diuretics Continue antibiotics GI and DVT prophylaxis Procalcitonin level was normal Continue Eliquis Continue BiPAP at night or as needed Continue to follow Time with Patient: Less than 30
--- NOTE | 2024-03-19 14:07 | P.PN ---
Subjective Progress Note Date: 03/19/24 Chevy French is a 78-year-old male patient who presented with complaints of shortness of breath per patient and family symptoms started about a week ago but significantly increased this morning and EMS was called patient was found to be satting 60% on room air patient denies any recent illness or chest pain. Patient has a past medical history of femur fracture in January 2024 with repair chest x-ray was completed showing correlation for CHF with bilateral pulmonary edema small pleural effusions CTA of the chest performed showing limited assessment for pulmonary embolism due to motion artifact and suboptimal enhancement large bilateral pleural effusion with diffuse airspace disease correlation for diffuse pneumonia or pulmonary edema. ABGs performed showing pH of 7.22, pCO2 of 85, pO2 of 171 and sodium bicarb 35. Patient was started on BiPAP in ER patient also started on IV antibiotics. Influenza RSV and COVID-19 negative. At this time patient will be admitted pulmonary services consulted 03/15. Patient seen and examined. Patient very lethargic, hard to arouse, WBC this morning is 5.9, hemoglobin 8.4, platelet count 312, sodium 142, potassium 4.9, BUN 23, creatinine 1.12. 03/16. Patient seen and examined. Patient was A teamed afternoon and had to be intubated. Blood work done showed WBC 5.7, hemoglobin 9.3, platelet count 366, sodium 141, potassium 3.9, BUN 30, creatinine 1.28,. Patient doing much better this morning, patient was extubated, currently on BiPAP 03/17. Patient seen and examined. Breathing is improving, states he feels much better. Able to maintain a conversation. 03/18. Patient seen and examined. States breathing is improved. Currently on 4 L of oxygen. 03/19. Patient seen and examined.Vital signs on this morning show temperature 97.4, heart rate 54, respiratory rate 24, blood pressure 111/55. Blood work done showed WBC 4.4, hemonine 0.5, platelet count 258. Breathing is improving. Patient is alert. Answering questions REVIEW OF SYSTEMS: Denies any chest pain. Denies any fever or chills. Denies any nausea or vomiting. PHYSICAL EXAMINATION: GENERAL: The patient is alert HEENT: Pupils are round and equally reacting to light. CARDIOVASCULAR: S1 and S2 present. No murmurs, rubs, or gallops. PULMONARY: Coarse breath sound bilaterally, no crackles audible ABDOMEN: Soft, nontender, nondistended, normoactive bowel sounds. No palpable organomegaly. MUSCULOSKELETAL: No joint swelling or deformity. EXTREMITIES: No cyanosis, clubbing, or pedal edema. NEUROLOGICAL: Alert SKIN: No rashes. Assessment and plan Acute hypercapnic respiratory failure requiring mechanical ventilation, currently extubated and on BiPAP Bacterial pneumonia Pulmonary edema Bilateral pleural effusion Acute combined systolic and diastolic CHF History of atrial fibrillation currently on Eliquis Hypertension hyperlipidemia History of left femur fracture with repair in January 2024 History of urinary retention follows with urology services outpatient Monitor vital signs Monitor CBC Monitor CMP Continue telemetry monitoring Continue oxygen supplementation CEncourage use of BiPAP as needed Follow-up on blood culture Follow-up on sputum culture Strict I's and O's, daily weights, continue IV Lasix 40 mg every 12 Continue amiodarone, Eliquis metoprolol Continue IV Zosyn Echo done showed LVEF of 60 to 65%, no obvious regional wall motion abnormalities, mildly increased septal wall thickness Cardiology following Pulmonology following Patient being transferred out of ICU Labs and medication were reviewed.. Continue same treatment. Continue with symptomatic treatment. Resume home medication. Monitor labs and vitals. DVT and GI prophylaxis. Further recommendations as per clinical course of the patient Dictation was produced using [employer] dictation software. please excuse any grammatical, word or spelling errors. Objective - Vital Signs Vital signs: Vital Signs Temp 97.4 F L 03/19/24 12:00 Pulse 54 L 03/19/24 12:00 Resp 24 03/19/24 12:00 BP 111/55 03/19/24 12:00 Pulse Ox 95 03/19/24 12:00 FiO2 50 03/19/24 04:00 Intake & Output 03/18/24 03/19/24 03/19/24 18:59 06:59 18:59 Intake Total 914 451 435 Output Total 1590 1170 535 Balance -676 -719 -100 Intake: IV 316 451 77 0.9 Sodium Chloride 180 240 40 Piperacillin-Tazobactam 3 100 175 25 .375 gm In Sodium Chloride 0.9% 100 ml @ 25 mls/hr IVPB Q8H [facility] Rx#: [id number] Pressure Bag (0.9 Sodium 36 36 12 Chloride) Oral 598 358 Output: Urine 1590 1170 535 Other: Voiding Method Indwelling Catheter Indwelling Catheter Indwelling Catheter # Bowel Movements 1 ABP, PAP, CO, CI - Last Documented Arterial Blood Pressure 122/42 - Labs CBC & Chem 7: 03/19/24 04:04 03/19/24 04:04 Labs: Abnormal Lab Results - Last 24 Hours (Table) 03/19/24 03/19/24 Range/Units 04:04 04:04 RBC 3.57 L (4.30-5.90) m/uL Hgb 9.5 L (13.0-17.5) gm/dL Hct 31.0 L (39.0-53.0) % MCHC 30.8 L (31.0-37.0) g/dL Lymphocytes # 0.7 L (1.0-4.8) k/uL Chloride 91 L (98-107) mmol/L Carbon Dioxide 38 H (22-30) mmol/L Calcium 8.1 L (8.4-10.2) mg/dL Microbiology - Last 24 Hours (Table) 03/14/24 07:37 Blood Culture - Final Blood 03/15/24 15:57 Gram Stain - Final Sputum Sputum Culture - Final
[2024-03-20 05:51] LABS: HCT 32.4 % (39.0-53.0); HGB 9.9 gm/dL (13.0-17.5); Hypochromasia Marked; MCH 26.8 pg (25.0-35.0); MCHC 30.7 g/dL (31.0-37.0); MCV 87.1 fL (80.0-100.0); Mean Platelet Volume 7.5; Platelet Count 240 k/uL (150-450); RBC 3.72 m/uL (4.30-5.90); WBC 4.6 k/uL (3.8-10.6)
[2024-03-20 06:05] LABS: ALT 12 U/L (4-49); AST 22 U/L (17-59); African American GFR (CKD) >90 (>60 ml/min/1.73 sqM); Albumin 2.9 g/dL (3.5-5.0); Alkaline Phosphatase 79 U/L (38-126); Anion Gap 5 mmol/L; Blood Urea Nitrogen 16 mg/dL (9-20); Calcium 8.4 mg/dL (8.4-10.2); Chloride 93 mmol/L (98-107); Glucose 88 mg/dL (74-99); Non-African American GFR(CKD) 80 (>60 ml/min/1.73 sqM); Potassium 3.9 mmol/L (3.5-5.1); Sodium 138 mmol/L (137-145); Total Bilirubin 0.3 mg/dL (0.2-1.3); Total Protein 6.2 g/dL (6.3-8.2)
[2024-03-20 06:13] LABS: Carbon Dioxide 40 mmol/L (22-30)
--- NOTE | 2024-03-20 08:15 | P.PN ---
Subjective Progress Note Date: 03/20/24 PROGRESS NOTE The patient is a 78-year-old male who presented with symptoms of progressive dyspnea and respiratory failure requiring mechanical ventilation. He is awake, denies any chest discomfort, dizziness or palpitations. He is in sinus mechanism and hemodynamically stable not requiring vasopressors. He has a history of paroxysmal atrial fibrillation. His echocardiogram showed an ejection fraction of 60 to 65%, with moderate to severe aortic stenosis. His urinary output has been stable, he continues to be on IV diuretics. He had no episodes of atrial fibrillation. Medications: Eliquis 5 mg twice a day, Lipitor 40 mg daily, Lasix 40 mg IV every 12 hours, Zosyn, spironolactone 25 mg daily. PHYSICAL EXAMINATION: Blood pressure 114/60 heart rate 60 LUNGS: Few crackles at the base HEART: Regular rate and rhythm, S1, S2. No S3. Systolic ejection murmur, /6 ABDOMEN: Soft, nontender, no organomegaly EXTREMETIES: No edema LAB: Hemoglobin 9.9, BUN 16, creatinine 0.93 IMPRESSION: 1. Respiratory failure with preserved systolic function, improving 2. Moderate aortic stenosis by echocardiography although suboptimal 3. Paroxysmal atrial fibrillation 4. Pneumonia 5. Hyperlipidemia PLAN: 1. Change to oral diuretics 2. Follow heart rate because of bradycardia, off amiodarone and beta-pa 3. Will require follow-up of his aortic stenosis once his status stabilized 4. Depending on his progress further recommendations will be made Objective - Vital Signs Vital signs: Vital Signs Temp 97.4 F L 03/19/24 12:00 Pulse 57 L 03/19/24 15:00 Resp 16 03/19/24 15:00 BP 114/57 03/19/24 15:00 Pulse Ox 98 03/19/24 15:00 FiO2 50 03/20/24 03:11 Intake & Output 03/19/24 03/20/24 03/20/24 18:59 06:59 18:59 Intake Total 905 450 Output Total 835 1200 Balance 70 -750 Intake: IV 189 0.9 Sodium Chloride 40 Piperacillin-Tazobactam 3 125 .375 gm In Sodium Chloride 0.9% 100 ml @ 25 mls/hr IVPB Q8H [facility] Rx#: [id number] Pressure Bag (0.9 Sodium 24 Chloride) Intake, IV Titration 100 Amount Piperacillin-Tazobactam 3 100 .375 gm In Sodium Chloride 0.9% 100 ml @ 25 mls/hr IVPB Q8H [facility] Rx#: [id number] Oral 716 350 Output: Urine 835 1200 Other: Voiding Method Indwelling Catheter Indwelling Catheter ABP, PAP, CO, CI - Last Documented Arterial Blood Pressure 122/42 - Labs CBC & Chem 7: 03/20/24 05:34 03/20/24 05:34 Labs: Abnormal Lab Results - Last 24 Hours (Table) 03/20/24 03/20/24 Range/Units 05:34 05:34 RBC 3.72 L (4.30-5.90) m/uL Hgb 9.9 L (13.0-17.5) gm/dL Hct 32.4 L (39.0-53.0) % MCHC 30.7 L (31.0-37.0) g/dL Chloride 93 L (98-107) mmol/L Carbon Dioxide 40 H (22-30) mmol/L Total Protein 6.2 L (6.3-8.2) g/dL Albumin 2.9 L (3.5-5.0) g/dL Microbiology - Last 24 Hours (Table) 03/14/24 07:37 Blood Culture - Final Blood
[2024-03-20] MEDS: FUROSEMIDE 40 MG TAB PO SCH (08:46)
--- NOTE | 2024-03-20 09:09 | PN ---
PROGRESS NOTE SUBJECTIVE: A 78-year-old gentleman with history of CVA, valvular heart disease, who is admitted to the hospital with pulmonary edema, had a negative study for pulmonary embolism. He is making slow, but steady recovery. MEDICATIONS: Currently on, 1. Eliquis 5 b.i.d. 2. Lasix 40 q.12. 3. Aldactone. PHYSICAL EXAMINATION: VITAL SIGNS: Heart rate is 53 beats per minute, blood pressure is 110/79, respiratory rate is 18, O2 sat is 96% on 4 L. NECK: There is no jugular venous distention. CHEST: Diminished air entry at the bases with rare rhonchi. HEART: First and second heart sounds. No gallop. EXTREMITIES: Do not reveal any edema. Peripheral pulses are felt. ASSESSMENT: 1. Acute respiratory failure. 2. Acute on chronic congestive heart failure. 3. Paroxysmal atrial fibrillation. PLAN: The patient will continue current medications. MMODL / IJN: [id number] /
--- NOTE | 2024-03-20 09:11 | PN ---
PROGRESS NOTE SUBJECTIVE: Chevy is a 78-year-old gentleman who is admitted to hospital with respiratory failure, has paroxysmal atrial fibrillation, moderate aortic stenosis and congestive heart failure. OBJECTIVE: GENERAL: This morning, he appears more alert and awake. VITAL SIGNS: Heart rate is 50 beats per minute. Blood pressure is 120/65, respiratory rate 16, O2 saturation is 97%. CHEST: Reveals occasional rhonchi and mild bilateral crackles. HEART: Reveals first and second heart sounds and ejection systolic murmur in the aortic area. ABDOMEN: Soft. EXTREMITIES: Reveals mild bilateral edema. LABORATORY STUDIES: A chest x-ray still shows changes of bilateral interstitial infiltrate. Lab show that the hemoglobin is 9.5, platelet count is 258, potassium is 3.8, creatinine is 1. ASSESSMENT AND PLAN: Respiratory failure from a combination of multiple problems including pneumonia, acute diastolic heart failure. The patient also has history of paroxysmal atrial fibrillation. The patient will continue the IV Lasix, Eliquis, Lipitor, and antibiotics. MMODL / IJN: [id number] /
--- NOTE | 2024-03-20 12:50 | P.PN ---
Subjective Progress Note Date: 03/20/24 This is a 78-year-old male patient with a known history of atrial fibrillation anticoagulated with Eliquis, hypertension, hyperlipidemia, BPH and recent femur fracture. He was brought in here early this morning after having complaints of increasing shortness of breath. Upon arrival by EMS they found him to have an O2 saturation of 60% and initially had refused treatment. They were called back a couple hours later and the patient was brought into the emergency room about 6:00 this morning. Chest x-ray revealed bilateral pulmonary edema with small pleural effusions consistent with congestive heart failure. CT angiogram ruled out central pulmonary embolism. There is large bilateral pleural effusions with diffuse airspace disease possible pneumonia versus pulmonary edema. White count 6.0. Hemoglobin 10.3. Platelets 307. D-dimer 1.47. INR 1.0. Sodium 139. Potassium 4.5. Bicarb 33. BUN 28. Creatinine 0.90. Glucose 110. proBNP 2540. Viral screen was negative. Troponin negative x 1. Arterial blood gases on 100% FiO2 revealed a PaO2 of 171. pCO2 85. pH 7.22. He is placed on BiPAP currently 14/6 and 50% FiO2. He is afebrile. Bradycardic in the 50s. Blood pressure stable. Mean arterial pressure in the 70s. He is seen today in consultation in the emergency department. He is awake and alert. He is asking to go home. He is continued on BiPAP. He was initiated on ceftriaxone. Continued on Bumex. Anticoagulated with Eliquis. The patient is seen today March 15, 2024 in follow-up on the selective care unit. He is currently sitting up in bed. Awake and alert in no acute distress. His family is at the bedside. He is breathing a bit better today compared to yesterday. He did remain on BiPAP 14/6 and 50% FiO2. He is currently on oxygen at 7 L high flow nasal cannula. O2 saturations in the 90s. He has been afebrile. Hemodynamically stable. Chest x-ray continues to show multiple bilateral patchy airspace opacities with slight improvement today compared to yesterday. White count 5.9. Hemoglobin 10.4. Platelets 313. Sodium 142. Potassium 4.9. Bicarb 39. BUN 26. Creatinine 1.12. Procalcitonin was negative at 0.10. Legionella screen was negative. Viral screen was negative. He is anticoagulated with Eliquis. He remains on IV diuretics. No accurate intake and output recorded. Seen today on 03/16/2024, remains in the ICU, remains intubated and mechanically ventilated. He is on assist-control rate of 16 tidal volume 500 FiO2 40% PEEP of 8 patient was on propofol at 30 mcg/kg/min also on norepinephrine at 0. 03 mcg/kg/min, remains empirically on Zosyn, still receiving Lasix every 8 hours 40 mg. Remains on Eliquis. Patient seems to have pinpoint pupils however after propofol was discontinued, patient woke up, and his pupils were noted to be normal. Hence no need for CT of the brain at this point. Patient seems to be appropriate after he was taken off propofol, hence I recommended a trial of pressure support and CPAP, patient was placed on pressure support of 10, CPAP, and FiO2 at 50%, this was done for about an hour, follow-up ABG on 40% FiO2 and pressure support showed a pO2 of 74 pCO2 60 pH of 7.42 and the patient was again appropriate, recommended extubation. He was placed on BiPAP 14/6/50% which will be titrated down to 40%. Patient had blood cultures negative so far, sputum cultures were sent today. WBC count is 5.7 hemoglobin 9.3, Basic metabolic profile is normal BUN is 30 creatinine 1.28 chest x-ray continues show bilateral airspace disease mostly involving upper lobes. Seen today on 02/26/2024, patient was extubated yesterday, tolerated the extubation well, overnight he was kept on BiPAP 16/6/50% patient remains on Lasix 40 mg IV push every 8 hours remains on Zosyn and Eliquis, clinically the patient is feeling much better breathing a lot easier, I was able to titrate him down to 2 L nasal cannula and he seems to be doing well. Neurologically patient is weak but seems to be very appropriate. WBC count is 3.8 hemoglobin is 9.3electrolytes are normal BUN is 26 creatinine down to 1.21 blood cultures and sputum cultures remain negative so far. Chest x-ray continues to show diffuse bilateral airspace disease with small pleural effusions Patient was seen today , patient is still in ICU, he is on 6 L nasal cannula, O2 saturation is in the high 90s. Intermittently or at night on BiPAP 16/6/50%. Remains on Lasix 40 mg IV push twice daily remains on Zosyn remains on Eliquis chest x-ray is showing slight improvement but clinically the patient is significantly improved. WBC count is 4 hemoglobin 9.6 electrolytes are normal renal profile is normal creatinine is down to 1.07 today from 1.35 few days ago patient remains in negative fluid balance since admission and continues to improve with diuretics. Reevaluate today on 03/19/2024, patient remains in the ICU, significant clinical improvement noted, slight improvement noted on chest x-ray but the clinical improvement is much better than the radiographic improvement noted. Patient is now 3 L nasal cannula, does not seem to be in any distress, at night he was placed on BiPAP 16/6/50%, patient remains on Lasix at 40 mg IV push twice daily he is also on Zosyn although his procalcitonin level is 0.10 remains on Eliquis. His chest x-ray findings remain worrisome in spite of his significant clinical improvement. Hence I am keeping him on antibiotics and I am keeping him on diuretics. CBC today is normal electrolytes are normal bicarb is 38 BUN is 17 creatinine improving down to 1.03 The patient is seen today March 20, 2024 in follow-up in the intensive care unit. He is currently sitting up in bed. Awake and alert in no acute distress. He is maintaining good O2 saturations in the 90s on 4 L/min per nasal cannula. He did wear BiPAP last night 16/6 and 50% FiO2. He has normal saline at KVO. He is continued on Zosyn. On oral diuretics. Anticoagulated with Eliquis. Blood and sputum cultures revealed no growth. White count 4.6. Hemoglobin 9.9. Platelets 240. Sodium 138. Potassium 3.9. Bicarb 40. BUN 16. Creatinine 0.93. His procalcitonin was negative at 0.10. Objective - Vital Signs Vital signs: Vital Signs Temp 97.4 F L 03/19/24 12:00 Pulse 55 L 03/20/24 08:42 Resp 18 03/20/24 08:42 BP 124/49 03/20/24 08:42 Pulse Ox 100 03/20/24 08:42 FiO2 50 03/20/24 03:11 Intake & Output 03/19/24 03/20/24 03/20/24 18:59 06:59 18:59 Intake Total 905 450 Output Total 835 1200 Balance 70 -750 Weight 96 kg Intake: IV 189 0.9 Sodium Chloride 40 Piperacillin-Tazobactam 3 125 .375 gm In Sodium Chloride 0.9% 100 ml @ 25 mls/hr IVPB Q8H [facility] Rx#: [id number] Pressure Bag (0.9 Sodium 24 Chloride) Intake, IV Titration 100 Amount Piperacillin-Tazobactam 3 100 .375 gm In Sodium Chloride 0.9% 100 ml @ 25 mls/hr IVPB Q8H [facility] Rx#: [id number] Oral 716 350 Output: Urine 835 1200 Other: Voiding Method Indwelling Catheter Indwelling Catheter Indwelling Catheter ABP, PAP, CO, CI - Last Documented Arterial Blood Pressure 122/42 - Exam GENERAL EXAM: Alert, 78-year-old male, sitting up in bed, on 4 L nasal cannula, in mild respiratory distress. HEAD: Normocephalic. EYES: Normal reaction of pupils, equal size. NOSE: Clear with pink turbinates. THROAT: No erythema or exudates. NECK: No masses, no JVD. CHEST: No chest wall deformity. LUNGS: Equal air entry with crackles in the bilateral bases, diminished. CVS: S1 and S2 normal with an audible murmur, regular rhythm. ABDOMEN: No hepatosplenomegaly, normal bowel sounds, no guarding or rigidity. SPINE: No scoliosis or deformity SKIN: No rashes CENTRAL NERVOUS SYSTEM: Residual left-sided weakness from previous CVA, tone is normal in all 4 extremities. EXTREMITIES: There is 2+ peripheral edema. Bruising over right knee. No clubbing, no cyanosis. Peripheral pulses are intact. - Labs CBC & Chem 7: 03/20/24 05:34 03/20/24 05:34 Labs: Abnormal Lab Results - Last 24 Hours (Table) 03/20/24 03/20/24 Range/Units 05:34 05:34 RBC 3.72 L (4.30-5.90) m/uL Hgb 9.9 L (13.0-17.5) gm/dL Hct 32.4 L (39.0-53.0) % MCHC 30.7 L (31.0-37.0) g/dL Chloride 93 L (98-107) mmol/L Carbon Dioxide 40 H (22-30) mmol/L Total Protein 6.2 L (6.3-8.2) g/dL Albumin 2.9 L (3.5-5.0) g/dL Microbiology - Last 24 Hours (Table) 03/14/24 07:37 Blood Culture - Final Blood Assessment and Plan Assessment: Acute hypoxemic and hypercapnic respiratory failure secondary to an acute exacerbation of diastolic congestive heart failure and valvular heart disease. He did require being intubated on 03/15/2024 and subsequently extubated the next day on 03/16/2024. He is currently on 4 L/min per nasal cannula. History of atrial fibrillation, anticoagulated with Eliquis Moderate aortic stenosis Recent admission here from December 15, 2023 through December 29, 2023 for acute kidney injury and other multiple medical issues Femur fracture requiring hospitalization and surgical repair November 27, 2023 and discharged to [facility] November 30, 2023 then discharged to home History of CVA with residual left-sided weakness Anemia of chronic disease Benign prostatic hyperplasia Hypertension Hyperlipidemia Former smoker Plan: The patient was seen and evaluated Labs and medications reviewed Stable and on 4 L nasal cannula Remains on oral diuretics Continue Eliquis Continue BiPAP support 14/6 and 35% FiO2 as needed Could be transferred to 3 S. today We will continue to follow I have personally seen and examined the patient, performed the documentation and the assessment and plan as written. Number of minutes spent on the visit: 10 Dictation was produced using [employer] dictation software. Please excuse any grammatical, word or spelling errors.
--- NOTE | 2024-03-20 13:35 | P.PN ---
Subjective Progress Note Date: 03/20/24 Chevy French is a 78-year-old male patient who presented with complaints of shortness of breath per patient and family symptoms started about a week ago but significantly increased this morning and EMS was called patient was found to be satting 60% on room air patient denies any recent illness or chest pain. Patient has a past medical history of femur fracture in January 2024 with repair chest x-ray was completed showing correlation for CHF with bilateral pulmonary edema small pleural effusions CTA of the chest performed showing limited assessment for pulmonary embolism due to motion artifact and suboptimal enhancement large bilateral pleural effusion with diffuse airspace disease correlation for diffuse pneumonia or pulmonary edema. ABGs performed showing pH of 7.22, pCO2 of 85, pO2 of 171 and sodium bicarb 35. Patient was started on BiPAP in ER patient also started on IV antibiotics. Influenza RSV and COVID-19 negative. At this time patient will be admitted pulmonary services consulted 03/15. Patient seen and examined. Patient very lethargic, hard to arouse, WBC this morning is 5.9, hemoglobin 8.4, platelet count 312, sodium 142, potassium 4.9, BUN 23, creatinine 1.12. 03/16. Patient seen and examined. Patient was A teamed afternoon and had to be intubated. Blood work done showed WBC 5.7, hemoglobin 9.3, platelet count 366, sodium 141, potassium 3.9, BUN 30, creatinine 1.28,. Patient doing much better this morning, patient was extubated, currently on BiPAP 03/17. Patient seen and examined. Breathing is improving, states he feels much better. Able to maintain a conversation. 03/18. Patient seen and examined. States breathing is improved. Currently on 4 L of oxygen. 03/19. Patient seen and examined.Vital signs on this morning show temperature 97.4, heart rate 54, respiratory rate 24, blood pressure 111/55. Blood work done showed WBC 4.4, hemonine 0.5, platelet count 258. Breathing is improving. Patient is alert. Answering questions 03/20. Patient seen and examined blood work done showed WBC 5.6, hemoglobin 9.9, sodium 130, potassium 3.9, BUN 16, creatinine 0.93. Patient switched to oral Lasix 41 twice a day, currently off amiodarone and pa because of bradycardia REVIEW OF SYSTEMS: Denies any chest pain. Denies any fever or chills. Denies any nausea or vomiting. PHYSICAL EXAMINATION: GENERAL: The patient is alert HEENT: Pupils are round and equally reacting to light. CARDIOVASCULAR: S1 and S2 present. No murmurs, rubs, or gallops. PULMONARY: Coarse breath sound bilaterally, no crackles audible ABDOMEN: Soft, nontender, nondistended, normoactive bowel sounds. No palpable organomegaly. MUSCULOSKELETAL: No joint swelling or deformity. EXTREMITIES: No cyanosis, clubbing, or pedal edema. NEUROLOGICAL: Alert SKIN: No rashes. Assessment and plan Acute hypercapnic respiratory failure requiring mechanical ventilation, currently extubated and on BiPAP Bacterial pneumonia Pulmonary edema Bilateral pleural effusion Acute combined systolic and diastolic CHF History of atrial fibrillation currently on Eliquis Hypertension hyperlipidemia History of left femur fracture with repair in January 2024 History of urinary retention follows with urology services outpatient Monitor vital signs Monitor CBC Monitor CMP Continue telemetry monitoring Continue oxygen supplementation CEncourage use of BiPAP as needed Follow-up on blood culture Follow-up on sputum culture Strict I's and O's, daily weights, switch to oral Lasix 40 mg twice a day Currently amiodarone and Lopressor on hold Continue IV Zosyn Echo done showed LVEF of 60 to 65%, no obvious regional wall motion abnormalities, mildly increased septal wall thickness Cardiology following Pulmonology following Patient being transferred out of ICU Labs and medication were reviewed.. Continue same treatment. Continue with symptomatic treatment. Resume home medication. Monitor labs and vitals. DVT and GI prophylaxis. Further recommendations as per clinical course of the patient Dictation was produced using [employer] dictation software. please excuse any grammatical, word or spelling errors. Objective - Vital Signs Vital signs: Vital Signs Temp 97.4 F L 03/19/24 12:00 Pulse 55 L 03/20/24 08:42 Resp 18 03/20/24 08:42 BP 124/49 03/20/24 08:42 Pulse Ox 100 03/20/24 08:42 FiO2 50 03/20/24 03:11 Intake & Output 03/19/24 03/20/24 03/20/24 18:59 06:59 18:59 Intake Total 905 450 Output Total 835 1200 Balance 70 -750 Intake: IV 189 0.9 Sodium Chloride 40 Piperacillin-Tazobactam 3 125 .375 gm In Sodium Chloride 0.9% 100 ml @ 25 mls/hr IVPB Q8H [facility] Rx#: [id number] Pressure Bag (0.9 Sodium 24 Chloride) Intake, IV Titration 100 Amount Piperacillin-Tazobactam 3 100 .375 gm In Sodium Chloride 0.9% 100 ml @ 25 mls/hr IVPB Q8H [facility] Rx#: [id number] Oral 716 350 Output: Urine 835 1200 Other: Voiding Method Indwelling Catheter Indwelling Catheter ABP, PAP, CO, CI - Last Documented Arterial Blood Pressure 122/42 - Labs CBC & Chem 7: 03/20/24 05:34 03/20/24 05:34 Labs: Abnormal Lab Results - Last 24 Hours (Table) 03/20/24 03/20/24 Range/Units 05:34 05:34 RBC 3.72 L (4.30-5.90) m/uL Hgb 9.9 L (13.0-17.5) gm/dL Hct 32.4 L (39.0-53.0) % MCHC 30.7 L (31.0-37.0) g/dL Chloride 93 L (98-107) mmol/L Carbon Dioxide 40 H (22-30) mmol/L Total Protein 6.2 L (6.3-8.2) g/dL Albumin 2.9 L (3.5-5.0) g/dL Microbiology - Last 24 Hours (Table) 03/14/24 07:37 Blood Culture - Final Blood
[2024-03-21 07:15] LABS: African American GFR (CKD) >90 (>60 ml/min/1.73 sqM); Blood Urea Nitrogen 14 mg/dL (9-20); Calcium 8.5 mg/dL (8.4-10.2); Chloride 91 mmol/L (98-107); Glucose 83 mg/dL (74-99); Non-African American GFR(CKD) 80 (>60 ml/min/1.73 sqM); Potassium 4.2 mmol/L (3.5-5.1); Sodium 138 mmol/L (137-145)
[2024-03-21 07:22] LABS: Anion Gap 4 mmol/L
[2024-03-21 07:25] LABS: Carbon Dioxide 43 mmol/L (22-30)
--- NOTE | 2024-03-21 07:47 | P.PN ---
Subjective Progress Note Date: 03/21/24 PROGRESS NOTE The patient is a 78-year-old male who presented with symptoms of progressive dyspnea and respiratory failure requiring mechanical ventilation. He is awake, denies any chest discomfort, dizziness or palpitations. He is in sinus mechanism and hemodynamically stable not requiring vasopressors. He has a history of paroxysmal atrial fibrillation. His echocardiogram showed an ejection fraction of 60 to 65%, with moderate to severe aortic stenosis. His urinary output has been stable, he continues to be on IV diuretics. He had no episodes of atrial fibrillation. March 21: The patient is feels better today, he feels stronger and is anxious to go home. He continues to be in sinus mechanism and he has no significant bradycardia arrhythmia. He denies any chest discomfort, dizziness or palpitations. He denies any nausea or vomiting. He had mild hematuria that is improving. He has not been out of bed yet. Medications: Eliquis 5 mg twice a day, Lipitor 40 mg daily, Lasix 40 mg p.o. every 12 hours, Zosyn, spironolactone 25 mg daily. PHYSICAL EXAMINATION: Blood pressure 107/60 heart rate 60 LUNGS: Few crackles at the base HEART: Regular rate and rhythm, S1, S2. No S3. Systolic ejection murmur, 3/6 ABDOMEN: Soft, nontender, no organomegaly EXTREMETIES: No edema LAB: Bicarb 43, BUN 14, creatinine 0.93. IMPRESSION: 1. Respiratory failure with preserved systolic function, improving 2. Moderate aortic stenosis by echocardiography although suboptimal 3. Paroxysmal atrial fibrillation, maintaining sinus mechanism 4. Pneumonia, improving 5. Hyperlipidemia PLAN: 1. Decrease oral diuretics 2. Increase physical activity 3. Follow renal function and CO2 4. Depending on his progress further recommendations will be made Objective - Vital Signs Vital signs: Vital Signs Temp 98.0 F 03/21/24 04:00 Pulse 54 L 03/21/24 04:00 Resp 19 03/21/24 04:00 BP 107/65 03/21/24 04:00 Pulse Ox 95 03/21/24 04:00 FiO2 50 03/20/24 03:11 Intake & Output 03/20/24 03/21/24 03/21/24 18:59 06:59 18:59 Intake Total 840 600 Output Total 1200 850 Balance -360 -250 Weight 96 kg Intake: Oral 840 600 Output: Urine 1200 850 Other: Voiding Method Indwelling Catheter Indwelling Catheter # Bowel Movements 1 ABP, PAP, CO, CI - Last Documented Arterial Blood Pressure 122/42 - Labs CBC & Chem 7: 03/20/24 05:34 03/21/24 06:13 Labs: Abnormal Lab Results - Last 24 Hours (Table) 03/21/24 Range/Units 06:13 Chloride 91 L (98-107) mmol/L Carbon Dioxide 43 H* (22-30) mmol/L
[2024-03-21 08:24] LABS: HCT 32.5 % (39.0-53.0); Hypochromasia Marked; MCH 26.9 pg (25.0-35.0); MCHC 30.9 g/dL (31.0-37.0); MCV 87.1 fL (80.0-100.0); Platelet Count 241 k/uL (150-450); RBC 3.73 m/uL (4.30-5.90); RDW 14.8 % (11.5-15.5); WBC 3.4 k/uL (3.8-10.6)
[2024-03-21] MEDS: FUROSEMIDE 40 MG TAB PO SCH (08:49)
--- NOTE | 2024-03-21 13:44 | P.PN ---
Subjective Progress Note Date: 03/21/24 This is a 78-year-old male patient with a known history of atrial fibrillation anticoagulated with Eliquis, hypertension, hyperlipidemia, BPH and recent femur fracture. He was brought in here early this morning after having complaints of increasing shortness of breath. Upon arrival by EMS they found him to have an O2 saturation of 60% and initially had refused treatment. They were called back a couple hours later and the patient was brought into the emergency room about 6:00 this morning. Chest x-ray revealed bilateral pulmonary edema with small pleural effusions consistent with congestive heart failure. CT angiogram ruled out central pulmonary embolism. There is large bilateral pleural effusions with diffuse airspace disease possible pneumonia versus pulmonary edema. White count 6.0. Hemoglobin 10.3. Platelets 307. D-dimer 1.47. INR 1.0. Sodium 139. Potassium 4.5. Bicarb 33. BUN 28. Creatinine 0.90. Glucose 110. proBNP 2540. Viral screen was negative. Troponin negative x 1. Arterial blood gases on 100% FiO2 revealed a PaO2 of 171. pCO2 85. pH 7.22. He is placed on BiPAP currently 14/6 and 50% FiO2. He is afebrile. Bradycardic in the 50s. Blood pressure stable. Mean arterial pressure in the 70s. He is seen today in consultation in the emergency department. He is awake and alert. He is asking to go home. He is continued on BiPAP. He was initiated on ceftriaxone. Continued on Bumex. Anticoagulated with Eliquis. The patient is seen today March 15, 2024 in follow-up on the selective care unit. He is currently sitting up in bed. Awake and alert in no acute distress. His family is at the bedside. He is breathing a bit better today compared to yesterday. He did remain on BiPAP 14/6 and 50% FiO2. He is currently on oxygen at 7 L high flow nasal cannula. O2 saturations in the 90s. He has been afebrile. Hemodynamically stable. Chest x-ray continues to show multiple bilateral patchy airspace opacities with slight improvement today compared to yesterday. White count 5.9. Hemoglobin 10.4. Platelets 313. Sodium 142. Potassium 4.9. Bicarb 39. BUN 26. Creatinine 1.12. Procalcitonin was negative at 0.10. Legionella screen was negative. Viral screen was negative. He is anticoagulated with Eliquis. He remains on IV diuretics. No accurate intake and output recorded. Seen today on 03/16/2024, remains in the ICU, remains intubated and mechanically ventilated. He is on assist-control rate of 16 tidal volume 500 FiO2 40% PEEP of 8 patient was on propofol at 30 mcg/kg/min also on norepinephrine at 0. 03 mcg/kg/min, remains empirically on Zosyn, still receiving Lasix every 8 hours 40 mg. Remains on Eliquis. Patient seems to have pinpoint pupils however after propofol was discontinued, patient woke up, and his pupils were noted to be normal. Hence no need for CT of the brain at this point. Patient seems to be appropriate after he was taken off propofol, hence I recommended a trial of pressure support and CPAP, patient was placed on pressure support of 10, CPAP, and FiO2 at 50%, this was done for about an hour, follow-up ABG on 40% FiO2 and pressure support showed a pO2 of 74 pCO2 60 pH of 7.42 and the patient was again appropriate, recommended extubation. He was placed on BiPAP 14/6/50% which will be titrated down to 40%. Patient had blood cultures negative so far, sputum cultures were sent today. WBC count is 5.7 hemoglobin 9.3, Basic metabolic profile is normal BUN is 30 creatinine 1.28 chest x-ray continues show bilateral airspace disease mostly involving upper lobes. Seen today on 02/26/2024, patient was extubated yesterday, tolerated the extubation well, overnight he was kept on BiPAP 16/6/50% patient remains on Lasix 40 mg IV push every 8 hours remains on Zosyn and Eliquis, clinically the patient is feeling much better breathing a lot easier, I was able to titrate him down to 2 L nasal cannula and he seems to be doing well. Neurologically patient is weak but seems to be very appropriate. WBC count is 3.8 hemoglobin is 9.3electrolytes are normal BUN is 26 creatinine down to 1.21 blood cultures and sputum cultures remain negative so far. Chest x-ray continues to show diffuse bilateral airspace disease with small pleural effusions Patient was seen today , patient is still in ICU, he is on 6 L nasal cannula, O2 saturation is in the high 90s. Intermittently or at night on BiPAP 16/6/50%. Remains on Lasix 40 mg IV push twice daily remains on Zosyn remains on Eliquis chest x-ray is showing slight improvement but clinically the patient is significantly improved. WBC count is 4 hemoglobin 9.6 electrolytes are normal renal profile is normal creatinine is down to 1.07 today from 1.35 few days ago patient remains in negative fluid balance since admission and continues to improve with diuretics. Reevaluate today on 03/19/2024, patient remains in the ICU, significant clinical improvement noted, slight improvement noted on chest x-ray but the clinical improvement is much better than the radiographic improvement noted. Patient is now 3 L nasal cannula, does not seem to be in any distress, at night he was placed on BiPAP 16/6/50%, patient remains on Lasix at 40 mg IV push twice daily he is also on Zosyn although his procalcitonin level is 0.10 remains on Eliquis. His chest x-ray findings remain worrisome in spite of his significant clinical improvement. Hence I am keeping him on antibiotics and I am keeping him on diuretics. CBC today is normal electrolytes are normal bicarb is 38 BUN is 17 creatinine improving down to 1.03 The patient is seen today March 20, 2024 in follow-up in the intensive care unit. He is currently sitting up in bed. Awake and alert in no acute distress. He is maintaining good O2 saturations in the 90s on 4 L/min per nasal cannula. He did wear BiPAP last night 16/6 and 50% FiO2. He has normal saline at KVO. He is continued on Zosyn. On oral diuretics. Anticoagulated with Eliquis. Blood and sputum cultures revealed no growth. White count 4.6. Hemoglobin 9.9. Platelets 240. Sodium 138. Potassium 3.9. Bicarb 40. BUN 16. Creatinine 0.93. His procalcitonin was negative at 0.10. The patient is seen today March 21, 2024 in follow-up in the intensive care unit. He is currently awake and alert in no acute distress. Sitting up in bed. On 2 L per minute per nasal cannula. No worsening shortness of breath, cough or congestion. Blood and sputum cultures revealed no growth. White count 3.4. Hemoglobin 10.0. Platelets 241. Sodium 138. Potassium 4.2. Bicarb 43. BUN 14. Creatinine 0.93. He remains anticoagulated with Eliquis. Continued on oral diuretics. Objective - Vital Signs Vital signs: Vital Signs Temp 97.9 F 03/21/24 11:56 Pulse 60 03/21/24 11:56 Resp 16 03/21/24 11:56 BP 106/45 03/21/24 11:56 Pulse Ox 95 03/21/24 11:56 FiO2 50 03/20/24 03:11 Intake & Output 03/20/24 03/21/24 03/21/24 18:59 06:59 18:59 Intake Total 840 600 Output Total 1200 850 Balance -360 -250 Weight 96 kg Intake: Oral 840 600 Output: Urine 1200 850 Other: Voiding Method Indwelling Catheter Indwelling Catheter Indwelling Catheter # Bowel Movements 1 ABP, PAP, CO, CI - Last Documented Arterial Blood Pressure 122/42 - Exam GENERAL EXAM: Alert, 78-year-old male, on 2 L nasal cannula, in no acute distress. HEAD: Normocephalic. EYES: Normal reaction of pupils, equal size. NOSE: Clear with pink turbinates. THROAT: No erythema or exudates. NECK: No masses, no JVD. CHEST: No chest wall deformity. LUNGS: Equal air entry with crackles in the bilateral bases, diminished. CVS: S1 and S2 normal with an audible murmur, regular rhythm. ABDOMEN: No hepatosplenomegaly, normal bowel sounds, no guarding or rigidity. SPINE: No scoliosis or deformity SKIN: No rashes CENTRAL NERVOUS SYSTEM: Residual left-sided weakness from previous CVA, tone is normal in all 4 extremities. EXTREMITIES: There is 2+ peripheral edema. Bruising over right knee. No clubbing, no cyanosis. Peripheral pulses are intact. - Labs CBC & Chem 7: 03/21/24 06:13 03/21/24 06:13 Labs: Abnormal Lab Results - Last 24 Hours (Table) 03/21/24 03/21/24 Range/Units 06:13 06:13 WBC 3.4 L (3.8-10.6) k/uL RBC 3.73 L (4.30-5.90) m/uL Hgb 10.0 L (13.0-17.5) gm/dL Hct 32.5 L (39.0-53.0) % MCHC 30.9 L (31.0-37.0) g/dL Chloride 91 L (98-107) mmol/L Carbon Dioxide 43 H* (22-30) mmol/L Assessment and Plan Assessment: Acute hypoxemic and hypercapnic respiratory failure secondary to an acute exacerbation of diastolic congestive heart failure and valvular heart disease. He did require being intubated on 03/15/2024 and subsequently extubated the next day on 03/16/2024. He is currently on 2 L/min per nasal cannula. History of atrial fibrillation, anticoagulated with Eliquis Moderate aortic stenosis Recent admission here from December 15, 2023 through December 29, 2023 for acute kidney injury and other multiple medical issues Femur fracture requiring hospitalization and surgical repair November 27, 2023 and discharged to [facility] November 30, 2023 then discharged to home History of CVA with residual left-sided weakness Anemia of chronic disease Benign prostatic hyperplasia Hypertension Hyperlipidemia Former smoker Plan: The patient was seen and evaluated Labs, chest x-ray and medications reviewed Stable and on 2 L nasal cannula Remains on oral diuretics Remains on Eliquis BiPAP support 14/ and 35% FiO2 as needed We will continue to follow I have personally seen and examined the patient, performed the documentation and the assessment and plan as written. Number of minutes spent on the visit: 10 Dictation was produced using [employer] dictation software. Please excuse any gram matical, word or spelling errors. This patient was seen in coordination with the pulmonary/critical care physician, Dr. Hall. He did spend greater than 50% of the time evaluating, examining and developing the plan of care. He agrees to the above HPI, physical exam, assessment and plan of care as dictated by the nurse practitioner.
--- NOTE | 2024-03-21 14:16 | P.PN ---
Subjective Progress Note Date: 03/21/24 Chevy French is a 78-year-old male patient who presented with complaints of shortness of breath per patient and family symptoms started about a week ago but significantly increased this morning and EMS was called patient was found to be satting 60% on room air patient denies any recent illness or chest pain. Patient has a past medical history of femur fracture in January 2024 with repair chest x-ray was completed showing correlation for CHF with bilateral pulmonary edema small pleural effusions CTA of the chest performed showing limited assessment for pulmonary embolism due to motion artifact and suboptimal enhancement large bilateral pleural effusion with diffuse airspace disease correlation for diffuse pneumonia or pulmonary edema. ABGs performed showing pH of 7.22, pCO2 of 85, pO2 of 171 and sodium bicarb 35. Patient was started on BiPAP in ER patient also started on IV antibiotics. Influenza RSV and COVID-19 negative. At this time patient will be admitted pulmonary services consulted 03/15. Patient seen and examined. Patient very lethargic, hard to arouse, WBC this morning is 5.9, hemoglobin 8.4, platelet count 312, sodium 142, potassium 4.9, BUN 23, creatinine 1.12. 03/16. Patient seen and examined. Patient was A teamed afternoon and had to be intubated. Blood work done showed WBC 5.7, hemoglobin 9.3, platelet count 366, sodium 141, potassium 3.9, BUN 30, creatinine 1.28,. Patient doing much better this morning, patient was extubated, currently on BiPAP 03/17. Patient seen and examined. Breathing is improving, states he feels much better. Able to maintain a conversation. 03/18. Patient seen and examined. States breathing is improved. Currently on 4 L of oxygen. 03/19. Patient seen and examined.Vital signs on this morning show temperature 97.4, heart rate 54, respiratory rate 24, blood pressure 111/55. Blood work done showed WBC 4.4, hemonine 0.5, platelet count 258. Breathing is improving. Patient is alert. Answering questions 03/20. Patient seen and examined blood work done showed WBC 5.6, hemoglobin 9.9, sodium 130, potassium 3.9, BUN 16, creatinine 0.93. Patient switched to oral Lasix 41 twice a day, currently off amiodarone and pa because of bradycardia 03/21. Patient seen and examined. Blood work this morning showed WBC 3.4, hemoglobin 10, platelet count 241, sodium 130 potassium 4.2, carbon hide 43, BUN 14, creatinine 0.93. Patient is answering question appropriately REVIEW OF SYSTEMS: Denies any chest pain. Denies any fever or chills. Denies any nausea or vomiting. PHYSICAL EXAMINATION: GENERAL: The patient is alert HEENT: Pupils are round and equally reacting to light. CARDIOVASCULAR: S1 and S2 present. No murmurs, rubs, or gallops. PULMONARY: Coarse breath sound bilaterally, no crackles audible ABDOMEN: Soft, nontender, nondistended, normoactive bowel sounds. No palpable organomegaly. MUSCULOSKELETAL: No joint swelling or deformity. EXTREMITIES: No cyanosis, clubbing, or pedal edema. NEUROLOGICAL: Alert SKIN: No rashes. Assessment and plan Acute hypercapnic respiratory failure requiring mechanical ventilation, currently extubated and on BiPAP Bacterial pneumonia Pulmonary edema Bilateral pleural effusion Acute combined systolic and diastolic CHF History of atrial fibrillation currently on Eliquis Hypertension hyperlipidemia History of left femur fracture with repair in January 2024 History of urinary retention follows with urology services outpatient Monitor vital signs Monitor CBC Monitor CMP Continue telemetry monitoring Continue oxygen supplementation CEncourage use of BiPAP as needed Follow-up on blood culture Follow-up on sputum culture Strict I's and O's, daily weights, Lasix 40 mg daily Currently amiodarone and Lopressor on hold Antibiotics discontinued Echo done showed LVEF of 60 to 65%, no obvious regional wall motion abnormalities, mildly increased septal wall thickness Cardiology following Pulmonology following Labs and medication were reviewed.. Continue same treatment. Continue with symptomatic treatment. Resume home medication. Monitor labs and vitals. DVT and GI prophylaxis. Further recommendations as per clinical course of the patient Dictation was produced using [employer] dictation software. please excuse any grammatical, word or spelling errors. Objective - Vital Signs Vital signs: Vital Signs Temp 97.9 F 03/21/24 11:56 Pulse 60 03/21/24 11:56 Resp 16 03/21/24 11:56 BP 106/45 03/21/24 11:56 Pulse Ox 95 03/21/24 11:56 FiO2 50 03/20/24 03:11 Intake & Output 03/20/24 03/21/24 03/21/24 18:59 06:59 18:59 Intake Total 840 600 Output Total 1200 850 Balance -360 -250 Weight 96 kg Intake: Oral 840 600 Output: Urine 1200 850 Other: Voiding Method Indwelling Catheter Indwelling Catheter Indwelling Catheter # Bowel Movements 1 ABP, PAP, CO, CI - Last Documented Arterial Blood Pressure 122/42 - Labs CBC & Chem 7: 03/21/24 06:13 03/21/24 06:13 Labs: Abnormal Lab Results - Last 24 Hours (Table) 03/21/24 03/21/24 Range/Units 06:13 06:13 WBC 3.4 L (3.8-10.6) k/uL RBC 3.73 L (4.30-5.90) m/uL Hgb 10.0 L (13.0-17.5) gm/dL Hct 32.5 L (39.0-53.0) % MCHC 30.9 L (31.0-37.0) g/dL Chloride 91 L (98-107) mmol/L Carbon Dioxide 43 H* (22-30) mmol/L
[2024-03-22 07:53] LABS: African American GFR (CKD) 84 (>60 ml/min/1.73 sqM); Blood Urea Nitrogen 13 mg/dL (9-20); Calcium 8.5 mg/dL (8.4-10.2); Chloride 92 mmol/L (98-107); Glucose 83 mg/dL (74-99); Non-African American GFR(CKD) 73 (>60 ml/min/1.73 sqM); Potassium 4.3 mmol/L (3.5-5.1); Sodium 136 mmol/L (137-145)
[2024-03-22 08:01] LABS: Anion Gap 6 mmol/L; Carbon Dioxide 38 mmol/L (22-30)
--- NOTE | 2024-03-22 11:40 | P.PN ---
Subjective Progress Note Date: 03/20/24 Principal diagnosis: Reason for follow-up is pneumonia Patient is a 78-year-old male with a past medical history significant for hypertension hyperlipidemia BPH atrial fibrillation presenting to the hospital for evaluation of increasing shortness of breath with initial concern for possible CHF did have worsening of his respiratory status also become unresponsive requiring intubation and transferred to ICU ID consulted for possible pneumonia. On today's evaluation that is 03/20/2024, patient has been afebrile, patient is breathing comfortably and is currently on 4 L nasal cannula oxygen, patient denies having any worsening cough no chest pain, patient denies nausea vomiting or diarrhea and no abdominal pain Patient white count is 4.6 creatinine 0.93 Objective - Vital Signs Vital signs: Vital Signs Temp 97.4 F L 03/19/24 12:00 Pulse 55 L 03/20/24 12:42 Resp 18 03/20/24 12:42 BP 103/48 03/20/24 12:42 Pulse Ox 97 03/20/24 12:42 FiO2 50 03/20/24 03:11 Intake & Output 03/19/24 03/20/24 03/20/24 18:59 06:59 18:59 Intake Total 905 450 Output Total 835 1200 Balance 70 -750 Weight 96 kg Intake: IV 189 0.9 Sodium Chloride 40 Piperacillin-Tazobactam 3 125 .375 gm In Sodium Chloride 0.9% 100 ml @ 25 mls/hr IVPB Q8H [facility] Rx#: [id number] Pressure Bag (0.9 Sodium 24 Chloride) Intake, IV Titration 100 Amount Piperacillin-Tazobactam 3 100 .375 gm In Sodium Chloride 0.9% 100 ml @ 25 mls/hr IVPB Q8H [facility] Rx#: [id number] Oral 716 350 Output: Urine 835 1200 Other: Voiding Method Indwelling Catheter Indwelling Catheter Indwelling Catheter ABP, PAP, CO, CI - Last Documented Arterial Blood Pressure 122/42 - Exam GENERAL DESCRIPTION: An elderly male lying in bed in no distress RESPIRATORY SYSTEM: Unlabored breathing , coarse breath sounds bilaterally HEART: S1 S2 regular rate and rhythm , ABDOMEN: Soft , no tenderness EXTREMITIES: No edema feet - Labs CBC & Chem 7: 03/21/24 06:13 03/22/24 06:51 Labs: Abnormal Lab Results - Last 24 Hours (Table) 03/20/24 03/20/24 Range/Units 05:34 05:34 RBC 3.72 L (4.30-5.90) m/uL Hgb 9.9 L (13.0-17.5) gm/dL Hct 32.4 L (39.0-53.0) % MCHC 30.7 L (31.0-37.0) g/dL Chloride 93 L (98-107) mmol/L Carbon Dioxide 40 H (22-30) mmol/L Total Protein 6.2 L (6.3-8.2) g/dL Albumin 2.9 L (3.5-5.0) g/dL Microbiology - Last 24 Hours (Table) 03/14/24 07:37 Blood Culture - Final Blood Assessment and Plan (1) Pneumonia Current Visit: Yes Status: Acute Code(s): J18.9 - PNEUMONIA, UNSPECIFIED ORGANISM SNOMED Code(s): 981243037 Plan: 1patient presented to hospital with increasing shortness of breath which is likely multifactorial patient initial workup was suggestive of mostly bilateral pulmonary subtle congestion effusion in this patient who did have normal white count not febrile which is all suggestive of possible CHF exacerbation now with worsening of his respiratory status requiring intubation and admission to the ICU possible component of pneumonia 2-patient did have resolution of his fever white count is normal, the patient blood and sputum culture has been negative chest x-ray this morning with multifocal airspace disease 3patient Zosyn has been discussed by pulmonary will monitor closely off antibiotics Dictation was produced using [employer] dictation software. please excuse any grammatical, word or spelling errors. Time with Patient: Less than 30
--- NOTE | 2024-03-22 11:41 | P.PN ---
Subjective Progress Note Date: 03/21/24 Principal diagnosis: Reason for follow-up is pneumonia Patient is a 78-year-old male with a past medical history significant for hypertension hyperlipidemia BPH atrial fibrillation presenting to the hospital for evaluation of increasing shortness of breath with initial concern for possible CHF did have worsening of his respiratory status also become unresponsive requiring intubation and transferred to ICU ID consulted for possible pneumonia. On today's evaluation that is 03/21/2024, Patient is afebrile this morning patient denies having any chest pain shortness of breath and cough is decreased intensity mostly dry in nature , the patient is currently on 3 L current oxygen, patient denies any abdominal pain no diarrhea no nausea no vomiting Patient white count is 3.4, creatinine 0.93 Objective - Vital Signs Vital signs: Vital Signs Temp 97.9 F 03/21/24 11:56 Pulse 60 03/21/24 11:56 Resp 16 03/21/24 11:56 BP 106/45 03/21/24 11:56 Pulse Ox 95 03/21/24 11:56 FiO2 50 03/20/24 03:11 Intake & Output 03/20/24 03/21/24 03/21/24 18:59 06:59 18:59 Intake Total 840 600 180 Output Total 1200 850 300 Balance -360 -250 -120 Weight 96 kg Intake: Oral 840 600 180 Output: Urine 1200 850 300 Other: Voiding Method Indwelling Catheter Indwelling Catheter Indwelling Catheter # Bowel Movements 1 ABP, PAP, CO, CI - Last Documented Arterial Blood Pressure 122/42 - Exam GENERAL DESCRIPTION: An elderly male lying in bed in no distress RESPIRATORY SYSTEM: Unlabored breathing , coarse breath sounds bilaterally HEART: S1 S2 regular rate and rhythm , ABDOMEN: Soft , no tenderness EXTREMITIES: No edema feet - Labs CBC & Chem 7: 03/21/24 06:13 03/22/24 06:51 Labs: Abnormal Lab Results - Last 24 Hours (Table) 03/21/24 03/21/24 Range/Units 06:13 06:13 WBC 3.4 L (3.8-10.6) k/uL RBC 3.73 L (4.30-5.90) m/uL Hgb 10.0 L (13.0-17.5) gm/dL Hct 32.5 L (39.0-53.0) % MCHC 30.9 L (31.0-37.0) g/dL Chloride 91 L (98-107) mmol/L Carbon Dioxide 43 H* (22-30) mmol/L Assessment and Plan (1) Pneumonia Current Visit: Yes Status: Acute Code(s): J18.9 - PNEUMONIA, UNSPECIFIED ORGANISM SNOMED Code(s): 597174729 Plan: 1patient presented to hospital with increasing shortness of breath which is likely multifactorial patient initial workup was suggestive of mostly bilateral pulmonary subtle congestion effusion in this patient who did have normal white count not febrile which is all suggestive of possible CHF exacerbation now with worsening of his respiratory status requiring intubation and admission to the ICU possible component of pneumonia 2-patient did have resolution of his fever white count is normal, the patient blood and sputum culture has been negative chest x-ray this morning with multifocal airspace disease 3patient has received a course of Zosyn which has been subsequent discontinued currently being monitored closely off antibiotic Dictation was produced using [employer] dictation software. please excuse any grammatical, word or spelling errors. Time with Patient: Less than 30
--- NOTE | 2024-03-22 13:28 | P.PN ---
Subjective Progress Note Date: 03/22/24 Principal diagnosis: Heart failure. This is a 78-year-old male patient with a known history of atrial fibrillation anticoagulated with Eliquis, hypertension, hyperlipidemia, BPH and recent femur fracture. He was brought in here early this morning after having complaints of increasing shortness of breath. Upon arrival by EMS they found him to have an O2 saturation of 60% and initially had refused treatment. They were called back a couple hours later and the patient was brought into the emergency room about 6:00 this morning. Chest x-ray revealed bilateral pulmonary edema with small pleural effusions consistent with congestive heart failure. CT angiogram ruled out central pulmonary embolism. There is large bilateral pleural effusions with diffuse airspace disease possible pneumonia versus pulmonary edema. White count 6.0. Hemoglobin 10.3. Platelets 307. D-dimer 1.47. INR 1.0. Sodium 139. Potassium 4.5. Bicarb 33. BUN 28. Creatinine 0.90. Glucose 110. proBNP 2540. Viral screen was negative. Troponin negative x 1. Arterial blood gases on 100% FiO2 revealed a PaO2 of 171. pCO2 85. pH 7.22. He is placed on BiPAP currently 14/6 and 50% FiO2. He is afebrile. Bradycardic in the 50s. Blood pressure stable. Mean arterial pressure in the 70s. He is seen today in consultation in the emergency department. He is awake and alert. He is asking to go home. He is continued on BiPAP. He was initiated on ceftriaxone. Continued on Bumex. Anticoagulated with Eliquis. The patient is seen today March 15, 2024 in follow-up on the selective care unit. He is currently sitting up in bed. Awake and alert in no acute distress. His family is at the bedside. He is breathing a bit better today compared to yesterday. He did remain on BiPAP 14/6 and 50% FiO2. He is currently on oxygen at 7 L high flow nasal cannula. O2 saturations in the 90s. He has been afebrile. Hemodynamically stable. Chest x-ray continues to show multiple bilateral patchy airspace opacities with slight improvement today compared to yesterday. White count 5.9. Hemoglobin 10.4. Platelets 313. Sodium 142. Potassium 4.9. Bicarb 39. BUN 26. Creatinine 1.12. Procalcitonin was negative at 0.10. Legionella screen was negative. Viral screen was negative. He is anticoagulated with Eliquis. He remains on IV diuretics. No accurate intake and output recorded. Seen today on 03/16/2024, remains in the ICU, remains intubated and mechanically ventilated. He is on assist-control rate of 16 tidal volume 500 FiO2 40% PEEP of 8 patient was on propofol at 30 mcg/kg/min also on norepinephrine at 0. 03 mcg/kg/min, remains empirically on Zosyn, still receiving Lasix every 8 hours 40 mg. Remains on Eliquis. Patient seems to have pinpoint pupils however after propofol was discontinued, patient woke up, and his pupils were noted to be normal. Hence no need for CT of the brain at this point. Patient seems to be appropriate after he was taken off propofol, hence I recommended a trial of pressure support and CPAP, patient was placed on pressure support of 10, CPAP, and FiO2 at 50%, this was done for about an hour, follow-up ABG on 40% FiO2 and pressure support showed a pO2 of 74 pCO2 60 pH of 7.42 and the patient was again appropriate, recommended extubation. He was placed on BiPAP 14/6/50% which will be titrated down to 40%. Patient had blood cultures negative so far, sputum cultures were sent today. WBC count is 5.7 hemoglobin 9.3, Basic metabolic profile is normal BUN is 30 creatinine 1.28 chest x-ray continues show bilateral airspace disease mostly involving upper lobes. Seen today on 02/26/2024, patient was extubated yesterday, tolerated the extubation well, overnight he was kept on BiPAP 16/6/50% patient remains on Lasix 40 mg IV push every 8 hours remains on Zosyn and Eliquis, clinically the patient is feeling much better breathing a lot easier, I was able to titrate him down to 2 L nasal cannula and he seems to be doing well. Neurologically patient is weak but seems to be very appropriate. WBC count is 3.8 hemoglobin is 9.3electrolytes are normal BUN is 26 creatinine down to 1.21 blood cultures and sputum cultures remain negative so far. Chest x-ray continues to show diffuse bilateral airspace disease with small pleural effusions Patient was seen today on, patient is still in ICU, he is on 6 L nasal cannula, O2 saturation is in the high 90s. Intermittently or at night on BiPAP 16/6/50%. Remains on Lasix 40 mg IV push twice daily remains on Zosyn remains on Eliquis chest x-ray is showing slight improvement but clinically the patient is significantly improved. WBC count is 4 hemoglobin 9.6 electrolytes are normal renal profile is normal creatinine is down to 1.07 today from 1.35 few days ago patient remains in negative fluid balance since admission and continues to improve with diuretics. Reevaluate today on 03/19/2024, patient remains in the ICU, significant clinical improvement noted, slight improvement noted on chest x-ray but the clinical improvement is much better than the radiographic improvement noted. Patient is now 3 L nasal cannula, does not seem to be in any distress, at night he was placed on BiPAP 16/6/50%, patient remains on Lasix at 40 mg IV push twice daily he is also on Zosyn although his procalcitonin level is 0.10 remains on Eliquis. His chest x-ray findings remain worrisome in spite of his significant clinical improvement. Hence I am keeping him on antibiotics and I am keeping him on diuretics. CBC today is normal electrolytes are normal bicarb is 38 BUN is 17 creatinine improving down to 1.03 The patient is seen today March 20, 2024 in follow-up in the intensive care unit. He is currently sitting up in bed. Awake and alert in no acute distress. He is maintaining good O2 saturations in the 90s on 4 L/min per nasal cannula. He did wear BiPAP last night 16/6 and 50% FiO2. He has normal saline at KVO. He is continued on Zosyn. On oral diuretics. Anticoagulated with Eliquis. Blood and sputum cultures revealed no growth. White count 4.6. Hemoglobin 9.9. Platelets 240. Sodium 138. Potassium 3.9. Bicarb 40. BUN 16. Creatinine 0.93. His procalcitonin was negative at 0.10. The patient is seen today March 21, 2024 in follow-up in the intensive care unit. He is currently awake and alert in no acute distress. Sitting up in bed. On 2 L per minute per nasal cannula. No worsening shortness of breath, cough or congestion. Blood and sputum cultures revealed no growth. White count 3.4. Hemoglobin 10.0. Platelets 241. Sodium 138. Potassium 4.2. Bicarb 43. BUN 14. Creatinine 0.93. He remains anticoagulated with Eliquis. Continued on oral diuretics. Progress note dated March 22, 2024. 78-year-old male seen today in room 357. The patient is on 3 L of oxygen. No IV fluids. The patient's daughter is in the room. She has a number of questions and we try to answer all of them for her. The patient is doing b amanda, and would like to get out of bed, and maybe even walk around the room. All he has to do is call for the nurses. Current labs include a sodium 136, potassium 4.3, chlorides 92, CO2 38, BUN 13, creatinine 1. Glucose is 83. Objective - Vital Signs Vital signs: Vital Signs Temp 98.2 F 03/22/24 08:15 Pulse 59 L 03/22/24 12:00 Resp 18 03/22/24 12:00 BP 113/64 03/22/24 12:00 Pulse Ox 95 03/22/24 12:00 FiO2 50 03/20/24 03:11 Intake & Output 03/21/24 03/22/24 03/22/24 18:59 06:59 18:59 Intake Total 180 Output Total 300 1750 900 Balance -120 -1750 -900 Weight 91 kg Intake: Oral 180 Output: Urine 300 1750 900 Other: Voiding Method Indwelling Catheter Indwelling Catheter Indwelling Catheter # Bowel Movements 1 ABP, PAP, CO, CI - Last Documented Arterial Blood Pressure 122/42 - Exam No acute distress, oriented 3. Currently on 3 L. HEENT examination is grossly unremarkable. Mucous membranes are moist. No oral lesions. Neck supple. Full range of motion. No adenopathy thyromegaly or neck vein distention. Cardiovascular examination reveals regular rhythm rate. S1-S2 normal. No S3 or S4. Harsh murmur of aortic stenosis noted. Lungs reveal minimal bibasilar crackles. No wheezes or rhonchi. Breath sounds equal. Abdomen soft bowel sounds are heard. No masses or tenderness. Extremities are intact. No cyanosis clubbing or edema. Skin is without rash or lesion. Neurologic examination is brief but nonfocal. - Labs CBC & Chem 7: 03/21/24 06:13 03/22/24 06:51 Labs: Abnormal Lab Results - Last 24 Hours (Table) 03/22/24 Range/Units 06:51 Sodium 136 L (137-145) mmol/L Chloride 92 L (98-107) mmol/L Carbon Dioxide 38 H (22-30) mmol/L Assessment and Plan Assessment: Acute hypoxemic and hypercapnic respiratory failure secondary to an acute exacerbation of diastolic congestive heart failure and valvular heart disease. He did require being intubated on 03/15/2024 and subsequently extubated the next day on 03/16/2024. History of atrial fibrillation. Moderate aortic stenosis. Recent admission here from December 15, 2023 through December 29, 2023 for acute kidney injury. Femur fracture requiring hospitalization and surgical repair November 27, 2023 and discharged to [facility] November 30, 2023. History of CVA with residual left-sided weakness. Anemia of chronic disease. Benign prostatic hyperplasia. Hypertension. Hyperlipidemia. Former smoker. Plan: Plan dated March 22, 2024. The patient is doing relatively well. He is resting comfortably in bed. He continues on 3 L. His daughter is in the room. He is not receiving any IV fluids. Labs, x-rays, medications are reviewed. We will continue to follow the patient, make recommendations along the way. The patient's heart failure, in part, is related to his moderately severe aortic stenosis. The patient would like to get out of bed and sit in the chair, and/or walk around. All he has to do is asked for the nurses. Time with Patient: Less than 30
--- NOTE | 2024-03-22 13:54 | P.PN ---
Subjective Progress Note Date: 03/22/24 Chevy French is a 78-year-old male patient who presented with complaints of shortness of breath per patient and family symptoms started about a week ago but significantly increased this morning and EMS was called patient was found to be satting 60% on room air patient denies any recent illness or chest pain. Patient has a past medical history of femur fracture in January 2024 with repair chest x-ray was completed showing correlation for CHF with bilateral pulmonary edema small pleural effusions CTA of the chest performed showing limited assessment for pulmonary embolism due to motion artifact and suboptimal enhancement large bilateral pleural effusion with diffuse airspace disease correlation for diffuse pneumonia or pulmonary edema. ABGs performed showing pH of 7.22, pCO2 of 85, pO2 of 171 and sodium bicarb 35. Patient was started on BiPAP in ER patient also started on IV antibiotics. Influenza RSV and COVID-19 negative. At this time patient will be admitted pulmonary services consulted 03/15. Patient seen and examined. Patient very lethargic, hard to arouse, WBC this morning is 5.9, hemoglobin 8.4, platelet count 312, sodium 142, potassium 4.9, BUN 23, creatinine 1.12. 03/16. Patient seen and examined. Patient was A teamed afternoon and had to be intubated. Blood work done showed WBC 5.7, hemoglobin 9.3, platelet count 366, sodium 141, potassium 3.9, BUN 30, creatinine 1.28,. Patient doing much better this morning, patient was extubated, currently on BiPAP 03/17. Patient seen and examined. Breathing is improving, states he feels much better. Able to maintain a conversation. 03/18. Patient seen and examined. States breathing is improved. Currently on 4 L of oxygen. 03/19. Patient seen and examined.Vital signs on this morning show temperature 97.4, heart rate 54, respiratory rate 24, blood pressure 111/55. Blood work done showed WBC 4.4, hemonine 0.5, platelet count 258. Breathing is improving. Patient is alert. Answering questions 03/20. Patient seen and examined blood work done showed WBC 5.6, hemoglobin 9.9, sodium 130, potassium 3.9, BUN 16, creatinine 0.93. Patient switched to oral Lasix 41 twice a day, currently off amiodarone and pa because of bradycardia 03/21. Patient seen and examined. Blood work this morning showed WBC 3.4, hemoglobin 10, platelet count 241, sodium 130 potassium 4.2, carbon hide 43, BUN 14, creatinine 0.93. Patient is answering question appropriately 03/22/2024. Patient seen and examined. Currently on 2 L of oxygen. Patient was brushing his teeth when I walked in the room. Family thinks patient has improved a lot. REVIEW OF SYSTEMS: Denies any chest pain. Denies any fever or chills. Denies any nausea or vomiting. PHYSICAL EXAMINATION: GENERAL: The patient is alert HEENT: Pupils are round and equally reacting to light. CARDIOVASCULAR: S1 and S2 present. No murmurs, rubs, or gallops. PULMONARY: Coarse breath sound bilaterally, no crackles audible ABDOMEN: Soft, nontender, nondistended, normoactive bowel sounds. No palpable organomegaly. MUSCULOSKELETAL: No joint swelling or deformity. EXTREMITIES: No cyanosis, clubbing, or pedal edema. NEUROLOGICAL: Alert SKIN: No rashes. Assessment and plan Acute hypercapnic respiratory failure requiring mechanical ventilation, currently extubated and on BiPAP Bacterial pneumonia Pulmonary edema Bilateral pleural effusion Acute combined systolic and diastolic CHF History of atrial fibrillation currently on Eliquis Hypertension hyperlipidemia History of left femur fracture with repair in January 2024 History of urinary retention follows with urology services outpatient Monitor vital signs Monitor CBC Monitor CMP Continue telemetry monitoring Continue oxygen supplementation CEncourage use of BiPAP as needed Follow-up on blood culture Follow-up on sputum culture Strict I's and O's, daily weights, Lasix 40 mg daily Currently amiodarone and Lopressor on hold Echo done showed LVEF of 60 to 65%, no obvious regional wall motion abnormalities, mildly increased septal wall thickness Cardiology following Pulmonology following PT and OT following Labs and medication were reviewed.. Continue same treatment. Continue with symptomatic treatment. Resume home medication. Monitor labs and vitals. DVT and GI prophylaxis. Further recommendations as per clinical course of the patient Dictation was produced using [employer] dictation software. please excuse any grammatical, word or spelling errors. Objective - Vital Signs Vital signs: Vital Signs Temp 98.2 F 03/22/24 08:15 Pulse 59 L 03/22/24 12:00 Resp 18 03/22/24 12:00 BP 113/64 03/22/24 12:00 Pulse Ox 95 03/22/24 12:00 FiO2 50 03/20/24 03:11 Intake & Output 03/21/24 03/22/24 03/22/24 18:59 06:59 18:59 Intake Total 180 Output Total 300 1750 900 Balance -120 -1750 -900 Weight 91 kg Intake: Oral 180 Output: Urine 300 1750 900 Other: Voiding Method Indwelling Catheter Indwelling Catheter Indwelling Catheter # Bowel Movements 1 ABP, PAP, CO, CI - Last Documented Arterial Blood Pressure 122/42 - Labs CBC & Chem 7: 03/21/24 06:13 03/22/24 06:51 Labs: Abnormal Lab Results - Last 24 Hours (Table) 03/22/24 Range/Units 06:51 Sodium 136 L (137-145) mmol/L Chloride 92 L (98-107) mmol/L Carbon Dioxide 38 H (22-30) mmol/L
--- NOTE | 2024-03-22 16:00 | P.PN ---
Subjective Progress Note Date: 03/22/24 PROGRESS NOTE The patient is a 78-year-old male who presented with symptoms of progressive dyspnea and respiratory failure requiring mechanical ventilation. He is awake, denies any chest discomfort, dizziness or palpitations. He is in sinus mechanism and hemodynamically stable not requiring vasopressors. He has a history of paroxysmal atrial fibrillation. His echocardiogram showed an ejection fraction of 60 to 65%, with moderate to severe aortic stenosis. His urinary output has been stable, he continues to be on IV diuretics. He had no episodes of atrial fibrillation. March 21: The patient is feels better today, he feels stronger and is anxious to go home. He continues to be in sinus mechanism and he has no significant bradycardia arrhythmia. He denies any chest discomfort, dizziness or palpitations. He denies any nausea or vomiting. He had mild hematuria that is improving. He has not been out of bed yet. 03/22/2024 BP 113/65, heart rate 58 bpm, kidney function is stable, bicarb is improving. Medications: Eliquis 5 mg twice a day, Lipitor 40 mg daily, Lasix 40 mg p.o. every 12 hours, Zosyn, spironolactone 25 mg daily. PHYSICAL EXAMINATION: Blood pressure 107/60 heart rate 60 LUNGS: Few crackles at the base HEART: Regular rate and rhythm, S1, S2. No S3. Systolic ejection murmur, 3/6 ABDOMEN: Soft, nontender, no organomegaly EXTREMETIES: No edema IMPRESSION: 1. Respiratory failure with preserved systolic function, improving 2. Moderate aortic stenosis by echocardiography although suboptimal 3. Paroxysmal atrial fibrillation, maintaining sinus mechanism 4. Pneumonia, improving 5. Hyperlipidemia PLAN: Continue current medications Increase physical activity Continue to monitor telemetry and renal function electrolytes Further recommendations to follow Objective - Vital Signs Vital signs: Vital Signs Temp 98.2 F 03/22/24 08:15 Pulse 59 L 03/22/24 12:00 Resp 18 03/22/24 12:00 BP 113/64 03/22/24 12:00 Pulse Ox 95 03/22/24 12:00 FiO2 50 03/20/24 03:11 Intake & Output 03/21/24 03/22/24 03/22/24 18:59 06:59 18:59 Intake Total 180 Output Total 300 1750 900 Balance -120 -1750 -900 Weight 91 kg Intake: Oral 180 Output: Urine 300 1750 900 Other: Voiding Method Indwelling Catheter Indwelling Catheter Indwelling Catheter # Bowel Movements 1 ABP, PAP, CO, CI - Last Documented Arterial Blood Pressure 122/42 - Labs CBC & Chem 7: 03/21/24 06:13 03/22/24 06:51 Labs: Abnormal Lab Results - Last 24 Hours (Table) 03/22/24 Range/Units 06:51 Sodium 136 L (137-145) mmol/L Chloride 92 L (98-107) mmol/L Carbon Dioxide 38 H (22-30) mmol/L
[2024-03-23 07:02] LABS: ALT 12 U/L (4-49); AST 21 U/L (17-59); African American GFR (CKD) 89 (>60 ml/min/1.73 sqM); Alkaline Phosphatase 79 U/L (38-126); Anion Gap 5 mmol/L; Blood Urea Nitrogen 15 mg/dL (9-20); Calcium 8.7 mg/dL (8.4-10.2); Chloride 93 mmol/L (98-107); Glucose 80 mg/dL (74-99); Non-African American GFR(CKD) 77 (>60 ml/min/1.73 sqM); Potassium 4.4 mmol/L (3.5-5.1); Sodium 138 mmol/L (137-145); Total Bilirubin 0.3 mg/dL (0.2-1.3); Total Protein 6.3 g/dL (6.3-8.2)
[2024-03-23 07:25] LABS: Carbon Dioxide 40 mmol/L (22-30)
[2024-03-23 07:40] LABS: Basophils % (A) 0 %; Eosinophils # (A) 0.2 k/uL (0-0.7); Eosinophils % (A) 6 %; HCT 33.1 % (39.0-53.0); HGB 10.1 gm/dL (13.0-17.5); Hypochromasia Marked; Lymphocytes # (A) 0.8 k/uL (1.0-4.8); Lymphocytes % (A) 20 %; MCH 26.2 pg (25.0-35.0); MCHC 30.4 g/dL (31.0-37.0); MCV 86.2 fL (80.0-100.0); Mean Platelet Volume 7.6; Monocytes # (A) 0.3 k/uL (0-1.0); Monocytes % (A) 8 %; Neutrophils # (A) 2.5 k/uL (1.3-7.7); Neutrophils % (A) 64 %; Platelet Count 231 k/uL (150-450); RBC 3.84 m/uL (4.30-5.90); RDW 15.3 % (11.5-15.5); WBC 3.8 k/uL (3.8-10.6)
--- NOTE | 2024-03-23 10:39 | P.PN ---
Subjective Progress Note Date: 03/23/24 Chevy French is a 78-year-old male patient who presented with complaints of shortness of breath per patient and family symptoms started about a week ago but significantly increased this morning and EMS was called patient was found to be satting 60% on room air patient denies any recent illness or chest pain. Patient has a past medical history of femur fracture in January 2024 with repair chest x-ray was completed showing correlation for CHF with bilateral pulmonary edema small pleural effusions CTA of the chest performed showing limited assessment for pulmonary embolism due to motion artifact and suboptimal enhancement large bilateral pleural effusion with diffuse airspace disease correlation for diffuse pneumonia or pulmonary edema. ABGs performed showing pH of 7.22, pCO2 of 85, pO2 of 171 and sodium bicarb 35. Patient was started on BiPAP in ER patient also started on IV antibiotics. Influenza RSV and COVID-19 negative. At this time patient will be admitted pulmonary services consulted Dr. mcgraw's group was covering 04/14/2023-03/23/2024 On 03/23/2024 patient is alert and oriented. Patient was previously intubated and extubated. Cardiology and pulmonary services are following. Patient no longer on IV antibiotics. Current vital signs temp 98.0, heart rate 62, respiratory rate 16, blood pressure 116/58 with a pulse ox of 93% on 3 L discharge planning is in place ECF versus home. Patient denies chest pain or shortness of breath. Patient denies nausea vomiting or diarrhea. Patient denies any urinary burning or frequency Objective - Vital Signs Vital signs: Vital Signs Temp 98.0 F 03/23/24 09:26 Pulse 62 03/23/24 09:36 Resp 16 03/23/24 09:36 BP 116/58 03/23/24 09:26 Pulse Ox 93 L 03/23/24 09:26 FiO2 50 03/20/24 03:11 Intake & Output 03/22/24 03/23/24 03/23/24 18:59 06:59 18:59 Intake Total 10 Output Total 900 600 Balance -900 -600 10 Weight 89.1 kg Intake: IV 10 Invasive Line 5 10 Oral 0 Output: Urine 900 600 Uretheral (Rich) 600 Other: Voiding Method Indwelling Catheter Indwelling Catheter Indwelling Catheter ABP, PAP, CO, CI - Last Documented Arterial Blood Pressure 122/42 - Exam Head normocephalic Neck supple Lungs diminished bilaterally Heart regular rate and rhythm S1-S2, no rub or gallop Abdomen is soft nontender nondistended positive bowel sounds no hepatosplenom egaly Extremities no edema Neuro alert and orientated to 3 - Labs CBC & Chem 7: 03/23/24 05:42 03/23/24 05:42 Labs: Abnormal Lab Results - Last 24 Hours (Table) 03/23/24 03/23/24 Range/Units 05:42 05:42 RBC 3.84 L (4.30-5.90) m/uL Hgb 10.1 L (13.0-17.5) gm/dL Hct 33.1 L (39.0-53.0) % MCHC 30.4 L (31.0-37.0) g/dL Lymphocytes # 0.8 L (1.0-4.8) k/uL Chloride 93 L (98-107) mmol/L Carbon Dioxide 40 H (22-30) mmol/L Albumin 3.0 L (3.5-5.0) g/dL Assessment and Plan Assessment: Shortness of breath secondary to increased pulmonary edema and possible pneumonia Acute hypoxic and hypercapnic respiratory failure required intubation on 03/15/2024 but extubated 03/16/2024 Acute hypercapnic respiratory failure patient started on BiPAP History of left femur fracture with repair in January 2024 History of urinary retention follows with urology services outpatient At this time patient will be admitted Patient has been extubated Discharge planning in progress ECF versus home with home health care DVT prophylaxis Brynn
--- NOTE | 2024-03-23 13:11 | P.PN ---
Subjective Progress Note Date: 03/23/24 Principal diagnosis: Heart failure. This is a 78-year-old male patient with a known history of atrial fibrillation anticoagulated with Eliquis, hypertension, hyperlipidemia, BPH and recent femur fracture. He was brought in here early this morning after having complaints of increasing shortness of breath. Upon arrival by EMS they found him to have an O2 saturation of 60% and initially had refused treatment. They were called back a couple hours later and the patient was brought into the emergency room about 6:00 this morning. Chest x-ray revealed bilateral pulmonary edema with small pleural effusions consistent with congestive heart failure. CT angiogram ruled out central pulmonary embolism. There is large bilateral pleural effusions with diffuse airspace disease possible pneumonia versus pulmonary edema. White count 6.0. Hemoglobin 10.3. Platelets 307. D-dimer 1.47. INR 1.0. Sodium 139. Potassium 4.5. Bicarb 33. BUN 28. Creatinine 0.90. Glucose 110. proBNP 2540. Viral screen was negative. Troponin negative x 1. Arterial blood gases on 100% FiO2 revealed a PaO2 of 171. pCO2 85. pH 7.22. He is placed on BiPAP currently 14/6 and 50% FiO2. He is afebrile. Bradycardic in the 50s. Blood pressure stable. Mean arterial pressure in the 70s. He is seen today in consultation in the emergency department. He is awake and alert. He is asking to go home. He is continued on BiPAP. He was initiated on ceftriaxone. Continued on Bumex. Anticoagulated with Eliquis. The patient is seen today March 15, 2024 in follow-up on the selective care unit. He is currently sitting up in bed. Awake and alert in no acute distress. His family is at the bedside. He is breathing a bit better today compared to yesterday. He did remain on BiPAP 14/6 and 50% FiO2. He is currently on oxygen at 7 L high flow nasal cannula. O2 saturations in the 90s. He has been afebrile. Hemodynamically stable. Chest x-ray continues to show multiple bilateral patchy airspace opacities with slight improvement today compared to yesterday. White count 5.9. Hemoglobin 10.4. Platelets 313. Sodium 142. Potassium 4.9. Bicarb 39. BUN 26. Creatinine 1.12. Procalcitonin was negative at 0.10. Legionella screen was negative. Viral screen was negative. He is anticoagulated with Eliquis. He remains on IV diuretics. No accurate intake and output recorded. Seen today on 03/16/2024, remains in the ICU, remains intubated and mechanically ventilated. He is on assist-control rate of 16 tidal volume 500 FiO2 40% PEEP of 8 patient was on propofol at 30 mcg/kg/min also on norepinephrine at 0. 03 mcg/kg/min, remains empirically on Zosyn, still receiving Lasix every 8 hours 40 mg. Remains on Eliquis. Patient seems to have pinpoint pupils however after propofol was discontinued, patient woke up, and his pupils were noted to be normal. Hence no need for CT of the brain at this point. Patient seems to be appropriate after he was taken off propofol, hence I recommended a trial of pressure support and CPAP, patient was placed on pressure support of 10, CPAP, and FiO2 at 50%, this was done for about an hour, follow-up ABG on 40% FiO2 and pressure support showed a pO2 of 74 pCO2 60 pH of 7.42 and the patient was again appropriate, recommended extubation. He was placed on BiPAP 14/6/50% which will be titrated down to 40%. Patient had blood cultures negative so far, sputum cultures were sent today. WBC count is 5.7 hemoglobin 9.3, Basic metabolic profile is normal BUN is 30 creatinine 1.28 chest x-ray continues show bilateral airspace disease mostly involving upper lobes. Seen today on 02/26/2024, patient was extubated yesterday, tolerated the extubation well, overnight he was kept on BiPAP 16/6/50% patient remains on Lasix 40 mg IV push every 8 hours remains on Zosyn and Eliquis, clinically the patient is feeling much better breathing a lot easier, I was able to titrate him down to 2 L nasal cannula and he seems to be doing well. Neurologically patient is weak but seems to be very appropriate. WBC count is 3.8 hemoglobin is 9.3electrolytes are normal BUN is 26 creatinine down to 1.21 blood cultures and sputum cultures remain negative so far. Chest x-ray continues to show diffuse bilateral airspace disease with small pleural effusions Patient was seen today on, patient is still in ICU, he is on 6 L nasal cannula, O2 saturation is in the high 90s. Intermittently or at night on BiPAP 16/6/50%. Remains on Lasix 40 mg IV push twice daily remains on Zosyn remains on Eliquis chest x-ray is showing slight improvement but clinically the patient is significantly improved. WBC count is 4 hemoglobin 9.6 electrolytes are normal renal profile is normal creatinine is down to 1.07 today from 1.35 few days ago patient remains in negative fluid balance since admission and continues to improve with diuretics. Reevaluate today on 03/19/2024, patient remains in the ICU, significant clinical improvement noted, slight improvement noted on chest x-ray but the clinical improvement is much better than the radiographic improvement noted. Patient is now 3 L nasal cannula, does not seem to be in any distress, at night he was placed on BiPAP 16/6/50%, patient remains on Lasix at 40 mg IV push twice daily he is also on Zosyn although his procalcitonin level is 0.10 remains on Eliquis. His chest x-ray findings remain worrisome in spite of his significant clinical improvement. Hence I am keeping him on antibiotics and I am keeping him on diuretics. CBC today is normal electrolytes are normal bicarb is 38 BUN is 17 creatinine improving down to 1.03 The patient is seen today March 20, 2024 in follow-up in the intensive care unit. He is currently sitting up in bed. Awake and alert in no acute distress. He is maintaining good O2 saturations in the 90s on 4 L/min per nasal cannula. He did wear BiPAP last night 16/6 and 50% FiO2. He has normal saline at KVO. He is continued on Zosyn. On oral diuretics. Anticoagulated with Eliquis. Blood and sputum cultures revealed no growth. White count 4.6. Hemoglobin 9.9. Platelets 240. Sodium 138. Potassium 3.9. Bicarb 40. BUN 16. Creatinine 0.93. His procalcitonin was negative at 0.10. The patient is seen today March 21, 2024 in follow-up in the intensive care unit. He is currently awake and alert in no acute distress. Sitting up in bed. On 2 L per minute per nasal cannula. No worsening shortness of breath, cough or congestion. Blood and sputum cultures revealed no growth. White count 3.4. Hemoglobin 10.0. Platelets 241. Sodium 138. Potassium 4.2. Bicarb 43. BUN 14. Creatinine 0.93. He remains anticoagulated with Eliquis. Continued on oral diuretics. Progress note dated March 22, 2024. 78-year-old male seen today in room 357. The patient is on 3 L of oxygen. No IV fluids. The patient's daughter is in the room. She has a number of questions and we try to answer all of them for her. The patient is doing b amanda, and would like to get out of bed, and maybe even walk around the room. All he has to do is call for the nurses. Current labs include a sodium 136, potassium 4.3, chlorides 92, CO2 38, BUN 13, creatinine 1. Glucose is 83. Progress note dated March 23, 2024. 78-year-old male seen today in room 357. He is sitting in a chair next to his hospital bed. The patient appears to be doing relatively well. He would like to be discharged home. He is sitting up in a chair as mentioned. He is on 3 L of oxygen. White count 3.8, hemoglobin 10.1, hematocrit 33.1, and platelet count is 231,000. Sodium 138, potassium 4.4, chlorides 93, CO2 40, BUN 15, creatinine 0.96. Albumin is 3. Objective - Vital Signs Vital signs: Vital Signs Temp 96.6 F L 03/23/24 11:24 Pulse 60 03/23/24 11:24 Resp 16 03/23/24 11:24 BP 121/60 03/23/24 11:24 Pulse Ox 96 03/23/24 11:24 FiO2 50 03/20/24 03:11 Intake & Output 03/22/24 03/23/24 03/23/24 18:59 06:59 18:59 Intake Total 10 Output Total 900 600 Balance -900 -600 10 Weight 89.1 kg Intake: IV 10 Invasive Line 5 10 Oral 0 Output: Urine 900 600 Uretheral (Rich) 600 Other: Voiding Method Indwelling Catheter Indwelling Catheter Indwelling Catheter ABP, PAP, CO, CI - Last Documented Arterial Blood Pressure 122/42 - Exam No acute distress, oriented 3. Currently on 3 L. HEENT examination is grossly unremarkable. Mucous membranes are moist. No oral lesions. Neck supple. Full range of motion. No adenopathy thyromegaly or neck vein distention. Cardiovascular examination reveals regular rhythm rate. S1-S2 normal. No S3 or S4. Harsh murmur of aortic stenosis noted. Lungs reveal minimal bibasilar crackles. No wheezes or rhonchi. Breath sounds equal. Abdomen soft bowel sounds are heard. No masses or tenderness. Extremities are intact. No cyanosis clubbing or edema. Skin is without rash or lesion. Neurologic examination is brief but nonfocal. - Labs CBC & Chem 7: 03/23/24 05:42 03/23/24 05:42 Labs: Abnormal Lab Results - Last 24 Hours (Table) 03/23/24 03/23/24 Range/Units 05:42 05:42 RBC 3.84 L (4.30-5.90) m/uL Hgb 10.1 L (13.0-17.5) gm/dL Hct 33.1 L (39.0-53.0) % MCHC 30.4 L (31.0-37.0) g/dL Lymphocytes # 0.8 L (1.0-4.8) k/uL Chloride 93 L (98-107) mmol/L Carbon Dioxide 40 H (22-30) mmol/L Albumin 3.0 L (3.5-5.0) g/dL Assessment and Plan Assessment: Acute hypoxemic and hypercapnic respiratory failure secondary to an acute exa cerbation of diastolic congestive heart failure and valvular heart disease. He did require being intubated on 03/15/2024 and subsequently extubated the next day on 03/16/2024. History of atrial fibrillation. Moderate aortic stenosis. Recent admission here from December 15, 2023 through December 29, 2023 for acute kidney injury. Femur fracture requiring hospitalization and surgical repair November 27, 2023 and discharged to [facility] November 30, 2023. History of CVA with residual left-sided weakness. Anemia of chronic disease. Benign prostatic hyperplasia. Hypertension. Hyperlipidemia. Former smoker. Plan: Plan dated March 22, 2024. The patient is doing relatively well. He is resting comfortably in bed. He continues on 3 L. His daughter is in the room. He is not receiving any IV fluids. Labs, x-rays, medications are reviewed. We will continue to follow the patient, make recommendations along the way. The patient's heart failure, in part, is related to his moderately severe aortic stenosis. The patient would like to get out of bed and sit in the chair, and/or walk around. All he has to do is asked for the nurses. Plan dated March 23, 2024. The patient is resting comfortably in his room. He is sitting in a chair next to his hospital bed. He continues on oxygen at 3 L. He mentions that he wants to be discharged home. Certainly will leave that up to the primary service. The patient is now been in the hospital for 9 days. Labs, x-rays, and all medications are reviewed. We will continue to follow the patient, make recommendations where appropriate. No recent chest x-ray. Blood cultures and other cultures are negative. Prognosis is guarded. Time with Patient: Less than 30
--- NOTE | 2024-03-23 13:18 | P.PN ---
Subjective Progress Note Date: 03/23/24 PROGRESS NOTE The patient is a 78-year-old male who presented with symptoms of progressive dyspnea and respiratory failure requiring mechanical ventilation. He is awake, denies any chest discomfort, dizziness or palpitations. He is in sinus mechanism and hemodynamically stable not requiring vasopressors. He has a history of paroxysmal atrial fibrillation. His echocardiogram showed an ejection fraction of 60 to 65%, with moderate to severe aortic stenosis. His urinary output has been stable, he continues to be on IV diuretics. He had no episodes of atrial fibrillation. March 21: The patient is feels better today, he feels stronger and is anxious to go home. He continues to be in sinus mechanism and he has no significant bradycardia arrhythmia. He denies any chest discomfort, dizziness or palpitations. He denies any nausea or vomiting. He had mild hematuria that is improving. He has not been out of bed yet. Medications: Eliquis 5 mg twice a day, Lipitor 40 mg daily, Lasix 40 mg p.o. every 12 hours, Zosyn, spironolactone 25 mg daily. 03/22/2024 BP 113/65, heart rate 58 bpm, kidney function is stable, bicarb is improving. 03/23/24 Patient states that he is feeling stronger and better in general. He states he wants to go home. He denies have any chest pain no dizziness. Blood pressure 116/58, heart rate 62, pulse ox 93% on 3 L nasal cannula. Telemetry is sinus rhythm. Repeat blood work reveals hemoglobin 10.3. BUN 15, creatinine 0.96, potassium 4.4. Patient is waiting for insurance authorization for subacute rehab. PHYSICAL EXAMINATION: LUNGS: Few crackles at the base HEART: Regular rate and rhythm, S1, S2. No S3. Systolic ejection murmur, 3/6 ABDOMEN: Soft, nontender, no organomegaly EXTREMETIES: No edema IMPRESSION: 1. Respiratory failure with preserved systolic function, improving 2. Moderate aortic stenosis by echocardiography although suboptimal 3. Paroxysmal atrial fibrillation, maintaining sinus mechanism 4. Pneumonia, improving 5. Hyperlipidemia PLAN: Continue current medications Increase patient activity Patient will need follow-up in the office regarding aortic stenosis and further workup regarding this. Nurse practitioner note has been reviewed, I agree with documented findings and plan of care. Patient was seen and examined. Objective - Vital Signs Vital signs: Vital Signs Temp 98.3 F 03/23/24 03:35 Pulse 62 03/23/24 03:35 Resp 16 03/23/24 03:35 BP 108/53 03/23/24 03:35 Pulse Ox 92 L 03/23/24 03:35 FiO2 50 03/20/24 03:11 Intake & Output 03/22/24 03/23/24 03/23/24 18:59 06:59 18:59 Output Total 900 600 Balance -900 -600 Weight 89.1 kg Output: Urine 900 600 Uretheral (Rich) 600 Other: Voiding Method Indwelling Catheter Indwelling Catheter ABP, PAP, CO, CI - Last Documented Arterial Blood Pressure 122/42 - Labs CBC & Chem 7: 03/23/24 05:42 03/23/24 05:42 Labs: Abnormal Lab Results - Last 24 Hours (Table) 03/23/24 03/23/24 Range/Units 05:42 05:42 RBC 3.84 L (4.30-5.90) m/uL Hgb 10.1 L (13.0-17.5) gm/dL Hct 33.1 L (39.0-53.0) % MCHC 30.4 L (31.0-37.0) g/dL Lymphocytes # 0.8 L (1.0-4.8) k/uL Chloride 93 L (98-107) mmol/L Carbon Dioxide 40 H (22-30) mmol/L Albumin 3.0 L (3.5-5.0) g/dL
[2024-03-24 03:47] VITALS: RESP 16
[2024-03-24 06:11] LABS: Basophils % (A) 0 %; Eosinophils # (A) 0.3 k/uL (0-0.7); Eosinophils % (A) 7 %; HCT 33.7 % (39.0-53.0); HGB 10.4 gm/dL (13.0-17.5); Hypochromasia Marked; Lymphocytes # (A) 0.8 k/uL (1.0-4.8); Lymphocytes % (A) 20 %; MCH 26.8 pg (25.0-35.0); MCV 86.3 fL (80.0-100.0); Mean Platelet Volume 7.3; Monocytes # (A) 0.3 k/uL (0-1.0); Monocytes % (A) 8 %; Neutrophils # (A) 2.6 k/uL (1.3-7.7); Neutrophils % (A) 63 %; Platelet Count 227 k/uL (150-450); RDW 15.3 % (11.5-15.5)
[2024-03-24 06:32] LABS: ALT 13 U/L (4-49); AST 21 U/L (17-59); African American GFR (CKD) >90 (>60 ml/min/1.73 sqM); Albumin 3.3 g/dL (3.5-5.0); Alkaline Phosphatase 81 U/L (38-126); Blood Urea Nitrogen 18 mg/dL (9-20); Calcium 8.8 mg/dL (8.4-10.2); Chloride 91 mmol/L (98-107); Glucose 82 mg/dL (74-99); Non-African American GFR(CKD) 81 (>60 ml/min/1.73 sqM); Potassium 4.2 mmol/L (3.5-5.1); Sodium 137 mmol/L (137-145); Total Bilirubin 0.3 mg/dL (0.2-1.3); Total Protein 6.7 g/dL (6.3-8.2)
[2024-03-24 06:39] LABS: Anion Gap 8 mmol/L; Carbon Dioxide 38 mmol/L (22-30)
[2024-03-24 08:47] VITALS: TEMP 97.8
--- NOTE | 2024-03-24 10:15 | P.PN ---
Subjective Progress Note Date: 03/24/24 Chevy French is a 78-year-old male patient who presented with complaints of shortness of breath per patient and family symptoms started about a week ago but significantly increased this morning and EMS was called patient was found to be satting 60% on room air patient denies any recent illness or chest pain. Patient has a past medical history of femur fracture in January 2024 with repair chest x-ray was completed showing correlation for CHF with bilateral pulmonary edema small pleural effusions CTA of the chest performed showing limited assessment for pulmonary embolism due to motion artifact and suboptimal enhancement large bilateral pleural effusion with diffuse airspace disease correlation for diffuse pneumonia or pulmonary edema. ABGs performed showing pH of 7.22, pCO2 of 85, pO2 of 171 and sodium bicarb 35. Patient was started on BiPAP in ER patient also started on IV antibiotics. Influenza RSV and COVID-19 negative. At this time patient will be admitted pulmonary services consulted Dr. mcgraw's group was covering 04/14/2023-03/23/2024 On 03/23/2024 patient is alert and oriented. Patient was previously intubated and extubated. Cardiology and pulmonary services are following. Patient no longer on IV antibiotics. Current vital signs temp 98.0, heart rate 62, respiratory rate 16, blood pressure 116/58 with a pulse ox of 93% on 3 L discharge planning is in place ECF versus home. Patient denies chest pain or shortness of breath. Patient denies nausea vomiting or diarrhea. Patient denies any urinary burning or frequency On 03/24/2024 patient is alert and oriented x 3. Patient is currently resting comfortably in bed. Discussed case with case management for discharge planning to ECF has been started. Awaiting insurance authorization. Current vital signs temp 97.8, heart rate 63, respiratory rate 16, blood pressure 117/62 with a pulse ox of 97% on 3 L Objective - Vital Signs Vital signs: Vital Signs Temp 97.8 F 03/24/24 08:45 Pulse 63 03/24/24 08:45 Resp 16 03/24/24 08:45 BP 117/62 03/24/24 08:45 Pulse Ox 92 L 03/24/24 08:45 FiO2 50 03/20/24 03:11 Intake & Output 03/23/24 03/24/24 03/24/24 18:59 06:59 18:59 Intake Total 20 20 110 Output Total 1000 625 Balance -980 -605 110 Weight 86.5 kg Intake: IV 20 20 10 Invasive Line 5 20 20 10 Oral 0 100 Output: Urine 1000 625 Other: Voiding Method Indwelling Catheter Indwelling Catheter Indwelling Catheter ABP, PAP, CO, CI - Last Documented Arterial Blood Pressure 122/42 - Exam Head normocephalic Neck supple Lungs diminished bilaterally Heart regular rate and rhythm S1-S2, no rub or gallop Abdomen is soft nontender nondistended positive bowel sounds no hepatosplenomegaly Extremities no edema Neuro alert and orientated to 3 - Labs CBC & Chem 7: 03/24/24 05:31 03/24/24 05:31 Labs: Abnormal Lab Results - Last 24 Hours (Table) 03/24/24 03/24/24 Range/Units 05:31 05:31 RBC 3.90 L (4.30-5.90) m/uL Hgb 10.4 L (13.0-17.5) gm/dL Hct 33.7 L (39.0-53.0) % Lymphocytes # 0.8 L (1.0-4.8) k/uL Chloride 91 L (98-107) mmol/L Carbon Dioxide 38 H (22-30) mmol/L Albumin 3.3 L (3.5-5.0) g/dL Assessment and Plan Assessment: Shortness of breath secondary to increased pulmonary edema and possible pneumonia Acute hypoxic and hypercapnic respiratory failure required intubation on 03/15 but extubated 03/16/2024 Acute hypercapnic respiratory failure patient started on BiPAP History of left femur fracture with repair in January 2024 History of urinary retention follows with urology services outpatient At this time patient will be admitted Patient has been extubated Discharge planning in progress ECF versus home with home health care DVT prophylaxis Brynn
[2024-03-24 11:56] VITALS: BP 111/62; PULSE 58
--- NOTE | 2024-03-24 13:41 | P.DS ---
Providers Date of admission: 03/14/24 09:44 Expected date of discharge: 03/24/24 Attending physician: Kristine Pena Consults: 03/14/24 08:25 Consult Physician Urgent Consulting Provider: Constantino Briones Consult Reason/Comments: Acute hypoxic respiratory failure Do you want consulting provider notified?: Yes 03/14/24 10:11 Consult Physician Routine Consulting Provider: Shannon Fink Consult Reason/Comments: recent patient Do you want consulting provider notified?: Yes 03/15/24 13:20 Consult Physician Routine Consulting Provider: Lisa Eagle Consult Reason/Comments: Bacterial pneumonia Do you want consulting provider notified?: Yes Primary care physician: Kristinetl Pena [facility] Hospital Course: Diagnosis on discharge: 1. Shortness of breath secondary to increased pulmonary edema and possible pneumonia 2. Acute hypoxic and hypercapnic respiratory failure required intubation on 03/15/2024 but extubated 03/16/2024 3. Acute hypercapnic respiratory failure patient started on BiPAP 4. History of left femur fracture with repair in January 2024 5. History of urinary retention follows with urology services outpatient Hospital course: Chevy French is a 78-year-old male patient who presented with complaints of shortness of breath per patient and family symptoms started about a week ago but significantly increased this morning and EMS was called patient was found to be satting 60% on room air patient denies any recent illness or chest pain. Patient has a past medical history of femur fracture in January 2024 with repair chest x-ray was completed showing correlation for CHF with bilateral pulmonary edema small pleural effusions CTA of the chest performed showing limited assessment for pulmonary embolism due to motion artifact and suboptimal enhancement large bilateral pleural effusion with diffuse airspace disease correlation for diffuse pneumonia or pulmonary edema. ABGs performed showing pH of 7.22, pCO2 of 85, pO2 of 171 and sodium bicarb 35. Patient was started on BiPAP in ER patient also started on IV antibiotics. Influenza RSV and COVID-19 negative. At this time patient will be admitted pulmonary services consulted Dr. mcgraw's group was covering 04/14/2023-03/23/2024 On 03/23/2024 patient is alert and oriented. Patient was previously intubated and extubated. Cardiology and pulmonary services are following. Patient no longer on IV antibiotics. Current vital signs temp 98.0, heart rate 62, respiratory rate 16, blood pressure 116/58 with a pulse ox of 93% on 3 L discharge planning is in place ECF versus home. Patient denies chest pain or shortness of breath. Patient denies nausea vomiting or diarrhea. Patient denies any urinary burning or frequency On 03/24/2024 patient is alert and oriented x 3. Patient is currently resting comfortably in bed. Discussed case with case management for discharge planning to ECF has been started. Awaiting insurance authorization. Current vital signs temp 97.8, heart rate 63, respiratory rate 16, blood pressure 117/62 with a pulse ox of 97% on 3 L Plan - Discharge Summary Discharge Rx Participant: No New Discharge Prescriptions: New Furosemide [Lasix] 40 mg PO DAILY tab Iron Ps Cmplx/Vit B12/FA [Niferex-150 Forte] 1 each PO DAILY cap Spironolactone [Aldactone] 25 mg PO DAILY tab HYDROcodone/APAP 5-325MG [[place] 5-325] 1 each PO Q4HR PRN tab PRN Reason: Moderate Pain (Scale 4 To 6) Continue Lactose-Reduced Food [Ensure Plus] 1 can PO DAILY Docusate [Colace] 100 mg PO BID cap Apixaban [Eliquis] 5 mg PO BID Tamsulosin [Flomax] 0.4 mg PO BID Nicotine 21Mg/24Hr Patch [Habitrol] 1 patch TRANSDERM DAILY patch Atorvastatin [Lipitor] 40 mg PO DAILY Discontinued Sennosides [Senokot] 17.2 tab PO DAILY PRN PRN Reason: Constipation Apixaban [Eliquis] 5 mg PO BID tab polyethylene glycoL 3350 [Miralax] 17 gm PO DAILY packet Simethicone 40 mg/0.6 ml Drops [Mylicon Drops] 80 mg PO QID ml Metoprolol Succinate (ER) [Toprol XL] 12.5 mg PO DAILY tab Metoprolol Tartrate [Lopressor] 25 mg PO DAILY Bumetanide [BUMEX] 1 mg PO DAILY tab Amiodarone [Cordarone] 400 mg PO BID tab Tamsulosin [Flomax] 0.4 mg PO PC-BRKFST #0 cap Atorvastatin [Lipitor] 40 mg PO DAILY tab HYDROcodone/APAP 5-325MG [[place] 5-325] 1 - 2 tab PO Q6HR PRN #32 tab PRN Reason: Pain Amiodarone [Cordarone] 200 mg PO DAILY Bumetanide [Bumex] 1 mg PO DAILY Discharge Medication List Nicotine 21Mg/24Hr Patch [Habitrol] 1 patch TRANSDERM DAILY patch 11/30/23 [Rx] Lactose-Reduced Food [Ensure Plus] 1 can PO DAILY 12/15/23 [History] Docusate [Colace] 100 mg PO BID cap 12/29/23 [Rx] Apixaban [Eliquis] 5 mg PO BID 03/14/24 [History] Atorvastatin [Lipitor] 40 mg PO DAILY 03/14/24 [History] Tamsulosin [Flomax] 0.4 mg PO BID 03/14/24 [History] Furosemide [Lasix] 40 mg PO DAILY tab 03/24/24 [Rx] HYDROcodone/APAP 5-325MG [[place] 5-325] 1 each PO Q4HR PRN tab 03/24/24 [Rx] Iron Ps Cmplx/Vit B12/FA [Niferex-150 Forte] 1 each PO DAILY cap 03/24/24 [Rx] Spironolactone [Aldactone] 25 mg PO DAILY tab 03/24/24 [Rx] Follow up Appointment(s)/Referral(s): [facility] [Provider Group] - 1 Week Kristine Pena MD [Primary Care Provider] - 1-2 days
--- NOTE | 2024-03-24 14:06 | P.PN ---
Subjective Progress Note Date: 03/24/24 Principal diagnosis: Heart failure. This is a 78-year-old male patient with a known history of atrial fibrillation anticoagulated with Eliquis, hypertension, hyperlipidemia, BPH and recent femur fracture. He was brought in here early this morning after having complaints of increasing shortness of breath. Upon arrival by EMS they found him to have an O2 saturation of 60% and initially had refused treatment. They were called back a couple hours later and the patient was brought into the emergency room about 6:00 this morning. Chest x-ray revealed bilateral pulmonary edema with small pleural effusions consistent with congestive heart failure. CT angiogram ruled out central pulmonary embolism. There is large bilateral pleural effusions with diffuse airspace disease possible pneumonia versus pulmonary edema. White count 6.0. Hemoglobin 10.3. Platelets 307. D-dimer 1.47. INR 1.0. Sodium 139. Potassium 4.5. Bicarb 33. BUN 28. Creatinine 0.90. Glucose 110. proBNP 2540. Viral screen was negative. Troponin negative x 1. Arterial blood gases on 100% FiO2 revealed a PaO2 of 171. pCO2 85. pH 7.22. He is placed on BiPAP currently 14/6 and 50% FiO2. He is afebrile. Bradycardic in the 50s. Blood pressure stable. Mean arterial pressure in the 70s. He is seen today in consultation in the emergency department. He is awake and alert. He is asking to go home. He is continued on BiPAP. He was initiated on ceftriaxone. Continued on Bumex. Anticoagulated with Eliquis. The patient is seen today March 15, 2024 in follow-up on the selective care unit. He is currently sitting up in bed. Awake and alert in no acute distress. His family is at the bedside. He is breathing a bit better today compared to yesterday. He did remain on BiPAP 14/6 and 50% FiO2. He is currently on oxygen at 7 L high flow nasal cannula. O2 saturations in the 90s. He has been afebrile. Hemodynamically stable. Chest x-ray continues to show multiple bilateral patchy airspace opacities with slight improvement today compared to yesterday. White count 5.9. Hemoglobin 10.4. Platelets 313. Sodium 142. Potassium 4.9. Bicarb 39. BUN 26. Creatinine 1.12. Procalcitonin was negative at 0.10. Legionella screen was negative. Viral screen was negative. He is anticoagulated with Eliquis. He remains on IV diuretics. No accurate intake and output recorded. Seen today on 03/16/2024, remains in the ICU, remains intubated and mechanically ventilated. He is on assist-control rate of 16 tidal volume 500 FiO2 40% PEEP of 8 patient was on propofol at 30 mcg/kg/min also on norepinephrine at 0. 03 mcg/kg/min, remains empirically on Zosyn, still receiving Lasix every 8 hours 40 mg. Remains on Eliquis. Patient seems to have pinpoint pupils however after propofol was discontinued, patient woke up, and his pupils were noted to be normal. Hence no need for CT of the brain at this point. Patient seems to be appropriate after he was taken off propofol, hence I recommended a trial of pressure support and CPAP, patient was placed on pressure support of 10, CPAP, and FiO2 at 50%, this was done for about an hour, follow-up ABG on 40% FiO2 and pressure support showed a pO2 of 74 pCO2 60 pH of 7.42 and the patient was again appropriate, recommended extubation. He was placed on BiPAP 14/6/50% which will be titrated down to 40%. Patient had blood cultures negative so far, sputum cultures were sent today. WBC count is 5.7 hemoglobin 9.3, Basic metabolic profile is normal BUN is 30 creatinine 1.28 chest x-ray continues show bilateral airspace disease mostly involving upper lobes. Seen today on 02/26/2024, patient was extubated yesterday, tolerated the extubation well, overnight he was kept on BiPAP 16/6/50% patient remains on Lasix 40 mg IV push every 8 hours remains on Zosyn and Eliquis, clinically the patient is feeling much better breathing a lot easier, I was able to titrate him down to 2 L nasal cannula and he seems to be doing well. Neurologically patient is weak but seems to be very appropriate. WBC count is 3.8 hemoglobin is 9.3electrolytes are normal BUN is 26 creatinine down to 1.21 blood cultures and sputum cultures remain negative so far. Chest x-ray continues to show diffuse bilateral airspace disease with small pleural effusions Patient was seen today on, patient is still in ICU, he is on 6 L nasal cannula, O2 saturation is in the high 90s. Intermittently or at night on BiPAP 16/6/50%. Remains on Lasix 40 mg IV push twice daily remains on Zosyn remains on Eliquis chest x-ray is showing slight improvement but clinically the patient is significantly improved. WBC count is 4 hemoglobin 9.6 electrolytes are normal renal profile is normal creatinine is down to 1.07 today from 1.35 few days ago patient remains in negative fluid balance since admission and continues to improve with diuretics. Reevaluate today on 03/19/2024, patient remains in the ICU, significant clinical improvement noted, slight improvement noted on chest x-ray but the clinical improvement is much better than the radiographic improvement noted. Patient is now 3 L nasal cannula, does not seem to be in any distress, at night he was placed on BiPAP 16/6/50%, patient remains on Lasix at 40 mg IV push twice daily he is also on Zosyn although his procalcitonin level is 0.10 remains on Eliquis. His chest x-ray findings remain worrisome in spite of his significant clinical improvement. Hence I am keeping him on antibiotics and I am keeping him on diuretics. CBC today is normal electrolytes are normal bicarb is 38 BUN is 17 creatinine improving down to 1.03 The patient is seen today March 20, 2024 in follow-up in the intensive care unit. He is currently sitting up in bed. Awake and alert in no acute distress. He is maintaining good O2 saturations in the 90s on 4 L/min per nasal cannula. He did wear BiPAP last night 16/6 and 50% FiO2. He has normal saline at KVO. He is continued on Zosyn. On oral diuretics. Anticoagulated with Eliquis. Blood and sputum cultures revealed no growth. White count 4.6. Hemoglobin 9.9. Platelets 240. Sodium 138. Potassium 3.9. Bicarb 40. BUN 16. Creatinine 0.93. His procalcitonin was negative at 0.10. The patient is seen today March 21, 2024 in follow-up in the intensive care unit. He is currently awake and alert in no acute distress. Sitting up in bed. On 2 L per minute per nasal cannula. No worsening shortness of breath, cough or congestion. Blood and sputum cultures revealed no growth. White count 3.4. Hemoglobin 10.0. Platelets 241. Sodium 138. Potassium 4.2. Bicarb 43. BUN 14. Creatinine 0.93. He remains anticoagulated with Eliquis. Continued on oral diuretics. Progress note dated March 22, 2024. 78-year-old male seen today in room 357. The patient is on 3 L of oxygen. No IV fluids. The patient's daughter is in the room. She has a number of questions and we try to answer all of them for her. The patient is doing b amanda, and would like to get out of bed, and maybe even walk around the room. All he has to do is call for the nurses. Current labs include a sodium 136, potassium 4.3, chlorides 92, CO2 38, BUN 13, creatinine 1. Glucose is 83. Progress note dated March 23, 2024. 78-year-old male seen today in room 357. He is sitting in a chair next to his hospital bed. The patient appears to be doing relatively well. He would like to be discharged home. He is sitting up in a chair as mentioned. He is on 3 L of oxygen. White count 3.8, hemoglobin 10.1, hematocrit 33.1, and platelet count is 231,000. Sodium 138, potassium 4.4, chlorides 93, CO2 40, BUN 15, creatinine 0.96. Albumin is 3. Progress note dated March 24, 2024. 78-year-old male who is seen today in room 357. The patient is sitting in the chair next to his hospital bed. He is currently on oxygen, at 3 L. Saturations are between 93 and 95%. He is not receiving any IV fluids. The patient is hoping to be discharged soon. White count is 4, hemoglobin 10.4, hematocrit 33.7, platelet count 227,000. Sodium 137, potassium 4.2, chloride 71, CO2 38, BUN 18, creatinine 0.92. Objective - Vital Signs Vital signs: Vital Signs Temp 97.8 F 03/24/24 08:45 Pulse 58 L 03/24/24 11:55 Resp 16 03/24/24 11:55 BP 111/62 03/24/24 11:55 Pulse Ox 93 L 03/24/24 11:55 FiO2 50 03/20/24 03:11 Intake & Output 03/23/24 03/24/24 03/24/24 18:59 06:59 18:59 Intake Total 20 20 110 Output Total 1000 625 850 Balance -980 -605 -740 Weight 86.5 kg Intake: IV 20 20 10 Invasive Line 5 20 20 10 Oral 0 100 Output: Urine 1000 625 850 Other: Voiding Method Indwelling Catheter Indwelling Catheter Indwelling Catheter ABP, PAP, CO, CI - Last Documented Arterial Blood Pressure 122/42 - Exam No acute distress, oriented 3. Currently on 3 L. HEENT examination is grossly unremarkable. Mucous membranes are moist. No oral lesions. Neck supple. Full range of motion. No adenopathy thyromegaly or neck vein distention. Cardiovascular examination reveals regular rhythm rate. S1-S2 normal. No S3 or S4. Harsh murmur of aortic stenosis noted. Lungs reveal minimal bibasilar crackles. No wheezes or rhonchi. Breath sounds equal. Abdomen soft bowel sounds are heard. No masses or tenderness. Extremities are intact. No cyanosis clubbing or edema. Skin is without rash or lesion. Neurologic examination is brief but nonfocal. - Labs CBC & Chem 7: 03/24/24 05:31 03/24/24 05:31 Labs: Abnormal Lab Results - Last 24 Hours (Table) 03/24/24 03/24/24 Range/Units 05:31 05:31 RBC 3.90 L (4.30-5.90) m/uL Hgb 10.4 L (13.0-17.5) gm/dL Hct 33.7 L (39.0-53.0) % Lymphocytes # 0.8 L (1.0-4.8) k/uL Chloride 91 L (98-107) mmol/L Carbon Dioxide 38 H (22-30) mmol/L Albumin 3.3 L (3.5-5.0) g/dL Assessment and Plan Assessment: Acute hypoxemic and hypercapnic respiratory failure secondary to an acute exacerbation of diastolic congestive heart failure and valvular heart disease. He did require being intubated on 03/15/2024 and subsequently extubated the next day on 03/16/2024. History of atrial fibrillation. Moderate aortic stenosis. Recent admission here from December 15, 2023 through December 29, 2023 for acute kidney injury. Femur fracture requiring hospitalization and surgical repair November 27, 2023 and discharged to [facility] November 30, 2023. History of CVA with residual left-sided weakness. Anemia of chronic disease. Benign prostatic hyperplasia. Hypertension. Hyperlipidemia. Former smoker. Plan: Plan dated March 22, 2024. The patient is doing relatively well. He is resting comfortably in bed. He continues on 3 L. His daughter is in the room. He is not receiving any IV fluids. Labs, x-rays, medications are reviewed. We will continue to follow the patient, make recommendations along the way. The patient's heart failure, in part, is related to his moderately severe aortic stenosis. The patient would like to get out of bed and sit in the chair, and/or walk around. All he has to do is asked for the nurses. Plan dated March 23, 2024. The patient is resting comfortably in his room. He is sitting in a chair next to his hospital bed. He continues on oxygen at 3 L. He mentions that he wants to be discharged home. Certainly will leave that up to the primary service. The patient is now been in the hospital for 9 days. Labs, x-rays, and all medications are reviewed. We will continue to follow the patient, make recommendations where appropriate. No recent chest x-ray. Blood cultures and other cultures are negative. Prognosis is guarded. Plan dated March 24, 2024. The patient is seen today in room 357. He continues on oxygen at 3 L. Saturations are 93%. He is not receiving any IV fluids. Labs, x-rays, and all medications are reviewed. We will continue to follow make recommendations along the way. Prognosis is guarded. The patient is hoping to be discharged soon. Discharge planning underway. Time with Patient: Less than 30
--- NOTE | 2024-03-24 14:17 | P.PN ---
Subjective Progress Note Date: 03/24/24 PROGRESS NOTE The patient is a 78-year-old male who presented with symptoms of progressive dyspnea and respiratory failure requiring mechanical ventilation. He is awake, denies any chest discomfort, dizziness or palpitations. He is in sinus mechanism and hemodynamically stable not requiring vasopressors. He has a history of paroxysmal atrial fibrillation. His echocardiogram showed an ejection fraction of 60 to 65%, with moderate to severe aortic stenosis. His urinary output has been stable, he continues to be on IV diuretics. He had no episodes of atrial fibrillation. March 21: The patient is feels better today, he feels stronger and is anxious to go home. He continues to be in sinus mechanism and he has no significant bradycardia arrhythmia. He denies any chest discomfort, dizziness or palpitations. He denies any nausea or vomiting. He had mild hematuria that is improving. He has not been out of bed yet. Medications: Eliquis 5 mg twice a day, Lipitor 40 mg daily, Lasix 40 mg p.o. every 12 hours, Zosyn, spironolactone 25 mg daily. 03/22/2024 BP 113/65, heart rate 58 bpm, kidney function is stable, bicarb is improving. 03/23/24 Patient states that he is feeling stronger and better in general. He states he wants to go home. He denies have any chest pain no dizziness. Blood pressure 116/58, heart rate 62, pulse ox 93% on 3 L nasal cannula. Telemetry is sinus rhythm. Repeat blood work reveals hemoglobin 10.3. BUN 15, creatinine 0.96, potassium 4.4. Patient is waiting for insurance authorization for subacute rehab. 03/24/24 Patient seen and examined. No new concerns today. Vital signs have been stable. Blood pressure 117/62, heart rate 63, pulse ox 92% on 3 L nasal cannula. WBC 4, hemoglobin 10.4. Sodium 137, potassium 4.2, creatinine 0.92. Patient is waiting for insurance authorization for subacute rehab. PHYSICAL EXAMINATION: LUNGS: Few crackles at the base HEART: Regular rate and rhythm, S1, S2. No S3. Systolic ejection murmur, /6 ABDOMEN: Soft, nontender, no organomegaly EXTREMETIES: No edema IMPRESSION: 1. Acute hypoxic and hypercapnic respiratory failure secondary to acute on chronic diastolic heart failure 2. Moderate aortic stenosis by echocardiography although suboptimal 3. Paroxysmal atrial fibrillation, maintaining sinus mechanism 4. Pneumonia, improving 5. Hyperlipidemia PLAN: Continue current medications Increase patient activity Patient will need follow-up in the office regarding aortic stenosis and further workup regarding this. Patient is cleared for discharge from cardiology perspective. Nurse practitioner note has been reviewed, I agree with documented findings and plan of care. Patient was seen and examined. Objective - Vital Signs Vital signs: Vital Signs Temp 98.1 F 03/24/24 03:46 Pulse 57 L 03/24/24 03:46 Resp 16 03/24/24 03:46 BP 115/70 03/24/24 03:46 Pulse Ox 97 03/24/24 03:46 FiO2 50 03/20/24 03:11 Intake & Output 03/23/24 03/24/24 03/24/24 18:59 06:59 18:59 Intake Total 20 20 10 Output Total 1000 625 Balance -980 -605 10 Weight 86.5 kg Intake: IV 20 20 10 Invasive Line 5 20 20 10 Oral 0 Output: Urine 1000 625 Other: Voiding Method Indwelling Catheter Indwelling Catheter ABP, PAP, CO, CI - Last Documented Arterial Blood Pressure 122/42 - Labs CBC & Chem 7: 03/24/24 05:31 03/24/24 05:31 Labs: Abnormal Lab Results - Last 24 Hours (Table) 03/24/24 03/24/24 Range/Units 05:31 05:31 RBC 3.90 L (4.30-5.90) m/uL Hgb 10.4 L (13.0-17.5) gm/dL Hct 33.7 L (39.0-53.0) % Lymphocytes # 0.8 L (1.0-4.8) k/uL Chloride 91 L (98-107) mmol/L Carbon Dioxide 38 H (22-30) mmol/L Albumin 3.3 L (3.5-5.0) g/dL
--- NOTE | 2024-03-25 15:06 | P.PN ---
Subjective Progress Note Date: 03/23/24 Principal diagnosis: Reason for follow-up is pneumonia Patient is a 78-year-old male with a past medical history significant for hypertension hyperlipidemia BPH atrial fibrillation presenting to the hospital for evaluation of increasing shortness of breath with initial concern for possible CHF did have worsening of his respiratory status also become unresponsive requiring intubation and transferred to ICU ID consulted for possible pneumonia. On today's evaluation that is 03/23/2024,the patient remains to be afebrile, patient is on 3 L nasal cannula supplemental oxygen and denies any shortness of breath no chest pain or cough.Patient denies having any nausea or vomiting, no abdominal pain and no diarrhea has been reported. The patient white count is 3.8, creatinine 0.96 Objective - Vital Signs Vital signs: Vital Signs Temp 96.6 F L 03/23/24 11:24 Pulse 60 03/23/24 11:24 Resp 16 03/23/24 11:24 BP 121/60 03/23/24 11:24 Pulse Ox 96 03/23/24 11:24 FiO2 50 03/20/24 03:11 Intake & Output 03/22/24 03/23/24 03/23/24 18:59 06:59 18:59 Intake Total 10 Output Total 900 600 Balance -900 -600 10 Weight 89.1 kg Intake: IV 10 Invasive Line 5 10 Oral 0 Output: Urine 900 600 Uretheral (Rich) 600 Other: Voiding Method Indwelling Catheter Indwelling Catheter Indwelling Catheter ABP, PAP, CO, CI - Last Documented Arterial Blood Pressure 122/42 - Exam GENERAL DESCRIPTION: An elderly male lying in bed in no distress RESPIRATORY SYSTEM: Unlabored breathing , coarse breath sounds bilaterally HEART: S1 S2 regular rate and rhythm , ABDOMEN: Soft , no tenderness EXTREMITIES: No edema feet - Labs CBC & Chem 7: 03/24/24 05:31 03/24/24 05:31 Labs: Abnormal Lab Results - Last 24 Hours (Table) 03/23/24 03/23/24 Range/Units 05:42 05:42 RBC 3.84 L (4.30-5.90) m/uL Hgb 10.1 L (13.0-17.5) gm/dL Hct 33.1 L (39.0-53.0) % MCHC 30.4 L (31.0-37.0) g/dL Lymphocytes # 0.8 L (1.0-4.8) k/uL Chloride 93 L (98-107) mmol/L Carbon Dioxide 40 H (22-30) mmol/L Albumin 3.0 L (3.5-5.0) g/dL Assessment and Plan (1) Pneumonia Current Visit: Yes Status: Acute Code(s): J18.9 - PNEUMONIA, UNSPECIFIED ORGANISM SNOMED Code(s): 957223643 Plan: 1patient presented to hospital with increasing shortness of breath which is likely multifactorial patient initial workup was suggestive of mostly bilateral pulmonary subtle congestion effusion in this patient who did have normal white count not febrile which is all suggestive of possible CHF exacerbation now with worsening of his respiratory status requiring intubation and admission to the ICU possible component of pneumonia 2-patient did have resolution of his fever white count is normal, the patient blood and sputum culture has been negative chest x-ray this morning with multifocal airspace disease 3patient has received a course of Zosyn which has been subsequent discontinued and seem to be doing well off antibiotics ID will sign off please call back if any question regarding his infectious disease care Dictation was produced using [employer]! dictation software. please excuse any grammatical, word or spelling errors.
--- NOTE | 2024-03-25 15:06 | P.PN ---
Subjective Progress Note Date: 03/22/24 Principal diagnosis: Reason for follow-up is pneumonia Patient is a 78-year-old male with a past medical history significant for hypertension hyperlipidemia BPH atrial fibrillation presenting to the hospital for evaluation of increasing shortness of breath with initial concern for possible CHF did have worsening of his respiratory status also become unresponsive requiring intubation and transferred to ICU ID consulted for possible pneumonia. On today's evaluation that is 03/22/2024,the patient denies any fever or any chills, patient is breathing comfortably on 3 L current oxygen, the patient denies chest pain shortness of breath and no significant cough, patient denies abdominal pain, no nausea vomiting or diarrhea. Patient did have a creatinine 1.0 no CBC was done today blood and sputum culture have been negative Objective - Vital Signs Vital signs: Vital Signs Temp 98.2 F 03/22/24 08:15 Pulse 59 L 03/22/24 12:00 Resp 18 03/22/24 12:00 BP 113/64 03/22/24 12:00 Pulse Ox 95 03/22/24 12:00 FiO2 50 03/20/24 03:11 Intake & Output 03/21/24 03/22/24 03/22/24 18:59 06:59 18:59 Intake Total 180 Output Total 300 1750 900 Balance -120 -1750 -900 Weight 91 kg Intake: Oral 180 Output: Urine 300 1750 900 Other: Voiding Method Indwelling Catheter Indwelling Catheter Indwelling Catheter # Bowel Movements 1 ABP, PAP, CO, CI - Last Documented Arterial Blood Pressure 122/42 - Exam GENERAL DESCRIPTION: An elderly male lying in bed in no distress RESPIRATORY SYSTEM: Unlabored breathing , coarse breath sounds bilaterally HEART: S1 S2 regular rate and rhythm , ABDOMEN: Soft , no tenderness EXTREMITIES: No edema feet - Labs CBC & Chem 7: 03/24/24 05:31 03/24/24 05:31 Labs: Abnormal Lab Results - Last 24 Hours (Table) 03/22/24 Range/Units 06:51 Sodium 136 L (137-145) mmol/L Chloride 92 L (98-107) mmol/L Carbon Dioxide 38 H (22-30) mmol/L Assessment and Plan (1) Pneumonia Current Visit: Yes Status: Acute Code(s): J18.9 - PNEUMONIA, UNSPECIFIED ORGANISM SNOMED Code(s): 922214921 Plan: 1patient presented to hospital with increasing shortness of breath which is likely multifactorial patient initial workup was suggestive of mostly bilateral pulmonary subtle congestion effusion in this patient who did have normal white count not febrile which is all suggestive of possible CHF exacerbation now with worsening of his respiratory status requiring intubation and admission to the ICU possible component of pneumonia 2-patient did have resolution of his fever white count is normal, the patient blood and sputum culture has been negative chest x-ray this morning with multifocal airspace disease 3patient has received a course of Zosyn which has been subsequent discontinued and seem to be doing well off antibiotics and we will monitor closely off antibiotic at this point Dictation was produced using [employer] dictation software. please excuse any grammatical, word or spelling errors.
== END 2024-03-24 16:36 | DRG 208 ==
LOC: EDBD → EC 06:02 → 3SCARD 09:44 → MERGE 09:44 → 3SCARD 11:42 → 2SICU 03-15 15:38 → 3SCARD 03-21 12:43
PROVIDERS: ADMIT Internal Medicine; ATTEND Internal Medicine
PROC: 5A09357 Assistance with Respiratory Ventilation, Less than 24 Consecutive Hours, Continuous Positive Airway Pressure (ICD-10-PCS; 2024-03-14)
PROC: 5A1935Z Respiratory Ventilation, Less than 24 Consecutive Hours (ICD-10-PCS; principal; 2024-03-15)
PROC: 0BH17EZ Insertion of Endotracheal Airway into Trachea, Via Natural or Artificial Opening (ICD-10-PCS; 2024-03-15)
DX: J15.9 Unspecified bacterial pneumonia (principal); I50.33 Acute on chronic diastolic (congestive) heart failure; J96.01 Acute respiratory failure with hypoxia; J96.02 Acute respiratory failure with hypercapnia; I69.354 Hemiplegia and hemiparesis following cerebral infarction affecting left non-dominant side; I11.0 Hypertensive heart disease with heart failure; Z11.52 Encounter for screening for COVID-19; E78.5 Hyperlipidemia, unspecified; E66.9 Obesity, unspecified; I44.0 Atrioventricular block, first degree; R31.9 Hematuria, unspecified; Z68.26 Body mass index [BMI] 26.0-26.9, adult; D63.8 Anemia in other chronic diseases classified elsewhere; I48.0 Paroxysmal atrial fibrillation; N40.0 Benign prostatic hyperplasia without lower urinary tract symptoms; I35.0 Nonrheumatic aortic (valve) stenosis; Z79.01 Long term (current) use of anticoagulants; Z79.899 Other long term (current) drug therapy; Z87.891 Personal history of nicotine dependence
CPT/HCPCS: 36415; 36600; 71045; 71046; 71275; 80048; 80053; 82805; 83605; 83735; 83880; 84132; 84145; 84484; 85025; 85027; 85379; 85610; 85730; 86140; 87040; 87070; 87205; 87449; 87636; 93005; 93306; 94002; 94003; 94660; 94760; 96365; 96367; 96375; 96376; 99285